=== PATIENT | female | born 1985 | race Caucasian/White ===

== ENCOUNTER 2018-06-11 10:14 | Outpatient (REF) | payer MEDICAID, SELFPAY ==
[2018-06-11 22:09] LABS: HCT 35.7 % (36.0-46.0); HGB 10.7 g/dL (12.0-15.5); Mean Corpuscular Hemoglobin 25.5 pg (27.0-33.0); Mean Corpuscular Volume 85.2 fL (80-95); Mean Platelet Volume 11.2 fL (8.0-11.0); Platelet Count 308 x1000/uL (130-400); RBC 4.19 m/cumm (4.00-5.20); RBC Distribution Width 15.3 % (11.7-14.6); White Blood Cell Count 8.24 k/cumm (4.4-10.8)
[2018-06-11 22:47] LABS: Cholesterol 143 mg/dL (50-200); Glucose 80 mg/dL (70-100); HDL Cholesterol 42 mg/dL (40-60); LDL CHOLESTEROL 91 mg/dL (<100); TSH 1.61 uIU/mL (0.358-3.74); Triglyceride 121 mg/dL (30-150)
== END 2018-06-11 10:34 ==
LOC: NCHCN 10:14
PROVIDERS: PCP Internal Medicine; Visit Provider Registered Nurse
DX: R53.83 Other fatigue (principal); Z83.3 Family history of diabetes mellitus; Z00.00 Encounter for general adult medical examination without abnormal findings
CPT/HCPCS: 80061; 82947; 83721; 85027; 84443

== ENCOUNTER 2018-06-14 09:18 | Outpatient (REF) | payer MEDICAID, SELFPAY ==
[2018-06-14 21:11] LABS: Iron 23 ug/dL (50-175); Total Iron Binding Capacity 528 ug/dL (250-450); Transferrin Sat 4 % (15-50)
[2018-06-14 21:18] LABS: Anion Gap 10.2 mmol/L (3-11); BUN 14 mg/dL (7-18); CO2 25.8 mmol/L (21.0-32.0); CREATININE 0.76 mg/dL (0.55-1.02); Calcium 8.7 mg/dL (8.5-10.1); Chloride 104 mmol/L (98-107); Ferritin 9 ng/mL (8-388); Glucose 86 mg/dL (70-100); Sodium 140 mmol/L (136-145)
[2018-06-14 21:55] LABS: C-Reactive Protein 0.83 mg/dL (0.0-0.3)
== END 2018-06-14 09:38 ==
LOC: NCHCN 09:18
PROVIDERS: PCP Internal Medicine; Visit Provider Registered Nurse
DX: Z86.2 Personal history of diseases of the blood and blood-forming organs and certain disorders involving the immune mechanism (principal); Z83.3 Family history of diabetes mellitus
CPT/HCPCS: 80048; 82728; 83540; 83550; 86140

== ENCOUNTER 2018-07-03 10:22 | Outpatient (REF) | payer MEDICAID, SELFPAY ==
[2018-07-03 22:08] LABS: Abs Immature Grans 0.02 k/cumm (0.0-0.09); Absolute Basophil Count 0.03 k/cumm (0.0-0.2); Absolute Eosinophil Count 0.11 k/cumm (0.0-0.7); Absolute Lymphocyte Count 2.23 k/cumm (1.2-3.4); Absolute Neutrophil Count 3.88 k/cumm (1.2-6.7); Basophils % 0.4; Eosinophils % 1.6; HCT 38.2 % (36.0-46.0); HGB 11.8 g/dL (12.0-15.5); Immature Grans % 0.3; Lymphocytes % 32.9; Mean Corp. HGB Concentration 30.9 g/dL (32.0-36.0); Mean Corpuscular Hemoglobin 26.2 pg (27.0-33.0); Mean Corpuscular Volume 84.9 fL (80-95); Mean Platelet Volume 11.1 fL (8.0-11.0); Monocytes % 7.4; Neutrophils % 57.4; Platelet Count 293 x1000/uL (130-400); RBC Distribution Width 17.2 % (11.7-14.6); White Blood Cell Count 6.77 k/cumm (4.4-10.8)
[2018-07-03 22:15] LABS: ALT 24 U/L (12-78); AST 15 U/L (15-37); Albumin 3.4 g/dL (3.4-5.0); Alkaline Phosphatase 66 U/L (46-116); Anion Gap 9.7 mmol/L (3-11); BUN 12 mg/dL (7-18); Bilirubin, Total 0.2 mg/dL (0.2-1.0); CO2 26.3 mmol/L (21.0-32.0); CREATININE 0.79 mg/dL (0.55-1.02); Chloride 104 mmol/L (98-107); Glucose 84 mg/dL (70-100); Lipase 136 U/L (73-393); Potassium 4.1 mmol/L (3.5-5.1); Sodium 140 mmol/L (136-145)
== END 2018-07-03 10:42 ==
LOC: NCHCN 10:22
PROVIDERS: PCP Internal Medicine; Visit Provider Registered Nurse
DX: R10.9 Unspecified abdominal pain (principal); Z87.19 Personal history of other diseases of the digestive system; R82.90 Unspecified abnormal findings in urine; R30.0 Dysuria
CPT/HCPCS: 80053; 83690; 87077; 85025; 87086; 87186

== ENCOUNTER 2018-08-02 09:42 | Outpatient (REF) | payer MEDICAID, SELFPAY ==
[2018-08-02 22:18] LABS: Folate 8.5 ng/mL (8.6-20.0); Vitamin B12 296 pg/mL (193-986)
[2018-08-05 08:53] LABS: Vitamin D 25 Total 17.9 ng/ml (30-100)
== END 2018-08-02 10:02 ==
LOC: NCHCN 09:42
PROVIDERS: PCP Internal Medicine; Visit Provider Nurse Practitioner Family
DX: F41.8 Other specified anxiety disorders (principal); F43.10 Post-traumatic stress disorder, unspecified; R45.851 Suicidal ideations; Z65.9 Problem related to unspecified psychosocial circumstances; Z62.810 Personal history of physical and sexual abuse in childhood
CPT/HCPCS: 82306; 82607; 82746

== ENCOUNTER 2019-06-18 12:08 | Outpatient (REF) | payer MEDICAID, SELFPAY ==
[2019-06-18 22:47] LABS: Abs Immature Grans 0.02 k/cumm (0.0-0.09); Absolute Basophil Count 0.03 k/cumm (0.0-0.2); Absolute Eosinophil Count 0.21 k/cumm (0.0-0.7); Absolute Lymphocyte Count 1.79 k/cumm (1.2-3.4); Absolute Monocyte Count 0.56 k/cumm (0.11-0.7); Absolute Neutrophil Count 4.53 k/cumm (1.2-6.7); Basophils % 0.4; Eosinophils % 2.9; HCT 39.8 % (36.0-46.0); HGB 13.3 g/dL (12.0-15.5); Immature Grans % 0.3; Lymphocytes % 25.1; Mean Corp. HGB Concentration 33.4 g/dL (32.0-36.0); Mean Corpuscular Hemoglobin 30.8 pg (27.0-33.0); Mean Corpuscular Volume 92.1 fL (80-95); Mean Platelet Volume 10.7 fL (8.0-11.0); Monocytes % 7.8; Neutrophils % 63.5; Platelet Count 329 x1000/uL (130-400); RBC 4.32 m/cumm (4.00-5.20); RBC Distribution Width 12.6 % (11.7-14.6); White Blood Cell Count 7.14 k/cumm (4.4-10.8)
[2019-06-18 23:17] LABS: ALT 33 U/L (14-59); AST 18 U/L (15-37); Albumin 3.8 g/dL (3.4-5.0); Alkaline Phosphatase 58 U/L (46-116); Anion Gap 9.9 mmol/L (3-11); BUN 10 mg/dL (7-18); Bilirubin, Total 0.3 mg/dL (0.2-1.0); CO2 24.1 mmol/L (21.0-32.0); CREATININE 0.78 mg/dL (0.55-1.02); Chloride 107 mmol/L (98-107); Glucose 85 mg/dL (70-100); Potassium 4.1 mmol/L (3.5-5.1); Sodium 141 mmol/L (136-145); TSH 1.31 uIU/mL (0.36-3.74); Total Protein 7.2 g/dL (6.4-8.2)
== END 2019-06-18 12:28 ==
LOC: NCHCN 12:08
PROVIDERS: PCP Internal Medicine; Visit Provider Registered Nurse
DX: N93.9 Abnormal uterine and vaginal bleeding, unspecified (principal); K76.89 Other specified diseases of liver; K76.0 Fatty (change of) liver, not elsewhere classified
CPT/HCPCS: 80053; 84443; 85025

== ENCOUNTER 2019-10-28 09:10 | Outpatient (REF) | payer MEDICAID, SELFPAY ==
[2019-10-28 22:02] LABS: Vitamin B12 354 pg/mL (193-986)
[2019-10-30 04:44] LABS: Vitamin D 25 Total 17.2 ng/ml (30-100)
== END 2019-10-28 09:30 ==
LOC: NCHCN 09:10
PROVIDERS: PCP Registered Nurse; Visit Provider Registered Nurse
DX: R53.83 Other fatigue (principal)
CPT/HCPCS: 82306; 82607

== ENCOUNTER 2020-01-02 12:16 | Outpatient (REF) | payer MEDICAID, SELFPAY ==
[2020-01-02 21:01] LABS: Glucose 93 mg/dL (74-106)
[2020-01-05 09:45] LABS: Vitamin D 25 Total 20.7 ng/ml (30-100)
== END 2020-01-02 12:36 ==
LOC: NCHCN 12:16
PROVIDERS: PCP Registered Nurse; Visit Provider Registered Nurse
DX: E55.9 Vitamin D deficiency, unspecified (principal); Z11.3 Encounter for screening for infections with a predominantly sexual mode of transmission; Z83.3 Family history of diabetes mellitus
CPT/HCPCS: 82306; 82947

== ENCOUNTER 2020-03-24 20:48 | Emergency (ER) | payer MEDICAID, SELFPAY ==
[2020-03-24] VITALS (11 sets, daily range): BP systolic 121–153; BP diastolic 66–95; PULSE 72–88; RESP 16; TEMP 37; O2SAT 95–98
--- NOTE | 2020-03-24 20:45 | RT.EKG_ITS ---
APPROVED REPORT Exam: Resting ECG Patient Location: E HR:76 bpm ECG Measurements Heart Rate 76 AXIS OK 141 P 55 QRSd 99 QRS 23 QT 408 T 37 QTc 460 <Conclusion> EKG 20: 57 Sinus rhythm, rate 76, intervals normal, no significant ST elevations or depressions, no evidence of STEMI, no S1Q3T3.
--- NOTE | 2020-03-24 21:08 | W.ED.GENAD ---
Discharge Plan Disposition Patient Disposition: HOME Condition: Good Discharge Details Chief Complaint: Chest Pain Clinical Impression: Bronchitis, Chest wall muscle strain Primary Care Provider: ALCIRA VALDES ED Provider: Marshal Warren Home Meds and New Rx's Prescriptions: New lidocaine [Lidoderm] 1 PATCH patch 1 patch Topical Q24H Qty: 4 RF: 0 Continued sertraline 100 mg Tablet 100 mg PO DAILY RF: 0 buspirone 10 mg Tablet 10 mg PO BID RF: 0 montelukast 10 mg Tablet 10 mg PO DAILY RF: 0 albuterol sulfate [ProAir HFA] 90 mcg/actuation Hfa Aerosol Inhaler 2 puff INHALATION 6XD PRNRF: 0 cholecalciferol (vitamin D3) [Vitamin D3] 10 mcg (400 unit) Tablet 10 mcg PO DAILY RF: 0 Flovent HFA 110 mcg/actuation Hfa Aerosol Inhaler 2 puff INHALATION BID RF: 0 Discharge Instructions Instructions: Muscle Strain (ED), Acute Bronchitis (ED) Additional Instructions: At this time. Blood work, and imaging shows no evidence of blood clot, heart problem, pneumonia, or any suggestions clinically of coronavirus. There is suggestion of mild bronchial irritation which may be from a mild virus, or more likely potential allergies. No signs of pneumonia though. Your symptoms are also consistent with a notable pectoralis muscle strain, and likely from all the moving that you have done, potentially worsened by the fibromyalgia. Please ice your chest wall where it hurts, use the Lidoderm patch as directed. Get plenty of rest over the next 2 days injury and to 12 cups of fluid daily. If you notice any worsening of your symptoms, or any new symptoms such as vomiting, diarrhea, fever, chills, shortness of breath, chest pain, numbness, weakness, or fainting , please return immediately to the emergency department for reevaluation. Please follow up with your primary care provider as soon as possible for reassessment and reevaluation. As always, it was a pleasure participating in your medical care today. Referrals: ALCIRA VALDES, [employer] [Primary Care Provider] - Medical Decision Making 34-year-old female with a past medical history of asthma, fibromyalgia, presents today for evaluation of left-sided chest pain shortness of breath. Patient states that for the last few days they have been doing a significant amount of moving in their house. They are moving from one close down to another locally here. She has been doing a lot of activity in labor, early this morning she noticed that she had mild soreness in the left side of her chest which she describes as a tightness. Nonexertional. She did have mild shortness of breath associated with it. Pain is was made worse with movements of the left arm, activity, and palpation of the left chest. She did take her inhalers this did not improve that at all. She states that this does feel different than her normal asthma. Denies PE risk factors such as recent long car rides, immobilization, recent surgery, prior history of DVT or PE, family history of PE or DVT, morbid obesity, exogenous estrogen and smoking, hemoptysis, history of cancer. Patient does state that her mother does have history of cardiac disease at age of 50. Patient denies any history of personal tobacco abuse. No other complaints at this time. No other modifying factors. The patient denies any recent foreign travel or contact with recent immigrants, Travelers, or peoples of [place] or [facility] or internationally. The patient denies any recent travel to high risk countries or high risk areas in the [place], or other areas of noted or significant coronavirus infection. Physical exam is notably unremarkable, no wheezing, no rhonchi or rales. No calf tenderness or swelling. The only objective finding is notable reproducible tenderness on palpation of the pectoralis major minor muscles and left parasternal intercostal joints. Suspect musculoskeletal strain secondary to the lifting that she has been performing. Unlikely to be PE, ACS or other acute process. Will give Lidoderm patch, get screening labs to rule out acute life-threatening etiologies, monitor closely and reassess. 10:25 PM Patient's laboratory work-up is returned notably unremarkable. Electrolytes normal, troponin normal, no indication for repeat troponin as her symptoms have been present for 2 days. D-dimer negative. Lipase normal. Chest x-ray shows mild peribronchial thickening and perihilar stranding suggestive of possible bronchitis, potentially from allergies versus viral etiology, no groundglass opacities or haziness suggestive of coronavirus. Symptoms certainly inconsistent with significant infectious etiology, no fever, chills or other complaints. She does have notable reproducible pain over the left pectoralis muscle suggestive of a left muscle strain. At this time with notably consistently stable vital signs and no signs of acute cardiac or pulmonary process, in conjunction with negative d-dimer and troponins patient will be discharged home. Suggest muscle strain mild bronchitis. Discussed red flags for which to return. I have extensively reviewed the treatment plan and discharge instructions with the patient. I have addressed all patient concerns at this time. The patient was made aware of what symptoms to monitor for that would warrant a return to the emergency department. Discussed the plan with the patient, they demonstrate verbal understanding and agreement with our assessment and plan at this time. Also of note I did contact the patient's and discussed the case with him as well. He is in agreement with the plan. EKG 20: 57 Sinus rhythm, rate 76, intervals normal, no significant ST elevations or depressions, no evidence of STEMI, no S1Q3T3. FINDINGS: Lungs: Mild peribronchial thickening and perihilar stranding suggesting possible bronchitis. Normal pulmonary expansion. Pulmonary vasculature grossly normal. No infiltrates. Pleural space: No pleural effusion. No pneumothorax. Heart/Mediastinum: Heart size normal. No tracheal/mediastinal shift. Bones/joints: No acute osseous abnormalities are identified. IMPRESSION: Mild peribronchial thickening and perihilar stranding suggesting possible bronchitis. No gross pulmonary infiltrates. Thank you for allowing us to participate in the care of your patient. Dictated and Authenticated by: Flynn Clayton MD 03/24/2020 9:50 PM Eastern Time ([place] & [place]) HPI General Date/Time Provider Initiated Documentation: 03/24/20 20:53. HPI Narrative: 34-year-old female with a past medical history of asthma, fibromyalgia, presents today for evaluation of left-sided chest pain shortness of breath. Patient states that for the last few days they have been doing a significant amount of moving in their house. They are moving from one close down to another locally here. She has been doing a lot of activity in labor, early this morning she noticed that she had mild soreness in the left side of her chest which she describes as a tightness. Nonexertional. She did have mild shortness of breath associated with it. Pain is was made worse with movements of the left arm, activity, and palpation of the left chest. She did take her inhalers this did not improve that at all. She states that this does feel different than her normal asthma. Denies PE risk factors such as recent long car rides, immobilization, recent surgery, prior history of DVT or PE, family history of PE or DVT, morbid obesity, exogenous estrogen and smoking, hemoptysis, history of cancer. Patient does state that her mother does have history of cardiac disease at age of 50. Patient denies any history of personal tobacco abuse. No other complaints at this time. No other modifying factors. The patient denies any recent foreign travel or contact with recent immigrants, Travelers, or peoples of [place] or [facility] or internationally. The patient denies any recent travel to high risk countries or high risk areas in the [place], or other areas of noted or significant coronavirus infection. Related Data Home Medications Medication Instructions Recorded Confirmed Flovent HFA 2 puff INHALATION BID 03/24/20 03/24/20 albuterol sulfate [ProAir HFA] 2 puff INHALATION 6XD PRN 03/24/20 03/24/20 buspirone 10 mg PO BID 03/24/20 03/24/20 cholecalciferol (vitamin D3) 10 mcg PO DAILY 03/24/20 03/24/20 [Vitamin D3] lidocaine [Lidoderm] 1 patch TOPICAL Q24H #4 patch 03/24/20 montelukast 10 mg PO DAILY 03/24/20 03/24/20 sertraline 100 mg PO DAILY 03/24/20 03/24/20 Previous Rx's Medication Instructions Recorded lidocaine [Lidoderm] 1 patch TOPICAL Q24H #4 patch 03/24/20 Allergies Allergy/AdvReac Type Severity Reaction Status Date / Time acetaminophen [From Tylox] Allergy Unverified 03/24/20 21:02 codeine Allergy Unverified 03/24/20 21:02 latex Allergy Unverified 03/24/20 21:02 orange Allergy Unverified 03/24/20 21:02 oxycodone [From Tylox] Allergy Unverified 03/24/20 21:02 Sulfa (Sulfonamide Allergy Unverified 03/24/20 21:02 Antibiotics) General Stated Complaint: Chest Pain MICHA: 2 Review of Systems All systems reviewed & are unremarkable except as noted in HPI and below PFSH Social History Smoking/Tobacco Use Status: Never Alcohol Intake: never Drug use: Never Substance use type: does not use Do you feel safe at home: Yes Do you feel safe in your relationship?: Yes Exam Narrative Exam Narrative: 1.Const: Well-nourished, Well-developed, appearing stated age 2.Eyes: PERRL, no conjunctival injection, and symmetrical lids. 3.ENT: Atraumatic external nose and ears. Moist MM. Neck: Symmetric, trachea midline, No thyromegaly. No swelling or erythema in the posterior oropharynx. No signs of airway compromise whatsoever. No stridor. 4.CVS: +S1/S2, No murmurs or gallops. Peripheral pulses 2+ and equal in all extremities. Brisk capillary refill in all extremities. 5.RESP: Unlabored respiratory effort. Clear to auscultation bilaterally. No wheezes rales or rhonchi 6.GI: Soft, Nontender/Nondistended, No hepatosplenomegaly. No guarding or rebound. 7.MSK: Normocephalic/Atraumatic, Extremities w/o deformity or ttp No cyanosis or clubbing, Normal movement of all extremities. No unilateral calf swelling, no pitting edema. Patient has notable reproducible left-sided chest wall tenderness is present on palpation of the pectoralis major and minor muscles, which is a reproduction of the patient's described pain. Mild to moderate pain also noted over the left parasternal intercostal joints. Negative pain or tenderness on palpation of the calves. 8.Skin: Warm, Dry. No rashes or lesions. 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 Sensation grossly intact, no focal neurologic deficits. 10.Psych: (AAO) x3. Appropriate mood and affect Course Vital Signs Vital signs: Vital Signs Temperature 37 C 03/24/20 20:54 Pulse 88 03/24/20 20:54 Respiratory Rate 16 03/24/20 20:54 Blood Pressure 153/87 H 03/24/20 20:54 Pulse Oximetry 98 03/24/20 20:54 Temperature 37 C 03/24/20 20:54 Temperature Source Skin 03/24/20 20:54 Pulse 88 03/24/20 20:54 Respiratory Rate 16 03/24/20 20:58 Respiratory Effort 03/24/20 20:58 Respiratory Depth Normal 03/24/20 20:58 Respiratory Pattern Normal 03/24/20 20:58 Blood Pressure 153/87 H 03/24/20 20:54 Blood Pressure Position Sitting 03/24/20 20:54 Pulse Oximetry 98 03/24/20 20:54 Oxygen Delivery Method Room Air 03/24/20 20:54 Oxygen Flow Rate 0 03/24/20 20:54 Pain Level 6 03/24/20 20:54
[2020-03-24 21:30] LABS: BE (Venous) -1.2 mmol/L (-3-3); HCO3 (Venous) 23 mmol/L (22-28); O2 Sat (Venous) 92 % (70-80); TCO2 (Venous) 21 mmol/L (22-29); pCO2 (Venous) 35 mm/Hg (34-47); pH (Venous) 7.43 (7.35-7.45); pO2 (Venous) 59 mm/Hg (28-44)
[2020-03-24 21:33] LABS: Abs Immature Grans 0.02 k/cumm (0.0-0.09); Absolute Basophil Count 0.02 k/cumm (0.0-0.2); Absolute Eosinophil Count 0.22 k/cumm (0.0-0.7); Basophils % 0.2; Eosinophils % 2.7; HCT 40.9 % (36.0-46.0); HGB 13.6 g/dL (12.0-15.5); Immature Grans % 0.2 %; Mean Corp. HGB Concentration 33.3 g/dL (32.0-36.0); Mean Corpuscular Hemoglobin 29.4 pg (27.0-33.0); Mean Corpuscular Volume 88.3 fL (80-95); Mean Platelet Volume 10.4 fL (8.0-11.0); Monocytes % 9.9; Platelet Count 304 x1000/uL (130-400); RBC 4.63 m/cumm (4.00-5.20); RBC Distribution Width 13.5 % (11.7-14.6); White Blood Cell Count 8.06 k/cumm (4.4-10.8)
--- NOTE | 2020-03-24 21:40 | DI.RAD_ITS ---
EXAM: XR CHEST 2V PA LATERAL CLINICAL HISTORY: cough, SOB, left chest pain TECHNIQUE: 2D digital imaging was performed. COMPARISON: No exams were available for comparison FINDINGS: MEDIASTINUM: Normal. HEART: Normal. PULMONARY VASCULATURE: Normal. LUNGS: Clear. PLEURAL SPACE: No pleural effusion or pneumothorax. BONE:Normal. OTHER FINDINGS:Normal. IMPRESSION: No acute pulmonary findings. DATA REPOSITORY: RADIATION DOSE DELIVERED:
--- NOTE | 2020-03-24 21:50 | DI.VRAD_ITS ---
PROCEDURE INFORMATION: Exam: XR Chest, 2 Views Exam date and time: 03/24/2020 9:29 PM Age: 34 years old Clinical indication: Cough and shortness of breath; Patient HX: Left sided chest pain. TECHNIQUE: Imaging protocol: XR of the chest Views: 2 views. COMPARISON: No relevant prior studies available. FINDINGS: Lungs: Mild peribronchial thickening and perihilar stranding suggesting possible bronchitis. Normal pulmonary expansion. Pulmonary vasculature grossly normal. No infiltrates. Pleural space: No pleural effusion. No pneumothorax. Heart/Mediastinum: Heart size normal. No tracheal/mediastinal shift. Bones/joints: No acute osseous abnormalities are identified. IMPRESSION: Mild peribronchial thickening and perihilar stranding suggesting possible bronchitis. No gross pulmonary infiltrates. Dictated and Authenticated by: Flynn Clayton MD. Ordering:CHE Araya MD
[2020-03-24] MEDS: Lidocaine 5% Patch 1 PATCH TP (21:56)
[2020-03-24] MEDS: Normal Saline 500 ML IV (21:58)
[2020-03-24 22:01] LABS: ALT 26 U/L (14-59); AST 17 U/L (15-37); Albumin 3.3 g/dL (3.4-5.0); Alkaline Phosphatase 73 U/L (46-116); Anion Gap 10.1 mmol/L (3-11); BUN 8 mg/dL (7-18); Bilirubin, Total 0.3 mg/dL (0.2-1.0); CO2 23.9 mmol/L (21.0-32.0); CREATININE 1.22 mg/dL (0.55-1.02); Calcium 8.5 mg/dL (8.5-10.1); Chloride 105 mmol/L (98-107); Estimated GFR 49.87 (mL/min/1.73m2); Glucose 98 mg/dL (74-106); Lipase 124 U/L (73-393); Potassium 3.7 mmol/L (3.5-5.1); Sodium 139 mmol/L (136-145)
[2020-03-24 22:02] LABS: Troponin I < 0.05 ng/mL (<0.06)
[2020-03-24 22:08] LABS: D-Dimer 240 ng/mlFEU (<500)
== END 2020-03-24 22:36 | disposition home or self-care (01) ==
PROVIDERS: Emergency Provider Student in an Organized Health Care Education/Training Program; PCP Registered Nurse
DX: J20.9 Acute bronchitis, unspecified (principal); S29.011A Strain of muscle and tendon of front wall of thorax, initial encounter; X50.0XXA Overexertion from strenuous movement or load, initial encounter
CPT/HCPCS: 36415; 80053; 82805; 83690; 93005; 99285; 71046; 84484; 85025; 85379; 93010; 99284

== ENCOUNTER 2021-03-31 10:33 | Emergency (ER) | payer MEDICAID, SELFPAY ==
[2021-03-31] VITALS (25 sets, daily range): BP systolic 129–177; BP diastolic 87–122; PULSE 66–106; RESP 15–30; TEMP 36.5; O2SAT 93–100
--- NOTE | 2021-03-31 11:15 | DI.RAD_ITS ---
Exam(s) XR HIP RT COMPLETE AP PELVIS EXAM: XR HIP RT COMPLETE AP PELVIS CLINICAL HISTORY: right hip pain, no trauma. TECHNIQUE: 2D digital imaging was performed. COMPARISON: No exams were available for comparison FINDINGS: There is no evidence of pelvic nor hip fracture. No obvious degenerative changes. Sacroiliac joints appear unremarkable. Bone density is normal. IMPRESSION: DATA REPOSITORY: RADIATION DOSE DELIVERED:
--- NOTE | 2021-03-31 11:15 | RT.EKG_ITS ---
APPROVED REPORT Exam: Resting ECG Reason for Exam: dizziness Patient Location: E HR:77 bpm ECG Measurements Heart Rate 77 AXIS ND 144 P 45 QRSd 104 QRS -10 QT 405 T 17 QTc 459 Conclusion Sinus rhythm...normal P axis, V-rate 60- 99
[2021-03-31] MEDS: Normal Saline 1,000 ML 1000 ML IV (11:30)
[2021-03-31 11:40] LABS: Abs Immature Grans 0.05 10^3/uL (0.0-0.06); Absolute Basophil Count 0.06 10^3/uL (0.0-0.2); Absolute Eosinophil Count 0.31 10^3/uL (0.0-0.7); Absolute Lymphocyte Count 2.57 10^3/uL (1.2-3.4); Absolute Monocyte Count 0.62 10^3/uL (0.1-0.8); Absolute Neutrophil Count 4.45 10^3/uL (1.2-6.7); Basophils % 0.7; Eosinophils % 3.8; HCT 40.3 % (36.0-46.0); HGB 13.5 g/dL (11.2-15.7); Immature Grans % 0.6; Lymphocytes % 31.9; MCH 30.1 pg (27.0-33.0); MCHC 33.5 % (32.0-36.0); Monocytes % 7.7; Neutrophils % 55.3; Nucleated RBC 0 %; Platelet Count 277 10^3/uL (130-400); RBC 4.48 10^6/uL (3.93-5.22); RDW 12.1 % (11.7-14.6); RDW-SD 39.7 fL; WBC 8.06 10^3/uL (4.4-10.8)
[2021-03-31] MEDS: Meclizine 25 MG TAB PO (11:41)
[2021-03-31] MEDS: Prochlorperazine 10 MG/2 ML VIAL 5 MG IVP (11:42)
[2021-03-31] MEDS: Normal Saline 50 ML (11:42)
[2021-03-31 12:07] LABS: ALT 47 U/L (14-59); AST 33 U/L (15-37); Albumin 3.4 g/dL (3.4-5.0); Alkaline Phosphatase 75 U/L (46-116); BUN 14 mg/dL (7-18); Bilirubin, Total 0.3 mg/dL (0.2-1.0); CREATININE 0.7 mg/dL (0.55-1.02); Calcium 8.6 mg/dL (8.5-10.1); Chloride 106 mmol/L (98-107); Glucose 115 mg/dL (74-106); Magnesium 1.9 mg/dL (1.8-2.4); Sodium 140 mmol/L (136-145); Total Protein 7.1 g/dL (6.4-8.2); Troponin I < 0.05 ng/mL (<0.06)
--- NOTE | 2021-03-31 12:57 | ED.GENADUL_ITS ---
Discharge Plan Disposition Patient Disposition: HOME Condition: Good Discharge Details Clinical Impression: Dizziness, Acute pain of right hip Primary Care Provider: Georgie Stewart ED Provider: Mercedes Lee Home Meds and New Rx's Prescriptions: New meclizine 25 mg tablet 25 mg PO BID-TID Qty: 14 RF: 0 Continued buspirone 10 mg Tablet 20 mg PO BID RF: 0 montelukast 10 mg Tablet 10 mg PO DAILY RF: 0 albuterol sulfate [ProAir HFA] 90 mcg/actuation Hfa Aerosol Inhaler 2 puff INHALATION 6XD PRNRF: 0 cholecalciferol (vitamin D3) [Vitamin D3] 10 mcg (400 unit) Tablet 10 mcg PO DAILY RF: 0 Flovent HFA 110 mcg/actuation Hfa Aerosol Inhaler 2 puff INHALATION BID RF: 0 lidocaine [Lidoderm] 1 PATCH patch 1 patch Topical Q24H Qty: 4 RF: 0 Discharge Instructions Instructions: Dizziness (ED) Additional Instructions: Have your blood pressure rechecked by her primary care physician Take the meclizine as needed for dizziness Do not continue to use the lidocaine You may take ibuprofen and Tylenol for the pain in your hip, see your primary care physician in 24 to 48 hours for reevaluation and return earlier should you have new or worsening complaints You need to come back again every 6-8 hours as needed Discharge Data Discharge Date/Time-TO BE ENTERED AT DEPARTURE: 03/31/21 13:23 Medical Decision Making Medication given lack of meaningful, feel markedly improved, no evidence of central process, BPV Right hip x-ray does not show acute abnormality Patient ambulatory with steady gait Prescription for meclizine for home Clinical exam and improvement with meclizine only, low suspicion for vertebral or carotid artery dissection clinically Close outpatient reevaluation Although I have low suspicion that the oral lidocaine is precipitating her symptoms, she is instructed to discontinue this medication follow-up with her de ntist She has no abdominal tenderness on exam, low suspicion for intra-abdominal pathology Return precautions discussed, patient expressed understanding, orthostatics negative Diagnostic labs without acute abnormality, stable electrolyte and EKG, negative troponin Medical Records Medical records reviewed: Yes I reviewed the patient's medical records. Lab Data Lab results reviewed: Yes I reviewed the patient's lab results. HPI General Mode of arrival: ambulatory . Date/Time Provider Initiated Documentation: 03/31/21 10:53 . Limitations to Documentation: no limitations . Information obtained by: patient . HPI Narrative: This 35-year-old female presents with report of dizziness which she describes as vertigo. She states that the started a half an hour after using some lidocaine on her cheeks. She is attributing this to the lidocaine administration. She denies any chest pain or shortness of breath. She states she waited several hours and attempted to use lidocaine again and felt worse. She denies any current headache, strength or sensation change. She denies any fever or chills. She has also some right hip pain which is been going on for the past several weeks she reports. She denies any falls or injuries. She denies any neck manipulations. She denies any vision change, specifically no diplopia. She denies any strength or sensation change. She denies any chance of . She denies any meningism us or fever. She denies any urinary symptoms. Related Data Home Medications Medication Instructions Recorded Confirmed Flovent HFA 2 puff INHALATION BID 03/24/20 03/31/21 albuterol sulfate [ProAir HFA] 2 puff INHALATION 6XD PRN 03/24/20 03/31/21 buspirone 20 mg PO BID 03/24/20 03/31/21 cholecalciferol (vitamin D3) 10 mcg PO DAILY 03/24/20 03/31/21 [Vitamin D3] lidocaine [Lidoderm] 1 patch TOPICAL Q24H #4 patch 03/24/20 03/31/21 montelukast 10 mg PO DAILY 03/24/20 03/31/21 meclizine 25 mg PO BID-TID #14 tab 03/31/21 Previous Rx's Medication Instructions Recorded lidocaine [Lidoderm] 1 patch TOPICAL Q24H #4 patch 03/24/20 meclizine 25 mg PO BID-TID #14 tab 03/31/21 Allergies Allergy/AdvReac Type Severity Reaction Status Date / Time acetaminophen [From Tylox] Allergy Unverified 03/31/21 10:47 codeine Allergy Unverified 03/31/21 10:47 latex Allergy Unverified 03/31/21 10:47 orange Allergy Unverified 03/31/21 10:47 oxycodone [From Tylox] Allergy Unverified 03/31/21 10:47 Sulfa (Sulfonamide Allergy Unverified 03/31/21 10:47 Antibiotics) General Stated Complaint: Dizzy/Sync MICHA: 3 Review of Systems All systems reviewed & are unremarkable except as noted in HPI and below PFSH Social History Smoking/Tobacco Use Status: Never Smoking risk assessment performed?: Yes Alcohol Intake: never Drug use: Never Substance use type: does not use Do you feel safe at home: Yes Do you feel safe in your relationship?: Yes Exam Const General: cooperative and no acute distress HENMT Mouth: oral mucosae normal Other: Uvula midline Eyes Pupils: PERRL EOM: EOM intact bilaterally and nystagmus Other: Horizontal nystagmus Neck Other: No carotid bruit Resp Effort & Inspection: normal respiratory effort Auscultation: clear to auscultation bilaterally Cardio Rate: regular rate Rhythm: regular rhythm GI Other: No abdominal tenderness, specifically no right lower quadrant tenderness, no CVA tenderness, no abdominal bruit or pulsatile mass Neuro General: patient alert, patient oriented x3 and CN's II-XI intact bilaterally Cranial Nerves: nystagmus Cognition: normal cognition Speech: speech normal Extrem Other: Distal pulses intact, right hip tenderness on exam, mildly decreased range of motion Course Vital Signs Vital signs: Vital Signs Temperature 36.5 C 03/31/21 10:38 Pulse 99 H 03/31/21 10:38 Respiratory Rate 16 03/31/21 10:38 Blood Pressure 177/122 H 03/31/21 10:38 Pulse Oximetry 100 03/31/21 10:38 Temperature 36.5 C 03/31/21 10:38 Temperature Source Skin 03/31/21 10:38 Pulse 67 03/31/21 12:00 Pulse 66 03/31/21 12:30 Respiratory Rate 18 03/31/21 12:30 Respiratory Effort Non-Labored 03/31/21 10:55 Respiratory Depth Normal 03/31/21 10:55 Respiratory Pattern Normal 03/31/21 10:55 Blood Pressure 141/87 H 03/31/21 12:00 Blood Pressure Mean 99 03/31/21 12:00 Blood Pressure Position Sitting 03/31/21 10:38 Pulse Oximetry 95 03/31/21 12:30 Oxygen Delivery Method Room Air 03/31/21 10:38 Oxygen Flow Rate 0 03/31/21 10:38 Pain Level 8 03/31/21 10:38 Lab/Test Results Lab/Test Results: Laboratory Tests Range/Units 03/31/21 03/31/21 11:30 11:30 WBC (4.4-10.8) 10^3/uL 8.06 RBC (3.93-5.22) 10^6/uL 4.48 Hgb (11.2-15.7) g/dL 13.5 Hct (36.0-46.0) % 40.3 MCV (80-95) fL 90.0 MCH (27.0-33.0) pg 30.1 MCHC (32.0-36.0) % 33.5 RDW (11.7-14.6) % 12.1 Plt Count (130-400) 10^3/uL 277 MPV (8.0-11.0) fL 10.0 Immature Gran % 0.6 Neutrophils % 55.3 Lymphocytes % 31.9 Monocytes % 7.7 Eosinophils % 3.8 Basophils % 0.7 Nucleated RBC % % 0 Absolute Neutrophils (1.2-6.7) 10^3/uL 4.45 Absolute Lymphocytes (1.2-3.4) 10^3/uL 2.57 Absolute Monocytes (0.1-0.8) 10^3/uL 0.62 Absolute Eosinophils (0.0-0.7) 10^3/uL 0.31 Absolute Basophils (0.0-0.2) 10^3/uL 0.06 Sodium (136-145) mmol/L 140 Potassium (3.5-5.1) mmol/L 4.0 Chloride (98-107) mmol/L 106 Carbon Dioxide (21.0-32.0) mmol/L 24.0 Anion Gap (3-11) mmol/L 10.0 BUN (7-18) mg/dL 14 Creatinine (0.55-1.02) mg/dL 0.7 Estimated GFR/1.73 m2 (mL/min/1.73m2) >= 60.00 Glucose (74-106) mg/dL 115 H Calcium (8.5-10.1) mg/dL 8.6 Magnesium (1.8-2.4) mg/dL 1.9 Total Bilirubin (0.2-1.0) mg/dL 0.3 AST (15-37) U/L 33 ALT (14-59) U/L 47 Alkaline Phosphatase (46-116) U/L 75 Troponin I (<0.06) ng/mL < 0.05 Total Protein (6.4-8.2) g/dL 7.1 Albumin (3.4-5.0) g/dL 3.4
== END 2021-03-31 13:23 | disposition home or self-care (01) ==
PROVIDERS: Emergency Provider Physician Assistant; PCP Registered Nurse
DX: R42 Dizziness and giddiness (principal); M25.551 Pain in right hip
CPT/HCPCS: 80053; 93005; 96361; 96374; 99284; 73502; 83735; 84484; 85025; 93010; 99283; J0780

== ENCOUNTER 2021-11-23 12:44 | Outpatient (CLI) | payer MEDICAID, SELFPAY ==
--- NOTE | 2021-11-23 10:57 | DI.CT_ITS ---
Exam(s) CT CHEST PE CTA EXAM: CT CHEST PE CTA CLINICAL HISTORY: DYSPNEA, R06.00, POST COVID, CONCERN FOR PE. TECHNIQUE: Imaging Protocol: CT angiography of the chest was performed using pulmonary embolus [place]. Multi planar reconstructions were performed. CONTRAST MATERIAL: Intravenous: Omnipaque 350 Contrast volume: 100 cc COMPARISON: CR,XR XR CHEST 2V PA LATERAL from 03/24/2020 FINDINGS: CHEST: PULMONARY ARTERIES: There are no intraluminal filling defects to suggest acute pulmonary emboli. LUNGS: There are no infiltrates nor evidence of pulmonary infarction.. There are no pleural effusions . MEDIASTINUM: There is no hilar nor mediastinal adenopathy. Visualized thyroid unremarkable. CARDIAC: Heart size is upper normal. There is no pericardial effusion.Caliber of the thoracic aorta is within normal limits. There is no significant shift of the interventricular septum. PARTIALLY VISUALIZED UPPERMOST ABDOMEN: Hepatic steatosis. Liver also appears. No adrenal. Spleen size upper OSSEOUS: No significant osseous lesions.. IMPRESSION: 1. No evidence of acute pulmonary emboli. No evidence of pulmonary infarction.No pleural effusions. 2. No confluent infiltrates. No intrathoracic adenopathy. 3. Hepatic steatosis and hepatomegaly incidentally noted. RADIATION DOSE DELIVERED: 519.71mGy.cm Total DLP DATA REPOSITORY: All CT scans at this facility are submitted to the National Radiology Data Registry (NRDR) Dose Index Registry (DIR) with the [employer] ([employer]). RADIATION OPTIMIZATION: All CT scans at this facility use at least one of these dose optimization te chniques: automated exposure control; mA and/or kV adjustment per patient size (includes targeted exa ms where dose is matched to clinical indication); or iterative reconstruction.
[2021-11-23] MEDS: Omnipaque 350 MG/ML 100 ML BTL 84 ML IJ (11:11)
== END 2021-11-23 13:04 ==
PROVIDERS: PCP Registered Nurse; Visit Provider Physician Assistant Medical
DX: R06.00 Dyspnea, unspecified (principal); K76.0 Fatty (change of) liver, not elsewhere classified; R16.0 Hepatomegaly, not elsewhere classified
CPT/HCPCS: 71275; J3490

== ENCOUNTER 2021-11-23 13:10 | Outpatient (REF) | payer MEDICAID, SELFPAY ==
[2021-11-23 12:51] LABS: Abs Immature Grans 0.05 10^3/uL (0.0-0.06); Absolute Basophil Count 0.09 10^3/uL (0.0-0.2); Absolute Eosinophil Count 0.27 10^3/uL (0.0-0.7); Absolute Lymphocyte Count 2.52 10^3/uL (1.2-3.4); Absolute Monocyte Count 0.66 10^3/uL (0.1-0.8); Absolute Neutrophil Count 7.15 10^3/uL (1.2-6.7); Basophils % 0.8; Eosinophils % 2.5; HCT 44.6 % (36.0-46.0); HGB 14.9 g/dL (11.2-15.7); Immature Grans % 0.5; Lymphocytes % 23.5; MCH 30.5 pg (27.0-33.0); MCHC 33.4 % (32.0-36.0); MCV 91.2 fL (80-95); MPV 10.9 fL (8.0-11.0); Monocytes % 6.1; Neutrophils % 66.6; Nucleated RBC 0 %; Platelet Count 304 10^3/uL (130-400); RBC 4.89 10^6/uL (3.93-5.22); RDW-SD 40.1 fL; WBC 10.74 10^3/uL (4.4-10.8)
[2021-11-23 13:05] LABS: ALT 70 U/L (14-59); AST 56 U/L (15-37); Alkaline Phosphatase 90 U/L (46-116); Anion Gap 10.2 mmol/L (3-11); BUN 13 mg/dL (7-18); Bilirubin, Total 0.5 mg/dL (0.2-1.0); CO2 23.8 mmol/L (21.0-32.0); CREATININE 0.9 mg/dL (0.55-1.02); Chloride 105 mmol/L (98-107); Glucose 142 mg/dL (74-106); Potassium 3.8 mmol/L (3.5-5.1); Sodium 139 mmol/L (136-145); Total Protein 7.7 g/dL (6.4-8.2)
== END 2021-11-23 13:11 | disposition home or self-care (01) ==
LOC: LBN 13:10
PROVIDERS: PCP Registered Nurse; Visit Provider Physician Assistant Medical
DX: R06.00 Dyspnea, unspecified (principal)
CPT/HCPCS: 80053; 85025

== ENCOUNTER 2021-11-26 02:29 | Emergency (ER) | payer MEDICAID, SELFPAY ==
[2021-11-26 02:36] VITALS: PULSE 118; RESP 18; TEMP 36.6; O2SAT 98
[2021-11-26] MEDS: Dexamethasone 10 MG/ML VIAL IM (03:03)
[2021-11-26] MEDS: diphenhydrAMINE 25 MG CAP 50 MG PO (03:03)
--- NOTE | 2021-11-26 03:03 | ED.GENADUL_ITS ---
Discharge Plan Disposition Patient Disposition: HOME Condition: Improving Discharge Details Chief Complaint: Allergic Clinical Impression: Rash, Allergic reaction Primary Care Provider: Georgie Stewart ED Provider: Lele Hope Home Meds and New Rx's Prescriptions: No Action buspirone 10 mg Tablet 20 mg PO BID 0RF montelukast 10 mg Tablet 10 mg PO DAILY 0RF albuterol sulfate [ProAir HFA] 90 mcg/actuation Hfa Aerosol Inhaler 2 puff INHALATION 6XD PRN0RF cholecalciferol (vitamin D3) [Vitamin D3] 10 mcg (400 unit) Tablet 10 mcg PO DAILY 0RF Flovent HFA 110 mcg/actuation Hfa Aerosol Inhaler 2 puff INHALATION BID 0RF lidocaine [Lidoderm] 1 PATCH patch 1 patch Topical Q24H Qty: 4 0RF meclizine 25 mg tablet 25 mg PO BID-TID Qty: 14 0RF Discharge Instructions Instructions: Acute Rash (ED), General Allergic Reaction (ED) Additional Instructions: Please continue with Benadryl at home as needed, return to the emergency department he develop worsening rash trouble breathing nausea vomiting or other abnormal symptoms. Please be seen by your regular doctor. Medical Decision Making 36-year-old female history of multiple allergies presents with urticarial rash to chest arms and abdomen in setting of taking Tessalon Perles. No respiratory stress tolerating secretions normal voice oropharynx unremarkable. Likely allergic reaction to medication versus environmental versus less likely iodinated contrast. No evidence of anaphylaxis. Trial of dexamethasone, Benadryl close reassessment likely home with home care instructions and return precautions 3: 59 patient feeling much better rash has dissipated. No respiratory symptoms. Patient counseled regarding home care and return precautions. HPI General Date/Time Provider Initiated Documentation: 11/26/21 02:31 . HPI Narrative: 36-year-old female history of multiple allergies, Covid to be in the month started on prednisone and Tessalon Perles, endorses developing a rash on her chest and her abdomen and some itching after taking the Tessalon Perles. Denies nausea vomiting or other systemic symptoms. Patient also had a CT scan 3 days ago with IV contrast. Related Data Home Medications Medication Instructions Recorded Confirmed albuterol sulfate 90 mcg/actuation 2 puff INHALATION 6XD PRN 03/24/20 11/26/21 aerosol inhaler (ProAir HFA) buspirone 10 mg tablet 20 mg PO BID 03/24/20 11/26/21 cholecalciferol (vitamin D3) 10 10 mcg PO DAILY 03/24/20 11/26/21 mcg (400 unit) tablet (Vitamin D3) fluticasone propionate 110 2 puff INHALATION BID 03/24/20 11/26/21 mcg/actuation HFA aerosol inhaler (Flovent HFA) lidocaine 5 % topical patch 1 patch TOPICAL Q24H #4 patch 03/24/20 03/31/21 (Lidoderm) montelukast 10 mg tablet 10 mg PO DAILY 03/24/20 11/26/21 meclizine 25 mg tablet 25 mg PO BID-TID #14 tab 03/31/21 Previous Rx's Medication Instructions Recorded lidocaine 5 % topical patch 1 patch TOPICAL Q24H #4 patch 03/24/20 (Lidoderm) meclizine 25 mg tablet 25 mg PO BID-TID #14 tab 03/31/21 Allergies Allergy/AdvReac Type Severity Reaction Status Date / Time acetaminophen [From Tylox] Allergy Unverified 03/31/21 10:47 codeine Allergy Unverified 03/31/21 10:47 latex Allergy Unverified 03/31/21 10:47 orange Allergy Unverified 03/31/21 10:47 oxycodone [From Tylox] Allergy Unverified 03/31/21 10:47 Sulfa (Sulfonamide Allergy Unverified 03/31/21 10:47 Antibiotics) General Stated Complaint: Allergic MICHA: 4 Review of Systems Narrative: Review of Systems Constitutional: negative Eyes: negative ENT: negative Cardiovascular: negative Respiratory: negative Gastrointestinal: negative : negative Musculoskeletal: negative Skin: Rash Neurologic: negative Psych: negative PFSH All Active Problems (Updated 11/26/21 @ 04:00 by Lele Hope MD) Dizziness (Acute) Acute pain of right hip (Acute) Rash (Acute) Allergic reaction (Acute) Social History Smoking/Tobacco Use Status: Never Smoking risk assessment performed?: Yes Alcohol Intake: never Drug use: Never Substance use type: does not use Do you feel safe at home: Yes Do you feel safe in your relationship?: Yes Exam Narrative Exam Narrative: Physical Examination General: alert, awake, cooperative, resting comfortably, no acute distress HEENT: normocephalic, atraumatic; PERRL, EOM intact, conjunctiva normal; no nasal discharge; moist mucous membranes, oral and pharyngeal mucosa normal, tolerating secretions; normal voice Neck: supple, trachea midline; full ROM Chest: normal to inspection Respiratory: normal respiratory effort, speaking in full sentences, clear to auscultation, no wheezing, rales or rhonchi Cardiac: regular rate, regular rhythm, S1S2 intact, no murmurs rubs or gallops GI: abdomen soft, non-tender, non-distended; no palpable mass or hepatosplenomegaly Skin: Urticarial rash to chest arms and lower abdomen Neuro: AAOx3, normal speech, moving all extremities Psych: Appropriate mood and affect Course Vital Signs Vital signs: Vital Signs Temperature 36.6 C 11/26/21 02:36 Pulse 118 H 11/26/21 02:36 Respiratory Rate 18 11/26/21 02:36 Pulse Oximetry 98 11/26/21 02:36 Temperature 36.6 C 11/26/21 02:36 Pulse 118 H 11/26/21 02:36 Respiratory Rate 18 11/26/21 02:36 Respiratory Effort 11/26/21 02:40 Respiratory Pattern Normal 11/26/21 02:40 Pulse Oximetry 98 11/26/21 02:36 Oxygen Delivery Method Room Air 11/26/21 02:36 Oxygen Flow Rate 0 11/26/21 02:36 Pain Level 0 11/26/21 02:36
== END 2021-11-26 04:03 | disposition home or self-care (01) ==
PROVIDERS: Emergency Provider Emergency Medicine; PCP Registered Nurse
DX: R21 Rash and other nonspecific skin eruption (principal); L50.9 Urticaria, unspecified; T48.3X5A Adverse effect of antitussives, initial encounter
CPT/HCPCS: 96372; 99284; 99283; J1100

== ENCOUNTER 2021-12-01 07:57 | Emergency (ER) | payer MEDICAID, SELFPAY ==
[2021-12-01] VITALS (7 sets, daily range): BP systolic 145–200; BP diastolic 88–131; PULSE 86–111; RESP 16–25; TEMP 36.6–36.7; O2SAT 94–99
--- NOTE | 2021-12-01 08:00 | RT.EKG_ITS ---
APPROVED REPORT Exam: Resting ECG Reason for Exam: Numbness Patient Location: E HR:83 bpm ECG Measurements Heart Rate 83 AXIS FL 144 P 46 QRSd 98 QRS -19 QT 384 T 29 QTc 453 Conclusion Sinus rhythm...normal P axis, V-rate 60- 99. Sinus. No STEMI. No change from previous EKG. I have reviewed and interpreted ECG and agree with software generated interpretation.
--- NOTE | 2021-12-01 08:15 | DI.CT_ITS ---
Exam(s) CT BRAIN NECK CTA EXAM: CT BRAIN NECK CTA CLINICAL HISTORY: Left sided weakness, Headache felt a pop. TECHNIQUE: Imaging Protocol: Axial CT angiography was performed with multi-slice acquisition and mu lti-planar and/or 3D reconstructions. CONTRAST MATERIAL: Intravenous: Omnipaque 350 Contrast volume:structured data in ml COMPARISON: CT CT CHEST PE CTA from 11/23/2021 FINDINGS: CT Head W/O and W contrast: Ventricles and Extra axial spaces: Normal in size and morphology for the patient's age. Hemorrhage: None. Cerebral parenchyma: Normal. Midline shift: None. Brainstem/Cerebellum: Normal. Calvarium: Normal. Visualized Paranasal sinuses/Mastoids: Mucous retention within the sphenoid sinuses bilaterally. Soft Tissues: Unremarkable. Enhancement: Normal. CTA Brain W: Internal Carotid Arteries: Petrous: Normal. Cavernous: Normal. Cerebral: Normal. Middle Cerebral Arteries: Right: No aneurysm, occlusion or significant stenosis. Left: No aneurysm, occlusion or significant stenosis. Anterior Cerebral Arteries: Right: No aneurysm, occlusion or significant stenosis. Left: No aneurysm, occlusion or significant stenosis. Posterior cerebral Arteries: Right: No aneurysm, occlusion or significant stenosis. Left: No aneurysm, occlusion or significant stenosis. Vertebral Arteries: Right: No aneurysm, occlusion or significant stenosis. Left: No aneurysm, occlusion or significant stenosis. Basilar Artery: No aneurysm, occlusion or significant stenosis. CTA Neck W: Common Carotid: Right: No aneurysm, occlusion or significant stenosis. Left: No aneurysm, occlusion or significant stenosis. External Carotid: Right: No aneurysm, occlusion or significant stenosis. Left: No aneurysm, occlusion or significant stenosis. Internal Carotid: Right: No aneurysm, occlusion or significant stenosis. Left: No aneurysm, occlusion or significant stenosis. Vertebral Artery: Right: No aneurysm, occlusion or significant stenosis. Left: No aneurysm, occlusion or significant stenosis. Lung Apices: Normal. Respiratory motion. Bones: Normal. Soft Tissues: Normal. IMPRESSION: 1. Normal CTA examination of the [place]. 2. Head CT: Sphenoid sinus mucous retention, otherwise negative. 3. Normal CTA examination of the neck. 4. Results of this exam have been verbally communicated with emergency department provider. RADIATION DOSE DELIVERED: 2,106.63mGy.cm Total DLP DATA REPOSITORY: All CT scans at this facility are submitted to the National Radiology Data Registry (NRDR) Dose Index Registry (DIR) with the [employer] ([employer]). RADIATION OPTIMIZATION: All CT scans at this facility use at least one of these dose optimization te chniques: automated exposure control; mA and/or kV adjustment per patient size (includes targeted exa ms where dose is matched to clinical indication); or iterative reconstruction.
--- NOTE | 2021-12-01 08:24 | ED.GENADUL_ITS ---
Discharge Plan Disposition Patient Disposition: HOME Condition: Improving Discharge Details Clinical Impression: Sinusitis, Multiple complaints Primary Care Provider: Georgie Stewart ED Provider: Una Singh Home Meds and New Rx's Prescriptions: New cephalexin 500 mg tablet 500 mg PO BID 7 Days Qty: 14 0RF Continued buspirone 10 mg Tablet 20 mg PO BID 0RF montelukast 10 mg Tablet 10 mg PO DAILY 0RF albuterol sulfate [ProAir HFA] 90 mcg/actuation Hfa Aerosol Inhaler 2 puff INHALATION 6XD PRN0RF cholecalciferol (vitamin D3) [Vitamin D3] 10 mcg (400 unit) Tablet 10 mcg PO DAILY 0RF Flovent HFA 110 mcg/actuation Hfa Aerosol Inhaler 2 puff INHALATION BID 0RF meclizine 25 mg tablet 25 mg PO BID-TID Qty: 14 0RF Discharge Instructions Instructions: Sinusitis (ED) Additional Instructions: At this time there is no evidence for a stroke or any intracranial abnormality. Chest x-ray was also within normal limits. I do suspect that this is related to your recent Covid infection and sinusitis which is inflammation and infection of the fluid in her sinus cavities. Please take the medications as directed. Take with food. Eat yogurt while on the antibiotic. You may also try Flonase nasal spray which she can get [id number] 1 spray in each nostril twice daily. Follow up with primary care provider in 3-5 days. Return to ED sooner if any worsening or concerns. Increase oral fluids. Please take Tylenol or Ibuprofen with food every 4-6 hours as needed for pain and swelling. Referrals: Georgie Stewart, AP[facility] [Primary Care Provider] - 3 days Medical Decision Making 36-year-old female presents to the ER with chief complaint of dizziness, shakiness and awaking this morning with a left-sided headache. She then reports that the left side of her face began numb and tingly which radiated into her left arm. She is alert and oriented x3 speaking in full sentences. No one- sided facial droop noted no slurred speech noted. She also reports that she felt a pop. Other associate symptoms include left ear pain and left lower quadrant abdominal pain. She states that this began after getting out of the shower this morning. She was recently seen here 5 days ago for an allergic reaction to steroid. She was diagnosed with Covid on November 06. She does present slightly tachycardic and hypertensive with a blood pressure of 189/98. Past medical history includes COVID-19, she denies any drugs or alcohol not smoke. At this time work-up ordered including CBC, CMP, PT INR, troponin, EKG, finger stick glucose by entry level staff accountant 92. CTA brain and neck ordered with CT without contrast to be done first. Differential diagnosis includes but not limited to CVA, cluster headache, anxiety, thyroid abnormalities. EKG was reviewed by Dr. Xiomy Dasilva ER attending, old EKG available for review. Please see her official report and review. No appreciable changes noted by me. 0911: Patient ambulate with minimal assistance to the bathroom and back to the room. CT result shows mucous retention within the sphenoid sinuses bilaterally. No other abnormality noted. 0931: Dr. Dasilva ER attending at bedside for patient evaluation. She recommends migraine cocktail, MRI without to rule out any intracranial abnormality due to patient's continued complaint of numbness to her left side. Patient's blood pressure has improved upon returning from CT 134/97. Normal saline 1 L, Toradol, 4 mg dexamethasone, Compazine Benadryl IV ordered. MRI brain without contrast ordered. Discussed plan of care with patient who verbalizes understanding. 1021: Blood pressure has improved 137/79 heart rate 81, O2 sat 95% room air. 1234: MRI brain unremarkable. Discussed results with patient. She verbalized understanding. Will place patient on Augmentin for possible sinusitis. After patient discharged informed by entry level staff accountant that patient states that she is allergic to Augmentin however this is not on her list. I counseled the Augmentin and gave her cephalexin which believes she may have taken in the past. Directed to follow-up with PCP regarding further care. Verbalized understanding. This text was generated using [employer] dictation system, please disregard any oddities of phrase or misspellings. Medical Records Medical records reviewed: Yes I reviewed the patient's medical records. Medical records narrative: I have seen and examined this patient. I discussed case and reviewed note with Una Singh and I agree with plan and note as documented. Patient is a 36-year-old female with a history of fibromyalgia who presents for left-sided facial numbness since last night with headache and left arm numbness this morning. She also states this morning she felt a pop in her left ear and left side of her chest. She is now mainly complaining of headache, dizziness which feels like a vertigo sensation, and also with pain in the left side of her head and face. She was diagnosed with COVID in early November. She was seen here a few days ago for allergic reaction to Tessalon Perles. Patient appears quite tearful on exam and appears to have facial pain when checking cranial nerves. She otherwise has no focal deficits on exam. Her blood pressure was 189/90 on arrival and is now 145/92. A CTA head and neck was obtained and notes sinus disease otherwise no acute CVA. Discussed with patient at length that her sy mptoms could be post Covid, acute viral syndrome, sinusitis, BPPV in the setting of labyrinthitis. Discussed that her presentation does not appear consistent with acute CVA, but considering her left arm and facial numbness, will obtain MRI brain without contrast. HPI General Mode of arrival: ambulatory . Date/Time Provider Initiated Documentation: 12/01/21 08:05 . Limitations to Documentation: no limitations . Information obtained by: patient, family, RN notes reviewed and old records reviewed . HPI Narrative: 36-year-old female presents to the ER with chief complaint of dizziness, shakiness and awaking this morning with a left-sided headache. She then reports that the left side of her face began numb and tingly which radiated into her left arm. She is alert and oriented x3 speaking in full sentences. No one- sided facial droop noted no slurred speech noted. She also reports that she felt a pop. Other associate symptoms include left ear pain and left lower quadrant abdominal pain. She states that this began after getting out of the shower this morning. She was recently seen here 5 days ago for an allergic reaction to steroid. She was diagnosed with Covid on November 06. She does present slightly tachycardic and hypertensive with a blood pressure of 189/98. Past medical history includes COVID-19, hysterectomy, fibromyalgia, she denies any drugs or alcohol not smoke. Related Data Home Medications Medication Instructions Recorded Confirmed albuterol sulfate 90 mcg/actuation 2 puff INHALATION 6XD PRN 03/24/20 12/01/21 aerosol inhaler (ProAir HFA) buspirone 10 mg tablet 20 mg PO BID 03/24/20 12/01/21 cholecalciferol (vitamin D3) 10 10 mcg PO DAILY 03/24/20 12/01/21 mcg (400 unit) tablet (Vitamin D3) fluticasone propionate 110 2 puff INHALATION BID 03/24/20 12/01/21 mcg/actuation HFA aerosol inhaler (Flovent HFA) montelukast 10 mg tablet 10 mg PO DAILY 03/24/20 12/01/21 meclizine 25 mg tablet 25 mg PO BID-TID #14 tab 03/31/21 12/01/21 cephalexin 500 mg tablet 500 mg PO BID 7 Days #14 tab 12/01/21 Previous Rx's Medication Instructions Recorded meclizine 25 mg tablet 25 mg PO BID-TID #14 tab 03/31/21 cephalexin 500 mg tablet 500 mg PO BID 7 Days #14 tab 12/01/21 Allergies Allergy/AdvReac Type Severity Reaction Status Date / Time ciprofloxacin Allergy Unknown Unverified 12/01/21 16:30 acetaminophen [From Tylox] Allergy Unverified 12/01/21 08:14 codeine Allergy Unverified 12/01/21 08:14 latex Allergy Unverified 12/01/21 08:14 orange Allergy Unverified 12/01/21 08:14 oxycodone [From Tylox] Allergy Unverified 12/01/21 08:14 Sulfa (Sulfonamide Allergy Unverified 12/01/21 08:14 Antibiotics) General Stated Complaint: CVA/TIA MICHA: 2 Review of Systems All systems reviewed & are unremarkable except as noted in HPI and below Constitutional Constitutional: Reports as per HPI and Reports headache(s) Eyes Eyes: Denies loss of vision ENT Ears, Nose, Mouth, and Throat: Reports dizziness and Reports headache(s) Cardiovascular Cardiovascular: Reports as per HPI and Denies dyspnea Respiratory Respiratory: Reports as per HPI and Denies dyspnea Gastrointestinal Gastrointestinal: Denies diarrhea, Denies nausea and Denies vomiting Genitourinary Genitourinary: Denies dysuria Musculoskeletal Musculoskeletal: Reports numbness and Reports tingling Neurologic Neurologic: Reports as per HPI, Denies abnormal speech, Reports dizziness, Reports headache(s), Reports localized weakness, Denies loss of vision, Reports numbness and Reports tingling PFSH All Active Problems (Updated 03/31/22 @ 12:38 by Una Singh) Dizziness (Acute) Acute pain of right hip (Acute) Rash (Acute) Allergic reaction (Acute) Sinusitis (Acute) Multiple complaints (Acute) Social History Smoking/Tobacco Use Status: Never Smoking risk assessment performed?: Yes Alcohol Intake: never Drug use: Never Substance use type: does not use Do you feel safe at home: Yes Do you feel safe in your relationship?: Yes Exam Narrative Exam Narrative: Constitutional: Alert and oriented x3. Appears stated age. Normal body habitus. Head: Normocephalic, no trauma. Eyes: Pupils PERRL, 3-4mm bilaterally, brisk reflex, , EOM's intact, no nystagmus Eyelids symmetrical without lesions, discharge, or swelling. ENT: Bilateral TM's WNL, External ear normal to inspection, no mastoid TTP, swelling, or erythema, Nasal turbinates WNL, no nasal discharge. Normal dentition, Posterior pharynx WNL, no exudate. Chest: RRR, Normal S1, S2, distal pulses intact. Resp: Lungs clear to auscultation bilaterally, no wheezes, rales, or rhonchi. Abdomen: Soft, non-distended, Normoactive bowel sounds all 4 quads. Musculoskeletal: Normal gait, 5/5 strength to all four extremities. Skin: No suspicious rashes or lesions. Capillary refill less than 2 sec. Neurologic: Cranial nerves II-XII intact. Alert and oriented x 3. No facial droop, no pronator drift, intact dorsal pedal flexion and extension, no focal neuro deficits noted. Sensory: Intact bilaterally all 4 extremities. Reports pain on facial exam. Reports pain in her abdomen when raising her left leg. Hematologic/Lymphatic: No ecchymosis, no lymphadenopathy. Course Vital Signs Vital signs: Vital Signs Temperature 36.7 C 12/01/21 08:07 Pulse 111 H 12/01/21 08:07 Respiratory Rate 16 12/01/21 08:07 Blood Pressure 189/98 H 12/01/21 08:07 Pulse Oximetry 99 12/01/21 08:07 Temperature 36.7 C 12/01/21 08:07 Temperature Source Temporal Artery Scan 12/01/21 08:07 Pulse 111 H 12/01/21 08:07 Respiratory Rate 16 12/01/21 08:07 Respiratory Effort Non-Labored 12/01/21 08:12 Blood Pressure 189/98 H 12/01/21 08:07 Blood Pressure Position Supine 12/01/21 08:07 Pulse Oximetry 99 12/01/21 08:07 Oxygen Delivery Method Room Air 12/01/21 08:07 Oxygen Flow Rate 0 12/01/21 08:07 Pain Level 8 12/01/21 08:07
[2021-12-01 08:28] LABS: Abs Immature Grans 0.09 10^3/uL (0.0-0.06); Absolute Eosinophil Count 0.25 10^3/uL (0.0-0.7); Absolute Monocyte Count 0.87 10^3/uL (0.1-0.8); Basophils % 0.7; Eosinophils % 2.1; HCT 44.8 % (36.0-46.0); HGB 14.6 g/dL (11.2-15.7); Immature Grans % 0.7; Lymphocytes % 28.3; MCH 29.6 pg (27.0-33.0); MCHC 32.6 % (32.0-36.0); MCV 90.9 fL (80-95); MPV 9.7 fL (8.0-11.0); Monocytes % 7.2; Nucleated RBC 0 %; Platelet Count 320 10^3/uL (130-400); RBC 4.93 10^6/uL (3.93-5.22); RDW 12.1 % (11.7-14.6); RDW-SD 40.1 fL
[2021-12-01 08:30] LABS: Absolute Basophil Count 0.08 10^3/uL (0.0-0.2); Absolute Lymphocyte Count 3.42 10^3/uL (1.2-3.4); Absolute Neutrophil Count 7.38 10^3/uL (1.2-6.7)
[2021-12-01 08:39] LABS: Prothrombin Time 9.9 sec (9.3-11.0)
[2021-12-01] MEDS: Omnipaque 350 MG/ML 100 ML BTL IV (08:44)
[2021-12-01 08:54] LABS: ALT 73 U/L (14-59); AST 43 U/L (15-37); Albumin 3.5 g/dL (3.4-5.0); Alkaline Phosphatase 84 U/L (46-116); Anion Gap 10.4 mmol/L (3-11); BUN 13 mg/dL (7-18); Bilirubin, Total 0.4 mg/dL (0.2-1.0); CO2 25.6 mmol/L (21.0-32.0); CREATININE 0.9 mg/dL (0.55-1.02); Calcium 8.6 mg/dL (8.5-10.1); Chloride 103 mmol/L (98-107); Glucose 96 mg/dL (74-106); Magnesium 1.8 mg/dL (1.8-2.4); Potassium 3.6 mmol/L (3.5-5.1); Sodium 139 mmol/L (136-145); TSH (W/Ref FT4) 2.55 uIU/mL (0.36-3.74); Total Protein 7.5 g/dL (6.4-8.2); Troponin I < 50 ng/L (<or=60)
--- NOTE | 2021-12-01 09:15 | DI.MRI_ITS ---
Exam(s) MR BRAIN WO EXAM: MR BRAIN WO CLINICAL HISTORY: Left side numbness. TECHNIQUE: Multiplanar multisequence MRI of the brain was performed. CONTRAST MATERIAL: IV Contrast: ML of Dotarem contrast administered. COMPARISON: CT CT BRAIN NECK CTA from 12/01/2021 FINDINGS: VENTRICLES AND EXTRA AXIAL SPACES: Frontal atrophy. Ventricles normal in size and morphology for the patient's age. HEMORRHAGE: None. CEREBRAL PARENCHYMA: Normal [place]/white matter differentiation no focus of restricted diffusion to sug gest acute infarct. No space-occupying lesion identified. No abnormal high signal lesions in the whi te matter. MIDLINE SHIFT: None. BRAINSTEM/CEREBELLUM: Normal. CALVARIUM: Normal. ENHANCEMENT: No suspicious enhancement identified. VISUALIZED PARANASAL SINUSES: Opacification of sphenoid sinuses MASTOIDS: Clear. OTHER FINDINGS: None. IMPRESSION: Unremarkable MRI of the brain. DATA REPOSITORY:
[2021-12-01 09:16] LABS: Bilirubin Negative (Negative); Blood Negative (Negative); Clarity Clear (Clear); Glucose Negative (Negative); Ketones Negative (Negative); Leukocyte Esterase Negative (Negative); Nitrite Negative (Negative); Urobilinogen 0.2 EU/dL (Up TO 0.2); pH 7.5 (5-8)
--- NOTE | 2021-12-01 09:41 | DI.RAD_ITS ---
Exam(s) XR CHEST 1V IN DI DEPT EXAM: XR CHEST 1V IN DI DEPT CLINICAL HISTORY: HX Covid, Left chest discomfort TECHNIQUE: 2D digital imaging was performed. COMPARISON: CT CT CHEST PE CTA from 11/23/2021 FINDINGS: LUNGS: Clear. No pleural abnormality seen. HEART: Normal. MEDIASTINUM: Normal. BONES: Unremarkable. IMPRESSION: No acute pulmonary findings. DATA REPOSITORY: RADIATION DOSE DELIVERED:
[2021-12-01] MEDS: Normal Saline Flush 10 ML SYR IVP (09:49)
[2021-12-01] MEDS: Normal Saline 1,000 ML 1000 ML IV (09:49)
[2021-12-01] MEDS: Ketorolac 15 MG/ML VIAL IVP (09:50)
[2021-12-01] MEDS: Prochlorperazine 10 MG/2 ML VIAL 5 MG IVP (09:50)
[2021-12-01] MEDS: diphenhydrAMINE 50 MG/ML VIAL 25 MG IVP (09:50)
[2021-12-01] MEDS: Dexamethasone 4 MG/ML VIAL IVP (09:51)
== END 2021-12-01 13:37 | disposition home or self-care (01) ==
PROVIDERS: Emergency Provider Registered Nurse Emergency; PCP Registered Nurse
DX: J32.9 Chronic sinusitis, unspecified (principal); Z86.16 Personal history of COVID-19; R42 Dizziness and giddiness; I10 Essential (primary) hypertension; R20.0 Anesthesia of skin; R00.0 Tachycardia, unspecified; H92.02 Otalgia, left ear; R10.32 Left lower quadrant pain; R51.9 Headache, unspecified
CPT/HCPCS: 36415; 36416; 70496; 70498; 80053; 82962; 93005; 96361; 96374; 96375; 99285; 70551; 71045; 81003; 83735; 84443; 84484; 85025; 85610; 93010; J0780; J1100; J1200; J1885; J3490

== ENCOUNTER 2021-12-27 05:39 | Outpatient (CLI) | payer MEDICAID, SELFPAY ==
[2021-12-27 12:51] LABS: Anion Gap 6.9 mmol/L (3-11); BUN 11 mg/dL (7-18); CO2 26.1 mmol/L (21.0-32.0); CREATININE 0.9 mg/dL (0.55-1.02); Calcium 8.7 mg/dL (8.5-10.1); Chloride 104 mmol/L (98-107); Glucose 88 mg/dL (74-106); Potassium 3.8 mmol/L (3.5-5.1); Sodium 137 mmol/L (136-145)
== END 2021-12-27 05:40 | disposition home or self-care (01) ==
LOC: LBO 05:40
PROVIDERS: PCP Registered Nurse; Visit Provider Registered Nurse
DX: I10 Essential (primary) hypertension (principal)
CPT/HCPCS: 36415; 80048

== ENCOUNTER 2022-03-01 19:10 | Emergency (ER) | payer MEDICAID, SELFPAY ==
[2022-03-01] VITALS (22 sets, daily range): BP systolic 139–158; BP diastolic 67–92; PULSE 68–85; RESP 16–29; TEMP 37.1; O2SAT 93–98
--- NOTE | 2022-03-01 19:00 | RT.EKG_ITS ---
APPROVED REPORT Exam: Resting ECG Reason for Exam: chest pain Patient Location: E HR:79 bpm ECG Measurements Heart Rate 79 AXIS ND 146 P 54 QRSd 106 QRS 3 QT 397 T 32 QTc 455 Conclusion Sinus rhythm...normal P axis, V-rate 60- 99 sinus rhtym, normal intervals, III and aVF largely unchanged from prior
--- NOTE | 2022-03-01 19:45 | DI.RAD_ITS ---
Exam(s) XR PORTABLE CHEST AP EXAM: XR PORTABLE CHEST AP CLINICAL HISTORY: right sided check pain TECHNIQUE: 2D digital imaging was performed of the chest. One image was obtained. An AP view was ob tained. COMPARISON: CR XR CHEST 1V IN DI DEPT from 12/01/2021 FINDINGS: Low lung volumes. MEDIASTINUM: Normal. HEART: Normal. PULMONARY VASCULATURE: Normal. LUNGS: Clear. PLEURAL SPACE: No pleural effusion or pneumothorax. BONE:Within normal limits for the patient's age. OTHER FINDINGS:Normal. IMPRESSION: No acute pulmonary findings. DATA REPOSITORY: RADIATION DOSE DELIVERED:
--- NOTE | 2022-03-01 20:07 | ED.GENADUL_ITS ---
Discharge Plan Disposition Patient Disposition: HOME Condition: Improving Discharge Details Chief Complaint: Chest Pain Clinical Impression: Chest pain Primary Care Provider: Georgie Stewart ED Provider: Lele Hope Home Meds and New Rx's Prescriptions: No Action magnesium oxide 500 mg capsule 500 mg PO QHS Qty: 90 3RF buspirone 10 mg Tablet 20 mg PO BID montelukast 10 mg Tablet 10 mg PO DAILY albuterol sulfate [ProAir HFA] 90 mcg/actuation Hfa Aerosol Inhaler 2 puff INHALATION 6XD PRN cholecalciferol (vitamin D3) [Vitamin D3] 10 mcg (400 unit) Tablet 10 mcg PO DAILY fluticasone propionate [Flovent HFA] 110 mcg/actuation Hfa Aerosol Inhaler 2 puff INHALATION BID Discharge Instructions Instructions: Chest Pain (ED) Additional Instructions: Please follow-up for official ultrasound tomorrow morning. Please return to the emergency part if you develop worsening symptoms such as chest pain shortness of breath swelling or other abnormal symptomatology. Otherwise follow with your primary physician Medical Decision Making 36-year-old female history of fibromyalgia presents with right anterior sharp chest pain brief in nature nonexertional but started approximately 3 to 4 hours ago, no respiratory distress hemodynamically stable, no peripheral edema lungs clear bilaterally, no hypoxia or tachycardia patient is PERC negative, patient is low risk heart score, EKG showing Q waves in the 3 flattening of T waves in 3 and aVF low voltage T waves in anterior lateral leads normal sinus rhythm, pain in bilateral lower extremities. Has acute on chronic in relation to fibromyalgia, low suspicion for DVT or PE, less likely ACS, more likely anxiety or musculoskeletal chest pain consider costochondritis versus pleurisy, lower suspicion for PE or pneumonia. Will obtain labs imaging will perform bedside ultrasound of left lower extremity as this leg was swollen yesterday per patient. Trial of Toradol close reassessment likely home with close follow-up. 21: 31 patient resting comfortably no acute distress labs and imaging unremarkable. Bedside ultrasound negative for DVT. Patient be given follow-up for official ultrasound tomorrow morning in radiology. Low suspicion for ACS PE or DVT. Likely musculoskeletal discomfort in nature as patient is feeling better after Toradol. Home care instructions and return precautions given. HPI General Date/Time Provider Initiated Documentation: 03/01/22 19:13 . HPI Narrative: 36-year-old female history of allergies presents with right anterior chest discomfort that began at rest, sharp in nature bruits, no nausea vomiting diaphoresis, patient endorses chronic fibromyalgia pain in bilateral lower extremities believe that her left lower extremity was more swollen yesterday however is not swollen currently. Denies fevers or chills. Denies history of cardiac disease PE blood clot or exogenous estrogen use. Related Data Home Medications Medication Instructions Recorded Confirmed albuterol sulfate 90 mcg/actuation 2 puff inhalation 6XD PRN 03/24/20 03/01/22 aerosol inhaler (ProAir HFA) buspirone 10 mg tablet 20 mg PO BID 03/24/20 03/01/22 cholecalciferol (vitamin D3) 10 10 mcg PO DAILY 03/24/20 03/01/22 mcg (400 unit) tablet (Vitamin D3) fluticasone propionate 110 2 puff inhalation BID 03/24/20 03/01/22 mcg/actuation HFA aerosol inhaler (Flovent HFA) montelukast 10 mg tablet 10 mg PO DAILY 03/24/20 03/01/22 magnesium oxide 500 mg capsule 500 mg PO QHS #90 caps 02/22/22 03/01/22 Previous Rx's Medication Instructions Recorded magnesium oxide 500 mg capsule 500 mg PO QHS #90 caps 02/22/22 Allergies Allergy/AdvReac Type Severity Reaction Status Date / Time aspirin Allergy Unknown Verified 03/01/22 19:27 ciprofloxacin Allergy Unknown Unverified 03/01/22 19:27 grape Allergy Unknown Verified 03/01/22 19:27 losartan Allergy Unknown Verified 03/01/22 19:27 nickel Allergy Unknown Verified 03/01/22 19:27 Penicillins Allergy Unknown Verified 03/01/22 19:27 potassium Allergy Unknown Verified 03/01/22 19:27 acetaminophen [From Tylox] Allergy Unverified 03/01/22 19:27 codeine Allergy Unverified 03/01/22 19:27 latex Allergy Unverified 03/01/22 19:27 orange Allergy Unverified 03/01/22 19:27 oxycodone [From Tylox] Allergy Unverified 03/01/22 19:27 Sulfa (Sulfonamide Allergy Unverified 03/01/22 19:27 Antibiotics) lysol Allergy Unknown Uncoded 03/01/22 19:27 turnips Allergy Unknown Uncoded 03/01/22 19:27 General Stated Complaint: Chest Pain MICHA: 3 Review of Systems Narrative: Review of Systems Constitutional: negative Eyes: negative ENT: negative Cardiovascular: Chest pain Respiratory: negative Gastrointestinal: negative : negative Musculoskeletal: Leg pain, leg swelling Skin: negative Neurologic: negative Psych: negative PFSH All Active Problems (Updated 03/01/22 @ 21:32 by Lele Hope MD) Chest pain (Acute) Atypical migraine (Acute) Frequent headaches (Acute) Dizziness (Acute) Acute pain of right hip (Acute) Medical History (Updated 03/01/22 @ 21:32 by Lele Hope MD) Anxiety Arm numbness Asthma Chronic back pain Depression Fibromyalgia Hx of migraines Hypertension Numbness and tingling of left side of face PTSD (post-traumatic stress disorder) Vertigo Social History Smoking/Tobacco Use Status: Never Smoking risk assessment performed?: Yes Alcohol Intake: never Drug use: Never Substance use type: does not use Do you feel safe at home: Yes Do you feel safe in your relationship?: Yes Exam Narrative Exam Narrative: Physical Examination General: alert, awake, cooperative, resting comfortably, no acute distress HEENT: normocephalic, atraumatic; PERRL, EOM intact, conjunctiva normal; no nasal discharge; moist mucous membranes, oral and pharyngeal mucosa normal, tolerating secretions Neck: supple, trachea midline; full ROM Chest: normal to inspection Respiratory: normal respiratory effort, speaking in full sentences, clear to auscultation, no wheezing, rales or rhonchi Cardiac: regular rate, regular rhythm, S1S2 intact, no murmurs rubs or gallops GI: abdomen soft, non-tender, non-distended; no palpable mass or hepatosp lenomegaly Skin: no lesions, rashes or trauma appreciated Neuro: AAOx3, normal speech, moving all extremities Extremities: No edema in the bilateral lower extremities Psych: Appropriate mood and affect Course Vital Signs Vital signs: Vital Signs Temperature 37.1 C 03/01/22 19:10 Pulse 76 03/01/22 19:10 Respiratory Rate 16 03/01/22 19:10 Blood Pressure 152/80 H 03/01/22 19:10 Pulse Oximetry 97 03/01/22 19:10 Temperature 37.1 C 03/01/22 19:10 Temperature Source Skin 03/01/22 19:10 Pulse 76 03/01/22 19:10 Respiratory Rate 16 03/01/22 19:10 Respiratory Effort Non-Labored 03/01/22 19:28 Respiratory Depth Normal 03/01/22 19:28 Respiratory Pattern Normal 03/01/22 19:28 Blood Pressure 152/80 H 03/01/22 19:10 Pulse Oximetry 97 03/01/22 19:10 Pain Level 8 03/01/22 19:10
[2022-03-01 20:09] LABS: Abs Immature Grans 0.02 10^3/uL (0.0-0.06); Absolute Basophil Count 0.04 10^3/uL (0.0-0.2); Absolute Eosinophil Count 0.23 10^3/uL (0.0-0.7); Absolute Lymphocyte Count 2.68 10^3/uL (1.2-3.4); Absolute Monocyte Count 0.62 10^3/uL (0.1-0.8); Basophils % 0.5; Eosinophils % 3.1; HCT 40.2 % (36.0-46.0); HGB 13.9 g/dL (11.2-15.7); Immature Grans % 0.3; Lymphocytes % 36.3; MCH 30.8 pg (27.0-33.0); MCHC 34.6 % (32.0-36.0); MCV 89 fL (80-95); MPV 10.5 fL (8.0-11.0); Monocytes % 8.4; Neutrophils % 51.4; Platelet Count 244 10^3/uL (130-400); RBC 4.51 10^6/uL (3.93-5.22); RDW 11.9 % (11.7-14.6); RDW-SD 38.7 fL; WBC 7.39 10^3/uL (4.4-10.8)
[2022-03-01] MEDS: Ketorolac 15 MG/ML VIAL IVP (20:29)
--- NOTE | 2022-03-01 20:35 | DI.VRAD_ITS ---
PROCEDURE INFORMATION: Exam: XR Chest Exam date and time: 03/01/2022 19:51 Age: 36 years old Clinical indication: Pain; Right-sided; Additional info: Right sided chest pain TECHNIQUE: Imaging protocol: Radiologic exam of the chest. Views: 1 view. COMPARISON: CR XR CHEST 1V IN DI DEPT 12/01/2021 11:22 FINDINGS: Lungs: Very low lung volumes with vascular and interstitial crowding. Pleural spaces: No pleural effusion. No pneumothorax. Heart/Mediastinum: No significant cardiomegaly for position and projection. Bones/joints: No acute fracture. IMPRESSION: Very low lung volumes with vascular and interstitial crowding. Dictated and Authenticated by: Grisel Yates MD. Ordering:RONNELL Royal MD
[2022-03-01 20:41] LABS: ALT 58 U/L (14-59); AST 30 U/L (15-37); Albumin 3.3 g/dL (3.4-5.0); Alkaline Phosphatase 81 U/L (46-116); Anion Gap 9.5 mmol/L (3-11); BUN 15 mg/dL (7-18); Bilirubin, Total 0.3 mg/dL (0.2-1.0); CO2 24.5 mmol/L (21.0-32.0); Calcium 8.7 mg/dL (8.5-10.1); Chloride 105 mmol/L (98-107); Glucose 167 mg/dL (74-106); Sodium 139 mmol/L (136-145); Total Protein 6.6 g/dL (6.4-8.2); Troponin I < 50 ng/L (<or=60)
== END 2022-03-01 21:49 | disposition home or self-care (01) ==
LOC: ER 21:52
PROVIDERS: Emergency Provider Emergency Medicine; PCP Registered Nurse
DX: R07.9 Chest pain, unspecified (principal)
CPT/HCPCS: 80053; 93005; 96374; 99284; 71045; 84484; 85025; 93010; J1885

== ENCOUNTER → 2022-03-02 12:23 | Outpatient (CLI) | payer MEDICAID, SELFPAY ==
--- NOTE | 2022-03-02 | DI.US_ITS ---
Exam(s) US LOWER EXTREMITY VENOUS LT EXAM: US LOWER EXTREMITY VENOUS LT CLINICAL HISTORY: LEG LEG SWELLING, R/O DVT TECHNIQUE: Left lower extremity venous ultrasound performed using grayscale, color-flow, and spectra l Doppler analysis. COMPARISON: No exams were available for comparison FINDINGS: The left common femoral, femoral and popliteal veins demonstrate normal compressibility, augmentation , and color Doppler. The posterior tibial veins are patent. The saphenofemoral junction is unremarka ble. There is no evidence of a Roe cyst. The soft tissues are unremarkable. IMPRESSION: 1. No DVT. 2. Results of this exam have been verbally communicated with provider. DATA REPOSITORY:
== END ==
PROVIDERS: PCP Registered Nurse; Visit Provider Emergency Medicine
DX: M79.89 Other specified soft tissue disorders (principal)
CPT/HCPCS: 93971

== ENCOUNTER 2022-03-02 14:42 | Emergency (ER) | payer MEDICAID, SELFPAY ==
[2022-03-02 14:44] VITALS: BP 147/97; PULSE 75; RESP 16; TEMP 36.6; O2SAT 97
--- NOTE | 2022-03-02 15:00 | ED.GENADUL_ITS ---
Discharge Plan Disposition Patient Disposition: HOME Condition: Stable Discharge Details Clinical Impression: Calf pain Primary Care Provider: Georgie Stewart ED Provider: Mercedes Lee Home Meds and New Rx's Prescriptions: Continued magnesium oxide 500 mg capsule 500 mg PO QHS Qty: 90 3RF buspirone 10 mg Tablet 20 mg PO BID montelukast 10 mg Tablet 10 mg PO DAILY albuterol sulfate [ProAir HFA] 90 mcg/actuation Hfa Aerosol Inhaler 2 puff INHALATION 6XD PRN cholecalciferol (vitamin D3) [Vitamin D3] 10 mcg (400 unit) Tablet 10 mcg PO DAILY fluticasone propionate [Flovent HFA] 110 mcg/actuation Hfa Aerosol Inhaler 2 puff INHALATION BID Discharge Instructions Instructions: Leg Pain (ED) Additional Instructions: Repeat ultrasound in 1 week with persistent pain Ibuprofen as needed for pain return earlier with new or worsening complaints Referrals: Georgie Stewart, TRANSMISSION SUPERINTENDENT [Primary Care Provider] - Discharge Data Discharge Date/Time-TO BE ENTERED AT DEPARTURE: 03/02/22 15:06 Medical Decision Making Ultrasound does not show evidence of acute abnormality per radiology interpretation, this is reviewed with patient She will need repeat ultrasound in 1 week with persistent discomfort Return precautions discussed and patient expressed understanding, discharged home in stable condition with stable vital Medical Records Medical records reviewed: Yes I reviewed the patient's medical records. Lab Data Lab results reviewed: Yes I reviewed the patient's lab results. HPI General Date/Time Provider Initiated Documentation: 03/02/22 14:49 . HPI Narrative: this 36-year-old female presents for ultrasound results of her left lower leg. She states that the pain in persistent but not worsening. She denies any swelling in fact she states that the swelling is improved. She denies any chest pain or shortness of breath. She denies prior history of DVT. Related Data Home Medications Medication Instructions Recorded Confirmed albuterol sulfate 90 mcg/actuation 2 puff inhalation 6XD PRN 03/24/20 03/02/22 aerosol inhaler (ProAir HFA) buspirone 10 mg tablet 20 mg PO BID 03/24/20 03/02/22 cholecalciferol (vitamin D3) 10 10 mcg PO DAILY 03/24/20 03/02/22 mcg (400 unit) tablet (Vitamin D3) fluticasone propionate 110 2 puff inhalation BID 03/24/20 03/02/22 mcg/actuation HFA aerosol inhaler (Flovent HFA) montelukast 10 mg tablet 10 mg PO DAILY 03/24/20 03/02/22 magnesium oxide 500 mg capsule 500 mg PO QHS #90 caps 02/22/22 03/02/22 Previous Rx's Medication Instructions Recorded magnesium oxide 500 mg capsule 500 mg PO QHS #90 caps 02/22/22 Allergies Allergy/AdvReac Type Severity Reaction Status Date / Time aspirin Allergy Unknown Verified 03/02/22 14:47 ciprofloxacin Allergy Unknown Unverified 03/02/22 14:47 grape Allergy Unknown Verified 03/02/22 14:47 losartan Allergy Unknown Verified 03/02/22 14:47 nickel Allergy Unknown Verified 03/02/22 14:47 Penicillins Allergy Unknown Verified 03/02/22 14:47 potassium Allergy Unknown Verified 03/02/22 14:47 acetaminophen [From Tylox] Allergy Unverified 03/02/22 14:47 codeine Allergy Unverified 03/02/22 14:47 latex Allergy Unverified 03/02/22 14:47 orange Allergy Unverified 03/02/22 14:47 oxycodone [From Tylox] Allergy Unverified 03/02/22 14:47 Sulfa (Sulfonamide Allergy Unverified 03/02/22 14:47 Antibiotics) lysol Allergy Unknown Uncoded 03/02/22 14:47 turnips Allergy Unknown Uncoded 03/02/22 14:47 General Stated Complaint: Recheck MICHA: 4 Review of Systems All systems reviewed & are unremarkable except as noted in HPI and below PFSH All Active Problems (Updated 03/02/22 @ 15:02 by ROSI Elaine) Chest pain (Acute) Calf pain (Acute) Atypical migraine (Acute) Frequent headaches (Acute) Dizziness (Acute) Acute pain of right hip (Acute) Medical History (Updated 03/02/22 @ 15:02 by ROSI Elaine) Anxiety Arm numbness Asthma Chronic back pain Depression Fibromyalgia Hx of migraines Hypertension Numbness and tingling of left side of face PTSD (post-traumatic stress disorder) Vertigo Social History Smoking/Tobacco Use Status: Never Smoking risk assessment performed?: Yes Alcohol Intake: never Drug use: Never Substance use type: does not use Do you feel safe at home: Yes Do you feel safe in your relationship?: Yes Exam Const General: cooperative, comfortable, no acute distress and well developed Orientation: alert and oriented x3 Resp Effort & Inspection: normal respiratory effort Cardio Rate: regular rate Rhythm: regular rhythm Neuro General: patient alert and patient oriented x3 Gait: normal gait Extrem General: normal to inspection Other: Distal pulses intact, no peripheral edema Course Vital Signs Vital signs: Vital Signs Temperature 36.6 C 03/02/22 14:44 Pulse 75 03/02/22 14:44 Respiratory Rate 16 03/02/22 14:44 Blood Pressure 147/97 H 03/02/22 14:44 Pulse Oximetry 97 03/02/22 14:44 Temperature 36.6 C 03/02/22 14:44 Pulse 75 03/02/22 14:44 Respiratory Rate 16 03/02/22 14:44 Respiratory Effort 03/02/22 14:47 Blood Pressure 147/97 H 03/02/22 14:44 Pulse Oximetry 97 03/02/22 14:44
== END 2022-03-02 15:06 | disposition home or self-care (01) ==
PROVIDERS: Emergency Provider Physician Assistant; PCP Registered Nurse
DX: M79.662 Pain in left lower leg (principal); J45.909 Unspecified asthma, uncomplicated; F32.A Depression, unspecified; I10 Essential (primary) hypertension; Z79.51 Long term (current) use of inhaled steroids
CPT/HCPCS: 99281; 99282

== ENCOUNTER → 2022-03-09 01:57 | Outpatient (CLI) | payer MEDICAID, SELFPAY ==
--- NOTE | 2022-03-09 | DI.US_ITS ---
Exam(s) US LOWER EXTREMITY VENOUS LT EXAM: US LOWER EXTREMITY VENOUS LT CLINICAL HISTORY: CONTINUED LT CALF PAIN, M79.662,? DVT TECHNIQUE: Grayscale, color, and doppler imaging of the deep venous system of the left lower extremi ty was performed. COMPARISON: US US LOWER EXTREMITY VENOUS LT from 03/02/2022 FINDINGS: There is no evidence of intraluminal thrombus and there is normal compression and augmentation demons trated within the common femoral vein, femoral vein, and popliteal vein. In the ipsilateral calf the interrogated veins also exhibit normal compression/ augmentation properti es. The ipsilateral saphenofemoral junction is patent. IMPRESSION: 1. No evidence of DVT in the left lower extremity. DATA REPOSITORY:
== END ==
PROVIDERS: PCP Registered Nurse; Visit Provider Registered Nurse
DX: M79.662 Pain in left lower leg (principal)
CPT/HCPCS: 93971

== ENCOUNTER → 2022-03-17 00:56 | Outpatient (CLI) | payer MEDICAID, SELFPAY ==
--- OUTSIDE RECORDS SUMMARY | 2022-03-17 00:57 | XMS_ITS | Encounter Summary ---
:1985 Author Organization [facility] Address [address] [place] [address] Care Team Providers Name Role Phone Georgie Stewart RUBEN Primary Care Provider [phone] Encounter Details Date Type Department Care Team Description 09/09/2019 Historical Results [facility] - [place] [address] [facility] [address] [place], [place] [id number] [place] [address] [phone] Social History Tobacco Use Types Packs/Day Years Used Date Never Smoker Smokeless Tobacco: Never Used Alcohol Use Standard Drinks/Week Comments Never 0 (1 standard drink = 0.6 oz pure alcoho l) Alcohol Habits Answer Date Recorded How often do you have a drink containing alcohol? Never 10/07/2019 How many drinks containing alcohol do you have on a typical Not asked day when you are drinking? How often do you have six or more drinks on one occasion? No t asked Comment: Not asked Food Insecurity Answer Date Recorded Within the past 12 months, you worried that your food would Never true 10/07/2019 run out before you got money to buy more. Within the past 12 months, the food you bought just didn't N ever true 10/07/2019 last and you didn't have money to get more. Sex Assigned at Date Recorded Not on file documented as of this encounter Functional Status Functional Status Response Date of Assessment Because of a physical, mental, or emotional condition, No 07/23/2019 does this person have difficulty doing errands alone such as visiting a doctor's office or shopping? Cognitive Status Response Date of Assessment Because of a physical, mental, or emotional condition, No 07/23/2019 does this person have serious difficulty concentrating, remembering, or making decisions? documented as of this encounter Plan of Treatment Not on filedocumented as of this encounter Procedures Procedure Name Priority Date/Time Associated Diagnosis Comme nts BACTERIAL CULTURE, Routine 09/09/2019 4:20 EST Re sults for this URINE procedure are i n the results section. documented in this encounter Results BACTERIAL CULTURE, URINE (09/09/2019 4:20 EST) USUAL [facility] CitrateConcentration 10,000-100,00 CFU/ML [address] LAB Specimen Performing Organization Address City/State/ZIP Code Phon e Number [facility] [address] [place], [place] [id number] [place] [address] LAB documented in this encounter Visit Diagnoses Not on filedocumented in this encounter Care Teams Microarray Specialist Relationship Specialty Start Date End Date Georgie Stewart APRN PCP - General 07/07/[address] [place] [address] documented as of this encounter
--- OUTSIDE RECORDS SUMMARY | 2022-03-17 00:57 | XMS_ITS | Encounter Summary ---
:1985 Author Organization [facility] Address [address] [place] [address] Care Team Providers Name Role Phone Georgie Stewart RUBEN Primary Care Provider [phone] Reason for Visit Reason Comments Follow-up S/P HYST Encounter Details Date Type Department Care Team Description 09/04/2019 Office Visit [facility] - [address] [facility] (Primary Dx) [address] [place] [address] [address] [place] [id number] Social History Tobacco Use Types Packs/Day Years [...] on file documented as of this encounter Last Filed Vital Signs Vital Sign Reading Time Taken Comments Blood Pressure 120/84 09/04/2019 1012 EST Pulse - - Temperature - - Respiratory Rate 16 09/04/2019 1012 EST Oxygen Saturation - - Inhaled Oxygen Concentration - - Weight 98.4 kg (217 lb) 09/04/2019 1012 EST Height 160 cm (5' 3) 09/04/2019 1012 EST Body Mass Index 38.44 09/04/2019 1012 EST documented in this encounter Functional Status Functional Status Response [...] making decisions? documented as of this encounter Progress Notes Swati Lane MD - 09/04/2019 0957 EST HPI: María Elena Mantilla is a 34 y.o. here today for follow up s/p TLH, BS, RO on 08/18/19. Overall she is feeling much better. In less pain that prior to surgery. Just hurts a little to bend over. No vaginal bleeding. No fever. No n/v. ROS: Review of Systems Constitutional: Negative. Respiratory: Negative. Cardiovascular: Negative. 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 Social History Substance and Sexual Activity Sexual Activity Not Currently OB History Para Term AB Living 7 3 3 0 4 3 SAB TAB Ectopic Multiple Live Births # Outcome Date GA Lbr Marty/2nd Weight Sex Delivery Anes PTL Lv 7 AB 6 AB 5 AB 4 AB 3 Term 2 Term 1 Term Past Medical History: Diagnosis Date ??? Pancreatitis as a teenager, hospitalized for a week Past Surgical History: Procedure Laterality Date ??? DILATION AND CURETTAGE OF UTERUS ??? HYSTERECTOMY 08/18/2019 both tubes and right ovary removed ??? HYSTEROSCOPY 03/21, 06/21 ??? TUBAL LIGATION Bilateral 2009 Social History Tobacco Use ??? Smoking status: Never Smoker ??? Smokeless tobacco: Never Used Substance Use Topics ??? Alcohol use: Never Frequency: Never ??? Drug use: Never Family History Problem Relation Age of Onset ??? Heart Disease Mother had stent ??? Diabetes Sister ??? Kidney Cancer Maternal Grandmother ??? Ovarian Cancer Cousin Allergies Allergen Reactions ??? Codeine Anaphylaxis ??? Uddhrxs-Niy-Jq-Acetaminophen Anaphylaxis ??? Sulfa (Sulfonamide Antibiotics) Anaphylaxis ??? Aspirin Other reaction(s): unsure of reaction ??? [place] And Derivatives Other reaction(s): rash and hives and GI S/SX ??? Grape Other reaction(s): hives and rash ??? Latex Rash ??? Nickel Rash ??? Turnip Rash ??? Wool Other reaction(s): rash, throat closes Current Outpatient Medications: albuterol 90 mcg/actuation inhaler busPIRone (BUSPAR) 10 mg tablet fluticasone propionate (FLOVENT HFA) 110 mcg/actuation inhaler montelukast (SINGULAIR) 10 mg tablet nystatin (MYCOSTATIN) cream omeprazole (PRILOSEC) 20 mg capsule No current facility-administered medications for this visit. Objective: BP 120/84 (BP Cuff Location: Right arm, BP Patient Position: Sitting, BP Cuff Sizes: Adult, large) Resp 16 Ht 160 cm (63) Wt 98.4 kg (217 lb) LMP 06/05/2019 (Approximate) BMI 38.44 kg/m?? Physical Exam General: Pleasant, alert, cooperative Abdomen: soft, non-tender, non-distended, no masses palpated, incisions well healed Skin: warm and dry, no rash Assessment/Plan: María Elena Mantilla is a 34 y.o. with doing well s/p hysterectomy. F/u in another month for exam of cuff. No problem-specific Assessment & Plan notes found for this encounter. Diagnoses and all orders for this visit: Post-operative state Other orders - omeprazole; Take 20 mg by mouth every morning. Swati Lane MD documented in this encounter Plan of Treatment Not on filedocumented as of this encounter Visit Diagnoses Diagnosis Post-operative state - Primary Other postprocedural status documented in this encounter Historical Medications This list may reflect changes made after this encounter. Medication Sig Dispensed Refills Start Date End Date omeprazole (PRILOSEC) 20 mg Take 20 mg by 0 10/07/2019 capsuleIndications: mouth every gastroesophageal reflux morning. disease, heartburn added in this encounter Care Teams Rectifying Operator Relationship Specialty Start Date End Date Georgie Stewart APRN PCP - General 07/07/[address] [place] [phone] documented as of this encounter
--- OUTSIDE RECORDS SUMMARY | 2022-03-17 00:57 | XMS_ITS | Encounter Summary ---
:1985 Author Organization [facility] Address [address] [place] [address] Care Team Providers Name Role Phone Georgie Stewart RUBEN Primary Care Provider [phone] Reason for Visit Reason Onset Date Comments Prior Auth, Other (i.e. radiology, 08/11/2019 PER M [place] APPR[place]ED etc.) [id number] Encounter Details Date Type Department Care Team Description 08/11/2019 Telephone [facility] - [address] Pr ior Auth, Other (i.e. [facility] radiology, etc.) (PER [address] [place] [address] [address] APPROVED [id number]) [phone] [place] [address] (Wo rk) Social History Tobacco Use Types Packs/Day Years [...] making decisions? documented as of this encounter Miscellaneous Notes Telephone Encounter - Kalani Cordova - 08/11/2019 1047 EST PER [place] [id number] signed by Kalani Cordova at 08/11/2019 10:49 ESTdocumented in this encounter Plan of Treatment Not on filedocumented as of this encounter Visit Diagnoses Not on filedocumented in this encounter Care Teams Machine Design Engineer Relationship Specialty Start Date End Date Georgie Stewart APRN PCP - General 07/07/[address] [place] [phone] documented as of this encounter
--- OUTSIDE RECORDS SUMMARY | 2022-03-17 00:57 | XMS_ITS | Encounter Summary ---
:[address] [facility] Address [address] [place] [address] Care Team Providers Name Role Phone Georgie Stewart RUBEN Primary Care Provider [phone] Encounter Details Date Type Department Care Team Description 08/18/2019 Orders Only [facility] - [facility] [place] [place] Swati Lane MD [facility] [address] [facility] 130 [facility], [address] [place] [address] [place] [address] (Wo rk) Social History Tobacco [...] Diagnoses Not on filedocumented in this encounter Discontinued Medications Medication Sig Discontinue Reason Start Date End Date doxycycline (VIBRAMYCIN) TAKE ONE CAPSULE BY Therapy completed 02/201908/18/2019 100 mg capsule MOUTH TWICE A DAY FOR 14 DAYS documented as of this encounter Care Teams Investigative Assistant Relationship Specialty Start Date End Date Georgie Stewart, CONTACT MANAGER PCP - General 07/07/19 [address] [place] [phone] documented as of this encounter
--- OUTSIDE RECORDS SUMMARY | 2022-03-17 00:57 | XMS_ITS | Encounter Summary ---
:1985 Author Organization [facility] Address [address] [place] [address] Care Team Providers Name Role Phone Georgie Stewart RUBEN Primary Care Provider Reason for Visit Reason Comments Pre-op Exam Encounter Details Date Type Department Care Team Description 07/23/2019 Office Visit [facility] - Swati Lane, Sammy sfunctional uterine bleeding (Primary Dx); [facility] Liver hemangioma; [address] [place] [address] [address], [address] [place] [id number] Social History Tobacco Use Types Packs/Day Years [...] Sign Reading Time Taken Comments Blood Pressure 114/70 07/23/2019 1416 EST Pulse 88 07/23/2019 1416 EST Temperature 36.7 ??C (98.1 ??F) 07/23/2019 1416 EST Respiratory Rate 18 07/23/2019 1416 EST Oxygen Saturation - - Inhaled Oxygen Concentration - - Weight 98 kg (216 lb) 07/23/2019 1416 EST Height 160 cm (5' 3) 07/23/2019 1416 EST Body Mass Index 38.26 07/23/2019 1416 EST documented in this encounter Functional Status [...] encounter Progress Notes Swati Lane MD - 07/23/2019 1400 EST Pain on right HPI: María Elena Mantilla is a 33 y.o. who presents for pre-op for scheduled TLH/bilateral salpingectomy d/t DUB. She is just finishing a course of doxycycline for suggestion of chronic endometritis on recent D&C. She is having just some scant spotting at this time. She does also have some pain on her right side of unclear etiology. Has seen spine center, PCP, had abdominal u/s with nonspecificliver findings, and has apt scheduled with GI. ROS: Review of Systems Constitutional: Positive for malaise/fatigue. Respiratory: Negative. Cardiovascular: Negative. Gastrointestinal: Has apt to see GI d/t u/s findings of hemangiomas, cysts, hepatosteatosis Musculoskeletal: Positive for back pain. Skin: Negative. Endo/Heme/Allergies: Negative. Psychiatric/Behavioral: Positive for depression. 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 Menses: irregular and heavy STI's: none Sexual activity: yes, with senior living male partner Contraception: female sterilization procedure Cervical cancer screening: no abn paps Nml pap/neg HPV September 2018 Breast cancer screening: nml right mammo and u/s in September 2018 OB History Para Term AB Living 7 [...] Past Surgical History: Procedure Laterality Date ??? HYSTEROSCOPY 03/21, 06/21 ??? TUBAL LIGATION [...] Allergies Allergen Reactions ??? Codeine Anaphylaxis ??? Fguiqsa-Jps-Jy-Acetaminophen Anaphylaxis ??? Sulfa (Sulfonamide Antibiotics) Anaphylaxis ??? Aspirin Other reaction(s): unsure of reaction ??? Tillson And Derivatives Other reaction(s): rash and hives and GI S/SX ??? Grape Other reaction(s): hives and rash ??? Latex Rash ??? Nickel Rash ??? Turnip Rash ??? Wool Other reaction(s): rash, throat closes Current Outpatient Medications: albuterol 90 mcg/actuation inhaler busPIRone (BUSPAR) 10 mg tablet doxycycline (VIBRAMYCIN) 100 mg capsule fluticasone propionate (FLOVENT HFA) 110 mcg/actuation inhaler ibuprofen (MOTRIN) 600 mg tablet montelukast (SINGULAIR) 10 mg tablet No current facility-administered medications for this visit. Objective: BP 114/70 (BP Cuff Location: Right arm, BP Patient Position: Sitting, BP Cuff Sizes: Adult, large) Pulse 88 Temp 36.7 ??C (98.1 ??F) (Oral) Resp 18 Ht 160 cm (63) Wt 98 kg (216 lb) LMP 06/05/2019 (Approximate) BMI 38.26 kg/m?? Exam chaperoned by Pt declined Physical Exam General: Pleasant, alert, cooperative Neck: supple, no thyromegaly Heart: regular in rate and rhythm Lungs: clear to auscultation, breathing unlabored Abdomen: soft, non-tender, non-distended, no masses palpated Pelvic: normal external genitalia, vaginal mucosa moist and pink, cervix normal in appearance, uterus normal size and non-tender, no adnexal masses or tenderness Skin: warm and dry Assessment/Plan: María Elena Mantilla is a 33 y.o. who presents with DUB here for pre-op for scheduled TLH/BS. Dysfunctional uterine bleeding Has been treated with HD&C x 2 and depoprovera. Declines levonorgestrel IUS or other conservative management. Requests definitive management with hysterectomy. Reviewed alternatives again today. Reviewed risks of surgery including bleeding, infection, injury to other organs including bowels or urinary tract. Plan for TLH with bilateral salpingectomy. Recommend ovarian conservation d/t her age.R/b of oophorectomy reviewed. She has been having pain on the right and does request removal of right ovary if any possible cause for pain is found on laparoscopy. Will plan to conserve at least left ovary unless there is a compelling intra-op reason for bilateral oophorectomy. Questions answered. Consent signed. Right-sided abdominal pain of unknown cause Will assess for cause at time of laparoscopy. Would favor ovarian conservation d/t her age but if there is any pathology noted she has signed consent for right and/or left oophorectomy. She would like me to err on the side of removing right side if any possible cause of pain found. Diagnoses and all orders for this visit: Dysfunctional uterine bleeding Liver hemangioma Anxiety and depression Other orders - montelukast; 1 tab(s) orally once a day, prn - fluticasone propionate; 2 puff(s) inhaled 2 times a day - doxycycline hyclate; TAKE ONE CAPSULE BY MOUTH TWICE A DAY FOR 14 DAYS - busPIRone; 2 tab(s) orally am and hs - albuterol sulfate; Inhale 2 Puffs as directed every 4 hours as needed for Wheezing. - ibuprofen; Take 600 mg by mouth every 6 hours as needed for Pain. Swati Lane MD documented in this encounter Miscellaneous Notes Assessment & Plan Note - Swati Lane MD - 07/27/2019 1515 ESTAssociated Problem(s): Right-sided abdominal pain of unknown cause Will assess for cause at time of laparoscopy. Would favor ovarian conservation d/t her age but if there is any pathology noted she has signed consent for right and/or left oophorectomy. She would like me to err on the side of removing right side if any possible cause of pain found. ssessment & Plan Note - Swati Lane MD - 07/27/2019 1502 ESTAssociated Problem(s): Dysfunctional uterine bleeding Has been treated with HD&C x 2 and depoprovera. Declines levonorgestrel IUS or other conservative management. Requests definitive management with hysterectomy. Reviewed alternatives again today. Reviewed risks of surgery including bleeding, infection, injury to other organs including bowels or urinary tract. Plan for TLH with bilateral salpingectomy. Recommend ovarian conservation d/t her age.R/b of oophorectomy reviewed. She has been having pain on the right and does request removal of right ovary if any possible cause for pain is found on laparoscopy. Will plan to conserve at least left ovary unless there is a compelling intra-op reason for bilateral oophorectomy. Questions answered. Consent signed. documented in this encounter Plan of Treatment Not on filedocumented as of this encounter Visit Diagnoses Diagnosis Dysfunctional uterine bleeding - Primary Other disorder of menstruation and other abnormal bleeding from female genital tract Liver hemangioma Hemangioma of intra-abdominal structures Anxiety and depression Dysthymic disorder documented in this encounter Historical Medications This list may reflect changes made after this encounter. Medication Sig Dispensed Refills Start Date End Date albuterol 90 Inhale 2 Puffs as 0 mcg/actuation inhaler directed every 4 hours as needed for Wheezing. busPIRone (BUSPAR) 10 mg 2 tab(s) orally am 0 tablet and hs fluticasone propionate 2 puff(s) inhaled 2 0 (FLOVENT HFA) 110 times a day mcg/actuation inhaler montelukast (SINGULAIR) Take 20 mg by mouth 0 10 mg tablet daily. ibuprofen (MOTRIN) 600 Take 600 mg by mouth 0 08/21/2019 mg tablet every 6 hours as needed for Pain. doxycycline (VIBRAMYCIN) TAKE ONE CAPSULE BY 0 08/18/2019 100 mg capsule MOUTH TWICE A DAY FOR 14 DAYS added in this encounter Care Teams Step Finisher Relationship Specialty Start Date End Date Georgie Stewart APRN PCP - General 07/07/[address] [place] [phone] documented as of this encounter
--- OUTSIDE RECORDS SUMMARY | 2022-03-17 00:57 | XMS_ITS | Encounter Summary ---
:1985 Author Organization [facility] Address [address] [place] [address] Care Team Providers Name Role Phone Jose Hillman MD Primary Care Provider Georgie Stewart APRN Primary Care Provider [phone] Encounter Details Date Type Department Care Team Description 06/19/2019 Results Only Imaging [facility] - Dannie Oliver [facility] Radiology Resul jake Quesada MD [address] [facility] 130 [place], [place] [address] [place] [address] [phone] (Wo rk) Social History Tobacco Use Types Packs/Day Years Used Date Never Assessed Alcohol Habits Answer Date Recorded How often [...] on file documented as of this encounter Plan of Treatment Not on filedocumented as of this encounter Procedures Procedure Name Priority Date/Time Associated Comments Diagnosis US PELVIS 06/19/2019 9:32 Results for this TRANSVAGINAL EDT procedure are i n the results section. documented in this encounter Results US PELVIS TRANSVAGINAL (06/19/2019 9:32 EDT) Specimen Narrative [facility] - 06/19/2019 9:32 EDT ? EXAM: ULTRASOUND/TRANSVAGINAL - EXHIBIT DESIGNER ? EX. D/ (0855) ? CLINICAL INFORMATION: ? Persitent VB ? TRANSVAGINAL - EXHIBIT DESIGNER ? Signs and Symptoms/Comments: ??Pe rsitent VB ? Comparison: None available ? Technique: Pelvic ultrasound was performed. Color Doppler imaging was ? also utilized. Transvaginal scann ing was performed. ? FINDINGS: ? Uterus: ? Orientation: Anteverted ? Size: 10.4 cm x 6.1 cm x 7.8 cm ? Findings: None. ? Cervix: Normal. ? Endometrium: ? Echotexture: Heterogeneous. ? Thickness: 22.7 mm premenopausal (per patient) ? Ovaries: ? Right ovary: ? Size: 2.3 cm x 2.1 cm x 1.9 cm. ? Volume : 4.8 cc. ? Doppler flow: Color Doppler flow is grossly present, however ? waveforms were not assessed. ? Findings: None. ? Left ovary: ? Size: 2.4 cm x 1.9 cm x 1.5 cm. ? Volume : 3.6 cc. ? Doppler flow: Color Doppler flow is grossly present, however ? waveforms were not assessed. ? Findings: None. ? Cul-de-sac: No free fluid. ? IMPRESSION: ? PAGE 1 ? Barbi d Report ? (CONTINUED) ? Thickened, heterogeneous endometr ium measures 20.7 mm.. ? REPORT SIGNED IN OTHER VENDOR SYSTEM 06/19/2019 ?Reported B y: David Nguyen MD ? CC: Niranjan Oliver MD ? Transcribed Date/Time: 06/19/2019 (931) ? Forensics Analyst: ? Printed Date/Time: 06/19/2019 () ? PAGE 2 ? Barbi d Report ? Procedure Note David Nguyen E - 07/12/2019 EXAM: ULTRASOUND/TRANSVAGINAL - EXHIBIT DESIGNER EX. D/ (0855) CLINICAL INFORMATION: Persitent VB TRANSVAGINAL - EXHIBIT DESIGNER Signs and Symptoms/Comments: Persitent VB Comparison: None available Technique: Pelvic ultrasound was perfor med. Color Doppler imaging was also utilized. Transvaginal scanning wa s performed. FINDINGS: Uterus: Orientation: Anteverted Size: 10.4 cm x 6.1 cm x 7.8 cm Findings: None. Cervix: Normal. Endometrium: Echotexture: Heterogeneous. Thickness: 22.7 mm premenopausal (per p atient) Ovaries: Right ovary: Size: 2.3 cm x 2.1 cm x 1.9 cm. Volume : 4.8 cc. Doppler flow: Color Doppler flow is sandhya ssly present, however waveforms were not assessed. Findings: None. Left ovary: Size: 2.4 cm x 1.9 cm x 1.5 cm. Volume : 3.6 cc. Doppler flow: Color Doppler flow is sandhya ssly present, however waveforms were not assessed. Findings: None. Cul-de-sac: No free fluid. IMPRESSION: PAGE 1 Signed Report (CONTINUED) Thickened, heterogeneous endometrium me asures 20.7 mm.. REPORT SIGNED IN OTHER VENDOR SYSTEM 06/19/2019 Reported By: David Nguyen MD CC: Niranjan Oliver MD Transcribed Date/Time: 06/19/2019 (931 ) Forensics Analyst: Printed Date/Time: 06/19/2019 (931) PAGE 2 Signed Report Performing Organization Address City/State/ZIP Code Phon e Number [facility] documented in this encounter Visit Diagnoses Not on filedocumented in this encounter Care Teams Scrap Wheeler Relationship Specialty Start Date End Date Jose Hillman MD PCP - General 04/02/09 07/06/[address] [place], [place] [phone] Georgie Stewart APRN PCP - General 07/07/[address] [place] [phone] documented as of this encounter
--- OUTSIDE RECORDS SUMMARY | 2022-03-17 00:57 | XMS_ITS | Encounter Summary ---
:1985 Author Organization [facility] Address [address] [place] [address] Care Team Providers Name Role Phone Georgie Stewart APRN Primary Care Provider [phone] Encounter Details Date Type Department Care Team Description 10/07/2019 Travel Social History Tobacco Use Types Packs/Day Years [...] on filedocumented in this encounter Care Teams Administrative Manager Relationship Specialty Start Date End Date Georgie Stewart APRN PCP - General 07/07/19 [address] [place] [phone] documented as of this encounter
--- OUTSIDE RECORDS SUMMARY | 2022-03-17 00:57 | XMS_ITS | Encounter Summary ---
:1985 Author Organization [facility] Address [address] [place] [address] Care Team Providers Name Role Phone Georgie Stewart RUBEN Primary Care Provider [phone] Encounter Details Date Type Department Care Team Description 09/09/2019 Results Only [facility]- Lucas Gonzalez [phone] MD [place] [address] [place] [phone] (Wo rk) Social History Tobacco Use Types [...] Procedure Name Priority Date/Time Associated Comments Diagnosis URINALYSIS/COMPLETE - Routine 09/09/2019 4:20 Res ults for this [facility] EST procedure are i n the results section. COMPLETE BLOOD COUNT Routine 09/09/2019 4:19 Resu lts for this WITH DIFFERENTIAL EST procedure are in (AUTO) the results section. C REACTIVE PROTEIN Routine 09/09/2019 4:19 Result s for this EST procedure are i n the results section. COMPREHENSIVE Routine 09/09/2019 4:19 Results for this METABOLIC PANEL (CMP) EST proced ure are in the results section. documented in this encounter Results URINALYSIS/COMPLETE - [facility] (09/09/2019 4:20 EST) URINE APPEARANCE - Clear CLEAR [facility] URINE BACTERIA - FEW [facility] URINE BILIRUBIN - 1+ NEGATIVE [facility] DIPSTICK [facility] Comment: [facility] Unable to confirm positive urine bilirubin. If clinica l correlation is inconsistent, consider serum bilirubin. URINE BLOOD - [facility] 3+ NEG [facility] URINE COLOR - [facility] Yellow YELLOW [facility] URINE GLUCOSE - Negative NEGATIVE [facility] DIPSTICK [facility] URINE KETONE - [facility] Trace NEGATIVE [facility] URINE LEUK ESTERASE 1+ NEG [facility] URINE NITRITE - Negative NEG [facility] D[facility] URINE PH - [facility] 5.5 4.0 - 8.0 [facility] URINE PROTEIN - Trace NEG [facility] DIPSTICK [facility] URINE RBC - [facility] 15-20 rbc/hpf [facility] URCULTIF+? - [facility] Culture Ordered [facility] URINE SPECIFIC >=1.030 1.001 - 1.035 [facility] GRAVITY [facility] URINE SQUAMOUS FEW NEG #/hpf [facility] CELLS [facility] URINE UROBILINOGEN 0.2 0.2 - 1.0 [facility] - DIPSTICK [facility] URINE WBC - [facility] 10-15 NEG wbc/hpf [facility] Specimen Narrative This result has an attachment that is no t available. Performing Organization Address City/[facility] Code Phon e Number [facility] [address] [place] [address] [facility] (ABNORMAL) C REACTIVE PROTEIN (09/09/2019 4:19 EST) Pathologist Sig nature C-Reactive Protein 10.2 (H) <10.0 mg/L [facility] Specimen Performing Organization Address [facility] Phon e Number [facility] [address] [place] [address] [facility] (ABNORMAL) COMPREHENSIVE METABOLIC PANEL (CMP) (09/09/2019 4:19 EST) ALBUMIN - [facility] 4.0 3.4 - 4.9 [facility] g/dL [facility] ALKALINE 84 38 - 126 U/L [facility] PHOSPHATASE - [facility] BILIRUBIN TOTAL 0.2 0.2 - 1.3 [facility] mg/dL [facility] BUN - [facility] 21 10 - 26 mg/dL [facility] CALCIUM - [facility] 9.5 8.5 - 10.5 [facility] mg/dL [facility] Chloride 108 96 - 110 [facility] mmol/L [facility] CO2 Total 22 22 - 32 mEq/L [facility] CREATININE 0.77 0.52 - 1.04 [facility] mg/dL [facility] eGFR >60 [facility] Comment: [facility] Chronic renal impairment is defined as GFR <60 Multiply result by 1.210 for patients . eGFR calculated using the IDMS-traceable MDRD Study Equation. ??(effective 07/06/2014) Anion Gap 9 0 - 18 [facility] GLUCOSE - [facility] 112 (H) 70 - 100 [facility] mg/dL [facility] Potassium 3.9 3.5 - 5.0 [facility] mEq/L [facility] Sodium 139 136 - 145 [facility] mEq/L [facility] TOTAL PROTEIN - 7.3 6.2 - 8.2 [facility] gm/dL [facility] SGOT/AST - [facility] 18 14 - 36 U/L [facility] SGPT/ALT - [facility] 29 9 - 52 U/L [facility] Specimen Performing Organization Address [facility]/ZIP Code Phon e Number [facility] [address] [place], [place] [id number] [place] [address] LAB (ABNORMAL) COMPLETE BLOOD COUNT WITH DIFFERENTIAL (AUTO) (09/09/2019 4:19 EST) Pathologist Sig nature Gran # 4.4 2.2 - 8.85 [facility] 10e3/uL [facility]ENTER LAB BASO # - [facility] 0.06 0.01 - 0.11 [facility] 10e/uL [facility] BASO % - [facility] 1 0 - 2 % [facility] EOS # - [facility] 0.40 0.03 - 0.61 [facility] 10e3/ul [facility] EOS % - [facility] 5 0 - 5 % [facility] GRAN % - [facility] 56.4 40 - 80 % [facility] HEMATOCRIT - [facility] 40.6 34.9 - 44.4 % [facility] HEMOGLOBIN - [facility] 12.7 11.6 - 15.2 [facility] g/dl [facility] IG# - [facility] 0.04 0 - 0.7 10e3/uL [facility] IG% - [facility] 0.5 0 - 0.9 % [facility] LYMPH # - [facility] 2.4 1.09 - 3.3 [facility] 10e3/ul [facility] LYMPH% - [facility] 31.1 20 - 40 % [facility] MEAN CORPUSCULAR HGB 27.0 26.7 - 33.3 pg [facility] ME D - [facility] LAB MEAN CORPUSCULAR HGB 31.3 (L) 32.1 - 35.9 [facility] CONC - [facility] g/dL [facility] MEAN CELL VOLUME - 86.2 81 - 98 fl [facility] MONO # - [facility] 0.5 0.1 - 0.8 [facility] 10e3/uL [facility] MONO% - [facility] 6.1 0 - 12 % [facility] PLATELET COUNT 346 141 - 377 [facility] 10e3/ul [facility] RED BLOOD COUNT - 4.71 3.86 - 5.04 [facility] 10e3/ul [facility] RED CELL DISTRI WIDTH 12.7 <14.7 % [facility] WHITE BLOOD COUNT - 7.9 4.0 - 12.4 [facility] 10e3/ul CENTER LAB Specimen Performing Organization Address City/State/ZIP Code Phon e Number [facility] [address] [place] [address] [facility] documented in this encounter Visit Diagnoses Not on filedocumented in this encounter Care Teams Dial Screw Assembler Relationship Specialty Start Date End Date Georgie Stewart APRN PCP - General 07/07/[address] [place] [phone] documented as of this encounter
--- OUTSIDE RECORDS SUMMARY | 2022-03-17 00:57 | XMS_ITS | Encounter Summary ---
:1985 Author Organization [facility] Address [address] [place] [address] Care Team Providers Name Role Phone Jose Hillman MD Primary Care Provider Georgie Stewart APRN Primary Care Provider [phone] Encounter Details Date Type Department Care Team Description 06/19/2019 Results Only [facility] Zoran Lubin MD Lab - Main [address] [address] [place] [address] [phone] Social History Tobacco Use Types Packs/Day Years [...] Procedure Name Priority Date/Time Associated Comments Diagnosis [facility] Routine 06/19/2019 6:50 Result s for this EDT procedure are i n the results section. COMPLETE BLOOD COUNT Routine 06/19/2019 6:50 Resu lts for this WITH DIFFERENTIAL EDT procedure are in (AUTO) the results section. C REACTIVE PROTEIN Routine 06/19/2019 6:50 Result s for this EDT procedure are i n the results section. COMPREHENSIVE Routine 06/19/2019 6:50 Results for this METABOLIC PANEL (CMP) EDT proced ure are in the results section. documented in this encounter Results C REACTIVE PROTEIN (06/19/2019 6:50 EDT) Pathologist Sig nature C-Reactive Protein 7.7 <10.0 mg/L [facility] Specimen Performing Organization Address City/State/ZIP Code Phon e Number [facility] [address] LAB (ABNORMAL) COMPREHENSIVE METABOLIC PANEL (CMP) (06/19/2019 6:50 EDT) ALBUMIN - [facility] 4.2 3.4 - 4.9 [facility] g/dL [facility] ALKALINE 62 38 - 126 U/L [facility] PHOSPHATASE [facility] BILIRUBIN TOTAL 0.5 0.2 - 1.3 [facility] mg/dL [facility] BUN - [facility] 12 10 - 26 mg/dL [facility] CALCIUM - [facility] 9.4 8.5 - 10.5 [facility] mg/dL [facility] Chloride 108 96 - [address] [facility] mmol/L [facility] LAB CO2 Total 19 (L) 22 - 32 mEq/L [facility] CREATININE 0.75 0.52 - 1.04 [facility] mg/dL [facility] LAB eGFR >60 [facility] Comment: [facility] Chronic renal impairment is defined as GFR <60 Multiply result by 1.210 for patients . eGFR calculated using the IDMS-traceable MDRD Study Equation. ??(effective 07/06/2014) Anion Gap 14 0 - 18 [facility] GLUCOSE - [facility] 114 (H) 70 - [address] [facility] mg/dL [facility] LAB Potassium 4.0 3.5 - 5.0 [facility] mEq/L [facility] LAB Sodium 141 136 - [address] [facility] mEq/L [facility] LAB TOTAL PROTEIN - 7.4 6.2 - 8.2 [facility] gm/dL [facility] LAB SGOT/AST - [facility] 23 14 - 36 U/L [facility] SGPT/ALT - [facility] 38 9 - 52 U/L [facility] Specimen Performing Organization Address City/State/ZIP Code Phon e Number [facility] [address] LAB BHCG SCREEN - [facility] (06/19/2019 6:50 EDT) Pathologist Sig nature [facility] - [facility] NEG [facility] CE NTER LAB Specimen Performing Organization Address City/[facility]/ZIP Code Phon e Number [facility] [address] LAB COMPLETE BLOOD COUNT WITH DIFFERENTIAL (AUTO) (06/19/2019 6:50 EDT) Pathologist Sig nature ABSOLUTE NEUTROPHIL 4.7 2.2 - 8.85 [facility] COUN - CV 10e3/uL CENTER LAB BASO # - [facility] 0.05 0.01 - 0.11 [facility] 10e/uL [place] BASO % - [facility] 1 0 - 2 % [facility] EOS # - [facility] 0.27 0.03 - 0.61 [facility] 10e3/ul [place] [facility] EOS % - [facility] 3 0 - 5 % [facility] GRAN % - [facility] 59.6 40 - 80 % [facility] HEMATOCRIT - [facility] 38.7 34.9 - 44.4 % [facility] HEMOGLOBIN - [facility] 12.9 11.6 - 15.2 g/dl [facility] IG# - [facility] 0.04 0 - 0.7 10e3/uL [facility] IG% - [facility] 0.5 0 - 0.9 % [facility] LYMPH # - [facility] 2.3 1.09 - 3.3 [facility] 10e3/ul [place] [facility] LYMPH% - [facility] 28.5 20 - 40 % [facility] MEAN CORPUSCULAR HGB - 30.4 26.7 - 33.3 pg [facility] LAB MEAN CORPUSCULAR HGB 33.3 32.1 - 35.9 g/dL [facility] CONC - [facility] CENTER LAB MEAN CELL VOLUME - 91.1 81 - 98 fl [facility] LAB MONO # - [facility] 0.6 0.1 - 0.8 [facility] 10e3/uL [place] [facility] MONO% - [facility] 7.4 0 - 12 % [facility] PLATELET COUNT 314 141 - 377 [facility] 10e3/ul [place] [facility] RED BLOOD COUNT - [facility] 4.25 3.86 - 5.04 [facility] ME D 10e3/ul CENTER LAB RED CELL DISTRI WIDTH 12.1 <14.7 % [facility] WHITE BLOOD COUNT - 8.0 4.0 - 12.4 [facility] 10e3/ul [place] [facility] Specimen Performing Organization Address City/State/ZIP Code Phon e Number [facility] [address] [place] [address] [facility] documented in this encounter Visit Diagnoses Not on filedocumented in this encounter Care Teams Fire Equipment Inspector Relationship Specialty Start Date End Date Jose Hillman MD PCP - General 04/02/09 07/06/19 [address] [place] [address] Georgie Stewart APRN PCP - General 07/07/19 [address] [place] [phone] documented as of this encounter
--- OUTSIDE RECORDS SUMMARY | 2022-03-17 00:57 | XMS_ITS | Encounter Summary ---
:[address] [facility] Address [address] [place] [address] Care Team Providers Name Role Phone Georgie Stewart RUBEN Primary Care Provider [phone] Reason for Visit Reason Onset Date Comments Medications Refill 08/21/2019 Pt is wondering if angelique wells could prescribe ibprophin the over the counter isn't working, Pt had surgery on Sunday, pain is ever y 5 hours. [facility] [place] is her p referred pharmacy. Encounter Details Date Type Department Care Team Description 08/21/2019 Refill [facility] - [address] MD Medications Refill (Pt [facility] [address] [facility] is wondering if provider [address] [place] [address] [address], [address] [place] [address] [place] ibprophin the over the [phone] counter isn't working, (Wo rk) Pt had surgery on Sunday, p ain is every 5 hours. [facility] in [place] is her preferred pharm acy. ) Social History Tobacco Use Types Packs/Day Years [...] making decisions? documented as of this encounter Ordered Prescriptions Prescription Sig Dispensed Refills Start Date End Date ibuprofen (MOTRIN) 800 mg Take 1 Tab by mouth 20 Tab 0 1 10/22/2018 08/28/2019 tablet every 8 hours as needed for up to 7 days for Pain. documented in this encounter Miscellaneous Notes Addendum Note - Jose L Hancock MD - 08/21/2019 1832 EST Addended by: JOSE L HANCOCK on: 08/21/2019 18:32 Modules accepted: Orders elephone Encounter - Jose L Hancock MD - 08/21/2019 1830 EST Spoke with pt and she would like a higher dose of ibuprofen so will send to [facility] in [place]. elephone Encounter - Rani Reyes RN - 08/21/2019 1540 EST Jose L, pt states she had laparoscopic hyst on 08/18/19, went home yesterday. She is taking [id number] every 6 hours and dilaudid prn, has taken three today. Pt states she is in severe pain by the 5th hour, ibuprofen isn't lasting long enough. Pt is requesting prescription strength ibuprofen be sent in to pharmacy if possible. (I was wondering about adding tylenol 650 w/the ibuprofen every 6 hours, not sure if you were doing this). Thanks, Jose L elephone Encounter - Anushka Reis - 08/21/2019 1311 EST Pt is wondering if provider could prescribe ibprophin the over the counter isn't working, Pt had surgery on Sunday, pain is every 5 hours. [facility] in [place] is her preferred pharmacy. documented in this encounter Plan of Treatment Not on filedocumented as of this encounter Visit Diagnoses Not on filedocumented in this encounter Discontinued Medications Medication Sig Discontinue Reason Start Date End Date ibuprofen (MOTRIN) 600 Take 600 mg by mouth Alternate therapy 08/21/2019 mg tablet every 6 hours as needed for Pain. documented as of this encounter Care Teams Qual Research Manager Relationship Specialty Start Date End Date Georgie Stewart, STENO POOL SUPERVISOR PCP - General 07/07/[address] [place] [phone] documented as of this encounter
--- OUTSIDE RECORDS SUMMARY | 2022-03-17 00:57 | XMS_ITS | Encounter Summary ---
:1985 Author Organization [facility] Address [address] [place] [address] Care Team Providers Name Role Phone Georgie Stewart RUBEN Primary Care Provider [phone] Encounter Details Date Type Department Care Team Description 09/23/2019 Results Only Imaging [facility] - Gerald Dumont MD [facility] Radiology Resul ts [address] [place] [address] [place], [place] [phone] (Wo rk) Social History Tobacco Use Types [...] Name Priority Date/Time Associated Diagnosis Comme nts MR ABDOMEN W WO 09/23/2019 11:54 Results for this CONTRAST EST procedure are i n the results section. documented in this encounter Results MR ABDOMEN W WO CONTRAST (09/23/2019 11:54 EST) Specimen Narrative [facility] - 09/23/2019 11:54 EST ? EXAM: MAGNETIC RESONANCE IMAGING/ABDOMEN ??EX. D/ (0943) ? CLINICAL INFORMATION: ? Q44.6 F/U LIVER CYSTS ON CT ? INDICATION: Q44.6 F/U LIVER CYSTS ON CT LUVER CYSTS ? TECHNIQUE: ??Multiplanar multiseq uence MRI of the abdomen is performed ? with and without intravenous cont rast ? COMPARISON: Abdomen pelvis 2018 and abdominal ultrasound ? 05/19/2019 ? FINDINGS: ? Liver: There are innumerable T2 h yperintense lesions within the ? liver. The largest of these lesio ns are located in the right hepatic ? lobe and measure 2.1 and 1.7 cm ( axial series 6 image 126 and 200), ? unchanged compared to the CT perf ormed 06/13/2019. There is been no ? definite interval change in the s ize and distribution of these ? lesions compared with the prior C T examination. The majority of these ? lesions are subcentimeter in size . Given their small size and ? respiratory motion artifact, it i s difficult to characterize the ? enhancement pattern. However, the majority of these lesions do not ? enhance and are consistent with c ysts. On the delayed acquisition, a ? few of the smaller lesions follow blood pool signal intensity. For ? example, 1.0, 0.8 and 0.6 cm lesi ons are noted in the right hepatic ? lobe on coronal series 10 image 6 0, 43 and 55, respectively. Given ? their pre and postcontrast signal , and the patient's lack of apparent ? intrinsic hepatic disease, these likely reflect small hemangiomas. ? Biliary Tree: Unremarkable. ? Pancreas: The pancreas is normal without pancreatic ductal ? dilatation. ? Gallbladder: Normal. ? Kidneys: Unremarkable. ? Spleen: Unremarkable. A small spl enule is noted. ? Adrenal Glands: Unremarkable. ? Lymph Nodes: Unremarkable. ? Visible Bowel: Unremarkable. ? Bones: Unremarkable. ? Major vascular structures: Unrema rkable. ? Visible Chest: Unremarkable. ? IMPRESSION: ? Innumerable small hepatic lesions . The vast majority reflect simple ? cysts. The majority of the lesion s are subcentimeter in size and it ? is not possible to accurately shree racterize the enhancement pattern. ? None of these small lesions demon strate definitive enhancement on the ? PAGE 1 ? Barbi d Report ? (CONTINUED) ? dynamic postcontrast acquisitions , but a few small lesions follow ? blood pool signal intensity on th e delayed acquisitions. Although ? nonspecific, these lesions likely reflect hemangiomas. ? REPORT SIGNED IN OTHER VENDOR SYSTEM 09/23/2019 ?Reported B y: David Nguyen MD ? CC: Swati Lane MD; Pritesh Stewart CANVAS SHRINKER AREA DIRECTOR-BC ? Transcribed Date/Time: 09/23/2019 (1154) ? Ships Equipment Engineer: ? Printed Date/Time: 09/23/2019 (11 54) ? PAGE 2 ? Barbi d Report ? Procedure Note David Nguyen MD - 09/23/2019 EXAM: MAGNETIC RESONANCE IMAGING/ABDOME N EX. D/ (0943) CLINICAL INFORMATION: Q44.6 F/U LIVER CYSTS ON CT INDICATION: Q44.6 F/U LIVER CYSTS ON CT LUVER CYSTS TECHNIQUE: Multiplanar multisequence MR I of the abdomen is performed with and without intravenous contrast COMPARISON: Abdomen pelvis 06/13/2019 a nd abdominal ultrasound 05/19/2019 FINDINGS: Liver: There are innumerable T2 hyperin tense lesions within the liver. The largest of these lesions are located in the right hepatic lobe and measure 2.1 and 1.7 cm (axial series 6 image 126 and 200), unchanged compared to the CT performed 06/13/2019. There is been no definite interval change in the size an d distribution of these lesions compared with the prior CT exam ination. The majority of these lesions are subcentimeter in size. Give n their small size and respiratory motion artifact, it is diff icult to characterize the enhancement pattern. However, the major ity of these lesions do not enhance and are consistent with cysts. On the delayed acquisition, a few of the smaller lesions follow blood pool signal intensity. For example, 1.0, 0.8 and 0.6 cm lesions ar e noted in the right hepatic lobe on coronal series 10 image 60, 43 and 55, respectively. Given their pre and postcontrast signal, and the patient's lack of apparent intrinsic hepatic disease, these likely reflect small hemangiomas. Biliary Tree: Unremarkable. Pancreas: The pancreas is normal withou t pancreatic ductal dilatation. Gallbladder: Normal. Kidneys: Unremarkable. Spleen: Unremarkable. A small splenule is noted. Adrenal Glands: Unremarkable. Lymph Nodes: Unremarkable. Visible Bowel: Unremarkable. Bones: Unremarkable. Major vascular structures: Unremarkable . Visible Chest: Unremarkable. IMPRESSION: Innumerable small hepatic lesions. The vast majority reflect simple cysts. The majority of the lesions are subcentimeter in size and it is not possible to accurately character ize the enhancement pattern. None of these small lesions demonstrate definitive enhancement on the PAGE 1 Signed Report (CONTINUED) dynamic postcontrast acquisitions, but a few small lesions follow blood pool signal intensity on the janina yed acquisitions. Although nonspecific, these lesions likely refle ct hemangiomas. REPORT SIGNED IN OTHER VENDOR SYSTEM 09/23/2019 Reported By: David Nguyen MD CC: Swati Lane MD; Georgie Stewart APRN AREA DIRECTOR-BC Transcribed Date/Time: 09/23/2019 (6816 ) Ships Equipment Engineer: Printed Date/Time: 09/23/2019 (9325) PAGE 2 Signed Report Performing Organization Address City/State/ZIP Code Phon e Number [facility] documented in this encounter Visit Diagnoses Not on filedocumented in this encounter Care Teams Operations Intelligence Relationship Specialty Start Date End Date Georgie Stewart APRN PCP - General 07/07/19 [address] [place] [phone] documented as of this encounter
--- OUTSIDE RECORDS SUMMARY | 2022-03-17 00:57 | XMS_ITS | Encounter Summary ---
:1985 Author Organization [facility] Address [address] [place] [address] Care Team Providers Name Role Phone Georgie Stewart RUBEN Primary Care Provider [phone] Reason for Referral Laboratory Services (Routine) - New Request Specialty Diagnoses / Procedures Referred By Contact Refer red To Contact Diagnoses DUB (dysfunctional uterine bleeding) Swati Lane MD Procedures MISCELLANEOUS TEST, NON [facility] [address] [facility], [address] [place] [address] Referral ID Status Reason Start Date Expiration Date Visits V isits Requested Authorized [id number] New Request 2019 1 1 aboratory Services (Routine) - New Request Specialty Diagnoses / Procedures Referred By Contact Refer red To Contact Diagnoses DUB (dysfunctional uterine bleeding) Swati Lane MD Procedures HEMOGLOBIN A1C [address] [facility] [address] [place] [address] Referral ID Status Reason Start Date Expiration Date Visits V isits Requested Authorized [id number] New Request 2019 1 1 aboratory Services (Routine) - New Request Specialty Diagnoses / Procedures Referred By Contact Refer red To Contact Diagnoses DUB (dysfunctional uterine bleeding) Rani Reyes RN Procedures PRE-OP BLOOD BANK DRAW Referral ID Status Reason Start Date Expiration Date Visits V isits Requested Authorized [id number] New Request 2019 1 1 aboratory Services (Routine) - New Request Specialty Diagnoses / Procedures Referred By Contact Refer red To Contact Diagnoses DUB (dysfunctional uterine bleeding) Swati Lane MD Procedures CREATININE [address] [facility], [address] [place] [address] Referral ID Status Reason Start Date Expiration Date Visits V isits Requested Authorized [id number] New Request 2019 1 1 aboratory Services (Routine) - New Request Specialty Diagnoses / Procedures Referred By Contact Refer red To Contact Diagnoses DUB (dysfunctional uterine bleeding) Swati Lane MD Procedures GLUCOSE, SERUM [address] [facility] [address] [place] [phone] Referral ID Status Reason Start Date Expiration Date Visits V isits Requested Authorized [id number] New Request 2019 1 1 aboratory Services (Routine) - New Request Specialty Diagnoses / Procedures Referred By Contact Refer red To Contact Diagnoses DUB (dysfunctional uterine bleeding) Swati Lane MD Procedures COMPLETE BLOOD COUNT AND DIFFERENTIAL [address] [facility], [facility] [address] [place] [phone] Referral ID Status Reason Start Date Expiration Date Visits V isits Requested Authorized [id number] New Request 2019 1 1 Reason for Visit Reason Onset Date Comments Orders (Non Pre-visit) 2019 preop lab orders Encounter Details Date Type Department Care Team Description 2019 Telephone [facility] - Rani Reyes Orde rs (Non Pre-visit) [facility] RN (preop lab orders) [address] [place] [address] Social History Tobacco Use Types Packs/Day Years [...] this encounter Miscellaneous Notes Telephone Encounter - Rani Reyes RN - 2019 0924 EST PREOP LAB ORDERS documented in this encounter Plan of Treatment Scheduled Orders Name Type Priority Associated Diagnoses Order S chedule COMPLETE BLOOD COUNT AND Lab Routine DUB (dysfunction al Ordered: 2019 DIFFERENTIAL uterine bleeding) PRE-OP BLOOD BANK DRAW Blood Bank Routine DUB (dysfunctional Ordered: 2019 uterine bleeding) MISCELLANEOUS TEST, NON Lab Routine DUB (dysfunctiona l Ordered: 2019 MARCOS uterine bleeding) documented as of this encounter Procedures Procedure Name Priority Date/Time Associated Diagnosis Comme nts HEMOGLOBIN A1C Routine 08/15/2019 7:31 EST DUB (dysfunctional Results for this uterine bleeding) procedure are in the results section . GLUCOSE, SERUM Routine 08/15/2019 7:31 EST DUB (dysfunctional Results for this uterine bleeding) procedure are in the results section . CREATININE Routine 08/15/2019 7:31 EST DUB (dysfunctional Re sults for this uterine bleeding) procedure are in the results section . documented in this encounter Results HEMOGLOBIN A1C (08/15/2019 7:31 EST) Hemoglobin A1c 5.2 4.0 - 6.0 % [facility] Comment: [facility] > or =18 years: ??Increased risk for diabetes (prediabetes): 5.7-6.4% Diabetes: > or =6.5% Therapeutic goals for glycemic control (ADA) Adults: - Goal of therapy: <7.0% HbA1c - Action suggested: >8.0% HbA1c Pediatric patients: - Toddlers and preschoolers: <8.5% (but >7.5%) - School age (6-12 years): <8% - Adolescents and young adults (13-19 years): <7.5% Est Avg Glucose 103 mg/dL [facility] Specimen Blood - Venous blood (substance) Narrative [facility] - 019 13:00 EST Does PT Have a Latex Allergy? YES Performing Organization Address [facility] Phon e Number [facility] [address] LAB CREATININE (08/15/2019 7:31 EST) CREATININE 0.80 0.52 - 1.04 [facility] mg/dL [facility] eGFR >60 [facility] Comment: [facility] Chronic renal impairment is defined as GFR <60 Multiply result by 1.210 for patients . eGFR calculated using the IDMS-traceable MDRD Study Equation. ??(effective 07/06/2014) Specimen Blood - Venous blood (substance) Narrative [facility] - 019 9:23 EST Does PT Have a Latex Allergy? YES Performing Organization Address City/[facility]/ZIP Code Phon e Number [facility] [address] LAB GLUCOSE, SERUM (08/15/2019 7:31 EST) Pathologist Sig nature GLUCOSE - [facility] 99 70 - 100 mg/dL [facility] Specimen Blood - Venous blood (substance) Narrative [facility] - 019 9:23 EST Does PT Have a Latex Allergy? YES Performing Organization Address City/[facility]/ZIP Code Phon e Number [facility] [address] [place] [address] [facility] documented in this encounter Visit Diagnoses Diagnosis DUB (dysfunctional uterine bleeding) - P rimary Other disorder of menstruation and other abnormal bleeding from female genital tract documented in this encounter Care Teams Bank Sales And Service Manager Relationship Specialty Start Date End Date Georgie Stewart APRN PCP - General 07/07/19 [address] [place] [phone] documented as of this encounter
--- OUTSIDE RECORDS SUMMARY | 2022-03-17 00:57 | XMS_ITS | Encounter Summary ---
:[address] [facility] Address [address] [place] [address] Care Team Providers Name Role Phone Jose Hillman MD Primary Care Provider Georgie Stewart APRN Primary Care Provider Encounter Details Date Type Department Care Team Description 06/13/2019 Historical Results [facility] - Flynn Smith MD Only [facility] - Main [place] [address] [facility] [address] [place] [phone] Social History Tobacco Use Types Packs/Day Years [...] Associated Diagnosis Comme nts BACTERIAL CULTURE, Routine 06/13/2019 13:36 Resul ts for this URINE EDT procedure are i n the results section. documented in this encounter Results BACTERIAL CULTURE, URINE (06/13/2019 13:36 EDT) USUAL UROGENITAL [facility] - [facility] CitrateConcentration >100,000 CFU/ML [facility] Specimen Performing Organization Address City/State/ZIP Code Phon e Number [facility] [address] [place] [address] [facility] documented in this encounter Visit Diagnoses Not on filedocumented in this encounter Care Teams Social Security Specialist Relationship Specialty Start Date End Date Jose Hillman MD PCP - General 04/02/09 07/06/19 [address], [place] [phone] Georgie Stewart APRN PCP - General 07/07/19 [address] [place] [phone] documented as of this encounter
--- OUTSIDE RECORDS SUMMARY | 2022-03-17 00:57 | XMS_ITS | Encounter Summary ---
:1985 Author Organization [facility] Address [address] [place] [address] Care Team Providers Name Role Phone Georgie Stewart RUBEN Primary Care Provider [phone] Reason for Visit Reason Onset Date Comments Rash 08/22/2019 Pt had a procedure M onday, this morning she woke up with a rash, like three on the le ft side of her belly. Encounter Details Date Type Department Care Team Description 08/22/2019 Telephone [facility] - Swati Lane, Ra baez (Pt had a [facility] [place] procedure Sunday, this [address] [place] [address] [address] with a rash, like three [phone] [place], [place] on the left kennedy e of [place] [address] belly. ) [phone] (Wo rk) Social History Tobacco Use Types [...] this encounter Miscellaneous Notes Telephone Encounter - Virginia Moore RN - 08/22/2019 0951 EST . elephone Encounter - Virginia Moore RN - 08/22/2019 0947 EST Spoke with pt who had lap. hyst on 08/18/19. Pt states this am she has rash on left side of belly near belly button. Pt states non painful and non itching rash. Pt on ibuprofen for medication. Pt doesn't know of any other causes for rash. Pt denies fever. Pt to try benadryl and baking soda soaks. Pt surgery by Dr. Lane. To Dr Lane for review elephone Encounter - Anushka Reis - 08/22/2019 0844 EST Pt had a procedure Sunday, this morning she woke up with a rash, like three on the left side of her belly. documented in this encounter Plan of Treatment Not on filedocumented as of this encounter Visit Diagnoses Not on filedocumented in this encounter Care Teams Box Estimator Relationship Specialty Start Date End Date Georgie Stewart APRN PCP - General 07/07/[address] [place] [address] documented as of this encounter
--- OUTSIDE RECORDS SUMMARY | 2022-03-17 00:57 | XMS_ITS | Encounter Summary ---
:1985 Author Organization [facility] Address [address] [place] [address] Care Team Providers Name Role Phone Georgie Stewart RUBEN Primary Care Provider [phone] Encounter Details Date Type Department Care Team Description 08/20/2019 Results Only Imaging [facility] - [address], [facility] [place] [address] [facility] [address] [place] [address] [address] [place] [address] (Wo rk) Social History Tobacco [...] Name Priority Date/Time Associated Diagnosis Comme nts US EXTREMITY 08/20/2019 14:29 EST Results for this procedure are i n the results section . documented in this encounter Results US EXTREMITY (08/20/2019 14:29 EST) Specimen Narrative [facility] - 08/20/2019 14:29 EST ? EXAM: ULTRASOUND/DOPPLER VEIN LOWER EXT. ??EX. D/ ([id number]) ? CLINICAL INFORMATION: ? SLLL - Swelling left lower extr. ? INDICATION: SLLL - Swelling left lower extr., post-op TOTAL ? LAPAROSCOPIC HYSTERECTOMY ? TECHNIQUE: Left lower extremity v enous ultrasound was performed. ? Color flow Doppler was obtained. ? Comparison: None. ? Findings: The major venous struct ures of the left lower extremity are ? widely patent. Normal augmentatio n is noted. Normal compression is ? seen. ? Impression: ? 1. No left lower extremity DVT de tected. ? REPORT SIGNED IN OTHER VENDOR SYSTEM 08/20/2019 ?Reported B y: Dar Bolivar MD ? CC: ? Transcribed Date/Time: 08/20/2019 (1429) ? Assistant Manager Retail: ? Printed Date/Time: 08/20/2019 (14 30) ? PAGE 1 ? Barbi d Report ? Procedure Note Dar Bolivar MD - 08/20/2019 EXAM: ULTRASOUND/DOPPLER VEIN LOWER EXT . EX. D/ ([id number]) CLINICAL INFORMATION: SLLL - Swelling left lower extr. INDICATION: SLLL - Swelling left lower extr., post-op TOTAL LAPAROSCOPIC HYSTERECTOMY TECHNIQUE: Left lower extremity venous ultrasound was performed. Color flow Doppler was obtained. Comparison: None. Findings: The major venous structures o f the left lower extremity are widely patent. Normal augmentation is n oted. Normal compression is seen. Impression: 1. No left lower extremity DVT detected . REPORT SIGNED IN OTHER VENDOR SYSTEM 08/20/2019 Reported By: Dar Bolivar MD CC: Transcribed Date/Time: 08/20/2019 (5576 ) Assistant Manager Retail: Printed Date/Time: 08/20/2019 (0648) PAGE 1 Signed Report Performing Organization Address City/State/ZIP Code Phon e Number [facility] documented in this encounter Visit Diagnoses Not on filedocumented in this encounter Care Teams Perinatal Breastfeeding Assistant Relationship Specialty Start Date End Date Georgie Stewart, LAMP SHADE SEWER PCP - General 07/07/[address] [place] [address] documented as of this encounter
--- OUTSIDE RECORDS SUMMARY | 2022-03-17 00:57 | XMS_ITS | Encounter Summary ---
:1985 Author Organization [facility] Address [address] [place] [address] Care Team Providers Name Role Phone Jose Hillman MD Primary Care Provider Georgie Stewart APRN Primary Care Provider [phone] Encounter Details Date Type Department Care Team Description 06/13/2019 Results Only [facility] Flynn Smith MD Lab - Main [place] [address] [address] [place], [place] [address] [phone] Social History Tobacco Use Types Packs/Day Years [...] as of this encounter Plan of Treatment Pending Results Name Type Priority Associated Diagnoses Date/Ti me UA, CHEMICAL AND SEDIMENT Lab Routine 13:30 EDT ANALYSIS (DIPSTICK AND MICROSCOPIC) documented as of this encounter Procedures Procedure Name Priority Date/Time Associated Comments Diagnosis [place] [facility] Routine 06/13/2019 13:46 Results fo r this EDT procedure are i n the results section. COMPLETE BLOOD COUNT Routine 06/13/2019 13:46 Res ults for this WITH DIFFERENTIAL EDT procedure are in (AUTO) the results section. URINE MICROSCOPIC Routine 06/13/2019 13:30 Result s for this EDT procedure are i n the results section. URINE CHEMICAL (DIP) Routine 06/13/2019 13:30 & SEDIMENT (MICRO) EDT WITHOUT REFLEX TO CULTURE documented in this encounter Results (ABNORMAL) COMPLETE BLOOD COUNT WITH DIFFERENTIAL (AUTO) (06/13/2019 13:46 EDT) Pathologist Sig nature ABSOLUTE NEUTROPHIL 3.0 2.2 - 8.85 [facility] COUN - [facility] 10e3/uL [facility] BASO # - [facility] 0.04 0.01 - 0.11 [facility] 10e/uL [facility] BASO % - [facility] 1 0 - 2 % [facility] EOS # - [facility] 0.12 0.03 - 0.61 [facility] 10e3/ul [place] [facility] EOS % - [facility] 2 0 - 5 % [facility] GRAN % - [facility] 54.9 40 - 80 % [facility] HEMATOCRIT - [facility] 40.7 34.9 - 44.4 % [facility] HEMOGLOBIN - [facility] 13.7 11.6 - 15.2 [facility] g/dl [place] [facility] IG# - [facility] 0.03 0 - 0.7 10e3/uL [facility] IG% - [facility] 0.5 0 - 0.9 % [facility] LYMPH # - [facility] 1.6 1.09 - 3.3 [facility] 10e3/ul [place] [facility] LYMPH% - [facility] 29.2 20 - 40 % [facility] MEAN CORPUSCULAR HGB 30.6 26.7 - 33.3 pg [facility] ME D - [facility] CENTER LAB MEAN CORPUSCULAR HGB 33.7 32.1 - 35.9 [facility] MED CONC - [facility] g/dL [place] [facility] MEAN CELL VOLUME - 90.8 81 - 98 fl [facility] MONO # - [facility] 0.7 0.1 - 0.8 [facility] 10e3/uL [place] [facility] MONO% - [facility] 12.5 (H) 0 - 12 % [facility] PLATELET COUNT 243 141 - 377 [facility] 10e3/ul CENTER LAB RED BLOOD COUNT - 4.48 3.86 - 5.04 [facility] 10e3/ul [place] [facility] RED CELL DISTRI WIDTH 12.0 <14.7 % [facility] CENTER LAB WHITE BLOOD COUNT - 5.5 4.0 - 12.4 [facility] 10e3/ul CENTER LAB Specimen Performing Organization Address City/[facility]/ZIP Code Phon e Number [facility] [address] [place] [address] [facility] (06/13/2019 13:46 EDT) Pathologist Sig nature [facility]ASE [facility] 93 <251 U/L [facility] Specimen Performing Organization Address [facility] Code Phon e Number [facility] [address] [place] [address] [facility] URINE MICROSCOPIC (06/13/2019 13:30 EDT) URINE APPEARANCE - Cloudy [facility]AR [facility] URINE BACTERIA - FEW [facility] URINE COLOR - [facility] Red YELLOW [facility] Comment: [facility] Abnormal urine color may interfere with interpretation of the urinalysis reagent test strips. Urinalysis order has been reflexed to Urine Microscopi c due to color interference. URINE RBC - [facility] TNTC rbc/hpf [facility] URCULTIF+? - [facility] Culture Ordered [facility] URINE SQUAMOUS FEW NEG #/hpf [facility] CELLS [facility] UR[facility] WBC - [facility] 5-10 NEG wbc/hpf [facility] Specimen Performing Organization Address City/[facility]/ZIP Code Phon e Number [facility] [address] [place] [address] [facility] documented in this encounter Visit Diagnoses Not on filedocumented in this encounter Care Teams Wash Tank Tender Relationship Specialty Start Date End Date Jose Hillman MD PCP - General 04/02/09 07/06/19 [address] [place] [id number] Georgie Stewart, COCONUT JELLY ROLLER PCP - General 07/07/19 [address] [place] [address] documented as of this encounter
--- OUTSIDE RECORDS SUMMARY | 2022-03-17 00:57 | XMS_ITS | Encounter Summary ---
:1985 Author Organization [facility] Address [address] [place] [address] Care Team Providers Name Role Phone Jose Hillman MD Primary Care Provider Georgie Stewart APRN Primary Care Provider [phone] Encounter Details Date Type Department Care Team Description 06/13/2019 Results Only Imaging [facility] - Flynn Smith MD [facility] [place] Resul ts [address] [facility] [address] [place] [phone] (Wo rk) Social History Tobacco Use Types [...] Name Priority Date/Time Associated Diagnosis Comme nts CT ABDOMEN PELVIS W 06/13/2019 15:14 Resu lts for this WO CONTRAST EDT procedure are i n the results section. documented in this encounter Results CT ABDOMEN PELVIS W WO CONTRAST (06/13/2019 15:14 EDT) Specimen Narrative [facility] - 06/13/2019 15:14 EDT ? EXAM: CAT SCAN/ABDOMEN PELVIS W/WO CONTRA EX. D/ ([id number]) ? CLINICAL INFORMATION: ? INDICATION: Question bladder infe ction.. ? COMPARISON: None. ? TECHNIQUE: Noncontrast and contra st-enhanced CT scan of the abdomen ? and pelvis was performed utilizin g nonionic IV contrast. 100 mL of ? Omnipaque 350 was utilized. ? FINDINGS: ? The lung bases are clear. There a re innumerable low-density lesions ? scattered throughout the liver. A few are consistent with cysts. Most ? are too small to accurately pa cterize and indeterminate. ? Nonemergent follow-up evaluation with MRI of the liver is ? recommended. ? The gallbladder, pancreas, spleen and adrenal glands are normal. The ? kidneys, ureters and urinary blad emilee have normal appearances. ? The uterus and adnexa are unremar kable. The stomach, small bowel and ? colon are unremarkable. No append icitis. ? No fracture or suspicious bone le brett is identified. ? No pathologically enlarged lymph nodes, ascites or other inflammatory ? abnormality is seen. ? IMPRESSION: ? 1. Hepatic cysts and indeterminat e low-density hepatic lesions. ? Nonemergent follow-up evaluation with MRI of the liver is ? recommended. ? 2. Unremarkable kidneys, ureter a nd urinary bladder. ? This report has been flagged for a noncritical result requiring ? follow-up on the iSite PACS findi ngs application, to be tracked by ? the [facility] tracking system. ? REPORT SIGNED IN OTHER VENDOR SYSTEM 06/13/2019 ?Reported B y: Lexx Arias MD ? CC: ? Transcribed Date/Time: 06/13/2019 (1514) ? Web Production Artist: [email or web address] ? Printed Date/Time: 06/13/2019 (15 14) ? PAGE 1 ? Barbi d Report ? Procedure Note Lexx Arias MD - 07/12/2019 EXAM: CAT SCAN/ABDOMEN PELVIS W/WO CONT RA EX. D/ ([id number]) CLINICAL INFORMATION: INDICATION: Question bladder infection. . COMPARISON: None. TECHNIQUE: Noncontrast and contrast-enh anced CT scan of the abdomen and pelvis was performed utilizing yesi onic IV contrast. 100 mL of Omnipaque 350 was utilized. FINDINGS: The lung bases are clear. There are inn umerable low-density lesions scattered throughout the liver. A few a re consistent with cysts. Most are too small to accurately characteriz e and indeterminate. Nonemergent follow-up evaluation with M RI of the liver is recommended. The gallbladder, pancreas, spleen and a drenal glands are normal. The kidneys, ureters and urinary bladder zhang ve normal appearances. The uterus and adnexa are unremarkable. The stomach, small bowel and colon are unremarkable. No appendicitis . No fracture or suspicious bone lesion i s identified. No pathologically enlarged lymph nodes, ascites or other inflammatory abnormality is seen. IMPRESSION: 1. Hepatic cysts and indeterminate low- density hepatic lesions. Nonemergent follow-up evaluation with M RI of the liver is recommended. 2. Unremarkable kidneys, ureter and uri nary bladder. This report has been flagged for a nonc ritical result requiring follow-up on the iSite PACS findings ap plication, to be tracked by the [facility] tracking system. REPORT SIGNED IN OTHER VENDOR SYSTEM 06/13/2019 Reported By: Lexx Arias MD CC: Transcribed Date/Time: 06/13/2019 (5058 ) Web Production Artist: Printed Date/Time: 06/13/2019 (7771) PAGE 1 Signed Report Performing Organization Address City/State/ZIP Code Phon e Number [facility] documented in this encounter Visit Diagnoses Not on filedocumented in this encounter Care Teams Yoke Setter Relationship Specialty Start Date End Date Jose Hillman MD PCP - General 04/02/09 07/06/19 [address] [place] [id number] Georgie Stewart APRN PCP - General 07/07/[address] [place] [phone] documented as of this encounter
--- OUTSIDE RECORDS SUMMARY | 2022-03-17 00:57 | XMS_ITS | Encounter Summary ---
:1985 Author Organization [facility] Address [address] [place] [address] Care Team Providers Name Role Phone Georgie Stewart RUBEN Primary Care Provider [phone] Reason for Visit Reason Comments Follow-up Encounter Details Date Type Department Care Team Description 10/07/2019 Office Visit [facility] - Swati Lane, Luis [facility] (Primary Dx) [address] [place] [address] [facility], [address] [place] [address] Social History Tobacco Use Types Packs/Day Years [...] Sign Reading Time Taken Comments Blood Pressure 108/82 10/07/2019 1024 EST Pulse - - Temperature - - Respiratory Rate 16 10/07/2019 1024 EST Oxygen Saturation - - Inhaled Oxygen Concentration - - Weight 98 kg (216 lb) 10/07/2019 1024 EST Height 160 cm (5' 3) 10/07/2019 1024 EST Body Mass Index 38.26 10/07/2019 1024 EST documented in this encounter Functional Status [...] encounter Progress Notes Swati Lane MD - 10/07/2019 1020 EST HPI: María Elena Mantilla is a 34 y.o. here today for follow up s/p TLH/left salpingectomy/RSO on 08/18/19. Overall doing well since surgery. Appetite, bowel, and bladder function normal. Pain and energy improving little by little. Still some pain in right side which she now attributes to liver but she does state it has improved some since surgery. ROS: Review of Systems Constitutional: Negative. Gastrointestinal: Negative. Genitourinary: Negative. Musculoskeletal: Positive for back pain. 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 Codeine Anaphylaxis ??? Kgccfuq-Awm-Qv-Acetaminophen Anaphylaxis ??? Sulfa (Sulfonamide Antibiotics) Anaphylaxis ??? Aspirin Other reaction(s): unsure of reaction ??? [place] And Derivatives Other reaction(s): rash and hives [...] facility-administered medications for this visit. Objective: BP 108/82 (BP Cuff Location: Right arm, BP Patient Position: Sitting, BP Cuff Sizes: Adult, large) Resp 16 Ht 160 cm (63) Wt 98 kg (216 lb) LMP 06/05/2019 (Approximate) BMI 38.26 kg/m?? Physical Exam General: Pleasant, alert, cooperative Abdomen: soft, non-tender, non-distended, no masses palpated Pelvic: normal external genitalia, vaginal mucosa moist and pink, cuff in tact, no masses on bimanual Skin: warm and dry Back: no CVA tenderness Assessment/Plan: María Elena Mantilla is a 34 y.o. s/p hysterectomy for DUB. Doing well. Diagnoses and all orders for this visit: Post-operative state Other orders - ibuprofen; Take 600 mg by mouth [address] MD Rani Soni RN - 10/07/2019 1020 EST SBIRT Screening 2Chaperone for exam: Pt declined documented in this encounter Plan of Treatment Not on filedocumented as of this encounter Visit Diagnoses Diagnosis Post-operative state - Primary Other postprocedural status documented in this encounter Discontinued Medications Medication Sig Discontinue Reason Start Date End Date omeprazole (PRILOSEC) 20 Take 20 mg by Therapy completed 10/07/2019 mg capsuleIndications: mouth every gastroesophageal reflux morning. disease, heartburn nystatin (MYCOSTATIN) Apply thin layer Therapy completed 08/22/2019 10/07/2019 cream to affected area twice day. documented as of this encounter Historical Medications This list may reflect changes made after this encounter. Medication Sig Dispensed Refills Start Date End Date ibuprofen (MOTRIN) 600 mg Take 600 mg by mouth 0 tablet 3 times daily. added in this encounter Care Teams Director Of Midwifery/Staff Midwife Relationship Specialty Start Date End Date Georgie Stewart APRN PCP - General 07/07/19 [address] [place] [phone] documented as of this encounter
--- OUTSIDE RECORDS SUMMARY | 2022-03-17 00:57 | XMS_ITS | Encounter Summary ---
:1985 Author Organization [facility] Address [address] [place] [address] Care Team Providers Name Role Phone Georgie Stewart RUBEN Primary Care Provider [phone] Encounter Details Date Type Department Care Team Description 08/18/2019 Results Only [facility]- Swati Dominguez MD [phone] [place] [address], [address] [place] [address] (Wo rk) Social History Tobacco Use Types [...] documented as of this encounter Miscellaneous Notes Result QuickNote - Swati Lane MD - 08/18/2019 1504 EST Reviewed with pt. documented in this encounter Plan of Treatment Not on filedocumented as of this encounter Procedures Procedure Name Priority Date/Time Associated Comments Diagnosis HEMOGLOBIN AND Routine 08/18/2019 14:53 Results f or this HEMATOCRIT - CV EST procedure are in the results section. SURGICAL PATHOLOGY Routine 08/18/2019 Results f or this procedure are i n the results section. documented in this encounter Results HEMOGLOBIN AND [place]IT [place] [facility] (08/18/2019 14:53 EST) Pathologist Sig nature HEMATOCRIT - [facility] 36.7 34.9 - 44.4 % [facility] HEMOGLOBIN - [facility] 11.8 11.6 - 15.2 g/dl [facility] Specimen Performing Organization Address City/State/[facility] Code Phon e Number [facility] [address] [place], [place] [id number] [place] [address] LAB SURGICAL PATHOLOGY (08/18/2019) Specimen Narrative [facility] - 019 10:15 EST Name: LILIANA,MARÍA ELENA M ? : 81 ?Age/Sex: 34/F ?Unit#: [id number] ? Loc: SDS ? Status: DEP SDC ?? Reg Date: 08/18/19 ? Pt.Phone Number : ? Specimen: [id number] ? STA TUS: SOUT ?Spec Date:08/18/19 ? Physician Copies: ?Swati Lane MD ?? Tissues: A ?? Uterus other than neoplast ic (UTERUS, CERVIX, BILATERAL TU) ??Georgie Stewart CPT: 83471 ?? Units: ??1 ?FINAL DIAGNOSIS ? UTERUS, CERVIX, BILATERAL FALLOPI AN TUBES, AND RIGHT OVARY, HYSTERECTOMY, ? BILATERAL SALPINGECTOMY ?? RIGHT OOPHORECTOMY; ? - Cervix: Focal acute endocervici tis. ? - Endometrium: ? - Detached fragments of benign endometrial polyp. ? - Inactive endometrium with fo betzy cystic changes and pseudodecidualized ? stroma consistent with exogenous hormonal effect, negative for hyperplasia or ? neoplasia. ? - Myometrium: No pathological fea tures. ? - Serosa: No pathological feature s. ? - Ovary, right: Cystic follicles. ? - Fallopian tubes: ? - Status post tubal ligation. ? - Benign paratubal cysts. ? GROSS DESCRIPTION ? Received in formalin, labeled wit h the patient's name María Elena Ford and ? uterus, right and left tubes, ri ght ovary is a 163-gram uterus with attached ? right ovary and fallopian tube. ? ?The uterus measures 9.2 cm cervix- fundus, 6.5 ? cornu-cornu, and 4.6 cm anterior- posterior. ??The cervix measures 3.7 x 3.3 x ? 3.0 cm in length with a centrally located os measuring 1.2 x 0.4 cm. ??There is ? mucus extruding from the cervical os. ??The right ovary measures 3.8 x 2.1 x 1.9 ? cm. ??The right fallopian tube is disrupted near the distal end and shows ? evidence of prior tubal ligation. ??The tube measures 6.1 cm in total length x ? 0.8 cm in diameter. ??Also receiv ed in the same container are two portions of ? presumably left fallopian tube co nsisting of a detached fimbriated end ? measuring 1.6 x 1.1 x 0.4 cm and the second portion consisting of disrupted ? tube with two cysts. ??The disrup kelly tube measures 3.6 cm in length x 0.6 cm in ? diameter. ??As previously mention ed, there are two cysts which measure 0.8 and ? 1.0 cm in greatest dimension jailene ched to the serosal surface of the tube. ??The ? uterine serosa shows focal areas of surgical defects but is generally smooth ? and glistening. The uterus is ope calista along the anterior-posterior aspect. The ? uterus is serially sectioned reve aling a fleshy slightly hemorrhagic ? endometrium which measures up to 0.3 cm in thickness. The myometrium ranges ? from 1.3 to 2.3 cm in thickness. ??The ovary is bivalved revealing multiple Patient: GLADYS FORDTYRA Jonas ? #[id number] ? (Continued) Specimen: [id number] ? Rec eived: 08/18/19-1300 ?(Continued) ? GROSS DESCRIPTION ?(Continued) ? cortical cysts ranging from 0.1 c m to 0.7 cm in greatest dimension. ??Serial ? sections of the right fallopian t ube reveals a pinpoint lumen. ??Serial sections ? of the left fallopian tube also r eveal a pinpoint lumen. ??Water/Wastewater Engineer ? section sections are submitted as follows: ?1: ?? Anterior cervix and portion of detached endometrium, ?2: ?? Anterior lower uter ine segment, ?3: ?? Anterior endomyomet rium of body, ?4: ?? Anterior endomyomet rium of fundus, ?5: ?? Posterior cervix, ?6: ?? Posterior lower lake rine segment, ?7: ?? Posterior endomyome trium of body, ?8: ?? Posterior endomyome trium of fundus, ?9: ?? Right ovary, ?10-11: ?Right fallopi an tube, ?12-13: ?Left fallopia n tube and cysts in 13. ??PV ?? PREOP DX/CLINICAL HISTORY ?Dysfunctional uterine ble eding Signed ____(signature on file)____ Domenica Gibson Phuong 08/21/19 ?? By the signature above, the attending ph ysician certifies that he/she has personally conducted a gross and/or microscopic exa mination of the described specimens and rendered or confirmed the above diagnosi s. Test Performed by [facility], [address] [place] [address] Automation Control Technician: Yee Hines MD PHD Performing Organization Address City/State/ZIP Code Phon e Number [facility] [address] [place] [address] LAB documented in this encounter Visit Diagnoses Not on filedocumented in this encounter Care Teams Foreign Service Teacher Relationship Specialty Start Date End Date Georgie Stewart APRN PCP - General 07/07/[address] [place] [address] documented as of this encounter
--- OUTSIDE RECORDS SUMMARY | 2022-03-17 00:57 | XMS_ITS | Encounter Summary ---
:1985 Author Organization [facility] Address [address] [place] [address] Care Team Providers Name Role Phone Georgie Stewart RUBEN Primary Care Provider Reason for Visit Reason Onset Date Comments Rash 08/22/2019 had lapro hyst. on M 08/18, Encounter Details Date Type Department Care Team Description 08/22/2019 Telephone [facility] - Swati Lane, (had lapro hyst. [facility] on Saturday 08/18, ) [address] [place] [address] [address], [address] [place] [address] (Wo rk) Social History Tobacco [...] Sig Dispensed Refills Start Date End Date nystatin (MYCOSTATIN) Apply thin layer to 1 Tube 0 08/2210/07/2019 cream affected area twice day. documented in this encounter Miscellaneous Notes Telephone Encounter - Swati Lane MD - 08/22/2019 1740 EST Spoke with pt. She now describes itching and redness in skin fold under belly - I think she is referring to under the pannus. No s/s systemic allergy or infection. Will try topical nystatin for presumed cutaneous candidiasis as she would be at risk for that. If this does not seem to help or she feels it continues to get worse over the weekend she can be evaluated at urgent care. elephone Encounter - Virginia Moore RN - 08/22/2019 1642 EST Spoke with pt who is post hyst from 08/18/19 (this Sunday). Pt states she spoke with Dr. Lane earlier regarding rash on her stomach. Pt has taken benadryl this am and then about an hour ago. Pt without relief. Pt states rash is itching and warm and feels it is worse. Pt denies fever and feels pain isunder control with ibuprofen and dilaudid. Pt has been on ibuprofen in the past without problems. Ptis on an allergy medication that she has been on for about a year. Pt is taking dilaudid for the first time post surgery. Pt advised to md for review. elephone Encounter - Kelly Weaver - 08/22/2019 1634 EST had lapro hyst. on Saturday 08/18, [place] now itchy and red , with rash, warm and spreading did try benydryl documented in this encounter Plan of Treatment Not on filedocumented as of this encounter Visit Diagnoses Not on filedocumented in this encounter Care Teams Test Preparation Tutor Relationship Specialty Start Date End Date Georgie Stewart APRN PCP - General 07/07/[address] [place] [address] documented as of this encounter
--- OUTSIDE RECORDS SUMMARY | 2022-03-17 00:57 | XMS_ITS | Encounter Summary ---
:1985 Author Organization [facility] Address [address] [place] [address] Care Team Providers Name Role Phone Jose Hillman MD Primary Care Provider Georgie Stewart APRN Primary Care Provider [phone] Encounter Details Date Type Department Care Team Description 06/30/2019 Results Only [facility] Swati Lane MD Lab - Main [address], [address] [place] [address] [place] [phone] (Wo rk) Social History Tobacco Use Types [...] Procedure Name Priority Date/Time Associated Comments Diagnosis CG SCREEN - [facility] Routine 06/30/2019 11:22 Resul ts for this EDT procedure are i n the results section. COMPLETE BLOOD COUNT Routine 06/30/2019 11:22 Res ults for this WITH DIFFERENTIAL EDT procedure are in (AUTO) the results section. TYPE AND SCREEN Routine 06/30/2019 11:22 Results for this EDT procedure are i n the results section. documented in this encounter Results TYPE AND SCREEN (06/30/2019 11:22 EDT) Pathologist Sig nature BLOOD TYPE - [facility] O Positive [facility] Antibody Screen NEGATIVE [facility] Specimen Expires: 07-21-19 [id number] [facility] Specimen Narrative [facility] - 11:12 EDT Does PT Have a Latex Allergy? YES IS THIS A PREOPERATIVE PATIENT? N Performing Organization Address [facility] Phon e Number [facility] [address] [place] [address] LAB BHCG SCREEN - [facility] (06/30/2019 11:22 EDT) Pathologist Sig nature BHCG SCREEN - [facility] NEG [facility] Specimen Narrative [facility] - 11:43 EDT Does PT Have a Latex Allergy? YES Enter/Edit CPT and ICD codes? N Performing Organization Address [facility] Phon e Number [facility] [address] [place] [address] LAB COMPLETE BLOOD COUNT WITH DIFFERENTIAL (AUTO) (06/30/2019 11:22 EDT) Pathologist Sig nature ABSOLUTE NEUTROPHIL 4.3 2.2 - 8.85 [facility] COUN - [facility] 10e3/uL CENTER LAB BASO # - [facility] 0.05 0.01 - 0.11 [facility] 10e/uL [facility]ENTER LAB BASO % - [facility] 1 0 - 2 % [facility] EOS # - [facility] 0.16 0.03 - 0.61 [facility] 10e3/ul CENTER LAB EOS % - [facility] 2 0 - 5 % [facility] GRAN % - [facility] 58.7 40 - 80 % [facility] HEMATOCRIT - [facility] 38.3 34.9 - 44.4 % [facility] HEMOGLOBIN - [facility] 12.6 11.6 - 15.2 g/dl [facility] IG# - CV 0.02 0 - 0.7 10e3/uL [facility] IG% - [facility] 0.3 0 - 0.9 % [facility] LYMPH # - [facility] 2.3 1.09 - 3.3 [facility] 10e3/ul [place] [facility] LYMPH% - [facility] 31.7 20 - 40 % [facility] MEAN CORPUSCULAR HGB - 30.6 26.7 - 33.3 pg [facility] MEAN CORPUSCULAR HGB 32.9 32.1 - 35.9 g/dL [facility] CONC [facility] CENTER LAB MEAN CELL VOLUME - 93.0 81 - 98 fl [facility] MONO # - [facility] 0.5 0.1 - 0.8 [facility] 10e3/uL [facility] MONO% - [facility] 6.4 0 - 12 % [facility] PLATELET COUNT 331 141 - 377 [facility] 10e3/[facility] LAB RED BLOOD COUNT - [facility] 4.12 3.86 - 5.04 [facility] ME D 10e3/ul [place] [facility] RED CELL DISTRI WIDTH 12.1 <14.7 % [facility] WHITE BLOOD COUNT - 7.4 4.0 - 12.4 [place] [id number]/[facility] LAB Specimen Narrative [facility] - 019 11:32 EDT Does PT Have a Latex Allergy? YES Performing Organization Address City/State/ZIP Code Phon e Number [facility] [address] [place] [address] [facility] documented in this encounter Visit Diagnoses Not on filedocumented in this encounter Care Teams Signs And Displays Sales Representative Relationship Specialty Start Date End Date Jose Hillman MD PCP - General 04/02/09 07/06/19 [address] [place] [phone] Georgie Stewart APRN PCP - General 07/07/19 [address] [place] [phone] documented as of this encounter
--- OUTSIDE RECORDS SUMMARY | 2022-03-17 00:57 | XMS_ITS | Encounter Summary ---
:1985 Author Organization [facility] Address [address] [place] [address] Care Team Providers Name Role Phone Georgie Stewart RUBEN Primary Care Provider [phone] Encounter Details Date Type Department Care Team Description 08/19/2019 Results Only [facility]- Swati Dominguez MD [phone] [place] [address], [address] [place] [address] (Wo rk) Social History [...] Date/Time Associated Comments Diagnosis URINALYSIS/COMPLETE - Routine 08/19/2019 12:04 Re sults for this [facility] EST procedure are i n the results section. COMPLETE BLOOD COUNT Routine 08/19/2019 2:20 Resu lts for this WITH DIFFERENTIAL EST procedure are in (AUTO) the results section. BASIC METABOLIC PANEL Routine 08/19/2019 2:20 Res ults for this (BMP) EST procedure are i n the results section. documented in this encounter Results URINALYSIS/COMPLETE - [facility] (08/19/2019 12:04 EST) URINE APPEARANCE - Cloudy CLEAR [facility] URINE BACTERIA - MANY [facility] URINE BILIRUBIN - Negative NEGATIVE [facility] URINE BLOOD - [facility] 3+ NEG [facility] URINE COLOR - [facility] Yellow YELLOW [facility] URINE GLUCOSE - Negative NEGATIVE [facility] URINE KETONE - [facility] Negative NEGATIVE [facility] URINE [place] [facility]ER[facility] 3+ NEG [facility] URINE NITRITE - Negative NEG [facility] URINE PH - [facility] 7.0 4.0 - 8.0 [facility] URINE PROTEIN - Negative NEG [facility] URINE RBC - [facility] TNTC rbc[facility]hpf [facility] URCULTIF+? - [facility] Contaminated [facility] Comment: [facility] Specimen contaminated. Please recollect a clean catch sample if a culture is indicated. URINE SPECIFIC <=1.005 1.001 - 1.035 [facility] GRAVITY - [facility] LAB URINE SQUAMOUS TNTC NEG #/hpf [facility] URINE UROBILINOGEN 0.2 0.2 - 1.0 [facility] - [facility] URINE WBC - [facility] 5-10 NEG wbc/hpf [facility] Specimen Narrative [facility] - 019 12:57 EST Does PT Have a Latex Allergy? YES Performing Organization Address City/[facility]/ZIP Code Phon e Number [facility] [address] LAB (ABNORMAL) BASIC METABOLIC PANEL (BMP) (08/19/2019 2:20 EST) BUN - [facility] 9 (L) 10 - 26 mg/dL [facility] CALCIUM - [facility] 8.6 8.5 - 10.5 [facility] mg/dL [facility] Chloride 107 96 - 110 [facility] mmol/L [facility] CO2 Total 22 22 - 32 mEq/L [facility] CREATININE 0.77 0.52 - 1.04 [facility] mg/dL [facility] eGFR >60 [facility] Comment: [facility] Chronic renal impairment is defined as GFR <60 Multiply result by 1.210 for patients . eGFR calculated using the IDMS-traceable MDRD Study Equation. ??(effective 07/06/2014) Anion Gap 9 0 - 18 [facility] GLUCOSE - [facility] 123 (H) 70 - 100 mg/dL [facility] Potassium 3.4 (L) 3.5 - 5.0 [facility] mEq/L [facility] Sodium 138 136 - 145 [facility] mEq/L [facility] Specimen Performing Organization Address City/[facility] Code Phon e Number [facility] [address] LAB (ABNORMAL) COMPLETE BLOOD COUNT WITH DIFFERENTIAL (AUTO) (08/19/2019 2:20 EST) Pathologist Sig nature ABSOLUTE NEUTROPHIL 6.2 2.2 - 8.85 [facility] COUN - [facility] 10e3/uL CENTER LAB BASO # - [facility] 0.02 0.01 - 0.11 [facility] 10e/uL [facility] LAB BASO % - [facility] 0 0 - 2 % [facility] EOS # - [facility] 0.06 0.03 - 0.61 [facility] 10e3/ul CENTER LAB EOS % - [facility] 1 0 - 5 % [facility] GRAN % - [facility] 68.1 40 - 80 % [facility] HEMATOCRIT - [facility] 33.0 (L) 34.9 - 44.4 % [facility] HEMOGLOBIN - [facility] 10.6 (L) 11.6 - 15.2 [facility] g/dl CENTER LAB IG# - [facility] 0.04 0 - 0.7 10e3/uL [facility] IG% - [facility] 0.4 0 - 0.9 % [facility] LYMPH # - [facility] 1.9 1.09 - 3.3 [facility] 10e3/ul [place] [facility] LYMPH% - [facility] 21.3 20 - 40 % [facility] MEAN CORPUSCULAR HGB 28.4 26.7 - 33.3 pg [facility] ME D - [facility] CENTER LAB MEAN CORPUSCULAR HGB 32.1 32.1 - 35.9 [facility] CONC - [facility] g/dL CENTER LAB MEAN CELL VOLUME - 88.5 81 - [address] [facility] LAB MONO # - [facility] 0.8 0.1 - 0.8 [facility] 10e3/uL [place] [facility] MONO% - [facility] 9.3 0 - 12 % [facility] PLATELET COUNT 264 141 - 377 [facility] 10e3/ul [place] [facility] RED BLOOD COUNT - 3.73 (L) 3.86 - 5.04 [facility] 10e3/ul [place] [facility] RED CELL DISTRI WIDTH 12.3 <14.7 % [facility] WHITE BLOOD COUNT - 9.0 4.0 - 12.4 [facility] 10e3/ul [place] [facility] Specimen Performing Organization Address City/State/ZIP Code Phon e Number [facility] [address] [place] [address] [facility] documented in this encounter Visit Diagnoses Not on filedocumented in this encounter Care Teams City Comptroller Relationship Specialty Start Date End Date Georgie Stewart APRN PCP - General 07/07/19 [address] [place] [phone] documented as of this encounter
--- OUTSIDE RECORDS SUMMARY | 2022-03-17 00:57 | XMS_ITS | Encounter Summary ---
:1985 Author Organization [facility] Address [address] [place] [address] Care Team Providers Name Role Phone Jose Hillman MD Primary Care Provider Georgie Stewart APRN Primary Care Provider [phone] Encounter Details Date Type Department Care Team Description 07/01/2019 Results Only [facility] - [facility] [place] Swati Lane MD Lab - Main [address], [address] [place] [address] [place] [id number] (Wo rk) Social History Tobacco Use Types [...] Name Priority Date/Time Associated Diagnosis Comme nts SURGICAL PATHOLOGY Routine 07/01/2019 Results f or this procedure are i n the results section . documented in this encounter Results SURGICAL PATHOLOGY (07/01/2019) Specimen Narrative [facility] - 019 16:42 EDT Name: MARÍA ELENA FORD ? : [birth year] ?Age/Sex: 33/F ?Unit#: [id number] ? Loc: SDS ? Status: DEP SDC ?? Reg Date: 07/01/19 ? Pt.Phone Number : ? Specimen: [id number] ? SIVAN ROSAS: KAYKAY ?Spec Date:07/01/19 ? Physician Copies: ?Swati Lane MD ?? Tissues: A ?? Endometrial curettings ? Georgie Stewart CPT: 42098 ?? Units: ??1 ? 07896 ? 1 ?FINAL DIAGNOSIS ? ENDOMETRIUM, CURETTAGE; ? - Inactive endometrium with beltran es that favor chronic endometritis, present ? in a background of exogenous horm one effect, glandular breakdown, and stromal ? breakdown. ??SEE COMMENT. ? - Negative for hyperplasia, atypi a, and malignancy. ?COMMENT ? The tissue sections show numerous fragm ents of inactive endometrium with exogenous hormone related changes, glan dular and stromal breakdown, and areas of mixed acute and chronic inflammation including numerous lymphocytes, scattered neutrophils, scattered eosino phils, and rare plasma cells. ??The presence of eosinophils and plasma cell s favor an underlying chronic endometritis over simple breakdown rela kelly changes in the setting of exogenous hormones. Clinical correlation is sugge sted. ?? Immunohistochemical staining was perfor med on this case to further evaluate for the presence of plasma cells (staining performed on tissue block 1). ??Positive controls stained appropriately. ?? Antibody Clone ? Result CD138 (MI15, Leica) ?Highlights rare scattered plasma ?cells in endometrial stroma ?? NOTE: ??One or more of the reagents us ed in immunohistochemical testing in this case may not have been cleared or appro imelda by the U.S. Food and Drug Administration (FDA). ??The FDA has det ermined that such clearance or approval is not necessary. ??These tests are use d for clinical purposes. ??They should not be regarded as investigational or for r esearch. ??These reagents' performance characteristics have been determined by [facility] and/or by the referring laboratory. ??The posi tive and negative controls worked appropriately. If immunoperoxidase rome lucio has been performed on alcohol fixed cytology specimens, which has not been fully validated, the assays should be interpreted with caution and correlated with clinical data. ??This laboratory is certified under the Clinical Laboratory Improvement Amendments of 1987 Patient: MARÍA ELENA FORD ? #[id number] ? (Continued) Specimen: [id number] ? Rec eived: 07/01/19 ?(Continued) ?COMMENT ? (Continued) (CLIA-88) as qualified to perform high complexity clinical laboratory testing. ? GROSS DESCRIPTION ? Received in formalin in a contain er labeled Jose Rafael, María Elena and endometrial ? curettings are two bloody Telfa pads with multiple fragments of ? hemorrhagic-appearing mucosal tis lauro aggregating to 2.8 x 1.4 x 0.6 cm. ??The ? specimen is entirely submitted in cassettes A1 and A2. ??MS ?? PREOP DX/CLINICAL HISTORY ?DYSFUNCTIONAL UTERINE BLE ERICA Signed ____(signature on file)____ Jaun Botello 07/04/19 ? By the signature above, the attending ph ysician certifies that he/she has personally conducted a gross and/or microscopic exa mination of the described specimens and rendered or confirmed the above diagnosi s. Test Performed by [facility], [address] [place] [address] Wet Chemistry Analyst: Yee Hines MD PHD Performing Organization Address City/State/ZIP Code Phon e Number [facility] [address] [place] [address] LAB documented in this encounter Visit Diagnoses Not on filedocumented in this encounter Care Teams Resilient Tile Installer Relationship Specialty Start Date End Date Jose Hillman MD PCP - General 04/02/09 07/06/[address] [place] [address] Georgie Stewart APRN PCP - General 07/07/19 [address] [place] [address] documented as of this encounter
--- OUTSIDE RECORDS SUMMARY | 2022-03-17 00:57 | XMS_ITS | Encounter Summary ---
:1985 Author Organization [facility] Address [address] [place] [address] Care Team Providers Name Role Phone Jose Hillman MD Primary Care Provider Georgie Stewart APRN Primary Care Provider [phone] Encounter Details Date Type Department Care Team Description 06/13/2019 Results Only [facility] Flynn Smith MD Lab - Main [place] [address] [facility] [address] [place] [address] [place], [place] [id number] [phone] Social History Tobacco Use Types Packs/Day Years [...] Procedure Name Priority Date/Time Associated Comments Diagnosis COMPREHENSIVE Routine 06/13/2019 13:46 Results fo r this METABOLIC PANEL (CMP) EDT proced ure are in the results section. documented in this encounter Results (ABNORMAL) COMPREHENSIVE METABOLIC PANEL (CMP) (06/13/2019 13:46 EDT) ALBUMIN - [facility] 4.0 3.4 - 4.9 [facility] g/dL [facility] ALKALINE 61 38 - 126 U/L [facility] PHOSPHATASE - [facility] BILIRUBIN TOTAL 0.6 0.2 - 1.3 [facility] mg/dL [facility] BUN - [facility] 9 (L) 10 - 26 mg/dL [facility] CALCIUM - [facility] 9.1 8.5 - 10.5 [facility] mg/dL [facility] Chloride 110 96 - 110 [facility] mmol/L [facility] CO2 Total 20 (L) 22 - 32 mEq/L [facility] CREATININE 0.74 0.52 - 1.04 [facility] mg/dL [facility] eGFR >60 [facility] Comment: [facility] Chronic renal impairment is defined as GFR <60 Multiply result by 1.210 for patients . eGFR calculated using the IDMS-traceable MDRD Study Equation. ??(effective 07/06/2014) Anion Gap 12 0 - 18 [facility] GLUCOSE - [facility] 105 (H) 70 - 100 [facility] mg/dL [facility] Potassium 3.5 3.5 - 5.0 [facility] mEq/L [facility] Sodium 142 136 - 145 [facility] mEq/L [facility] TOTAL PROTEIN - 7.2 6.2 - 8.2 [facility] gm/dL [facility] SGOT/AST - [facility] 27 14 - 36 U/L [facility] SGPT/ALT - [facility] 37 9 - 52 U/L [facility] Specimen Performing Organization Address City/State/ZIP Code Phon e Number [facility] [address] [place], [place] [id number] [place] [address] LAB documented in this encounter Visit Diagnoses Not on filedocumented in this encounter Care Teams Sales Ambassador Relationship Specialty Start Date End Date Jose Hillman MD PCP - General 04/02/09 07/06/[address] [place] [address] Georgie Stewart APRN PCP - General 07/07/[address] [place] [address] documented as of this encounter
--- OUTSIDE RECORDS SUMMARY | 2022-03-17 00:57 | XMS_ITS | Encounter Summary ---
:1985 Author Organization [facility] Address [address] [place] [address] Care Team Providers Name Role Phone Georgie Stewart RUBEN Primary Care Provider [phone] Reason for Visit Reason Onset Date Comments Other 07/14/2019 surgery date? Encounter Details Date Type Department Care Team Description 07/14/2019 Telephone [facility] - [address], Ot her (surgery date? ) [facility] [address] [facility] [address] [place] [address] [address] [place] [address] (Wo rk) Social History Tobacco [...] on file documented as of this encounter Miscellaneous Notes Telephone Encounter - Cyndee Magdaleno - 07/21/2019 0952 EST [phone] - maría elena wants to know when her surgery is scheduled please documented in this encounter Plan of Treatment Not on filedocumented as of this encounter Visit Diagnoses Not on filedocumented in this encounter Care Teams Sales Account Specialist Relationship Specialty Start Date End Date Georgie Stewart APRN PCP - General 07/07/[address] [place] [place] [address] documented as of this encounter
--- OUTSIDE RECORDS SUMMARY | 2022-03-17 00:58 | XMS_ITS | Encounter Summary ---
:1985 Author Organization [facility] Address [address] [place] [address] Care Team Providers Name Role Phone Unavailable Primary Care Provider Unavailable Encounter Details Date Type Department Care Team Description 09/22/2002 Hospital Encounter [facility] - Abner Royal MD [address] [place], [place] [address] Other Unknown, Provider, [address] [place], [place] [address] Social History Tobacco Use Types Packs/Day Years [...] on file documented as of this encounter Discharge Disposition Disposition Code Departure Means Destination Auto Discharge documented in this encounter Plan of Treatment Not on filedocumented as of this encounter Procedures Procedure Name Priority Date/Time Associated Diagnosis Comme nts CYTOPATHOLOGY Routine 09/22/2002 0:00 EST Results for this procedure are i n the results section . documented in this encounter Results CYTOPATHOLOGY (09/22/2002 0:00 EST) Pathology Report: CYTOPATHOLOGY REPORT MARÍA ELENA LAU Reports generated via electronic interface contain stanley ginal data; however they are lacking the format of the original re port. Caution should be taken when reading/interpreting unfo rmatted reports. Name: ? MARÍA ELENA FORD ? Accession #: ? [id number] : ? 1985 (Age: 17) ??F ?Collect Date: ? 09/04 Location: ? [facility] ? Receive Date : ? 09/24/2002 Provider: ?ABNER ROYAL MD Copy to: ? Specimen/Source: ?ThinPrep Pap Test, Cervix Last Menstrual Period: ? 06/04 Menstrual/ Status: ? SPECIMEN ADEQUACY ? Satisfactory for Evaluation - transformation zone component present GENERAL CATEGORIZATION ? Negative for Intraepithelial Lesion or Malignan cy ? Document reviewed and electronically signed by: ? ANICETO Hsieh(ASCP) ? Report Date: ??09/25/2002 13:31 End of Report Specimen Performing Organization Address City/State/ZIP Code Phon e Number [facility] [address] [place] [address] SERVICES [facility] [address] [place] [address] documented in this encounter Visit Diagnoses Not on filedocumented in this encounter
--- OUTSIDE RECORDS SUMMARY | 2022-03-17 00:58 | XMS_ITS | Encounter Summary ---
:1985 Author Organization [facility] Address [address] [place] [address] Care Team Providers Name Role Phone Jose Hillman MD Primary Care Provider Aric Hurley MD Primary Care Provider Unavailable Encounter Details Date Type Department Care Team Description 11/29/2006 Results Only [facility] - Fr yue Royal MD Maple conversion [id number] [place] [id number] [phone] Social History Tobacco Use Types Packs/Day Years [...] Date/Time Associated Diagnosis Comme nts CYTOPATHOLOGY Routine 11/29/2006 0:00 EDT Results for this procedure are i n the results section . documented in this encounter Results CYTOPATHOLOGY (11/29/2006 0:00 EDT) Pathology Report: CYTOPATHOLOGY REPORT [facility] Reports generated via electronic interface contain stanley ginal data; however they are lacking the format of the original re port. Caution should be taken when reading/interpreting unfo rmatted reports. Name: ? MARÍA ELENA FORD ? Accession #: ? [id number] : ? 1985 (Age: 21) ??F ?Collect Date: ? 11/02 Location: ? [facility] ? Receive Date : ? 11/30/2006 Provider: ?MACKENZIE ROYAL MD Copy to: ? Specimen/Source: ? ThinPrep Pap Test, Cervix/Endocervix, processed on One Touch EMR ThinPrep Imaging System, with manual evaluation Last Menstrual Period: ? 11/19/06 Menstrual/ Status: ? Post Other: ? HPVA - HPV testing requested if ASC-US on the current ThinPrep Pap test. ? SPECIMEN ADEQUACY ? Satisfactory for Evaluation - transformation zone component present GENERAL CATEGORIZATION ? Negative for Intraepithelial Lesion or Malignan cy ? Document reviewed and electronically signed by: ? KATHERINE Dey(ASCP) ? Report Date: ??12/04/2006 11:10 End of Report Specimen Performing Organization Address City/State/ZIP Code Phon e Number [facility] [address] [place] [address] SERVICES [facility] [address] [place] [address] documented in this encounter Visit Diagnoses Not on filedocumented in this encounter Care Teams Art Objects Salesperson Relationship Specialty Start Date End Date Jose Hillman MD PCP - General 04/02/09 07/06/[address] [place] [address] Aric Hurley MD PCP - General 01/13/0902/06 documented as of this encounter
--- OUTSIDE RECORDS SUMMARY | 2022-03-17 00:58 | XMS_ITS | Encounter Summary ---
:1985 Author Organization [facility] Address [address] [place] [address] Care Team Providers Name Role Phone Jose Hillman MD Primary Care Provider Encounter Details Date Type Department Care Team Description 08/11/2010 Results Only [facility] Abner Anand MD Laboratory Services - [address] [place] [address] [address] [facility] [place], [place] [id number] [phone] Social History Tobacco Use Types Packs/Day Years [...] Date/Time Associated Diagnosis Comme nts CYTOPATHOLOGY Routine 08/11/2010 0:00 EST Results for this procedure are i n the results section . documented in this encounter Results CYTOPATHOLOGY (08/11/2010 0:00 EST) Pathology Report: CYTOPATHOLOGY REPORT ? [facility]LENA MORALES [facility] ? LAB Reports generated via electr onic interface contain original data; ? however they are lacking the format of the original report. ? Caution should be taken when reading/interpreting unformatted reports. ? Name: ? MARÍA ELENA FORD ? Accession #: ? [id number] ? : ? 1985 (Age: 25) ??F ?Collect Date: ? 08/11/2010 ? Location: ? [facility] ? Receive Date: ? 08/12/2010 ? Provider: ?ABNER J ROS SMAN MD ? Copy to: ? Specimen/Source: ? Pap Test, Cervix/Endocervix, ThinPrep Imaging System ? with manual evaluation ? Last Menstrual Period: ? Menstrual/ Status: ? Amenorrhea: x 5 months ? Hormonal/Contraceptive Statu s: ? Yes: BTF 09 ? SPECIMEN ADEQUACY ? Satisfactory for Eval uation ? - transformation zone compon ent present ? - scant squamous epithelial component ? GENERAL CATEGORIZATION ? Negative for Intraepi thelial Lesion or Malignancy ? Document reviewed and electr onically signed by: ? Kylie Hofflogg, [place](ASCP) ? Report Date: ??12/15/ 2010 09:50 ? End of Report ? Specimen Performing Organization Address City/[facility]/ZIP Code Phon e Number [facility] [address] [place] [address] [facility] [address] [place] [address] documented in this encounter Visit Diagnoses Not on filedocumented in this encounter Care Teams Multimedia Services Manager Relationship Specialty Start Date End Date Jose Hillman MD PCP - General 04/02/09 07/06/19 [address] [place] [address] documented as of this encounter
--- OUTSIDE RECORDS SUMMARY | 2022-03-17 00:58 | XMS_ITS | Encounter Summary ---
:1985 Author Organization [facility] Address [address] [place] [address] Care Team Providers Name Role Phone Jose Hillman MD Primary Care Provider Encounter Details Date Type Department Care Team Description 09/30/2018 Historical Results [facility] - [address], Only [facility] Radiology Resul ts [address] [facility] [address] [place] [address] [address] [place] [address] Social History Tobacco Use Types [...] Name Priority Date/Time Associated Comments Diagnosis US BREAST LIMITED 09/30/2018 11:55 Result s for this UNILATERAL EST procedure are i n the results section. MA BREAST DIAGNOSTIC 09/30/2018 11:55 Res ults for this JESUS RIGHT EST procedure are i n the results section. documented in this encounter Results US BREAST LIMITED UNILATERAL (09/30/2018 11:55 EST) Specimen Narrative [facility] RADIOLOGY - 09/30/2018 11:55 EST ? EXAM: ULTRASOUND/UNILATERAL BREAST LIMITE EX. D/ (0926) ? CLINICAL INFORMATION: ? RIGHT BREAST SKIN LESION ??N64.9 ? UNILATERAL BREAST LIMITED, MAMMO RIGHT DX W JESUS ? SIGNS AND SYMPTOMS/COMMENTS: ??RI GHT BREAST SKIN LESION ??N64.9 ? COMPARISONS: None. This is a base line examination. ? FINDINGS: ? RIGHT BREAST MAMMOGRAPHY: Full fi eld digital whole breast 2D (C-view) ? and 3D ML and spot compression CC and MLO views of the right breast ? were obtained. CAD technology was utilized. ? The breast tissue is of scattered density. ??A triangular marker was ? placed over the lower right breas t to denote the area of palpable ? concern. There is a small asymmet ry that localizes to the skin in the ? area of palpable concern. No arch itectural distortion or suspicious ? microcalcification was detected. Note is made of a peripherally ? calcified oval cyst in the outer upper right breast. ? RIGHT BREAST ULTRASOUND: The lowe r right breast was scanned targeting ? the area of clinical concern at 7 o'clock, 8 cm in the nipple. The ? outer right breast was also scann ed at the location of the ? mammographic or cyst. The retroar eolar breast was scanned ? circumferentially. ? At the 7 o'clock position, 8 cm t he nipple, there is an irregular ? hypoechoic lesion completely with in the dermis that communicates with ? the skin. The surrounding skin is slightly thickened and hyperemic. ? The lesion measures 7 mm in maxim al dimension. Findings are ? consistent with a epidermal inclu brett cyst or sebaceous cyst. ? At the 9 o'clock position, 6 cm f rom the nipple, there is a 1.0-cm ? cyst with a small amount of inter nal debris. This corresponds with ? the mammographic peripherally betzy cified oil cyst. ? The retroareolar right breast was scanned circumferentially. ??No ? suspicious sonographic abnormalit y was detected. ? Please note that the contralatera l left breast was not imaged at the ? request of the ordering provider. ? RIGHT BREAST IMPRESSION: Benign. ? 1. A 7-mm hypoechoic lesion compl etely within the dermis that ? communicates with the skin at the site of palpable concern in the ? lower right breast is compatible with an epidermal inclusion cyst or ? sebaceous cyst. The adjacent skin appears slightly inflamed. ? Recommend clinical follow-up. ? 2. A benign oil cyst was incident ally noted in the outer right ? breast. ? PAGE 1 ? Barbi d Report ? (CONTINUED) ? 3. The patient describes right br east nipple discharge. Upon further ? questioning, she was unable to co mpletely characterize this ? discharge. She was unable to dete rmine if is bilateral or ? spontaneous. She was also unable to characterize the number of duct ? orifices from which the discharge arose. She believes the discharge ? was clear to slightly milky and d enies bloody tinged discharge. No ? mammographic or sonographic abnor mality was identified to explain the ? patient's discharge. Clinical fol low-up is recommended. If there are ? features of pathologic nipple dis charge, MRI may be indicated. ? RECOMMENDATION: Recommend annual bilateral screening mammography to ? begin at age 40. Recommend clinic al follow-up for the inflamed ? skin-based lesion described. Also , recommend clinical follow-up to ? further characterize the patient' s reported nipple discharge. If ? there are features of pathologic discharge, MRI may be indicated. ? FINAL ASSESSMENT: ??DIAGNOSTIC RI GHT BREAST MAMMOGRAM/ULTRASOUND - ? BI-RADS Category 2 - Benign findi ngs. ? Dr David Nguyen discussed the fi ndings and recommendations directly ? with the patient at the time of t he examination.. ? These results will be communicate d to your patient via a lay letter ? from Radiology. ??If any addition al imaging is needed we will contact ? your patient directly. ? REPORT SIGNED IN OTHER VENDOR SYSTEM 09/30/2018 ?Reported B y: David Nguyen MD ? CC: ? Transcribed Date/Time: 09/30/2018 (1155) ? Putty Remover: ? Printed Date/Time: 02/23/2019 (12 17) ? PAGE 2 ? Barbi d Report ? Procedure Note David Nguyen MD - 07/10/2019 EXAM: ULTRASOUND/UNILATERAL BREAST LIMI TE EX. D/ (0926) CLINICAL INFORMATION: RIGHT BREAST SKIN LESION N64.9 UNILATERAL BREAST LIMITED, MAMMO RIGHT DX W JESUS SIGNS AND SYMPTOMS/COMMENTS: RIGHT TINO ST SKIN LESION N64.9 COMPARISONS: None. This is a baseline e xamination. FINDINGS: RIGHT BREAST MAMMOGRAPHY: Full field di gital whole breast 2D (C-view) and 3D ML and spot compression CC and M LO views of the right breast were obtained. CAD technology was Beeminder. The breast tissue is of scattered densi ty. A triangular marker was placed over the lower right breast to d enote the area of palpable concern. There is a small asymmetry tracey t localizes to the skin in the area of palpable concern. No architectu ral distortion or suspicious microcalcification was detected. Note i s made of a peripherally calcified oval cyst in the outer upper right breast. RIGHT BREAST ULTRASOUND: The lower righ t breast was scanned targeting the area of clinical concern at 7 o'mesha ck, 8 cm in the nipple. The outer right breast was also scanned at the location of the mammographic or cyst. The retroareolar breast was scanned circumferentially. At the 7 o'clock position, 8 cm the nip ple, there is an irregular hypoechoic lesion completely within the dermis that communicates with the skin. The surrounding skin is sligh tly thickened and hyperemic. The lesion measures 7 mm in maximal dim ension. Findings are consistent with a epidermal inclusion c yst or sebaceous cyst. At the 9 o'clock position, 6 cm from th e nipple, there is a 1.0-cm cyst with a small amount of internal de bris. This corresponds with the mammographic peripherally calcified oil cyst. The retroareolar right breast was scann ed circumferentially. No suspicious sonographic abnormality was detected. Please note that the contralateral left breast was not imaged at the request of the ordering provider. RIGHT BREAST IMPRESSION: Benign. 1. A 7-mm hypoechoic lesion completely within the dermis that communicates with the skin at the site of palpable concern in the lower right breast is compatible with a n epidermal inclusion cyst or sebaceous cyst. The adjacent skin appea rs slightly inflamed. Recommend clinical follow-up. 2. A benign oil cyst was incidentally n oted in the outer right breast. PAGE 1 Signed Report (CONTINUED) 3. The patient describes right breast n ipple discharge. Upon further questioning, she was unable to complete ly characterize this discharge. She was unable to determine if is bilateral or spontaneous. She was also unable to shree racterize the number of duct orifices from which the discharge arose . She believes the discharge was clear to slightly milky and denies bloody tinged discharge. No mammographic or sonographic abnormality was identified to explain the patient's discharge. Clinical follow-up is recommended. If there are features of pathologic nipple discharge , MRI may be indicated. RECOMMENDATION: Recommend annual bilate ral screening mammography to begin at age 40. Recommend clinical fol low-up for the inflamed skin-based lesion described. Also, ham mmend clinical follow-up to further characterize the patient's repo rted nipple discharge. If there are features of pathologic discha rge, MRI may be indicated. FINAL ASSESSMENT: DIAGNOSTIC RIGHT TINO ST MAMMOGRAM/ULTRASOUND - BI-RADS Category 2 - Benign findings. Dr David Nguyen discussed the findings and recommendations directly with the patient at the time of the exa mination.. These results will be communicated to y our patient via a lay letter from Radiology. If any additional imagi ng is needed we will contact your patient directly. REPORT SIGNED IN OTHER VENDOR SYSTEM 09/30/2018 Reported By: David Nguyen MD CC: Transcribed Date/Time: 09/30/2018 (5527 ) Putty Remover: Printed Date/Time: 02/23/2019 (0976) PAGE 2 Signed Report Performing Organization Address City/State/ZIP Code Phon e Number [facility] MA BREAST DIAGNOSTIC JESUS RIGHT (09/30/2018 11:55 EST) Specimen Narrative [facility] - 09/30/2018 11:55 EST ? EXAM: MAMMOGRAM/MAMMO RIGHT DX W JESUS ? EX. D/ (0909) ? CLINICAL INFORMATION: ? RIGHT BREAST SKIN LESION ??N64.9 ? UNILATERAL BREAST LIMITED, MAMMO RIGHT DX W JESUS ? SIGNS AND SYMPTOMS/COMMENTS: ??RI GHT BREAST SKIN LESION ??N64.9 ? COMPARISONS: None. This is a base line examination. ? FINDINGS: ? RIGHT BREAST MAMMOGRAPHY: Full fi eld digital whole breast 2D (C-view) ? and 3D ML and spot compression CC and MLO views of the right breast ? were obtained. CAD technology was utilized. ? The breast tissue is of scattered density. ??A triangular marker was ? placed over the lower right breas t to denote the area of palpable ? concern. There is a small asymmet ry that localizes to the skin in the ? area of palpable concern. No arch itectural distortion or suspicious ? microcalcification was detected. Note is made of a peripherally ? calcified oval cyst in the outer upper right breast. ? RIGHT BREAST ULTRASOUND: The lowe r right breast was scanned targeting ? the area of clinical concern at 7 o'clock, 8 cm in the nipple. The ? outer right breast was also scann ed at the location of the ? mammographic or cyst. The retroar eolar breast was scanned ? circumferentially. ? At the 7 o'clock position, 8 cm t he nipple, there is an irregular ? hypoechoic lesion completely with in the dermis that communicates with ? the skin. The surrounding skin is slightly thickened and hyperemic. ? The lesion measures 7 mm in maxim al dimension. Findings are ? consistent with a epidermal inclu brett cyst or sebaceous cyst. ? At the 9 o'clock position, 6 cm f rom the nipple, there is a 1.0-cm ? cyst with a small amount of inter nal debris. This corresponds with ? the mammographic peripherally betzy cified oil cyst. ? The retroareolar right breast was scanned circumferentially. ??No ? suspicious sonographic abnormalit y was detected. ? Please note that the contralatera l left breast was not imaged at the ? request of the ordering provider. ? RIGHT BREAST IMPRESSION: Benign. ? 1. A 7-mm hypoechoic lesion compl etely within the dermis that ? communicates with the skin at the site of palpable concern in the ? lower right breast is compatible with an epidermal inclusion cyst or ? sebaceous cyst. The adjacent skin appears slightly inflamed. ? Recommend clinical follow-up. ? 2. A benign oil cyst was incident ally noted in the outer right ? breast. ? PAGE 1 ? Barbi d Report ? (CONTINUED) ? 3. The patient describes right br east nipple discharge. Upon further ? questioning, she was unable to co mpletely characterize this ? discharge. She was unable to dete rmine if is bilateral or ? spontaneous. She was also unable to characterize the number of duct ? orifices from which the discharge arose. She believes the discharge ? was clear to slightly milky and d enies bloody tinged discharge. No ? mammographic or sonographic abnor mality was identified to explain the ? patient's discharge. Clinical fol low-up is recommended. If there are ? features of pathologic nipple dis charge, MRI may be indicated. ? RECOMMENDATION: Recommend annual bilateral screening mammography to ? begin at age 40. Recommend clinic al follow-up for the inflamed ? skin-based lesion described. Also , recommend clinical follow-up to ? further characterize the patient' s reported nipple discharge. If ? there are features of pathologic discharge, MRI may be indicated. ? FINAL ASSESSMENT: ??DIAGNOSTIC RI GHT BREAST MAMMOGRAM/ULTRASOUND - ? BI-RADS Category 2 - Benign findi ngs. ? Dr David Nguyen discussed the fi ndings and recommendations directly ? with the patient at the time of t he examination.. ? These results will be communicate d to your patient via a lay letter ? from Radiology. ??If any addition al imaging is needed we will contact ? your patient directly. ? REPORT SIGNED IN OTHER VENDOR SYSTEM 09/30/2018 ?Reported B y: David Nguyen MD ? CC: ? Transcribed Date/Time: 09/30/2018 (1155) ? Putty Remover: HIS.[email or web address] ? Printed Date/Time: 02/23/2019 (12 17) ? PAGE 2 ? Barbi d Report ? Procedure Note David Nguyen MD - 07/10/2019 EXAM: MAMMOGRAM/MAMMO RIGHT DX W JESUS E X. D/ (0909) CLINICAL INFORMATION: RIGHT BREAST SKIN LESION N64.9 UNILATERAL BREAST LIMITED, MAMMO RIGHT DX W JESUS SIGNS AND SYMPTOMS/COMMENTS: RIGHT TINO ST SKIN LESION N64.9 COMPARISONS: None. This is a baseline e xamination. FINDINGS: RIGHT BREAST MAMMOGRAPHY: Full field di gital whole breast 2D (C-view) and 3D ML and spot compression CC and M LO views of the right breast were obtained. CAD technology was Beeminder. The breast tissue is of scattered densi ty. A triangular marker was placed over the lower right breast to d enote the area of palpable concern. There is a small asymmetry tracey t localizes to the skin in the area of palpable concern. No architectu ral distortion or suspicious microcalcification was detected. Note i s made of a peripherally calcified oval cyst in the outer upper right breast. RIGHT BREAST ULTRASOUND: The lower righ t breast was scanned targeting the area of clinical concern at 7 o'mesha ck, 8 cm in the nipple. The outer right breast was also scanned at the location of the mammographic or cyst. The retroareolar breast was scanned circumferentially. At the 7 o'clock position, 8 cm the nip ple, there is an irregular hypoechoic lesion completely within the dermis that communicates with the skin. The surrounding skin is sligh tly thickened and hyperemic. The lesion measures 7 mm in maximal dim ension. Findings are consistent with a epidermal inclusion c yst or sebaceous cyst. At the 9 o'clock position, 6 cm from th e nipple, there is a 1.0-cm cyst with a small amount of internal de bris. This corresponds with the mammographic peripherally calcified oil cyst. The retroareolar right breast was scann ed circumferentially. No suspicious sonographic abnormality was detected. Please note that the contralateral left breast was not imaged at the request of the ordering provider. RIGHT BREAST IMPRESSION: Benign. 1. A 7-mm hypoechoic lesion completely within the dermis that communicates with the skin at the site of palpable concern in the lower right breast is compatible with a n epidermal inclusion cyst or sebaceous cyst. The adjacent skin appea rs slightly inflamed. Recommend clinical follow-up. 2. A benign oil cyst was incidentally n oted in the outer right breast. PAGE 1 Signed Report (CONTINUED) 3. The patient describes right breast n ipple discharge. Upon further questioning, she was unable to complete ly characterize this discharge. She was unable to determine if is bilateral or spontaneous. She was also unable to shree racterize the number of duct orifices from which the discharge arose . She believes the discharge was clear to slightly milky and denies bloody tinged discharge. No mammographic or sonographic abnormality was identified to explain the patient's discharge. Clinical follow-up is recommended. If there are features of pathologic nipple discharge , MRI may be indicated. RECOMMENDATION: Recommend annual bilate ral screening mammography to begin at age 40. Recommend clinical fol low-up for the inflamed skin-based lesion described. Also, ham mmend clinical follow-up to further characterize the patient's repo rted nipple discharge. If there are features of pathologic discha rge, MRI may be indicated. FINAL ASSESSMENT: DIAGNOSTIC RIGHT TINO ST MAMMOGRAM/ULTRASOUND - BI-RADS Category 2 - Benign findings. Dr David Nguyen discussed the findings and recommendations directly with the patient at the time of the exa mination.. These results will be communicated to y our patient via a lay letter from Radiology. If any additional imagi ng is needed we will contact your patient directly. REPORT SIGNED IN OTHER VENDOR SYSTEM 09/30/2018 Reported By: David Nguyen MD CC: Transcribed Date/Time: 09/30/2018 (3510 ) Putty Remover: Printed Date/Time: 02/23/2019 (0760) PAGE 2 Signed Report Performing Organization Address City/State/ZIP Code Phon e Number [facility] documented in this encounter Visit Diagnoses Not on filedocumented in this encounter Care Teams Accounting Representative Relationship Specialty Start Date End Date Jose Hillman MD PCP - General 04/02/09 07/06/19 [address] [place] [address] documented as of this encounter
--- OUTSIDE RECORDS SUMMARY | 2022-03-17 00:58 | XMS_ITS | Encounter Summary ---
:1985 Author Organization [facility] Address [address] [place] [address] Care Team Providers Name Role Phone Jose Hillman MD Primary Care Provider Encounter Details Date Type Department Care Team Description 01/03/2019 Hospital Encounter [phone] [place] [address] (Work) [place], [place] [id number] Social History Tobacco Use Types Packs/Day Years [...] Discharge Disposition Disposition Code Departure Means Destination Home or Self [facility] documented in this encounter Plan of Treatment Not on filedocumented as of this encounter Visit Diagnoses Not on filedocumented in this encounter Care Teams Hedis Coordinator Relationship Specialty Start Date End Date Jose Hillman MD PCP - General 04/02/09 07/06/[address] [place], [place] [id number] documented as of this encounter
--- OUTSIDE RECORDS SUMMARY | 2022-03-17 00:58 | XMS_ITS | Encounter Summary ---
:1985 Author Organization [facility] Address [address] [place] [address] Care Team Providers Name Role Phone Jose Hillman MD Primary Care Provider Aric Hurley MD Primary Care Provider Unavailable Encounter Details Date Type Department Care Team Description 10/11/2007 Results Only [facility] - [facility] yue Royal MD Maple conversion [id number] [place] [id number] [phone] Social History Tobacco Use Types Packs/Day Years [...] Date/Time Associated Diagnosis Comme nts CYTOPATHOLOGY Routine 10/11/2007 0:00 EST Results for this procedure are i n the results section . documented in this encounter Results CYTOPATHOLOGY (10/11/2007 0:00 EST) Pathology Report: CYTOPATHOLOGY REPORT MARÍA ELENA LAU Reports generated via electronic interface contain stanley ginal data; however they are lacking the format of the original re port. Caution should be taken when reading/interpreting unfo rmatted reports. Name: ? MARÍA ELENA FORD ? Accession #: ? [id number] : ? 1985 (Age: 22) ??F ?Collect Date: ? 04/2008 Location: ? [facility] ? Receive Date : ? 10/14/2007 Provider: ?MACKENZIE ROYAL MD Copy to: ? Specimen/Source: ? ThinPrep Pap Test, Cervix/Endocervix, processed on [employer] ThinPrep Imaging System, with manual evaluation Last Menstrual Period: ? N/A Menstrual/ Status: ? Post Other: ? HPVA - HPV testing requested if ASC-US on the current ThinPrep Pap test. ? SPECIMEN ADEQUACY ? Satisfactory for Evaluation - transformation zone component present GENERAL CATEGORIZATION ? Negative for Intraepithelial Lesion or Malignan cy ? Document reviewed and electronically signed by: ? ANICETO Hsieh(ASCP) ? Report Date: ??10/17/2007 10:34 End of Report Specimen Performing Organization Address City/State/ZIP Code Phon e Number [facility] [address] [place] [address] SERVICES [facility] [address] [place] [address] documented in this encounter Visit Diagnoses Not on filedocumented in this encounter Care Teams Cell Tester Relationship Specialty Start Date End Date Jose Hillman MD PCP - General 04/02/09 07/06/[address] [place] [address] Aric Hurley MD PCP - General 01/13/0902/06 documented as of this encounter
--- OUTSIDE RECORDS SUMMARY | 2022-03-17 00:58 | XMS_ITS | Encounter Summary ---
:1985 Author Organization [facility] Address [address] [place] [address] Care Team Providers Name Role Phone Aric Hurley MD Primary Care Provider Unavailable Encounter Details Date Type Department Care Team Description 02/01/2009 Orders Only [facility] Adult Unknown , Provider, Primary Care - Carlos Alberto hernandes [address] [facility] [place], [place] [address] Social History Tobacco Use Types Packs/Day Years [...] Procedure Name Priority Date/Time Associated Comments Diagnosis RUBELLA IGG ANTIBODY Routine 02/01/2009 7:42 EDT Results for this procedure are i n the results section. HEPATITIS B SURFACE Routine 02/01/2009 7:42 EDT R esults for this ANTIGEN procedure are i n the results section. SYPHILIS SERO (RPR) Routine 02/01/2009 7:42 EDT R esults for this procedure are i n the results section. HIV 1/2 ANTIGEN AND Routine 02/01/2009 7:42 EDT R esults for this ANTIBODY, 4TH procedure are in GENERATION the results section. documented in this encounter Results HIV ANTIBODY (02/01/2009 7:42 EDT) HIV 1/2 Antibody Negative [facility] Reference Range: ??Negative Specimen Blood specimen (specimen) Performing Organization Address [facility] Phon e Number [facility] [address] [place] [address] SERVICES [facility] [address] [place] [address] SYPHILIS SERO (RPR) (02/01/2009 7:42 EDT) Pathologist Sig nature Syphilis Sero (RPR) NONREACT. NR Dils [facility] Specimen Blood specimen (specimen) Performing Organization Address [facility] Phon e Number [facility] [address] [place] [address] SERVICES [facility] [address] [place] [address] RUBELLA IGG ANTIBODY (02/01/2009 7:42 EDT) Pathologist Sig nature Rubella IgG Ab Antibody detected [facility] Assayed utilizing the [employer] Immulite 2500. Values may vary with other methods. Specimen Blood specimen (specimen) Performing Organization Address [facility]/ZIP [facility] Phon e Number [facility] [address] [place] [address] SERVICES [facility] [address] [place] [id number] HEPATITS B SURFACE ANTIGEN (02/01/2009 7:42 EDT) Hepatitis B Surface Negative [facility] Ag Reference Range: ??Negative Specimen Blood specimen (specimen) Performing Organization Address [facility] Phon e Number [facility] [address] [place] [address] SERVICES [facility] [address] [place] [address] documented in this encounter Visit Diagnoses Not on filedocumented in this encounter Care Teams Senior Stock Plan Administrator Relationship Specialty Start Date End Date Aric Hurley MD PCP - General 01/13/0902/06 documented as of this encounter
--- OUTSIDE RECORDS SUMMARY | 2022-03-17 00:58 | XMS_ITS | Encounter Summary ---
:1985 Author Organization [facility] Address [address] [place] [address] Care Team Providers Name Role Phone Jose Hillman MD Primary Care Provider Encounter Details Date Type Department Care Team Description 06/19/2016 Results Only [facility] Opal Swift MD Clinical Genetics - [address] [address] [phone] (Wo rk) Social History Tobacco Use Types [...] Name Priority Date/Time Associated Diagnosis Comme nts PARENTAL GENEDX Routine 06/19/2016 19:41 Results for this TESTING EDT procedure are i n the results section. documented in this encounter Results PARENTAL GENEDX TESTING (06/19/2016 19:41 EDT) Pathologist [facility] nature Parent of YI Pascual [facility] 08.30.2007 LABORATORY SERVICES Comment Sent to Lizhi for [facility] comparison purposes. LABORATORY SERVICES Specimen Blood Performing Organization Address City/State/ZIP Code Phon e Number [facility] [address] [place] [address] SERVICES documented in this encounter Visit Diagnoses Not on filedocumented in this encounter Care Teams Imaging Engineer Relationship Specialty Start Date End Date Jose Hillman MD PCP - General 04/02/09 07/06/19 [address] [place] [address] documented as of this encounter
--- OUTSIDE RECORDS SUMMARY | 2022-03-17 00:58 | XMS_ITS | Encounter Summary ---
:1985 Author Organization [facility] Address [address] [place] [address] Care Team Providers Name Role Phone Jose Hillman MD Primary Care Provider Encounter Details Date Type Department Care Team Description 03/19/2019 Historical Results Health system - [address], Only [facility] Lab - Main [facility] [address] [place] [address] [address], [address] [place] [address] Social History Tobacco Use Types [...] Procedure Name Priority Date/Time Associated Diagnosis Comme [facility] SURGICAL PATHOLOGY Routine 03/19/2019 Results f or this procedure are i n the results section . documented in this encounter Results SURGICAL PATHOLOGY (03/19/2019) Specimen Narrative [facility] - 019 17:14 EDT Name: MARÍA ELENA FORD ? : [birth year] ?Age/Sex: 33/F ?Unit#: [id number] ? Loc: SDS ? Status: DEP SDC ?? Reg Date: 03/19/19 ? Pt.Phone Number : ? Specimen: [id number] ? STA ALISON: PATT ?Spec Date:03/19/19 ? Physician Copies: ?Swati Lane MD ?? Tissues: A ?? Endometrium, polyp ? Stewart,Georgie A ? B ?? Endometrium, curetting s ? C ?? Endocervix, polyp ? CPT: 85208 ?? Units: ??3 ?FINAL DIAGNOSIS ? A. ENDOMETRIUM, POLYP, BIOPSY; ? - Endometrial polyp fragments. ? - Background proliferative endome trium. ? B. ENDOMETRIUM, CURETTAGE; ? - Endometrial polyp fragments. ? - Background proliferative endome trium. ? C. ENDOCERVIX, POLYP, BIOPSY; ? - Endometrial polyp fragments. ?? See comment. ?COMMENT ? All of the specimens, including part C, consist of proliferative endometrium with multiple endometrial polyp fragmen ts. ??Negative for atypia or malignancy. No endocervical polyp tissue identified . ? GROSS DESCRIPTION ? Received are three formalin conta iner all labeled with María Elena Ford, ? [birth year]. ? A. ??The first container is addit ionally labeled 1.endometrial polyp and ? contains multiple marin and marin-red tissue fragments ranging in size from ? approximately 2 mm to the largest measuring 1.5 x 0.7 x 0.6 cm in greatest ? dimension, appearing to represent a dominant polypoid tissue fragment. ??The ? larger polypoid fragment is bisec kelly and submitted entirely in 1 cassette along ? with the smaller fragment. ? B. A second conatiner is addition ally labeled 2. endometrial curettings and ? contains multiple marin-red fragmen ts of tissue that measure 3.0 x 2.0 x 0.7 cm ? in greatest aggregate dimension, entirely submitted in 2 cassettes. ? Patient: MARÍA ELENA FORD ? #[id number] ? (Continued) Specimen: [id number] ? Rec eived: 03/19/19-1102 ?(Continued) ? GROSS DESCRIPTION ?(Continued) ? C. ??A third container is additio sadie labeled 3. endocervical polyp and ? contains two tissue fragments, th e larger measuring approximately 1.1 x 0.6 x ? 0.3 cm and the smaller measuring 0.6 x 0.4 x 0.2 cm, both marin-red in color and ? submitted entirely in cassette C. ??GEORGINA ?? PREOP DX/CLINICAL HISTORY ?Abnormal uterine bleeding Signed ____(signature on file)____ Yee Geiger M.D. 03/20/19 By the signature above, the attending ph ysician certifies that he/she has personally conducted a gross and/or microscopic exa mination of the described specimens and rendered or confirmed the above diagnosi s. Test Performed by [facility], [address] [place], [place] [id number] Hydrologist: Yee Hines MD PHD Performing Organization Address City/State/ZIP Code Phon e Number [facility] [address] [place] [address] LAB documented in this encounter Visit Diagnoses Not on filedocumented in this encounter Care Teams Motorboat Mechanic Relationship Specialty Start Date End Date Jose Hillman MD PCP - General 04/02/09 07/06/19 [address] [place], [place] [id number] documented as of this encounter
--- OUTSIDE RECORDS SUMMARY | 2022-03-17 00:58 | XMS_ITS | Encounter Summary ---
:1985 Author Organization [facility] Address [address] [place] [address] Care Team Providers Name Role Phone Jose Hillman MD Primary Care Provider Aric Hurley MD Primary Care Provider Unavailable Encounter Details Date Type Department Care Team Description 02/05/2007 Results Only [facility] - Ana briggs, Provider, conversion [address] [place] [address] Social History Tobacco Use Types Packs/Day Years [...] Name Priority Date/Time Associated Diagnosis Comme nts CHLAMYDIA/GC Routine 02/05/2007 13:29 Results for this AMPLIFIED PROBE EDT procedure ar e in the results section. documented in this encounter Results CHLAMYDIA/GC AMPLIFIED PROBE (02/05/2007 13:29 EDT) Specimen Vagina [facility] Description LAB Result No Chlamydia trachomatis or Neisseria gonorrhoeae DNA detected by apn mediated MARÍA E[facility]NA LIN amplification. LAB Report Status Final [facility] [id number] LAB Specimen Performing Organization Address City/State/ZIP Code Phon e Number [facility] [address] [place] [address] SERVICES [facility] [address] [place] [address] documented in this encounter Visit Diagnoses Not on filedocumented in this encounter Care Teams Employee Relations Manager Relationship Specialty Start Date End Date Jose Hillman MD PCP - General 04/02/09 07/06/19 [address] [place] [address] Aric Hurley MD PCP - General 01/13/0902/06 documented as of this encounter
--- OUTSIDE RECORDS SUMMARY | 2022-03-17 00:58 | XMS_ITS | Encounter Summary ---
:1985 Author Organization [facility] Address [address] [place] [address] Care Team Providers Name Role Phone Jose Hillman MD Primary Care Provider Encounter Details Date Type Department Care Team Description 08/09/2009 Abstract [facility] Jose Hillman Sp otting in Women's Services - [facility] [address] [place] [address] [place], [place] [id number] [phone] Social History Tobacco Use Types Packs/Day Years [...] as of this encounter Visit Diagnoses Diagnosis Spotting in Spotting complicating , unspeci fied as to episode of care or not applicable documented in this encounter Care Teams Pond Supervisor Relationship Specialty Start Date End Date Jose Hillman MD PCP - General 04/02/09 07/06/19 [address] [place] [address] documented as of this encounter
--- OUTSIDE RECORDS SUMMARY | 2022-03-17 00:58 | XMS_ITS | Encounter Summary ---
:1985 Author Organization [facility] Address [address] [place] [address] Care Team Providers Name Role Phone Jose Hillman MD Primary Care Provider Encounter Details Date Type Department Care Team Description 04/06/2009 Hospital Encounter [facility] [address] [place] [address] Social History Tobacco Use Types Packs/Day Years [...] Code Departure Means Destination Home or Self Prison documented in this encounter Plan of Treatment Not on filedocumented as of this encounter Procedures Procedure Name Priority Date/Time Associated Diagnosis Comme nts CYTOPATHOLOGY Routine 08/09/2009 0:00 EST Results for this procedure are i n the results section . documented in this encounter Results CYTOPATHOLOGY (08/09/2009 0:00 EST) Pathology Report: CYTOPATHOLOGY REPORT ? [facility] ? LAB Reports generated via electr onic interface contain original data; ? however they are lacking the format of the original report. ? Caution should be taken when reading/interpreting unformatted reports. ? Name: ? MARÍA ELENA FORD ? Accession #: ? [id number] ? : ? 1985 (Age: 24) ??F ?Collect Date: ? 08/09/2009 ? Location: ? [facility] ? Receive Date: ? 08/10/2009 ? Provider: ?MACKENZIE J ROS SMAN MD ? Copy to: ? Specimen/Source: ? Pap Test, Cervix/Endocervix, ThinPrep Imaging System ? with manual evaluation ? Last Menstrual Period: ? Menstrual/ Status: ? Post ? Hormonal/Contraceptive Statu s: ? Tubal ligation: Bilateral 10 /09 ? Other: ? HPVA - HPV testing requested if ASC-US on the current ThinPrep Pap test. ? SPECIMEN ADEQUACY ? Satisfactory for Eval uation ? - transformation zone compon ent present ? GENERAL CATEGORIZATION ? Negative for Intraepi thelial Lesion or Malignancy ? Document reviewed and electr onically signed by: ? Lynan Bryn, CT(ASCP) ? Report Date: ??12/09/ 2009 16:26 ? End of Report ? Specimen Performing Organization Address City/[facility]/ZIP Code Phon e Number [facility] [address] [place] [address] SERVICES [facility] [address] [place] [address] documented in this encounter Visit Diagnoses Not on filedocumented in this encounter Care Teams Application Tester Relationship Specialty Start Date End Date Jose Hillman MD PCP - General 04/02/09 07/06/[address] [place] [address] documented as of this encounter
--- OUTSIDE RECORDS SUMMARY | 2022-03-17 00:58 | XMS_ITS | Encounter Summary ---
:1985 Author Organization [facility] Address [address] [place] [address] Care Team Providers Name Role Phone Jose Hillman MD Primary Care Provider Encounter Details Date Type Department Care Team Description 05/19/[address] [facility] [phone] [place] [address] (Work) [place], [place] [phone] Social History Tobacco Use Types Packs/Day Years [...] Code Departure Means Destination Home or Self Intermediate documented in this encounter Plan of Treatment Not on filedocumented as of this encounter Visit Diagnoses Not on filedocumented in this encounter Care Teams Label Press Operator Relationship Specialty Start Date End Date Jose Hillman MD PCP - General 04/02/09 07/06/19 [address] [place], [place] [phone] documented as of this encounter
--- OUTSIDE RECORDS SUMMARY | 2022-03-17 00:58 | XMS_ITS | Encounter Summary ---
:1985 Author Organization [facility] Address [address] [place] [address] Care Team Providers Name Role Phone Jose Hillman MD Primary Care Provider Encounter Details Date Type Department Care Team Description 04/06/2009 Orders Only [facility]- Abner Peerz MD [phone] [address] [place] [address] (Wo rk) Social History Tobacco Use Types [...] Name Priority Date/Time Associated Diagnosis Comme nts [facility] ROUTINE 04/06/2009 14:46 EDT Results for this procedure are i n the results section . documented in this encounter Results [facility] ROUTINE (04/06/2009 14:46 EDT) Anatomical Region Laterality Modality Other Specimen Narrative [facility] - 04/13/2009 5:40 EDT Please refer to the separate [facility] re port. ??Contact Maternal Medicine. Procedure Note 04/13/2009 Please refer to the separate [employer] re port. Contact Maternal Medicine. Performing Organization Address City/State/ZIP Code Phon e Number [facility] RAD[facility] MATERNAL MEDICINE [facility] documented in this encounter Visit Diagnoses Not on filedocumented in this encounter Care Teams Budget Assistant Relationship Specialty Start Date End Date Jose Hillman MD PCP - General 04/02/09 07/06/[address] [place] [address] documented as of this encounter
--- OUTSIDE RECORDS SUMMARY | 2022-03-17 00:58 | XMS_ITS | Encounter Summary ---
:1985 Author Organization [facility] Address [address] [place] [address] Care Team Providers Name Role Phone Jose Hillman MD Primary Care Provider Aric Hurley MD Primary Care Provider Unavailable Encounter Details Date Type Department Care Team Description 02/22/2006 Results Only [facility] - Fr yue Royal MD Maple conversion [id number] [place] [id number] [phone] Social History Tobacco Use Types Packs/Day Years [...] Date/Time Associated Diagnosis Comme nts CYTOPATHOLOGY Routine 02/22/2006 0:00 EDT Results for this procedure are i n the results section . documented in this encounter Results CYTOPATHOLOGY (02/22/2006 0:00 EDT) Pathology Report: CYTOPATHOLOGY REPORT [facility] Reports generated via electronic interface contain stanley ginal data; however they are lacking the format of the original re port. Caution should be taken when reading/interpreting unfo rmatted reports. Name: ? MARÍA ELENA FORD ? Accession #: ? [id number] : ? 1985 (Age: 20) ??F ?Collect Date: ? 02/02 Location: ? [facility] ? Receive Date : ? 02/23/2006 Provider: ?MACKENZIE ROYAL MD Copy to: ? Specimen/Source: ? ThinPrep Pap Test, Cervix/Endocervix, processed on [employer] ThinPrep Imaging System, with manual evaluation Last Menstrual Period: ? 12/14/05 Menstrual/ Status: ? Other: ? HPVA - HPV testing requested if ASC-US on the current ThinPrep Pap test. ? SPECIMEN ADEQUACY ? Satisfactory for Evaluation - transformation zone component present - scant squamous epithelial component secondary to exc essive blood GENERAL CATEGORIZATION ? Negative for Intraepithelial Lesion or Malignan cy ? Document reviewed and electronically signed by: ? KATHERINE Salazar(ASCP) ? Report Date: ??02/27/2006 10:06 End of Report Specimen Performing Organization Address City/State/ZIP Code Phon e Number [facility] [address] [place] [phone] SERVICES [facility] [address] [place] [address] documented in this encounter Visit Diagnoses Not on filedocumented in this encounter Care Teams Geodetic Computator Relationship Specialty Start Date End Date Jose Hillman MD PCP - General 04/02/09 07/06/[address] [place] [address] Aric Hurley MD PCP - General 01/13/0902/06 documented as of this encounter
--- OUTSIDE RECORDS SUMMARY | 2022-03-17 00:58 | XMS_ITS | Encounter Summary ---
:1985 Author Organization [facility] Address [address] [place] [address] Care Team Providers Name Role Phone Jose Hillman MD Primary Care Provider Encounter Details Date Type Department Care Team Description 09/30/2018 Hospital Encounter [facility] [phone] [place] [address] (Work) [place], [place] [phone] Social History Tobacco Use Types Packs/Day Years [...] Code Departure Means Destination Home or Self Shelter documented in this encounter Plan of Treatment Not on filedocumented as of this encounter Visit Diagnoses Not on filedocumented in this encounter Care Teams Castables Worker Relationship Specialty Start Date End Date Jose Hillman MD PCP - General 04/02/09 07/06/19 [address] [place], [place] [phone] documented as of this encounter
--- OUTSIDE RECORDS SUMMARY | 2022-03-17 00:58 | XMS_ITS | Encounter Summary ---
:1985 Author Organization [facility] Address [address] [place] [address] Care Team Providers Name Role Phone Jose Hillman MD Primary Care Provider Encounter Details Date Type Department Care Team Description 05/19/2019 Historical Results [facility] - [address], Only [facility] Radiology Resul ts [address] [facility] [address] [place] [address] [address], [address] [place] [address] Social History Tobacco Use Types [...] Priority Date/Time Associated Diagnosis Comme nts US ABDOMEN COMPLETE 05/19/2019 8:28 EDT R esults for this procedure are i n the results section. documented in this encounter Results US ABDOMEN COMPLETE (05/19/2019 8:28 EDT) Specimen Narrative [facility] - 05/19/2019 8:31 EDT ? EXAM: ULTRASOUND/ABDOMINAL MULTIPLE ORGAN EX. D/ (0705) ? CLINICAL INFORMATION: ? R10.9 ABDOMINAL PAIN ? ABDOMINAL MULTIPLE ORGAN ? Signs and Symptoms/Comments: ??R1 0.9 ABDOMINAL PAIN ? Comparison: None ? Technique: Complete abdominal ult rasound was performed with color ? Doppler imaging. ? FINDINGS: ? Pancreas: The visible portion of the pancreas is grossly ? unremarkable. ? Liver: The liver is normal in siz e (measuring 17.1 cm). Moderate ? diffuse hepatosteatosis is presen t. Two circumscribed homogeneously ? echogenic lesions in the right he patic lobe measure 1.6 cm and 1.2 cm ? respectively, statistically likel y to reflect hemangiomas in the ? absence of risk fractures for HCC or metastatic disease. There is a ? 2.9 cm cyst in the dome of the li amnju with a possible thin internal ? septation. A lobulated 2.6 cm rig ht hepatic cyst is also present ? without significant complexity. A simple 1.3 cm right hepatic cyst is ? also present. The liver contour i s smooth. No perihepatic ascites is ? visible. ? Bile Ducts: No biliary dilatation is identified. The common bile duct ? measures 5.6 mm. ? Gallbladder: The gallbladder cont ains no stones. The gallbladder wall ? is normal in thickness (2.1 mm). No pericholecystic fluid is visible. ? No sonographic Pimentel's sign was elicited. ? Right Kidney: The right kidney is normal in size, measuring 11.6 cm. ? No renal mass is identified. No s hadowing calculi are visible. No ? hydronephrosis is present. ? Left Kidney: The left kidney is n ormal in size, measuring 11.2 cm. No ? renal mass is identified. No shad owing calculi are visible. No ? hydronephrosis is present. ? Spleen: The spleen is homogeneous in echotexture and normal in size, ? measuring 10.5 cm x 4.8 cm x 4.5 cm (volume 119.1 cc). ? Vessels: The visible portions of the abdominal aorta and IVC are ? unremarkable. ? IMPRESSION: ? 1. ??Small circumscribed echogeni c liver lesions, statistically likely ? to reflect hemangiomas in the abs ence of risk factors for HCC or ? metastatic disease. If there is c linical concern, liver protocol MR ? PAGE 1 ? Barbi d Report ? (CONTINUED) ? may be performed for further connie acterization. Otherwise, follow-up ? ultrasound is recommended in 3-6 months to confirm stability. ? 2. ??Multiple small hepatic cysts , without significant complexity. ? 3. ??Moderate hepatosteatosis. ? 4. ??Otherwise unremarkable abdom inal ultrasound. ? This report has been flagged for a noncritical result requiring ? follow-up on the [employer] application, to be tracked by ? the [facility] tracking system. ? REPORT SIGNED IN OTHER VENDOR SYSTEM 05/19/2019 ?Reported B y: Isaak Gautam MD ? CC: ? Transcribed Date/Time: 05/19/2019 (0831) ? Environmental Solutions Engineer: ? Printed Date/Time: 05/21/2019 (17 21) ? PAGE 2 ? Barbi d Report ? Procedure Note Isaak Gautam MD, - 07/08/2019 EXAM: ULTRASOUND/ABDOMINAL MULTIPLE ORG AN EX. D/ (0705) CLINICAL INFORMATION: R10.9 ABDOMINAL PAIN ABDOMINAL MULTIPLE ORGAN Signs and Symptoms/Comments: R10.9 ABDO ANNA PAIN Comparison: None Technique: Complete abdominal ultrasoun d was performed with color Doppler imaging. FINDINGS: Pancreas: The visible portion of the pa ncreas is grossly unremarkable. Liver: The liver is normal in size (navin suring 17.1 cm). Moderate diffuse hepatosteatosis is present. Two circumscribed homogeneously echogenic lesions in the right hepatic lobe measure 1.6 cm and 1.2 cm respectively, statistically likely to r eflect hemangiomas in the absence of risk fractures for HCC or me tastatic disease. There is a 2.9 cm cyst in the dome of the liver wi th a possible thin internal septation. A lobulated 2.6 cm right hep atic cyst is also present without significant complexity. A simpl e 1.3 cm right hepatic cyst is also present. The liver contour is smoo th. No perihepatic ascites is visible. Bile Ducts: No biliary dilatation is id entified. The common bile duct measures 5.6 mm. Gallbladder: The gallbladder contains n o stones. The gallbladder wall is normal in thickness (2.1 mm). No per icholecystic fluid is visible. No sonographic Pimentel's sign was elicit ed. Right Kidney: The right kidney is adrien l in size, measuring 11.6 cm. No renal mass is identified. No shadowi ng calculi are visible. No hydronephrosis is present. Left Kidney: The left kidney is normal in size, measuring 11.2 cm. No renal mass is identified. No shadowing calculi are visible. No hydronephrosis is present. Spleen: The spleen is homogeneous in ec hotexture and normal in size, measuring 10.5 cm x 4.8 cm x 4.5 cm (vo lume 119.1 cc). Vessels: The visible portions of the ab dominal aorta and IVC are unremarkable. IMPRESSION: 1. Small circumscribed echogenic liver lesions, statistically likely to reflect hemangiomas in the absence o f risk factors for HCC or metastatic disease. If there is clinica l concern, liver protocol MR PAGE 1 Signed Report (CONTINUED) may be performed for further characteri zation. Otherwise, follow-up ultrasound is recommended in 3-6 months to confirm stability. 2. Multiple small hepatic cysts, withou t significant complexity. 3. Moderate hepatosteatosis. 4. Otherwise unremarkable abdominal ult rasound. This report has been flagged for a nonc ritical result requiring follow-up on the [employer] PACS findings ap plication, to be tracked by the [facility] tracking system. REPORT SIGNED IN OTHER VENDOR SYSTEM 05/19/2019 Reported By: Isaak Gautam MD CC: Transcribed Date/Time: 05/19/2019 (0831 ) Environmental Solutions Engineer: Printed Date/Time: 05/21/2019 (9385) PAGE 2 Signed Report Performing Organization Address City/State/ZIP Code Phon e Number [facility] documented in this encounter Visit Diagnoses Not on filedocumented in this encounter Care Teams Plating Inspector Relationship Specialty Start Date End Date Jose Hillman MD PCP - General 04/02/09 07/06/[address] [place] [address] documented as of this encounter
--- OUTSIDE RECORDS SUMMARY | 2022-03-17 00:58 | XMS_ITS | Encounter Summary ---
:1985 Author Organization [facility] Address [address] [place] [address] Care Team Providers Name Role Phone Aric Hurley MD Primary Care Provider Unavailable Encounter Details Date Type Department Care Team Description 11/02/2008 Before PRISM Converted [facility] Unknown, Visit (Maple) Adult Primary Care - Provider, Pritesh Hayden [place] [phone] 1 [facility] (Work) [place] [address] [phone] Social History Tobacco Use Types Packs/Day Years [...] Procedure Name Priority Date/Time Associated Comments Diagnosis CHLAMYDIA/N. Routine 11/02/2008 17:20 Results for this GONORRHOEAE AMPLIFIED EST proced ure are in RNA the results section. CYTOPATHOLOGY Routine 11/02/2008 0:00 Results for this EST procedure are i n the results section. documented in this encounter Results CHLAMYDIA/GC AMPLIFIED (11/02/2008 17:20 EST) Specimen Cervix [facility] Description LAB Result No Chlamydia [facility] trachomatis DNA LAB detected by motion picture director mediated amplification. Result No Neisseria [facility] gonorrhoeae DNA LAB detected by motion picture director mediated amplification. Specimen Performing Organization Address City/State/ZIP Code Phon e Number [facility] [address] [place] [address] [facility] [address] [place] [address] CYTOPATHOLOGY (11/02/2008 0:00 EST) Pathology Report: CYTOPATHOLOGY REPORT ? [facility]LE[facility] MORALES EN ? LAB Reports generated via PISTIS Consult interface contain original data; ? however they are lacking the format of the original report. ? Caution should be taken when reading/interpreting unformatted reports. ? Name: ? MARÍA ELENA FORD ? Accession #: ? [id number] ? : ? 1985 (Age: 23) ??F ?Collect Date: ? 11/02/2008 ? Location: ? [facility] ? Receive Date: ? 11/03/2008 ? Provider: ?MACKENZIE J ROS SMAN MD ? Copy to: ? Specimen/Source: ? Pap Test, Cervix/Endocervix, ThinPrep Imaging System ? with manual evaluation ? Last Menstrual Period: ? Menstrual/ Status: ? Other: ? HPVA - HPV testing requested if ASC-US on the current ThinPrep Pap test. ? SPECIMEN ADEQUACY ? Unsatisfactory for Ev aluation, ? - insufficient numbers of sq uamous epithelial cells (less than 10% of expected ?? cellularity) ? GENERAL CATEGORIZATION ? Specimen processed an d examined, but unsatisfactory for evaluation of ? epithelial abnormality. ? Recommend repeat Pap test or further follow up, as clinically indicated. ? Document reviewed and electr onically signed by: ? Genny Toth, CT( CP) ? Report Date: ??03/05/ 2009 12:46 ? End of Report ? Specimen Performing Organization Address City/State/ZIP Code Phon e Number [facility] [address] [place] [phone] SERVICES [facility] [address] [place] [address] documented in this encounter Visit Diagnoses Not on filedocumented in this encounter Care Teams Cna Relationship Specialty Start Date End Date Aric Hurley MD PCP - General 01/13/0902/06 documented as of this encounter
--- OUTSIDE RECORDS SUMMARY | 2022-03-17 00:58 | XMS_ITS | Encounter Summary ---
:1985 Author Organization [facility] Address [address] [place] [address] Care Team Providers Name Role Phone Aric Hurley MD Primary Care Provider Unavailable Encounter Details Date Type Department Care Team Description 02/01/2009 Hospital Encounter [facility] - Abner Anand MD [facility] [address] [place] [id number] [place] [id number] (Wo rk) Social History Tobacco Use Types [...] Code Departure Means Destination Home or Self Care documented in this encounter Plan of Treatment Not on filedocumented as of this encounter Visit Diagnoses Not on filedocumented in this encounter Care Teams Owner Spa Director Relationship Specialty Start Date End Date Aric Hurley MD PCP - General 01/13/0902/06 documented as of this encounter
--- NOTE | 2022-03-17 06:30 | DI.MRI_ITS ---
Exam(s) MR BRAIN WO EXAM: MR BRAIN WO CLINICAL HISTORY: frequent HAs and hx sphenoid sinusitits,r51.9,j32.3 TECHNIQUE: Multiplanar multisequence MRI of the brain was performed. COMPARISON: MR MR BRAIN WO from 12/01/2021 FINDINGS: VENTRICLES AND EXTRA AXIAL SPACES: Normal in size and morphology for the patient's age. MIDLINE SHIFT: None. CEREBRAL PARENCHYMA: No focus of restricted diffusion to suggest acute infarct. No space-occupying le brett identified. HEMORRHAGE: None. BRAINSTEM/CEREBELLUM: Normal. CALVARIUM: Normal. VISUALIZED PARANASAL SINUSES/MASTOIDS:Clear. PAUMA OF AYON: Normal flow void. PITUITARY GLAND: Unremarkable. OTHER FINDINGS: None. IMPRESSION: Unremarkable MRI of the brain. DATA REPOSITORY:
== END ==
PROVIDERS: PCP Registered Nurse; Visit Provider Nurse Practitioner Adult Health
DX: J32.3 Chronic sphenoidal sinusitis (principal)
CPT/HCPCS: 70551

== ENCOUNTER 2022-04-10 11:59 | Outpatient (REF) | payer MEDICAID, SELFPAY ==
[2022-04-10 15:42] LABS: Anion Gap 11.2 mmol/L (3-11); BUN 17 mg/dL (7-18); CO2 23.8 mmol/L (21.0-32.0); CREATININE 1.1 mg/dL (0.55-1.02); Calcium 9.5 mg/dL (8.5-10.1); Chloride 104 mmol/L (98-107); Estimated GFR 55.59 (mL/min/1.73m2); Glucose 101 mg/dL (74-106); Potassium 4.3 mmol/L (3.5-5.1); Sodium 139 mmol/L (136-145)
== END 2022-04-10 12:00 | disposition home or self-care (01) ==
LOC: NCHCN 11:59
PROVIDERS: PCP Registered Nurse; Visit Provider Nurse Practitioner Family
DX: I10 Essential (primary) hypertension (principal)
CPT/HCPCS: 80048

== ENCOUNTER 2022-05-19 13:26 | Outpatient (REF) | payer MEDICAID, SELFPAY ==
[2022-05-19 19:20] LABS: ESR 13 mm/hr (0-20)
[2022-05-21 17:14] LABS: Rheumatoid Factor <8.6 IU/mL (<12.0)
[2022-05-22 15:11] LABS: ANA Interpretation Negative (Negative)
== END 2022-05-19 13:27 | disposition home or self-care (01) ==
LOC: NCHCN 13:26
PROVIDERS: PCP Registered Nurse; Visit Provider Nurse Practitioner Family
DX: M25.551 Pain in right hip (principal)
CPT/HCPCS: 85652; 86038; 86431

== ENCOUNTER 2023-03-13 19:14 | Outpatient (REF) | payer MEDICAID, SELFPAY ==
[2023-03-13 22:02] LABS: Hemoglobin A1C 5.5 % (<5.7)
[2023-03-13 22:55] LABS: ALT 34 U/L (14-59); AST 32 U/L (15-37); Albumin 3.7 g/dL (3.4-5.0); Alkaline Phosphatase 83 U/L (46-116); Anion Gap 10.5 mmol/L (3-11); BUN 12 mg/dL (7-18); Bilirubin, Total 0.4 mg/dL (0.2-1.0); CO2 23.5 mmol/L (21.0-32.0); CREATININE 0.9 mg/dL (0.55-1.02); Calcium 9.5 mg/dL (8.5-10.1); Chloride 104 mmol/L (98-107); Glucose 92 mg/dL (74-106); Sodium 138 mmol/L (136-145); Total Protein 7.6 g/dL (6.4-8.2)
== END 2023-03-13 19:15 | disposition home or self-care (01) ==
LOC: NCHCN 19:14
PROVIDERS: PCP Registered Nurse; Visit Provider Nurse Practitioner Family
DX: I10 Essential (primary) hypertension (principal); R73.03 Prediabetes
CPT/HCPCS: 80053; 83036

== ENCOUNTER 2024-03-19 06:07 | Emergency (ER) | payer MEDICAID, SELFPAY ==
[2024-03-19 06:09] VITALS: BP 142/108; PULSE 92; RESP 16; TEMP 36.8; O2SAT 99
--- NOTE | 2024-03-19 06:14 | ED.GENADUL_ITS ---
Discharge Plan Disposition Patient Disposition: Home Condition: Good Discharge Details Clinical Impression: Tick bite, Anxiety Primary Care Provider: Unknown,Unknown ED Provider: Kun Quiroz and New Rx's Prescriptions: Continued lisinopril 2.5 mg tablet 5 mg PO DAILY magnesium oxide 500 mg capsule 500 mg PO QHS Qty: 90 3RF cyclobenzaprine 5 mg tablet 5 mg PO HS Qty: 90 3RF topiramate [Topamax] 50 mg tablet 50 mg PO QHS Qty: 30 3RF montelukast 10 mg Tablet 10 mg PO DAILY albuterol sulfate [ProAir HFA] 90 mcg/actuation Hfa Aerosol Inhaler 2 puff INHALATION 6XD PRN cholecalciferol (vitamin D3) [Vitamin D3] 10 mcg (400 unit) Tablet 10 mcg PO DAILY buspirone 10 mg tablet 30 mg PO BID Rx Instructions: 30mgs in am. 20 mgs in pm lisinopril 5 mg tablet 5 mg PO DAILY Patient Comments: TAKE ONE TABLET BY MOUTH EVERY DAY Discharge Instructions Instructions: Insect Bites and Stings ED Additional Instructions: You were seen in the ED for multiple tick bites. You were given a prophylactic dose of doxycycline though the likelihood of any tickborne illness including Lyme is minimal to begin with. There is no sign of infection related to the bites themselves. You may take ibuprofen as needed for discomfort. Please follow-up with your primary care physician. Return to ED if you develop any significant swelling, redness, drainage from a previous area that was bitten or if you develop fever, rash, joint pains, headache, other concerns. HPI General Mode of arrival: ambulatory . Date/Time Provider Initiated Documentation: 03/19/24 06:12 . Limitations to Documentation: no limitations . HPI Narrative: Patient presents to ED complaints of multiple tick bites over the last few days which are painful to her. She is also complaining of shaking all over and appears quite upset stating she has never been bitten by ticks previously. Text of all been removed as far as she knows. There is no rash. There is no fever or systemic symptoms. She reports both what sounds like dog ticks and deer ticks being present. Related Data Home Medications ?Medication ?Instructions ?Recorded ?Confirmed albuterol sulfate 90 mcg/actuation 2 puff inhalation 6XD PRN 03/24/20 03/19/24 aerosol inhaler (ProAir HFA) cholecalciferol (vitamin D3) 10 10 mcg PO DAILY 03/24/20 03/19/24 mcg (400 unit) tablet (Vitamin D3) montelukast 10 mg tablet 10 mg PO DAILY 03/24/20 03/19/24 lisinopril 2.5 mg tablet 5 mg PO DAILY 06/19/22 03/19/24 cyclobenzaprine 5 mg tablet 5 mg PO HS #90 tabs 05/09/23 03/19/24 magnesium oxide 500 mg capsule 500 mg PO QHS #90 caps 05/09/23 03/19/24 buspirone 10 mg tablet 30 mg PO BID 10/18/23 03/19/24 topiramate 50 mg tablet (Topamax) 50 mg PO QHS #30 tabs 01/03/24 03/19/24 lisinopril 5 mg tablet 5 mg PO DAILY 03/19/24 03/19/24 Previous Rx's ?Medication ?Instructions ?Recorded cyclobenzaprine 5 mg tablet 5 mg PO HS #90 tabs 05/09/23 magnesium oxide 500 mg capsule 500 mg PO QHS #90 caps 05/09/23 topiramate 50 mg tablet (Topamax) 50 mg PO QHS #30 tabs 01/03/24 Allergies Allergy/AdvReac Type Severity Reaction Status Date / Time amlodipine Allergy Unknown Other (See Verified 03/19/24 06:25 Comment) aspirin Allergy Unknown Other (See Verified 03/19/24 06:25 Comment) benzonatate (From Tessalon Allergy Unknown Other (See Verified 03/19/24 06:25 Jose) Comment) ciprofloxacin Allergy Unknown Other (See Verified 03/19/24 06:25 Comment) codeine Allergy Unknown Other (See Verified 03/19/24 06:25 Comment) grape Allergy Unknown Other (See Verified 03/19/24 06:25 Comment) losartan Allergy Unknown Other (See Verified 03/19/24 06:25 Comment) nickel Allergy Unknown Other (See Verified 03/19/24 06:25 Comment) orange Allergy Unknown Other (See Verified 03/19/24 06:25 Comment) oxycodone (From Tylox) Allergy Unknown Other (See Verified 03/19/24 06:25 Comment) Penicillins Allergy Unknown Other (See Verified 03/19/24 06:25 Comment) potassium Allergy Unknown Other (See Verified 03/19/24 06:25 Comment) Sulfa (Sulfonamide Allergy Unknown Other (See Verified 03/19/24 06:25 Antibiotics) Comment) acetaminophen (From Tylox) Allergy Other (See Verified 03/19/24 06:25 Comment) latex Allergy Other (See Verified 03/19/24 06:25 Comment) lysol Allergy Unknown Other (See Uncoded 03/19/24 06:25 Comment) turnips Allergy Unknown Other (See Uncoded 03/19/24 06:25 Comment) wool Allergy Other (See Uncoded 03/19/24 06:25 Comment) General MICHA: 4 Review of Systems Narrative: Per HPI Exam Narrative Exam Narrative: Const: WDWN female in NAD, does appear anxious. VS per triage. HEENT: NC/AT. Normal facial exam. Neck: Supple. Trachea midline. Lungs: Normal respiratory effort. Neuro: A+O x 3. Normal speech, mentation, gait. Cranial nerves II - XII grossly intact. No gross motor or sensory deficit. Ext: No C/C/E. Skin: No rash or bull's-eye lesions. Slightly raised mildly tender apparent insect bite on the back of her neck. No significant erythema, warmth, fluctuance. Legs with multiple areas of small scabs also without erythema or warmth. Medical Decision Making Patient presenting to ED with complaint of multiple tick bites and shaking all over. She appears quite anxious and upset regarding the tick bites stating she has never been bit by a tick before. Her shaking appears to be anxiety related and despite trying to reassure her and that the likelihood of acquiring any tickborne diseases is minimal she continued to be upset and perseverating over the tick bites. We discussed a single dose of prophylaxis doxycycline and attempts to help provide her some reassurance. She has agreed to this. There is no evidence of cellulitis or abscess related to the bites. She is encouraged to use ibuprofen for discomfort. She is encouraged to follow-up with primary care. Return precautions are provided. Quality:SDOH Health Related Social Needs: No Data to Display PFSH All Active Problems (Updated 03/19/24 @ 06:35 by Kun Quiroz MD) Anxiety (Chronic) Tick bite (Acute) Migraine headache without aura (Acute) Left carpal tunnel syndrome (Acute) Frequent headaches (Acute) Medical History Chronic back pain Fibromyalgia Anxiety Depression PTSD (post-traumatic stress disorder) Vertigo Asthma Hypertension Hx of migraines Social History Smoking/Tobacco Use Status: Never Smoking risk assessment performed?: Yes Alcohol Intake: never Drug use: Never Substance use type: does not use Do you feel safe at home: Yes Do you feel safe in your relationship?: Yes
--- OUTSIDE RECORDS SUMMARY | 2024-03-19 06:24 | XMS_ITS | Encounter Summary ---
Author Organization [facility] Address [address] [place] [address] Care Team Providers Care Floor Sander Name Role Phone StewartGeorgie banda Pritesh MIRANDA Primary Care Provider + Encounter Details Date Type Department Care Team (Late st Contact Info) Description 08/18/2019 Orders Only [facility] [address] [place] [address] MD [address] [facility], [address] [place] [address] Social History Tobacco Use Types Packs/Day Years Used Date Smoking Tobacco: Never Smokeless Tobacco: Never Alcohol Use Standard Drinks/Week Comments Never 0 (1 standard drink = 0.6 oz pur e alcohol) AUDIT-C Answer Date Recorded Frequency of Alcohol Consumption Never 07/23/2019 Average Number of Drinks Not on file 019 Frequency of Binge Drinking Not on file 07/05 Sex and Gender Information Value Date Recorded Sex Assigned at Not on file Gender Identity Female 07/07/2019 11:20 EST Sexual Orientation Not on file documented as of this encounter Functional Status Functional Status Response Date of Assess ment Because of a physical, menta l, or emotional condition, does this person have difficulty doing errands alone such as visiting a doctor's office or shopping? No 07/23/2019 Cognitive Status Response Date of Assessm ent Because of a physical, menta l, or emotional condition, does this person have serious difficulty concentrating, remembering, or making decisions? No 07/23/2019 documented as of this encounter Plan of Treatment Not on file documented as of this encounter Visit Diagnoses Not on filedocumented in this encounter Discontinued Medications Medication Sig Discontinue Reason Start Date End Da te doxycycline (VIBRAMYCIN) 100 mg capsule TAKE ONE CAPSULE BY MOUTH TWICE A DAY FOR 14 DAYS Therapy completed 07/09/2019 08/18/2019 documented as of this encounter Care Teams Floor Sander Relationship Specialty Start Date End Date Georgie Stewart APRN [address] [place] [id number] PCP - General 07/07/19 documented as of this encounter
--- OUTSIDE RECORDS SUMMARY | 2024-03-19 06:24 | XMS_ITS | Encounter Summary ---
Author Organization [facility] Address [address] [place] [address] Care Team Providers Care Cyber Intel Planner Name Role Phone StewartGeorgie banda Pritesh MIRANDA Primary Care Provider + Reason for Visit * Reason Comments Follow-up S/P HYST Encounter Details Date Type Department Care Team (Late st Contact Info) Description 09/04/2019 9:40 EST Office Visit [facility] [address] [place] [address] MD [address] [facility] [address] [place] [address] Post-operative state (Primary Dx) Social History Tobacco Use Types Packs/Day Years Used Date Smoking Tobacco: Never Smokeless Tobacco: Never Alcohol Use Standard Drinks/Week Comments Never 0 (1 standard drink = 0.6 oz pur e alcohol) AUDIT-C Answer Date Recorded Frequency of Alcohol Consumption Never 07/23/2019 Average Number of Drinks Not on file 019 Frequency of Binge Drinking Not on file 07/05 Hunger Vital Sign Answer Date Recorded Worried About Running Out of Food in the Last Ye ar Never true 09/04/2019 Ran Out of Food in the Last Year Never true 09/04/2019 Sex and Gender Information Value Date Recorded [...] No 07/23/2019 documented as of this encounter Progress Notes * Swati Lane MD - 09/04/2019 0940 EST HPI: María Eelna Mantilla is a 34 y.o. here today [...] of liver Skin: Rash resolved with nystatin COIL CONNECTOR REPAIRER History: Patient's last menstrual period was 06/05/2019 [...] Allergies Allergen Reactions ??? Codeine Anaphylaxis ??? Ozwwnhj-Zjb-Dz-Acetaminophen Anaphylaxis ??? Sulfa (Sulfonamide Antibiotics) Anaphylaxis ??? Aspirin Other reaction(s): unsure of reaction ??? Uinta And Derivatives Other reaction(s): rash and hives [...] documented as of this encounter Visit Diagnoses Diagnosis Post-operative state- Primary Other postprocedural status documented in this encounter Historical Medications * This list may reflect changes made after this encounter. Medication Sig Dispensed Refills Start Date End Date omeprazole (PRILOSEC) 20 mg capsuleIndications:gastro esophageal reflux disease,heartburn Take 20 mg by mouth every morning. 10/07/2019 added in this encounter Care Teams Cyber Intel Planner Relationship Specialty Start Date End Date Georgie Stewart APRN [address] [place] [address] PCP - General 07/07/19 documented as of this encounter
--- OUTSIDE RECORDS SUMMARY | 2024-03-19 06:24 | XMS_ITS | Encounter Summary ---
Author Organization [facility] Address [address] [place] [address] Care Team Providers Care Airline Attendant Name Role Phone StewartGeorgie banda Pritesh MIRANDA Primary Care Provider + Encounter Details Date Type Department Care Team (Late st Contact Info) Description 09/09/2019 Results Only [facility] [phone] Lucas Turcios MD [address] [place] [phone] Social History Tobacco Use Types Packs/Day [...] on file documented as of this encounter Procedures Procedure Name Priority Date/Time Associated Diagnosis Comments URINALYSIS/COMPLETE - [facility] Routine 09/09/2019 4:20 EST COMPLETE BLOOD COUNT WITH DIFFERENTIAL (AUTO) Routine 09/09/2019 4:19 EST C REACTIVE PROTEIN Routine 09/09/2019 4: 19 EST COMPREHENSIVE METABOLIC PANEL (CMP) Routine 09/09/2019 4:19 EST documented in this encounter Results * URINALYSIS/COMPLETE - [facility] (09/09/2019 4:20 EST) URINE APPEARANCE - [facility] Clear CLEAR 09/09/2019 4:44 [facility] URINE BACTERIA - [facility] FEW 09/09/2019 4:50 [facility] URINE BILIRUBIN - DIPSTICK - [facility] 1+ NEGATIVE 09/09/2019 4:44 [facility] Comment: Unable to confirm positive urine bilirubin. If clinical correlation is inconsistent, consider serum bilirubin. URINE BLOOD - [facility] 3+ NEG 09/09/2019 4:44 [facility] URINE COLOR - [facility] Yellow YELLOW 09/09/2019 4:44 [facility] URINE GLUCOSE - DIPSTICK - [facility] Negative NEGATIVE 09/09/2019 4:44 [facility] URINE KETONE - [facility] Trace NEGATIVE 09/09/2019 4:44 [facility] URINE LEUK ESTERASE - [facility] 1+ NEG 09/09/2019 4:44 [facility] URINE NITRITE - DIPSTICK - [facility] Negative NEG 09/09/2019 4:44 [facility] URINE PH - [facility] 5.5 4.0 - 8.0 0 4:44 [facility] URINE PROTEIN - DIPSTICK - [facility] Trace NEG 09/09/2019 4:44 [facility] URINE RBC - [facility] 15-20 rbc/hpf 09/09/19 20 4:50 [facility] URCULTIF+? - [facility] Culture Ordered 09/09/2019 4:50 [facility] URINE SPECIFIC GRAVITY - [facility] >=1.030 1.001 - 1.035 09/09/2019 4:44 [facility] URINE SQUAMOUS CELLS - [facility] FEW NEG #/hpf 09/09/2019 4:50 [facility] URINE UROBILINOGEN - DIPSTICK - [facility] 0.2 0.2 - 1.0 09/09/2019 4:44 [facility] URINE WBC - [facility] 10-15 NEG wbc/hpf 020 4:50 [facility] 09/09/2019 4:20 EST 09/09/2019 4:24 EST Lucas Turcios MD CHEMISTRY & BL OOD GAS ORDERABLES Performing Organization Address [facility] Co de Phone Number [facility] * (ABNORMAL) C REACTIVE PROTEIN (09/09/2019 4:19 EST) C-Reactive Protein 10.2(H) <10.0 mg/L 09/09/2019 4:41 [facility] 09/09/2019 4:19 EST 09/09/2019 4:24 EST Lucas Turcios MD CHEMISTRY & BL OOD GAS ORDERABLES Performing Organization Address [facility]/ZIP Co de Phone Number [facility] * (ABNORMAL) COMPREHENSIVE METABOLIC PANEL (CMP) (09/09/2019 4:19 EST) Albumin % 4.0 3.4 - 4.9 g/dL 09/09/2019 4:41 [facility] ALKALINE PHOSPHATASE - [facility] 84 38 - 126 U/L 09/09/2019 4:41 [facility] BILIRUBIN TOTAL 0.2 0.2 - 1.3 mg/dL 09/09/2019 4:41 [facility] BUN - [facility] 21 10 - 26 mg/dL 09/09/2019 4:41 [facility] CALCIUM - [facility] 9.5 8.5 - 10.5 mg/dL 09/09/2019 4:41 [facility] Chloride 108 96 - 110 mmol/L 09/09/2019 4:41 [facility] CO2 Total 22 22 - 32 mEq/L 09/09/2019 4:41 [facility] CREATININE 0.77 0.52 - 1.04 mg/dL 09/09/2019 4:41 [facility] eGFR >60 09/09/2019 4:41 [facility] Comment: Chronic renal impairment is defined as GFR <60 Multiply result by 1.210 for patients. eGFR calculated using the IDMS-traceable MDRD Study Equation. ??(effective 07/06/2014) Anion Gap 9 0 - 18 09/09/2019 4:41 [facility] GLUCOSE - [facility] 112(H) 70 - 100 mg/dL 09/09/2019 4:41 [facility] Potassium 3.9 3.5 - 5.0 mEq/L 09/09/2019 4:41 [facility] Sodium 139 136 - 145 mEq/L 09/09/2019 4:41 [facility] TOTAL PROTEIN - [facility] 7.3 6.2 - 8.2 gm/dL 09/09/2019 4:41 [facility] SGOT/AST - [facility] 18 14 - 36 U/L 09/09/2019 4:41 [facility] SGPT/ALT - [facility] 29 9 - 52 U/L 0 4:41 [facility] 09/09/2019 4:19 EST 09/09/2019 4:24 EST Lucas Turcios MD CHEMISTRY & BL OOD GAS ORDERABLES [facility] * (ABNORMAL) COMPLETE BLOOD COUNT WITH DIFFERENTIAL (AUTO) (09/09/2019 4:19 EST) Gran # 4.4 2.2 - 8.85 10e3/uL 09/09/2019 4:37 [facility] BASO # - [facility] 0.06 0.01 - 0.11 10e/uL 09/09/2019 4:37 [facility] BASO % - [facility] 1 0 - 2 % 09/09/2019 4:37 [facility] EOS # - [facility] 0.40 0.03 - 0.61 10e3/ul 09/09/2019 4:37 [facility] EOS % - [facility] 5 0 - 5 % 09/09/2019 4:37 [facility] GRAN % - [facility] 56.4 40 - 80 % 09/09/2019 4:37 [facility] HEMATOCRIT - [facility] 40.6 34.9 - 44.4 % 09/09/2019 4:37 [facility] HEMOGLOBIN - [facility] 12.7 11.6 - 15.2 g/dl 09/09/2019 4:37 [facility] IG# - [facility] 0.04 0 - 0.7 10e3/uL 09/09/2019 4:37 [facility] IG% - [facility] 0.5 0 - 0.9 % 09/09/2019 4:37 [facility] LYMPH # - [facility] 2.4 1.09 - 3.3 10e3/ul 09/09/2019 4:37 [facility] LYMPH% - [facility] 31.1 20 - 40 % 09/09/2019 4:37 [facility] MEAN CORPUSCULAR HGB - [facility] 27.0 26.7 - 33.3 pg 09/09/2019 4:37 [facility] MEAN CORPUSCULAR HGB CONC - [facility] 31.3(L) 32.1 - 35.9 g/dL 09/09/2019 4:37 [facility] MEAN CELL VOLUME - [facility] 86.2 81 - 98 fl 09/09/2019 4:37 [facility] MONO # - [facility] 0.5 0.1 - 0.8 10e3/uL 09/09/2019 4:37 [facility] MONO% - [facility] 6.1 0 - 12 % 09/09/2019 4:37 EST [facility] PLATELET COUNT 346 141 - 377 10e3/ul 09/09/2019 4:37 EST [facility] RED BLOOD COUNT - [facility] 4.71 3.86 - 5.04 10e3/ul 09/09/2019 4:37 EST [facility] RED CELL DISTRI WIDTH - [facility] 12.7 <14.7 % 09/09/2019 4:37 EST [facility] WHITE BLOOD COUNT - [facility] 7.9 4.0 - 12.4 10e3/ul 09/09/2019 4:37 EST [facility] 09/09/2019 4:19 EST 09/09/2019 4:24 EST Lucas Turcios MD HEMATOLOGY & P F4 ORDERABLES [facility] documented in this encounter Visit Diagnoses Not on filedocumented in this encounter Care Teams Airline Attendant Relationship Specialty Start Date End Date Georgie Stewart, FISH TRAPPER [address] [place] [address] PCP - General 07/07/19 documented as of this encounter
--- OUTSIDE RECORDS SUMMARY | 2024-03-19 06:24 | XMS_ITS | Encounter Summary ---
Author Organization [facility] Address [address] [place] [address] Care Team Providers Care Oyster Sorter Name Role Phone StewartGeorgie banda Pritesh MIRANDA Primary Care Provider + Encounter Details Date Type Department Care Team (Late st Contact Info) Description 08/19/2019 Results Only [facility] [phone] MD [address] [place] [address], [address] [place] [address] Social History Tobacco Use Types [...] Priority Date/Time Associated Diagnosis Comments URINALYSIS/COMPLETE - [facility] Routine 08/19/2019 12:04 EST COMPLETE BLOOD COUNT WITH DIFFERENTIAL (AUTO) Routine 08/19/2019 2:20 EST BASIC METABOLIC PANEL (BMP) Routine 08/19/2019 2:20 EST documented in this encounter Results * URINALYSIS/COMPLETE - [facility] (08/19/2019 12:04 EST) URINE APPEARANCE - [facility] Cloudy CLEAR 08/19/2019 12:31 [facility] URINE BACTERIA - CV MANY 08/19/2019 12:57 [facility] URINE BILIRUBIN - DIPSTICK - [facility] Negative NEGATIVE 08/19/2019 12:31 [facility] URINE BLOOD - [facility] 3+ NEG 08/19/2019 12:31 [facility] URINE COLOR - [facility] Yellow YELLOW 08/19/2019 12:31 [facility] URINE GLUCOSE - DIPSTICK - [facility] Negative NEGATIVE 08/19/2019 12:31 [facility] URINE KETONE - CV Negative NEGATIVE 08/19/2019 12:31 [facility] URINE LEUK ESTERASE - [facility] 3+ NEG 08/19/2019 12:31 [facility] URINE NITRITE - DIP[facility] - [facility] Negative NEG 08/19/2019 12:31 [facility] URINE PH - [facility] 7.0 4.0 - 8.0 9 12:31 [facility] URINE PROTEIN - DIPSTICK - CV Negative NEG 08/19/2019 12:31 [facility] URINE RBC - [facility] TNTC rbc/hpf 08/19/2019 12:57 [facility] URCULTIF+? - CV Contaminated 08/19/2019 12:57 [facility] Comment: Specimen contaminated. Please recollect a clean catch sample if a culture is indicated. URINE SPECIFIC GRAVITY - [facility] <=1.005 1.001 - 1.035 08/19/2019 12:31 [facility] URINE SQUAMOUS CELLS - [facility] TNTC NEG #/hpf 08/19/2019 12:57 [facility] URINE UROBILINOGEN - DIPSTICK - [facility] 0.2 0.2 - 1.0 08/19/2019 12:31 [facility] URINE WBC - [facility] 5-10 NEG wbc/hpf 08/19/2019 12:57 [facility] 08/19/2019 12:0 4 EST 08/19/2019 12:18 EST [facility] - 08/19/2019 12:57 EST Does PT Have a Latex Allergy? YES Gold Villar MD CHEMISTRY & BLOOD GA S ORDERABLES [facility] * (ABNORMAL) BASIC METABOLIC PANEL (BMP) (08/19/2019 2:20 EST) BUN - [facility] 9(L) 10 - 26 mg/dL 08/19/2019 2:49 [facility] CALCIUM - [facility] 8.6 8.5 - 10.5 mg/dL 08/19/2019 2:49 [facility] Chloride 107 96 - 110 mmol/L 08/19/2019 2:49 [facility] CO2 Total 22 22 - 32 mEq/L 08/19/2019 2:49 [facility] CREATININE 0.77 0.52 - 1.04 mg/dL 08/19/2019 2:49 [facility] eGFR >60 08/19/2019 2:49 [facility] Comment: Chronic renal impairment is defined as GFR <60 Multiply result by 1.210 for patients. eGFR calculated using the IDMS-traceable MDRD Study Equation. ??(effective 07/06/2014) Anion Gap 9 0 - 18 08/19/2019 2:49 [facility] GLUCOSE - [facility] 123(H) 70 - 100 mg/dL 08/19/2019 2:49 [facility] Potassium 3.4(L) 3.5 - 5.0 mEq/L 08/19/2019 2:49 [facility] Sodium 138 136 - 145 mEq/L 08/19/2019 2:49 [facility] 08/19/2019 2:20 EST 08/19/2019 2:[address] MD CHEMISTRY & BLOOD GA S ORDERABLES [facility] * (ABNORMAL) COMPLETE BLOOD COUNT WITH DIFFERENTIAL (AUTO) (08/19/2019 2:20 EST) ABSOLUTE NEUTROPHIL COUN - [facility] 6.2 2.2 - 8.85 10e3/uL 08/19/2019 2:37 [facility] BASO # - [facility] 0.02 0.01 - 0.11 10e/uL 08/19/2019 2:37 [facility] BASO % - [facility] 0 0 - 2 % 08/19/2019 2:37 [facility] EOS # - [facility] 0.06 0.03 - 0.61 10e3/ul 08/19/2019 2:37 [facility] EOS % - [facility] 1 0 - 5 % 08/19/2019 2:37 [facility] GRAN % - [facility] 68.1 40 - 80 % 08/19/2019 2:37 [facility] HEMATOCRIT - [facility] 33.0(L) 34.9 - 44.4 % 08/19/2019 2:37 [facility] HEMOGLOBIN - [facility] 10.6(L) 11.6 - 15.2 g/dl 08/19/2019 2:37 [facility] IG# - [facility] 0.04 0 - 0.7 10e3/uL 08/19/2019 2:37 [facility] IG% - [facility] 0.4 0 - 0.9 % 08/19/2019 2:37 [facility] LYMPH # - [facility] 1.9 1.09 - 3.3 10e3/ul 08/19/2019 2:37 [facility] LYMPH% - [facility] 21.3 20 - 40 % 08/19/2019 2:37 [facility] MEAN CORPUSCULAR HGB - [facility] 28.4 26.7 - 33.3 pg 08/19/2019 2:37 [facility] MEAN CORPUSCULAR HGB CONC - [facility] 32.1 32.1 - 35.9 g/dL 08/19/2019 2:37 [facility] MEAN CELL VOLUME - [facility] 88.5 81 - 98 fl 08/19/2019 2:37 [facility] MONO # - [facility] 0.8 0.1 - 0.8 10e3/uL 08/19/2019 2:37 [facility] MONO% - [facility] 9.3 0 - 12 % 08/19/2019 2:37 [facility] PLATELET COUNT 264 141 - 377 10e3/ul 08/19/2019 2:37 [facility] RED BLOOD COUNT - [facility] 3.73(L) 3.86 - 5.04 10e3/ul 08/19/2019 2:37 [facility] RED CELL DISTRI WIDTH - [facility] 12.3 <14.7 % 08/19/2019 2:37 [facility] WHITE BLOOD COUNT - [facility] 9.0 4.0 - 12.4 10e3/ul 08/19/2019 2:37 [facility] 08/19/2019 2:20 EST 08/19/2019 2:[address] MD HEMATOLOGY & PF4 ORD ERABLES [facility] Organization Address City/State/ZIP Co de Phone Number [facility] documented in this encounter Visit Diagnoses Not on filedocumented in this encounter Care Teams Oyster Sorter Relationship Specialty Start Date End Date Georgie Stewart, MATERIALS RESEARCH ENGINEER [address] [place] [address] PCP - General 07/07/19 documented as of this encounter
--- OUTSIDE RECORDS SUMMARY | 2024-03-19 06:24 | XMS_ITS | Encounter Summary ---
Author Organization [facility] Address [address] [place] [address] Care Team Providers Care Computer Recycling Worker Name Role Phone Georgie Stewart RUBEN Primary Care Provider + Reason for Visit * Reason Onset Date Comments Prior Auth, Other (i.e. radi ology, etc.) 08/11/2019 PER MAILED MEDICAID [place] APPRO DASHAWN [id number] Encounter Details Date Type Department Care Team (Late st Contact Info) Description 08/11/2019 Telephone [facility] [address] [place], [place] [phone]ati [address] MD [address] [facility], [address] [place] [address] Prior Auth, Other (i.e. radiology, etc.) (PER [place]ED [place]PROVED [id number]) Social History Tobacco Use Types Packs/Day Years [...] No 07/23/2019 documented as of this encounter Miscellaneous Notes * Telephone Encounter - Kalani Cordova - 08/11/2019 1047 EST PER MAILED MEDICAID CT APPROVED [id number] documented in this encounter Plan of Treatment Not on file documented as of this encounter Visit Diagnoses Not on filedocumented in this encounter Care Teams Computer Recycling Worker Relationship Specialty Start Date End Date Georgie Stewart, LICENSING SPECIALIST [address] [place] [address] PCP - General 07/07/19 documented as of this encounter
--- OUTSIDE RECORDS SUMMARY | 2024-03-19 06:24 | XMS_ITS | Encounter Summary ---
Author Organization [facility] Address [address] [place] [address] Care Team Providers Care Agriculture Department Chair Name Role Phone StewartGeorgie banda Pritesh MIRANDA Primary Care Provider + Encounter Details Date Type Department Care Team (Late st Contact Info) Description 09/09/2019 Historical Results Only [facility] - Main [address] [address] Lucas Turcios MD [address] [place] [phone] Social History Tobacco Use Types Packs/Day [...] Procedure Name Priority Date/Time Associated Diagnosis Comments BACTERIAL CULTURE, URINE Routine 09/09/2019 4:20 EST documented in this encounter Results * BACTERIAL CULTURE, URINE (09/09/2019 4:20 EST) USUAL UROGENITAL ARMIN - [facility] UUV 09/10/2019 12:26 EST [facility] CitrateConcentration 10,000-1 00,000 CFU/ML 09/10/2019 12:26 EST [facility] 09/09/2019 4:20 EST 09/09/2019 4:51 EST Comment:VOID Lucas Turcios MD MICROBIOLOGY - GENERAL ORDERABLES [facility] documented in this encounter Visit Diagnoses Not on filedocumented in this encounter Care Teams Agriculture Department Chair Relationship Specialty Start Date End Date Georgie Stewart, HELICOPTER MECHANIC [address] [place] [phone] PCP - General 07/07/19 documented as of this encounter
--- OUTSIDE RECORDS SUMMARY | 2024-03-19 06:24 | XMS_ITS | Encounter Summary ---
Author Organization [facility] Address [address] [place] [address] Care Team Providers Care Air Compressor Mechanic Name Role Phone StewartGeorgie banda Pritesh LIFEGUARD Primary Care Provider + Encounter Details Date Type Department Care Team (Late st Contact Info) Description 08/18/2019 Results Only [facility] [phone] MD [address] [place] [address], [address] [place] [address] Social History Tobacco Use Types [...] as of this encounter Miscellaneous Notes * Result Encounter Note - Swati Lane MD - 08/18/2019 1504 EST Reviewed with pt. documented in this encounter Plan of Treatment Not on file documented as of this encounter Procedures Procedure Name Priority Date/Time Associated Diagnosis Comments HEMOGLOBIN AND HEMATOCRIT - CV Routine 08/18/2019 14:53 EST SURGICAL PATHOLOGY Routine 08/18/2019 documented in this encounter Results * HEMOGLOBIN AND HEMATOCRIT - [facility] (08/18/2019 14:53 EST) HEMATOCRIT - [facility] 36.7 34.9 - 44.4 % 08/18/2019 15:03 EST [facility] HEMOGLOBIN - [facility] 11.8 11.6 - 15.2 g/dl 08/18/2019 15:03 EST [facility] 08/18/2019 14:5 3 EST 08/18/2019 14:[address] MD CHEMISTRY & BLOOD GA S ORDERABLES [facility] * SURGICAL PATHOLOGY (08/18/2019) 08/18/2019 08/18/2019 13: 00 EST Narrative [facility] - 08/21/2019 10:15 EST ----- ------- Name: MARÍA ELENA FORD Pritesh ? : 81 ?Age/Sex: 34/F ?Unit#: [id number] ? Loc: SDS ? Status: DEP SDC ?? Reg Date: 08/18/19 ? Pt.Phone Number: ? ----- ------- Specimen: [id number] ? STATUS: SOUT ?Spec Date:08/18/19 ? Physician Copies: ?Swati Lane MD ?? Tissues: A ?? Uterus other than neoplastic (UTERUS, CERVIX, BILATERAL TU) ??Georgie Stewart CPT: 54950 ?? Units: ??1 ?FINAL DIAGNOSIS ? UTERUS, CERVIX, BILATERAL FALLOPIAN TUBES, AND RIGHT OVARY, HYSTERECTOMY, ? BILATERAL SALPINGECTOMY ?? RIGHT OOPHORECTOMY; ? - Cervix: Focal acute endocervicitis. ? - Endometrium: ? - Detached fragments of benign endometrial polyp. ? - Inactive endometrium with focal cystic changes and pseudodecidualized ? stroma consistent with exogenous hormonal effect, negative for hyperplasia or ? neoplasia. ? - Myometrium: No pathological features. ? - Serosa: No pathological features. ? - Ovary, right: Cystic follicles. ? - Fallopian tubes: ? - Status post tubal ligation. ? - Benign paratubal cysts. ? GROSS DESCRIPTION ? Received in formalin, labeled with the patient's name María Elena Ford and ? uterus, right and left tubes, right ovary is a 163-gram uterus with attached ? right ovary and fallopian tube. ??The uterus measures 9.2 cm cervix- fundus, 6.5 ? cornu-cornu, and 4.6 cm anterior-posterior. ??The cervix measures 3.7 x 3.3 x [...] x ? 0.8 cm in diameter. ??Also received in the same container are two portions of ? presumably left fallopian tube consisting of a detached fimbriated end ? measuring 1.6 x 1.1 x 0.4 cm and the second portion consisting of disrupted ? tube with two cysts. ??The disrupted tube measures 3.6 cm in length x 0.6 cm in ? diameter. ??As previously mentioned, there are two cysts which measure 0.8 and ? 1.0 cm in greatest dimension attached to the serosal surface of the tube. ??The ? uterine serosa shows focal areas of surgical defects but is generally smooth ? and glistening. The uterus is opened along the anterior-posterior aspect. The ? uterus is serially sectioned revealing a fleshy slightly hemorrhagic ? endometrium which measures up to 0.3 cm in thickness. The myometrium ranges ? from 1.3 to 2.3 cm in thickness. ??The ovary is bivalved revealing multiple ----- ------- Patient: MARÍA ELENA FORD ? #[id number] ? (Continued) ----- ------- Specimen: [id number] ? Received: 08/18/19-1300 ?(Continued) ? GROSS DESCRIPTION ?(Continued) ? cortical cysts ranging from 0.1 cm to 0.7 cm in greatest dimension. ??Serial ? sections of the right fallopian tube reveals a pinpoint lumen. ??Serial sections ? of the left fallopian tube also reveal a pinpoint lumen. ??Brake Lining Finisher Asbestos ? section sections are submitted as follows: ?1: ?? Anterior cervix and portion of detached endometrium, ?2: ?? Anterior lower uterine segment, ?3: ?? Anterior endomyometrium of body, ?4: ?? Anterior endomyometrium of fundus, ?5: ?? Posterior cervix, ?6: ?? Posterior lower uterine segment, ?7: ?? Posterior endomyometrium of body, ?8: ?? Posterior endomyometrium of fundus, ?9: ?? Right ovary, ?10-11: ?Right fallopian tube, ?12-13: ?Left fallopian tube and cysts in 13. ??PV ?? PREOP DX/CLINICAL HISTORY ?Dysfunctional uterine bleeding Signed ____(signature on file)____ Domenica Cobos 08/21/19 ?? By the signature above, the attending physician certifies that he/she has personally conducted a gross and/or microscopic examination of the described specimens and rendered or confirmed the above diagnosis. Test Performed by [facility], [address] [place] [id number] N[address] Welter: Yee Hines MD PHD ----- ------- Swati Lane MD PATHOLOGY ORDERABLES [facility] documented in this encounter Visit Diagnoses Not on filedocumented in this encounter Care Teams Air Compressor Mechanic Relationship Specialty Start Date End Date Georgie Stewart, [facility] [place] [id number] PCP - General 07/07/19 documented as of this encounter
--- OUTSIDE RECORDS SUMMARY | 2024-03-19 06:24 | XMS_ITS | Encounter Summary ---
Author Organization [facility] Address [address] [place] [address] Care Team Providers Care Jig Worker Name Role Phone Terry Georgie Pritesh MIRANDA Primary Care Provider + Encounter Details Date Type Department Care Team (Late st Contact Info) Description 05/20/[address] [facility] Pathology & Laboratory Medicine - [facility] [address] [place] [address] Outr Resulting Lab, Provider Social History Tobacco Use Types Packs/Day Years [...] in the Last Year Never true 09/04/2019 Interpersonal Safety Answer Date Record ed Physically Hurt Never 04/04/2020 Verbally Threaten Not on file 04/04/2020 Sex and Gender Information Value Date Recorded [...] Procedure Name Priority Date/Time Associated Diagnosis Comments RHEUMATOID FACTOR Routine 05/19/2022 12: 25 EDT ANTI NUCLEAR AB (TONY), IFA Routine 05/19/2022 12:25 EDT documented in this encounter Results * RHEUMATOID FACTOR (05/19/2022 12:25 EDT) Rheumatoid Factor <8.6 <12.0 IU/mL 05/21/2022 17:09 EDT [facility] Blood VENOUS BLOOD / Unknown 05/19/2022 12:25 EDT 05/21/2022 16:24 EDT Provider Outr Resulting Lab CHEMISTRY & BLOOD GAS ORDERABLES Performing Organization Address [facility] Co de Phone Number [facility] [address] [place] [address] * ANTI NUCLEAR AB (TONY), IFA (05/19/2022 12:25 EDT) TONY Interpretation Negative Negative 2021 15:06 EDT [facility] Comment:No titer performed, TONY Screen is negative. Blood VENOUS BLOOD / Unknown 05/19/2022 12:25 EDT 05/21/2022 16:24 EDT Narrative [facility] - 05/22/2022 15:06 EDT Results were obtained with the INOVA NOVA Lite HEp-2 TONY Kit by indirect immunofluorescence. Provider Outr Resulting Lab IMMUNOLOGY A ND SEROLOGY ORDERABLES Performing Organization Address [facility] Co de Phone Number [facility] [address] [place] [address] documented in this encounter Visit Diagnoses Not on filedocumented in this encounter Care Teams Jig Worker Relationship Specialty Start Date End Date Georgie Stewart, RUBEN [address] [place] [address] PCP - General 07/07/19 documented as of this encounter
--- OUTSIDE RECORDS SUMMARY | 2024-03-19 06:24 | XMS_ITS | Encounter Summary ---
Author Organization [facility] Address [address] [place] [address] Care Team Providers Care Childcare Provider Name Role Phone Georgie Stewart RUBEN Primary Care Provider + Reason for Visit * Reason Onset Date Comments Medications Refill 08/21/2019 Pt is wonderi ng if provider could prescribe ibprophin the over the counter isn't working, Pt had surgery on Sunday, pain is every 5 hours. [facility] in [place] is her preferred pharmacy. Encounter Details Date Type Department Care Team (Late st Contact Info) Description 08/21/2019 Refill [facility] [address] [place] [address] MD [address] [facility], [address] [place] [address] Medications Refill (Pt is wondering if provider could prescribe ibprophin the over the counter isn't working, Pt had surgery on Sunday, pain is every 5 hours. [facility] in [place] is her preferred pharmacy. ) Social History Tobacco Use Types Packs/Day [...] No 07/23/2019 documented as of this encounter Ordered Prescriptions Prescription Sig Dispensed Refills Start Date End Da te ibuprofen (MOTRIN) 800 mg tablet Take 1 Tab by mouth every 8 hours as needed for up to 7 days for Pain. 20 Tab 08/21/2019 08/28/2019 documented in this encounter Miscellaneous Notes * Addendum Note - Jose L Hancock MD - 08/21/2019 1832 ESTAddended by: JOSE L HANCOCK on: 08/21/2019 18:32 Modules accepted: Orders * Telephone Encounter - Jose L Hancock MD - 08/21/2019 1830 EST Spoke with pt and she would like a higher dose of ibuprofen so will send to [facility] in [place]. * Telephone Encounter - Rani Reyes, DARRELL - 08/21/2019 1540 EST Jose L, pt states she had laparoscopic hyst on 08/18/19, went home yesterday. She is taking ibuprofen 600mg every 6 hours and dilaudid prn, has taken three today. Pt states she is in severe pain by the 5th hour, ibuprofen isn't lasting long enough. Pt is requesting prescription strength ibuprofen be sent in to pharmacy if possible. (I was wondering about adding tylenol 650 w/the ibuprofen every 6 hours, not sure if you were doing this). Jose L Bland * Telephone Encounter - Anushka Reis - 08/21/2019 1311 EST Pt is wondering if provider could prescribe ibprophin the over the counter isn't working, Pt had surgery on Sunday, pain is every 5 hours. [facility] in [place] is her preferred pharmacy. documented in this encounter Plan of Treatment Not on file documented as of this encounter Visit Diagnoses Not on filedocumented in this encounter Discontinued Medications Medication Sig Discontinue Reason Start Date End Da te ibuprofen (MOTRIN) 600 mg tablet Take 600 mg by mouth every 6 hours as needed for Pain. Alternate therapy 08/21/2019 documented as of this encounter Care Teams Childcare Provider Relationship Specialty Start Date End Date Georgie Stewart, REPAIR COIL WINDER [address] [place] [address] PCP - General 07/07/19 documented as of this encounter
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
--- OUTSIDE RECORDS SUMMARY | 2024-03-19 06:24 | XMS_ITS | Encounter Summary ---
Author Organization [facility] Address [address] [place] [address] Care Team Providers Care Shaving Machine Operator Name Role Phone StewartGeorgie banda Pritesh MIRANDA Primary Care Provider + Encounter Details Date Type Department Care Team (Late st Contact Info) Description 08/20/2019 Results Only Imaging [facility] [place] Results [address] [place] [address] MD [address] [facility], [address] [place] [address] Social History Tobacco Use Types [...] Procedure Name Priority Date/Time Associated Diagnosis Comments US EXTREMITY 08/20/2019 14:29 EST documented in this encounter Results * US EXTREMITY (08/20/2019 14:29 EST) Anatomical Region Laterality Modality Other 08/20/2019 14:2 6 EST Narrative 08/20/2019 14:29 EST ? EXAM: ULTRASOUND/DOPPLER VEIN LOWER EXT. ??EX. D/ (7236) ? CLINICAL INFORMATION: ? SLLL - Swelling left lower extr. ? INDICATION: SLLL - Swelling left lower extr., post-op TOTAL ? LAPAROSCOPIC HYSTERECTOMY ? TECHNIQUE: Left lower extremity venous ultrasound was performed. ? Color flow Doppler was obtained. ? Comparison: None. ? Findings: The major venous structures of the left lower extremity are ? widely patent. Normal augmentation is noted. Normal compression is ? seen. ? Impression: ? 1. No left lower extremity DVT detected. ? REPORT SIGNED IN OTHER VENDOR SYSTEM 08/20/2019 ?Reported By: Dar Bolivar MD ? CC: ? Transcribed Date/Time: 08/20/2019 (1424) ? Geophysical Computer: ? Printed Date/Time: 08/20/2019 (1430) ? PAGE 1 ? Signed Report ? Procedure Note Dar Bolivar MD - 12/18/2019 EXAM: ULTRASOUND/DOPPLER VEIN LOWER EXT. EX. D/ (9866) CLINICAL INFORMATION: SLLL - Swelling left lower extr. INDICATION: SLLL - Swelling left lower extr., post-op TOTAL LAPAROSCOPIC HYSTERECTOMY TECHNIQUE: Left lower extremity venous ultrasound was performed. Color flow Doppler was obtained. Comparison: None. Findings: The major venous structures of the left lower extremityare widely patent. Normal augmentation is noted. Normal compression is seen. Impression: 1. No left lower extremity DVT detected. REPORT SIGNED IN OTHER VENDOR SYSTEM 08/20/2019 Reported By: Dar Bolivar MD CC: Transcribed Date/Time: 08/20/2019 (8596) Geophysical Computer: Printed Date/Time: 08/20/2019 (6715) [address] MD IMG US ORDERABLES documented in this encounter Visit Diagnoses Not on filedocumented in this encounter Care Teams Shaving Machine Operator Relationship Specialty Start Date End Date Georgie Stewart, TIGER MACHINE OPERATOR [address] [place] [address] PCP - General 07/07/19 documented as of this encounter
--- OUTSIDE RECORDS SUMMARY | 2024-03-19 06:24 | XMS_ITS | Referral Summary ---
Author Organization [facility] Address [address] [place] [address] Care Team Providers Care Utilities Ground Worker Name Role Phone TerryGeorgie Pritesh MIRANDA Primary Care Provider + Allergies Active Allergy Reactions Criticality Noted Date Comments Aspirin 04/02/2019 Other reaction(s): unsure of reaction [place] And Derivatives 04/02/2019 Other reaction(s): rash and hives and GI S/SX Codeine Anaphylaxis High 04/02/2019 Fzqomke-Qhg-Zn-Acetaminophe n Anaphylaxis High 04/02/2019 Grape 04/02/2019 Other [...] Liver hemangioma 07/23/2019 Overview: Seeing GI 08/29/19 Social History Tobacco Use Types Packs/Day Years [...] 11:20 EST Sexual Orientation Not on file Last Filed Vital Signs Vital Sign Reading [...] Body Mass Index 38.26 10/07/2019 1024 EST Functional Status Functional Status Response Date of [...] concentrating, remembering, or making decisions? No 07/23/2019 Plan of Treatment Not on file Care Teams Utilities Ground Worker Relationship Specialty Start Date End Date Georgie Stewart, CARPENTER'S ASSISTANT [address] [place] [phone] PCP - General 07/07/19
--- OUTSIDE RECORDS SUMMARY | 2024-03-19 06:24 | XMS_ITS | Encounter Summary ---
Author Organization [facility] Address [address] [place] [address] Care Team Providers Care Help Desk Associate Name Role Phone StewartGeorgie banda Pritesh MIRANDA Primary Care Provider + Reason for Visit * Reason Comments Pre-op Exam Encounter Details Date Type Department Care Team (Latest Contact Info) Description 07/23/2019 14:00 EST Office Visit [facility] - [facility] [address] [place] [address] MD [address] [facility], [address] [place] [address] Dysfunctional uterine bleeding (Primary Dx); Liver hemangioma; Anxiety and depression Social History Tobacco Use Types Packs/Day Years [...] Progress Notes * Swati Lane MD - 07/23/2019 1400 EST [...] spine center, PCP, had abdominal u/s with nonspecific liver findings, and has apt scheduled with GI. ROS: Review of Systems Constitutional: Positive for malaise/fatigue. Respiratory: Negative. Cardiovascular: Negative. Gastrointestinal: Has apt to see GI d/t u/s findings of hemangiomas, cysts, hepatosteatosis Musculoskeletal: Positive for back pain. Skin: Negative. Endo/Heme/Allergies: Negative. Psychiatric/Behavioral: Positive for depression. 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 Menses: irregular and heavy STI's: none Sexual activity: yes, with [facility] male partner Contraception: female sterilization procedure Cervical [...] Allergies Allergen Reactions ??? Codeine Anaphylaxis ??? Srhsucr-Yom-Ea-Acetaminophen Anaphylaxis ??? Sulfa (Sulfonamide Antibiotics) Anaphylaxis ??? Aspirin Other reaction(s): unsure of reaction ??? [place] And Derivatives Other reaction(s): rash and hives [...] MD documented in this encounter Miscellaneous Notes * Assessment & Plan Note - Swati Lane [...] if any possible cause of pain found. * Assessment & Plan Note - Swati Lane [...] this encounter Visit Diagnoses Diagnosis Dysfunctional uterine bleeding- Primary Other disorder of menstruation and other abnormal bleeding from female genital tract Liver hemangioma Hemangioma of intra-abdominal structures Anxiety and depression Dysthymic disorder documented in this encounter Historical Medications * This list may reflect changes made after this encounter. Medication Sig Dispensed Refills Start Date End Date albuterol 90 mcg/actuation inhaler Inhale 2 Puffs as directed every 4 hours as needed for Wheezing. busPIRone (BUSPAR) 10 mg tablet 2 tab(s) orally am and hs fluticasone propionate (FLOVENT HFA) 110 mcg/actuation inhaler 2 puff(s) inhaled 2 times a day montelukast (SINGULAIR) 10 mg tablet Take 20 mg by mouth daily. ibuprofen (MOTRIN) 600 mg tablet Take 600 mg by mouth every 6 hours as needed for Pain. 08/21/2019 doxycycline (VIBRAMYCIN) 100 mg capsule TAKE ONE CAPSULE BY MOUTH TWICE A DAY FOR 14 DAYS 0 07/09/2019 08/18/2019 added in this encounter Care Teams Help Desk Associate Relationship Specialty Start Date End Date Georgie Stewart APRN [address] [place] [phone] PCP - General 07/07/19 documented as of this encounter
--- OUTSIDE RECORDS SUMMARY | 2024-03-19 06:24 | XMS_ITS | Encounter Summary ---
Author Organization [facility] Address [address] [place] [address] Care Team Providers Care Irrigation Supervisor Name Role Phone Georgie Stewart APRN Primary Care Provider + Encounter Details Date Type Department Care Team (Latest Contact Info) Description 10/07/2019 Travel Social History Tobacco Use [...] on filedocumented in this encounter Care Teams Irrigation Supervisor Relationship Specialty Start Date End Date Georgie Stewart APRN [address] [place] [place] [address] PCP - General 07/07/19 documented as of this encounter
--- OUTSIDE RECORDS SUMMARY | 2024-03-19 06:24 | XMS_ITS | Encounter Summary ---
Author Organization [facility] Address [address] [place] [address] Care Team Providers Care Cash Grain Grower Name Role Phone StewartGeorgie banda Pritesh MIRANDA Primary Care Provider + Encounter Details Date Type Department Care Team (Late st Contact Info) Description 08/15/2019 Results Only [facility]- [facility] [phone] MD [address] [place] [address], [address] [place] [address] Social History Tobacco Use Types [...] Procedure Name Priority Date/Time Associated Diagnosis Comments [facility] Routine 08/15/2019 7: 32 EST COMPLETE BLOOD COUNT WITH DIFFERENTIAL (AUTO) Routine 08/15/2019 7:32 EST TYPE AND SCREEN Routine 08/15/2019 7:32 EST documented in this encounter Results * TYPE AND SCREEN (08/15/2019 7:32 EST) [facility] O Positive [facility] Antibody Screen NEGATIVE [facility] Specimen Expires: 08/18/19 AT 23:59 [facility] Comment: PATIENT'S RESPONSES INDICATE A HISTORY OF SURGERY, TRANSFUSION OR WITHIN THE LAST 3 MONTHS. FOR BLOOD PRODUCTS, THIS SPECIMEN WILL OUTDATE 72 HOURS FROM THE TIME IT WAS COLLECTED. ??ANY BLOOD PRODUCTS ORDERED AFTER 72 HOURS MUST BE WORKED UP ON A NEW SPECIMEN. 08/15/2019 7:32 EST 08/15/2019 7:32 EST Narrative [facility] - 08/15/2019 7:26 EST Does PT Have a Latex Allergy? YES IS THIS A PREOPERATIVE PATIENT? N Swati Lane MD BLOOD BANK TESTS [facility] * [facility] (08/15/2019 7:32 EST) [facility] NEG 08/15/2019 9:28 EST [facility] 08/15/2019 7:32 EST 08/15/2019 7:32 EST Narrative [facility] - 08/15/2019 9:28 EST Does PT Have a Latex Allergy? YES Enter/Edit CPT and ICD codes? N Swati Lane MD HEMATOLOGY & PF4 ORD ERABLES [facility] * (ABNORMAL) COMPLETE BLOOD COUNT WITH DIFFERENTIAL (AUTO) (08/15/2019 7:32 EST) ABSOLUTE NEUTROPHIL COUN - [facility] 2.7 2.2 - 8.85 10e3/uL 08/15/2019 8:48 [facility] BASO # - [facility] 0.04 0.01 - 0.11 10e/uL 08/15/2019 8:48 [facility] BASO % - [facility] 1 0 - 2 % 08/15/2019 8:48 [facility] EOS # - [facility] 0.08 0.03 - 0.61 10e3/ul 08/15/2019 8:48 [facility] EOS % - [facility] 2 0 - 5 % 08/15/2019 8:48 [facility] GRAN % - [facility] 56.7 40 - 80 % 08/15/2019 8:48 [facility] HEMATOCRIT - [facility] 40.7 34.9 - 44.4 % 08/15/2019 8:48 [facility] HEMOGLOBIN - [facility] 13.0 11.6 - 15.2 g/dl 08/15/2019 8:48 [facility] IG# - [facility] 0.02 0 - 0.7 10e3/uL 08/15/2019 8:48 [facility] IG% - [facility] 0.4 0 - 0.9 % 08/15/2019 8:48 [facility] LYMPH # - [facility] 1.4 1.09 - 3.3 10e3/ul 08/15/2019 8:48 [facility] LYMPH% - [facility] 29.4 20 - 40 % 08/15/2019 8:48 [facility] MEAN CORPUSCULAR HGB - [facility] 27.8 26.7 - 33.3 pg 08/15/2019 8:48 [facility] MEAN CORPUSCULAR HGB CONC - [facility] 31.9(L) 32.1 - 35.9 g/dL 08/15/2019 8:48 [facility] MEAN CELL VOLUME - [facility] 87.0 81 - 98 fl 08/15/2019 8:48 [facility] MONO # - [facility] 0.5 0.1 - 0.8 10e3/uL 08/15/2019 8:48 [facility] MONO% - [facility] 11.0 0 - 12 % 08/15/2019 8:48 [facility] PLATELET COUNT 297 141 - 377 10e3/ul 08/15/2019 8:48 [facility] RED BLOOD COUNT - [facility] 4.68 3.86 - 5.04 10e3/ul 08/15/2019 8:48 [facility] RED CELL DISTRI WIDTH - [facility] 12.3 <14.7 % 08/15/2019 8:48 [facility] WHITE BLOOD COUNT - [facility] 4.8 4.0 - 12.4 10e3/ul 08/15/2019 8:48 [facility] 08/15/2019 7:32 EST 08/15/2019 7:32 EST Narrative [facility] - 08/15/2019 8:48 EST Does PT Have a Latex Allergy? YES Swati Lane MD HEMATOLOGY & PF4 ORD ERABLES [facility] Organization Address City/State/ZIP Co de Phone Number [facility] documented in this encounter Visit Diagnoses Not on filedocumented in this encounter Care Teams Cash Grain Grower Relationship Specialty Start Date End Date Gerogie Stewart, BULLION WEIGHER [address] [place] [address] PCP - General 07/07/19 documented as of this encounter
--- OUTSIDE RECORDS SUMMARY | 2024-03-19 06:24 | XMS_ITS | Encounter Summary ---
Author Organization [facility] Address [address] [place] [address] Care Team Providers Care Servomechanism Assembler Name Role Phone StewartGeorgie banda Pritesh MIRANDA Primary Care Provider + Encounter Details Date Type Department Care Team (Late st Contact Info) Description 09/23/[address] [facility] Radiology Results [address] [place] [address] Gerald Dumont MD [facility] [address] [place] [address] Social History Tobacco Use Types Packs/Day Years [...] Procedure Name Priority Date/Time Associated Diagnosis Comments MR ABDOMEN W WO CONTRAST 09/23/2019 11:54 EST documented in this encounter Results * MR ABDOMEN W WO CONTRAST (09/23/2019 11:54 EST) Anatomical Region Laterality Modality Magnetic Resonan ce 09/23/2019 11:5 1 EST Narrative 09/23/2019 11:54 EST ? EXAM: MAGNETIC RESONANCE IMAGING/ABDOMEN ??EX. D/ (0943) ? CLINICAL INFORMATION: ? Q44.6 F/U LIVER CYSTS ON CT ? INDICATION: Q44.6 F/U LIVER CYSTS ON CT LUVER CYSTS ? TECHNIQUE: ??Multiplanar multisequence MRI of the abdomen is performed ? with and without intravenous contrast ? COMPARISON: Abdomen pelvis 06/13/2019 and abdominal ultrasound ? 05/19/2019 ? FINDINGS: ? Liver: There are innumerable T2 hyperintense lesions within the ? liver. The largest of these lesions are located in the right hepatic ? lobe and measure 2.1 and 1.7 cm (axial series 6 image 126 and 200), ? unchanged compared to the CT performed 06/13/2019. There is been no ? definite interval change in the size and distribution of these ? lesions compared with the prior CT examination. The majority of these ? lesions are subcentimeter in size. Given their small size and ? respiratory motion artifact, it is difficult to characterize the ? enhancement pattern. However, the majority of these lesions do not ? enhance and are consistent with cysts. On the delayed acquisition, a ? few of the smaller lesions follow blood pool signal intensity. For ? example, 1.0, 0.8 and 0.6 cm lesions are noted in the right hepatic ? lobe on coronal series 10 image 60, 43 and 55, respectively. Given ? their pre and postcontrast signal, and the patient's lack of apparent ? intrinsic hepatic disease, these likely reflect small hemangiomas. ? Biliary Tree: Unremarkable. ? Pancreas: The pancreas is normal without pancreatic ductal ? dilatation. ? Gallbladder: Normal. ? Kidneys: Unremarkable. ? Spleen: Unremarkable. A small splenule is noted. ? Adrenal Glands: Unremarkable. ? Lymph Nodes: Unremarkable. ? Visible Bowel: Unremarkable. ? Bones: Unremarkable. ? Major vascular structures: Unremarkable. ? Visible Chest: Unremarkable. ? IMPRESSION: ? Innumerable small hepatic lesions. The vast majority reflect simple ? cysts. The majority of the lesions are subcentimeter in size and it ? is not possible to accurately characterize the enhancement pattern. ? None of these small lesions demonstrate definitive enhancement on the ? PAGE 1 ? Signed Report ? (CONTINUED) ? dynamic postcontrast acquisitions, but a few small lesions follow ? blood pool signal intensity on the delayed acquisitions. Although ? nonspecific, these lesions likely reflect hemangiomas. ? REPORT SIGNED IN OTHER VENDOR SYSTEM 09/23/2019 ?Reported By: David Nguyen MD ? CC: Swati Lane MD; Georgie Stewart APRN CHANNEL MAN-BC ? Transcribed Date/Time: 09/23/2019 (2902) ? Sap Bods Developer: ? Printed Date/Time: 09/23/2019 (7854) ? PAGE 2 ? Signed Report ? Procedure Note David Nguyen MD - 09/23/2019 EXAM: MAGNETIC RESONANCE IMAGING/ABDOMEN EX. D/ (0943) CLINICAL INFORMATION: Q44.6 F/U LIVER CYSTS ON CT INDICATION: Q44.6 F/U LIVER CYSTS ON CT LUVER CYSTS TECHNIQUE: Multiplanar multisequence MRI of the abdomen isperformed with and without intravenous contrast COMPARISON: Abdomen pelvis 06/13/2019 and abdominal ultrasound 05/19/2019 FINDINGS: Liver: There are innumerable T2 hyperintense lesions within the liver. The largest of these lesions are located in the righthepatic lobe and measure 2.1 and 1.7 cm (axial series 6 image 126 and 200), unchanged compared to the CT performed 06/13/2019. There is been no definite interval change in the size and distribution of these lesions compared with the prior CT examination. The majority ofthese lesions are subcentimeter in size. Given their small size and respiratory motion artifact, it is difficult to characterize the enhancement pattern. However, the majority of these lesions do not enhance and are consistent with cysts. On the delayed acquisition,a few of the smaller lesions follow blood pool signal intensity. For example, 1.0, 0.8 and 0.6 cm lesions are noted in the right hepatic lobe on coronal series 10 image 60, 43 and 55, respectively. Given their pre and postcontrast signal, and the patient's lack ofapparent intrinsic hepatic disease, these likely reflect small hemangiomas. Biliary Tree: Unremarkable. Pancreas: The pancreas is normal without pancreatic ductal dilatation. Gallbladder: Normal. Kidneys: Unremarkable. Spleen: Unremarkable. A small splenule is noted. Adrenal Glands: Unremarkable. Lymph Nodes: Unremarkable. Visible Bowel: Unremarkable. Bones: Unremarkable. Major vascular structures: Unremarkable. Visible Chest: Unremarkable. IMPRESSION: Innumerable small hepatic lesions. The vast majority reflect simple cysts. The majority of the lesions are subcentimeter in size and it is not possible to accurately characterize the enhancement pattern. None of these small lesions demonstrate definitive enhancement onthe PAGE 1 Signed Report (CONTINUED) dynamic postcontrast acquisitions, but a few small lesions follow blood pool signal intensity on the delayed acquisitions. Although nonspecific, these lesions likely reflect hemangiomas. REPORT SIGNED IN OTHER VENDOR SYSTEM 09/23/2019 Reported By: David Nguyen MD CC: Swati Lane MD; Georgie Stewart APRN CHANNEL MAN-BC Transcribed Date/Time: 09/23/2019 (0803) Sap Bods Developer: Printed Date/Time: 09/23/2019 (3769) PAGE 2 Signed Report Gerald Dumont MD IMG MRI ORDERABLES documented in this encounter Visit Diagnoses Not on filedocumented in this encounter Care Teams Servomechanism Assembler Relationship Specialty Start Date End Date Georgie Stewart APRN [address] [place] [address] PCP - General 07/07/19 documented as of this encounter
--- OUTSIDE RECORDS SUMMARY | 2024-03-19 06:24 | XMS_ITS | Encounter Summary ---
Author Organization [facility] Address [address] [place] [address] Care Team Providers Care Division Service Manager Name Role Phone StewartGeorgie banda Pritesh MIRANDA Primary Care Provider + Reason for Visit * Reason Comments Follow-up Encounter Details Date Type Department Care Team (Late st Contact Info) Description 10/07/2019 10:20 EST Office Visit [facility] [address] [place] [address] MD [address] [facility] [place] [address] Post-operative state (Primary Dx) Social [...] as of this encounter Progress Notes * Rani Reyes RN - 10/07/2019 1020 EST SBIRT Screening 2Chaperone for exam: Pt declined * Swati Lane MD - 10/07/2019 1020 EST HPI: María Elena Mantilla is a 34 y.o. here today for follow up s/p TLH/left salpingectomy/RSO on08/18/19. Overall doing well since surgery. Appetite, bowel, and bladder function normal. Pain and energy improving little by little. Still some pain in right side which she now attributes to liver but she does state it has improved some since surgery. ROS: Review of Systems Constitutional: Negative. Gastrointestinal: Negative. Genitourinary: Negative. Musculoskeletal: Positive for back pain. MARBLE SETTER HELPER History: Patient's last menstrual period was 06/05/2019 [...] Allergies Allergen Reactions ??? Codeine Anaphylaxis ??? Nfvliyv-Bug-Vk-Acetaminophen Anaphylaxis ??? Sulfa (Sulfonamide Antibiotics) Anaphylaxis ??? Aspirin Other reaction(s): unsure of reaction ??? [place] And Derivatives Other reaction(s): rash and hives [...] mouth [address] MD documented in this encounter Plan of Treatment Not on file documented as of this encounter Visit Diagnoses Diagnosis Post-operative state- Primary Other postprocedural status documented in this encounter Discontinued Medications Medication Sig Discontinue Reason Start Date End Da te omeprazole (PRILOSEC) 20 mg capsuleIndications:franck roesophageal reflux disease,heartburn Take 20 mg by mouth every morning. Therapy completed 10/07/2019 nystatin (MYCOSTATIN) cream Apply thin layer to affected area twice day. Therapy completed 08/22/2019 10/07/2019 documented as of this encounter Historical Medications * This list may reflect changes made after this encounter. Medication Sig Dispensed Refills Start Date End Date ibuprofen (MOTRIN) 600 mg tablet Take 600 mg by mouth 3 times daily. added in this encounter Care Teams Division Service Manager Relationship Specialty Start Date End Date Georgie Stewart, R[address] [place] [address] PCP - General 07/07/19 documented as of this encounter
--- OUTSIDE RECORDS SUMMARY | 2024-03-19 06:24 | XMS_ITS | Encounter Summary ---
Author Organization [facility] Address [address] [place] [address] Care Team Providers Care Chip Mucker Name Role Phone StewartGeorgie banda Pritesh MIRANDA Primary Care Provider + Reason for Referral * Laboratory Services (Routine) - New Request Specialty Diagnoses / Procedures Referred By Contac t Referred To Contact Diagnoses DUB (dysfunctional uterine bleeding) Procedures MISCELLANEOUS TEST, NON MARCOS Swati Lane MD [address] [facility], [address] [place] [address] Referral ID Status Reason Start Date Expiration Date V isits Requested Visits Authorized [id number] New Request 2019 1 1 * Laboratory Services (Routine) - New Request Specialty Diagnoses / Procedures Referred By Contac t Referred To Contact Diagnoses DUB (dysfunctional uterine bleeding) Procedures HEMOGLOBIN A1C Swati Lane MD [address] [facility], [address] [place] [address] Referral ID Status Reason Start Date Expiration Date V isits Requested Visits Authorized [id number] New Request 2019 1 1 * Laboratory Services (Routine) - New Request Specialty Diagnoses / Procedures Referred By Contac t Referred To Contact Diagnoses DUB (dysfunctional uterine bleeding) Procedures PRE-OP BLOOD BANK DRAW Rani Reyes RN Referral ID Status Reason Start Date Expiration Date V isits Requested Visits Authorized [id number] New Request 2019 1 1 * Laboratory Services (Routine) - New Request Specialty Diagnoses / Procedures Referred By Contac t Referred To Contact Diagnoses DUB (dysfunctional uterine bleeding) Procedures CREATININE Swati Lane MD [address] [place] [address], [facility] [address] [address] Referral ID Status Reason Start Date Expiration Date V isits Requested Visits Authorized [id number] New Request 2019 1 1 * Laboratory Services (Routine) - New Request Specialty Diagnoses / Procedures Referred By Contac t Referred To Contact Diagnoses DUB (dysfunctional uterine bleeding) Procedures GLUCOSE, SERUM Swati Lane MD [address] [place] [address] [address] Referral ID Status Reason Start Date Expiration Date V isits Requested Visits Authorized [id number] New Request 2019 1 1 * Laboratory Services (Routine) - New Request Specialty Diagnoses / Procedures Referred By Contac t Referred To Contact Diagnoses DUB (dysfunctional uterine bleeding) Procedures COMPLETE BLOOD COUNT AND DIFFERENTIAL Swati Lane MD [address] [place] [phone] Referral ID Status Reason Start Date Expiration Date V isits Requested Visits Authorized [id number] New Request 2019 1 1 Reason for Visit * Reason Onset Date Comments Orders (Non Pre-visit) 2019 preop lab orders Encounter Details Date Type Department Care Team (Late st Contact Info) Description [address] [address] Rani Reyes RN Orders (Non Pre-visit) (preop lab orders) Social History Tobacco Use Types Packs/Day Years [...] encounter Miscellaneous Notes * Telephone Encounter - Rani Reyes RN - 2019 0924 EST PREOP LAB ORDERS documented in this encounter Plan of Treatment Scheduled Orders Name Type Priority Associated Diagnoses Orde r Schedule COMPLETE BLOOD COUNT AND DIFFERENTIAL Lab Routine DUB (dysfunctional uterine bleeding) Ordered: 2019 PRE-OP BLOOD BANK DRAW Blood Bank Routine DUB (dysfunctional uterine bleeding) Ordered: 2019 MISCELLANEOUS TEST, NON [place] Lab Routine DUB (dysfunctional uterine bleeding) Ordered: 2019 documented as of this encounter Procedures Procedure Name Priority Date/Time Associated Diagnosis Comments HEMOGLOBIN A1C Routine 08/15/2019 7:31 EST DUB (dysfunctional uterine bleeding) GLUCOSE, SERUM Routine 08/15/2019 7:31 EST DUB (dysfunctional uterine bleeding) CREATININE Routine 08/15/2019 7:31 EST DUB (dysfunctional uterine bleeding) documented in this encounter Results * HEMOGLOBIN A1C (08/15/2019 7:31 EST) Hemoglobin A1c 5.2 4.0 - 6.0 % 08/15/2019 13:00 [facility] Comment: > or =18 years: ??Increased risk for diabetes (prediabetes): 5.7-6.4% Diabetes: > or =6.5% Therapeutic goals for glycemic control (ADA) Adults: - Goal of therapy: <7.0% HbA1c - Action suggested: >8.0% HbA1c Pediatric patients: - Toddlers and preschoolers: <8.5% (but >7.5%) - School age (6-12 years): <8% - Adolescents and young adults (13-19 years): <7.5% Est Avg Glucose 103 mg/dL 13:00 [facility] Blood VENOUS BLOOD / Unknown 08/15/2019 7:31 EST 08/15/2019 7:32 EST Narrative [facility] - 08/15/2019 13:00 EST Does PT Have a Latex Allergy? YES Swati Lane MD CHEMISTRY & BLOOD GA S ORDERABLES [facility] * CREATININE (08/15/2019 7:31 EST) CREATININE 0.80 0.52 - 1.04 mg/dL 08/15/2019 9:23 EST [facility] eGFR >60 08/15/2019 9:23 [facility] Comment: Chronic renal impairment is defined as GFR <60 Multiply result by 1.210 for patients. eGFR calculated using the IDMS-traceable MDRD Study Equation. ??(effective 07/06/2014) Blood VENOUS BLOOD / Unknown 08/15/2019 7:31 EST 08/15/2019 7:31 EST Narrative [facility] - 08/15/2019 9:23 EST Does PT Have a Latex Allergy? YES Swati Lane MD CHEMISTRY & BLOOD GA S ORDERABLES [facility] * GLUCOSE, SERUM (08/15/2019 7:31 EST) GLUCOSE - [facility] 70 - 100 mg/dL 08/15/2019 9:23 EST [facility] Blood VENOUS BLOOD / Unknown 08/15/2019 7:31 EST 08/15/2019 7:31 EST Narrative [facility] - 08/15/2019 9:23 EST Does PT Have a Latex Allergy? YES Swati Lane MD CHEMISTRY & BLOOD GA S ORDERABLES [facility] documented in this encounter Visit Diagnoses Diagnosis DUB (dysfunctional uterine bleeding)- Primary Other disorder of menstruation and other abnormal bleeding from female genital tract documented in this encounter Care Teams Chip Mucker Relationship Specialty Start Date End Date Georgie Stewart, COURT ASSISTANT [address] [place] [address] PCP - General 07/07/19 documented as of this encounter
--- OUTSIDE RECORDS SUMMARY | 2024-03-19 06:24 | XMS_ITS | Encounter Summary ---
Author Organization [facility] Address [address] [place] [address] Care Team Providers Care Lawn Mower Name Role Phone Georgie Stewart Pritesh MIRANDA Primary Care Provider + Reason for Visit * Reason Onset Date Comments Rash 08/22/2019 had lapro hyst. on Saturday 08/18, Encounter Details Date Type Department Care Team (Late st Contact Info) Description 08/22/2019 Telephone [facility] [address] [place] [address] MD [address] [facility], [address] [place] [address] Rash (had lapro hyst. on Saturday 08/18, ) Social History Tobacco Use Types Packs/Day [...] Dispensed Refills Start Date End Da te nystatin (MYCOSTATIN) cream Apply thin layer to affected area twice day. 1 Tube 08/22/2019 10/07/2019 documented in this encounter Miscellaneous Notes * Telephone Encounter - Swati Lane MD - [...] she can be evaluated at urgent care. * Telephone Encounter - Virginia Moore RN - [...] is worse. Pt denies fever and feels painis under control with ibuprofen and dilaudid. Pt has been on ibuprofen in the past without problems. Pt is on an allergy medication that she has been on for about a year. Pt is taking dilaudid for the first time post surgery. Pt advised to md for review. * Telephone Encounter - Kelly Weaver - 08/22/2019 1634 EST had lapro hyst. on Saturday 08/18, [place] now itchy and red , with rash, warm and spreading did try benydryl documented in this encounter Plan of Treatment Not on file documented as of this encounter Visit Diagnoses Not on filedocumented in this encounter Care Teams Lawn Mower Relationship Specialty Start Date End Date Georgie Stewart, [address] [place] [address] PCP - General 07/07/19 documented as of this encounter
--- OUTSIDE RECORDS SUMMARY | 2024-03-19 06:24 | XMS_ITS | Encounter Summary ---
Author Organization [facility] Address [address] [place] [address] Care Team Providers Care Forester Aide Name Role Phone StewartGeorgie banda Pritesh MIRANDA Primary Care Provider + Reason for Visit * Reason Onset Date Comments Rash 08/22/2019 Pt had a procedu re Sunday, this morning she woke up with a rash, like three on the left side of her belly. Encounter Details Date Type Department Care Team (Late st Contact Info) Description 08/22/2019 Telephone [facility] [address] MD [address] [facility], [address] [place] [address] Rash (Pt had a procedure Sunday, this morning she woke up with a rash, like three on the left side of her belly. ) Social History Tobacco Use Types Packs/Day [...] encounter Miscellaneous Notes * Telephone Encounter - Virginia Moore RN - 08/22/2019 0951 EST . * Telephone Encounter - Virginia Moore RN [...] Dr. Lane. To Dr Lane for review * Telephone Encounter - Anushka Reis - 08/22/2019 0844 EST Pt had a procedure Sunday, this morning she woke up with a rash, like three on the left side of herbelly. documented in this encounter Plan of Treatment Not on file documented as of this encounter Visit Diagnoses Not on filedocumented in this encounter Care Teams Forester Aide Relationship Specialty Start Date End Date Georgie Stewart APRN [address] [place] [address] PCP - General 07/07/19 documented as of this encounter
--- OUTSIDE RECORDS SUMMARY | 2024-03-19 06:25 | XMS_ITS | Encounter Summary ---
Author Organization [facility] Address [address] [place] [address] Care Team Providers Care Shrimp Trawler Captain Name Role Phone Aric Hurley MD Primary Care Provider Un available Encounter Details Date Type Department Care Team (Latest Contact Info) Description 02/01/2009 17:00 EDT - 02/01/2009 17:01 EDT Hospital Encounter [facility] [address] [place] [address] Abner Anand MD Discharge Disposition: Home or Self Care Social History Tobacco Use Types Packs/Day Years Used Date Smoking Tobacco: Never Assessed Sex and Gender Information Value Date Recorded [...] on filedocumented in this encounter Care Teams Shrimp Trawler Captain Relationship Specialty Start Date End Date Aric Hurley MD PCP - General 01/13/09 04/01/09 documented as of this encounter
--- OUTSIDE RECORDS SUMMARY | 2024-03-19 06:25 | XMS_ITS | Encounter Summary ---
Author Organization [facility] Address [address] [place] [address] Care Team Providers Care Manager Spa Name Role Phone Jose Hillman MD Primary Care Provider Unav ailable Encounter Details Date Type Department Care Team (Latest Contact Info) Description 04/06/2009 12:54 EDT - 04/06/2009 23:59 EDT Hospital Encounter [facility] [address] [place] [address] Theo Mchugh MD Discharge Disposition: Home or Self Care Social History Tobacco Use Types Packs/Day Years Used Date Smoking Tobacco: Never Assessed Sex and Gender Information Value Date Recorded Sex Assigned at Not on file Gender Identity Female 07/07/2019 11:20 EST Sexual Orientation Not on file documented as of this encounter Discharge Disposition Disposition Code Departure Means Destination Home or Self Long-Term documented in this encounter Plan of Treatment Not on file documented as of this encounter Procedures Procedure Name Priority Date/Time Associated Diagnosis Comments CYTOPATHOLOGY Routine 08/09/2009 0:00 EST documented in this encounter Results * CYTOPATHOLOGY (08/09/2009 0:00 EST) Pathology Report: CYTOPATHOLOGY REPORT ? Reports generated via electronic interface contain original data; ? however they are lacking the format of the original report. ? Caution should be taken when reading/interpreti ng unformatted reports. ? Name: ? MARÍA ELENA FORD ? Accession #: ? [id number] ? : ? 1985 (Age: 24) ??F ?Collect Date: ? 08/09/2009 ? Location: ? [facility] ? Receive Date: ? 08/10/2009 ? Provider: ?ABNER ROYAL MD ? Copy to: ? Specimen/Source: ?Pap Test, Cervix/Endocervix, ThinPrep Imaging System ? with manual evaluation ? Last Menstrual Period: ? Menstrual/Pregnanc y Status: ? Post ? Hormonal/Contracep tive Status: ? Tubal ligation: Bilateral 10/09 ? Other: ? HPVA - HPV testing requested if ASC-US on the current ThinPrep Pap test. ? SPECIMEN ADEQUACY ? Satisfactory for Evaluation ? - transformation zone component present ? GENERAL CATEGORIZATION ? Negative for Intraepithelial Lesion or Malignancy ? Document reviewed and electronically signed by: ? Lynan Bryn, CT(ASCP) ? Report Date: ??08/11/2009 16:26 ? End of Report ? [facility] 08/09/2009 08/10/2009 Abner Royal MD PATHOLOGY ORDERABLES [facility] [address] [place] [address] documented in this encounter Visit Diagnoses Not on filedocumented in this encounter Care Teams Manager Spa Relationship Specialty Start Date End Date Jose Hillman MD PCP - General 04/02/09 07/06/19 documented as of this encounter
--- OUTSIDE RECORDS SUMMARY | 2024-03-19 06:25 | XMS_ITS | Encounter Summary ---
Author Organization [facility] Address [address] [place] [address] Care Team Providers Care Dermatology Teacher Name Role Phone Jose Hillman MD Primary Care Provider Unav Aric Chow MD Primary Care Provider Un available Encounter Details Date Type Department Care Team (Late st Contact Info) Description 02/22/2006 Results Only [facility] - Maple conversion [address] [place] [address] Abner Anand MD Social History Tobacco Use Types Packs/Day Years Used Date Smoking Tobacco: Never Assessed Sex and Gender Information Value Date Recorded Sex Assigned at Not on file Gender Identity Female 07/07/2019 11:20 EST Sexual Orientation Not on file documented as of this encounter Plan of Treatment Not on file documented as of this encounter Procedures Procedure Name Priority Date/Time Associated Diagnosis Comments CYTOPATHOLOGY Routine 02/22/2006 0:00 EDT documented in this encounter Results * CYTOPATHOLOGY (02/22/2006 0:00 EDT) Pathology Report: CYTOPATHOLOGY REPORT Reports generated via electronic interface contain original data; however they are lacking the format of the original report. Caution should be taken when reading/interpreti ng unformatted reports. Name: ? MARÍA ELENA FORD ? Accession #: ? [id number] : ? 1985 (Age: 20) ??F ?Collect Date: ? 02/22/2006 Location: ? [facility] ? Receive Date: ? 02/23/2006 Provider: ?ABNER ANAND MD Copy to: ? Specimen/Source: ?ThinPrep Pap Test, Cervix/Endocervix, processed on [employer] ThinPrep Imaging System, with manual evaluation Last Menstrual Period: ? 12/14/05 Menstrual/Pregnanc y Status: ? Other: ? HPVA - HPV testing requested if ASC-US on the current ThinPrep Pap test. ? SPECIMEN ADEQUACY ? Satisfactory for Evaluation - transformation zone component present - scant squamous epithelial component secondary to excessive blood GENERAL CATEGORIZATION ? Negative for Intraepithelial Lesion or Malignancy ? Document reviewed and electronically signed by: ? KATHERINE Salazar(ASCP) ? Report Date: ??02/27/2006 10:06 End of Report MARÍ[facility]LENA [facility] 02/22/2006 02/23/2006 Abner Anand MD PATHOLOGY ORDERABLES Performing Organization Address City/State/[facility] Co de Phone Number [facility] [address] [place] [address] documented in this encounter Visit Diagnoses Not on filedocumented in this encounter Care Teams Dermatology Teacher Relationship Specialty Start Date End Date Jose Hillman MD PCP - General 04/02/09 07/06/19 Aric Hurley MD PCP - General 01/13/09 04/01/09 documented as of this encounter
--- OUTSIDE RECORDS SUMMARY | 2024-03-19 06:25 | XMS_ITS | Encounter Summary ---
Author Organization [facility] Address [address] [place] [address] Care Team Providers Care Lining Marker Name Role Phone Jose Hillman MD Primary Care Provider Unav ailable Encounter Details Date Type Department Care Team (Late st Contact Info) Description 03/19/2019 Historical Results Only [facility] - Main [place] [address] [place] [address] MD [address] [place] [address], [address] [place] [address] Social History Tobacco Use Types Packs/Day Years Used Date Smoking Tobacco: Never Assessed Sex and Gender Information Value Date Recorded Sex Assigned at Not on file Gender Identity Female 07/07/2019 11:20 EST Sexual Orientation Not on file documented as of this encounter Plan of Treatment Not on file documented as of this encounter Procedures Procedure Name Priority Date/Time Associated Diagnosis Comments SURGICAL PATHOLOGY Routine 03/19/2019 documented in this encounter Results * SURGICAL PATHOLOGY (03/19/2019) 03/19/2019 03/19/2019 11: 03 EDT Narrative [facility] - 03/20/2019 17:14 EDT ----- ------- Name: LILIANA,MARÍA ELENA ? : [birth year] ?Age/Sex: 33/F ?Unit#: [id number] ? Loc: SDS ? Status: DEP SDC ?? Reg Date: 03/19/19 ? Pt.Phone Number: ? ----- ------- Specimen: [id number] ? STATUS: SOUT ?Spec Date:03/19/19 ? Physician Copies: ?Swati Lane MD ?? Tissues: A ?? Endometrium, polyp ? Georgie Stewart ? B ?? Endometrium, curettings ? C ?? Endocervix, polyp ? CPT: 71216 ?? Units: ??3 ?FINAL DIAGNOSIS ? A. ENDOMETRIUM, POLYP, BIOPSY; ? - Endometrial polyp fragments. ? - Background proliferative endometrium. ? B. ENDOMETRIUM, CURETTAGE; ? - Endometrial polyp fragments. ? - Background proliferative endometrium. ? C. ENDOCERVIX, POLYP, BIOPSY; ? - Endometrial polyp fragments. ??See comment. ----- ------- ?COMMENT ? All of the specimens, including part C, consist of proliferative endometrium with multiple endometrial polyp fragments. ??Negative for atypia or malignancy. No endocervical polyp tissue identified. ? GROSS DESCRIPTION ? Received are three formalin container all labeled with María Elena Ford, ? [birth year]. ? A. ??The first container is additionally labeled 1.endometrial polyp and ? contains multiple marin and marin-red tissue fragments ranging in size from ? approximately 2 mm to the largest measuring 1.5 x 0.7 x 0.6 cm in greatest ? dimension, appearing to represent a dominant polypoid tissue fragment. ??The ? larger polypoid fragment is bisected and submitted entirely in 1 cassette along ? with the smaller fragment. ? B. A second conatiner is additionally labeled 2. endometrial curettings and ? contains multiple marin-red fragments of tissue that measure 3.0 x 2.0 x 0.7 cm ? in greatest aggregate dimension, entirely submitted in 2 cassettes. ? ----- ------- Patient: MARÍA ELENA FORD ? #[id number] ? (Continued) ----- ------- Specimen: [id number] ? Received: 03/19/19 ?(Continued) ? GROSS DESCRIPTION ?(Continued) ? C. ??A third container is additionally labeled 3. endocervical polyp and ? contains two tissue fragments, the larger measuring approximately 1.1 x 0.6 x ? 0.3 cm and the smaller measuring 0.6 x 0.4 x 0.2 cm, both marin-red in color and ? submitted entirely in cassette C. ??GEORGINA ?? PREOP DX/CLINICAL HISTORY ?Abnormal uterine bleeding Signed ____(signature on file)____ Yee Hines M.D. 03/20/19 By the signature above, the attending physician certifies that he/she has personally conducted a gross and/or microscopic examination of the described specimens and rendered or confirmed the above diagnosis. Test Performed by [facility], [address] [place] [address] Registered Medical Transcriptionist: Yee Hines MD PHD ----- ------- Swati Lane MD PATHOLOGY ORDERABLES [facility] documented in this encounter Visit Diagnoses Not on filedocumented in this encounter Care Teams Lining Marker Relationship Specialty Start Date End Date Jose Hillman MD PCP - General 04/02/09 07/06/19 documented as of this encounter
--- OUTSIDE RECORDS SUMMARY | 2024-03-19 06:25 | XMS_ITS | Encounter Summary ---
Author Organization [facility] Address [address] [place] [address] Care Team Providers Care Casing Splitter Name Role Phone Jose Hillman MD Primary Care Provider Unav ailable Encounter Details Date Type Department Care Team (Latest Contact Info) Description 01/03/2019 11:18 EDT - 01/03/2019 23:[address] [facility] [address] [place] [address] Unknown, Provider, Discharge Disposition: Home or Self Care Social History Tobacco Use Types Packs/Day Years Used Date Smoking Tobacco: Never Assessed Sex and Gender Information Value Date Recorded Sex Assigned at Not on file Gender Identity Female 07/07/2019 11:20 EST Sexual Orientation Not on file documented as of this encounter Discharge Disposition Disposition Code Departure Means Destination Home or Self Retirement documented in this encounter Plan of Treatment Not on file documented as of this encounter Visit Diagnoses Not on filedocumented in this encounter Care Teams Casing Splitter Relationship Specialty Start Date End Date Jose Hillman MD PCP - General 04/02/09 07/06/19 documented as of this encounter
--- OUTSIDE RECORDS SUMMARY | 2024-03-19 06:25 | XMS_ITS | Encounter Summary ---
Author Organization [facility] Address [address] [place] [address] Care Team Providers Care Machine Set Up Technician Name Role Phone Jose Hillman MD Primary Care Provider Unav Aric Chow MD Primary Care Provider Un available Encounter Details Date Type Department Care Team (Late st Contact Info) Description 10/11/2007 Results Only [facility] - Maple conversion [address] [place] [address] Abner Anand MD Social History Tobacco Use [...] Priority Date/Time Associated Diagnosis Comments CYTOPATHOLOGY Routine 10/11/2007 0:00 EST documented in this encounter Results * CYTOPATHOLOGY (10/11/2007 0:00 EST) Pathology Report: CYTOPATHOLOGY REPORT Reports generated via electronic interface contain original data; however they are lacking the format of the original report. Caution should be taken when reading/interpreti ng unformatted reports. Name: ? MARÍA ELENA FORD ? Accession #: ? [id number] : ? 1985 (Age: 22) ??F ?Collect Date: ? 10/11/2007 Location: ? [facility] ? Receive Date: ? 10/14/2007 Provider: ?ABNER ANAND MD Copy to: ? Specimen/Source: ?ThinPrep Pap Test, Cervix/Endocervix, processed on [employer] ThinPrep Imaging System, with manual evaluation Last Menstrual Period: ? N/A Menstrual/Pregnanc y Status: ? Post Other: ? HPVA - HPV testing requested if ASC-US on the current ThinPrep Pap test. ? SPECIMEN ADEQUACY ? Satisfactory for Evaluation - transformation zone component present GENERAL CATEGORIZATION ? Negative for Intraepithelial Lesion or Malignancy ? Document reviewed and electronically signed by: ? ANICETO Hsieh(ASCP) ? Report Date: ??10/17/2007 10:34 End of Report MARÍA ELENA LAU 10/11/2007 10/14/2007 Abner Anand MD PATHOLOGY ORDERABLES [facility] [address] [place] [address] documented in this encounter Visit Diagnoses Not on filedocumented in this encounter Care Teams Machine Set Up Technician Relationship Specialty Start Date End Date Jose Hillman MD PCP - General 04/02/09 07/06/19 Aric Hurley MD PCP - General 01/13/09 04/01/09 documented as of this encounter
--- OUTSIDE RECORDS SUMMARY | 2024-03-19 06:25 | XMS_ITS | Encounter Summary ---
Author Organization [facility] Address [address] [place] [address] Care Team Providers Care Collar Folder Operator Name Role Phone Jose Hillman MD Primary Care Provider Georgie Brennan APRN Primary Care Provider + Encounter Details Date Type Department Care Team (Late st Contact Info) Description 07/01/2019 Results Only [facility] - Main [place] [address] [place] [address] MD [address] [place] [address], [address] [place] [address] Social History Tobacco Use Types [...] Date/Time Associated Diagnosis Comments SURGICAL PATHOLOGY Routine 07/01/2019 documented in this encounter Results * SURGICAL PATHOLOGY (07/01/2019) 07/01/2019 07/01/2019 9:2 1 EDT Ted [facility] - 07/04/2019 16:42 EDT ----- ------- Name: MARÍA ELENA FORD ? : [birth year] ?Age/Sex: 33/F ?Unit#: [id number] ? Loc: SDS ? Status: DEP SDC ?? Reg Date: 07/01/19 ? Pt.Phone Number: ? ----- ------- Specimen: [id number] ? STATUS: SOUT ?Spec Date:07/01/19 ? Physician Copies: ?Swati Lane MD ?? Tissues: A ?? Endometrial curettings ? Georgie Stewart CPT: 12284 ?? Units: ??1 ? 89970 ? 1 ?FINAL DIAGNOSIS ? ENDOMETRIUM, CURETTAGE; ? - Inactive endometrium with changes that favor chronic endometritis, present ? in a background of exogenous hormone effect, glandular breakdown, and stromal ? breakdown. ??SEE COMMENT. ? - Negative for hyperplasia, atypia, and malignancy. ----- ------- ?COMMENT ? The tissue sections show numerous fragments of inactive endometrium with exogenous hormone related changes, glandular and stromal breakdown, and areas of mixed acute and chronic inflammation including numerous lymphocytes, scattered neutrophils, scattered eosinophils, and rare plasma cells. ??The presence of eosinophils and plasma cells favor an underlying chronic endometritis over simple breakdown related changes in the setting of exogenous hormones. Clinical correlation is suggested. ?? Immunohistochemical staining was performed on this case to further evaluate for the presence of plasma cells (staining performed on tissue block 1). ??Positive controls stained appropriately. ?? Antibody Clone ? Result CD138 (MI15, Leica) ?Highlights rare scattered plasma ?cells in endometrial stroma ?? NOTE: ??One or more of the reagents used in immunohistochemical testing in this case may not have been cleared or approved by the U.S. Food and Drug Administration (FDA). ??The FDA has determined that such clearance or approval is not necessary. ??These tests are used for clinical purposes. ??They should not be regarded as investigational or for research. ??These reagents' performance characteristics have been determined by [facility] and/or by the referring laboratory. ??The positive and negative controls worked appropriately. If immunoperoxidase staining has been performed on alcohol fixed cytology specimens, which has not been fully validated, the assays should be interpreted with caution and correlated with clinical data. ??This laboratory is certified under the Clinical Laboratory Improvement Amendments of 1987 ----- ------- Patient: MARÍA ELENA FORD ? #[id number] ? (Continued) ----- ------- Specimen: [id number] ? Received: 07/01/19 ?(Continued) ?COMMENT ? (Continued) (CLIA-88) as qualified to perform high complexity clinical laboratory testing. ? GROSS DESCRIPTION ? Received in formalin in a container labeled María Elena Ford and endometrial ? curettings are two bloody Telfa pads with multiple fragments of ? hemorrhagic-appearing mucosal tissue aggregating to 2.8 x 1.4 x 0.6 cm. ??The ? specimen is entirely submitted in cassettes A1 and A2. ??MS ?? PREOP DX/CLINICAL HISTORY ?DYSFUNCTIONAL UTERINE BLEEDING Signed ____(signature on file)____ Jaun Mosqueda 07/04/19 ? By the signature above, the attending physician certifies that he/she has personally conducted a gross and/or microscopic examination of the described specimens and rendered or confirmed the above diagnosis. Test Performed by [facility], [address] [place] [address] Applied Statistician: Yee Hines MD PHD ----- ------- Swati Lane MD PATHOLOGY ORDERABLES [facility] documented in this encounter Visit Diagnoses Not on filedocumented in this encounter Care Teams Collar Folder Operator Relationship Specialty Start Date End Date Jose Hillman MD PCP - General 04/02/09 07/06/19 Georgie Stewart, DIRECTOR [employer]OPMENT [address] [place] [address] PCP - General 07/07/19 documented as of this encounter
--- OUTSIDE RECORDS SUMMARY | 2024-03-19 06:25 | XMS_ITS | Encounter Summary ---
Author Organization [facility] Address [address] [place] [address] Care Team Providers Care Assembler Cards And Announcements Name Role Phone Jose Hillman MD Primary Care Provider Unav ailable Encounter Details Date Type Department Care Team (Late st Contact Info) Description 05/19/2019 Historical Results Only [facility] Radiology Results [address] [place] [address] MD [address] [place] [address], [address] [place] [address] Social History Tobacco Use Types [...] Name Priority Date/Time Associated Diagnosis Comments US ABDOMEN COMPLETE 05/19/2019 8:28 EDT documented in this encounter Results * US ABDOMEN COMPLETE (05/19/2019 8:28 EDT) Anatomical Region Laterality Modality Abdomen, Body Ultrasound 05/19/2019 8:28 EDT Narrative 05/19/2019 8:31 EDT ? EXAM: ULTRASOUND/ABDOMINAL MULTIPLE ORGAN EX. D/ (0705) ? CLINICAL INFORMATION: ? R10.9 ABDOMINAL PAIN ? ABDOMINAL MULTIPLE ORGAN ? Signs and Symptoms/Comments: ??R10.9 ABDOMINAL PAIN ? Comparison: None ? Technique: Complete abdominal ultrasound was performed with color ? Doppler imaging. ? FINDINGS: ? Pancreas: The visible portion of the pancreas is grossly ? unremarkable. ? Liver: The liver is normal in size (measuring 17.1 cm). Moderate ? diffuse hepatosteatosis is present. Two circumscribed homogeneously ? echogenic lesions in the right hepatic lobe measure 1.6 cm and 1.2 cm ? respectively, statistically likely to reflect hemangiomas in the ? absence of risk fractures for HCC or metastatic disease. There is a ? 2.9 cm cyst in the dome of the liver with a possible thin internal ? septation. A lobulated 2.6 cm right hepatic cyst is also present ? without significant complexity. A simple 1.3 cm right hepatic cyst is ? also present. The liver contour is smooth. No perihepatic ascites is ? visible. ? Bile Ducts: No biliary dilatation is identified. The common bile duct ? measures 5.6 mm. ? Gallbladder: The gallbladder contains no stones. The gallbladder wall ? is normal in thickness (2.1 mm). No pericholecystic fluid is visible. ? No sonographic Pimentel's sign was elicited. ? Right Kidney: The right kidney is normal in size, measuring 11.6 cm. ? No renal mass is identified. No shadowing calculi are visible. No ? hydronephrosis is present. ? Left Kidney: The left kidney is normal in size, measuring 11.2 cm. No ? renal mass is identified. No shadowing calculi are visible. No ? hydronephrosis is present. ? Spleen: The spleen is homogeneous in echotexture and normal in size, ? measuring 10.5 cm x 4.8 cm x 4.5 cm (volume 119.1 cc). ? Vessels: The visible portions of the abdominal aorta and IVC are ? unremarkable. ? IMPRESSION: ? 1. ??Small circumscribed echogenic liver lesions, statistically likely ? to reflect hemangiomas in the absence of risk factors for HCC or ? metastatic disease. If there is clinical concern, liver protocol MR ? PAGE 1 ? Signed Report ? (CONTINUED) ? may be performed for further characterization. Otherwise, follow-up ? ultrasound is recommended in 3-6 months to confirm stability. ? 2. ??Multiple small hepatic cysts, without significant complexity. ? 3. ??Moderate hepatosteatosis. ? 4. ??Otherwise unremarkable abdominal ultrasound. ? This report has been flagged for a noncritical result requiring ? follow-up on the [facility] PACS findings application, to be tracked by ? the [facility] tracking system. ? REPORT SIGNED IN OTHER VENDOR SYSTEM 05/19/2019 ?Reported By: Isaak Gautam MD ? CC: ? Transcribed Date/Time: 05/19/2019 (0831) ? Superintendent: ? Printed Date/Time: 05/21/2019 (1728) ? PAGE 2 ? Signed Report ? Procedure Note Isaak Gautam MD, MD - 07/08/2019 EXAM: ULTRASOUND/ABDOMINAL MULTIPLE ORGAN EX. D/ (0705) CLINICAL INFORMATION: R10.9 ABDOMINAL PAIN ABDOMINAL MULTIPLE ORGAN Signs and Symptoms/Comments: R10.9 ABDOMINAL PAIN Comparison: None Technique: Complete abdominal ultrasound was performed with color Doppler imaging. FINDINGS: Pancreas: The visible portion of the pancreas is grossly unremarkable. Liver: The liver is normal in size (measuring 17.1 cm). Moderate diffuse hepatosteatosis is present. Two circumscribed homogeneously echogenic lesions in the right hepatic lobe measure 1.6 cm and 1.2cm respectively, statistically likely to reflect hemangiomas in the absence of risk fractures for HCC or metastatic disease. There is a 2.9 cm cyst in the dome of the liver with a possible thin internal septation. A lobulated 2.6 cm right hepatic cyst is also present without significant complexity. A simple 1.3 cm right hepatic cystis also present. The liver contour is smooth. No perihepatic ascitesis visible. Bile Ducts: No biliary dilatation is identified. The common bileduct measures 5.6 mm. Gallbladder: The gallbladder contains no stones. The gallbladderwall is normal in thickness (2.1 mm). No pericholecystic fluid isvisible. No sonographic Pimentel's sign was elicited. Right Kidney: The right kidney is normal in size, measuring 11.6cm. No renal mass is identified. No shadowing calculi are visible. No hydronephrosis is present. Left Kidney: The left kidney is normal in size, measuring 11.2 cm.No renal mass is identified. No shadowing calculi are visible. No hydronephrosis is present. Spleen: The spleen is homogeneous in echotexture and normal insize, measuring 10.5 cm x 4.8 cm x 4.5 cm (volume 119.1 cc). Vessels: The visible portions of the abdominal aorta and IVC are unremarkable. IMPRESSION: 1. Small circumscribed echogenic liver lesions, statisticallylikely to reflect hemangiomas in the absence of risk factors for HCC or metastatic disease. If there is clinical concern, liver protocol MR PAGE 1 Signed Report (CONTINUED) may be performed for further characterization. Otherwise, follow-up ultrasound is recommended in 3-6 months to confirm stability. 2. Multiple small hepatic cysts, without significant complexity. 3. Moderate hepatosteatosis. 4. Otherwise unremarkable abdominal ultrasound. This report has been flagged for a noncritical result requiring follow-up on the [facility] PACS findings application, to be tracked by the [facility] tracking system. REPORT SIGNED IN OTHER VENDOR SYSTEM 05/19/2019 Reported By: Isaak Gautam MD CC: Transcribed Date/Time: 05/19/2019 (0831) Superintendent: Printed Date/Time: 05/21/2019 (1721) [address] MD IMG US ORDERABLES documented in this encounter Visit Diagnoses Not on filedocumented in this encounter Care Teams Assembler Cards And Announcements Relationship Specialty Start Date End Date Jose Hillman MD PCP - General 04/02/09 07/06/19 documented as of this encounter
--- OUTSIDE RECORDS SUMMARY | 2024-03-19 06:25 | XMS_ITS | Encounter Summary ---
Author Organization [facility] Address [address] [place] [address] Care Team Providers Care Tassel Snipper Name Role Phone Jose Hillman MD Primary Care Provider Unav Aric Chow MD Primary Care Provider Un available Encounter Details Date Type Department Care Team (Late st Contact Info) Description 04/12/2006 Results Only [facility] - Maple conversion [address] [place] [address] Unknown, Provider, Social History Tobacco Use Types Packs/Day Years Used Date Smoking Tobacco: Never Assessed Sex and Gender Information Value Date Recorded Sex Assigned at Not on file Gender Identity Female 07/07/2019 11:20 EST Sexual Orientation Not on file documented as of this encounter Plan of Treatment Not on file documented as of this encounter Procedures Procedure Name Priority Date/Time Associated Diagnosis Comments RUBELLA IGG ANTIBODY Routine 04/12/2006 9:34 EDT HEPATITIS B SURFACE ANTIGEN Routine 04/12/2006 9:34 EDT SYPHILIS SERO (RPR) Routine 04/12/2006 9:34 EDT documented in this encounter Results * RUBELLA IGG ANTIBODY (04/12/2006 9:34 EDT) Rubella IgG Ab Antibody detected Assayed utilizing the [facility] Immulite 2500. Values may vary with other methods. [facility] 04/12/2006 9:34 EDT 04/12/2006 22:15 EDT Provider Unknown CHEMISTRY & BLOOD GA S ORDERABLES Performing Organization Address [facility] Co de Phone Number [place] [address] * SYPHILIS SERO (RPR) (04/12/2006 9:34 EDT) Syphilis Sero (RPR) NONREACT. NR Dils [facility] 04/12/2006 9:34 EDT 04/12/2006 22:15 EDT Provider Unknown IMMUNOLOGY AND SEROL OGY ORDERABLES Performing Organization Address [facility] de Phone Number [facility] [address] [address] * HEPATITIS B SURFACE ANTIGEN (04/12/2006 9:34 EDT) Hepatitis B Surface Ag Neg [facility] 04/12/2006 9:34 EDT 04/12/2006 22:15 EDT Provider Unknown CHEMISTRY & BLOOD GA S ORDERABLES Performing Organization Address [facility] Co de Phone Number [facility] [address] [address] documented in this encounter Visit Diagnoses Not on filedocumented in this encounter Care Teams Tassel Snipper Relationship Specialty Start Date End Date Jose Hillman MD PCP - General 04/02/09 07/06/19 Aric Hurley MD PCP - General 01/13/09 04/01/09 documented as of this encounter
--- OUTSIDE RECORDS SUMMARY | 2024-03-19 06:25 | XMS_ITS | Encounter Summary ---
Author Organization [facility] Address [address] [place] [address] Care Team Providers Care Nuclear Fuels Reclamation Engineer Name Role Phone Jose Hillman MD Primary Care Provider Unav Aric Chow MD Primary Care Provider Un available Encounter Details Date Type Department Care Team (Late st Contact Info) Description 11/29/2006 Results Only [facility] [address] [place] [address] Abner Anand MD Social History Tobacco Use [...] Priority Date/Time Associated Diagnosis Comments CYTOPATHOLOGY Routine 11/29/2006 0:00 EDT documented in this encounter Results * CYTOPATHOLOGY (11/29/2006 0:00 EDT) Pathology Report: CYTOPATHOLOGY REPORT Reports generated via electronic interface contain original data; however they are lacking the format of the original report. Caution should be taken when reading/interpreti ng unformatted reports. Name: ? MARÍA ELENA FORD ? Accession #: ? [id number] : ? 1985 (Age: 21) ??F ?Collect Date: ? 11/29/2006 Location: ? [facility] ? Receive Date: ? 11/30/2006 Provider: ?ABNER ANAND MD Copy to: ? Specimen/Source: ?ThinPrep Pap Test, Cervix/Endocervix, processed on [employer] ThinPrep Imaging System, with manual evaluation Last Menstrual Period: ? 11/19/06 Menstrual/Pregnanc y Status: ? Post Other: ? HPVA - HPV testing requested if ASC-US on the current ThinPrep Pap test. ? SPECIMEN ADEQUACY ? Satisfactory for Evaluation - transformation zone component present GENERAL CATEGORIZATION ? Negative for Intraepithelial Lesion or Malignancy ? Document reviewed and electronically signed by: ? KATHERINE Dey(ASCP) ? Report Date: ??12/04/2006 11:10 End of Report MARÍA ELENA LAU 11/29/2006 11/30/2006 Abner Anand MD PATHOLOGY ORDERABLES MARÍA ELENA LAU [address] [place] [address] documented in this encounter Visit Diagnoses Not on filedocumented in this encounter Care Teams Nuclear Fuels Reclamation Engineer Relationship Specialty Start Date End Date Jose Hillman MD PCP - General 04/02/09 07/06/19 Aric Hurley MD PCP - General 01/13/09 04/01/09 documented as of this encounter
--- OUTSIDE RECORDS SUMMARY | 2024-03-19 06:25 | XMS_ITS | Encounter Summary ---
Author Organization [facility] Address [address] [place] [address] Care Team Providers Care Conveyor Operator Name Role Phone Jose Hillman MD Primary Care Provider Georgie Brennan APRN Primary Care Provider + Encounter Details Date Type Department Care Team (Late st Contact Info) Description 06/12/2019 Results Only Imaging [facility] - [facility] Radiology Results [address] [place] [address] Jossie Lema, CHRISSIE [address] [place] [address] [place] [address] Social History Tobacco Use Types Packs/Day Years Used Date Smoking Tobacco: Never Assessed Sex and Gender Information Value Date Recorded Sex Assigned at Not on file Gender Identity Female 07/07/2019 11:20 EST Sexual Orientation Not on file documented as of this encounter Plan of Treatment Not on file documented as of this encounter Procedures Procedure Name Priority Date/Time Associated Diagnosis Comments XR LUMBAR SPINE COMPLETE WITH FLEX/EXT AND OBLIQUES MIN 6 VIEWS 06/12/2019 12:21 EDT documented in this encounter Results * XR LUMBAR SPINE COMPLETE WITH FLEX/EXT AND OBLIQUES MIN 6 VIEWS (06/12/2019 12:21 EDT) Anatomical Region Laterality Modality Other 06/12/2019 12:1 8 EDT Narrative 06/12/2019 12:21 EDT ? EXAM: RADIOLOGY/LUMBAR SPINE WITH FLEX/EX EX. D/ (1100) ? CLINICAL INFORMATION: ? M54.5 LUMBAR PAIN ? INDICATION: M54.[address] TAPIA REFERRAL - BACK PAIN WITH ? PERSISTENT RI ? TECHNIQUE: 4 view lumbar spine with flexion-extension views. ? COMPARISON: None ? FINDINGS: There is a transitional type SI vertebral body, which ? appears partially lumbarized. No gross subluxation with flexion or ? extension is seen. There is a convex left lumbar scoliosis centered ? at the L3 vertebral body level. The lumbar vertebral bodies maintain ? normal height. Disc space narrowing and hypertrophic facet changes ? are seen at L5/S1. ? IMPRESSION: ? 1. Transitional type SI vertebral body. ? 2. L5/S1 degenerative disc and facet disease. ? REPORT SIGNED IN OTHER VENDOR SYSTEM 06/12/2019 ?Reported By: Dar Bolivar MD ? CC: ? Transcribed Date/Time: 06/12/2019 (1221) ? Weapons Specialist: ? Printed Date/Time: 06/12/2019 (1221) ? PAGE 1 ? Signed Report ? Procedure Note Dar Bolivar MD - 07/12/2019 EXAM: RADIOLOGY/LUMBAR SPINE WITH FLEX/EX EX. D/ (1100) CLINICAL INFORMATION: M54.5 LUMBAR PAIN INDICATION: M54.[address] TAPIA REFERRAL - BACK PAIN WITH PERSISTENT RI TECHNIQUE: 4 view lumbar spine with flexion-extension views. COMPARISON: None FINDINGS: There is a transitional type SI vertebral body, which appears partially lumbarized. No gross subluxation with flexion or extension is seen. There is a convex left lumbar scoliosis centered at the L3 vertebral body level. The lumbar vertebral bodiesmaintain normal height. Disc space narrowing and hypertrophic facet changes are seen at L5/S1. IMPRESSION: 1. Transitional type SI vertebral body. 2. L5/S1 degenerative disc and facet disease. REPORT SIGNED IN OTHER VENDOR SYSTEM 06/12/2019 Reported By: Dar Bolivar MD CC: Transcribed Date/Time: 06/12/2019 (1224) Weapons Specialist: Printed Date/Time: 06/12/2019 (2711) PAGE 1 Signed Report Josise Lema NP IMG DIAGNOSTIC IMAGI NG ORDERABLES documented in this encounter Visit Diagnoses Not on filedocumented in this encounter Care Teams Conveyor Operator Relationship Specialty Start Date End Date Jose Hillman MD PCP - General 04/02/09 07/06/19 Georgie Stewart, FILM OR VIDEOTAPE EDITOR [address] [place] [phone] PCP - General 07/07/19 documented as of this encounter
--- OUTSIDE RECORDS SUMMARY | 2024-03-19 06:25 | XMS_ITS | Encounter Summary ---
Author Organization [facility] Address [address] [place] [address] Care Team Providers Care Rooter Operator Name Role Phone Jose Hillman MD Primary Care Provider Unav ailable Encounter Details Date Type Department Care Team (Late st Contact Info) Description 08/09/2009 Abstract [facility] [address] [place] [address] Jose Hillman MD Spotting in Social History Tobacco Use Types Packs/Day Years Used Date Smoking Tobacco: Never Assessed Sex and Gender Information Value Date Recorded Sex Assigned at Not on file Gender Identity Female 07/07/2019 11:20 EST Sexual Orientation Not on file documented as of this encounter Plan of Treatment Not on file documented as of this encounter Visit Diagnoses Diagnosis Spotting in Spotting complicating , unspecified as to episode of care or not applicable documented in this encounter Care Teams Rooter Operator Relationship Specialty Start Date End Date Jose Hillman MD PCP - General 04/02/09 07/06/19 documented as of this encounter
--- OUTSIDE RECORDS SUMMARY | 2024-03-19 06:25 | XMS_ITS | Encounter Summary ---
Author Organization [facility] Address [address] [place] [address] Care Team Providers Care Clinical Team Manager Name Role Phone Jose Hillman MD Primary Care Provider Unav ailable Encounter Details Date Type Department Care Team (Late st Contact Info) Description 09/24/2018 Historical Results Only [facility] - [facility] Lab - Main [place] [address] [place] [address] MD [address] [place] [address]-, [address] [place] [address] Social History Tobacco Use Types Packs/Day Years Used Date Smoking Tobacco: Never Assessed Sex and Gender Information Value Date Recorded Sex Assigned at Not on file Gender Identity Female 07/07/2019 11:20 EST Sexual Orientation Not on file documented as of this encounter Plan of Treatment Not on file documented as of this encounter Procedures Procedure Name Priority Date/Time Associated Diagnosis Comments COMPLETE BLOOD COUNT WITH DIFFERENTIAL (AUTO) Routine 09/24/2018 11:00 EST THYROID CASCADE Routine 09/24/2018 11:00 EST HPV DNA DETECTION WITH GENOTYPING, PCR Routine 09/24/2018 9:38 EST PAP TEST Routine 09/24/2018 documented in this encounter Results * THYROID CASCADE (09/24/2018 11:00 EST) TSH 2.06 0.46 - 4.68 uIU/mL 09/24/2018 12:28 [facility] 09/24/2018 11:0 0 EST 09/24/2018 11:00 EST Narrative [facility] - 09/24/2018 12:28 EST Does PT Have a Latex Allergy? YES Swati Lane MD CHEMISTRY & BLOOD GA S ORDERABLES [facility] * COMPLETE BLOOD COUNT WITH DIFFERENTIAL (AUTO) (09/24/2018 11:00 EST) ABSOLUTE NEUTROPHIL COUN - [facility] 5.1 2.2 - 8.85 10e3/uL 09/24/2018 11:40 [facility] BASO # - [facility] 0.05 0.01 - 0.11 10e/uL 09/24/2018 11:40 [facility] BASO % - [facility] 1 0 - 2 % 09/24/2018 11:40 [facility] EOS # - [facility] 0.12 0.03 - 0.61 10e3/ul 09/24/2018 11:40 [facility] EOS % - [facility] 1 0 - 5 % 09/24/2018 11:40 [facility] GRAN % - [facility] 59.6 40 - 80 % 09/24/2018 11:40 [facility] HEMATOCRIT - [facility] 42.7 34.9 - 44.4 % 09/24/2018 11:40 [facility] HEMOGLOBIN - [facility] 13.9 11.6 - 15.2 g/dl 09/24/2018 11:40 [facility] IG# - [facility] 0.03 0 - 0.7 10e3/uL 09/24/2018 11:40 [facility] IG% - [facility] 0.4 0 - 0.9 % 09/24/2018 11:40 [facility] LYMPH # - [facility] 2.6 1.09 - 3.3 10e3/ul 09/24/2018 11:40 [facility] LYMPH% - [facility] 30.3 20 - 40 % 09/24/2018 11:40 [facility] MEAN CORPUSCULAR HGB - [facility] 29.1 26.7 - 33.3 pg 09/24/2018 11:40 [facility] MEAN CORPUSCULAR HGB CONC - [facility] 32.6 32.1 - 35.9 g/dL 09/24/2018 11:40 [facility] MEAN CELL VOLUME - [facility] 89.3 81 - 98 fl 09/24/2018 11:40 [facility] MONO # - [facility] 0.7 0.1 - 0.8 10e3/uL 09/24/2018 11:40 [facility] MONO% - [facility] 7.7 0 - 12 % 09/24/2018 11:40 [facility] PLATELET COUNT 349 141 - 377 10e3/ul 09/24/2018 11:40 [facility] RED BLOOD COUNT - [facility] 4.78 3.86 - 5.04 10e3/ul 09/24/2018 11:40 [facility] RED CELL DISTRI WIDTH - [facility] 13.3 <14.7 % 09/24/2018 11:40 [facility] WHITE BLOOD COUNT - [facility] 8.6 4.0 - 12.4 10e3/ul 09/24/2018 11:40 [facility] 09/24/2018 11:0 0 EST 09/24/2018 11:00 EST [facility] - 09/24/2018 11:40 EST Does PT Have a Latex Allergy? YES Swati Lane MD HEMATOLOGY & PF4 ORD ERABLES [facility] * HUMAN PAPILLOMAVIRUS (HPV) DETECTION-HIGH RISK TYPES (09/24/2018 9:38 EST) HPV other High Risk types, PCR NEG 09/30/2018 15:10 [facility] Comment: Negative for HPV types 16, 18, 31, 33, 35, 39, 45, 51, 52, 56, 58, 59, 66, 68. Method: Cervista HPV HR (High Risk) DNA test. 09/24/2018 9:38 EST 09/25/2018 9:[address] MD MICROBIOLOGY - GENER AL ORDERABLES [facility] * PAP TEST (09/24/2018) 09/24/2018 09/25/2018 9:3 7 EST Narrative [facility] - 09/30/2018 15:53 EST ----- ------- Name: MARÍA ELENA FORD ? : [birth year] ?Age/Sex: 33/F ?Unit#: [id number] ? Loc: AGO ? Status: REG POV ?? Reg Date: 09/24/18 ? Pt.Phone Number: ? ----- ------- Specimen: [id number] ? STATUS: SOUT ?Spec Date:09/24/18 ? Physician Copies: ?Swati Lane MD ?? Tissues: ? Cervical/Endo Pap ?Georgie Stewart CPT: 08933 ?? Units: ??1 ----- ------- ? CYTOLOGY DIAGNOSIS SPECIMEN ADEQUACY: ?Satisfactory for evaluation. Transformation zone component present. Scant squamous epithelial component secondary to excessive mucus. GENERAL CATEGORIZATION: ?Negative for Intraepithelial Lesion or Malignancy DESCRIPTIVE DIAGNOSIS: ? Negative for Intraepithelial Lesion or Malignancy. ----- ------- ?HPV DNA RESULTS ? LABORATORY ?? Date ? Time Test ?Result ?? Flag ?Normal Range ?? 09/24/18 0938 HPV DNA RESULT ??NEG ? Negative for HPV types 16, 18, 31, 33, 35, 39, 45, 51, 52, ? 56, 58, 59, 66, 68. ? Method: Cervista HPV HR (High Risk) DNA test. ----- ------- ORDER QUERIES: LMP: 09/09/18- ? N Post ? N ??PREVIOUS ATYPICAL: N BCP/HRT? N Rad Rx? N IUD? N ??PAP PLUS HPV? Y ??REFLEX TO HR-HPV IF ASCUS N REFLEX TO HPV 16/18 IF HPV POS/PAP NEG N HPV REGARDLESS? Y ??RFLX HPV IF LSIL ?? Signed Ravinder Demarco CT(ASCP) 09/30/18 By the signature above, the attending physician certifies that he/she has personally conducted a gross and/or microscopic examination of the described specimens and rendered or confirmed the above diagnosis. Test Performed by [facility], [address] [place] [address] Corrugator Operator: Yee Hines MD PHD ----- ------- Swati Lane MD PATHOLOGY ORDERABLES Performing Organization Address City/State/[facility] Co de Phone Number [facility] documented in this encounter Visit Diagnoses Not on filedocumented in this encounter Care Teams Clinical Team Manager Relationship Specialty Start Date End Date Jose Hillman MD PCP - General 04/02/09 07/06/19 documented as of this encounter
--- OUTSIDE RECORDS SUMMARY | 2024-03-19 06:25 | XMS_ITS | Encounter Summary ---
Author Organization [facility] Address [address] [place] [address] Care Team Providers Care Gas Meter Installer Helper Name Role Phone Jose Hillman MD Primary Care Provider Unav ailable Encounter Details Date Type Department Care Team (Late st Contact Info) Description 03/10/2019 Historical Results Only [facility] Lab - Main [place] [address] [place] [address] MD [address] [place] [address], [address] [place] [address] Social History Tobacco Use Types Packs/Day Years Used Date Smoking Tobacco: Never Assessed Sex and Gender Information Value Date Recorded Sex Assigned at Not on file Gender Identity Female 07/07/2019 11:20 EST Sexual Orientation Not on file documented as of this encounter Plan of Treatment Not on file documented as of this encounter Procedures Procedure Name Priority Date/Time Associated Diagnosis Comments [facility] Routine 03/10/2019 10 :24 EDT COMPLETE BLOOD COUNT WITH DIFFERENTIAL (AUTO) Routine 03/10/2019 10:24 EDT TYPE AND SCREEN Routine 03/10/2019 10:24 EDT documented in this encounter Results * [facility] (03/10/2019 10:24 EDT) [facility] NEG 03/10/2019 12:06 EDT [facility] 03/10/2019 10:2 4 EDT 03/10/2019 10:24 EDT Narrative [facility] - 03/10/2019 12:06 EDT Does PT Have a Latex Allergy? YES Enter/Edit CPT and ICD codes? N Swati Lane MD HEMATOLOGY & PF4 ORD ERABLES [facility] * (ABNORMAL) COMPLETE BLOOD COUNT WITH DIFFERENTIAL (AUTO) (03/10/2019 10:24 EDT) ABSOLUTE NEUTROPHIL COUN - [facility] 4.5 2.2 - 8.85 10e3/uL 03/10/2019 11:41 EDT [facility] BASO # - [facility] 0.06 0.01 - 0.11 10e/uL 03/10/2019 11:41 EDT [facility] BASO % - [facility] 1 0 - 2 % 03/10/2019 11:41 EDT [facility] EOS # - [facility] 0.14 0.03 - 0.61 10e3/ul 03/10/2019 11:41 EDT [facility] EOS % - [facility] 2 0 - 5 % 03/10/2019 11:41 EDT [facility] GRAN % - [facility] 60.7 40 - 80 % [facility] 44.9(H) 34.9 - 44.4 % 03/10/2019 11:41 T [facility] HEMOGLOBIN - [facility] 14.6 11.6 - 15.2 g/dl 03/10/2019 11:41 [facility] IG# - [facility] 0.04 0 - 0.7 10e3/uL 03/10/2019 11:41 EDT [facility] IG% - [facility] 0.5 0 - 0.9 % 03/10/2019 [facility] LY[facility]H # - [facility] 2.2 1.09 - 3.3 10e3/ul 03/10/2019 11:41 T [facility] LYMPH% - [facility] 29.5 20 - 40 % 03/10/2019 11:41 [facility] MEAN CORPUSCULAR HGB - [facility] 30.6 26.7 - 33.3 pg 03/10/2019 11:41 [facility] MEAN CORPUSCULAR HGB CONC - [facility] 32.5 32.1 - 35.9 g/dL 03/10/2019 11:41 [facility] MEAN CELL VOLUME - [facility] 94.1 81 - 98 fl 03/10/2019 11:41 [facility] MONO # - [facility] 0.5 0.1 - 0.8 10e3/uL 03/10/2019 11:41 [facility] MONO% - [facility] 6.6 0 - 12 % 03/10/2019 11:41 [facility] PLATELET COUNT 295 141 - 377 10e3/ul 03/10/2019 11:41 [facility] RED BLOOD COUNT - [facility] 4.77 3.86 - 5.04 10e3/ul 03/10/2019 11:41 [facility] RED CELL DISTRI WIDTH - [facility] 12.3 <14.7 % 03/10/2019 11:41 [facility] WHITE BLOOD COUNT - [facility] 7.4 4.0 - 12.4 10e3/ul 03/10/2019 11:41 [facility] 03/10/2019 10:2 4 EDT 03/10/2019 10:24 EDT Narrative [facility] - 03/10/2019 11:41 EDT Does PT Have a Latex Allergy? YES Swati Lane MD HEMATOLOGY & PF4 ORD ERABLES [facility] * TYPE AND SCREEN (03/10/2019 10:24 EDT) BLOOD TYPE - [facility] O Positive [facility] Antibody Screen NEGATIVE [facility] Specimen Expires: 03/31/19 [id number] [facility] 03/10/2019 10:2 4 EDT 03/10/2019 10:24 EDT Narrative [facility] - 03/10/2019 10:18 EDT Does PT Have a Latex Allergy? YES IS THIS A PREOPERATIVE PATIENT? Y IF YES, DATE OF SURGERY: 03/19/[address] MD BLOOD BANK TESTS [facility] documented in this encounter Visit Diagnoses Not on filedocumented in this encounter Care Teams Gas Meter Installer Helper Relationship Specialty Start Date End Date Jose Hillman MD PCP - General 04/02/09 07/06/19 documented as of this encounter
--- OUTSIDE RECORDS SUMMARY | 2024-03-19 06:25 | XMS_ITS | Encounter Summary ---
Author Organization [facility] Address [address] [place] [address] Care Team Providers Care Manager Of Change Name Role Phone Jose Hillman MD Primary Care Provider Unav ailable Encounter Details Date Type Department Care Team (Latest Contact Info) Description 09/30/2018 11:44 EST - 09/30/2018 23:59 EST Hospital Encounter [facility] [address] [place] [address] Unknown, Provider, Discharge Disposition: Home or Self Care Social History Tobacco Use Types Packs/Day Years Used Date Smoking Tobacco: Never Assessed Sex and Gender Information Value Date Recorded Sex Assigned at Not on file Gender Identity Female 07/07/2019 11:20 EST Sexual Orientation Not on file documented as of this encounter Discharge Disposition Disposition Code Departure Means Destination Home or Self Residential documented in this encounter Plan of Treatment Not on file documented as of this encounter Visit Diagnoses Not on filedocumented in this encounter Care Teams Manager Of Change Relationship Specialty Start Date End Date Jose Hillman MD PCP - General 04/02/09 07/06/19 documented as of this encounter
--- OUTSIDE RECORDS SUMMARY | 2024-03-19 06:25 | XMS_ITS | Encounter Summary ---
Author Organization [facility] Address [address] [place] [address] Care Team Providers Care Perforator Loader Name Role Phone Jose Hillman MD Primary Care Provider Unav ailable Encounter Details Date Type Department Care Team (Late st Contact Info) Description 04/06/2009 Orders Only [facility] [phone] Abner Anand MD Social History Tobacco Use [...] Procedure Name Priority Date/Time Associated Diagnosis Comments [employer] ROUTINE 04/06/2009 14:46 EDT documented in this encounter Results * [employer] ROUTINE (04/06/2009 14:46 EDT) Anatomical Region Laterality Modality Other 04/06/2009 14:4 6 EDT 04/13/2009 5:40 EDT Narrative 04/13/2009 5:40 EDT Please refer to the separate [facility] report. ??Contact Maternal Medicine. Procedure Note 04/13/2009 Please refer to the separate [facility] report. Contact Maternal Medicine. Abner Anand MD IMG [facility] ORDERABLE S documented in this encounter Visit Diagnoses Not on filedocumented in this encounter Care Teams Perforator Loader Relationship Specialty Start Date End Date Jose Hillman MD PCP - General 04/02/09 07/06/19 documented as of this encounter
--- OUTSIDE RECORDS SUMMARY | 2024-03-19 06:25 | XMS_ITS | Encounter Summary ---
Author Organization [facility] Address [address] [place] [address] Care Team Providers Care Copier Technician Name Role Phone Jose Hillman MD Primary Care Provider Georgie Brennan APRN Primary Care Provider + Encounter Details Date Type Department Care Team (Late st Contact Info) Description 06/30/2019 Results Only [facility] - Main [place] [address] [place] [address] MD [address] [place] [address], [address] [place] [address] Social History Tobacco Use Types Packs/Day Years Used Date Smoking Tobacco: Never Assessed Sex and Gender Information Value Date Recorded Sex Assigned at Not on file Gender Identity Female 07/07/2019 11:20 EST Sexual Orientation Not on file documented as of this encounter Plan of Treatment Not on file documented as of this encounter Procedures Procedure Name Priority Date/Time Associated Diagnosis Comments [facility] S[facility] - [facility] Routine 06/30/2019 11 :22 EDT COMPLETE BLOOD COUNT WITH DIFFERENTIAL (AUTO) Routine 06/30/2019 11:22 EDT TYPE AND SCREEN Routine 06/30/2019 11:22 EDT documented in this encounter Results * TYPE AND SCREEN (06/30/2019 11:22 EDT) [facility] TYPE - [facility] O Positive [facility] Antibody Screen NEGATIVE [facility] Specimen Expires: 07-21-19 [id number] [facility] 06/30/2019 11:2 2 EDT 06/30/2019 11:22 EDT Narrative [facility] - 06/30/2019 11:12 EDT Does PT Have a Latex Allergy? YES IS THIS A PREOPERATIVE PATIENT? N Swati Lane MD BLOOD BANK TESTS [facility] * BHCG SCREEN - CV (06/30/2019 11:22 EDT) [facility] SCREEN - [facility] NEG 06/30/2019 11:43 EDT [facility] 06/30/2019 11:2 2 EDT 06/30/2019 11:22 EDT Narrative [facility] - 06/30/2019 11:43 EDT Does PT Have a Latex Allergy? YES Enter/Edit CPT and ICD codes? N Swati Lane MD HEMATOLOGY & PF4 ORD ERABLES [facility] * COMPLETE BLOOD COUNT WITH DIFFERENTIAL (AUTO) (06/30/2019 11:22 EDT) ABSOLUTE NEUTROPHIL COUN - [facility] 4.3 2.2 - 8.85 10e3/uL 06/30/2019 11:32 EDT [facility] BASO # - [facility] 0.05 0.01 - 0.11 10e/uL 06/30/2019 11:32 EDT [facility] BASO % - [facility] 1 0 - 2 % 06/30/2019 11:32 EDT [facility] EOS # - [facility] 0.16 0.03 - 0.61 10e3/ul 06/30/2019 11:32 EDT [facility] EOS % - [facility] 2 0 - 5 % 06/30/2019 11:32 EDT [facility] GRAN % - [facility] 58.7 40 - 80 % 06/30/2019 11:32 [facility] HEMATOCRIT - CV 38.3 34.9 - 44.4 % 06/30/2019 11:32 [facility] HEMOGLOBIN - CV 12.6 11.6 - 15.2 g/dl 06/30/2019 11:32 [facility] IG# - [facility] 0.02 0 - 0.7 10e3/uL 06/30/2019 11:32 [facility] IG% - [facility] 0.3 0 - 0.9 % 06/30/2019 11:32 [facility] LYMPH # - [facility] 2.3 1.09 - 3.3 10e3/ul 06/30/2019 11:32 [facility] LYMPH% - [facility] 31.7 20 - 40 % 06/30/2019 11:32 [facility] MEAN CORPUSCULAR HGB - CV 30.6 26.7 - 33.3 pg 06/30/2019 11:32 [facility] MEAN CORPUSCULAR HGB CONC - [facility] 32.9 32.1 - 35.9 g/dL 06/30/2019 11:32 [facility] MEAN CELL VOLUME - [facility] 93.0 81 - 98 fl 06/30/2019 11:32 [facility] MONO # - [facility] 0.5 0.1 - 0.8 10e3/uL 06/30/2019 11:32 [facility] MONO% - [facility] 6.4 0 - 12 % 06/30/2019 11:32 [facility] PLATELET COUNT 331 141 - 377 10e3/ul 06/30/2019 11:32 [facility] RED BLOOD COUNT - [facility] 4.12 3.86 - 5.04 10e3/ul 06/30/2019 11:32 [facility] RED CELL DISTRI WIDTH - [facility] 12.1 <14.7 % 06/30/2019 11:32 [facility] WHITE BLOOD COUNT - [facility] 7.4 4.0 - 12.4 10e3/ul 06/30/2019 11:32 [facility] 06/30/2019 11:2 2 EDT 06/30/2019 11:22 EDT Narrative [facility] - 06/30/2019 11:32 EDT Does PT Have a Latex Allergy? YES Swati Lane MD HEMATOLOGY & PF4 ORD ERABLES [facility] documented in this encounter Visit Diagnoses Not on filedocumented in this encounter Care Teams Copier Technician Relationship Specialty Start Date End Date Jose Hillman MD PCP - General 04/02/09 07/06/19 Georgie Stewart, SHIFT SUPERVISOR MELTING [address] [place] [address] PCP - General 07/07/19 documented as of this encounter
--- OUTSIDE RECORDS SUMMARY | 2024-03-19 06:25 | XMS_ITS | Encounter Summary ---
Author Organization [facility] Address [address] [place] [address] Care Team Providers Care Orange Grower Name Role Phone Jose Hillman MD Primary Care Provider Unav Aric Chow MD Primary Care Provider Un available Encounter Details Date Type Department Care Team (Late st Contact Info) Description 02/05/2007 Results Only [facility] - [place] [address] [place] [address] Unknown, Provider, Social History Tobacco Use Types Packs/Day Years Used Date Smoking Tobacco: Never Assessed Sex and Gender Information Value Date Recorded Sex Assigned at Not on file Gender Identity Female 07/07/2019 11:20 EST Sexual Orientation Not on file documented as of this encounter Plan of Treatment Not on file documented as of this encounter Procedures Procedure Name Priority Date/Time Associated Diagnosis Comments CHLAMYDIA/GC AMPLIFIED PROBE Routine 02/05/2007 13:29 EDT documented in this encounter Results * CHLAMYDIA/GC AMPLIFIED PROBE (02/05/2007 13:29 EDT) Specimen Description V[facility] Result No Chlamydia trachomatis or Neisseria gonorrhoeae DNA detected by grocery store clerk mediated amplification. [facility] Report Status Final [id number] [facility] 02/05/2007 13:2 9 EDT 02/05/2007 22:42 EDT Provider Unknown MICROBIOLOGY - GENER AL ORDERABLES [facility] [address] [place] [address] documented in this encounter Visit Diagnoses Not on filedocumented in this encounter Care Teams Orange Grower Relationship Specialty Start Date End Date Jose Hillman MD PCP - General 04/02/09 07/06/19 Aric Hurley MD PCP - General 01/13/09 04/01/09 documented as of this encounter
--- OUTSIDE RECORDS SUMMARY | 2024-03-19 06:25 | XMS_ITS | Encounter Summary ---
Author Organization [facility] Address [address] [place] [address] Care Team Providers Care Evaporative Cooler Installer Name Role Phone Jose Hillman MD Primary Care Provider Georgie Brennan APRN Primary Care Provider + Encounter Details Date Type Department Care Team (Late st Contact Info) Description 06/13/2019 Results Only [facility] - [facility] Lab - Main [address] [address] Flynn Smith MD [address] [place] [phone] Social History Tobacco Use Types Packs/Day Years Used Date Smoking Tobacco: Never Assessed Sex and Gender Information Value Date Recorded Sex Assigned at Not on file Gender Identity Female 07/07/2019 11:20 EST Sexual Orientation Not on file documented as of this encounter Plan of Treatment Not on file documented as of this encounter Procedures Procedure Name Priority Date/Time Associated Diagnosis Comments COMPREHENSIVE METABOLIC PANEL (CMP) Routine 06/13/2019 13:46 EDT documented in this encounter Results * (ABNORMAL) COMPREHENSIVE METABOLIC PANEL (CMP) (06/13/2019 13:46 EDT) Albumin % 4.0 3.4 - 4.9 g/dL 06/13/2019 14:06 EDT [facility] ALKALINE PHOSPHATASE - [facility] 61 38 - 126 U/L 06/13/2019 14:06 EDT [facility] BILIRUBIN TOTAL 0.6 0.2 - 1.3 mg/dL 06/13/2019 14:06 [facility] BUN - [facility] 9(L) 10 - 26 mg/dL 06/13/2019 14:06 [facility] CALCIUM - [facility] 9.1 8.5 - 10.5 mg/dL 06/13/2019 14:06 [facility] Chloride 110 96 - 110 mmol/L 06/13/2019 14:06 [facility] CO2 Total 20(L) 22 - 32 mEq/L 06/13/2019 14:06 [facility] CREATININE 0.74 0.52 - 1.04 mg/dL 06/13/2019 14:06 [facility] eGFR >60 06/13/2019 14:06 [facility] Comment: Chronic renal impairment is defined as GFR <60 Multiply result by 1.210 for patients. eGFR calculated using the IDMS-traceable MDRD Study Equation. ??(effective 07/06/2014) Anion Gap 12 0 - 18 06/13/2019 14:06 [facility] GLUCOSE - [facility] 105(H) 70 - 100 mg/dL 06/13/2019 14:06 [facility] Potassium 3.5 3.5 - 5.0 mEq/L 06/13/2019 14:06 [facility] Sodium 142 136 - 145 mEq/L 06/13/2019 14:06 [facility] TOTAL PROTEIN - [facility] 7.2 6.2 - 8.2 gm/dL 06/13/2019 14:06 [facility] SGOT/AST - [facility] 27 14 - 36 U/L 06/13/2019 14:06 [facility] SGPT/ALT - [facility] 37 9 - 52 U/L 9 14:06 [facility] 06/13/2019 13:4 6 EDT 06/13/2019 13:49 EDT Flynn Smith MD CHEMISTRY & BLOOD GA S ORDERABLES [facility] documented in this encounter Visit Diagnoses Not on filedocumented in this encounter Care Teams Evaporative Cooler Installer Relationship Specialty Start Date End Date Jose Hillman MD PCP - General 04/02/09 07/06/19 Georgie Stewart APRN [address] [place] [address] PCP - General 07/07/19 documented as of this encounter
--- OUTSIDE RECORDS SUMMARY | 2024-03-19 06:25 | XMS_ITS | Encounter Summary ---
Author Organization [facility] Address [address] [place] [address] Care Team Providers Care Pipe Fitter Name Role Phone Jose Hillman MD Primary Care Provider Unav Aric Chow MD Primary Care Provider Un available Encounter Details Date Type Department Care Team (Late st Contact Info) Description 03/12/2007 Results Only [facility] - Maple conversion [address] [place] [address] Unknown, Provider, Social History Tobacco Use Types [...] Associated Diagnosis Comments RUBELLA IGG ANTIBODY Routine 03/12/2007 9:55 EDT HEPATITIS B SURFACE ANTIGEN Routine 03/12/2007 9:55 EDT SYPHILIS SERO (RPR) Routine 03/12/2007 9 :55 EDT HIV 1/2 ANTIGEN AND ANTIBODY, 4TH GENERATION Routine 03/12/2007 9:55 EDT documented in this encounter Results * RUBELLA IGG ANTIBODY (03/12/2007 9:55 EDT) Rubella IgG Ab Antibody detected Assayed utilizing the [facility] Immulite 2500. Values may vary with other methods. [facility] 03/12/2007 9:55 EDT 03/12/2007 22:19 EDT Provider Unknown CHEMISTRY & BLOOD GA S ORDERABLES Performing Organization Address [facility] Co de Phone Number [facility] [address] [place] [address] * SYPHILIS SERO (RPR) (03/12/2007 9:55 EDT) Syphilis Sero (RPR) NONREACT. NR Dils [facility] 03/12/2007 9:55 EDT 03/12/2007 22:19 EDT Provider Unknown IMMUNOLOGY AND SEROL OGY ORDERABLES Performing Organization Address [facility] Phone Number [facility] [address] [place] [address] * HIV ANTIBODY (NATHANAEL) (03/12/2007 9:55 EDT) HIV 1/2 Antibody NONREACT. NR [facility] 03/12/2007 9:55 EDT 03/12/2007 22:19 EDT Provider Unknown IMMUNOLOGY AND SEROL OGY ORDERABLES Performing Organization Address [facility] de Phone Number [facility] [address] [place] [address] * HEPATITIS B SURFACE ANTIGEN (03/12/2007 9:55 EDT) Hepatitis B Surface Ag Neg [facility] 03/12/2007 9:55 EDT 03/12/2007 22:19 EDT Provider Unknown CHEMISTRY & BLOOD GA S ORDERABLES Performing Organization Address [facility] Co de Phone Number [facility] [address] [place] [address] documented in this encounter Visit Diagnoses Not on filedocumented in this encounter Care Teams Pipe Fitter Relationship Specialty Start Date End Date Jose Hillman MD PCP - General 04/02/09 07/06/19 Aric Hurley MD PCP - General 01/13/09 04/01/09 documented as of this encounter
--- OUTSIDE RECORDS SUMMARY | 2024-03-19 06:25 | XMS_ITS | Encounter Summary ---
Author Organization [facility] Address [address] [place] [address] Care Team Providers Care Driller Operator Name Role Phone Georgie Stewart APRN Primary Care Provider + Reason for Visit * Reason Onset Date Comments Other 07/14/2019 surgery date? Encounter Details Date Type Department Care Team (Late st Contact Info) Description 07/14/2019 Telephone [facility] [address] [place] [address] MD [address] [facility], [address] [place] [address] Other (surgery date? ) Social History Tobacco Use Types Packs/Day Years Used Date Smoking Tobacco: Never Assessed Sex and Gender Information Value Date Recorded Sex Assigned at Not on file Gender Identity Female 07/07/2019 11:20 EST Sexual Orientation Not on file documented as of this encounter Miscellaneous Notes * Telephone Encounter - Cyndee Magdaleno - 07/21/2019 0952 EST [phone] - maría elena wants to know when her surgery is scheduled please documented in this encounter Plan of Treatment Not on file documented as of this encounter Visit Diagnoses Not on filedocumented in this encounter Care Teams Driller Operator Relationship Specialty Start Date End Date Georgie Stewart APRN [address] [place] [address] PCP - General 07/07/19 documented as of this encounter
--- OUTSIDE RECORDS SUMMARY | 2024-03-19 06:25 | XMS_ITS | Encounter Summary ---
Author Organization [facility] Address [address] [place] [address] Care Team Providers Care Airplane Fueler Name Role Phone Jose Hillman MD Primary Care Provider Georgie Brennan APRN Primary Care Provider + Encounter Details Date Type Department Care Team (Late st Contact Info) Description 06/13/2019 Historical Results Only [facility] - Main [address] [address] Flynn Smith MD [address] [place] [phone] Social History Tobacco Use Types Packs/Day Years Used Date Smoking Tobacco: Never Assessed AUDIT-C Answer Date Recorded Frequency of Alcohol [...] Associated Diagnosis Comments BACTERIAL CULTURE, URINE Routine 06/13/2019 13:36 EDT documented in this encounter Results * BACTERIAL CULTURE, URINE (06/13/2019 13:36 EDT) USUAL UROGENITAL ARMIN - [facility] 06/15/2019 11:08 EDT [facility] CitrateConcentration >100,000 CFU/ML 06/03 11:08 EDT [facility] 06/13/2019 13:3 6 EDT 06/13/2019 13:57 EDT Comment:VOID Flynn Smith MD MICROBIOLOGY - GENER AL ORDERABLES [facility] documented in this encounter Visit Diagnoses Not on filedocumented in this encounter Care Teams Airplane Fueler Relationship Specialty Start Date End Date Jose Hillman MD PCP - General 04/02/09 07/06/19 Georgie Stewart, CHIEF CLERK SHELTER [address] [place] [phone] PCP - General 07/07/19 documented as of this encounter
--- OUTSIDE RECORDS SUMMARY | 2024-03-19 06:25 | XMS_ITS | Encounter Summary ---
Author Organization [facility] Address [address] [place] [address] Care Team Providers Care Assistant Front Office Manager Name Role Phone Jose Hillman MD Primary Care Provider Georgie Brennan APRN Primary Care Provider + Encounter Details Date Type Department Care Team (Late st Contact Info) Description 06/19/2019 Results Only Imaging [facility] - [facility] Radiology Results [address] [place], [place] [id number] Niranjan Oliver MD [address] [place] [address] Social History Tobacco Use Types Packs/Day Years Used Date Smoking Tobacco: Never Assessed Sex and Gender Information Value Date Recorded Sex Assigned at Not on file Gender Identity Female 07/07/2019 11:20 EST Sexual Orientation Not on file documented as of this encounter Plan of Treatment Not on file documented as of this encounter Procedures Procedure Name Priority Date/Time Associated Diagnosis Comments US PELVIS TRANSVAGINAL COMPLETE 06/19/2019 9:32 EDT documented in this encounter Results * US PELVIS TRANSVAGINAL (06/19/2019 9:32 EDT) Anatomical Region Laterality Modality Pelvis Other 06/19/2019 9:29 EDT Narrative 06/19/2019 9:32 EDT ? EXAM: ULTRASOUND/TRANSVAGINAL - SOCIAL SERVICES AIDE ? EX. D/ (0855) ? CLINICAL INFORMATION: ? Persitent VB ? TRANSVAGINAL - SOCIAL SERVICES AIDE ? Signs and Symptoms/Comments: ??Persitent VB ? Comparison: None available ? Technique: Pelvic ultrasound was performed. Color Doppler imaging was ? also utilized. Transvaginal scanning was performed. ? FINDINGS: ? Uterus: ? [...] fluid. ? IMPRESSION: ? PAGE 1 ? Signed Report ? (CONTINUED) ? Thickened, heterogeneous endometrium measures 20.7 mm.. ? REPORT SIGNED IN OTHER VENDOR SYSTEM 06/19/2019 ?Reported By: David Nguyen MD ? CC: Niranjan Oliver MD ? Transcribed Date/Time: 06/19/2019 (09) ? Structural Steel Painter: ? Printed Date/Time: 06/19/2019 (931) ? PAGE 2 ? Signed Report ? Procedure Note David Nguyen E - 07/12/2019 EXAM: ULTRASOUND/TRANSVAGINAL - SOCIAL SERVICES AIDE EX. D/ (0855) CLINICAL INFORMATION: Persitent VB TRANSVAGINAL - SOCIAL SERVICES AIDE Signs and Symptoms/Comments: Persitent VB Comparison: None available Technique: Pelvic ultrasound was performed. Color Doppler imagingwas also utilized. Transvaginal scanning was performed. FINDINGS: Uterus: Orientation: Anteverted Size: 10.4 cm x 6.1 cm x 7.8 cm Findings: None. Cervix: Normal. Endometrium: Echotexture: Heterogeneous. Thickness: 22.7 mm premenopausal (per patient) Ovaries: Right ovary: Size: 2.3 cm x 2.1 cm x 1.9 cm. Volume : 4.8 cc. Doppler flow: Color Doppler flow is grossly present, however waveforms were not assessed. Findings: None. Left ovary: Size: 2.4 cm x 1.9 cm x 1.5 cm. Volume : 3.6 cc. Doppler flow: Color Doppler flow is grossly present, however waveforms were not assessed. Findings: None. Cul-de-sac: No free fluid. IMPRESSION: PAGE 1 Signed Report (CONTINUED) Thickened, heterogeneous endometrium measures 20.7 mm.. REPORT SIGNED IN OTHER VENDOR SYSTEM 06/19/2019 Reported By: David Nguyen MD CC: Niranjan Oliver MD Transcribed Date/Time: 06/19/2019 (78) Structural Steel Painter: Printed Date/Time: 06/19/2019 (4791) PAGE 2 Signed Report Niranjan Oliver MD IMG US OB ORDERA BLES documented in this encounter Visit Diagnoses Not on filedocumented in this encounter Care Teams Assistant Front Office Manager Relationship Specialty Start Date End Date Jose Hillman MD PCP - General 04/02/09 07/06/19 Georgie Stewart, HAT AND CAP SEWER [address] [facility] [place] [phone] PCP - General 07/07/19 documented as of this encounter
--- OUTSIDE RECORDS SUMMARY | 2024-03-19 06:25 | XMS_ITS | Encounter Summary ---
Author Organization [facility] Address [address] [place] [address] Care Team Providers Care Civil Engineering Technician Name Role Phone Jose Hillman MD Primary Care Provider Unav ailable Encounter Details Date Type Department Care Team (Latest Contact Info) Description 05/19/2019 11:21 EDT - 05/19/2019 23:59 EDT Hospital Encounter [facility] [address] [place] [address] Unknown, Provider, Discharge Disposition: Home or Self Care Social History Tobacco Use Types Packs/Day Years Used Date Smoking Tobacco: Never Assessed Sex and Gender Information Value Date Recorded Sex Assigned at Not on file Gender Identity Female 07/07/2019 11:20 EST Sexual Orientation Not on file documented as of this encounter Discharge Disposition Disposition Code Departure Means Destination Home or Self [facility]itentiary documented in this encounter Plan of Treatment Not on file documented as of this encounter Visit Diagnoses Not on filedocumented in this encounter Care Teams Civil Engineering Technician Relationship Specialty Start Date End Date Jose Hillman MD PCP - General 04/02/09 07/06/19 documented as of this encounter
--- OUTSIDE RECORDS SUMMARY | 2024-03-19 06:25 | XMS_ITS | Encounter Summary ---
Author Organization [facility] Address [address] [place] [address] Care Team Providers Care Quality Assurance Monitor Body Name Role Phone Jose Hillman MD Primary Care Provider Georgie Brennan APRN Primary Care Provider + Encounter Details Date Type Department Care Team (Late st Contact Info) Description 06/13/[address] [facility] [place] [address] [place] [address] Flynn Smith MD [address] [place] [address] Social History Tobacco Use Types Packs/Day Years Used Date Smoking Tobacco: Never Assessed Sex and Gender Information Value Date Recorded Sex Assigned at Not on file Gender Identity Female 07/07/2019 11:20 EST Sexual Orientation Not on file documented as of this encounter Plan of Treatment Not on file documented as of this encounter Procedures Procedure Name Priority Date/Time Associated Diagnosis Comments CT ABDOMEN PELVIS W WO CONTRAST 06/13/2019 15:14 EDT documented in this encounter Results * CT ABDOMEN PELVIS W WO CONTRAST (06/13/2019 15:14 EDT) Anatomical Region Laterality Modality Other 06/13/2019 15:1 0 EDT Narrative 06/13/2019 15:14 EDT ? EXAM: CAT SCAN/ABDOMEN PELVIS W/WO CONTRA EX. D/ (1454) ? CLINICAL INFORMATION: ? INDICATION: Question bladder infection.. ? COMPARISON: None. ? TECHNIQUE: Noncontrast and contrast-enhanced CT scan of the abdomen ? and pelvis was performed utilizing nonionic IV contrast. 100 mL of ? Omnipaque 350 was utilized. ? FINDINGS: ? The lung bases are clear. There are innumerable low-density lesions ? scattered throughout the liver. A few are consistent with cysts. Most ? are too small to accurately characterize and indeterminate. ? Nonemergent follow-up evaluation with MRI of the liver is ? recommended. ? The gallbladder, pancreas, spleen and adrenal glands are normal. The ? kidneys, ureters and urinary bladder have normal appearances. ? The uterus and adnexa are unremarkable. The stomach, small bowel and ? colon are unremarkable. No appendicitis. ? No fracture or suspicious bone lesion is identified. ? No pathologically enlarged lymph nodes, ascites or other inflammatory ? abnormality is seen. ? IMPRESSION: ? 1. Hepatic cysts and indeterminate low-density hepatic lesions. ? Nonemergent follow-up evaluation with MRI of the liver is ? recommended. ? 2. Unremarkable kidneys, ureter and urinary bladder. ? This report has been flagged for a noncritical result requiring ? follow-up on the [email or web address] findings application, to be tracked by ? the [employer] tracking system. ? REPORT SIGNED IN OTHER VENDOR SYSTEM 06/13/2019 ?Reported By: Lexx Arias MD ? CC: ? Transcribed Date/Time: 06/13/2019 (1513) ? Financial Systems Analyst: ? Printed Date/Time: 06/13/2019 (1513) ? PAGE 1 ? Signed Report ? Procedure Note Lexx Arias MD - 07/12/2019 EXAM: CAT SCAN/ABDOMEN PELVIS W/WO CONTRA EX. D/ (1236) CLINICAL INFORMATION: INDICATION: Question bladder infection.. COMPARISON: None. TECHNIQUE: Noncontrast and contrast-enhanced CT scan of the abdomen and pelvis was performed utilizing nonionic IV contrast. 100 mL of Omnipaque 350 was utilized. FINDINGS: The lung bases are clear. There are innumerable low-density lesions scattered throughout the liver. A few are consistent with cysts.Most are too small to accurately characterize and indeterminate. Nonemergent follow-up evaluation with MRI of the liver is recommended. The gallbladder, pancreas, spleen and adrenal glands are normal.The kidneys, ureters and urinary bladder have normal appearances. The uterus and adnexa are unremarkable. The stomach, small boweland colon are unremarkable. No appendicitis. No fracture or suspicious bone lesion is identified. No pathologically enlarged lymph nodes, ascites or otherinflammatory abnormality is seen. IMPRESSION: 1. Hepatic cysts and indeterminate low-density hepatic lesions. Nonemergent follow-up evaluation with MRI of the liver is recommended. 2. Unremarkable kidneys, ureter and urinary bladder. This report has been flagged for a noncritical result requiring follow-up on the [email or web address] PACS findings application, to be tracked by the [facility] tracking system. REPORT SIGNED IN OTHER VENDOR SYSTEM 06/13/2019 Reported By: Lexx Arias MD CC: Transcribed Date/Time: 06/13/2019 (1513) Financial Systems Analyst: Printed Date/Time: 06/13/2019 (1513) PAGE 1 Signed Report Flynn Smith MD IMG CT ORDERABLES documented in this encounter Visit Diagnoses Not on filedocumented in this encounter Care Teams Quality Assurance Monitor Body Relationship Specialty Start Date End Date Jose Hillman MD PCP - General 04/02/09 07/06/19 Georgie Stewart APRN [address] [place] [address] PCP - General 07/07/19 documented as of this encounter
--- OUTSIDE RECORDS SUMMARY | 2024-03-19 06:25 | XMS_ITS | Encounter Summary ---
Author Organization [facility] Address [address] [place] [address] Care Team Providers Care Bioinformatics Programmer Name Role Phone Jose Hillman MD Primary Care Provider Unav ailable Encounter Details Date Type Department Care Team (Late st Contact Info) Description 08/11/2010 Results Only [facility] Laboratory Services - [facility] ([facility] [address] [place] [id number] Abner Royal MD Social History Tobacco Use Types Packs/Day [...] Priority Date/Time Associated Diagnosis Comments CYTOPATHOLOGY Routine 08/11/2010 0:00 EST documented in this encounter Results * CYTOPATHOLOGY (08/11/2010 0:00 EST) Pathology Report: CYTOPATHOLOGY REPORT ? Reports generated via electronic interface contain original data; ? however they are lacking the format of the original report. ? Caution should be taken when reading/interpreti ng unformatted reports. ? Name: ? MARÍA ELENA FORD ? Accession #: ? [id number] ? : ? 1985 (Age: 25) ??F ?Collect Date: ? 08/11/2010 ? Location: ? [facility] ? Receive Date: ? 08/12/2010 ? Provider: ?ABNER ROYAL MD ? Copy to: ? Specimen/Source: ?Pap Test, Cervix/Endocervix, ThinPrep Imaging System ? with manual evaluation ? Last Menstrual Period: ? Menstrual/Pregnanc y Status: ? Amenorrhea: x 5 months ? Hormonal/Contracep tive Status: ? Yes: BTF 09 ? SPECIMEN ADEQUACY ? Satisfactory for Evaluation ? - transformation zone component present ? - scant squamous epithelial component ? GENERAL CATEGORIZATION ? Negative for Intraepithelial Lesion or Malignancy ? Document reviewed and electronically signed by: ? Kylie Hofflogg, CT(ASCP) ? Report Date: ??08/17/2010 09:50 ? End of Report ? [facility] 08/11/2010 08/12/2010 Abner Royal MD PATHOLOGY ORDERABLES [facility] [address] [place] [address] documented in this encounter Visit Diagnoses Not on filedocumented in this encounter Care Teams Bioinformatics Programmer Relationship Specialty Start Date End Date Jose Hillman MD PCP - General 04/02/09 07/06/19 documented as of this encounter
--- OUTSIDE RECORDS SUMMARY | 2024-03-19 06:25 | XMS_ITS | Encounter Summary ---
Author Organization [facility] Address [address] [place] [address] Care Team Providers Care Paperhanger Name Role Phone Aric Hurley MD Primary Care Provider Un available Encounter Details Date Type Department Care Team (Late st Contact Info) Description 02/01/2009 Orders Only [facility] Adult Primary Care - [address] [phone] Unknown, Provider, Social History Tobacco Use Types [...] Associated Diagnosis Comments RUBELLA IGG ANTIBODY Routine 02/01/2009 7:42 EDT HEPATITIS B SURFACE ANTIGEN Routine 02/01/2009 7:42 EDT SYPHILIS SERO (RPR) Routine 02/01/2009 7 :42 EDT HIV 1/2 ANTIGEN AND ANTIBODY, 4TH GENERATION Routine 02/01/2009 7:42 EDT documented in this encounter Results * HIV ANTIBODY (02/01/2009 7:42 EDT) HIV 1/2 Antibody Negative Reference Range: ??Negative [facility] Blood specimen (specimen) 02/01/2009 7:42 EDT 02/01/2009 22:23 EDT Provider Unknown IMMUNOLOGY AND SEROL OGY ORDERABLES Performing Organization Address [facility] Co de Phone Number [facility] [address] [place] [address] * SYPHILIS SERO (RPR) (02/01/2009 7:42 EDT) Pathologist [facility] Syphilis Sero (RPR) NONREACT. NR Dils [facility] Blood specimen (specimen) 02/01/2009 7:42 EDT 02/01/2009 22:23 EDT Provider Unknown IMMUNOLOGY AND SEROL OGY ORDERABLES Performing Organization Address [facility] Phone Number [facility] [address] [place] [address] * RUBELLA IGG ANTIBODY (02/01/2009 7:42 EDT) Pathologist [facility] Rubella IgG Ab Antibody detected Assayed utilizing the DPC Immulite 2500. Values may vary with other methods. [facility] Blood specimen (specimen) 02/01/2009 7:42 EDT 02/01/2009 22:23 EDT Provider Unknown CHEMISTRY & BLOOD GA S ORDERABLES Performing Organization Address [facility] Phone Number [facility] [address] [place] [address] * HEPATITS B SURFACE ANTIGEN (02/01/2009 7:42 EDT) Pathologist [facility] Hepatitis B Surface Ag Negative Reference Range: ??Negative [facility] Blood specimen (specimen) 02/01/2009 7:42 EDT 02/01/2009 22:23 EDT Provider Unknown CHEMISTRY & BLOOD GA S ORDERABLES Performing Organization Address [facility] Co de Phone Number [facility] [address] [place] [address] documented in this encounter Visit Diagnoses Not on filedocumented in this encounter Care Teams Paperhanger Relationship Specialty Start Date End Date Aric Hurley MD PCP - General 01/13/09 04/01/09 documented as of this encounter
--- OUTSIDE RECORDS SUMMARY | 2024-03-19 06:25 | XMS_ITS | Encounter Summary ---
Author Organization [facility] Address [address] [place] [address] Care Team Providers Care Litigation Specialist Name Role Phone Jose Hillman MD Primary Care Provider Georgie Brennan APRN Primary Care Provider + Encounter Details Date Type Department Care Team (Late st Contact Info) Description 06/19/[address] [facility] Lab - Main [address] [address] Zoran Lubin MD [address] [place] [phone] Social History Tobacco Use Types Packs/Day Years Used Date Smoking Tobacco: Never Assessed Sex and Gender Information Value Date Recorded Sex Assigned at Not on file Gender Identity Female 07/07/2019 11:20 EST Sexual Orientation Not on file documented as of this encounter Plan of Treatment Not on file documented as of this encounter Procedures Procedure Name Priority Date/Time Associated Diagnosis Comments [facility] Routine 06/19/2019 6: 50 EDT COMPLETE BLOOD COUNT WITH DIFFERENTIAL (AUTO) Routine 06/19/2019 6:50 EDT C REACTIVE PROTEIN Routine 06/19/2019 6: 50 EDT COMPREHENSIVE METABOLIC PANEL (CMP) Routine 06/19/2019 6:50 EDT documented in this encounter Results * C REACTIVE PROTEIN (06/19/2019 6:50 EDT) [facility] C-Reactive Protein 7.7 <10.0 mg/L 06/19/2019 7:15 [facility] 06/19/2019 6:50 EDT 06/19/2019 6:59 EDT Zoran Lubin MD CHEMISTRY & BLOOD G ORDERABLES [facility] * (ABNORMAL) COMPREHENSIVE METABOLIC PANEL (CMP) (06/19/2019 6:50 EDT) [facility] Albumin % 4.2 3.4 - 4.9 g/dL 06/19/2019 7:15 [facility] ALKALINE PHOSPHATASE - [facility] 62 38 - 126 U/L 06/19/2019 7:15 [facility] BILIRUBIN TOTAL 0.5 0.2 - 1.3 mg/dL 06/19/2019 7:15 [facility] BUN - [facility] 12 10 - 26 mg/dL 06/19/2019 7:15 [facility] CALCIUM - [facility] 9.4 8.5 - 10.5 mg/dL 06/19/2019 7:15 [facility] Chloride 108 96 - 110 mmol/L 06/19/2019 7:15 [facility] CO2 Total 19(L) 22 - 32 mEq/L 06/19/2019 7:15 [facility] CREATININE 0.75 0.52 - 1.04 mg/dL 06/19/2019 7:15 [facility] eGFR >60 06/19/2019 7:15 [facility] Comment: Chronic renal impairment is defined as GFR <60 Multiply result by 1.210 for patients. eGFR calculated using the IDMS-traceable MDRD Study Equation. ??(effective 07/06/2014) Anion Gap 14 0 - 18 06/19/2019 7:15 [facility] GLUCOSE - [facility] 114(H) 70 - 100 mg/dL 06/19/2019 7:15 [facility] Potassium 4.0 3.5 - 5.0 mEq/L 06/19/2019 7:15 EDT [facility] Sodium 141 136 - 145 mEq/L 06/19/2019 7:15 EDT [facility] TOTAL PROTEIN - [facility] 7.4 6.2 - 8.2 gm/dL 06/19/2019 7:15 EDT [facility] SGOT/AST - [facility] 23 14 - 36 U/L 06/19/2019 7:15 EDT [facility] SGPT/ALT - [facility] 38 9 - 52 U/L 9 7:15 EDT [facility] 06/19/2019 6:50 EDT 06/19/2019 6:59 EDT Zoran Lubin MD CHEMISTRY & BLOOD G ORDERABLES Performing Organization Address City/[facility]/ZIP Co de Phone Number [facility] * [facility] (06/19/2019 6:50 EDT) [facility] S[facility]EN - [facility] NEG 06/19/2019 7:13 EDT [facility] 06/19/2019 6:50 EDT 06/19/2019 6:59 EDT Zoran Lubin MD HEMATOLOGY & PF4 OR DERABLES [facility] * COMPLETE BLOOD COUNT WITH DIFFERENTIAL (AUTO) (06/19/2019 6:50 EDT) ABSOLUTE NEUTROPHIL COUN - [facility] 4.7 2.2 - 8.85 10e3/uL 06/19/2019 7:02 EDT [facility] BASO # - [facility] 0.05 0.01 - 0.11 10e/uL 06/19/2019 7:02 EDT [facility] BASO % - [facility] 1 0 - 2 % 06/19/2019 7:02 EDT [facility] EOS # - [facility] 0.27 0.03 - 0.61 10e3/ul 06/19/2019 7:02 [facility] EOS % - [facility] 3 0 - 5 % 06/19/2019 7:02 [facility] GRAN % - [facility] 59.6 40 - 80 % 06/19/2019 7:02 [facility] HEMATOCRIT - [facility] 38.7 34.9 - 44.4 % 06/19/2019 7:02 [facility] HEMOGLOBIN - CV 12.9 11.6 - 15.2 g/dl 06/19/2019 7:02 [facility] IG# - [facility] 0.04 0 - 0.7 10e3/uL 06/19/2019 7:02 [facility] IG% - [facility] 0.5 0 - 0.9 % 06/19/2019 7:02 [facility] LYMPH # - [facility] 2.3 1.09 - 3.3 10e3/ul 06/19/2019 7:02 [facility] LYMPH% - [facility] 28.5 20 - 40 % 06/19/2019 7:02 [facility] MEAN CORPUSCULAR HGB - CV 30.4 26.7 - 33.3 pg 06/19/2019 7:02 [facility] MEAN CORPUSCULAR HGB CONC - [facility] 33.3 32.1 - 35.9 g/dL 06/19/2019 7:02 [facility] MEAN CELL VOLUME - [facility] 91.1 81 - 98 fl 06/19/2019 7:02 [facility] MONO # - [facility] 0.6 0.1 - 0.8 10e3/uL 06/19/2019 7:02 [facility] MONO% - [facility] 7.4 0 - 12 % 06/19/2019 7:02 [facility] PLATELET COUNT 314 141 - 377 10e3/ul 06/19/2019 7:02 [facility] RED BLOOD COUNT - CV 4.25 3.86 - 5.04 10e3/ul 06/19/2019 7:02 [facility] RED CELL DISTRI WIDTH - [facility] 12.1 <14.7 % 06/19/2019 7:02 EDT [facility] WHITE BLOOD COUNT - [facility] 8.0 4.0 - 12.4 10e3/ul 06/19/2019 7:02 EDT [facility] 06/19/2019 6:50 EDT 06/19/2019 6:59 EDT Zoran Davis Lubin MD HEMATOLOGY & PF4 OR DERABLES [facility] documented in this encounter Visit Diagnoses Not on filedocumented in this encounter Care Teams Litigation Specialist Relationship Specialty Start Date End Date Jose Hillman MD PCP - General 04/02/09 07/06/19 Georgie Stewart, FUR DRUMMER [address] [facility] [place] [id number] PCP - General 07/07/19 documented as of this encounter
--- OUTSIDE RECORDS SUMMARY | 2024-03-19 06:25 | XMS_ITS | Encounter Summary ---
Author Organization [facility] Address [address] [place] [address] Care Team Providers Care Embedded Linux Engineer Name Role Phone Aric Hurley MD Primary Care Provider Un available Encounter Details Date Type Department Care Team (Late st Contact Info) Description 09/08/2008 Before PRISM Converted Visit (Maple) [facility] Adult Primary Care - [address] [phone] Unknown, Provider, Social History Tobacco Use Types Packs/Day Years Used Date Smoking Tobacco: Never Assessed Sex and Gender Information Value Date Recorded Sex Assigned at Not on file Gender Identity Female 07/07/2019 11:20 EST Sexual Orientation Not on file documented as of this encounter Plan of Treatment Not on file documented as of this encounter Procedures Procedure Name Priority Date/Time Associated Diagnosis Comments PROLACTIN Routine 09/08/2008 13:46 EST LH Routine 09/08/2008 13:46 EST FSH Routine 09/08/2008 13:46 EST documented in this encounter Results * PROLACTIN (09/08/2008 13:46 EST) Prolactin 3.1 ng/ml [facility] Comment: Non-: 2.8-29.2 : 9.7-208.5 Post Menopausal: 1.8-20.3 09/08/2008 13:4 6 EST 09/08/2008 22:23 EST Provider Unknown CHEMISTRY & BLOOD GA S ORDERABLES Performing Organization Address City/[facility] Co de Phone Number [facility] [address] [place] [address] * FSH (09/08/2008 13:46 EST) FSH 8.8 mIU/ml [facility] Comment: Follicular: 2-11 Mid-Cycle Peak: 3.4-35 Luteal: 1-9 Postmenopausal: 25-120 09/08/2008 13:4 6 EST 09/08/2008 22:23 EST Provider Unknown CHEMISTRY & BLOOD GA S ORDERABLES Performing Organization Address [facility] Co de Phone Number [facility] [address] [place] [address] * LH (09/08/2008 13:46 EST) LH 15.8 mIU/ml [facility] Comment: Follicular: 1-18 Mid-Cycle Peak: 15-80 Luteal: 0.5-18 Postmenopausal: 12-55 09/08/2008 13:4 6 EST 09/08/2008 22:23 EST Provider Unknown CHEMISTRY & BLOOD GA S ORDERABLES Performing Organization Address City/[facility] Co de Phone Number [facility] [address] [place] [address] documented in this encounter Visit Diagnoses Not on filedocumented in this encounter Care Teams Embedded Linux Engineer Relationship Specialty Start Date End Date Aric Hurley MD PCP - General 01/13/09 04/01/09 documented as of this encounter
--- OUTSIDE RECORDS SUMMARY | 2024-03-19 06:25 | XMS_ITS | Encounter Summary ---
Author Organization [facility] Address [address] [place] [address] Care Team Providers Care Tank Wagon Driver Name Role Phone Jose Hillman MD Primary Care Provider Unav ailable Encounter Details Date Type Department Care Team (Late st Contact Info) Description 09/30/2018 Historical Results Only [facility] Radiology Results [address] [place] [address] MD [address] [place] [address], [address] [place] [address] Social History Tobacco Use Types [...] Name Priority Date/Time Associated Diagnosis Comments US BREAST LIMITED UNILATERAL 09/30/2018 11:55 EST MA BREAST DIAGNOSTIC JESUS RIGHT 09/30/2018 11:55 EST documented in this encounter Results * US BREAST LIMITED UNILATERAL (09/30/2018 11:55 EST) Anatomical Region Laterality Modality Breast Other 09/30/2018 11:5 5 EST Narrative 09/30/2018 11:55 EST ? EXAM: ULTRASOUND/UNILATERAL BREAST LIMITE EX. D/ (0926) ? CLINICAL INFORMATION: ? RIGHT BREAST SKIN LESION ??N64.9 ? UNILATERAL BREAST LIMITED, MAMMO RIGHT DX W JESUS ? SIGNS AND SYMPTOMS/COMMENTS: ??RIGHT BREAST SKIN LESION ??N64.9 ? COMPARISONS: None. This is a baseline examination. ? FINDINGS: ? RIGHT BREAST MAMMOGRAPHY: Full field digital whole breast 2D (C-view) ? and 3D ML and spot compression CC and MLO views of the right breast ? were obtained. CAD technology was utilized. ? The breast tissue is of scattered density. ??A triangular marker was ? placed over the lower right breast to denote the area of palpable ? concern. There is a small asymmetry that localizes to the skin in the ? area of palpable concern. No architectural distortion or suspicious ? microcalcification was detected. Note is made of a peripherally ? calcified oval cyst in the outer upper right breast. ? RIGHT BREAST ULTRASOUND: The lower right breast was scanned targeting ? the area of clinical concern at 7 o'clock, 8 cm in the nipple. The ? outer right breast was also scanned at the location of the ? mammographic or cyst. The retroareolar breast was scanned ? circumferentially. ? At the 7 o'clock position, 8 cm the nipple, there is an irregular ? hypoechoic lesion completely within the dermis that communicates with ? the skin. The surrounding skin is slightly thickened and hyperemic. ? The lesion measures 7 mm in maximal dimension. Findings are ? consistent with a epidermal inclusion cyst or sebaceous cyst. ? At the 9 o'clock position, 6 cm from the nipple, there is a 1.0-cm ? cyst with a small amount of internal debris. This corresponds with ? the mammographic peripherally calcified oil cyst. ? The retroareolar right breast was scanned circumferentially. ??No ? suspicious sonographic abnormality was detected. ? Please note that the contralateral left breast was not imaged at the ? request of the ordering provider. ? RIGHT BREAST IMPRESSION: Benign. ? 1. A 7-mm hypoechoic lesion completely within the dermis that ? communicates with the skin at the site of palpable concern in the ? lower right breast is compatible with an epidermal inclusion cyst or ? sebaceous cyst. The adjacent skin appears slightly inflamed. ? Recommend clinical follow-up. ? 2. A benign oil cyst was incidentally noted in the outer right ? breast. ? PAGE 1 ? Signed Report ? (CONTINUED) ? 3. The patient describes right breast nipple discharge. Upon further ? questioning, she was unable to completely characterize this ? discharge. She was unable to determine if is bilateral or ? spontaneous. She was also unable to characterize the number of duct ? orifices from which the discharge arose. She believes the discharge ? was clear to slightly milky and denies bloody tinged discharge. No ? mammographic or sonographic abnormality was identified to explain the ? patient's discharge. Clinical follow-up is recommended. If there are ? features of pathologic nipple discharge, MRI may be indicated. ? RECOMMENDATION: Recommend annual bilateral screening mammography to ? begin at age 40. Recommend clinical follow-up for the inflamed ? skin-based lesion described. Also, recommend clinical follow-up to ? further characterize the patient's reported nipple discharge. If ? there are features of pathologic discharge, MRI may be indicated. ? FINAL ASSESSMENT: ??DIAGNOSTIC RIGHT BREAST MAMMOGRAM/ULTRASOUND - ? BI-RADS Category 2 - Benign findings. ? Dr David Nguyen discussed the findings and recommendations directly ? with the patient at the time of the examination.. ? These results will be communicated to your patient via a lay letter ? from Radiology. ??If any additional imaging is needed we will contact ? your patient directly. ? REPORT SIGNED IN OTHER VENDOR SYSTEM 09/30/2018 ?Reported By: David Nguyen MD ? CC: ? Transcribed Date/Time: 09/30/2018 (1155) ? Materials Scientist: ? Printed Date/Time: 02/23/2019 (1217) ? PAGE 2 ? Signed Report ? Procedure Note David Nguyen MD - 07/10/2019 EXAM: ULTRASOUND/UNILATERAL BREAST LIMITE EX. D/ (0926) CLINICAL INFORMATION: RIGHT BREAST SKIN LESION N64.9 UNILATERAL BREAST LIMITED, MAMMO RIGHT DX W JESUS SIGNS AND SYMPTOMS/COMMENTS: RIGHT BREAST SKIN LESION N64.9 COMPARISONS: None. This is a baseline examination. FINDINGS: RIGHT BREAST MAMMOGRAPHY: Full field digital whole breast 2D(C-view) and 3D ML and spot compression CC and MLO views of the right breast were obtained. CAD technology was utilized. The breast tissue is of scattered density. A triangular marker was placed over the lower right breast to denote the area of palpable concern. There is a small asymmetry that localizes to the skin inthe area of palpable concern. No architectural distortion or suspicious microcalcification was detected. Note is made of a peripherally calcified oval cyst in the outer upper right breast. RIGHT BREAST ULTRASOUND: The lower right breast was scannedtargeting the area of clinical concern at 7 o'clock, 8 cm in the nipple. The outer right breast was also scanned at the location of the mammographic or cyst. The retroareolar breast was scanned circumferentially. At the 7 o'clock position, 8 cm the nipple, there is an irregular hypoechoic lesion completely within the dermis that communicateswith the skin. The surrounding skin is slightly thickened and hyperemic. The lesion measures 7 mm in maximal dimension. Findings are consistent with a epidermal inclusion cyst or sebaceous cyst. At the 9 o'clock position, 6 cm from the nipple, there is a 1.0-cm cyst with a small amount of internal debris. This corresponds with the mammographic peripherally calcified oil cyst. The retroareolar right breast was scanned circumferentially. No suspicious sonographic abnormality was detected. Please note that the contralateral left breast was not imaged atthe request of the ordering provider. RIGHT BREAST IMPRESSION: Benign. 1. A 7-mm hypoechoic lesion completely within the dermis that communicates with the skin at the site of palpable concern in the lower right breast is compatible with an epidermal inclusion cystor sebaceous cyst. The adjacent skin appears slightly inflamed. Recommend clinical follow-up. 2. A benign oil cyst was incidentally noted in the outer right breast. PAGE 1 Signed Report (CONTINUED) 3. The patient describes right breast nipple discharge. Uponfurther questioning, she was unable to completely characterize this discharge. She was unable to determine if is bilateral or spontaneous. She was also unable to characterize the number of duct orifices from which the discharge arose. She believes the discharge was clear to slightly milky and denies bloody tinged discharge. No mammographic or sonographic abnormality was identified to explainthe patient's discharge. Clinical follow-up is recommended. If thereare features of pathologic nipple discharge, MRI may be indicated. RECOMMENDATION: Recommend annual bilateral screening mammography to begin at age 40. Recommend clinical follow-up for the inflamed skin-based lesion described. Also, recommend clinical follow-up to further characterize the patient's reported nipple discharge. If there are features of pathologic discharge, MRI may be indicated. FINAL ASSESSMENT: DIAGNOSTIC RIGHT BREAST MAMMOGRAM/ULTRASOUND - BI-RADS Category 2 - Benign findings. Dr David Nguyen discussed the findings and recommendationsdirectly with the patient at the time of the examination.. These results will be communicated to your patient via a lay letter from Radiology. If any additional imaging is needed we willcontact your patient directly. REPORT SIGNED IN OTHER VENDOR SYSTEM 09/30/2018 Reported By: David Nguyen MD CC: Transcribed Date/Time: 09/30/2018 (6830) Materials Scientist: Printed Date/Time: 02/23/2019 (8991) [address] MD [facility] ORDERABLES * MA BREAST DIAGNOSTIC JESUS RIGHT (09/30/2018 11:55 EST) Anatomical Region Laterality Modality Breast Right Other 09/30/2018 11:5 5 EST Narrative 09/30/2018 11:55 EST ? EXAM: MAMMOGRAM/MAMMO RIGHT DX W JESUS ? EX. D/ (0909) ? CLINICAL INFORMATION: ? RIGHT BREAST SKIN LESION ??N64.9 ? UNILATERAL BREAST LIMITED, MAMMO RIGHT DX W JESUS ? SIGNS AND SYMPTOMS/COMMENTS: ??RIGHT BREAST SKIN LESION ??N64.9 ? COMPARISONS: None. This is a baseline examination. ? FINDINGS: ? RIGHT BREAST MAMMOGRAPHY: Full field digital whole breast 2D (C-view) ? and 3D ML and spot compression CC and MLO views of the right breast ? were obtained. CAD technology was utilized. ? The breast tissue is of scattered density. ??A triangular marker was ? placed over the lower right breast to denote the area of palpable ? concern. There is a small asymmetry that localizes to the skin in the ? area of palpable concern. No architectural distortion or suspicious ? microcalcification was detected. Note is made of a peripherally ? calcified oval cyst in the outer upper right breast. ? RIGHT BREAST ULTRASOUND: The lower right breast was scanned targeting ? the area of clinical concern at 7 o'clock, 8 cm in the nipple. The ? outer right breast was also scanned at the location of the ? mammographic or cyst. The retroareolar breast was scanned ? circumferentially. ? At the 7 o'clock position, 8 cm the nipple, there is an irregular ? hypoechoic lesion completely within the dermis that communicates with ? the skin. The surrounding skin is slightly thickened and hyperemic. ? The lesion measures 7 mm in maximal dimension. Findings are ? consistent with a epidermal inclusion cyst or sebaceous cyst. ? At the 9 o'clock position, 6 cm from the nipple, there is a 1.0-cm ? cyst with a small amount of internal debris. This corresponds with ? the mammographic peripherally calcified oil cyst. ? The retroareolar right breast was scanned circumferentially. ??No ? suspicious sonographic abnormality was detected. ? Please note that the contralateral left breast was not imaged at the ? request of the ordering provider. ? RIGHT BREAST IMPRESSION: Benign. ? 1. A 7-mm hypoechoic lesion completely within the dermis that ? communicates with the skin at the site of palpable concern in the ? lower right breast is compatible with an epidermal inclusion cyst or ? sebaceous cyst. The adjacent skin appears slightly inflamed. ? Recommend clinical follow-up. ? 2. A benign oil cyst was incidentally noted in the outer right ? breast. ? PAGE 1 ? Signed Report ? (CONTINUED) ? 3. The patient describes right breast nipple discharge. Upon further ? questioning, she was unable to completely characterize this ? discharge. She was unable to determine if is bilateral or ? spontaneous. She was also unable to characterize the number of duct ? orifices from which the discharge arose. She believes the discharge ? was clear to slightly milky and denies bloody tinged discharge. No ? mammographic or sonographic abnormality was identified to explain the ? patient's discharge. Clinical follow-up is recommended. If there are ? features of pathologic nipple discharge, MRI may be indicated. ? RECOMMENDATION: Recommend annual bilateral screening mammography to ? begin at age 40. Recommend clinical follow-up for the inflamed ? skin-based lesion described. Also, recommend clinical follow-up to ? further characterize the patient's reported nipple discharge. If ? there are features of pathologic discharge, MRI may be indicated. ? FINAL ASSESSMENT: ??DIAGNOSTIC RIGHT BREAST MAMMOGRAM/ULTRASOUND - ? BI-RADS Category 2 - Benign findings. ? Dr David Nguyen discussed the findings and recommendations directly ? with the patient at the time of the examination.. ? These results will be communicated to your patient via a lay letter ? from Radiology. ??If any additional imaging is needed we will contact ? your patient directly. ? REPORT SIGNED IN OTHER VENDOR SYSTEM 09/30/2018 ?Reported By: David Nguyen MD ? CC: ? Transcribed Date/Time: 09/30/2018 (1155) ? Materials Scientist: ? Printed Date/Time: 02/23/2019 (1217) ? PAGE 2 ? Signed Report ? Procedure Note David Nguyen MD - 07/10/2019 EXAM: MAMMOGRAM/MAMMO RIGHT DX W JESUS EX. D/ (0909) CLINICAL INFORMATION: RIGHT BREAST SKIN LESION N64.9 UNILATERAL BREAST LIMITED, MAMMO RIGHT DX W JESUS SIGNS AND SYMPTOMS/COMMENTS: RIGHT BREAST SKIN LESION N64.9 COMPARISONS: None. This is a baseline examination. FINDINGS: RIGHT BREAST MAMMOGRAPHY: Full field digital whole breast 2D(C-view) and 3D ML and spot compression CC and MLO views of the right breast were obtained. CAD technology was utilized. The breast tissue is of scattered density. A triangular marker was placed over the lower right breast to denote the area of palpable concern. There is a small asymmetry that localizes to the skin inthe area of palpable concern. No architectural distortion or suspicious microcalcification was detected. Note is made of a peripherally calcified oval cyst in the outer upper right breast. RIGHT BREAST ULTRASOUND: The lower right breast was scannedtargeting the area of clinical concern at 7 o'clock, 8 cm in the nipple. The outer right breast was also scanned at the location of the mammographic or cyst. The retroareolar breast was scanned circumferentially. At the 7 o'clock position, 8 cm the nipple, there is an irregular hypoechoic lesion completely within the dermis that communicateswith the skin. The surrounding skin is slightly thickened and hyperemic. The lesion measures 7 mm in maximal dimension. Findings are consistent with a epidermal inclusion cyst or sebaceous cyst. At the 9 o'clock position, 6 cm from the nipple, there is a 1.0-cm cyst with a small amount of internal debris. This corresponds with the mammographic peripherally calcified oil cyst. The retroareolar right breast was scanned circumferentially. No suspicious sonographic abnormality was detected. Please note that the contralateral left breast was not imaged atthe request of the ordering provider. RIGHT BREAST IMPRESSION: Benign. 1. A 7-mm hypoechoic lesion completely within the dermis that communicates with the skin at the site of palpable concern in the lower right breast is compatible with an epidermal inclusion cystor sebaceous cyst. The adjacent skin appears slightly inflamed. Recommend clinical follow-up. 2. A benign oil cyst was incidentally noted in the outer right breast. PAGE 1 Signed Report (CONTINUED) 3. The patient describes right breast nipple discharge. Uponfurther questioning, she was unable to completely characterize this discharge. She was unable to determine if is bilateral or spontaneous. She was also unable to characterize the number of duct orifices from which the discharge arose. She believes the discharge was clear to slightly milky and denies bloody tinged discharge. No mammographic or sonographic abnormality was identified to explainthe patient's discharge. Clinical follow-up is recommended. If thereare features of pathologic nipple discharge, MRI may be indicated. RECOMMENDATION: Recommend annual bilateral screening mammography to begin at age 40. Recommend clinical follow-up for the inflamed skin-based lesion described. Also, recommend clinical follow-up to further characterize the patient's reported nipple discharge. If there are features of pathologic discharge, MRI may be indicated. FINAL ASSESSMENT: DIAGNOSTIC RIGHT BREAST MAMMOGRAM/ULTRASOUND - BI-RADS Category 2 - Benign findings. Dr David Nguyen discussed the findings and recommendationsdirectly with the patient at the time of the examination.. These results will be communicated to your patient via a lay letter from Radiology. If any additional imaging is needed we willcontact your patient directly. REPORT SIGNED IN OTHER VENDOR SYSTEM 09/30/2018 Reported By: David Nguyen MD CC: Transcribed Date/Time: 09/30/2018 (5786) Materials Scientist: Printed Date/Time: 02/23/2019 (8339) [address] MD IMG MAMMOGRAPHY [facility]LL[facility] documented in this encounter Visit Diagnoses Not on filedocumented in this encounter Care Teams Tank Wagon Driver Relationship Specialty Start Date End Date Jose Hillman MD PCP - General 04/02/09 07/06/19 documented as of this encounter
--- OUTSIDE RECORDS SUMMARY | 2024-03-19 06:25 | XMS_ITS | Encounter Summary ---
Author Organization [facility] Address [address] [place] [address] Care Team Providers Care Floor Covering Layer Name Role Phone Jose Hillman MD Primary Care Provider Georgie Brennan APRN Primary Care Provider + Encounter Details Date Type Department Care Team (Late st Contact Info) Description 06/13/2019 Results Only [facility] - Main [address] [address] Flynn Smith MD [address] [place] [phone] Social History Tobacco Use Types Packs/Day Years Used Date Smoking Tobacco: Never Assessed Sex and Gender Information Value Date Recorded Sex Assigned at Not on file Gender Identity Female 07/07/2019 11:20 EST Sexual Orientation Not on file documented as of this encounter Plan of Treatment Pending Results Name Type Priority Associated Diagnoses Date /Time UA, CHEMICAL AND SEDIMENT ANALYSIS (DIPSTICK AND MICROSCOPIC) Lab Routine 06/13/2019 13:30 EDT documented as of this encounter Procedures Procedure Name Priority Date/Time Associated Diagnosis [facility] Routine 06/13/2019 13:46 EDT COMPLETE BLOOD COUNT WITH DIFFERENTIAL (AUTO) Routine 06/13/2019 13:46 EDT URINE MICROSCOPIC Routine 06/13/2019 13: 30 EDT URINE CHEMICAL (DIP) & SEDIMENT (MICRO) WITHOUT REFLEX TO CULTURE Routine 06/13/2019 13:30 EDT documented in this encounter Results * (ABNORMAL) COMPLETE BLOOD COUNT WITH DIFFERENTIAL (AUTO) (06/13/2019 13:46 EDT) ABSOLUTE NEUTROPHIL COUN - [facility] 3.0 2.2 - 8.85 10e3/uL 06/13/2019 14:33 [facility] BASO # - [facility] 0.04 0.01 - 0.11 10e/uL 06/13/2019 14:33 [facility] BASO % - [facility] 1 0 - 2 % 06/13/2019 14:33 [facility] EOS # - [facility] 0.12 0.03 - 0.61 10e3/ul 06/13/2019 14:33 [facility] EOS % - [facility] 2 0 - 5 % 06/13/2019 14:33 [facility] GRAN % - [facility] 54.9 40 - 80 % 06/13/2019 14:33 [facility] HEMATOCRIT - [facility] 40.7 34.9 - 44.4 % 06/13/2019 14:33 [facility] HEMOGLOBIN - [facility] 13.7 11.6 - 15.2 g/dl 06/13/2019 14:33 [facility] IG# - [facility] 0.03 0 - 0.7 10e3/uL 06/13/2019 14:33 [facility] IG% - [facility] 0.5 0 - 0.9 % 06/13/2019 14:33 [facility] LYMPH # - [facility] 1.6 1.09 - 3.3 10e3/ul 06/13/2019 14:33 [facility] LYMPH% - [facility] 29.2 20 - 40 % 06/13/2019 14:33 [facility] MEAN CORPUSCULAR HGB - [facility] 30.6 26.7 - 33.3 pg 06/13/2019 14:33 [facility] MEAN CORPUSCULAR HGB CONC - [facility] 33.7 32.1 - 35.9 g/dL 06/13/2019 14:33 [facility] MEAN CELL VOLUME - [facility] 90.8 81 - 98 fl 06/13/2019 14:[address] [facility] MONO # - [facility] 0.7 0.1 - 0.8 10e3/uL 06/13/2019 14:[address] [facility] MONO% - [facility] 12.5(H) 0 - 12 % 06/13/2019 14:[address] [facility] PLATELET COUNT 243 141 - 377 10e3/ul 06/13/2019 14:[address] [facility] RED BLOOD COUNT - [facility] 4.48 3.86 - 5.04 10e3/ul 06/13/2019 14:[address] [facility] RED CELL DISTRI WIDTH - [facility] 12.0 <14.7 % 06/13/2019 14:[address] [facility] WHITE BLOOD COUNT - [facility] 5.5 4.0 - 12.4 10e3/ul 06/13/2019 14:[address] [facility] 06/13/2019 13:4 6 EDT 06/13/2019 13:49 EDT Flynn Smith MD HEMATOLOGY & PF4 ORD ERABLES [facility] * LIPASE SERPL-[facility] - [facility] (06/13/2019 13:46 EDT) LIPASE SERPL-[facility] 93 <251 U/L 06/13/2019 14:[address] [facility] 06/13/2019 13:4 6 EDT 06/13/2019 13:49 EDT Flynn Smith MD CHEMISTRY & BLOOD GA S ORDERABLES [facility] * URINE MICROSCOPIC (06/13/2019 13:30 EDT) URINE APPEARANCE - [facility] Cloudy CLEAR 06/13/2019 13:[address] [facility] URINE BACTERIA - [facility] FEW 06/13/2019 13:[address] [facility] URINE COLOR - [facility] Red YELLOW 2018 13:[address] [facility] Comment: Abnormal urine color may interfere with interpretation of the urinalysis reagent test strips. Urinalysis order has been reflexed to Urine Microscopic due to color interference. URINE RBC - [facility] TNTC rbc/hpf 06/13/20 13:[address] [facility] URCULTIF+? - [facility] Culture Ordered 06/13/2019 13:[address] [facility] URINE SQUAMOUS CELLS - [facility] FEW NEG #/hpf 06/13/2019 13:[address] [facility] URINE WBC - [facility] 5-10 NEG wbc/hpf 06/13/2019 13:[address] [facility] 06/13/2019 13:3 0 EDT 06/13/2019 13:42 EDT Flynn Smith MD URINALYSIS ORDERABLE S [facility] documented in this encounter Visit Diagnoses Not on filedocumented in this encounter Care Teams Floor Covering Layer Relationship Specialty Start Date End Date Jose Hillman MD PCP - General 04/02/09 07/06/19 Georgie Stewart, TOP TILE DECORATOR [address] [place] [phone] PCP - General 07/07/19 documented as of this encounter
--- OUTSIDE RECORDS SUMMARY | 2024-03-19 06:25 | XMS_ITS | Encounter Summary ---
Author Organization [facility] Address [address] [place] [address] Care Team Providers Care Receptionist/Telephone Operator Name Role Phone Aric Hurley MD Primary Care Provider Un available Encounter Details Date Type Department Care Team (Late st Contact Info) Description 11/02/2008 Before PRISM Converted Visit (Maple) [facility] Adult Primary Care - [address] [id number] Unknown, Provider, Social History Tobacco Use Types Packs/Day Years Used Date Smoking Tobacco: Never Assessed Sex and Gender Information Value Date Recorded Sex Assigned at Not on file Gender Identity Female 07/07/2019 11:20 EST Sexual Orientation Not on file documented as of this encounter Plan of Treatment Not on file documented as of this encounter Procedures Procedure Name Priority Date/Time Associated Diagnosis Comments CHLAMYDIA/N. GONORRHOEAE AMPLIFIED NUCLEIC ACID Routine 11/02/2008 17:20 EST CYTOPATHOLOGY Routine 11/02/2008 0:00 EST documented in this encounter Results * CHLAMYDIA/GC AMPLIFIED (11/02/2008 17:20 EST) Specimen Description Cervix [facility] Result No Chlamydia trachomatis DNA detected by internet marketing analyst mediated amplification. [facility] Result No Neisseria gonorrhoeae DNA detected by internet marketing analyst mediated amplification. [facility] 11/02/2008 17:2 0 EST 11/02/2008 23:10 EST Provider Unknown MD MICROBIOLOGY - GENER AL ORDERABLES [facility] [address] [address] * CYTOPATHOLOGY (11/02/2008 0:00 EST) Pathology Report: CYTOPATHOLOGY REPORT ? Reports generated via electronic interface contain original data; ? however they are lacking the format of the original report. ? Caution should be taken when reading/interpreti ng unformatted reports. ? Name: ? MARÍA ELENA FORD ? Accession #: ? [id number] ? : ? 1985 (Age: 23) ??F ?Collect Date: ? 11/02/2008 ? Location: ? [facility] ? Receive Date: ? 11/03/2008 ? Provider: ?ABNER ROYAL MD ? Copy to: ? Specimen/Source: ?Pap Test, Cervix/Endocervix, ThinPrep Imaging System ? with manual evaluation ? Last Menstrual Period: ? Menstrual/Pregnanc y Status: ? Other: ? HPVA - HPV testing requested if ASC-US on the current ThinPrep Pap test. ? SPECIMEN ADEQUACY ? Unsatisfactory for Evaluation, ? - insufficient numbers of squamous epithelial cells (less than 10% of expected ?? cellularity) ? GENERAL CATEGORIZATION ? Specimen processed and examined, but unsatisfactory for evaluation of ? epithelial abnormality. ? Recommend repeat Pap test or further follow up, as clinically indicated. ? Document reviewed and electronically signed by: ? Genny [place], [place](ASCP) ? Report Date: ??11/05/2008 12:46 ? End of Report ? [facility] 11/02/2008 11/03/2008 Abner Royal MD PATHOLOGY ORDERABLES [facility] [address] [place] [address] documented in this encounter Visit Diagnoses Not on filedocumented in this encounter Care Teams Receptionist/Telephone Operator Relationship Specialty Start Date End Date Aric Hurley MD PCP - General 01/13/09 04/01/09 documented as of this encounter
--- OUTSIDE RECORDS SUMMARY | 2024-03-19 06:25 | XMS_ITS | Encounter Summary ---
Author Organization [facility] Address [address] [place] [address] Care Team Providers Care Cash Checker Name Role Phone Unavailable Primary Care Provider Unavailabl e Encounter Details Date Type Department Care Team (Latest Contact Info) Description 09/22/2002 14:14 EST Hospital Encounter [facility] - Other [address] [place] [address] Abner Royal MD Unknown, Provider, Discharge Disposition: Auto Discharge Social History Tobacco Use Types Packs/Day Years [...] Priority Date/Time Associated Diagnosis Comments CYTOPATHOLOGY Routine 09/22/2002 0:00 EST documented in this encounter Results * CYTOPATHOLOGY (09/22/2002 0:00 EST) Pathology Report: CYTOPATHOLOGY REPORT Reports generated via electronic interface contain original data; however they are lacking the format of the original report. Caution should be taken when reading/interpreti ng unformatted reports. Name: ? MARÍA ELENA FORD ? Accession #: ? [id number] : ? 1985 (Age: 17) ??F ?Collect Date: ? 09/22/2002 Location: ? [facility] ? Receive Date: ? 09/24/2002 Provider: ?ABNER ROYAL MD Copy to: ? Specimen/Source: ?ThinPrep Pap Test, Cervix Last Menstrual Period: ? 06/04 Menstrual/Pregnanc y Status: ? SPECIMEN ADEQUACY ? Satisfactory for Evaluation - transformation zone component present GENERAL CATEGORIZATION ? Negative for Intraepithelial Lesion or Malignancy ? Document reviewed and electronically signed by: ? ANICETO Hsieh(ASCP) ? Report Date: ??09/25/2002 13:31 End of Report [facility] 09/22/2002 09/24/2002 Abner Royal MD PATHOLOGY ORDERABLES [facility] [address] [place] [address] documented in this encounter Visit Diagnoses Not on filedocumented in this encounter
--- OUTSIDE RECORDS SUMMARY | 2024-03-19 06:25 | XMS_ITS | Encounter Summary ---
Author Organization [facility] Address [address] [place] [address] Care Team Providers Care Meat Wrapper Name Role Phone Jose Hillman MD Primary Care Provider Unav ailable Encounter Details Date Type Department Care Team (Late st Contact Info) Description 06/19/2016 Results Only [facility] Clinical Genetics - [place] [address] [place], [place] [id number] Opal Swift MD [address] [place] [address] Social History Tobacco Use Types Packs/Day Years Used Date Smoking Tobacco: Never Assessed Sex and Gender Information Value Date Recorded Sex Assigned at Not on file Gender Identity Female 07/07/2019 11:20 EST Sexual Orientation Not on file documented as of this encounter Plan of Treatment Not on file documented as of this encounter Procedures Procedure Name Priority Date/Time Associated Diagnosis Comments PARENTAL GENEDX TESTING Routine 06/19/2016 19:41 EDT documented in this encounter Results * PARENTAL GENEDX TESTING (06/19/2016 19:41 EDT) Parent of Owen MantillaYI 08.30.2007 06/19/2016 19:[address] [facility] Comment Sent to [employer] for comparison purposes. 06/20/2016 11:[address] [facility] BLOOD SPECIMEN / Unknown 06/19/2016 19:41 EDT 06/19/2016 19:41 EDT Opal Swift MD LAB INFO SERVICE A ND SUPPORT & PHONE RESULT [facility] [address] [place] [address] documented in this encounter Visit Diagnoses Not on filedocumented in this encounter Care Teams Meat Wrapper Relationship Specialty Start Date End Date Jose Hillman MD PCP - General 04/02/09 07/06/19 documented as of this encounter
--- NOTE | 2024-03-19 06:38 | ED.GENADUL_ITS ---
Discharge Plan Disposition Patient Disposition: Home Condition: Good Discharge Details Clinical Impression: Tick bite, Anxiety Primary Care Provider: Unknown,Unknown ED Provider: Kun Quiroz and New Rx's Prescriptions: Continued lisinopril 2.5 mg tablet 5 mg PO DAILY magnesium oxide 500 mg capsule 500 mg PO QHS Qty: 90 3RF cyclobenzaprine 5 mg tablet 5 mg PO HS Qty: 90 3RF topiramate [Topamax] 50 mg tablet 50 mg PO QHS Qty: 30 3RF montelukast 10 mg Tablet 10 mg PO DAILY albuterol sulfate [ProAir HFA] 90 mcg/actuation Hfa Aerosol Inhaler 2 puff INHALATION 6XD PRN cholecalciferol (vitamin D3) [Vitamin D3] 10 mcg (400 unit) Tablet 10 mcg PO DAILY buspirone 10 mg tablet 30 mg PO BID Rx Instructions: 30mgs in am. 20 mgs in pm lisinopril 5 mg tablet 5 mg PO DAILY Patient Comments: TAKE ONE TABLET BY MOUTH EVERY DAY Discharge Instructions Instructions: Insect Bites and Stings ED Additional Instructions: You were seen in the ED for multiple tick bites. You were given a prophylactic dose of doxycycline though the likelihood of any tickborne illness including Lyme is minimal to begin with. There is no sign of infection related to the bites themselves. You may take ibuprofen as needed for discomfort. Please follow-up with your primary care physician. Return to ED if you develop any significant swelling, redness, drainage from a previous area that was bitten or if you develop fever, rash, joint pains, headache, other concerns. HPI General Mode of arrival: ambulatory . Date/Time Provider Initiated Documentation: 03/19/24 06:12 . Limitations to Documentation: no limitations . Related Data Home Medications ?Medication ?Instructions ?Recorded ?Confirmed albuterol sulfate 90 mcg/actuation 2 puff inhalation 6XD PRN 03/24/20 03/19/24 aerosol inhaler (ProAir HFA) cholecalciferol (vitamin D3) 10 10 mcg PO DAILY 03/24/20 03/19/24 mcg (400 unit) tablet (Vitamin D3) montelukast 10 mg tablet 10 mg PO DAILY 03/24/20 03/19/24 lisinopril 2.5 mg tablet 5 mg PO DAILY 06/19/22 03/19/24 cyclobenzaprine 5 mg tablet 5 mg PO HS #90 tabs 05/09/23 03/19/24 magnesium oxide 500 mg capsule 500 mg PO QHS #90 caps 05/09/23 03/19/24 buspirone 10 mg tablet 30 mg PO BID 10/18/23 03/19/24 topiramate 50 mg tablet (Topamax) 50 mg PO QHS #30 tabs 01/03/24 03/19/24 lisinopril 5 mg tablet 5 mg PO DAILY 03/19/24 03/19/24 Previous Rx's ?Medication ?Instructions ?Recorded cyclobenzaprine 5 mg tablet 5 mg PO HS #90 tabs 05/09/23 magnesium oxide 500 mg capsule 500 mg PO QHS #90 caps 05/09/23 topiramate 50 mg tablet (Topamax) 50 mg PO QHS #30 tabs 01/03/24 Allergies Allergy/AdvReac Type Severity Reaction Status Date / Time amlodipine Allergy Unknown Other (See Verified 03/19/24 06:25 Comment) aspirin Allergy Unknown Other (See Verified 03/19/24 06:25 Comment) benzonatate (From Tessalon Allergy Unknown Other (See Verified 03/19/24 06:25 Jose) Comment) ciprofloxacin Allergy Unknown Other (See Verified 03/19/24 06:25 Comment) codeine Allergy Unknown Other (See Verified 03/19/24 06:25 Comment) grape Allergy Unknown Other (See Verified 03/19/24 06:25 Comment) losartan Allergy Unknown Other (See Verified 03/19/24 06:25 Comment) nickel Allergy Unknown Other (See Verified 03/19/24 06:25 Comment) orange Allergy Unknown Other (See Verified 03/19/24 06:25 Comment) oxycodone (From Tylox) Allergy Unknown Other (See Verified 03/19/24 06:25 Comment) Penicillins Allergy Unknown Other (See Verified 03/19/24 06:25 Comment) potassium Allergy Unknown Other (See Verified 03/19/24 06:25 Comment) Sulfa (Sulfonamide Allergy Unknown Other (See Verified 03/19/24 06:25 Antibiotics) Comment) acetaminophen (From Tylox) Allergy Other (See Verified 03/19/24 06:25 Comment) latex Allergy Other (See Verified 03/19/24 06:25 Comment) lysol Allergy Unknown Other (See Uncoded 07/17/24 06:25 Comment) turnips Allergy Unknown Other (See Uncoded 03/19/24 06:25 Comment) wool Allergy Other (See Uncoded 03/19/24 06:25 Comment) General Stated Complaint: InsectBite MICHA: 4 Course Vital Signs Vital signs: Vital Signs Temperature 98.3 F 03/19/24 06:09 Pulse 92 H 03/19/24 06:09 Respiratory Rate 16 03/19/24 06:09 Blood Pressure 142/108 H 03/19/24 06:09 Pulse Oximetry 99 03/19/24 06:09 Temperature 98.3 F 03/19/24 06:09 Pulse 92 H 03/19/24 06:09 Respiratory Rate 16 03/19/24 06:09 Respiratory Effort Normal 03/19/24 06:15 Blood Pressure 142/108 H 03/19/24 06:09 Pulse Oximetry 99 03/19/24 06:09 Oxygen Delivery Method Room Air 03/19/24 06:09 Oxygen Flow Rate 0 03/19/24 06:09 Pain Level 7 03/19/24 06:09 Medical Decision Making Quality:SDOH Health Related Social Needs: No Data to Display PFSH All Active Problems (Updated 03/19/24 @ 06:35 by Kun Quiroz MD) Anxiety (Chronic) Tick bite (Acute) Migraine headache without aura (Acute) Left carpal tunnel syndrome (Acute) Frequent headaches (Acute) Medical History Chronic back pain Fibromyalgia Anxiety Depression PTSD (post-traumatic stress disorder) Vertigo Asthma Hypertension Hx of migraines Social History Smoking/Tobacco Use Status: Never Smoking risk assessment performed?: Yes Alcohol Intake: never Drug use: Never Substance use type: does not use Do you feel safe at home: Yes Do you feel safe in your relationship?: Yes
== END 2024-03-19 06:38 | disposition home or self-care (01) ==
PROVIDERS: Emergency Provider Emergency Medicine
DX: S80.871A Other superficial bite, right lower leg, initial encounter (principal); S80.872A Other superficial bite, left lower leg, initial encounter; S10.1 Other and unspecified superficial injuries of throat; W57.XXXA Bitten or stung by nonvenomous insect and other nonvenomous arthropods, initial encounter
CPT/HCPCS: 99282; 99283

== ENCOUNTER 2024-04-30 10:46 | Outpatient (REF) | payer MEDICAID, SELFPAY ==
--- OUTSIDE RECORDS SUMMARY | 2024-04-30 10:49 | XMS_ITS | Encounter Summary ---
Author Organization [facility] Address [address] [place] [address] Care Team Providers Care Ophthalmology Technician Name Role Phone StewartGeorgie banda Pritesh MIRANDA Primary Care Provider + Reason for Visit * Reason Comments Follow-up S/P HYST Encounter Details Date Type Department Care Team (Late st Contact Info) Description 09/04/2019 9:40 EST Office Visit [facility] [address] [place] [address] MD [address] [facility] [address] [place] [address] Post-operative state (Primary Dx) Social [...] MD - 09/04/2019 0940 EST HPI: María Elena Mantilla is a [...] of liver Skin: Rash resolved with nystatin SUMMER CAMP COUNSELOR History: Patient's last menstrual period was 06/05/2019 [...] Allergies Allergen Reactions ??? Codeine Anaphylaxis ??? Wbvjqlw-Vcc-Pp-Acetaminophen Anaphylaxis ??? Sulfa (Sulfonamide Antibiotics) Anaphylaxis ??? Aspirin Other reaction(s): unsure of reaction ??? [place]rick And Derivatives Other reaction(s): rash and hives [...] and dry, no rash Assessment/Plan: María Elena Matnilla is a 34 y.o. with doing well [...] 10/07/2019 added in this encounter Care Teams Ophthalmology Technician Relationship Specialty Start Date End Date Georgie Stewart APRN [address] [place] [address] PCP - General 07/07/19 documented as of this encounter
--- OUTSIDE RECORDS SUMMARY | 2024-04-30 10:49 | XMS_ITS | Encounter Summary ---
Author Organization [facility] Address [address] [place] [address] Care Team Providers Care Slab Conditioner Supervisor Name Role Phone Terry Georgie Pritesh MIRANDA Primary Care Provider + Encounter Details Date Type Department Care Team (Late st Contact Info) Description 05/20/2022 Lab Requisition [facility] Pathology & Laboratory Medicine - [facility] [address] [place] [address] Outr Resulting Lab, Provider Social History Tobacco [...] Factor <8.6 <12.0 IU/mL 05/21/2022 17:09 EDT [facility] Blood VENOUS BLOOD / Unknown 05/19/2022 12:25 EDT 05/21/2022 16:24 EDT Provider Outr Resulting Lab CHEMISTRY & BLOOD GAS ORDERABLES Performing Organization Address [facility] [place] [facility] Co de Phone Number [facility] [address] [place] [address] * ANTI NUCLEAR AB (TONY), IFA (05/19/2022 12:25 EDT) TONY Interpretation Negative Negative 2021 15:06 EDT [facility] Comment:No titer performed, TONY Screen is negative. Blood VENOUS BLOOD / Unknown 05/19/2022 12:25 EDT 05/21/2022 16:24 EDT Narrative [facility] - 05/22/2022 15:06 EDT Results were obtained with the INOVA NOVA Lite HEp-2 TONY Kit by indirect immunofluorescence. Provider Outr Resulting Lab IMMUNOLOGY A ND SEROLOGY ORDERABLES Performing Organization Address [facility] [place] [facility] Co de Phone Number [facility] [address] [place] [address] documented in this encounter Visit Diagnoses Not on filedocumented in this encounter Care Teams Slab Conditioner Supervisor Relationship Specialty Start Date End Date Georgie Stewart, [address] [place] [address] PCP - General 07/07/19 documented as of this encounter
--- OUTSIDE RECORDS SUMMARY | 2024-04-30 10:49 | XMS_ITS | Encounter Summary ---
Author Organization [facility] Address [address] [place] [address] Care Team Providers Care Repairer General Name Role Phone Georgie Stewart Pritesh MIRANDA Primary Care Provider + Reason for Visit * Reason Onset Date Comments Rash 08/22/2019 had lapro hyst. on Saturday 08/18, Encounter Details Date Type Department Care Team (Late st Contact Info) Description 08/22/2019 Telephone [facility] [address] [place] [address] MD [address] [facility], [address] [place] [address] Rash (had lapro hyst. on [...] on filedocumented in this encounter Care Teams Repairer General Relationship Specialty Start Date End Date Georgie Stewart, R[address] [place] [address] PCP - General 07/07/19 documented as of this encounter
--- OUTSIDE RECORDS SUMMARY | 2024-04-30 10:49 | XMS_ITS | Referral Summary ---
Author Organization [facility] Address [address] [place] [address] Care Team Providers Care Keyboard Teacher Name Role Phone TerryGeorgie Pritesh MIRANDA Primary Care Provider + Allergies Active Allergy Reactions Criticality Noted Date Comments Aspirin 04/02/2019 Other reaction(s): unsure of reaction Heard And Derivatives 04/02/2019 Other reaction(s): rash and hives and GI S/SX Codeine Anaphylaxis High 04/02/2019 Ugqvfym-Hmp-Mz-Acetaminophe n Anaphylaxis High 04/02/2019 Grape 04/02/2019 Other [...] of Treatment Not on file Care Teams Keyboard Teacher Relationship Specialty Start Date End Date Georgie Stewart, FRICKERTRON CHECKER [address] [place] [phone] PCP - General 07/07/19
--- OUTSIDE RECORDS SUMMARY | 2024-04-30 10:49 | XMS_ITS | Clinical Summary ---
Author Organization [facility] Address [address] [place] [address] Care Team Providers Care Hotel Maintenance Engineer Name Role Phone StewartGeorgie banda Pritesh MIRANDA Primary Care Provider + Allergies Active Allergy Reactions Criticality Noted Date Comments Aspirin 04/02/2019 Other reaction(s): unsure of reaction [place] And Derivatives 04/02/2019 Other reaction(s): rash and hives and GI S/SX Codeine Anaphylaxis High 04/02/2019 Txzwizw-Ilg-Qb-Acetaminophe n Anaphylaxis High 04/02/2019 Grape 04/02/2019 Other [...] Vaccine ( - season) 2023 Care Teams Hotel Maintenance Engineer Relationship Specialty Start Date End Date Georgie Stewart APRN [address] [place] [address] PCP - General 07/07/19
--- OUTSIDE RECORDS SUMMARY | 2024-04-30 10:49 | XMS_ITS | Encounter Summary ---
Author Organization [facility] Address [address] [place] [address] Care Team Providers Care Bio Medical Technician Name Role Phone StewartGeorgie banda Pritesh MIRANDA Primary Care Provider + Encounter Details Date Type Department Care Team (Late st Contact Info) Description 09/09/2019 Historical Results Only [facility] - Main [address] [address] Lucas Turcios MD [address] [place] [phone] Social History Tobacco Use Types Packs/Day [...] (09/09/2019 4:20 EST) [facility] 09/10/2019 12:26 EST [facility] CitrateConcentration 10,000-1 00,000 CFU/ML 09/10/2019 12:26 EST [facility] 09/09/2019 4:20 EST 09/09/2019 4:51 EST Comment:VOID Lucas Turcios MD MICROBIOLOGY - GENERAL ORDERABLES [facility] documented in this encounter Visit Diagnoses Not on filedocumented in this encounter Care Teams Bio Medical Technician Relationship Specialty Start Date End Date Georgie Stewart, TECHNICAL CUSTOMER SUPPORT SPECIALIST [address] [place] [phone] PCP - General 07/07/19 documented as of this encounter
--- OUTSIDE RECORDS SUMMARY | 2024-04-30 10:49 | XMS_ITS | Encounter Summary ---
Author Organization [facility] Address [address] [place] [address] Care Team Providers Care Retail Assistant Manager Name Role Phone StewartGeorgie banda Pritesh MIRANDA Primary Care Provider + Encounter Details Date Type Department Care Team (Late st Contact Info) Description 08/20/2019 Results Only Imaging [facility] [place] [address] [place] [address] MD [address] [facility], [address] [place] [address] Social History Tobacco Use Types [...] EXAM: ULTRASOUND/DOPPLER VEIN LOWER EXT. ??EX. D/ (4728) ? CLINICAL INFORMATION: ? SLLL - Swelling [...] MD ? CC: ? Transcribed Date/Time: 08/20/2019 (142) ? Sapphire Stylus Grinder: ? Printed Date/Time: 08/20/2019 (1430) ? PAGE 1 ? Signed Report ? Procedure Note Dar Bolivar MD - 12/18/2019 EXAM: ULTRASOUND/DOPPLER VEIN LOWER EXT. EX. D/ (9710) CLINICAL INFORMATION: SLLL - Swelling left lower [...] Dar Bolivar MD CC: Transcribed Date/Time: 08/20/2019 (9401) [employer] Stylus Grinder: Printed Date/Time: 08/20/2019 (4707) [address] MD IMG US ORDERABLES documented in this encounter Visit Diagnoses Not on filedocumented in this encounter Care Teams Retail Assistant Manager Relationship Specialty Start Date End Date Georgie Stewart, DEVICE TEST ENGINEER [address] [place] [address] PCP - General 07/07/19 documented as of this encounter
--- OUTSIDE RECORDS SUMMARY | 2024-04-30 10:49 | XMS_ITS | Encounter Summary ---
Author Organization [facility] Address [address] [place] [address] Care Team Providers Care Chemist Biological Name Role Phone StewartGeorgie banda Pritesh MIRANDA Primary Care Provider + Encounter Details Date Type Department Care Team (Late st Contact Info) Description 09/09/2019 Results Only [facility]- [facility] [phone] Lucas Turcios MD [address] [place] [phone] Social History Tobacco Use Types Packs/Day [...] Priority Date/Time Associated Diagnosis Comments URINALYSIS/COMPLETE - [facility] Routine 09/09/2019 4:20 EST COMPLETE BLOOD COUNT WITH DIFFERENTIAL (AUTO) Routine 09/09/2019 4:19 EST C REACTIVE PROTEIN Routine 09/09/2019 4: 19 EST COMPREHENSIVE METABOLIC PANEL (CMP) Routine 09/09/2019 4:19 EST documented in this encounter Results * URINALYSIS/COMPLETE - [facility] (09/09/2019 4:20 EST) URINE APPEARANCE - [facility] Clear CLEAR 09/09/2019 4:44 [facility] URINE BACTERIA - [facility] FEW 09/09/2019 4:50 [facility] URINE BILIRUBIN - DIPSTICK - [facility] 1+ NEGATIVE 09/09/2019 4:44 [facility] Comment: Unable to confirm positive urine bilirubin. If clinical correlation is inconsistent, consider serum bilirubin. URINE BLOOD - [facility] 3+ NEG 09/09/2019 4:44 [facility] URINE COLOR - [facility] Yellow YELLOW 09/09/2019 4:44 [facility] URINE GLUCOSE - [facility] - [facility] Negative NEGATIVE 09/09/2019 4:44 [facility] URINE KETONE - [facility] Trace NEGATIVE 09/09/2019 4:44 [facility] URINE LEUK ESTERASE - [facility] 1+ NEG 09/09/2019 4:44 [facility] URINE NITRITE - [facility] - [facility] Negative NEG 09/09/2019 4:44 [facility] URINE PH - [facility] 5.5 4.0 - 8.0 0 4:44 [facility] URINE PROTEIN - [facility] - [facility] Trace NEG 09/09/2019 4:44 [facility] URINE RBC - [facility] 15-20 rbc/hpf 09/09/19 20 4:50 [facility] URCULTIF+? - [facility] Culture Ordered 09/09/2019 4:50 [facility] URINE SPECIFIC GRAVITY - [facility] >=1.030 1.001 - 1.035 09/09/2019 4:44 [facility] URINE SQUAMOUS CELLS - [facility] FEW NEG #/hpf 09/09/2019 4:50 [facility] URINE UROBILINOGEN - [facility] - [facility] 0.2 0.2 - 1.0 09/09/2019 4:44 [facility] URINE WBC - [facility] 10-15 NEG wbc/hpf 020 4:50 [facility] 09/09/2019 4:20 EST 09/09/2019 4:24 EST Lucas Turcios MD CHEMISTRY & BL OOD GAS ORDERABLES Performing Organization Address [facility] Co de Phone Number [facility] * (ABNORMAL) C REACTIVE PROTEIN (09/09/2019 4:19 EST) C-Reactive Protein 10.2(H) <10.0 mg/L 09/09/2019 4:41 [facility] 09/09/2019 4:19 EST 09/09/2019 4:24 EST Lucas Turcios MD CHEMISTRY & BL OOD GAS ORDERABLES Performing Organization Address [facility]/ZIP Co de Phone Number [facility] * (ABNORMAL) COMPREHENSIVE METABOLIC PANEL (CMP) (09/09/2019 4:19 EST) Albumin % 4.0 3.4 - 4.9 g/dL 09/09/2019 4:41 [facility] ALKALINE PHOSPHATASE - [facility] 84 38 - 126 U/L 09/09/2019 4:41 [facility] BILIRUBIN TOTAL 0.2 0.2 - 1.3 mg/dL 09/09/2019 4:41 [facility] BUN - [facility] 21 10 - 26 mg/dL 09/09/2019 4:41 [facility] CALCIUM - [facility] 9.5 8.5 - 10.5 mg/dL 09/09/2019 4:41 [facility] Chloride 108 96 - 110 mmol/L 09/09/2019 4:41 [facility] CO2 Total 22 22 - 32 mEq/L 09/09/2019 4:41 [facility] CREATININE 0.77 0.52 - 1.04 mg/dL 09/09/2019 4:41 [facility] eGFR >60 09/09/2019 4:41 [facility] Comment: Chronic renal impairment is defined as GFR <60 Multiply result by 1.210 for patients. eGFR calculated using the IDMS-traceable MDRD Study Equation. ??(effective 07/06/2014) Anion Gap 9 0 - 18 09/09/2019 4:41 [facility] GLUCOSE - [facility] 112(H) 70 - 100 mg/dL 09/09/2019 4:41 [facility] Potassium 3.9 3.5 - 5.0 mEq/L 09/09/2019 4:41 [facility] Sodium 139 136 - 145 mEq/L 09/09/2019 4:41 [facility] TOTAL PROTEIN - [facility] 7.3 6.2 - 8.2 gm/dL 09/09/2019 4:41 [facility] SGOT/AST - [facility] 18 14 - 36 U/L 09/09/2019 4:41 [facility] SGPT/ALT - [facility] 29 9 - 52 U/L 0 4:41 [facility] 09/09/2019 4:19 EST 09/09/2019 4:24 EST Lucas Turcios MD CHEMISTRY & BL OOD GAS ORDERABLES [facility] * (ABNORMAL) COMPLETE BLOOD COUNT WITH DIFFERENTIAL (AUTO) (09/09/2019 4:19 EST) Gran # 4.4 2.2 - 8.85 10e3/uL 09/09/2019 4:37 [facility] BASO # - [facility] 0.06 0.01 - 0.11 10e/uL 09/09/2019 4:37 [facility] BASO % - [facility] 1 0 - 2 % 09/09/2019 4:37 [facility] EOS # - [facility] 0.40 0.03 - 0.61 10e3/ul 09/09/2019 4:37 [facility] EOS % - [facility] 5 0 - 5 % 09/09/2019 4:37 [facility] GRAN % - [facility] 56.4 40 - 80 % 09/09/2019 4:37 [facility] HEMATOCRIT - [facility] 40.6 34.9 - 44.4 % 09/09/2019 4:37 [facility] HEMOGLOBIN - [facility] 12.7 11.6 - 15.2 g/dl 09/09/2019 4:37 [facility] IG# - [facility] 0.04 0 - 0.7 10e3/uL 09/09/2019 4:37 [facility] IG% - [facility] 0.5 0 - 0.9 % 09/09/2019 4:37 [facility] LYMPH # - [facility] 2.4 1.09 - 3.3 10e3/ul 09/09/2019 4:37 [facility] LYMPH% - [facility] 31.1 20 - 40 % 09/09/2019 4:37 [facility] MEAN CORPUSCULAR HGB - [facility] 27.0 26.7 - 33.3 pg 09/09/2019 4:37 [facility] MEAN CORPUSCULAR HGB CONC - [facility] 31.3(L) 32.1 - 35.9 g/dL 09/09/2019 4:37 [facility] MEAN CELL VOLUME - [facility] 86.2 81 - 98 fl 09/09/2019 4:37 [facility] MONO # - [facility] 0.5 0.1 - 0.8 10e3/uL 09/09/2019 4:37 [facility] MONO% - [facility] 6.1 0 - 12 % 09/09/2019 4:37 EST [facility] PLATELET COUNT 346 141 - 377 10e3/ul 09/09/2019 4:37 EST [facility] RED BLOOD COUNT - [facility] 4.71 3.86 - 5.04 10e3/ul 09/09/2019 4:37 EST [facility] RED CELL DISTRI WIDTH - [facility] 12.7 <14.7 % 09/09/2019 4:37 EST [facility] WHITE BLOOD COUNT - [facility] 7.9 4.0 - 12.4 10e3/ul 09/09/2019 4:37 EST [facility] 09/09/2019 4:19 EST 09/09/2019 4:24 EST Lucas Turcios MD HEMATOLOGY & P F4 ORDERABLES [facility] documented in this encounter Visit Diagnoses Not on filedocumented in this encounter Care Teams Chemist Biological Relationship Specialty Start Date End Date Georgie Stewart, INCIDENT ENGINEER [address] [place] [address] PCP - General 07/07/19 documented as of this encounter
--- OUTSIDE RECORDS SUMMARY | 2024-04-30 10:49 | XMS_ITS | Encounter Summary ---
Author Organization [facility] Address [address] [place] [address] Care Team Providers Care Dermatology Procedural Physician Name Role Phone StewartGeorgie banda Pritesh MIRANDA Primary Care Provider + Reason for Visit * Reason Comments Follow-up Encounter Details Date Type Department Care Team (Late st Contact Info) Description 10/07/2019 10:20 EST Office Visit [facility] [address] [place] [address] MD [address] [facility], [address] [place] [address] Post-operative state (Primary Dx) Social [...] Genitourinary: Negative. Musculoskeletal: Positive for back pain. 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 Codeine Anaphylaxis ??? Ugagxot-Azw-Us-Acetaminophen Anaphylaxis ??? Sulfa (Sulfonamide Antibiotics) Anaphylaxis ??? Aspirin Other reaction(s): unsure of reaction ??? Nucla And Derivatives Other reaction(s): rash and hives [...] daily. added in this encounter Care Teams Dermatology Procedural Physician Relationship Specialty Start Date End Date Georgie Stewart, RUBEN [address] [place] [address] PCP - General 07/07/19 documented as of this encounter
--- OUTSIDE RECORDS SUMMARY | 2024-04-30 10:49 | XMS_ITS | Encounter Summary ---
Author Organization [facility] Address [address] [place] [address] Care Team Providers Care Director Of Finance Name Role Phone Georgie Stewart RUBEN Primary Care Provider + Reason for Visit * Reason Onset Date Comments Medications Refill 08/21/2019 Pt is wonderi ng if provider could prescribe ibprophin the over the counter isn't working, Pt had surgery on Sunday, pain is every 5 hours. [facility] in [place] is her preferred pharmacy. Encounter Details Date Type Department Care Team (Late st Contact Info) Description 08/21/2019 Refill [facility] [address] [place] [address] MD [address] [facility], [address] [place] [address] Medications Refill (Pt is wondering if provider could prescribe ibprophin the over the counter isn't working, Pt had surgery on Sunday, pain is every 5 hours. [facility] in [place] is her preferred pharmacy. ) Social History [...] dose of ibuprofen so will send to [facility] in [place]. * Telephone Encounter - Rani Reyes, DARRELL [...] on Sunday, pain is every 5 hours. [email or web address] in [place] is her preferred pharmacy. documented in this [...] documented as of this encounter Care Teams Director Of Finance Relationship Specialty Start Date End Date Georgie Stewart, GIS PROGRAMMER [address] [place] [address] PCP - General 07/07/19 documented as of this encounter
--- OUTSIDE RECORDS SUMMARY | 2024-04-30 10:49 | XMS_ITS | Encounter Summary ---
Author Organization [facility] Address [address] [place] [address] Care Team Providers Care Machine Wedger Name Role Phone StewartGeorgie banda Pritesh MIRANDA Primary Care Provider + Reason for Visit * Reason Onset Date Comments Rash 08/22/2019 Pt had a procedu re Sunday, this morning she woke up with a rash, like three on the left side of her belly. Encounter Details Date Type Department Care Team (Late st Contact Info) Description 08/22/[address] [facility] [address] MD [address] [facility], [address] [place] [address] Rash (Pt had a procedure [...] filedocumented in this encounter Care Teams Machine Wedger Relationship Specialty Start Date End Date Georgie Stewart APRN [address] [place] [place] [address] PCP - General 07/07/19 documented as of this encounter
--- OUTSIDE RECORDS SUMMARY | 2024-04-30 10:49 | XMS_ITS | Encounter Summary ---
Author Organization [facility] Address [address] [place] [address] Care Team Providers Care Consumer Loan Officer Name Role Phone StewartGeorgie banda Pritesh MIRANDA Primary Care Provider + Encounter Details Date Type Department Care Team (Late st Contact Info) Description 09/23/2019 Results Only [facility] Rad[facility] Results [address] [place] [address] Gerald Dumont MD [facility] [address] [place] [address] Social History Tobacco Use Types [...] CC: Swati Lane MD; Georgie Stewart APRN ORGAN ASSEMBLER-BC ? Transcribed Date/Time: 09/23/2019 (8029) ? Mine Patrol: ? Printed Date/Time: 09/23/2019 (2867) ? PAGE 2 ? Signed Report ? [...] CC: Swati Lane MD; Georgie Stewart APRN ORGAN ASSEMBLER-BC Transcribed Date/Time: 09/23/2019 (1115) Mine Patrol: Printed Date/Time: 09/23/2019 (3948) PAGE 2 Signed Report Gerald Dumont MD IMG MRI ORDERABLES documented in this encounter Visit Diagnoses Not on filedocumented in this encounter Care Teams Consumer Loan Officer Relationship Specialty Start Date End Date Georgie Stewart APRN [address] [place] [address] PCP - General 07/07/19 documented as of this encounter
--- OUTSIDE RECORDS SUMMARY | 2024-04-30 10:49 | XMS_ITS | Encounter Summary ---
Author Organization [facility] Address [address] [place] [address] Care Team Providers Care Kapok And Cotton Machine Operator Name Role Phone Georgie Stewart APRN [...] on filedocumented in this encounter Care Teams Kapok And Cotton Machine Operator Relationship Specialty Start Date End Date Georgie Stewart APRN [address] [place] [address] PCP - General 07/07/19 documented as of this encounter
--- OUTSIDE RECORDS SUMMARY | 2024-04-30 10:50 | XMS_ITS | Encounter Summary ---
Author Organization [facility] Address [address] [place] [address] Care Team Providers Care Immigration Coordinator Name Role Phone Jose Hillman MD Primary Care Provider Unav ailable Encounter Details Date Type Department Care Team (Latest Contact Info) Description 09/30/2018 11:44 EST - 09/30/2018 23:59 EST Hospital Encounter [facility] [address] [place] [address] Unknown, Provider, Discharge Disposition: Home or Self [...] on filedocumented in this encounter Care Teams Immigration Coordinator Relationship Specialty Start Date End Date Jose Hillman MD PCP - General 04/02/09 07/06/19 documented as of this encounter
--- OUTSIDE RECORDS SUMMARY | 2024-04-30 10:50 | XMS_ITS | Encounter Summary ---
Author Organization [facility] Address [address] [place] [address] Care Team Providers Care Manager Client Service Name Role Phone StewartGeorgie banda Pritesh MIRANDA Primary Care Provider + Encounter Details Date Type Department Care Team (Late st Contact Info) Description 08/18/2019 Orders Only [facility] [address] [place] [address] MD [address] [facility], [address] [place] [address] Social History Tobacco Use Types [...] documented as of this encounter Care Teams Manager Client Service Relationship Specialty Start Date End Date Georgie Stewart APRN [address] [place] [phone] PCP - General 07/07/19 documented as of this encounter
--- OUTSIDE RECORDS SUMMARY | 2024-04-30 10:50 | XMS_ITS | Encounter Summary ---
Author Organization [facility] Address [address] [place] [address] Care Team Providers Care Dumper Name Role Phone Jose Hillman MD Primary Care Provider Unav ailable Encounter Details Date Type Department Care Team (Late st Contact Info) Description 08/11/2010 Results Only [facility] [address] [place] [address] [phone] Abner Royal MD Social History Tobacco Use [...] MARÍA ELENA FORD ? Accession #: ? [id number] ? : ? 1985 (Age: 25) ??F [...] PATHOLOGY ORDERABLES [facility] [address] [place] [address] documented in this encounter Visit Diagnoses Not on filedocumented in this encounter Care Teams Dumper Relationship Specialty Start Date End Date Jose Hillman MD PCP - General 04/02/09 07/06/19 documented as of this encounter
--- OUTSIDE RECORDS SUMMARY | 2024-04-30 10:50 | XMS_ITS | Encounter Summary ---
Author Organization [facility] Address [address] [place] [address] Care Team Providers Care Help Aid Name Role Phone Jose Hillman MD Primary Care Provider Unav Aric Chow MD Primary Care Provider Un available Encounter Details Date Type Department Care Team (Late st Contact Info) Description 11/29/2006 Results Only [facility] [address] [place] [address] Abner Anand MD Social History Tobacco Use [...] MARÍA ELENA FORD ? Accession #: ? [id number] : ? 1985 (Age: 21) ??F ?Collect Date: ? 11/29/2006 Location: ? [facility] ? Receive Date: ? 11/30/2006 Provider: ?ABNER ANAND MD Copy to: ? Specimen/Source: ?ThinPrep Pap Test, Cervix/Endocervix, processed on Tern ThinPrep Imaging System, with manual evaluation Last [...] MD PATHOLOGY ORDERABLES [facility] [address] [place] [address] documented in this encounter Visit Diagnoses Not on filedocumented in this encounter Care Teams Help Aid Relationship Specialty Start Date End Date Jose Hillman MD PCP - General 04/02/09 07/06/19 Aric Hurley MD PCP - General 01/13/09 04/01/09 documented as of this encounter
--- OUTSIDE RECORDS SUMMARY | 2024-04-30 10:50 | XMS_ITS | Encounter Summary ---
Author Organization [facility] Address [address] [place] [address] Care Team Providers Care Print Line Tailer Name Role Phone Georgie Stewart RUBEN Primary Care Provider + Reason for Visit * Reason Onset Date Comments Prior Auth, Other (i.e. radi ology, etc.) 08/11/2019 PER [place]ILED [place]ID [place] APPRO DASHAWN [id number] Encounter Details Date Type Department Care Team (Late st Contact Info) Description 08/11/2019 Telephone [facility] [address] [place], [place] [id number] MD [address] [facility], [address] [place] [address] Prior Auth, Other (i.e. radiology, etc.) (PER [place] [id number]) Social History Tobacco Use Types Packs/Day Years [...] - 08/11/2019 1047 EST PER MAILED MEDICAID [place] APPROVED [id number] documented in this encounter Plan of Treatment Not on file documented as of this encounter Visit Diagnoses Not on filedocumented in this encounter Care Teams Print Line Tailer Relationship Specialty Start Date End Date Georgie Stewart, DEPUTY ATTORNEY GENERAL [address] [place] [address] PCP - General 07/07/19 documented as of this encounter
--- OUTSIDE RECORDS SUMMARY | 2024-04-30 10:50 | XMS_ITS | Encounter Summary ---
Author Organization [facility] Address [address] [place] [address] Care Team Providers Care Retail Route Supervisor Name Role Phone Jose Hillman MD Primary Care Provider Georgie Brennan APRN Primary Care Provider + Encounter Details Date Type Department Care Team (Late st Contact Info) Description 06/19/2019 Results Only [facility] - Main [address] [address] Zoran Lubin MD [address] [place] [phone] Social History Tobacco Use Types Packs/Day Years Used Date Smoking Tobacco: Never Assessed Sex and Gender Information Value Date Recorded Sex Assigned at Not on file Gender Identity Female 07/07/2019 11:20 EST Sexual Orientation Not on file documented as of this encounter Plan of Treatment Not on file documented as of this encounter Procedures Procedure Name Priority Date/Time Associated Diagnosis Comments [facility] - [facility] Routine 06/19/2019 6: 50 EDT COMPLETE BLOOD COUNT WITH DIFFERENTIAL (AUTO) Routine 06/19/2019 6:50 EDT C REACTIVE PROTEIN Routine 06/19/2019 6: 50 EDT COMPREHENSIVE METABOLIC PANEL (CMP) Routine 06/19/2019 6:50 EDT documented in this encounter Results * C REACTIVE PROTEIN (06/19/2019 6:50 EDT) [facility] C-Reactive Protein 7.7 <10.0 mg/L 06/19/2019 7:15 [facility] 06/19/2019 6:50 EDT 06/19/2019 6:59 EDT Zoran Lubin MD CHEMISTRY & BLOOD G ORDERABLES [facility] * (ABNORMAL) COMPREHENSIVE METABOLIC PANEL (CMP) (06/19/2019 6:50 EDT) [facility] Albumin % 4.2 3.4 - 4.9 g/dL 06/19/2019 7:15 [facility] ALKALINE PHOSPHATASE - [facility] 62 38 - 126 U/L 06/19/2019 7:15 [facility] BILIRUBIN TOTAL 0.5 0.2 - 1.3 mg/dL 06/19/2019 7:15 [facility] BUN - [facility] 12 10 - 26 mg/dL 06/19/2019 7:15 [facility] CALCIUM - [facility] 9.4 8.5 - 10.5 mg/dL 06/19/2019 7:15 [facility] Chloride 108 96 - 110 mmol/L 06/19/2019 7:15 [facility] CO2 Total 19(L) 22 - 32 mEq/L 06/19/2019 7:15 [facility] CREATININE 0.75 0.52 - 1.04 mg/dL 06/19/2019 7:15 [facility] eGFR >60 06/19/2019 7:15 [facility] Comment: Chronic renal impairment is defined as GFR <60 Multiply result by 1.210 for patients. eGFR calculated using the IDMS-traceable MDRD Study Equation. ??(effective 07/06/2014) Anion Gap 14 0 - 18 06/19/2019 7:15 [facility] GLUCOSE - [facility] 114(H) 70 - 100 mg/dL 06/19/2019 7:15 [facility] Potassium 4.0 3.5 - 5.0 mEq/L 06/19/2019 7:15 EDT [facility] Sodium 141 136 - 145 mEq/L 06/19/2019 7:15 EDT [facility] TOTAL PROTEIN - [facility] 7.4 6.2 - 8.2 gm/dL 06/19/2019 7:15 EDT [facility] SGOT/AST - [facility] 23 14 - 36 U/L 06/19/2019 7:15 EDT [facility] SGPT/ALT - [facility] 38 9 - 52 U/L 9 7:15 EDT [facility] 06/19/2019 6:50 EDT 06/19/2019 6:59 EDT Zoran Lubin MD CHEMISTRY & BLOOD G ORDERABLES Performing Organization Address City/[facility]/ZIP Co de Phone Number [facility] * [facility] (06/19/2019 6:50 EDT) [facility] - [facility] NEG 06/19/2019 7:13 EDT [facility] 06/19/2019 6:50 EDT 06/19/2019 6:59 EDT Zoran Lubin MD HEMATOLOGY & PF4 OR DERABLES [facility] * COMPLETE BLOOD COUNT WITH DIFFERENTIAL (AUTO) (06/19/2019 6:50 EDT) ABSOLUTE NEUTROPHIL COUN - [facility] 4.7 2.2 - 8.85 10e3/uL 06/19/2019 7:02 EDT [facility] BASO # - [facility] 0.05 0.01 - 0.11 10e/uL 06/19/2019 7:02 EDT [facility] BASO % - [facility] 1 0 - 2 % 06/19/2019 7:02 EDT [facility] EOS # - [facility] 0.27 0.03 - 0.61 10e3/ul 06/19/2019 7:02 [facility] EOS % - [facility] 3 0 - 5 % 06/19/2019 7:02 [facility] GRAN % - [facility] 59.6 40 - 80 % 06/19/2019 7:02 [facility] HEMATOCRIT - [facility] 38.7 34.9 - 44.4 % 06/19/2019 7:02 [facility] HEMOGLOBIN - CV 12.9 11.6 - 15.2 g/dl 06/19/2019 7:02 [facility] IG# - [facility] 0.04 0 - 0.7 10e3/uL 06/19/2019 7:02 [facility] IG% - [facility] 0.5 0 - 0.9 % 06/19/2019 7:02 [facility] LYMPH # - [facility] 2.3 1.09 - 3.3 10e3/ul 06/19/2019 7:02 [facility] LYMPH% - [facility] 28.5 20 - 40 % 06/19/2019 7:02 [facility] MEAN CORPUSCULAR HGB - CV 30.4 26.7 - 33.3 pg 06/19/2019 7:02 [facility] MEAN CORPUSCULAR HGB CONC - [facility] 33.3 32.1 - 35.9 g/dL 06/19/2019 7:02 [facility] MEAN CELL VOLUME - [facility] 91.1 81 - 98 fl 06/19/2019 7:02 [facility] MONO # - [facility] 0.6 0.1 - 0.8 10e3/uL 06/19/2019 7:02 [facility] MONO% - [facility] 7.4 0 - 12 % 06/19/2019 7:02 [facility] PLATELET COUNT 314 141 - 377 10e3/ul 06/19/2019 7:02 [facility] RED BLOOD COUNT - CV 4.25 3.86 - 5.04 10e3/ul 06/19/2019 7:02 [facility] RED CELL DISTRI WIDTH - [facility] 12.1 <14.7 % 06/19/2019 7:02 EDT [facility] WHITE BLOOD COUNT - [facility] 8.0 4.0 - 12.4 10e3/ul 06/19/2019 7:02 EDT [facility] 06/19/2019 6:50 EDT 06/19/2019 6:59 EDT Zoran Davis Lubin MD HEMATOLOGY & PF4 OR DERABLES [facility] documented in this encounter Visit Diagnoses Not on filedocumented in this encounter Care Teams Retail Route Supervisor Relationship Specialty Start Date End Date Jose Hillman MD PCP - General 04/02/09 07/06/19 Georgie Stewart, RN DIABETES EDUCATOR [address] [facility] [place] [phone] PCP - General 07/07/19 documented as of this encounter
--- OUTSIDE RECORDS SUMMARY | 2024-04-30 10:50 | XMS_ITS | Encounter Summary ---
Author Organization [facility] Address [address] [place] [address] Care Team Providers Care Roofer Name Role Phone Jose Hillman MD Primary Care Provider Unav ailable Encounter Details Date Type Department Care Team (Late st Contact Info) Description 08/09/2009 Abstract [facility] - [facility] [address] [place] [address] Jose Hillman MD Spotting in Social History [...] applicable documented in this encounter Care Teams Roofer Relationship Specialty Start Date End Date Jose Hillman MD PCP - General 04/02/09 07/06/19 documented as of this encounter
--- OUTSIDE RECORDS SUMMARY | 2024-04-30 10:50 | XMS_ITS | Encounter Summary ---
Author Organization [facility] Address [address] [place] [address] Care Team Providers Care Etl Application Developer Name Role Phone Jose Hillman MD Primary Care Provider Unav ailable Encounter Details Date Type Department Care Team (Latest Contact Info) Description 05/19/2019 11:21 EDT - 05/19/2019 23:59 EDT Hospital Encounter [facility] [address] [place] [address] Unknown, Provider, Discharge Disposition: Home or Self [...] on filedocumented in this encounter Care Teams Etl Application Developer Relationship Specialty Start Date End Date Jose Hillman MD PCP - General 04/02/09 07/06/19 documented as of this encounter
--- OUTSIDE RECORDS SUMMARY | 2024-04-30 10:50 | XMS_ITS | Encounter Summary ---
Author Organization [facility] Address [address] [place] [address] Care Team Providers Care Hydroelectric Plant Electrical Engineer Name Role Phone StewartGeorgie banda Pritesh MIRANDA Primary Care Provider + Reason for Referral * Laboratory Services (Routine) - New Request Specialty Diagnoses / Procedures Referred By Contac t Referred To Contact Diagnoses DUB (dysfunctional uterine bleeding) Procedures MISCELLANEOUS TEST, NON MARCOS Swati Lane MD [address] [facility], [address] [place] [address] Referral ID Status Reason Start Date Expiration Date V isits Requested Visits Authorized [id number] New Request 2019 1 1 * Laboratory Services (Routine) - New Request Specialty Diagnoses / Procedures Referred By Contac t Referred To Contact Diagnoses DUB (dysfunctional uterine bleeding) Procedures HEMOGLOBIN A1C Swati Lane MD [address] [facility], [address] [place] [address] Referral ID Status Reason Start Date Expiration Date V isits Requested Visits Authorized [id number] New Request 2019 1 1 * Laboratory Services (Routine) - New Request Specialty Diagnoses / Procedures Referred By Contac t Referred To Contact Diagnoses DUB (dysfunctional uterine bleeding) Procedures PRE-OP BLOOD BANK DRAW Rani Reyes RN Referral ID Status Reason Start Date Expiration Date V isits Requested Visits Authorized [id number] New Request 2019 1 1 * Laboratory Services (Routine) - New Request Specialty Diagnoses / Procedures Referred By Contac t Referred To Contact Diagnoses DUB (dysfunctional uterine bleeding) Procedures CREATININE Swati Lane MD [address] [place] [address], [facility] [address] [phone] Referral ID Status Reason Start Date Expiration Date V isits Requested Visits Authorized [id number] New Request 2019 1 1 * Laboratory Services (Routine) - New Request Specialty Diagnoses / Procedures Referred By Contac t Referred To Contact Diagnoses DUB (dysfunctional uterine bleeding) Procedures GLUCOSE, SERUM Swati Lane MD [address] [place] [address] [phone] Referral ID Status Reason Start Date Expiration Date V isits Requested Visits Authorized [id number] New Request 2019 1 1 * Laboratory Services (Routine) - New Request Specialty Diagnoses / Procedures Referred By Contac t Referred To Contact Diagnoses DUB (dysfunctional uterine bleeding) Procedures COMPLETE BLOOD COUNT AND DIFFERENTIAL Swati Lane MD [address] [place] [phone] Referral ID Status Reason Start Date Expiration Date V isits Requested Visits Authorized [id number] New Request 2019 1 1 Reason for Visit * Reason Onset Date Comments Orders (Non Pre-visit) 2019 preop lab orders Encounter Details Date Type Department Care Team (Late st Contact Info) Description [address] [address] Rani Reyes RN Orders (Non [...] uterine bleeding) Ordered: 2019 MISCELLANEOUS TEST, NON [place] [facility] Routine DUB (dysfunctional uterine bleeding) Ordered: [...] 5.2 4.0 - 6.0 % 08/15/2019 13:[address] [facility] Comment: > or =18 years: [...] <7.5% Est Avg Glucose 103 mg/dL 13:00 [facility] Blood VENOUS BLOOD / Unknown 08/15/2019 7:31 EST 08/15/2019 7:32 EST Narrative [facility] - 08/15/2019 13:00 EST Does PT Have a Latex Allergy? YES Swati Lane MD CHEMISTRY & BLOOD GA S ORDERABLES [facility] * CREATININE (08/15/2019 7:31 EST) CREATININE 0.80 0.52 - 1.04 mg/dL 08/15/2019 9:23 EST [facility] eGFR >60 08/15/2019 9:23 [facility] Comment: Chronic renal impairment is defined as GFR <60 Multiply result by 1.210 for patients. eGFR calculated using the IDMS-traceable MDRD Study Equation. ??(effective 07/06/2014) Blood VENOUS BLOOD / Unknown 08/15/2019 7:31 EST 08/15/2019 7:31 EST Narrative [facility] - 08/15/2019 9:23 EST Does PT Have a Latex Allergy? YES Swati Lane MD CHEMISTRY & BLOOD GA S ORDERABLES [facility] * GLUCOSE, SERUM (08/15/2019 7:31 EST) GLUCOSE - [facility] 99 70 - 100 mg/dL 08/15/2019 9:23 EST [facility] Blood VENOUS BLOOD / Unknown 08/15/2019 7:31 EST 08/15/2019 7:31 EST Narrative [facility] - 08/15/2019 9:23 EST Does PT Have a Latex Allergy? YES Swati Lane MD CHEMISTRY & BLOOD GA S ORDERABLES [facility] documented in this encounter Visit Diagnoses Diagnosis DUB (dysfunctional uterine bleeding)- Primary Other disorder of menstruation and other abnormal bleeding from female genital tract documented in this encounter Care Teams Hydroelectric Plant Electrical Engineer Relationship Specialty Start Date End Date Georgie Stewart, INTERN RETAIL [address] [place] [phone] PCP - General 07/07/19 documented as of this encounter
--- OUTSIDE RECORDS SUMMARY | 2024-04-30 10:50 | XMS_ITS | Encounter Summary ---
Author Organization [facility] Address [address] [place] [address] Care Team Providers Care Executive Admin Name Role Phone Joes Hillman MD Primary Care Provider Unav Aric Chow MD Primary Care Provider Un available Encounter Details Date Type Department Care Team (Late st Contact Info) Description 03/12/2007 Results Only [place] [facility] [address] [place] [address] Unknown, Provider, Social History Tobacco Use Types [...] S ORDERABLES Performing Organization Address [facility] Co de Phone Number [facility] [address] [place] [address] * SYPHILIS SERO (RPR) (03/12/2007 9:55 EDT) Syphilis Sero (RPR) NONREACT. NR Dils [facility] 03/12/2007 9:55 EDT 03/12/2007 22:19 EDT Provider Unknown IMMUNOLOGY AND SEROL OGY ORDERABLES Performing Organization Address [facility] Phone Number [facility] [address] [place] [address] * HIV ANTIBODY (NATHANAEL) (03/12/2007 9:55 EDT) HIV 1/2 Antibody NONREACT. NR [facility] 03/12/2007 9:55 EDT 03/12/2007 22:19 EDT Provider Unknown IMMUNOLOGY AND SEROL OGY ORDERABLES Performing Organization Address [facility] de Phone Number [facility] [address] [place] [address] * HEPATITIS B SURFACE ANTIGEN (03/12/2007 9:55 EDT) Hepatitis B Surface Ag Neg [facility] 03/12/2007 9:55 EDT 03/12/2007 22:19 EDT Provider Unknown CHEMISTRY & BLOOD GA S ORDERABLES Performing Organization Address [facility] Co de Phone Number [facility] [address] [place] [address] documented in this encounter Visit Diagnoses Not on filedocumented in this encounter Care Teams Executive Admin Relationship Specialty Start Date End Date Jose Hillman MD PCP - General 04/02/09 07/06/19 Aric Hurley MD PCP - General 01/13/09 04/01/09 documented as of this encounter
--- OUTSIDE RECORDS SUMMARY | 2024-04-30 10:50 | XMS_ITS | Encounter Summary ---
Author Organization [facility] Address [address] [place] [address] Care Team Providers Care Audograph Operator Name Role Phone Aric Hurley MD Primary Care Provider Un available Encounter Details Date Type Department Care Team (Late st Contact Info) Description 02/01/2009 Orders Only [facility] Adult Primary Care - [address] [phone] Unknown, Provider, Social History Tobacco Use Types [...] SEROL OGY ORDERABLES Performing Organization Address [facility] Co de Phone Number [facility] [address] [place] [address] * SYPHILIS SERO (RPR) (02/01/2009 7:42 EDT) Pathologist [facility] Syphilis Sero (RPR) NONREACT. NR Dils [facility] Blood specimen (specimen) 02/01/2009 7:42 EDT 02/01/2009 22:23 EDT Provider Unknown IMMUNOLOGY AND SEROL OGY ORDERABLES Performing Organization Address [facility] Phone Number [facility] [address] [place] [address] * RUBELLA IGG ANTIBODY (02/01/2009 7:42 EDT) Pathologist [facility] Rubella IgG Ab Antibody detected Assayed utilizing the DPC Immulite 2500. Values may vary with other methods. [facility] Blood specimen (specimen) 02/01/2009 7:42 EDT 02/01/2009 22:23 EDT Provider Unknown CHEMISTRY & BLOOD GA S ORDERABLES Performing Organization Address [facility] Phone Number [facility] [address] [place] [address] * HEPATITS B SURFACE ANTIGEN (02/01/2009 7:42 EDT) Pathologist [facility] Hepatitis B Surface Ag Negative Reference Range: ??Negative [facility] Blood specimen (specimen) 02/01/2009 7:42 EDT 02/01/2009 22:23 EDT Provider Unknown CHEMISTRY & BLOOD GA S ORDERABLES Performing Organization Address [facility] Co de Phone Number [facility] [address] [place] [address] documented in this encounter Visit Diagnoses Not on filedocumented in this encounter Care Teams Audograph Operator Relationship Specialty Start Date End Date Aric Hurley MD PCP - General 01/13/09 04/01/09 documented as of this encounter
--- OUTSIDE RECORDS SUMMARY | 2024-04-30 10:50 | XMS_ITS | Encounter Summary ---
Author Organization [facility] Address [address] [place] [address] Care Team Providers Care Chief Petroleum Engineer Name Role Phone Jose Hillman MD Primary Care Provider Georgie Brennan APRN Primary Care Provider + Encounter Details Date Type Department Care Team (Late st Contact Info) Description 06/12/2019 Results Only Imaging [facility] - [facility] Radiology Results [address] [place] [address] Jossie Lema, CHRISSIE [address] [place] [address] [place] [address] Social History Tobacco Use Types Packs/Day Years [...] CC: ? Transcribed Date/Time: 06/12/2019 (1221) ? Sql Ssrs Developer: ? Printed Date/Time: 06/12/2019 (1221) ? PAGE [...] Dar Bolivar MD CC: Transcribed Date/Time: 06/12/2019 (122) Sql Ssrs Developer: Printed Date/Time: 06/12/2019 (4144) PAGE 1 Signed Report Jossie Lema NP IMG DIAGNOSTIC IMAGI NG ORDERABLES documented in this encounter Visit Diagnoses Not on filedocumented in this encounter Care Teams Chief Petroleum Engineer Relationship Specialty Start Date End Date Jose Hillman MD PCP - General 04/02/09 07/06/19 Georgie Stewart, INTERIOR DESIGN INSTRUCTOR [address] [place] [address] PCP - General 07/07/19 documented as of this encounter
--- OUTSIDE RECORDS SUMMARY | 2024-04-30 10:50 | XMS_ITS | Encounter Summary ---
Author Organization [facility] Address [address] [place] [address] Care Team Providers Care Chaperone Name Role Phone Jose Hillman MD Primary Care Provider Unav ailable Encounter Details Date Type Department Care Team (Late st Contact Info) Description 05/19/2019 Historical Results Only [facility] Radiology Results [address] [place] [address] MD [address] [place] [address], [address] [place] [address] Social History Tobacco Use Types [...] noncritical result requiring ? follow-up on the [employer] PACS findings application, to be tracked by ? the [facility] tracking system. ? REPORT SIGNED IN OTHER VENDOR SYSTEM 05/19/2019 ?Reported By: Isaak Gautam MD ? CC: ? Transcribed Date/Time: 05/19/2019 (0831) ? Sheet Metal Insulator: ? Printed Date/Time: 05/21/2019 (1723) ? PAGE 2 ? Signed Report ? [...] a noncritical result requiring follow-up on the [employer] PACS findings application, to be tracked by the [facility] tracking system. REPORT SIGNED IN OTHER VENDOR SYSTEM 05/19/2019 Reported By: Isaak Gautam MD CC: Transcribed Date/Time: 05/19/2019 (0831) Sheet Metal Insulator: Printed Date/Time: 05/21/2019 (1721) [address] MD IMG US ORDERABLES documented in this encounter Visit Diagnoses Not on filedocumented in this encounter Care Teams Chaperone Relationship Specialty Start Date End Date Jose Hillman MD PCP - General 04/02/09 07/06/19 documented as of this encounter
--- OUTSIDE RECORDS SUMMARY | 2024-04-30 10:50 | XMS_ITS | Encounter Summary ---
Author Organization [facility] Address [address] [place] [address] Care Team Providers Care Loom Operator Apprentice Name Role Phone Aric Hurley MD Primary Care Provider Un available Encounter Details Date Type Department Care Team (Latest Contact Info) Description 02/01/2009 17:00 EDT - 02/01/2009 17:01 EDT Hospital Encounter [facility] - Other [address] [place] [address] Abner Anand MD Discharge Disposition: Home or [...] on filedocumented in this encounter Care Teams Loom Operator Apprentice Relationship Specialty Start Date End Date Aric Hurley MD PCP - General 01/13/09 04/01/09 documented as of this encounter
--- OUTSIDE RECORDS SUMMARY | 2024-04-30 10:50 | XMS_ITS | Encounter Summary ---
Author Organization [facility] Address [address] [place] [address] Care Team Providers Care Supervisor Frame Sample And Pattern Name Role Phone Jose Hillman MD Primary Care Provider Georgie Brennan APRN Primary Care Provider + Encounter Details Date Type Department Care Team (Late st Contact Info) Description 06/13/2019 Historical Results Only [facility] - [facility] Lab - Main [address] [address] Flynn Smith MD [address] [place] [phone] Social History Tobacco Use Types Packs/Day [...] [facility] 06/15/2019 11:08 EDT [facility] CitrateConcentration >100,000 CFU/ML 06/03 11:08 EDT [facility] 06/13/2019 13:3 6 EDT 06/13/2019 13:57 EDT Comment:VOID Flynn Smith MD MICROBIOLOGY - GENER AL ORDERABLES [facility] documented in this encounter Visit Diagnoses Not on filedocumented in this encounter Care Teams Supervisor Frame Sample And Pattern Relationship Specialty Start Date End Date Jose Hillman MD PCP - General 04/02/09 07/06/19 Georgie Stewart, ORACLE DATA WAREHOUSE DEVELOPER [address] [place] [phone] PCP - General 07/07/19 documented as of this encounter
--- OUTSIDE RECORDS SUMMARY | 2024-04-30 10:50 | XMS_ITS | Encounter Summary ---
Author Organization [facility] Address [address] [place] [address] Care Team Providers Care Plaster Form Maker Name Role Phone Jose Hillman MD Primary Care Provider Unav ailable Encounter Details Date Type Department Care Team (Late st Contact Info) Description 04/06/2009 Orders Only [facility] [phone] Abner Anand MD Social History Tobacco Use [...] Procedure Name Priority Date/Time Associated Diagnosis Comments [facility] ROUTINE 04/06/2009 14:46 EDT documented in this encounter Results * [facility] ROUTINE (04/06/2009 14:46 EDT) Anatomical Region Laterality Modality Other 04/06/2009 14:4 6 EDT 04/13/2009 5:40 EDT Narrative 04/13/2009 5:40 EDT Please refer to the separate [facility] report. ??Contact Maternal Medicine. Procedure Note 04/13/2009 Please refer to the separate [facility] report. Contact Maternal Medicine. Abner Anand MD IMG [facility] ORDERABLE S documented in this encounter Visit Diagnoses Not on filedocumented in this encounter Care Teams Plaster Form Maker Relationship Specialty Start Date End Date Jose Hillman MD PCP - General 04/02/09 07/06/19 documented as of this encounter
--- OUTSIDE RECORDS SUMMARY | 2024-04-30 10:50 | XMS_ITS | Encounter Summary ---
Author Organization [facility] Address [address] [place] [address] Care Team Providers Care Jacquard Loom Carpet Weaver Name Role Phone Jose Hillman MD Primary Care Provider Unav ailable Encounter Details Date Type Department Care Team (Latest Contact Info) Description 04/06/2009 12:54 EDT - 04/06/2009 23:59 EDT Hospital Encounter [facility] [place] [address] [place] [address] Theo Mchugh MD Discharge Disposition: Home or Self Care Social History Tobacco Use Types Packs/Day Years Used Date Smoking Tobacco: Never Assessed Sex and Gender Information Value Date Recorded Sex Assigned at Not on file Gender Identity Female 07/07/2019 11:20 EST Sexual Orientation Not on file documented as of this encounter Discharge Disposition Disposition Code Departure Means Destination Home or Self [facility] documented in this encounter Plan of Treatment [...] MARÍA ELENA FORD ? Accession #: ? [id number] ? : ? 1985 (Age: 24) ??F [...] PATHOLOGY ORDERABLES [facility] [address] [place] [address] documented in this encounter Visit Diagnoses Not on filedocumented in this encounter Care Teams Jacquard Loom Carpet Weaver Relationship Specialty Start Date End Date Jose Hillman MD PCP - General 04/02/09 07/06/19 documented as of this encounter
--- OUTSIDE RECORDS SUMMARY | 2024-04-30 10:50 | XMS_ITS | Encounter Summary ---
Author Organization [facility] Address [address] [place] [address] Care Team Providers Care Server Developer Name Role Phone Jose Hillman MD Primary Care Provider Unav ailable Encounter Details Date Type Department Care Team (Late st Contact Info) Description 09/24/2018 Historical Results Only [facility] [place] [address] [place] [address] MD [address] [place] [address]-, [address] [place] [address] Social History Tobacco Use Types [...] 2.06 0.46 - 4.68 uIU/mL 09/24/2018 12:28 [facility] 09/24/2018 11:0 0 EST 09/24/2018 11:00 EST Narrative [facility] - 09/24/2018 12:28 EST Does PT Have a Latex Allergy? YES Swati Lane MD CHEMISTRY & BLOOD GA S ORDERABLES [facility] * COMPLETE BLOOD COUNT WITH DIFFERENTIAL (AUTO) (09/24/2018 11:00 EST) ABSOLUTE NEUTROPHIL COUN - [facility] 5.1 2.2 - 8.85 10e3/uL 09/24/2018 11:40 [facility] BASO # - [facility] 0.05 0.01 - 0.11 10e/uL 09/24/2018 11:40 [facility] BASO % - [facility] 1 0 - 2 % 09/24/2018 11:40 [facility] EOS # - [facility] 0.12 0.03 - 0.61 10e3/ul 09/24/2018 11:40 [facility] EOS % - [facility] 1 0 - 5 % 09/24/2018 11:40 [facility] GRAN % - [facility] 59.6 40 - 80 % 09/24/2018 11:40 [facility] HEMATOCRIT - [facility] 42.7 34.9 - 44.4 % 09/24/2018 11:40 [facility] HEMOGLOBIN - [facility] 13.9 11.6 - 15.2 g/dl 09/24/2018 11:40 [facility] IG# - [facility] 0.03 0 - 0.7 10e3/uL 09/24/2018 11:40 [facility] IG% - [facility] 0.4 0 - 0.9 % 09/24/2018 11:40 [facility] LYMPH # - [facility] 2.6 1.09 - 3.3 10e3/ul 09/24/2018 11:40 [facility] LYMPH% - [facility] 30.3 20 - 40 % 09/24/2018 11:40 [facility] MEAN CORPUSCULAR HGB - [facility] 29.1 26.7 - 33.3 pg 09/24/2018 11:40 [facility] MEAN CORPUSCULAR HGB CONC - [facility] 32.6 32.1 - 35.9 g/dL 09/24/2018 11:40 [facility] MEAN CELL VOLUME - [facility] 89.3 81 - 98 fl 09/24/2018 11:40 [facility] MONO # - [facility] 0.7 0.1 - 0.8 10e3/uL 09/24/2018 11:40 [facility] MONO% - [facility] 7.7 0 - 12 % 09/24/2018 11:40 [facility] PLATELET COUNT 349 141 - 377 10e3/ul 09/24/2018 11:40 [facility] RED BLOOD COUNT - [facility] 4.78 3.86 - 5.04 10e3/ul 09/24/2018 11:40 [facility] RED CELL DISTRI WIDTH - [facility] 13.3 <14.7 % 09/24/2018 11:40 [facility] WHITE BLOOD COUNT - [facility] 8.6 4.0 - 12.4 10e3/ul 09/24/2018 11:40 [facility] 09/24/2018 11:0 0 EST 09/24/2018 11:00 EST [facility] - 09/24/2018 11:40 EST Does PT Have a Latex Allergy? YES Swati Lane MD HEMATOLOGY & PF4 ORD ERABLES [facility] * HUMAN PAPILLOMAVIRUS (HPV) DETECTION-HIGH RISK TYPES (09/24/2018 9:38 EST) HPV other High Risk types, PCR NEG 09/30/2018 15:10 [facility] Comment: Negative for HPV types 16, 18, 31, 33, 35, 39, 45, 51, 52, 56, 58, 59, 66, 68. Method: Cervista HPV HR (High Risk) DNA test. 09/24/2018 9:38 EST 09/25/2018 9:[address] MD MICROBIOLOGY - GENER AL ORDERABLES [facility] * PAP TEST (09/24/2018) 09/24/2018 09/25/2018 9:3 7 EST Narrative [facility] - 09/30/2018 15:53 EST ----- ------- Name: MARÍA ELENA FORD ? : [birth year] ?Age/Sex: 33/F ?Unit#: [id number] ? Loc: AGO ? Status: REG POV ?? Reg Date: 09/24/18 ? Pt.Phone Number: ? ----- ------- Specimen: [id number] ? STATUS: SOUT ?Spec Date:09/24/18 ? Physician Copies: ?Swati Lane MD ?? Tissues: ? Cervical/Endo Pap ?Georgie Stewart CPT: 13019 ?? Units: ??1 ----- ------- ? CYTOLOGY [...] confirmed the above diagnosis. Test Performed by [facility], [address] [place] [address] Dry Goods Clerk: Yee Hines MD PHD ----- ------- Swati Lane MD PATHOLOGY ORDERABLES Performing Organization Address City/State/[facility] Co de Phone Number [facility] documented in this encounter Visit Diagnoses Not on filedocumented in this encounter Care Teams Server Developer Relationship Specialty Start Date End Date Jose Hillman MD PCP - General 04/02/09 07/06/19 documented as of this encounter
--- OUTSIDE RECORDS SUMMARY | 2024-04-30 10:50 | XMS_ITS | Encounter Summary ---
Author Organization [facility] Address [address] [place] [address] Care Team Providers Care Mirror Department Supervisor Name Role Phone Jose Hillman MD Primary Care Provider Unav ailable Encounter Details Date Type Department Care Team (Late st Contact Info) Description 06/19/2016 Results Only [facility] Clinical Genetics - [place] [address] [place], [place] [id number] Opal Swift MD [address] [place] [address] Social History Tobacco Use Types [...] of Owen MantillaYI 08.30.2007 06/19/2016 19:42 EDT [facility] Comment Sent to [employer] for comparison purposes. 06/20/2016 11:39 EDT [facility] BLOOD SPECIMEN / Unknown 06/19/2016 19:41 EDT 06/19/2016 19:41 EDT Opal Swift MD LAB INFO SERVICE A ND SUPPORT & PHONE RESULT [facility] [address] [place] [address] documented in this encounter Visit Diagnoses Not on filedocumented in this encounter Care Teams Mirror Department Supervisor Relationship Specialty Start Date End Date Jose Hillman MD PCP - General 04/02/09 07/06/19 documented as of this encounter
--- OUTSIDE RECORDS SUMMARY | 2024-04-30 10:50 | XMS_ITS | Encounter Summary ---
Author Organization [facility] Address [address] [place] [address] Care Team Providers Care Anthropology Department Chair Name Role Phone Jose Hillman MD Primary Care Provider Unav ailable Encounter Details Date Type Department Care Team (Late st Contact Info) Description 09/30/2018 Historical Results Only [facility] Radiology Results [address] [place] [address] MD [address] [place] [address], [address] [place] [address] Social History Tobacco Use Types [...] CC: ? Transcribed Date/Time: 09/30/2018 (1155) ? Camp Tender: ? Printed Date/Time: 02/23/2019 (1217) ? PAGE [...] David Nguyen MD CC: Transcribed Date/Time: 09/30/2018 (7898) Camp Tender: Printed Date/Time: 02/23/2019 (4830) PAGE [address] MD [facility] ORDERABLES * MA BREAST DIAGNOSTIC JESUS RIGHT [...] CC: ? Transcribed Date/Time: 09/30/2018 (1155) ? Camp Tender: ? Printed Date/Time: 02/23/2019 (1217) ? PAGE [...] David Nguyen MD CC: Transcribed Date/Time: 09/30/2018 (7543) Camp Tender: Printed Date/Time: 02/23/2019 (3071) [address] MD IMG MAMMOGRAPHY JENNIFER MITCHELLARACELY documented in this encounter Visit Diagnoses Not on filedocumented in this encounter Care Teams Anthropology Department Chair Relationship Specialty Start Date End Date Jose Hillman MD PCP - General 04/02/09 07/06/19 documented as of this encounter
--- OUTSIDE RECORDS SUMMARY | 2024-04-30 10:50 | XMS_ITS | Encounter Summary ---
Author Organization [facility] Address [address] [place] [address] Care Team Providers Care Care Nurse Rn Name Role Phone Jose Hillman MD Primary Care Provider Unav Aric Chow MD Primary Care Provider Un available Encounter Details Date Type Department Care Team (Late st Contact Info) Description 10/11/2007 Results Only [facility] [place] [address] [place] [address] Abner Anand MD Social History Tobacco Use [...] MARÍA ELENA FORD ? Accession #: ? [id number] : ? 1985 (Age: 22) ??F ?Collect Date: ? 10/11/2007 Location: ? [facility] ? Receive Date: ? 10/14/2007 Provider: ?ABNER ANAND MD Copy to: ? Specimen/Source: ?ThinPrep Pap Test, Cervix/Endocervix, processed on [employer] ThinPrep Imaging System, with manual evaluation Last [...] PATHOLOGY ORDERABLES [facility] [address] [place] [address] documented in this encounter Visit Diagnoses Not on filedocumented in this encounter Care Teams Care Nurse Rn Relationship Specialty Start Date End Date Jose Hillman MD PCP - General 04/02/09 07/06/19 Aric Hurley MD PCP - General 01/13/09 04/01/09 documented as of this encounter
--- OUTSIDE RECORDS SUMMARY | 2024-04-30 10:50 | XMS_ITS | Encounter Summary ---
Author Organization [facility] Address [address] [place] [address] Care Team Providers Care Answering Service Operator Name Role Phone StewartGeorgie banda Pritesh MIRANDA Primary Care Provider + Reason for Visit * Reason Comments Pre-op Exam Encounter Details Date Type Department Care Team (Latest Contact Info) Description 07/23/2019 14:00 EST Office Visit [facility] [address] [place] [address] MD [address] [facility], [address] [place] [address] Dysfunctional uterine bleeding (Primary Dx); [...] Negative. Endo/Heme/Allergies: Negative. Psychiatric/Behavioral: Positive for depression. 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 Menses: irregular and heavy STI's: none Sexual activity: yes, with fpc male partner Contraception: female sterilization procedure Cervical [...] Allergies Allergen Reactions ??? Codeine Anaphylaxis ??? Pzeaxwt-Oig-Al-Acetaminophen Anaphylaxis ??? Sulfa (Sulfonamide Antibiotics) Anaphylaxis ??? Aspirin Other reaction(s): unsure of reaction ??? [place] And Derivatives Other reaction(s): rash and hives [...] 08/18/2019 added in this encounter Care Teams Answering Service Operator Relationship Specialty Start Date End Date Georgie Stewart APRN [address] [place] [id number] PCP - General 07/07/19 documented as of this encounter
--- OUTSIDE RECORDS SUMMARY | 2024-04-30 10:50 | XMS_ITS | Encounter Summary ---
Author Organization [facility] Address [address] [place] [address] Care Team Providers Care Electric Meter Technician Name Role Phone Jose Hillman MD Primary Care Provider Unav ailable Encounter Details Date Type Department Care Team (Latest Contact Info) Description 01/03/2019 11:18 EDT - 01/03/2019 23:59 EDT Hospital Encounter [facility] [address] [place] [address] Unknown, Provider, Discharge Disposition: Home or Self Care Social History Tobacco Use Types Packs/Day Years Used Date Smoking Tobacco: Never Assessed Sex and Gender Information Value Date Recorded Sex Assigned at Not on file Gender Identity Female 07/07/2019 11:20 EST Sexual Orientation Not on file documented as of this encounter Discharge Disposition Disposition Code Departure Means Destination Home or Self Half-Way documented in this encounter Plan of Treatment Not on file documented as of this encounter Visit Diagnoses Not on filedocumented in this encounter Care Teams Electric Meter Technician Relationship Specialty Start Date End Date Jose Hillman MD PCP - General 04/02/09 07/06/19 documented as of this encounter
--- OUTSIDE RECORDS SUMMARY | 2024-04-30 10:50 | XMS_ITS | Encounter Summary ---
Author Organization [facility] Address [address] [place] [address] Care Team Providers Care Incident Response Specialist Name Role Phone Jose Hillman MD Primary Care Provider Georgie Brennan APRN Primary Care Provider + Encounter Details Date Type Department Care Team (Late st Contact Info) Description 06/30/2019 Results Only [facility] Lab - Main [place] [address] [place] [address] MD [address] [place] [address], [address] [place] [address] Social History Tobacco Use Types Packs/Day Years Used Date Smoking Tobacco: Never Assessed Sex and Gender Information Value Date Recorded Sex Assigned at Not on file Gender Identity Female 07/07/2019 11:20 EST Sexual Orientation Not on file documented as of this encounter Plan of Treatment Not on file documented as of this encounter Procedures Procedure Name Priority Date/Time Associated Diagnosis Comments [facility] [place] - [facility] Routine 06/30/2019 11 :22 EDT COMPLETE BLOOD COUNT WITH DIFFERENTIAL (AUTO) Routine 06/30/2019 11:22 EDT TYPE AND SCREEN Routine 06/30/2019 11:22 EDT documented in this encounter Results * TYPE AND SCREEN (06/30/2019 11:22 EDT) [facility] TYPE - [facility] O Positive [facility] Antibody Screen NEGATIVE [facility] Specimen Expires: 07-21-19 [id number] [facility] 06/30/2019 11:2 2 EDT 06/30/2019 11:22 EDT Narrative [facility] - 06/30/2019 11:12 EDT Does PT Have a Latex Allergy? YES IS THIS A PREOPERATIVE PATIENT? N Swati Lane MD BLOOD BANK TESTS [facility] * BHCG SCREEN - CV (06/30/2019 11:22 EDT) [facility] - [facility] NEG 06/30/2019 11:43 EDT [facility] 06/30/2019 11:2 2 EDT 06/30/2019 11:22 EDT Narrative [facility] - 06/30/2019 11:43 EDT Does PT Have a Latex Allergy? YES Enter/Edit CPT and ICD codes? N Swati Lane MD HEMATOLOGY & PF4 ORD ERABLES [facility] * COMPLETE BLOOD COUNT WITH DIFFERENTIAL (AUTO) (06/30/2019 11:22 EDT) ABSOLUTE NEUTROPHIL COUN - [facility] 4.3 2.2 - 8.85 10e3/uL 06/30/2019 11:32 EDT [facility] BASO # - [facility] 0.05 0.01 - 0.11 10e/uL 06/30/2019 11:32 EDT [facility] BASO % - [facility] 1 0 - 2 % 06/30/2019 11:32 EDT [facility] EOS # - [facility] 0.16 0.03 - 0.61 10e3/ul 06/30/2019 11:32 EDT [facility] EOS % - [facility] 2 0 - 5 % 06/30/2019 11:32 EDT [facility] GRAN % - [facility] 58.7 40 - 80 % 06/30/2019 11:32 [facility] HEMATOCRIT - [facility] 38.3 34.9 - 44.4 % 06/30/2019 11:32 [facility] HEMOGLOBIN - [facility] 12.6 11.6 - 15.2 g/dl 06/30/2019 11:32 [facility] IG# - [facility] 0.02 0 - 0.7 10e3/uL 06/30/2019 11:32 [facility] IG% - [facility] 0.3 0 - 0.9 % 06/30/2019 11:32 [facility] LYMPH # - [facility] 2.3 1.09 - 3.3 10e3/ul 06/30/2019 11:32 [facility] LYMPH% - [facility] 31.7 20 - 40 % 06/30/2019 11:32 [facility] MEAN CORPUSCULAR HGB - [facility] 30.6 26.7 - 33.3 pg 06/30/2019 11:32 [facility] MEAN CORPUSCULAR HGB CONC - [facility] 32.9 32.1 - 35.9 g/dL 06/30/2019 11:32 [facility] MEAN CELL VOLUME - [facility] 93.0 81 - 98 fl 06/30/2019 11:32 [facility] MONO # - [facility] 0.5 0.1 - 0.8 10e3/uL 06/30/2019 11:32 [facility] MONO% - [facility] 6.4 0 - 12 % 06/30/2019 11:32 [facility] PLATELET COUNT 331 141 - 377 10e3/ul 06/30/2019 11:32 [facility] RED BLOOD COUNT - [facility] 4.12 3.86 - 5.04 10e3/ul 06/30/2019 11:32 [facility] RED CELL DISTRI WIDTH - [facility] 12.1 <14.7 % 06/30/2019 11:32 [facility] WHITE BLOOD COUNT - [facility] 7.4 4.0 - 12.4 10e3/ul 06/30/2019 11:32 [facility] 06/30/2019 11:2 2 EDT 06/30/2019 11:22 EDT Narrative [facility] - 06/30/2019 11:32 EDT Does PT Have a Latex Allergy? YES Swati Lane MD HEMATOLOGY & PF4 ORD ERABLES [facility] documented in this encounter Visit Diagnoses Not on filedocumented in this encounter Care Teams Incident Response Specialist Relationship Specialty Start Date End Date Jose Hillman MD PCP - General 04/02/09 07/06/19 Georgie Stewart, HIGH SCHOOL SOCIAL SCIENCE TEACHER [address] [place] [address] PCP - General 07/07/19 documented as of this encounter
--- OUTSIDE RECORDS SUMMARY | 2024-04-30 10:50 | XMS_ITS | Encounter Summary ---
Author Organization [facility] Address [address] [place] [address] Care Team Providers Care Manager Inventory Control Name Role Phone Jose Hillman MD Primary Care Provider Georgie Brennan APRN Primary Care Provider + Encounter Details Date Type Department Care Team (Late st Contact Info) Description 06/13/2019 Results Only [facility] - [facility] Lab - Main [address] [address] Flynn Smith MD [address] [place] [address] Social History Tobacco Use Types Packs/Day [...] 3.4 - 4.9 g/dL 06/13/2019 14:06 EDT [facility] ALKALINE PHOSPHATASE - [facility] 61 38 - 126 U/L 06/13/2019 14:06 EDT [facility] BILIRUBIN TOTAL 0.6 0.2 - 1.3 mg/dL 06/13/2019 14:06 [facility] BUN - [facility] 9(L) 10 - 26 mg/dL 06/13/2019 14:06 [facility] CALCIUM - [facility] 9.1 8.5 - 10.5 mg/dL 06/13/2019 14:06 [...] 14:06 [facility] GLUCOSE - [facility] 105(H) 70 - 100 mg/dL 06/13/2019 14:06 [facility] Potassium 3.5 3.5 - 5.0 mEq/L 06/13/2019 14:06 [facility] Sodium 142 136 - 145 mEq/L 06/13/2019 14:06 [facility] TOTAL PROTEIN - [facility] 7.2 6.2 - 8.2 gm/dL 06/13/2019 14:06 [facility] SGOT/AST - [facility] 27 14 - 36 U/L 06/13/2019 14:06 [facility] SGPT/ALT - [facility] 37 9 - 52 U/L 9 14:06 [facility] 06/13/2019 13:4 6 EDT 06/13/2019 13:49 EDT Flynn Smith MD CHEMISTRY & BLOOD GA S ORDERABLES [facility] documented in this encounter Visit Diagnoses Not on filedocumented in this encounter Care Teams Manager Inventory Control Relationship Specialty Start Date End Date Jose Hillman MD PCP - General 04/02/09 07/06/19 Georgie Stewart APRN [address] [place] [address] PCP - General 07/07/19 documented as of this encounter
--- OUTSIDE RECORDS SUMMARY | 2024-04-30 10:50 | XMS_ITS | Encounter Summary ---
Author Organization [facility] Address [address] [place] [address] Care Team Providers Care Working Foreman Name Role Phone Jose Hillman MD Primary Care Provider Georgie Brennan APRN Primary Care Provider + Encounter Details Date Type Department Care Team (Late st Contact Info) Description 07/01/2019 Results Only [facility] Lab - Main [place] [address] [place] [address] MD [address] [place] [address], [address] [place] [address] Social History Tobacco Use Types [...] (07/01/2019) 07/01/2019 07/01/2019 9:[address] [facility] - 07/04/2019 16:42 EDT ----- ------- Name: MARÍA ELENA FORD ? : [birth year] ?Age/Sex: 33/F ?Unit#: [id number] ? Loc: SDS ? Status: DEP SDC ?? Reg Date: 07/01/19 ? Pt.Phone Number: ? ----- ------- Specimen: [id number] ? STATUS: SOUT ?Spec Date:07/01/19 ? Physician Copies: ?Swati Lane MD ?? Tissues: A ?? Endometrial curettings ? Georgie Stewart CPT: 21763 ?? Units: ??1 ? [id number] ? 1 ?FINAL DIAGNOSIS ? ENDOMETRIUM, CURETTAGE; [...] reagents' performance characteristics have been determined by [facility] and/or by the referring laboratory. ??The positive and negative controls worked appropriately. If immunoperoxidase staining has been performed on alcohol fixed cytology specimens, which has not been fully validated, the assays should be interpreted with caution and correlated with clinical data. ??This laboratory is certified under the Clinical Laboratory Improvement Amendments of 1987 ----- ------- Patient: MARÍA ELENA FORD ? #[id number] ? (Continued) ----- ------- Specimen: [id number] ? Received: 07/01/19 ?(Continued) ?COMMENT ? (Continued) [...] confirmed the above diagnosis. Test Performed by [facility], [address] [place] [id number] Discharging Machine Operator: Yee Hines MD PHD ----- ------- Swati Lane MD PATHOLOGY ORDERABLES [facility] documented in this encounter Visit Diagnoses Not on filedocumented in this encounter Care Teams Working Foreman Relationship Specialty Start Date End Date Jose Hillman MD PCP - General 04/02/09 07/06/19 Georgie Stewart, SADDLE STITCHING MACHINE OPERATOR [address] [place] [address] PCP - General 07/07/19 documented as of this encounter
--- OUTSIDE RECORDS SUMMARY | 2024-04-30 10:50 | XMS_ITS | Encounter Summary ---
Author Organization [facility] Address [address] [place] [address] Care Team Providers Care Director Organizational Name Role Phone StewartGeorgie banda Pritesh SLEEVE FIXER Primary Care Provider + Encounter Details Date Type Department Care Team (Late st Contact Info) Description 08/18/2019 Results Only [facility] [phone] MD [address] [place] [address], [address] [place] [address] Social History Tobacco Use Types [...] - [facility] (08/18/2019 14:53 EST) HEMATOCRIT - [facility] 36.7 34.9 - 44.4 % 08/18/2019 15:03 EST [facility] HEMOGLOBIN - [facility] 11.8 11.6 - 15.2 g/dl 08/18/2019 15:03 EST [facility] 08/18/2019 14:5 3 EST 08/18/2019 14:[address] MD CHEMISTRY & BLOOD GA S ORDERABLES [facility] * SURGICAL PATHOLOGY (08/18/2019) 08/18/2019 08/18/2019 13: 00 EST Narrative [facility] - 08/21/2019 10:15 EST ----- ------- Name: MARÍA ELENA FORD Pritesh ? : 81 ?Age/Sex: 34/F ?Unit#: [id number] ? Loc: SDS ? Status: DEP SDC ?? Reg Date: 08/18/19 ? Pt.Phone Number: ? ----- ------- Specimen: [id number] ? STATUS: SOUT ?Spec Date:08/18/19 ? Physician Copies: ?Swati Lane MD ?? Tissues: A ?? Uterus other than neoplastic (UTERUS, CERVIX, BILATERAL TU) ??Georgie Stewart CPT: 25968 ?? Units: ??1 ?FINAL DIAGNOSIS ? UTERUS, [...] ----- ------- Patient: MARÍA ELENA FORD ? #[id number] ? (Continued) ----- ------- Specimen: [id number] ? Received: 08/18/19-1300 ?(Continued) ? GROSS DESCRIPTION ?(Continued) ? cortical cysts ranging from 0.1 cm to 0.7 cm in greatest dimension. ??Serial ? sections of the right fallopian tube reveals a pinpoint lumen. ??Serial sections ? of the left fallopian tube also reveal a pinpoint lumen. ??[facility] ? section sections are submitted as follows: [...] confirmed the above diagnosis. Test Performed by [facility], [address] [place] [id number] Insulation Worker Apprentice: Yee Hines MD PHD ----- ------- Swati Lane MD PATHOLOGY ORDERABLES [facility] documented in this encounter Visit Diagnoses Not on filedocumented in this encounter Care Teams Director Organizational Relationship Specialty Start Date End Date Georgie Stewart, SLEEVE FIXER [address] [facility] [place] [address] PCP - General 07/07/19 documented as of this encounter
--- OUTSIDE RECORDS SUMMARY | 2024-04-30 10:50 | XMS_ITS | Encounter Summary ---
Author Organization [facility] Address [address] [place] [address] Care Team Providers Care Expenditure Requisition Clerk Name Role Phone Jose Hillman MD Primary Care Provider Unav Aric Chow MD Primary Care Provider Un available Encounter Details Date Type Department Care Team (Late st Contact Info) Description 02/05/2007 Results Only [facility] - Maple conversion [address] [place] [address] Unknown, Provider, Social History Tobacco Use Types [...] trachomatis or Neisseria gonorrhoeae DNA detected by manager banquet mediated amplification. [facility] Report Status Final [id number] [facility] 02/05/2007 13:2 9 EDT 02/05/2007 22:42 EDT Provider Unknown MICROBIOLOGY - GENER AL ORDERABLES [facility] [address] [place] [address] documented in this encounter Visit Diagnoses Not on filedocumented in this encounter Care Teams Expenditure Requisition Clerk Relationship Specialty Start Date End Date Jose Hillman MD PCP - General 04/02/09 07/06/19 Aric Hurley MD PCP - General 01/13/09 04/01/09 documented as of this encounter
--- OUTSIDE RECORDS SUMMARY | 2024-04-30 10:50 | XMS_ITS | Encounter Summary ---
Author Organization [facility] Address [address] [place] [address] Care Team Providers Care Vice President Supply Chain Name Role Phone Jose Hillman MD Primary Care Provider Georgie Brennan APRN Primary Care Provider + Encounter Details Date Type Department Care Team (Late st Contact Info) Description 06/19/2019 Results Only Imaging [facility] Radiology Results [address] [place], [place] [id number] Niranjan Oliver MD [address] [place] [address] Social History Tobacco Use Types [...] 06/19/2019 9:32 EDT ? EXAM: ULTRASOUND/TRANSVAGINAL - DESIGN INSERTER ? EX. D/ (0855) ? CLINICAL INFORMATION: ? Persitent VB ? TRANSVAGINAL - DESIGN INSERTER ? Signs and Symptoms/Comments: ??Persitent VB ? [...] MD ? Transcribed Date/Time: 06/19/2019 (09) ? Reception Clerk: ? Printed Date/Time: 06/19/2019 (931) ? PAGE 2 ? Signed Report ? Procedure Note David Nguyen E - 07/12/2019 EXAM: ULTRASOUND/TRANSVAGINAL - DESIGN INSERTER EX. D/ (0855) CLINICAL INFORMATION: Persitent VB TRANSVAGINAL - DESIGN INSERTER Signs and Symptoms/Comments: Persitent VB Comparison: None [...] CC: Niranjan Oliver MD Transcribed Date/Time: 06/19/2019 (94) Reception Clerk: Printed Date/Time: 06/19/2019 (3525) PAGE 2 Signed Report Niranjan Oliver MD IMG US OB ORDERA BLES documented in this encounter Visit Diagnoses Not on filedocumented in this encounter Care Teams Vice President Supply Chain Relationship Specialty Start Date End Date Jose Hillman MD PCP - General 04/02/09 07/06/19 Georgie Stewart, STRIPPER COLOR 4 [facility] [place] [phone] PCP - General 07/07/19 documented as of this encounter
--- OUTSIDE RECORDS SUMMARY | 2024-04-30 10:50 | XMS_ITS | Encounter Summary ---
Author Organization [facility] Address [address] [place] [address] Care Team Providers Care Hand Engraver Name Role Phone Jose Hillman MD Primary Care Provider Georgie Brennan APRN Primary Care Provider + Encounter Details Date Type Department Care Team (Late st Contact Info) Description 06/13/2019 Results Only [facility] - Main [address] [address] Flynn Smith MD [address] [place] [address] Social History Tobacco Use Types Packs/Day [...] Procedures Procedure Name Priority Date/Time Associated Diagnosis [facility] [place] [facility] Routine 06/13/2019 13:46 EDT COMPLETE BLOOD COUNT WITH DIFFERENTIAL (AUTO) Routine 06/13/2019 13:46 EDT URINE MICROSCOPIC Routine 06/13/2019 13: 30 EDT URINE CHEMICAL (DIP) & SEDIMENT (MICRO) WITHOUT REFLEX TO CULTURE Routine 06/13/2019 13:30 EDT documented in this encounter Results * (ABNORMAL) COMPLETE BLOOD COUNT WITH DIFFERENTIAL (AUTO) (06/13/2019 13:46 EDT) ABSOLUTE NEUTROPHIL COUN - [facility] 3.0 2.2 - 8.85 10e3/uL 06/13/2019 14:33 [facility] BASO # - [facility] 0.04 0.01 - 0.11 10e/uL 06/13/2019 14:33 [facility] BASO % - [facility] 1 0 - 2 % 06/13/2019 14:33 [facility] EOS # - [facility] 0.12 0.03 - 0.61 10e3/ul 06/13/2019 14:33 [facility] EOS % - [facility] 2 0 - 5 % 06/13/2019 14:33 [facility] GRAN % - [facility] 54.9 40 - 80 % 06/13/2019 14:33 [facility] HEMATOCRIT - [facility] 40.7 34.9 - 44.4 % 06/13/2019 14:33 [facility] HEMOGLOBIN - [facility] 13.7 11.6 - 15.2 g/dl 06/13/2019 14:33 [facility] IG# - [facility] 0.03 0 - 0.7 10e3/uL 06/13/2019 14:33 [facility] IG% - [facility] 0.5 0 - 0.9 % 06/13/2019 14:33 [facility] LYMPH # - [facility] 1.6 1.09 - 3.3 10e3/ul 06/13/2019 14:33 [facility] LYMPH% - [facility] 29.2 20 - 40 % 06/13/2019 14:33 [facility] MEAN CORPUSCULAR HGB - [facility] 30.6 26.7 - 33.3 pg 06/13/2019 14:33 [facility] MEAN CORPUSCULAR HGB CONC - [facility] 33.7 32.1 - 35.9 g/dL 06/13/2019 14:33 [facility] MEAN CELL VOLUME - [facility] 90.8 81 - 98 fl 06/13/2019 14:33 EDT [facility] MONO # - [facility] 0.7 0.1 - 0.8 10e3/uL 06/13/2019 14:33 EDT [facility] MONO% - [facility] 12.5(H) 0 - 12 % 06/13/2019 14:33 EDT [facility] PLATELET COUNT 243 141 - 377 10e3/ul 06/13/2019 14:33 EDT [facility] RED BLOOD COUNT - [facility] 4.48 3.86 - 5.04 10e3/ul 06/13/2019 14:33 EDT [facility] RED CELL DISTRI WIDTH - [facility] 12.0 <14.7 % 06/13/2019 14:33 EDT [facility] WHITE BLOOD COUNT - [facility] 5.5 4.0 - 12.4 10e3/ul 06/13/2019 14:33 EDT [facility] 06/13/2019 13:4 6 EDT 06/13/2019 13:49 EDT Flynn Smith MD HEMATOLOGY & PF4 ORD ERABLES [facility] * [facility] (06/13/2019 13:46 EDT) [facility] 93 <251 U/L 06/13/2019 14:06 EDT [facility] 06/13/2019 13:4 6 EDT 06/13/2019 13:49 EDT Flynn Smith MD CHEMISTRY & BLOOD GA S ORDERABLES [facility] * URINE MICROSCOPIC (06/13/2019 13:30 EDT) URINE APPEARANCE - [facility] Cloudy CLEAR 06/13/2019 13:54 EDT [facility] URINE BACTERIA - [facility] FEW 06/13/2019 13:57 EDT [facility] URINE COLOR - [facility] Red YELLOW 2018 13:54 EDT [facility] Comment: Abnormal urine color may interfere with interpretation of the urinalysis reagent test strips. Urinalysis order has been reflexed to Urine Microscopic due to color interference. URINE RBC - [facility] TNTC rbc/hpf 06/13/20 13:57 EDT [facility] URCULTIF+? - [facility] Culture Ordered 06/13/2019 13:57 EDT [facility] URINE SQUAMOUS CELLS - [facility] FEW NEG #/hpf 06/13/2019 13:57 EDT [facility] URINE WBC - [facility] 5-10 NEG wbc/hpf 06/13/2019 13:57 EDT [facility] 06/13/2019 13:3 0 EDT 06/13/2019 13:42 EDT Flynn Smith MD URINALYSIS ORDERABLE S [facility] documented in this encounter Visit Diagnoses Not on filedocumented in this encounter Care Teams Hand Engraver Relationship Specialty Start Date End Date Jose Hillman MD PCP - General 04/02/09 07/06/19 Georgie Stewart, TRUCK BODY REPAIRER [address] [place] [address] PCP - General 07/07/19 documented as of this encounter
--- OUTSIDE RECORDS SUMMARY | 2024-04-30 10:50 | XMS_ITS | Encounter Summary ---
Author Organization [facility] Address [address] [place] [address] Care Team Providers Care Community Health Nurse Staff Name Role Phone StewartGeorgie banda Pritesh MIRANDA Primary Care Provider + Encounter Details Date Type Department Care Team (Late st Contact Info) Description 08/19/2019 Results Only [facility] [phone] MD [address] [place] [address], [address] [place] [address] Social History Tobacco Use Types [...] [facility] (08/19/2019 12:04 EST) URINE APPEARANCE - [facility] Cloudy CLEAR 08/19/2019 12:31 [facility] URINE BACTERIA - CV MANY 08/19/2019 12:57 [facility] URINE BILIRUBIN - DIPSTICK - [facility] Negative NEGATIVE 08/19/2019 12:31 [facility] URINE BLOOD - [facility] 3+ NEG 08/19/2019 12:31 [facility] URINE COLOR - [facility] Yellow YELLOW 08/19/2019 12:31 [facility] URINE GLUCOSE - DIPSTICK - [facility] Negative NEGATIVE 08/19/2019 12:31 [facility] URINE KETONE - CV Negative NEGATIVE 08/19/2019 12:31 [facility] URINE LEUK ESTERASE - [facility] 3+ NEG 08/19/2019 12:31 [facility] URINE NITRITE - DIPSTICK - [facility] Negative NEG 08/19/2019 12:31 [facility] URINE PH - [facility] 7.0 4.0 - 8.0 9 12:31 [facility] URINE PROTEIN - DIPSTICK - CV Negative NEG 08/19/2019 12:31 [facility] URINE RBC - [facility] TNTC rbc/hpf 08/19/2019 12:57 [facility] URCULTIF+? - CV Contaminated 08/19/2019 12:57 [facility] Comment: Specimen contaminated. Please recollect a clean catch sample if a culture is indicated. URINE SPECIFIC GRAVITY - [facility] <=1.005 1.001 - 1.035 08/19/2019 12:31 [facility] URINE SQUAMOUS CELLS - [facility] TNTC NEG #/hpf 08/19/2019 12:57 [facility] URINE UROBILINOGEN - DIP[place]ICK - [facility] 0.2 0.2 - 1.0 08/19/2019 12:31 [facility] URINE WBC - [facility] 5-10 NEG wbc/hpf 08/19/2019 12:57 [facility] 08/19/2019 12:0 4 EST 08/19/2019 12:18 EST [facility] - 08/19/2019 12:57 EST Does PT Have a Latex Allergy? YES Gold Villar MD CHEMISTRY & BLOOD GA S ORDERABLES [facility] * (ABNORMAL) BASIC METABOLIC PANEL (BMP) (08/19/2019 2:20 EST) BUN - [facility] 9(L) 10 - 26 mg/dL 08/19/2019 2:49 [facility] CALCIUM - [facility] 8.6 8.5 - 10.5 mg/dL 08/19/2019 2:49 [facility] Chloride 107 96 - 110 mmol/L 08/19/2019 2:49 [facility] CO2 Total 22 22 - 32 mEq/L 08/19/2019 2:49 [facility] CREATININE 0.77 0.52 - 1.04 mg/dL 08/19/2019 2:49 [facility] eGFR >60 08/19/2019 2:49 [facility] Comment: Chronic renal impairment is defined as GFR <60 Multiply result by 1.210 for patients. eGFR calculated using the IDMS-traceable MDRD Study Equation. ??(effective 07/06/2014) Anion Gap 9 0 - 18 08/19/2019 2:49 [facility] GLUCOSE - [facility] 123(H) 70 - 100 mg/dL 08/19/2019 2:49 [facility] Potassium 3.4(L) 3.5 - 5.0 mEq/L 08/19/2019 2:49 [facility] Sodium 138 136 - 145 mEq/L 08/19/2019 2:49 [facility] 08/19/2019 2:20 EST 08/19/2019 2:[address] MD CHEMISTRY & BLOOD GA S ORDERABLES [facility] * (ABNORMAL) COMPLETE BLOOD COUNT WITH DIFFERENTIAL (AUTO) (08/19/2019 2:20 EST) ABSOLUTE NEUTROPHIL COUN - [facility] 6.2 2.2 - 8.85 10e3/uL 08/19/2019 2:37 [facility] BASO # - [facility] 0.02 0.01 - 0.11 10e/uL 08/19/2019 2:37 [facility] BASO % - [facility] 0 0 - 2 % 08/19/2019 2:37 [facility] EOS # - [facility] 0.06 0.03 - 0.61 10e3/ul 08/19/2019 2:37 [facility] EOS % - [facility] 1 0 - 5 % 08/19/2019 2:37 [facility] GRAN % - [facility] 68.1 40 - 80 % 08/19/2019 2:37 [facility] HEMATOCRIT - [facility] 33.0(L) 34.9 - 44.4 % 08/19/2019 2:37 [facility] HEMOGLOBIN - [facility] 10.6(L) 11.6 - 15.2 g/dl 08/19/2019 2:37 [facility] IG# - [facility] 0.04 0 - 0.7 10e3/uL 08/19/2019 2:37 [facility] IG% - [facility] 0.4 0 - 0.9 % 08/19/2019 2:37 [facility] LYMPH # - [facility] 1.9 1.09 - 3.3 10e3/ul 08/19/2019 2:37 [facility] LYMPH% - [facility] 21.3 20 - 40 % 08/19/2019 2:37 [facility] MEAN CORPUSCULAR HGB - [facility] 28.4 26.7 - 33.3 pg 08/19/2019 2:37 [facility] MEAN CORPUSCULAR HGB CONC - [facility] 32.1 32.1 - 35.9 g/dL 08/19/2019 2:37 [facility] MEAN CELL VOLUME - [facility] 88.5 81 - 98 fl 08/19/2019 2:37 [facility] MONO # - [facility] 0.8 0.1 - 0.8 10e3/uL 08/19/2019 2:37 [facility] MONO% - [facility] 9.3 0 - 12 % 08/19/2019 2:37 [facility] PLATELET COUNT 264 141 - 377 10e3/ul 08/19/2019 2:37 [facility] RED BLOOD COUNT - [facility] 3.73(L) 3.86 - 5.04 10e3/ul 08/19/2019 2:37 [facility] RED CELL DISTRI WIDTH - [facility] 12.3 <14.7 % 08/19/2019 2:37 [facility] WHITE BLOOD COUNT - [facility] 9.0 4.0 - 12.4 10e3/ul 08/19/2019 2:37 [facility] 08/19/2019 2:20 EST 08/19/2019 2:[address] MD HEMATOLOGY & PF4 ORD ERABLES [facility] Organization Address City/State/ZIP Co de Phone Number [facility] documented in this encounter Visit Diagnoses Not on filedocumented in this encounter Care Teams Community Health Nurse Staff Relationship Specialty Start Date End Date Georgie Stewart, ORNAMENTAL IRON WORKER [address] [place] [address] PCP - General 07/07/19 documented as of this encounter
--- OUTSIDE RECORDS SUMMARY | 2024-04-30 10:50 | XMS_ITS | Encounter Summary ---
Author Organization [facility] Address [address] [place] [address] Care Team Providers Care Scientist/Engineer Name Role Phone Aric Hurley MD Primary Care Provider Un available Encounter Details Date Type Department Care Team (Late st Contact Info) Description 11/02/2008 Before PRISM Converted Visit (Maple) [facility] Adult Primary Care - [address] [id number] Unknown, Provider, Social History Tobacco Use Types [...] 17:20 EST) Specimen Description Cervix [facility] Result No Chlamydia trachomatis DNA detected by production control manager mediated amplification. [facility] Result No Neisseria gonorrhoeae DNA detected by production control manager mediated amplification. [facility] 11/02/2008 17:2 0 EST 11/02/2008 23:10 EST Provider Unknown MD MICROBIOLOGY - GENER AL ORDERABLES [facility] [address] [address] * CYTOPATHOLOGY (11/02/2008 0:00 EST) Pathology Report: CYTOPATHOLOGY REPORT ? Reports generated via electronic interface contain original data; ? however they are lacking the format of the original report. ? Caution should be taken when reading/interpreti ng unformatted reports. ? Name: ? MARÍA ELENA FORD ? Accession #: ? [id number] ? : ? 1985 (Age: 23) ??F [...] reviewed and electronically signed by: ? Genny Dubois, CT(ASCP) ? Report Date: ??11/05/2008 12:46 ? End of Report ? [facility] 11/02/2008 11/03/2008 Abner Royal MD PATHOLOGY ORDERABLES [facility] [address] [place] [address] documented in this encounter Visit Diagnoses Not on filedocumented in this encounter Care Teams Scientist/Engineer Relationship Specialty Start Date End Date Aric Hurley MD PCP - General 01/13/09 04/01/09 documented as of this encounter
--- OUTSIDE RECORDS SUMMARY | 2024-04-30 10:50 | XMS_ITS | Encounter Summary ---
Author Organization [facility] Address [address] [place] [address] Care Team Providers Care Senior Interaction Designer Name Role Phone Jose Hillman MD Primary Care Provider Unav ailable Encounter Details Date Type Department Care Team (Late st Contact Info) Description 03/19/2019 Historical Results Only [facility] - Main [place] [address] [place] [address] MD [address] [place] [address], [address] [place] [address] Social History Tobacco Use Types [...] (03/19/2019) 03/19/2019 03/19/2019 11: 03 EDT Narrative [facility] - 03/20/2019 17:14 EDT ----- ------- Name: LILIANA,MARÍA ELENA ? : [birth year] ?Age/Sex: 33/F ?Unit#: [id number] ? Loc: SDS ? Status: DEP SDC ?? Reg Date: 03/19/19 ? Pt.Phone Number: ? ----- ------- Specimen: [id number] ? STATUS: SOUT ?Spec Date:03/19/19 ? Physician Copies: ?Swati Lane MD ?? Tissues: A ?? Endometrium, polyp ? Georgie Stewart ? B ?? Endometrium, curettings ? C ?? Endocervix, polyp ? CPT: 95407 ?? Units: ??3 ?FINAL DIAGNOSIS ? A. [...] ----- ------- Patient: MARÍA ELENA FORD ? #[id number] ? (Continued) ----- ------- Specimen: [id number] ? Received: 03/19/19 ?(Continued) ? GROSS DESCRIPTION [...] confirmed the above diagnosis. Test Performed by [facility], [address] [place] [address] Diamond Mounter: Yee Hines MD PHD ----- ------- Swati Lane MD PATHOLOGY ORDERABLES [facility] documented in this encounter Visit Diagnoses Not on filedocumented in this encounter Care Teams Senior Interaction Designer Relationship Specialty Start Date End Date Jose Hillman MD PCP - General 04/02/09 07/06/19 documented as of this encounter
--- OUTSIDE RECORDS SUMMARY | 2024-04-30 10:50 | XMS_ITS | Encounter Summary ---
Author Organization [facility] Address [address] [place] [address] Care Team Providers Care Animal Services Officer Name Role Phone Jose Hillman MD Primary Care Provider Unav Aric Chow MD Primary Care Provider Un available Encounter Details Date Type Department Care Team (Late st Contact Info) Description 02/22/2006 Results Only [facility] - Maple conversion [address] [place] [address] Abner Anand MD Social History Tobacco Use [...] MARÍA ELENA FORD ? Accession #: ? [id number] : ? 1985 (Age: 20) ??F ?Collect Date: ? 02/22/2006 Location: ? [facility] ? Receive Date: ? 02/23/2006 Provider: ?ABNER ANAND MD Copy to: ? Specimen/Source: ?ThinPrep Pap Test, Cervix/Endocervix, processed on [employer] ThinPrep Imaging System, with manual evaluation Last [...] Anand MD PATHOLOGY ORDERABLES Performing Organization Address City/State/[facility] Co de Phone Number [facility] [address] [place] [address] documented in this encounter Visit Diagnoses Not on filedocumented in this encounter Care Teams Animal Services Officer Relationship Specialty Start Date End Date Jose Hillman MD PCP - General 04/02/09 07/06/19 Aric Hurley MD PCP - General 01/13/09 04/01/09 documented as of this encounter
--- OUTSIDE RECORDS SUMMARY | 2024-04-30 10:50 | XMS_ITS | Encounter Summary ---
Author Organization [facility] Address [address] [place] [address] Care Team Providers Care Oracle Consultant Name Role Phone StewartGeorgie banda Pritesh MIRANDA Primary Care Provider + Encounter Details Date Type Department Care Team (Late st Contact Info) Description 08/15/2019 Results Only [facility]- [facility] [place] [phone] MD [address] [place] [address], [address] [place] [address] Social History Tobacco Use Types [...] Procedure Name Priority Date/Time Associated Diagnosis Comments [facility] Routine 08/15/2019 7: 32 EST COMPLETE BLOOD COUNT WITH DIFFERENTIAL (AUTO) Routine 08/15/2019 7:32 EST TYPE AND SCREEN Routine 08/15/2019 7:32 EST documented in this encounter Results * TYPE AND SCREEN (08/15/2019 7:32 EST) [facility] O Positive [facility] Antibody Screen NEGATIVE [facility] Specimen Expires: 08/18/19 AT 23:59 [facility] Comment: PATIENT'S RESPONSES INDICATE A HISTORY OF SURGERY, TRANSFUSION OR WITHIN THE LAST 3 MONTHS. FOR BLOOD PRODUCTS, THIS SPECIMEN WILL OUTDATE 72 HOURS FROM THE TIME IT WAS COLLECTED. ??ANY BLOOD PRODUCTS ORDERED AFTER 72 HOURS MUST BE WORKED UP ON A NEW SPECIMEN. 08/15/2019 7:32 EST 08/15/2019 7:[address] [facility] - 08/15/2019 7:26 EST Does PT Have a Latex Allergy? YES IS THIS A PREOPERATIVE PATIENT? N Swati Lane MD BLOOD BANK TESTS [facility] * [facility] (08/15/2019 7:32 EST) [facility] NEG 08/15/2019 9:[address] [facility] 08/15/2019 7:32 EST 08/15/2019 7:[address] [facility] - 08/15/2019 9:28 EST Does PT Have a Latex Allergy? YES Enter/Edit CPT and ICD codes? N Swati Lane MD HEMATOLOGY & PF4 ORD ERABLES [facility] * (ABNORMAL) COMPLETE BLOOD COUNT WITH DIFFERENTIAL (AUTO) (08/15/2019 7:32 EST) ABSOLUTE NEUTROPHIL COUN - [facility] 2.7 2.2 - 8.85 10e3/uL 08/15/2019 8:48 [facility] BASO # - [facility] 0.04 0.01 - 0.11 10e/uL 08/15/2019 8:48 [facility] BASO % - [facility] 1 0 - 2 % 08/15/2019 8:48 [facility] EOS # - [facility] 0.08 0.03 - 0.61 10e3/ul 08/15/2019 8:48 [facility] EOS % - [facility] 2 0 - 5 % 08/15/2019 8:48 [facility] GRAN % - [facility] 56.7 40 - 80 % 08/15/2019 8:48 [facility] HEMATOCRIT - [facility] 40.7 34.9 - 44.4 % 08/15/2019 8:48 [facility] HEMOGLOBIN - [facility] 13.0 11.6 - 15.2 g/dl 08/15/2019 8:48 [facility] IG# - [facility] 0.02 0 - 0.7 10e3/uL 08/15/2019 8:48 [facility] IG% - [facility] 0.4 0 - 0.9 % 08/15/2019 8:48 [facility] LYMPH # - [facility] 1.4 1.09 - 3.3 10e3/ul 08/15/2019 8:48 [facility] LYMPH% - [facility] 29.4 20 - 40 % 08/15/2019 8:48 [facility] MEAN CORPUSCULAR HGB - [facility] 27.8 26.7 - 33.3 pg 08/15/2019 8:48 [facility] MEAN CORPUSCULAR HGB CONC - [facility] 31.9(L) 32.1 - 35.9 g/dL 08/15/2019 8:48 [facility] MEAN CELL VOLUME - [facility] 87.0 81 - 98 fl 08/15/2019 8:48 [facility] MONO # - [facility] 0.5 0.1 - 0.8 10e3/uL 08/15/2019 8:48 [facility] MONO% - [facility] 11.0 0 - 12 % 08/15/2019 8:48 [facility] PLATELET COUNT 297 141 - 377 10e3/ul 08/15/2019 8:48 [facility] RED BLOOD COUNT - [facility] 4.68 3.86 - 5.04 10e3/ul 08/15/2019 8:48 [facility] RED CELL DISTRI WIDTH - [facility] 12.3 <14.7 % 08/15/2019 8:48 [facility] WHITE BLOOD COUNT - [facility] 4.8 4.0 - 12.4 10e3/ul 08/15/2019 8:48 [facility] 08/15/2019 7:32 EST 08/15/2019 7:[address] [facility] - 08/15/2019 8:48 EST Does PT Have a Latex Allergy? YES Swati Lane MD HEMATOLOGY & PF4 ORD ERABLES [facility] Organization Address City/State/ZIP Co de Phone Number [facility] documented in this encounter Visit Diagnoses Not on filedocumented in this encounter Care Teams Oracle Consultant Relationship Specialty Start Date End Date Georgie Stewart, ENVIRONMENTAL PLANNER [address] [place] [address] PCP - General 07/07/19 documented as of this encounter
--- OUTSIDE RECORDS SUMMARY | 2024-04-30 10:50 | XMS_ITS | Encounter Summary ---
Author Organization [facility] Address [address] [place] [address] Care Team Providers Care Archaeology Professor Name Role Phone Jose Hillman MD Primary Care Provider Georgie Brennan APRN Primary Care Provider + Encounter Details Date Type Department Care Team (Late st Contact Info) Description 06/13/2019 Results Only Imaging [facility] - [facility] Radiology Results [address] [place] [address] Flynn Smith MD [address] [place] [address] Social History Tobacco Use Types [...] noncritical result requiring ? follow-up on the [employer] findings application, to be tracked by ? the [employer] tracking system. ? REPORT SIGNED IN OTHER VENDOR SYSTEM 06/13/2019 ?Reported By: Lexx Arias MD ? CC: ? Transcribed Date/Time: 06/13/2019 (1513) ? Police Shift Commander: ? Printed Date/Time: 06/13/2019 (1513) ? PAGE 1 ? Signed Report ? Procedure Note Lexx Arias MD - 07/12/2019 EXAM: CAT SCAN/ABDOMEN PELVIS W/WO CONTRA EX. D/ (3233) CLINICAL INFORMATION: INDICATION: Question bladder infection.. COMPARISON: [...] a noncritical result requiring follow-up on the [employer] PACS findings application, to be tracked by the [facility] tracking system. REPORT SIGNED IN OTHER VENDOR SYSTEM 06/13/2019 Reported By: Lexx Arias MD CC: Transcribed Date/Time: 06/13/2019 (1513) Police Shift Commander: Printed Date/Time: 06/13/2019 (1513) PAGE 1 Signed Report Flynn Smith MD IMG CT ORDERABLES documented in this encounter Visit Diagnoses Not on filedocumented in this encounter Care Teams Archaeology Professor Relationship Specialty Start Date End Date Jose Hillman MD PCP - General 04/02/09 07/06/19 Georgie Stewart APRN [address] [place] [address] PCP - General 07/07/19 documented as of this encounter
--- OUTSIDE RECORDS SUMMARY | 2024-04-30 10:50 | XMS_ITS | Encounter Summary ---
Author Organization [facility] Address [address] [place] [address] Care Team Providers Care Armed Security Guard Name Role Phone Jose Hillman MD Primary Care Provider Unav Aric Chow MD Primary Care Provider Un available Encounter Details Date Type Department Care Team (Late st Contact Info) Description 04/12/2006 Results Only [facility] - Maple conversion [address] [place] [address] Unknown, Provider, Social History Tobacco Use Types [...] BLOOD GA S ORDERABLES Performing Organization Address [facility] Co de Phone Number [place] [address] * SYPHILIS SERO (RPR) (04/12/2006 9:34 EDT) Syphilis Sero (RPR) NONREACT. NR Dils [facility] 04/12/2006 9:34 EDT 04/12/2006 22:15 EDT Provider Unknown IMMUNOLOGY AND SEROL OGY ORDERABLES Performing Organization Address [facility] de Phone Number [facility] [address] [address] * HEPATITIS B SURFACE ANTIGEN (04/12/2006 9:34 EDT) Hepatitis B Surface Ag Neg [facility] 04/12/2006 9:34 EDT 04/12/2006 22:15 EDT Provider Unknown CHEMISTRY & BLOOD GA S ORDERABLES Performing Organization Address [facility] Co de Phone Number [facility] [address] [address] documented in this encounter Visit Diagnoses Not on filedocumented in this encounter Care Teams Armed Security Guard Relationship Specialty Start Date End Date Jose Hillman MD PCP - General 04/02/09 07/06/19 Aric Hurley MD PCP - General 01/13/09 04/01/09 documented as of this encounter
--- OUTSIDE RECORDS SUMMARY | 2024-04-30 10:50 | XMS_ITS | Encounter Summary ---
Author Organization [facility] Address [address] [place] [address] Care Team Providers Care Pinion Staker Name Role Phone Unavailable Primary Care Provider Unavailabl e Encounter Details Date Type Department Care Team (Latest Contact Info) Description 09/22/2002 14:14 EST Hospital Encounter [facility] - Other [address] [place] [address] Abner Royal MD Unknown, Provider, Discharge Disposition: [...] MARÍA ELENA FORD ? Accession #: ? [id number] : ? 1985 (Age: 17) ??F ?Collect [...] PATHOLOGY ORDERABLES [facility] [address] [place] [address] documented in this encounter Visit Diagnoses Not on filedocumented in this encounter
--- OUTSIDE RECORDS SUMMARY | 2024-04-30 10:50 | XMS_ITS | Encounter Summary ---
Author Organization [facility] Address [address] [place] [address] Care Team Providers Care Bundling Machine Operator Name Role Phone Aric Hurley MD Primary Care Provider Un available Encounter Details Date Type Department Care Team (Late st Contact Info) Description 09/08/2008 Before PRISM Converted Visit (Maple) [facility] Adult Primary Care - [address] [phone] Unknown, Provider, Social History Tobacco Use Types [...] BLOOD GA S ORDERABLES Performing Organization Address City/[facility] Co de Phone Number [facility] [address] [place] [address] * FSH (09/08/2008 13:46 EST) FSH 8.8 mIU/ml [facility] Comment: Follicular: 2-11 Mid-Cycle Peak: 3.4-35 Luteal: 1-9 Postmenopausal: 25-120 09/08/2008 13:4 6 EST 09/08/2008 22:23 EST Provider Unknown CHEMISTRY & BLOOD GA S ORDERABLES Performing Organization Address [facility] Co de Phone Number [facility] [address] [place] [address] * LH (09/08/2008 13:46 EST) LH 15.8 mIU/ml [facility] Comment: Follicular: 1-18 Mid-Cycle Peak: 15-80 Luteal: 0.5-18 Postmenopausal: 12-55 09/08/2008 13:4 6 EST 09/08/2008 22:23 EST Provider Unknown CHEMISTRY & BLOOD GA S ORDERABLES Performing Organization Address City/[facility] Co de Phone Number [facility] [address] [place] [address] documented in this encounter Visit Diagnoses Not on filedocumented in this encounter Care Teams Bundling Machine Operator Relationship Specialty Start Date End Date Aric Hurley MD PCP - General 01/13/09 04/01/09 documented as of this encounter
--- OUTSIDE RECORDS SUMMARY | 2024-04-30 10:50 | XMS_ITS | Encounter Summary ---
Author Organization [facility] Address [address] [place] [address] Care Team Providers Care Revenue Cycle Manager Name Role Phone Georgie Stewart APRN Primary Care Provider + Reason for Visit * Reason Onset Date Comments Other 07/14/2019 surgery date? Encounter Details Date Type Department Care Team (Late st Contact Info) Description 07/14/2019 Telephone [facility] [address] [place] [address] MD [address] [facility], [address] [place] [address] Other (surgery date? ) Social History Tobacco Use Types Packs/Day Years Used Date Smoking Tobacco: Never Assessed Sex and Gender Information Value Date Recorded Sex Assigned at Not on file Gender Identity Female 07/07/2019 11:20 EST Sexual Orientation Not on file documented as of this encounter Miscellaneous Notes * Telephone Encounter - Cyndee Magdaleno - 07/21/2019 0952 EST [phone] - maría elena wants to know when her surgery is scheduled please documented in this encounter Plan of Treatment Not on file documented as of this encounter Visit Diagnoses Not on filedocumented in this encounter Care Teams Revenue Cycle Manager Relationship Specialty Start Date End Date Georgie Stewart APRN [address] [facility] [place] [address] PCP - General 07/07/19 documented as of this encounter
--- OUTSIDE RECORDS SUMMARY | 2024-04-30 10:50 | XMS_ITS | Encounter Summary ---
Author Organization [facility] Address [address] [place] [address] Care Team Providers Care Evaluator Name Role Phone Jose Hillman MD Primary Care Provider Unav ailable Encounter Details Date Type Department Care Team (Late st Contact Info) Description 03/10/2019 Historical Results Only [facility] - [facility] [place] [address] [place] [address] MD [address] [place] [address], [address] [place] [address] Social History Tobacco Use Types Packs/Day Years Used Date Smoking Tobacco: Never Assessed Sex and Gender Information Value Date Recorded Sex Assigned at Not on file Gender Identity Female 07/07/2019 11:20 EST Sexual Orientation Not on file documented as of this encounter Plan of Treatment Not on file documented as of this encounter Procedures Procedure Name Priority Date/Time Associated Diagnosis Comments [facility] Routine 03/10/2019 10 :24 EDT COMPLETE BLOOD COUNT WITH DIFFERENTIAL (AUTO) Routine 03/10/2019 10:24 EDT TYPE AND SCREEN Routine 03/10/2019 10:24 EDT documented in this encounter Results * [facility] (03/10/2019 10:24 EDT) [facility] NEG 03/10/2019 12:06 EDT [facility] 03/10/2019 10:2 4 EDT 03/10/2019 10:24 EDT Narrative [facility] - 03/10/2019 12:06 EDT Does PT Have a Latex Allergy? YES Enter/Edit CPT and ICD codes? N Swati Lane MD HEMATOLOGY & PF4 ORD ERABLES [facility] * (ABNORMAL) COMPLETE BLOOD COUNT WITH DIFFERENTIAL (AUTO) (03/10/2019 10:24 EDT) ABSOLUTE NEUTROPHIL COUN - [facility] 4.5 2.2 - 8.85 10e3/uL 03/10/2019 11:41 EDT [facility] BASO # - [facility] 0.06 0.01 - 0.11 10e/uL 03/10/2019 11:41 EDT [facility] BASO % - [facility] 1 0 - 2 % 03/10/2019 11:41 EDT [facility] EOS # - [facility] 0.14 0.03 - 0.61 10e3/ul 03/10/2019 11:41 EDT [facility] EOS % - [facility] 2 0 - 5 % 03/10/2019 11:41 EDT [facility] GRAN % - [facility] 60.7 40 - 80 % [facility] 44.9(H) 34.9 - 44.4 % 03/10/2019 11:41 T [facility] HEMOGLOBIN - [facility] 14.6 11.6 - 15.2 g/dl 03/10/2019 11:41 [facility] IG# - [facility] 0.04 0 - 0.7 10e3/uL 03/10/2019 11:41 EDT [facility] IG% - [facility] 0.5 0 - 0.9 % [facility] 2.2 1.09 - 3.3 10e3/ul 03/10/2019 11:41 T [facility] LYMPH% - [facility] 29.5 20 - 40 % 03/10/2019 11:41 [facility] MEAN CORPUSCULAR HGB - [facility] 30.6 26.7 - 33.3 pg 03/10/2019 11:41 [facility] MEAN CORPUSCULAR HGB CONC - [facility] 32.5 32.1 - 35.9 g/dL 03/10/2019 11:41 [facility] MEAN CELL VOLUME - [facility] 94.1 81 - 98 fl 03/10/2019 11:41 [facility] MONO # - [facility] 0.5 0.1 - 0.8 10e3/uL 03/10/2019 11:41 [facility] MONO% - [facility] 6.6 0 - 12 % 03/10/2019 11:41 [facility] PLATELET COUNT 295 141 - 377 10e3/ul 03/10/2019 11:41 [facility] RED BLOOD COUNT - [facility] 4.77 3.86 - 5.04 10e3/ul 03/10/2019 11:41 [facility] RED CELL DISTRI WIDTH - [facility] 12.3 <14.7 % 03/10/2019 11:41 [facility] WHITE BLOOD COUNT - [facility] 7.4 4.0 - 12.4 10e3/ul 03/10/2019 11:41 [facility] 03/10/2019 10:2 4 EDT 03/10/2019 10:24 EDT Narrative [facility] - 03/10/2019 11:41 EDT Does PT Have a Latex Allergy? YES Swati Lane MD HEMATOLOGY & PF4 ORD ERABLES [facility] * TYPE AND SCREEN (03/10/2019 10:24 EDT) BLOOD TYPE - [facility] O Positive [facility] Antibody Screen NEGATIVE [facility] Specimen Expires: 03/31/19 [id number] [facility] 03/10/2019 10:2 4 EDT 03/10/2019 10:24 EDT Narrative [facility] - 03/10/2019 10:18 EDT Does PT Have a Latex Allergy? YES IS THIS A PREOPERATIVE PATIENT? Y IF YES, DATE OF SURGERY: 03/19/[address] MD BLOOD BANK TESTS [facility] documented in this encounter Visit Diagnoses Not on filedocumented in this encounter Care Teams Evaluator Relationship Specialty Start Date End Date Jose Hillman MD PCP - General 04/02/09 07/06/19 documented as of this encounter
[2024-04-30 19:29] LABS: Abs Immature Grans 0.04 10^3/uL (0.0-0.06); Absolute Basophil Count 0.07 10^3/uL (0.0-0.2); Absolute Eosinophil Count 0.14 10^3/uL (0.0-0.7); Absolute Lymphocyte Count 2.44 10^3/uL (1.2-3.4); Absolute Monocyte Count 0.52 10^3/uL (0.1-0.8); Absolute Neutrophil Count 4.05 10^3/uL (1.2-6.7); Eosinophils % 1.9 %; HCT 44.7 % (36.0-46.0); HGB 14.8 g/dL (11.2-15.7); Immature Grans % 0.6 %; Lymphocytes % 33.6 %; MCHC 33.1 % (32.0-36.0); MCV 94 fL (80-95); MPV 10.4 fL (8.0-11.0); Monocytes % 7.2 %; Neutrophils % 55.7 %; Platelet Count 288 10^3/uL (130-400); RBC 4.77 10^6/uL (3.93-5.22); RDW 12.1 % (11.7-14.6); RDW-SD 42.1 fL; WBC 7.26 10^3/uL (4.4-10.8)
[2024-04-30 19:56] LABS: Iron 89 ug/dL (50-170); Total Iron Binding Capacity 404 ug/dL (250-450)
[2024-04-30 20:34] LABS: ALT 28 U/L (14-59); AST 18 U/L (15-37); Albumin 3.8 g/dL (3.4-5.0); Alkaline Phosphatase 76 U/L (46-116); Anion Gap 13.4 mmol/L (3-11); BUN 13 mg/dL (7-18); Bilirubin, Total 0.28 mg/dL (0.2-1.0); CO2 19.6 mmol/L (21.0-32.0); Calcium 9.4 mg/dL (8.5-10.1); Chloride 107 mmol/L (98-107); Estimated GFR 73.04 (mL/min/1.73m2); Glucose 87 mg/dL (74-106); Potassium 4.5 mmol/L (3.5-5.1); Sodium 140 mmol/L (136-145); TSH (W/Ref FT4) 1.25 uIU/mL (0.36-3.74); Total Protein 7.1 g/dL (6.4-8.2)
[2024-04-30 20:57] LABS: Calculated LDL 123 mg/dL (<100); Cholesterol 214 mg/dL (<200); Ferritin 75 ng/mL (8-252); HDL Cholesterol 47 mg/dL (40-60); Triglyceride 220 mg/dL (<150)
== END 2024-04-30 10:47 | disposition home or self-care (01) ==
LOC: NCHCN 10:46
PROVIDERS: PCP Nurse Practitioner Family; Visit Provider Nurse Practitioner Family
DX: F41.9 Anxiety disorder, unspecified (principal); D50.9 Iron deficiency anemia, unspecified; Z83.3 Family history of diabetes mellitus; Z68.38 Body mass index [BMI] 38.0-38.9, adult; E66.9 Obesity, unspecified
CPT/HCPCS: 80053; 80061; 82728; 83540; 83550; 84443; 85025

== ENCOUNTER 2024-10-08 16:07 | Outpatient (REF) | payer MEDICAID, SELFPAY ==
--- OUTSIDE RECORDS SUMMARY | 2024-10-08 16:21 | XMS_ITS | Encounter Summary ---
Author Organization [facility] Address [address] [place] [address] Care Team Providers Care Filter Tank Tender Helper Head Name Role Phone Terry Georgie Jonas APRN Primary Care Provider + Encounter Details Date Type Department Care Team (Late st Contact Info) Description 05/20/2022 Lab Requisition [facility] Pathology & [facility] [address] [place] [address] Outr Resulting Lab, Provider Social History Tobacco [...] 04/04/2020 Verbally Threaten Not on file 04/04/2020 Comments No Sex and Gender Information Value Date Recorded Sex Assigned at Not on file Legal Sex Female 18:24 EST Gender Identity Female 07/07/2019 11:20 EST Sexual Orientation Not on file documented as of this encounter Functional Status * Because of a physical, mental, or emotional condition, does this person have difficulty doing errands alone such as visiting a doctor's office or shopping? Answer Date of Assessment Author No 07/23/2019 14:32 EST documented as of this encounter Mental Status * Because of a physical, mental, or emotional condition, does this person have serious difficulty concentrating, remembering, or making decisions? Answer Entry Date Author No 07/23/2019 14:32 EST documented in this encounter Plan of Treatment Not on file documented as of this encounter Procedures Procedure Name Priority Date/Time Associated Diagnosis Comments RHEUMATOID FACTOR Routine 05/19/2022 12: 25 EDT ANTI NUCLEAR AB (TONY), IFA Routine 05/19/2022 12:25 EDT documented in this encounter Results * RHEUMATOID FACTOR (05/19/2022 12:25 EDT) Rheumatoid Factor <8.6 <12.0 IU/mL 05/21/2022 17:09 EDT [facility] Blood VENOUS BLOOD / Unknown 05/19/2022 12:25 EDT 05/21/2022 16:24 EDT us Provider Outr Resulting Lab CHEMISTRY & BLOOD GA S ORDERABLES Final Result Performing Organization Address City/[facility]/ZIP Co de Phone Number [facility] [address] [place] [address] * ANTI NUCLEAR AB (TONY), IFA (05/19/2022 12:25 EDT) TONY Interpretation Negative Negative 2021 15:06 EDT [facility] Comment:No titer performed, TONY Screen is negative. Blood VENOUS BLOOD / Unknown 05/19/2022 12:25 EDT 05/21/2022 16:24 EDT Narrative [facility] - 05/22/2022 15:06 EDT Results were obtained with the INOVA NOVA Lite HEp-2 TONY Kit by indirect immunofluorescence. us Provider Outr Resulting Lab IMMUNOLOGY AND SEROL OGY ORDERABLES Final Result Performing Organization Address City/[facility]/ZIP Co de Phone Number [facility] [address] [place] [address] documented in this encounter Visit Diagnoses Not on filedocumented in this encounter Care Teams Filter Tank Tender Helper Head Relationship Specialty Start Date End Date Georgie Stewart, VARIETY SAW OPERATOR [address] [place] [place] [phone] PCP - General 07/07/19 documented as of this encounter
--- OUTSIDE RECORDS SUMMARY | 2024-10-08 16:21 | XMS_ITS | Encounter Summary ---
Author Organization [facility] Address [address] [place] [address] Care Team Providers Care Bench Mover Name Role Phone Georgie Stewart Pritesh MIRANDA Primary Care Provider + Reason for Visit * Reason Comments Follow-up Encounter Details Date Type Department Care Team (Late st Contact Info) Description 10/07/2019 10:20 EST Office Visit [facility] [address] [place], [place] [id number] Swati Lane MD [address] [facility], [address] [place] [address] Post-operative state (Primary Dx) Social [...] in the Last Year Never true 09/04/2019 Comments No Sex and Gender Information Value [...] EST documented in this encounter Functional Status * Because of [...] 07/23/2019 14:32 EST documented in this encounter Progress Notes * Rani Reyes [...] Genitourinary: Negative. Musculoskeletal: Positive for back pain. SENIOR REACTOR OPERATOR History: Patient's last menstrual period was [...] Allergies Allergen Reactions ??? Codeine Anaphylaxis ??? Odlqjoe-Ypd-Wn-Acetaminophen Anaphylaxis ??? Sulfa (Sulfonamide Antibiotics) Anaphylaxis ??? Aspirin Other reaction(s): unsure of reaction ??? [place] And Derivatives Other reaction(s): rash and hives [...] may reflect changes made after this encounter. ibuprofen (MOTRIN) 600 mg tablet Take 600 mg by mouth 3 times daily. added in this encounter Care Teams Bench Mover Relationship Specialty Start Date End Date Georgie Stewart, INFORMATION SECURITY ENGINEER [address] [place] [address] PCP - General 07/07/19 documented as of this encounter
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
--- OUTSIDE RECORDS SUMMARY | 2024-10-08 16:21 | XMS_ITS | Encounter Summary ---
Author Organization [facility] Address [address] [place] [address] Care Team Providers Care Submarine Worker Name Role Phone Terry Georgie Jonas APRN [...] on filedocumented in this encounter Care Teams Submarine Worker Relationship Specialty Start Date End Date Georgie Stewart, RUBEN [address] [place] [phone] PCP - General 07/07/19 documented as of this encounter
--- OUTSIDE RECORDS SUMMARY | 2024-10-08 16:21 | XMS_ITS | Clinical Summary ---
Author Organization [facility] Address [address] [place] [address] Care Team Providers Care Director Operations Broadcast Name Role Phone StewartGeorgie banda Pritesh MIRANDA Primary Care Provider + Allergies Active Allergy Reactions Criticality Noted Date Comments Aspirin 04/02/2019 Other reaction(s): unsure of reaction [place] And Derivatives 04/02/2019 Other reaction(s): rash and hives and GI S/SX Codeine Anaphylaxis High 04/02/2019 Ajciodr-Sgi-Wc-Acetaminophe n Anaphylaxis High 04/02/2019 Grape 04/02/2019 Other [...] hemangioma 07/23/2019 Overview (07/23/2019): Seeing GI 08/29/19 Surgical History Surgery Date [...] 19+ 3-dose series) 07/28 COVID-19 Vaccine ( season) 2024 Insurance MEDICAID ACO [place] [facility] Address: [address] [place] [address] MEDICAID [place]CO [place] Care Teams Director Operations Broadcast Relationship Specialty Start Date End Date Georgie Stewart, AUTOMATIC THREAD WINDER [address] [place] [phone] PCP - General 07/07/19
--- OUTSIDE RECORDS SUMMARY | 2024-10-08 16:22 | XMS_ITS | Encounter Summary ---
Author Organization [facility] Address [address] [place] [address] Care Team Providers Care Senior Systems Engineer Name Role Phone Jose Hillman MD Primary Care Provider Georgie Brennan APRN Primary Care Provider + Encounter Details Date Type Department Care Team (Late st Contact Info) Description 06/12/2019 Results Only Imaging [facility] Radiology Results [address] [place], [place] [address] Jossie Lema, CHRISSIE [address] [place] [address] [place] [phone] Social History Tobacco Use Types Packs/Day Years Used Date Smoking Tobacco: Never Assessed Comments Unknown Sex and Gender Information Value Date Recorded [...] CC: ? Transcribed Date/Time: 06/12/2019 (1221) ? Non Acoustic Operator: ? Printed Date/Time: 06/12/2019 (1221) ? PAGE [...] Dar Bolivar MD CC: Transcribed Date/Time: 06/12/2019 (1221) Non Acoustic Operator: Printed Date/Time: 06/12/2019 (9307) PAGE 1 Signed Report Jossie Lema [facility] IMG DIAGNOSTIC IMAGING ORDERA BLES Final Result documented in this encounter Visit Diagnoses Not on filedocumented in this encounter Care Teams Senior Systems Engineer Relationship Specialty Start Date End Date Jose Hillman MD PCP - General 04/02/09 07/06/19 Georgie Stewart, IMAGERY ANALYST [address] [place] [phone] PCP - General 07/07/19 documented as of this encounter
--- OUTSIDE RECORDS SUMMARY | 2024-10-08 16:22 | XMS_ITS | Encounter Summary ---
Author Organization [facility] Address [address] [place] [address] Care Team Providers Care Molder Setter Name Role Phone Jose Hillman MD Primary Care Provider Unav ailable Encounter Details Date Type Department Care Team (Late st Contact Info) Description 06/19/2016 Results Only [facility] Clinical Genetics - [place] [address] [place], [place] [phone] Opal Swift MD [address] [place] [address] Social History Tobacco Use Types [...] of Owen MantillaYI 08.30.2007 06/19/2016 19:42 EDT [facility] Comment Sent to [employer] for comparison purposes. 06/20/2016 11:39 EDT [facility] BLOOD SPECIMEN / Unknown 06/19/2016 19:41 EDT 06/19/2016 19:41 EDT us Opal Swift MD LAB INFO SERVICE AND SUPPO RT & PHONE RESULT Final Result [facility] [address] [place] [address] documented in this encounter Visit Diagnoses Not on filedocumented in this encounter Care Teams Molder Setter Relationship Specialty Start Date End Date Jose Hillman MD PCP - General 04/02/09 07/06/19 documented as of this encounter
--- OUTSIDE RECORDS SUMMARY | 2024-10-08 16:22 | XMS_ITS | Encounter Summary ---
Author Organization [facility] Address [address] [place] [address] Care Team Providers Care Trim Stencil Maker Name Role Phone Jose Hillman MD Primary Care Provider Unav ailable Encounter Details Date Type Department Care Team (Late st Contact Info) Description 08/09/2009 Abstract [facility] OBGYN Services - Main [place] [address] [place] [address] Jose Hillman MD Spotting in Social History [...] applicable documented in this encounter Care Teams Trim Stencil Maker Relationship Specialty Start Date End Date Jose Hillman MD PCP - General 04/02/09 07/06/19 documented as of this encounter
--- OUTSIDE RECORDS SUMMARY | 2024-10-08 16:22 | XMS_ITS | Encounter Summary ---
Author Organization [facility] Address [address] [place] [address] Care Team Providers Care Metal Sprayer Production Name Role Phone Georgie Stewart APRN Primary Care Provider + Reason for Visit * Reason Onset Date Comments Other 07/14/2019 surgery date? Encounter Details Date Type Department Care Team (Late st Contact Info) Description 07/14/2019 Telephone [facility] [address] [place] [address] MD [address] [facility], [address] [place] [address] Other (surgery date? ) Social [...] - Cyndee Magdaleno - 07/21/2019 0952 EST [phone] - maría elena wants to know when her surgery is scheduled please documented in this encounter Plan of Treatment Not on file documented as of this encounter Visit Diagnoses Not on filedocumented in this encounter Care Teams Metal Sprayer Production Relationship Specialty Start Date End Date Georgie Stewart APRN [address] [place] [address], [place] [phone] PCP - General 07/07/19 documented as of this encounter
--- OUTSIDE RECORDS SUMMARY | 2024-10-08 16:22 | XMS_ITS | Encounter Summary ---
Author Organization [facility] Address [address] [place] [address] Care Team Providers Care Neuroscientist Name Role Phone Aric Hurley MD Primary Care Provider Un available Encounter Details Date Type Department Care Team (Late st Contact Info) Description 11/02/2008 Before PRISM Converted Visit (Maple) [facility] Adult Primary Care - [address] [phone] Unknown, Provider, Social History Tobacco Use Types [...] Result No Chlamydia trachomatis DNA detected by human resources officer mediated amplification. [facility] Result No Neisseria gonorrhoeae DNA detected by human resources officer mediated amplification. [facility] 11/02/2008 17:2 0 EST 11/02/2008 23:10 EST us Provider Unknown MICROBIOLOGY - GENERAL ORDER RAFAEL Final Result [facility] [address] [address] * CYTOPATHOLOGY (11/02/2008 0:00 EST) Pathology Report: CYTOPATHOLOGY REPORT ? Reports generated via electronic interface contain original data; ? however they are lacking the format of the original report. ? Caution should be taken when reading/interpreti ng unformatted reports. ? Name: ? MARÍA ELENA FORD ? Accession #: ? [id number] ? : ? 1985 (Age: 23) ??F [...] reviewed and electronically signed by: ? Genny Janey, CT(ASCP) ? Report Date: ??11/05/2008 12:46 ? End of Report ? [facility] 11/02/2008 11/03/2008 us Abner Royal MD PATHOLOGY ORDERABLES Final Res ult [facility] [address] [place] [address] documented in this encounter Visit Diagnoses Not on filedocumented in this encounter Care Teams Neuroscientist Relationship Specialty Start Date End Date Aric Hurley MD PCP - General 01/13/09 04/01/09 documented as of this encounter
--- OUTSIDE RECORDS SUMMARY | 2024-10-08 16:22 | XMS_ITS | Encounter Summary ---
Author Organization [facility] Address [address] [place] [address] Care Team Providers Care Fisheries Officer Name Role Phone Jose Hillman MD Primary Care Provider Unav ailable Encounter Details Date Type Department Care Team (Late st Contact Info) Description 08/11/2010 Results Only [facility] - [facility] [address] [place] [phone] Abner Royal MD Social History Tobacco Use [...] MARÍA ELENA FORD ? Accession #: ? [id number] ? : ? 1985 (Age: 25) ??F [...] reviewed and electronically signed by: ? Kylie Castañedag, CT(ASCP) ? Report Date: ??08/17/2010 09:50 ? End of Report ? [facility] 08/11/2010 08/12/2010 us Abner Royal MD PATHOLOGY ORDERABLES Final Res ult [facility] [address] [place] [address] documented in this encounter Visit Diagnoses Not on filedocumented in this encounter Care Teams Fisheries Officer Relationship Specialty Start Date End Date Jose Hillman MD PCP - General 04/02/09 07/06/19 documented as of this encounter
--- OUTSIDE RECORDS SUMMARY | 2024-10-08 16:22 | XMS_ITS | Encounter Summary ---
Author Organization [facility] Address [address] [place] [address] Care Team Providers Care Workers Compensation Claims Supervisor Name Role Phone Jose Hillman MD Primary Care Provider Georgie Brennan APRN Primary Care Provider + Encounter Details Date Type Department Care Team (Late st Contact Info) Description 06/13/2019 Historical Results Only [facility] - [facility] Lab - Main [address] [address] Flynn Smith MD [address] [place] [phone] Social History Tobacco Use Types Packs/Day [...] the Last Year Never true 09/04/2019 Comments Unknown Sex and Gender Information Value [...] (06/13/2019 13:36 EDT) USUAL UROGENITAL [facility] - [facility] UUV 06/15/2019 11:08 EDT [facility] CitrateConcentration >100,000 CFU/ML 06/03 11:08 EDT [facility] 06/13/2019 13:3 6 EDT 06/13/2019 13:57 EDT Comment:VOID us Flynn Smith MD MICROBIOLOGY - GENERAL ORDERABLE S Final Result [facility] documented in this encounter Visit Diagnoses Not on filedocumented in this encounter Care Teams Workers Compensation Claims Supervisor Relationship Specialty Start Date End Date Jose Hillman MD PCP - General 04/02/09 07/06/19 Georgie Stewart, MINE SUPERVISOR [address] [place] [phone] PCP - General 07/07/19 documented as of this encounter
--- OUTSIDE RECORDS SUMMARY | 2024-10-08 16:22 | XMS_ITS | Encounter Summary ---
Author Organization [facility] Address [address] [place] [address] Care Team Providers Care Financial Aid Coordinator Name Role Phone Jose Hillman MD Primary Care Provider Unav ailable Encounter Details Date Type Department Care Team (Late st Contact Info) Description 03/19/2019 Historical Results Only [facility] Lab - Main [place] [address] [place] [address] MD [address] [place] [address], [address] [place] [address] Social History Tobacco Use Types [...] (03/19/2019) 03/19/2019 03/19/2019 11: 03 EDT Narrative [facility] - 03/20/2019 17:14 EDT ----- ------- Name: MARÍA ELENA FORD ? : [birth year] ?Age/Sex: 33/F ?Unit#: [id number] ? Loc: SDS ? Status: DEP SDC ?? Reg Date: 03/19/19 ? Pt.Phone Number: ? ----- ------- Specimen: [id number] ? STATUS: SOUT ?Spec Date:03/19/19 ? Physician Copies: ?Swati Lane MD ?? Tissues: A ?? Endometrium, polyp ? Georgie Stewart ? B ?? Endometrium, curettings ? C ?? Endocervix, polyp ? CPT: 49355 ?? Units: ??3 ?FINAL DIAGNOSIS ? A. [...] ----- ------- Patient: MARÍA ELENA FORD ? #[id number] ? (Continued) ----- ------- Specimen: [id number] ? Received: 03/19/19 ?(Continued) ? GROSS DESCRIPTION [...] confirmed the above diagnosis. Test Performed by [facility], [address] [place] [address] Telemarketer: Yee Hines MD PHD ----- ------- us Swati Lane MD PATHOLOGY ORDERABLES Final Re sult [facility] documented in this encounter Visit Diagnoses Not on filedocumented in this encounter Care Teams Financial Aid Coordinator Relationship Specialty Start Date End Date Jose Hillman MD PCP - General 04/02/09 07/06/19 documented as of this encounter
--- OUTSIDE RECORDS SUMMARY | 2024-10-08 16:22 | XMS_ITS | Encounter Summary ---
Author Organization [facility] Address [address] [place] [address] Care Team Providers Care Claims Administrator Name Role Phone Jose Hillman MD Primary Care Provider Georgie Brennan APRN Primary Care Provider + Encounter Details Date Type Department Care Team (Late st Contact Info) Description 06/13/2019 Results Only [facility] Lab - Main [address] [address] Flynn Smith MD [address] [place] [phone] Social History Tobacco Use Types Packs/Day [...] 3.4 - 4.9 g/dL 06/13/2019 14:06 EDT [facility] ALKALINE PHOSPHATASE - [facility] 61 38 - 126 U/L 06/13/2019 14:06 EDT [facility] BILIRUBIN TOTAL 0.6 0.2 - 1.3 mg/dL 06/13/2019 14:06 [facility] BUN - [facility] 9(L) 10 - 26 mg/dL 06/13/2019 14:06 [facility] CALCIUM - [facility] 9.1 8.5 - 10.5 mg/dL 06/13/2019 14:06 [facility] Chloride 110 96 - 110 mmol/L 06/13/2019 14:06 [facility] CO2 Total 20(L) 22 - 32 mEq/L 06/13/2019 14:06 [facility] CREATININE 0.74 0.52 - 1.04 mg/dL 06/13/2019 14:06 [facility] eGFR >60 06/13/2019 14:06 [facility] Comment: Chronic renal impairment is defined as GFR <60 Multiply result by 1.210 for patients. eGFR calculated using the IDMS-traceable MDRD Study Equation. ??(effective 07/06/2014) Anion Gap 12 0 - 18 06/13/2019 14:06 [facility] GLUCOSE - [facility] 105(H) 70 - 100 mg/dL 06/13/2019 14:06 [facility] Potassium 3.5 3.5 - 5.0 mEq/L 06/13/2019 14:06 [facility] Sodium 142 136 - 145 mEq/L 06/13/2019 14:06 [facility] TOTAL PROTEIN - [facility] 7.2 6.2 - 8.2 gm/dL 06/13/2019 14:06 [facility] SGOT/AST - [facility] 27 14 - 36 U/L 06/13/2019 14:06 [facility] SGPT/ALT - [facility] 37 9 - 52 U/L 9 14:06 [facility] 06/13/2019 13:4 6 EDT 06/13/2019 13:49 EDT Flynn Smith MD CHEMISTRY & BLOOD GAS ORDERABLES Final Result [facility] documented in this encounter Visit Diagnoses Not on filedocumented in this encounter Care Teams Claims Administrator Relationship Specialty Start Date End Date Jose Hillman MD PCP - General 04/02/09 07/06/19 Georgie Stewart, [address] [place] [phone] PCP - General 07/07/19 documented as of this encounter
--- OUTSIDE RECORDS SUMMARY | 2024-10-08 16:22 | XMS_ITS | Encounter Summary ---
Author Organization [facility] Address [address] [place] [address] Care Team Providers Care Cancer Registrar Name Role Phone Jose Hillman MD Primary Care Provider Georgie Brennan APRN Primary Care Provider + Encounter Details Date Type Department Care Team (Late st Contact Info) Description 06/13/2019 Results Only [facility] Lab - Main [address] [address] Flynn Smith MD [address] [place] [phone] Social History Tobacco Use Types Packs/Day [...] Procedure Name Priority Date/Time Associated Diagnosis Comments [facility] Routine 06/13/2019 13:46 EDT COMPLETE BLOOD COUNT WITH DIFFERENTIAL (AUTO) Routine 06/13/2019 13:46 EDT URINE MICROSCOPIC Routine 06/13/2019 13: 30 EDT URINE CHEMICAL (DIP) & SEDIMENT (MICRO) WITHOUT REFLEX TO CULTURE Routine 06/13/2019 13:30 EDT documented in this encounter Results * (ABNORMAL) COMPLETE BLOOD COUNT WITH DIFFERENTIAL (AUTO) (06/13/2019 13:46 EDT) ABSOLUTE NEUTROPHIL COUN - [facility] 3.0 2.2 - 8.85 10e3/uL 06/13/2019 14:33 [facility] BASO # - [facility] 0.04 0.01 - 0.11 10e/uL 06/13/2019 14:33 [facility] BASO % - [facility] 1 0 - 2 % 06/13/2019 14:33 [facility] EOS # - [facility] 0.12 0.03 - 0.61 10e3/ul 06/13/2019 14:33 [facility] EOS % - [facility] 2 0 - 5 % 06/13/2019 14:33 [facility] GRAN % - [facility] 54.9 40 - 80 % 06/13/2019 14:33 [facility] HEMATOCRIT - [facility] 40.7 34.9 - 44.4 % 06/13/2019 14:33 [facility] HEMOGLOBIN - [facility] 13.7 11.6 - 15.2 g/dl 06/13/2019 14:33 [facility] IG# - [facility] 0.03 0 - 0.7 10e3/uL 06/13/2019 14:33 [facility] IG% - [facility] 0.5 0 - 0.9 % 06/13/2019 14:33 [facility] LYMPH # - [facility] 1.6 1.09 - 3.3 10e3/ul 06/13/2019 14:33 [facility] LYMPH% - [facility] 29.2 20 - 40 % 06/13/2019 14:33 [facility] MEAN CORPUSCULAR HGB - [facility] 30.6 26.7 - 33.3 pg 06/13/2019 14:33 [facility] MEAN CORPUSCULAR HGB CONC - [facility] 33.7 32.1 - 35.9 g/dL 06/13/2019 14:33 [facility] MEAN CELL VOLUME - [facility] 90.8 81 - 98 fl 06/13/2019 14:33 [facility] MONO # - [facility] 0.7 0.1 - 0.8 10e3/uL 06/13/2019 14:33 [facility] MONO% - [facility] 12.5(H) 0 - 12 % 06/13/2019 14:33 [facility] PLATELET COUNT 243 141 - 377 10e3/ul 06/13/2019 14[facility] RED BLO[facility] COUNT - [facility] 4.48 3.86 - 5.04 10e3/ul 06/13/2019 14:33 [facility] RED CELL DISTRI WIDTH - [facility] 12.0 <14.7 % 06/13/2019 14:33 [facility] WHITE BLOOD COUNT - [facility] 5.5 4.0 - 12.4 10e3/ul 06/13/2019 14:[address] [facility] 06/13/2019 13:4 6 EDT 06/13/2019 13:49 EDT us Flynn Smith MD HEMATOLOGY & PF4 ORDERABLES Nicolasa l Result Performing Organization Address City/[facility]/ZIP Co de Phone Number [facility] * LIPASE SERPL-[facility] (06/13/2019 13:46 EDT) [facility] 93 <251 U/L 06/13/2019 14:[address] [facility] 06/13/2019 13:4 6 EDT 06/13/2019 13:49 EDT us Flynn Smith MD CHEMISTRY & BLOOD GAS ORDERABLES Final Result Performing Organization Address [facility]/ZIP Co de Phone Number [facility] * URINE MICROSCOPIC (06/13/2019 13:30 EDT) URINE APPEARANCE - [facility] Cloudy CLEAR 06/13/2019 13:[address] [facility] URINE BACTERIA - [facility] FEW 06/13/2019 13:[address] [facility] URINE COLOR - [facility] Red YELLOW 2018 13:[address] [facility] Comment: Abnormal urine color may interfere with interpretation of the urinalysis reagent test strips. Urinalysis order has been reflexed to Urine Microscopic due to color interference. URINE RBC - [facility] TNTC rbc/hpf 06/13/20 19 13:[address] [facility] URCULTIF+? - [facility] Culture Ordered 06/13/2019 13:[address] [facility] URINE SQUAMOUS CELLS - [facility] FEW NEG #/hpf 06/13/2019 13:[address] [facility] URINE WBC - [facility] 5-10 NEG wbc/hpf 06/13/2019 13:[address] [facility] 06/13/2019 13:3 0 EDT 06/13/2019 13:42 EDT us Flynn Smith MD URINALYSIS ORDERABLES Final Resu lt [facility] documented in this encounter Visit Diagnoses Not on filedocumented in this encounter Care Teams Cancer Registrar Relationship Specialty Start Date End Date Jose Hillman MD PCP - General 04/02/09 07/06/19 Georgie Stewart, CRUSHER FEEDER [address] [place] [phone] PCP - General 07/07/19 documented as of this encounter
--- OUTSIDE RECORDS SUMMARY | 2024-10-08 16:22 | XMS_ITS | Encounter Summary ---
Author Organization [facility] Address [address] [place] [address] Care Team Providers Care Cna Ltc Name Role Phone Jose Hillman MD Primary Care Provider Unav ailable Encounter Details Date Type Department Care Team (Late st Contact Info) Description 04/06/2009 Orders Only [facility] [phone] Abner Anand MD Social History Tobacco Use [...] Procedure Name Priority Date/Time Associated Diagnosis Comments [facility] ROUTINE 04/06/2009 14:46 EDT documented in this encounter Results * [facility] ROUTINE (04/06/2009 14:46 EDT) Anatomical Region Laterality Modality Other 04/06/2009 14:4 6 EDT 04/13/2009 5:40 EDT Narrative 04/13/2009 5:40 EDT Please refer to the separate [facility] report. ??Contact Maternal Medicine. Procedure Note 04/13/2009 Please refer to the separate [facility] report. Contact Maternal Medicine. Abner Anand MD [facility] [place]LES Final Re sult documented in this encounter Visit Diagnoses Not on filedocumented in this encounter Care Teams Cna Ltc Relationship Specialty Start Date End Date Jose Hillman MD PCP - General 04/02/09 07/06/19 documented as of this encounter
--- OUTSIDE RECORDS SUMMARY | 2024-10-08 16:22 | XMS_ITS | Encounter Summary ---
Author Organization [facility] Address [address] [place] [address] Care Team Providers Care Philosophy Specialist Name Role Phone Jose Hillman MD Primary Care Provider Georgie Brennan APRN Primary Care Provider + Encounter Details Date Type Department Care Team (Late st Contact Info) Description 06/19/2019 Results Only Imaging [facility] [place] Results [address] [place] [address] Niranjan Oliver MD [address] [place] [address] Social History Tobacco Use Types [...] 06/19/2019 9:32 EDT ? EXAM: ULTRASOUND/TRANSVAGINAL - WINE BOTTLE INSPECTOR ? EX. D/ (0855) ? CLINICAL INFORMATION: ? Persitent VB ? TRANSVAGINAL - WINE BOTTLE INSPECTOR ? Signs and Symptoms/Comments: ??Persitent VB ? [...] MD ? Transcribed Date/Time: 06/19/2019 (09) ? Chief Minister: R ? Printed Date/Time: 06/19/2019 (931) ? PAGE 2 ? Signed Report ? Procedure Note David Nguyen E - 07/12/2019 EXAM: ULTRASOUND/TRANSVAGINAL - WINE BOTTLE INSPECTOR EX. D/ (0855) CLINICAL INFORMATION: Persitent VB TRANSVAGINAL - WINE BOTTLE INSPECTOR Signs and Symptoms/Comments: Persitent VB Comparison: None [...] CC: Niranjan Oliver MD Transcribed Date/Time: 06/19/2019 (5626) Chief Minister: Printed Date/Time: 06/19/2019 (3108) PAGE 2 Signed Report Niranjan Oliver MD [facility] OB ORDERABLES Fin al Result documented in this encounter Visit Diagnoses Not on filedocumented in this encounter Care Teams Philosophy Specialist Relationship Specialty Start Date End Date Jose Hillman MD PCP - General 04/02/09 07/06/19 Georgie Stewart, TELEPHONE OPERATOR CHIEF [address] [place] [phone] PCP - General 07/07/19 documented as of this encounter
--- OUTSIDE RECORDS SUMMARY | 2024-10-08 16:22 | XMS_ITS | Encounter Summary ---
Author Organization [facility] Address [address] [place] [address] Care Team Providers Care Sales Representative Malt Liquors Name Role Phone Jose Hillman MD Primary Care Provider Unav ailable Encounter Details Date Type Department Care Team (Late st Contact Info) Description 03/10/2019 Historical Results Only [facility] - Main [place] [address] [place] [address] MD [address] [place] [address], [address] [place] [address] Social History Tobacco Use Types [...] Procedure Name Priority Date/Time Associated Diagnosis Comments [facility] Routine 03/10/2019 10 :24 EDT COMPLETE BLOOD COUNT WITH DIFFERENTIAL (AUTO) Routine 03/10/2019 10:24 EDT TYPE AND SCREEN Routine 03/10/2019 10:24 EDT documented in this encounter Results * [facility] (03/10/2019 10:24 EDT) [facility] NEG 03/10/2019 12:06 EDT [facility] 03/10/2019 10:2 4 EDT 03/10/2019 10:24 EDT Narrative [facility] - 03/10/2019 12:06 EDT Does PT Have a Latex Allergy? YES Enter/Edit CPT and ICD codes? N us Swati Lane MD HEMATOLOGY & PF4 ORDERABLES F inal Result [facility] * (ABNORMAL) COMPLETE BLOOD COUNT WITH DIFFERENTIAL (AUTO) (03/10/2019 10:24 EDT) ABSOLUTE NEUTROPHIL COUN - [facility] 4.5 2.2 - 8.85 10e3/uL 03/10/2019 11:41 [facility] BASO # - [facility] 0.06 0.01 - 0.11 10e/uL 03/10/2019 11:41 [facility] BASO % - [facility] 1 0 - 2 % 03/10/2019 11:41 [facility] EOS # - [facility] 0.14 0.03 - 0.61 10e3/ul 03/10/2019 11:41 [facility] EOS % - [facility] 2 0 - 5 % 03/10/2019 11:41 [facility] GRAN % - [facility] 60.7 40 - 80 % 03/10/2019 11:41 [facility] HEMATOCRIT - [facility] 44.9(H) 34.9 - 44.4 % 03/10/2019 11:41 [facility] HEMOGLOBIN - [facility] 14.6 11.6 - 15.2 g/dl 03/10/2019 11:41 [facility] IG# - [facility] 0.04 0 - 0.7 10e3/uL 03/10/2019 11:41 [facility] IG% - [facility] 0.5 0 - 0.9 % 03/10/2019 11:41 [facility] LYMPH # - [facility] 2.2 1.09 - 3.3 10e3/ul 03/10/2019 11:41 [facility] - [facility] 29.5 20 - 40 % 03/10/2019 11:41 [facility] MEAN CORPUSCULAR HGB - [facility] 30.6 26.7 - 33.3 pg 03/10/2019 11:41 [facility] MEAN CORPUSCULAR HGB CONC - [facility] 32.5 32.1 - 35.9 g/dL 03/10/2019 11:41 [facility] MEAN CELL VOLUME - [facility] 94.1 81 - 98 fl 03/10/2019 11:41 [facility] MONO # - [facility] 0.5 0.1 - 0.8 10e3/uL 03/10/2019 11:41 [facility] MONO% - [facility] 6.6 0 - 12 % 03/10/2019 11:41 [facility] PLATELET COUNT 295 141 - 377 10e3/ul 03/10/2019 11:41 [facility] RED BLOOD COUNT - [facility] 4.77 3.86 - 5.04 10e3/ul 03/10/2019 11:41 [facility] RED CELL DISTRI WIDTH - [facility] 12.3 <14.7 % 03/10/2019 11:41 [facility] WHITE BLOOD COUNT - [facility] 7.4 4.0 - 12.4 10e3/ul 03/10/2019 11:41 [facility] 03/10/2019 10:2 4 EDT 03/10/2019 10:24 EDT Narrative [facility] - 03/10/2019 11:41 EDT Does PT Have a Latex Allergy? YES us Swati Lane MD HEMATOLOGY & PF4 ORDERABLES F inal Result [facility] * TYPE AND SCREEN (03/10/2019 10:24 EDT) Pathologist [facility] BLOOD TYPE - [facility] O Positive [facility] Antibody Screen NEGATIVE [facility] Specimen Expires: 03/31/19 [id number] [facility] 03/10/2019 10:2 4 EDT 03/10/2019 10:24 EDT Narrative [facility] - 03/10/2019 10:18 EDT Does PT Have a Latex Allergy? YES IS THIS A PREOPERATIVE PATIENT? Y IF YES, DATE OF SURGERY: 03/19/[address] MD BLOOD BANK TESTS Final Result [facility] documented in this encounter Visit Diagnoses Not on filedocumented in this encounter Care Teams Sales Representative Malt Liquors Relationship Specialty Start Date End Date Jose Hillman MD PCP - General 04/02/09 07/06/19 documented as of this encounter
--- OUTSIDE RECORDS SUMMARY | 2024-10-08 16:22 | XMS_ITS | Encounter Summary ---
Author Organization [facility] Address [address] [place] [address] Care Team Providers Care Medical Coding Auditor Name Role Phone Jose Hillman MD Primary Care Provider Georgie Brennan APRN Primary Care Provider + Encounter Details Date Type Department Care Team (Late st Contact Info) Description 06/19/2019 Results Only [facility] - Main [address] [address] Zoran Lubin MD [address] [place] [phone] Social History Tobacco Use Types Packs/Day [...] Procedure Name Priority Date/Time Associated Diagnosis Comments [facility] [place]EN - [facility] Routine 06/19/2019 6: 50 EDT COMPLETE BLOOD COUNT WITH DIFFERENTIAL (AUTO) Routine 06/19/2019 6:50 EDT C REACTIVE PROTEIN Routine 06/19/2019 6: 50 EDT COMPREHENSIVE METABOLIC PANEL (CMP) Routine 06/19/2019 6:50 EDT documented in this encounter Results * C REACTIVE PROTEIN (06/19/2019 6:50 EDT) [facility] C-Reactive Protein 7.7 <10.0 mg/L 06/19/2019 7:15 [facility] 06/19/2019 6:50 EDT 06/19/2019 6:59 EDT Zoran Lubin MD CHEMISTRY & BLOOD GAS ORDER RAFAEL Final Result [facility] * (ABNORMAL) COMPREHENSIVE METABOLIC PANEL (CMP) (06/19/2019 6:50 EDT) [facility] Albumin % 4.2 3.4 - 4.9 g/dL 06/19/2019 7:15 [facility] ALKALINE PHOSPHATASE - [facility] 62 38 - 126 U/L 06/19/2019 7:15 [facility] BILIRUBIN TOTAL 0.5 0.2 - 1.3 mg/dL 06/19/2019 7:15 [facility] BUN - [facility] 12 10 - 26 mg/dL 06/19/2019 7:15 [facility] CALCIUM - [facility] 9.4 8.5 - 10.5 mg/dL 06/19/2019 7:15 [facility] Chloride 108 96 - 110 mmol/L 06/19/2019 7:15 [facility] CO2 Total 19(L) 22 - 32 mEq/L 06/19/2019 7:15 [facility] CREATININE 0.75 0.52 - 1.04 mg/dL 06/19/2019 7:15 [facility] eGFR >60 06/19/2019 7:15 [facility] Comment: Chronic renal impairment is defined as GFR <60 Multiply result by 1.210 for patients. eGFR calculated using the IDMS-traceable MDRD Study Equation. ??(effective 07/06/2014) Anion Gap 14 0 - 18 06/19/2019 7:15 [facility] GLUCOSE - [facility] 114(H) 70 - 100 mg/dL 06/19/2019 7:15 EDT [facility] Potassium 4.0 3.5 - 5.0 mEq/L 06/19/2019 7:15 EDT [facility] Sodium 141 136 - 145 mEq/L 06/19/2019 7:15 EDT [facility] TOTAL PROTEIN - [facility] 7.4 6.2 - 8.2 gm/dL 06/19/2019 7:15 EDT [facility] SGOT/AST - [facility] 23 14 - 36 U/L 06/19/2019 7:15 EDT [facility] SGPT/ALT - [facility] 38 9 - 52 U/L 9 7:15 EDT [facility] 06/19/2019 6:50 EDT 06/19/2019 6:59 EDT us Zoran Lubin MD CHEMISTRY & BLOOD GAS ORDER RAFAEL Final Result Performing Organization Address City/[facility]/ZIP Co de Phone Number [facility] * [facility] (06/19/2019 6:50 EDT) [facility] SCREEN [facility] NEG 06/19/2019 7:13 EDT [facility] 06/19/2019 6:50 EDT 06/19/2019 6:59 EDT Zoran Lubin MD HEMATOLOGY & PF4 ORDERABLES Final Result [facility] * COMPLETE BLOOD COUNT WITH DIFFERENTIAL (AUTO) (06/19/2019 6:50 EDT) ABSOLUTE NEUTROPHIL COUN - [facility] 4.7 2.2 - 8.85 10e3/uL 06/19/2019 7:02 EDT [facility] BASO # - [facility] 0.05 0.01 - 0.11 10e/uL 06/19/2019 7:02 EDT [facility] BASO % - [facility] 1 0 - 2 % 06/19/2019 7:02 [facility] EOS # - [facility] 0.27 0.03 - 0.61 10e3/ul 06/19/2019 7:02 [facility] EOS % - [facility] 3 0 - 5 % 06/19/2019 7:02 [facility] GRAN % - [facility] 59.6 40 - 80 % 06/19/2019 7:02 [facility] HEMATOCRIT - [facility] 38.7 34.9 - 44.4 % 06/19/2019 7:02 [facility] HEMOGLOBIN - [facility] 12.9 11.6 - 15.2 g/dl 06/19/2019 7:02 [facility] IG# - [facility] 0.04 0 - 0.7 10e3/uL 06/19/2019 7:02 [facility] IG% - [facility] 0.5 0 - 0.9 % 06/19/2019 7:02 [facility] LYMPH # - [facility] 2.3 1.09 - 3.3 10e3/ul 06/19/2019 7:02 [facility] LYMPH% - [facility] 28.5 20 - 40 % 06/19/2019 7:02 [facility] MEAN CORPUSCULAR HGB - [facility] 30.4 26.7 - 33.3 pg 06/19/2019 7:02 [facility] MEAN CORPUSCULAR HGB CONC - [facility] 33.3 32.1 - 35.9 g/dL 06/19/2019 7:02 [facility] MEAN CELL VOLUME - [facility] 91.1 81 - 98 fl 06/19/2019 7:02 [facility] MONO # - [facility] 0.6 0.1 - 0.8 10e3/uL 06/19/2019 7:02 [facility] MONO% - [facility] 7.4 0 - 12 % 06/19/2019 7:02 [facility] PLATELET COUNT 314 141 - 377 10e3/ul 06/19/2019 7:02 [facility] RED BLOOD COUNT - [facility] 4.25 3.86 - 5.04 10e3/ul 06/19/2019 7:02 EDT [facility] RED CELL DISTRI WIDTH - [facility] 12.1 <14.7 % 06/19/2019 7:02 EDT [facility] WHITE BLOOD COUNT - [facility] 8.0 4.0 - 12.4 e3/ul 06/19/2019 7:02 EDT [facility] 06/19/2019 6:50 EDT 06/19/2019 6:59 EDT us Zoran Lubin MD HEMATOLOGY & PF4 ORDERABLES Final Result [facility] documented in this encounter Visit Diagnoses Not on filedocumented in this encounter Care Teams Medical Coding Auditor Relationship Specialty Start Date End Date Jose Hillman MD PCP - General 04/02/09 07/06/19 Georgie Stewart, APPLICATION INTERNSHIP [address] [place] [phone] PCP - General 07/07/19 documented as of this encounter
--- OUTSIDE RECORDS SUMMARY | 2024-10-08 16:22 | XMS_ITS | Encounter Summary ---
Author Organization [facility] Address [address] [place] [address] Care Team Providers Care Pet Caretaker Name Role Phone Georgie Stewart Pritesh MANAGER PRIMARY Primary Care Provider + Reason for Visit * Reason Comments Pre-op Exam Encounter Details Date Type Department Care Team (Latest Contact Info) Description 07/23/2019 14:00 EST Office Visit [facility] OBG[facility] [address] [place] [address] MD [address] [facility], [address] [place] [address] Dysfunctional uterine bleeding (Primary Dx); [...] of Binge Drinking Not on file 07/05 Comments No Sex and Gender Information Value [...] documented in this encounter Progress Notes * Swati Lane [...] Negative. Endo/Heme/Allergies: Negative. Psychiatric/Behavioral: Positive for depression. 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 Menses: irregular and heavy STI's: none Sexual activity: yes, with joint terminal attack controller male partner Contraception: female sterilization procedure Cervical [...] Allergies Allergen Reactions ??? Codeine Anaphylaxis ??? Zdpdgmn-Aoe-Lo-Acetaminophen Anaphylaxis ??? Sulfa (Sulfonamide Antibiotics) Anaphylaxis ??? Aspirin Other reaction(s): unsure of reaction ??? Nowata And Derivatives Other reaction(s): rash and hives [...] may reflect changes made after this encounter. albuterol 90 mcg/actuation inhaler Inhale 2 Puffs [...] 08/18/2019 added in this encounter Care Teams Pet Caretaker Relationship Specialty Start Date End Date Georgie Stewart, RUBEN [address] [place] [phone] PCP - General 07/07/19 documented as of this encounter
--- OUTSIDE RECORDS SUMMARY | 2024-10-08 16:22 | XMS_ITS | Encounter Summary ---
Author Organization [facility] Address [address] [place] [address] Care Team Providers Care Butcher Scullion Name Role Phone Jose Hillman MD Primary Care Provider Georgie Brennan APRN Primary Care Provider + Encounter Details Date Type Department Care Team (Late st Contact Info) Description 06/13/2019 Results Only Imaging [facility] - [facility] Radiology Results [address] [place] [address] Flynn Smith MD [address] [place] [address] Social History Tobacco Use Types [...] noncritical result requiring ? follow-up on the [employer] findings application, to be tracked by ? the [employer] tracking system. ? REPORT SIGNED IN OTHER VENDOR SYSTEM 06/13/2019 ?Reported By: Lexx rAias MD ? CC: ? Transcribed Date/Time: 06/13/2019 (1513) ? Raise Drill Operator: ? Printed Date/Time: 06/13/2019 (605) ? PAGE 1 ? Signed Report ? Procedure Note Lexx Arias MD - 07/12/2019 EXAM: CAT SCAN/ABDOMEN PELVIS W/WO CONTRA EX. D/ (1969) CLINICAL INFORMATION: INDICATION: Question bladder infection.. COMPARISON: [...] a noncritical result requiring follow-up on the [employer] PACS findings application, to be tracked by the [facility] tracking system. REPORT SIGNED IN OTHER VENDOR SYSTEM 06/13/2019 Reported By: Lexx Arias MD CC: Transcribed Date/Time: 06/13/2019 (1513) Raise Drill Operator: Printed Date/Time: 06/13/2019 (538) PAGE 1 Signed Report us Flynn Smith MD IMG CT ORDERABLES Final Result documented in this encounter Visit Diagnoses Not on filedocumented in this encounter Care Teams Butcher Scullion Relationship Specialty Start Date End Date Jose Hillman MD PCP - General 04/02/09 07/06/19 Georgie Stewart APRN [address] [place] [phone] PCP - General 07/07/19 documented as of this encounter
--- OUTSIDE RECORDS SUMMARY | 2024-10-08 16:22 | XMS_ITS | Encounter Summary ---
Author Organization [facility] Address [address] [place] [address] Care Team Providers Care Pathology Collector Name Role Phone Aric Hurley MD Primary Care Provider Un available Encounter Details Date Type Department Care Team (Latest Contact Info) Description 02/01/2009 17:00 EDT - 02/01/2009 17:01 EDT Hospital Encounter [facility] - Other [address] [place] [address] Abner Anand MD Discharge Disposition: Home or [...] on filedocumented in this encounter Care Teams Pathology Collector Relationship Specialty Start Date End Date Aric Hurley MD PCP - General 01/13/09 04/01/09 documented as of this encounter
--- OUTSIDE RECORDS SUMMARY | 2024-10-08 16:22 | XMS_ITS | Encounter Summary ---
Author Organization [facility] Address [address] [place] [address] Care Team Providers Care Field Representative Name Role Phone Jose Hillman MD Primary Care Provider Unav ailable Encounter Details Date Type Department Care Team (Late st Contact Info) Description 09/24/2018 Historical Results Only [facility] Lab - Main [place] [address] [place] [address] MD [address] [place] [address]-, [address] [place] [address] Social History Tobacco Use Types [...] 2.06 0.46 - 4.68 uIU/mL 09/24/2018 12:28 [facility] 09/24/2018 11:0 0 EST 09/24/2018 11:00 EST Narrative [facility] - 09/24/2018 12:28 EST Does PT Have a Latex Allergy? YES us Swati Lane MD CHEMISTRY & BLOOD GAS ORDERAB LES Final Result [facility] * COMPLETE BLOOD COUNT WITH DIFFERENTIAL (AUTO) (09/24/2018 11:00 EST) ABSOLUTE NEUTROPHIL COUN - [facility] 5.1 2.2 - 8.85 10e3/uL 09/24/2018 11:40 [facility] BASO # - [facility] 0.05 0.01 - 0.11 10e/uL 09/24/2018 11:40 [facility] BASO % - [facility] 1 0 - 2 % 09/24/2018 11:40 [facility] EOS # - [facility] 0.12 0.03 - 0.61 10e3/ul 09/24/2018 11:40 [facility] EOS % - [facility] 1 0 - 5 % 09/24/2018 11:40 [facility] GRAN % - [facility] 59.6 40 - 80 % 09/24/2018 11:40 [facility] HEMATOCRIT - [facility] 42.7 34.9 - 44.4 % 09/24/2018 11:40 [facility] HEMOGLOBIN - [facility] 13.9 11.6 - 15.2 g/dl 09/24/2018 11:40 [facility] IG# - [facility] 0.03 0 - 0.7 10e3/uL 09/24/2018 11:40 [facility] IG% - [facility] 0.4 0 - 0.9 % 09/24/2018 11:40 [facility] LYMPH # - [facility] 2.6 1.09 - 3.3 10e3/ul 09/24/2018 11:40 [facility] LYMPH% - [facility] 30.3 20 - 40 % 09/24/2018 11:40 [facility] MEAN CORPUSCULAR HGB - [facility] 29.1 26.7 - 33.3 pg 09/24/2018 11:40 [facility] MEAN CORPUSCULAR HGB CONC - [facility] 32.6 32.1 - 35.9 g/dL 09/24/2018 11:40 [facility] MEAN CELL VOLUME - [facility] 89.3 81 - 98 fl 09/24/2018 11:40 [facility] MONO # - [facility] 0.7 0.1 - 0.8 10e3/uL 09/24/2018 11:40 [facility] MONO% - [facility] 7.7 0 - 12 % 09/24/2018 11:40 [facility] PLATELET COUNT 349 141 - 377 10e3/ul 09/24/2018 11:40 [facility] RED BLOOD COUNT - [facility] 4.78 3.86 - 5.04 10e3/ul 09/24/2018 11:40 [facility] RED CELL DISTRI WIDTH - [facility] 13.3 <14.7 % 09/24/2018 11:40 [facility] WHITE BLOOD COUNT - [facility] 8.6 4.0 - 12.4 10e3/ul 09/24/2018 11:40 [facility] 09/24/2018 11:0 0 EST 09/24/2018 11:00 EST Narrative [facility] - 09/24/2018 11:40 EST Does PT Have a Latex Allergy? YES us Swati Lane MD HEMATOLOGY & PF4 ORDERABLES F inal Result [facility] * HUMAN PAPILLOMAVIRUS (HPV) DETECTION-HIGH RISK TYPES (09/24/2018 9:38 EST) HPV other High Risk types, PCR NEG 09/30/2018 15:10 [facility] Comment: Negative for HPV types 16, 18, 31, 33, 35, 39, 45, 51, 52, 56, 58, 59, 66, 68. Method: Cervista HPV HR (High Risk) DNA test. 09/24/2018 9:38 EST 09/25/2018 9:[address] MD MICROBIOLOGY - GENERAL [place] MOUSTAPHARodolfo Final Result [facility] * PAP TEST (09/24/2018) 09/24/2018 09/25/2018 9:3 7 EST Narrative [facility] - 09/30/2018 15:53 EST ----- ------- Name: MARÍA ELENA FORD ? : 81 ?Age/Sex: 33/F ?Unit#: [id number] ? Loc: AGO ? Status: REG POV ?? Reg Date: 09/24/18 ? Pt.Phone Number: ? ----- ------- Specimen: [id number] ? STATUS: SOUT ?Spec Date:09/24/18 ? Physician Copies: ?Swati Lane MD ?? Tissues: ? Cervical/Endo Pap ?Georgie Stewart CPT: 25208 ?? Units: ??1 ----- ------- ? CYTOLOGY [...] confirmed the above diagnosis. Test Performed by [facility], [address] [place] [address] Winding Lathe Operator: Yee Hines MD PHD ----- ------- us Swati Lane MD PATHOLOGY ORDERABLES Final Re sult [facility] documented in this encounter Visit Diagnoses Not on filedocumented in this encounter Care Teams Field Representative Relationship Specialty Start Date End Date Jose Hillman MD PCP - General 04/02/09 07/06/19 documented as of this encounter
--- OUTSIDE RECORDS SUMMARY | 2024-10-08 16:22 | XMS_ITS | Encounter Summary ---
Author Organization [facility] Address [address] [place] [address] Care Team Providers Care Grocery Buyer Name Role Phone Terry Georgie Pritesh MIRANDA Primary Care Provider + Encounter Details Date Type Department Care Team (Late st Contact Info) Description 09/09/2019 Historical Results Only [facility] Lab - Main [address] [address] Lucas Turcios MD [address] [place] [phone] Social History Tobacco Use Types Packs/Day [...] (09/09/2019 4:20 EST) [facility]UAL [facility] UUV 09/10/2019 12:26 EST [facility] CitrateConcentration 10,000-1 00,000 CFU/ML 09/10/2019 12:26 EST [facility] 09/09/2019 4:20 EST 09/09/2019 4:51 EST Comment:VOID Lucas Turcios MD MICROBIOLOGY - GENERAL ORDERABLES Final Result [facility] documented in this encounter Visit Diagnoses Not on filedocumented in this encounter Care Teams Grocery Buyer Relationship Specialty Start Date End Date Georgie Stewart, INDUSTRIAL ORGANIZATIONAL PSYCHOLOGIST [address] [place] [phone] PCP - General 07/07/19 documented as of this encounter
--- OUTSIDE RECORDS SUMMARY | 2024-10-08 16:22 | XMS_ITS | Encounter Summary ---
Author Organization [facility] Address [address] [place] [address] Care Team Providers Care Crank Hand Name Role Phone Jose Hillman MD Primary Care Provider Unav ailable Encounter Details Date Type Department Care Team (Late st Contact Info) Description 09/30/2018 Historical Results Only [facility] Radiology Results [address] [place] [address] MD 130 [facility], [address] [place] [address] Social History Tobacco Use Types [...] CC: ? Transcribed Date/Time: 09/30/2018 (1155) ? Cake Wringer: ? Printed Date/Time: 02/23/2019 (1217) ? PAGE [...] David Nguyen MD CC: Transcribed Date/Time: 09/30/2018 (5959) Cake Wringer: Printed Date/Time: 02/23/2019 (6226) PAGE [address] Signed [address] us Swati [address] MD [facility] ORDERABLES Final Resul t * MA BREAST DIAGNOSTIC JESUS RIGHT (09/30/2018 [...] CC: ? Transcribed Date/Time: 09/30/2018 (1155) ? Cake Wringer: ? Printed Date/Time: 02/23/2019 (1217) ? PAGE [...] David Nguyen MD CC: Transcribed Date/Time: 09/30/2018 (1532) Cake Wringer: Printed Date/Time: 02/23/2019 (6172) PAGE [address] MD IMG MAMMOGRAPHY ORDERABLES Fi nal Result documented in this encounter Visit Diagnoses Not on filedocumented in this encounter Care Teams Crank Hand Relationship Specialty Start Date End Date Jose Hillman MD PCP - General 04/02/09 07/06/19 documented as of this encounter
--- OUTSIDE RECORDS SUMMARY | 2024-10-08 16:22 | XMS_ITS | Encounter Summary ---
Author Organization [facility] Address [address] [place] [address] Care Team Providers Care Estate Agent Name Role Phone Jose Hillman MD Primary Care Provider Unav ailable Encounter Details Date Type Department Care Team (Latest Contact Info) Description 09/30/2018 11:44 EST - 09/30/2018 23:59 EST Hospital Encounter [facility] [address] [place] [address] Unknown, Provider, MD Discharge Disposition: Home or Self Care [...] Code Departure Means Destination Home or Self Snf documented in this encounter Plan of Treatment Not on file documented as of this encounter Visit Diagnoses Not on filedocumented in this encounter Care Teams Estate Agent Relationship Specialty Start Date End Date Jose Hillman MD PCP - General 04/02/09 07/06/19 documented as of this encounter
--- OUTSIDE RECORDS SUMMARY | 2024-10-08 16:22 | XMS_ITS | Encounter Summary ---
Author Organization [facility] Address [address] [place] [address] Care Team Providers Care Seismology Technical Officer Name Role Phone StewartGeorgie banda Pritesh MIRANDA Primary Care Provider + Encounter Details Date Type Department Care Team (Late st Contact Info) Description 08/19/2019 Results Only [facility] [phone] MD [address] [place] [address], [address] [place] [address] Social History Tobacco Use Types [...] [facility] (08/19/2019 12:04 EST) URINE APPEARANCE - CV Cloudy CLEAR 08/19/2019 12:31 [facility] URINE BACTERIA - CV MANY 08/19/2019 12:57 [facility] URINE BILIRUBIN - DIPSTICK - CV Negative NEGATIVE 08/19/2019 12:31 [facility] URINE BLOOD - CV 3+ NEG 08/19/2019 12:31 [facility] URINE COLOR - CV Yellow YELLOW 08/19/2019 12:31 [facility] URINE GLUCOSE - DIPSTICK - CV Negative NEGATIVE 08/19/2019 12:31 [facility] URINE KETONE - CV Negative NEGATIVE 08/19/2019 12:31 [facility] URINE LEUK ESTERASE - CV 3+ NEG 08/19/2019 12:31 [facility] URINE NITRITE - DIPSTICK - CV Negative NEG 08/19/2019 12:31 [facility] URINE PH - CV 7.0 4.0 - 8.0 9 12:31 [facility] URINE PROTEIN - DIPSTICK - CV Negative NEG 08/19/2019 12:31 [facility] URINE RBC - [facility] TNTC rbc/hpf 08/19/2019 12:57 [facility] URCULTIF+? - [facility] Contaminated 08/19/2019 12:57 [facility] Comment: Specimen contaminated. Please recollect a clean catch sample if a culture is indicated. URINE SPECIFIC GRAVITY - [facility] <=1.005 1.001 - 1.035 08/19/2019 12:31 [facility] URINE SQUAMOUS CELLS - [facility] TNTC NEG #/hpf 08/19/2019 12:57 [facility] URINE UROBILINOGEN - DIPSTICK - [facility] 0.2 0.2 - 1.0 08/19/2019 12:31 [facility] URINE WBC - [facility] 5-10 NEG wbc/hpf 08/19/2019 12:57 [facility] 08/19/2019 12:0 4 EST 08/19/2019 12:18 EST [facility] - 08/19/2019 12:57 EST Does PT Have a Latex Allergy? YES us Gold Villar MD CHEMISTRY & BLOOD GAS ORDERABLE S Final Result [facility] * (ABNORMAL) BASIC METABOLIC PANEL (BMP) (08/19/2019 2:20 EST) BUN - [facility] 9(L) 10 - 26 mg/dL 08/19/2019 2:49 [facility] CALCIUM - [facility] 8.6 8.5 - 10.5 mg/dL 08/19/2019 2:49 [facility] Chloride 107 96 - 110 mmol/L 08/19/2019 2:49 [facility] CO2 Total 22 22 - 32 mEq/L 08/19/2019 2:49 [facility] CREATININE 0.77 0.52 - 1.04 mg/dL 08/19/2019 2:49 [facility] eGFR >60 08/19/2019 2:49 [facility] Comment: Chronic renal impairment is defined as GFR <60 Multiply result by 1.210 for patients. eGFR calculated using the IDMS-traceable MDRD Study Equation. ??(effective 07/06/2014) Anion Gap 9 0 - 18 08/19/2019 2:49 [facility] GLUCOSE - [facility] 123(H) 70 - 100 mg/dL 08/19/2019 2:49 [facility] Potassium 3.4(L) 3.5 - 5.0 mEq/L 08/19/2019 2:49 [facility] Sodium 138 136 - 145 mEq/L 08/19/2019 2:49 [facility] 08/19/2019 2:20 EST 08/19/2019 2:[address] MD CHEMISTRY & BLOOD GAS ORDERAB LES Final Result [facility] * (ABNORMAL) COMPLETE BLOOD COUNT WITH DIFFERENTIAL (AUTO) (08/19/2019 2:20 EST) ABSOLUTE NEUTROPHIL COUN - [facility] 6.2 2.2 - 8.85 10e3/uL 08/19/2019 2:37 [facility] BASO # - [facility] 0.02 0.01 - 0.11 10e/uL 08/19/2019 2:37 [facility] BASO % - [facility] 0 0 - 2 % 08/19/2019 2:37 [facility] EOS # - [facility] 0.06 0.03 - 0.61 10e3/ul 08/19/2019 2:37 [facility] EOS % - [facility] 1 0 - 5 % 08/19/2019 2:37 [facility] GRAN % - [facility] 68.1 40 - 80 % 08/19/2019 2:37 [facility] HEMATOCRIT - [facility] 33.0(L) 34.9 - 44.4 % 08/19/2019 2:37 [facility] HEMOGLOBIN - [facility] 10.6(L) 11.6 - 15.2 g/dl 08/19/2019 2:37 [facility] IG# - [facility] 0.04 0 - 0.7 10e3/uL 08/19/2019 2:37 [facility] IG% - [facility] 0.4 0 - 0.9 % 08/19/2019 2:37 [facility] LYMPH # - [facility] 1.9 1.09 - 3.3 10e3/ul 08/19/2019 2:37 [facility] LYMPH% - [facility] 21.3 20 - 40 % 08/19/2019 2:37 [facility] MEAN CORPUSCULAR HGB - [facility] 28.4 26.7 - 33.3 pg 08/19/2019 2:37 [facility] MEAN CORPUSCULAR HGB CONC - [facility] 32.1 32.1 - 35.9 g/dL 08/19/2019 2:37 [facility] MEAN CELL VOLUME - [facility] 88.5 81 - 98 fl 08/19/2019 2:37 [facility] MONO # - [facility] 0.8 0.1 - 0.8 10e3/uL 08/19/2019 2:37 [facility] MONO% - [facility] 9.3 0 - 12 % 08/19/2019 2:37 [facility] PLATELET COUNT 264 141 - 377 10e3/ul 08/19/2019 2:37 [facility] RED BLOOD COUNT - [facility] 3.73(L) 3.86 - 5.04 10e3/ul 08/19/2019 2:37 [facility] RED CELL DISTRI WIDTH - [facility] 12.3 <14.7 % 08/19/2019 2:37 [facility] WHITE BLOOD COUNT - [facility] 9.0 4.0 - 12.4 10e3/ul 08/19/2019 2:37 [facility] 08/19/2019 2:20 EST 08/19/2019 2:[address] MD HEMATOLOGY & PF4 ORDERABLES F inal Result [facility] documented in this encounter Visit Diagnoses Not on filedocumented in this encounter Care Teams Seismology Technical Officer Relationship Specialty Start Date End Date Georgie Stewart, PCU RN [address] [place] [phone] PCP - General 07/07/19 documented as of this encounter
--- OUTSIDE RECORDS SUMMARY | 2024-10-08 16:22 | XMS_ITS | Encounter Summary ---
Author Organization [facility] Address [address] [place] [address] Care Team Providers Care Manager Cargo Name Role Phone Georgie Stewart RUBEN Primary Care Provider + Reason for Visit * Reason Onset Date Comments Prior Auth, Other (i.e. radi ology, etc.) 08/11/2019 PER MAILED MEDICAID [place] APPRO DASHAWN [id number] Encounter Details Date Type Department Care Team (Late st Contact Info) Description 08/11/2019 Telephone [facility] OBGYN [address] [place] [address] MD 130 [facility], [address] [place] [address] Prior Auth, Other (i.e. radiology, etc.) (PER [place]PR[place] [id number]) Social History Tobacco Use Types Packs/Day Years [...] 07/23/2019 14:32 EST documented in this encounter Miscellaneous Notes * Telephone Encounter - Kalani Cordova - 08/11/2019 1047 EST PER MAILED MEDICAID [place] APPROVED [id number] documented in this encounter Plan of Treatment Not on file documented as of this encounter Visit Diagnoses Not on filedocumented in this encounter Care Teams Manager Cargo Relationship Specialty Start Date End Date Georgie Stewart, THREAD GRINDER TOOL [address] [place] [address] PCP - General 07/07/19 documented as of this encounter
--- OUTSIDE RECORDS SUMMARY | 2024-10-08 16:22 | XMS_ITS | Encounter Summary ---
Author Organization [facility] Address [address] [place] [address] Care Team Providers Care Sales Service Technician Name Role Phone Jose Hillman MD Primary Care Provider Georgie Brennan APRN Primary Care Provider + Encounter Details Date Type Department Care Team (Late st Contact Info) Description 06/30/2019 Results Only [facility] Lab - Main [place] [address] [place] [address] MD [address] [place] [address], [address] [place] [address] Social History Tobacco Use Types [...] Procedure Name Priority Date/Time Associated Diagnosis Comments [facility] SCREEN - [facility] Routine 06/30/2019 11 :22 EDT COMPLETE BLOOD COUNT WITH DIFFERENTIAL (AUTO) Routine 06/30/2019 11:22 EDT TYPE AND SCREEN Routine 06/30/2019 11:22 EDT documented in this encounter Results * TYPE AND SCREEN (06/30/2019 11:22 EDT) [facility] O Positive [facility] Antibody Screen NEGATIVE [facility] Specimen Expires: 07-21-19 [id number] [facility] 06/30/2019 11:2 2 EDT 06/30/2019 11:22 EDT Narrative [facility] - 06/30/2019 11:12 EDT Does PT Have a Latex Allergy? YES IS THIS A PREOPERATIVE PATIENT? N us Swati Lane MD BLOOD BANK TESTS Final Result Performing Organization Address City/[facility]/ZIP Co de Phone Number [facility] * BHCG SCREEN - CV (06/30/2019 11:22 EDT) [facility] NEG 06/30/2019 11:43 EDT [facility] 06/30/2019 11:2 2 EDT 06/30/2019 11:22 EDT Narrative [facility] - 06/30/2019 11:43 EDT Does PT Have a Latex Allergy? YES Enter/Edit CPT and ICD codes? N us Swati Lane MD HEMATOLOGY & PF4 ORDERABLES F inal Result [facility] * COMPLETE BLOOD COUNT WITH DIFFERENTIAL (AUTO) (06/30/2019 11:22 EDT) Pathologist [facility] ABSOLUTE NEUTROPHIL COUN - [facility] 4.3 2.2 - 8.85 10e3/uL 06/30/2019 11:32 EDT [facility] BASO # - [facility] 0.05 0.01 - 0.11 10e/uL 06/30/2019 11:32 EDT [facility] BASO % - [facility] 1 0 - 2 % 06/30/2019 11:32 EDT [facility] EOS # - [facility] 0.16 0.03 - 0.61 10e3/ul 06/30/2019 11:32 EDT [facility] EOS % - [facility] 2 0 - 5 % 06/30/2019 11:32 [facility] GRAN % - [facility] 58.7 40 - 80 % 06/30/2019 11:32 [facility] HEMATOCRIT - [facility] 38.3 34.9 - 44.4 % 06/30/2019 11:32 [facility] HEMOGLOBIN - CV 12.6 11.6 - 15.2 g/dl 06/30/2019 11:32 [facility] IG# - [facility] 0.02 0 - 0.7 10e3/uL 06/30/2019 11:32 [facility] IG% - [facility] 0.3 0 - 0.9 % 06/30/2019 11:32 [facility] LYMPH # - [facility] 2.3 1.09 - 3.3 10e3/ul 06/30/2019 11:32 [facility] LYMPH% - [facility] 31.7 20 - 40 % 06/30/2019 11:32 [facility] MEAN CORPUSCULAR HGB - CV 30.6 26.7 - 33.3 pg 06/30/2019 11:32 [facility] MEAN CORPUSCULAR HGB CONC - [facility] 32.9 32.1 - 35.9 g/dL 06/30/2019 11:32 [facility] MEAN CELL VOLUME - CV 93.0 81 - 98 fl 06/30/2019 11:32 [facility] MONO # - [facility] 0.5 0.1 - 0.8 10e3/uL 06/30/2019 11:32 [facility] MONO% - [facility] 6.4 0 - 12 % 06/30/2019 11:32 [facility] PLATELET COUNT 331 141 - 377 10e3/ul 06/30/2019 11:32 [facility] RED BLOOD COUNT - CV 4.12 3.86 - 5.04 10e3/ul 06/30/2019 11:32 [facility] RED CELL DISTRI WIDTH - [facility] 12.1 <14.7 % 06/30/2019 11:32 [facility] WHITE BLOOD COUNT - [facility] 7.4 4.0 - 12.4 10e3/ul 06/30/2019 11:32 EDT [facility] 06/30/2019 11:2 2 EDT 06/30/2019 11:22 EDT Narrative [facility] - 06/30/2019 11:32 EDT Does PT Have a Latex Allergy? YES us Swati Lane MD HEMATOLOGY & PF4 ORDERABLES F inal Result [facility] documented in this encounter Visit Diagnoses Not on filedocumented in this encounter Care Teams Sales Service Technician Relationship Specialty Start Date End Date Jose Hillman MD PCP - General 04/02/09 07/06/19 Georgie Stewart, SURVEILLANCE INSPECTOR [address] [facility] [phone] PCP - General 07/07/19 documented as of this encounter
--- OUTSIDE RECORDS SUMMARY | 2024-10-08 16:22 | XMS_ITS | Encounter Summary ---
Author Organization [facility] Address [address] [place] [address] Care Team Providers Care Supply Chain Buyer Name Role Phone Georgie Stewart Pritesh MIRANDA Primary Care Provider + Reason for Visit * Reason Onset Date Comments Rash 08/22/2019 had lapro hyst. on Saturday 08/18, Encounter Details Date Type Department Care Team (Late st Contact Info) Description 08/22/2019 Telephone [facility] OBGYN [address] [place] [address] MD 130 [facility], [address] [place] [address] Rash (had lapro hyst. on [...] 07/23/2019 14:32 EST documented in this encounter Ordered Prescriptions Prescription Sig Dispense Quantity Refills Last Filled Start Date End Date nystatin (MYCOSTATIN) cream Apply thin layer to affected area twice day. 1 Tube 08/22/2019 0 documented in this encounter Miscellaneous Notes * [...] on filedocumented in this encounter Care Teams Supply Chain Buyer Relationship Specialty Start Date End Date Georgie Stewart, GAS WELL DRILLING MANAGER [address] [place] [phone] PCP - General 07/07/19 documented as of this encounter
--- OUTSIDE RECORDS SUMMARY | 2024-10-08 16:22 | XMS_ITS | Encounter Summary ---
Author Organization [facility] Address [address] [place] [address] Care Team Providers Care Literacy Education Professor Name Role Phone Arci Hurley MD Primary Care Provider Un available Encounter Details Date Type Department Care Team (Late st Contact Info) Description 02/01/2009 Orders Only [facility] Adult Primary Care - [address] [phone] Unknown, Provider, Social History Tobacco Use Types [...] (specimen) 02/01/2009 7:42 EDT 02/01/2009 22:23 EDT us Provider Unknown IMMUNOLOGY AND SEROLOGY ORDE CHICA Final Result Performing Organization Address [facility] Co de Phone Number [facility] [address] [place] [address] * SYPHILIS SERO (RPR) (02/01/2009 7:42 EDT) Pathologist [facility] Syphilis Sero (RPR) NONREACT. NR Dils [facility] Blood specimen (specimen) 02/01/2009 7:42 EDT 02/01/2009 22:23 EDT us Provider Unknown IMMUNOLOGY AND SEROLOGY ORDE CHICA Final Result Performing Organization Address [facility] Co de Phone Number [facility] [address] [place] [address] * RUBELLA IGG ANTIBODY (02/01/2009 7:42 EDT) Pathologist [facility] Rubella IgG Ab Antibody detected Assayed utilizing the DPC Immulite 2500. Values may vary with other methods. [facility] Blood specimen (specimen) 02/01/2009 7:42 EDT 02/01/2009 22:23 EDT us Provider Unknown CHEMISTRY & BLOOD GAS ORDERA BLES Final Result Performing Organization Address [facility] Co de Phone Number [facility] [address] [place] [address] * HEPATITS B SURFACE ANTIGEN (02/01/2009 7:42 EDT) Pathologist [facility] Hepatitis B Surface Ag Negative Reference Range: ??Negative [facility] Blood specimen (specimen) 02/01/2009 7:42 EDT 02/01/2009 22:23 EDT us Provider Unknown CHEMISTRY & BLOOD GAS ORDERA BLES Final Result Performing Organization Address [facility] Co de Phone Number [facility] [address] [place] [address] documented in this encounter Visit Diagnoses Not on filedocumented in this encounter Care Teams Literacy Education Professor Relationship Specialty Start Date End Date Aric Hurley MD PCP - General 01/13/09 04/01/09 documented as of this encounter
--- OUTSIDE RECORDS SUMMARY | 2024-10-08 16:22 | XMS_ITS | Encounter Summary ---
Author Organization [facility] Address [address] [place] [address] Care Team Providers Care Studio Engineer Name Role Phone StewartGeorgie banda Pritesh MIRANDA Primary Care Provider + Encounter Details Date Type Department Care Team (Late st Contact Info) Description 08/18/2019 Orders Only [facility] - [facility] [place] [address] [place] [address] MD 130 [facility], [address] [place] [address] Social History Tobacco Use Types [...] documented as of this encounter Care Teams Studio Engineer Relationship Specialty Start Date End Date Georgie Stewart, GREENHOUSE SUPERINTENDENT [address] [place] [phone] PCP - General 07/07/19 documented as of this encounter
--- OUTSIDE RECORDS SUMMARY | 2024-10-08 16:22 | XMS_ITS | Encounter Summary ---
Author Organization [facility] Address [address] [place] [address] Care Team Providers Care Physical Chemist Name Role Phone StewartGeorgie banda Pritesh MIRANDA Primary Care Provider + Encounter Details Date Type Department Care Team (Late st Contact Info) Description 08/18/2019 Results Only [facility]- [facility] [phone] MD [address] [place] [address], [address] [place] [address] Social History Tobacco Use Types [...] documented in this encounter Miscellaneous Notes * Result Encounter [...] - [facility] (08/18/2019 14:53 EST) HEMATOCRIT - [facility] 36.7 34.9 - 44.4 % 08/18/2019 15:03 EST [facility] HEMOGLOBIN - [facility] 11.8 11.6 - 15.2 g/dl 08/18/2019 15:03 EST [facility] 08/18/2019 14:5 3 EST 08/18/2019 14:[address] MD CHEMISTRY & BLOOD GAS ORDERAB LES Final Result [facility] * SURGICAL PATHOLOGY (08/18/2019) 08/18/2019 08/18/2019 13: 00 EST Narrative [facility] - 08/21/2019 10:15 EST ----- ------- Name: MAR[facility] ELENA FOR[facility] ? : 81 ?Age/Sex: 34/F ?Unit#: [id number] ? Loc: SDS ? Status: DEP SDC ?? Reg Date: 08/18/19 ? Pt.Phone Number: ? ----- ------- Specimen: [id number] ? STATUS: SOUT ?Spec Date:08/18/19 ? Physician Copies: ?Swati Lane MD ?? Tissues: A ?? Uterus other than neoplastic (UTERUS, CERVIX, BILATERAL TU) ??Georgie tSewart CPT: 90990 ?? Units: ??1 ?FINAL DIAGNOSIS ? UTERUS, [...] is bivalved revealing multiple ----- ------- Patient: LILIANAMARÍA ELENA M ? #[id number] ? (Continued) ----- ------- Specimen: [id number] ? Received: 08/18/19-1300 ?(Continued) ? GROSS DESCRIPTION ?(Continued) ? cortical cysts ranging from 0.1 cm to 0.7 cm in greatest dimension. ??Serial ? sections of the right fallopian tube reveals a pinpoint lumen. ??Serial sections ? of the left fallopian tube also reveal a pinpoint lumen. ??Transit Clerk ? section sections are submitted as follows: [...] Test Performed by [facility], [address] [place] [id number] Marine Electrician Apprentice: Yee Hines MD PHD ----- ------- us Swati Lane MD PATHOLOGY ORDERABLES Final [facility] documented in this encounter Visit Diagnoses Not on filedocumented in this encounter Care Teams Physical Chemist Relationship Specialty Start Date End Date Georgie Stewart, MARKETING DIRECTOR ASSISTED LIVING [address] [place] [phone] PCP - General 07/07/19 documented as of this encounter
--- OUTSIDE RECORDS SUMMARY | 2024-10-08 16:22 | XMS_ITS | Encounter Summary ---
Author Organization [facility] Address [address] [place] [address] Care Team Providers Care Cook Chili Name Role Phone StewartGeorgie banda Pritesh MIRANDA Primary Care Provider + Encounter Details Date Type Department Care Team (Late st Contact Info) Description 08/15/2019 Results Only [facility] [phone] MD [address] [place] [address], [address] [place] [address] Social History Tobacco Use Types [...] Procedure Name Priority Date/Time Associated Diagnosis Comments [facility] Routine 08/15/2019 7: 32 EST COMPLETE BLOOD COUNT WITH DIFFERENTIAL (AUTO) Routine 08/15/2019 7:32 EST TYPE AND SCREEN Routine 08/15/2019 7:32 EST documented in this encounter Results * TYPE AND SCREEN (08/15/2019 7:32 EST) [facility] O Positive [facility] Antibody Screen NEGATIVE [facility] Specimen Expires: 08/18/19 AT 23:59 [facility] Comment: PATIENT'S RESPONSES INDICATE A HISTORY OF SURGERY, TRANSFUSION OR WITHIN THE LAST 3 MONTHS. FOR BLOOD PRODUCTS, THIS SPECIMEN WILL OUTDATE 72 HOURS FROM THE TIME IT WAS COLLECTED. ??ANY BLOOD PRODUCTS ORDERED AFTER 72 HOURS MUST BE WORKED UP ON A NEW SPECIMEN. 08/15/2019 7:32 EST 08/15/2019 7:32 EST Narrative [facility] - 08/15/2019 7:26 EST Does PT Have a Latex Allergy? YES IS THIS A PREOPERATIVE PATIENT? N Swati Lane MD BLOOD BANK TESTS Final Result [facility] * [facility] (08/15/2019 7:32 EST) [facility] NEG 08/15/2019 9:28 [facility] 08/15/2019 7:32 EST 08/15/2019 7:32 EST Narrative [facility] - 08/15/2019 9:28 EST Does PT Have a Latex Allergy? YES Enter/Edit CPT and ICD codes? N us Swati Lane MD HEMATOLOGY & PF4 ORDERABLES F inal Result [facility] * (ABNORMAL) COMPLETE BLOOD COUNT WITH DIFFERENTIAL (AUTO) (08/15/2019 7:32 EST) ABSOLUTE NEUTROPHIL COUN - [facility] 2.7 2.2 - 8.85 10e3/uL 08/15/2019 8:48 [facility] BASO # - [facility] 0.04 0.01 - 0.11 10e/uL 08/15/2019 8:48 [facility] BASO % - [facility] 1 0 - 2 % 08/15/2019 8:48 [facility] EOS # - [facility] 0.08 0.03 - 0.61 10e3/ul 08/15/2019 8:48 [facility] EOS % - [facility] 2 0 - 5 % 08/15/2019 8:48 [facility] GRAN % - [facility] 56.7 40 - 80 % 08/15/2019 8:48 [facility] HEMATOCRIT - [facility] 40.7 34.9 - 44.4 % 08/15/2019 8:48 [facility] HEMOGLOBIN - [facility] 13.0 11.6 - 15.2 g/dl 08/15/2019 8:48 [facility] IG# - [facility] 0.02 0 - 0.7 10e3/uL 08/15/2019 8:48 [facility] IG% - [facility] 0.4 0 - 0.9 % 08/15/2019 8:48 [facility] LYMPH # - [facility] 1.4 1.09 - 3.3 10e3/ul 08/15/2019 8:48 [facility] LYMPH% - [facility] 29.4 20 - 40 % 08/15/2019 8:48 [facility] MEAN CORPUSCULAR HGB [place] [facility] 27.8 26.7 - 33.3 pg 08/15/2019 8:48 [facility] MEAN CORPUSCULAR HGB CONC [place] [facility] 31.9(L) 32.1 - 35.9 g/dL 08/15/2019 8:48 [facility] MEAN CELL VOLUME [place] [facility] 87.0 81 - 98 fl 08/15/2019 8:48 [facility] MONO # - [facility] 0.5 0.1 - 0.8 10e3/uL 08/15/2019 8:48 [facility] MONO% [place] [facility] 11.0 0 - 12 % 08/15/2019 8:48 [facility] PLATELET COUNT 297 141 - 377 10e3/ul 08/15/2019 8:48 [facility] RED BLOOD COUNT [place] [facility] 4.68 3.86 - 5.04 10e3/ul 08/15/2019 8:48 [facility] RED CELL DISTRI WIDTH [place] [facility] 12.3 <14.7 % 08/15/2019 8:48 [facility] WHITE BLOOD COUNT - [facility] 4.8 4.0 - 12.4 10e3/ul 08/15/2019 8:48 [facility] 08/15/2019 7:32 EST 08/15/2019 7:32 EST Narrative [facility] - 08/15/2019 8:48 EST Does PT Have a Latex Allergy? YES us Swati Lane MD HEMATOLOGY & PF4 ORDERABLES F inal Result [facility] documented in this encounter Visit Diagnoses Not on filedocumented in this encounter Care Teams Cook Chili Relationship Specialty Start Date End Date Georgie Stewart, EMERGENCY OPERATOR [address] [place] [address] PCP - General 07/07/19 documented as of this encounter
--- OUTSIDE RECORDS SUMMARY | 2024-10-08 16:22 | XMS_ITS | Encounter Summary ---
Author Organization [facility] Address [address] [place] [address] Care Team Providers Care Pediatric Clinical Dietician Name Role Phone StewartGeorgie banda Pritesh MIRANDA Primary Care Provider + Encounter Details Date Type Department Care Team (Late st Contact Info) Description 09/23/2019 Results Only Imaging [facility] [place] Results [address] [place] [address] Gerald Dumont MD [facility] [address] [place] [phone] Social History Tobacco Use Types Packs/Day Years [...] Procedure Name Priority Date/Time Associated Diagnosis Comments ABDOMEN W WO CONTRAST 09/23/2019 11:54 EST [...] CC: Swati Lane MD; Georgie Stewart APRN FORENSIC DOCUMENT EXAMINER-BC ? Transcribed Date/Time: 09/23/2019 (1969) ? Garment Patternmaker: ? Printed Date/Time: 09/23/2019 (1019) ? PAGE 2 ? Signed Report ? [...] CC: Swati Lane MD; Georgie Stewart APRN FORENSIC DOCUMENT EXAMINER-BC Transcribed Date/Time: 09/23/2019 (5403) Garment Patternmaker: Printed Date/Time: 09/23/2019 (0306) PAGE 2 Signed Report Gerald Dumont MD IMG MRI ORDERABLES Final Result documented in this encounter Visit Diagnoses Not on filedocumented in this encounter Care Teams Pediatric Clinical Dietician Relationship Specialty Start Date End Date Georgie Stewart APRN [address] [facility] [place] [phone] PCP - General 07/07/19 documented as of this encounter
--- OUTSIDE RECORDS SUMMARY | 2024-10-08 16:22 | XMS_ITS | Encounter Summary ---
Author Organization [facility] Address [address] [place] [address] Care Team Providers Care County Nurse Name Role Phone Georgie Stewart Pritesh MIRANDA Primary Care Provider + Reason for Visit * Reason Comments Follow-up S/P HYST Encounter Details Date Type Department Care Team (Late st Contact Info) Description 09/04/2019 9:40 EST Office Visit [facility] [place] O[place] [address] [place], [place] [phone] Swati Lane MD [address] [facility], [address] [place] [address] Post-operative state (Primary Dx) Social [...] of liver Skin: Rash resolved with nystatin PHP SOFTWARE ENGINEER History: Patient's last menstrual period was 06/05/2019 [...] HYSTEROSCOPY 03/21, 06/21 ??? TUBAL LIGATION Bilateral 2008 Social History Tobacco Use ??? Smoking status: Never Smoker ??? Smokeless tobacco: Never Used Substance Use Topics ??? Alcohol use: Never Frequency: Never ??? Drug use: Never Family History Problem Relation Age of Onset ??? Heart Disease Mother had stent ??? Diabetes Sister ??? Kidney Cancer Maternal Grandmother ??? Ovarian Cancer Cousin Allergies Allergen Reactions ??? Codeine Anaphylaxis ??? Mhxgedb-Jkf-An-Acetaminophen Anaphylaxis ??? Sulfa (Sulfonamide Antibiotics) Anaphylaxis ??? Aspirin Other reaction(s): unsure of reaction ??? Crowley And Derivatives Other reaction(s): rash and hives [...] may reflect changes made after this encounter. omeprazole (PRILOSEC) 20 mg capsuleIndication s:gastroesophagea l reflux disease,heartburn Take 20 mg by mouth every morning. 10/07/2019 added in this encounter Care Teams County Nurse Relationship Specialty Start Date End Date Georgie Stewart APRN [address] [place] [phone] PCP - General 07/07/19 documented as of this encounter
--- OUTSIDE RECORDS SUMMARY | 2024-10-08 16:22 | XMS_ITS | Encounter Summary ---
Author Organization [facility] Address [address] [place] [address] Care Team Providers Care Visual Education Director Name Role Phone Georgie Stewart Pritesh MIRANDA Primary Care Provider + Reason for Visit * Reason Onset Date Comments Rash 08/22/2019 Pt had a procedu re Sunday, this morning she woke up with a rash, like three on the left side of her belly. Encounter Details Date Type Department Care Team (Late st Contact Info) Description 08/22/2019 Telephone [facility] OBGYN [address] [place] [address] MD [address] [facility], [address] [place] [address] Rash (Pt had a procedure [...] on filedocumented in this encounter Care Teams Visual Education Director Relationship Specialty Start Date End Date Georgie Stewart APRN [address] [place] [phone] PCP - General 07/07/19 documented as of this encounter
--- OUTSIDE RECORDS SUMMARY | 2024-10-08 16:22 | XMS_ITS | Encounter Summary ---
Author Organization [facility] Address [address] [place] [address] Care Team Providers Care Potable Water Treatment Operator Name Role Phone Jose Hillman MD Primary Care Provider Unav ailable Encounter Details Date Type Department Care Team (Latest Contact Info) Description 05/19/2019 11:21 EDT - 05/19/2019 23:59 EDT Hospital Encounter [facility] [address] [place] [address] Unknown, Provider, MD Discharge Disposition: Home or [...] Code Departure Means Destination Home or Self [facility] documented in this encounter Plan of Treatment Not on file documented as of this encounter Visit Diagnoses Not on filedocumented in this encounter Care Teams Potable Water Treatment Operator Relationship Specialty Start Date End Date Jose Hillman MD PCP - General 04/02/09 07/06/19 documented as of this encounter
--- OUTSIDE RECORDS SUMMARY | 2024-10-08 16:22 | XMS_ITS | Encounter Summary ---
Author Organization [facility] Address [address] [place] [address] Care Team Providers Care Olive Grader Name Role Phone StewartGeorgie banda Pritesh MIRANDA Primary Care Provider + Encounter Details Date Type Department Care Team (Late st Contact Info) Description 08/20/[address] [facility] [place] Radiology Results [address] [place] [address] MD [address] [facility], [address] [place] [address] Social History Tobacco Use Types [...] EXAM: ULTRASOUND/DOPPLER VEIN LOWER EXT. ??EX. D/ (2774) ? CLINICAL INFORMATION: ? SLLL - Swelling [...] CC: ? Transcribed Date/Time: 08/20/2019 (1429) ? Paper Counter: ? Printed Date/Time: 08/20/2019 (1430) ? PAGE 1 ? Signed Report ? Procedure Note Dar Bolivar MD - 08/20/2019 EXAM: ULTRASOUND/DOPPLER VEIN LOWER EXT. EX. D/ (3634) CLINICAL INFORMATION: SLLL - Swelling left lower [...] Dar Bolivar MD CC: Transcribed Date/Time: 08/20/2019 (5515) Paper Counter: Printed Date/Time: 08/20/2019 (9839) PAGE 1 Signed Report us Swati Lane MD IMG US ORDERABLES Final Resul t documented in this encounter Visit Diagnoses Not on filedocumented in this encounter Care Teams Olive Grader Relationship Specialty Start Date End Date Georgie Stewart, THERAPEUTIC ACTIVITIES SERVICES WORKER [address] [place] [phone] PCP - General 07/07/19 documented as of this encounter
--- OUTSIDE RECORDS SUMMARY | 2024-10-08 16:22 | XMS_ITS | Encounter Summary ---
Author Organization [facility] Address [address] [place] [address] Care Team Providers Care Advertiser Name Role Phone Jose Hillman MD Primary Care Provider Unav ailable Encounter Details Date Type Department Care Team (Late st Contact Info) Description 05/19/[address] [facility] Radiology Results [address] [place] [address] MD 130 [facility], [address] [place] [address] Social History Tobacco Use Types [...] noncritical result requiring ? follow-up on the [employer] PACS findings application, to be tracked by ? the [facility] tracking system. ? REPORT SIGNED IN OTHER VENDOR SYSTEM 05/19/2019 ?Reported By: Isaak Gautam MD ? CC: ? Transcribed Date/Time: 05/19/2019 (0831) ? Buffer Operator: ? Printed Date/Time: 05/21/2019 (1721) ? PAGE 2 ? Signed Report ? Procedure Note Isaak Gautam MD, - 07/08/2019 EXAM: ULTRASOUND/ABDOMINAL MULTIPLE ORGAN EX. [...] a noncritical result requiring follow-up on the [employer] PACS findings application, to be tracked by the [facility] tracking system. REPORT SIGNED IN OTHER VENDOR SYSTEM 05/19/2019 Reported By: Isaak Gautam MD CC: Transcribed Date/Time: 05/19/2019 (0831) Buffer Operator: [email or web address] Printed Date/Time: 05/21/2019 (1725) PAGE 2 Signed Report us Swati Lane MD IMG US ORDERABLES Final Resul t documented in this encounter Visit Diagnoses Not on filedocumented in this encounter Care Teams Advertiser Relationship Specialty Start Date End Date Jose Hillman MD PCP - General 04/02/09 07/06/19 documented as of this encounter
--- OUTSIDE RECORDS SUMMARY | 2024-10-08 16:22 | XMS_ITS | Encounter Summary ---
Author Organization [facility] Address [address] [place] [address] Care Team Providers Care Side Show Entertainer Name Role Phone Jose Hillman MD Primary Care Provider Georgie Brennan APRN Primary Care Provider + Encounter Details Date Type Department Care Team (Late st Contact Info) Description 07/01/2019 Results Only [facility] - [facility] [place] [address] [place] [address] MD [address] [place] [address], [address] [place] [address] Social History Tobacco Use Types [...] PATHOLOGY (07/01/2019) 07/01/2019 07/01/2019 9:2 1 EDT Narrative [facility] - 07/04/2019 16:42 EDT ----- ------- Name: MARÍA ELENA FORD ? : 81 ?Age/Sex: 33/F ?Unit#: [id number] ? Loc: SDS ? Status: DEP SDC ?? Reg Date: 07/01/19 ? Pt.Phone Number: ? ----- ------- Specimen: [id number] ? STATUS: SOUT ?Spec Date:07/01/19 ? Physician Copies: ?Swati Lane MD ?? Tissues: A ?? Endometrial curettings ? Georgie Stewart CPT: 44665 ?? Units: ??1 ? [id number] ? 1 ?FINAL DIAGNOSIS ? ENDOMETRIUM, CURETTAGE; [...] reagents' performance characteristics have been determined by [facility] and/or by the referring laboratory. ??The positive and negative controls worked appropriately. If immunoperoxidase staining has been performed on alcohol fixed cytology specimens, which has not been fully validated, the assays should be interpreted with caution and correlated with clinical data. ??This laboratory is certified under the Clinical Laboratory Improvement Amendments of 1987 ----- ------- Patient: MARÍA ELENA FORD ? #[id number] ? (Continued) ----- ------- Specimen: [id number] ? Received: 07/01/19 ?(Continued) ?COMMENT ? (Continued) [...] above diagnosis. Test Performed by [facility], [address] [place] [id number] Engineering Instructor: Yee Hines MD PHD ----- ------- us Swati Lane MD PATHOLOGY ORDERABLES Final Re [facility] Organization Address City/State/ZIP Co de Phone Number [facility] documented in this encounter Visit Diagnoses Not on filedocumented in this encounter Care Teams Side Show Entertainer Relationship Specialty Start Date End Date Jose Hillman MD PCP - General 04/02/09 07/06/19 Georgie Stewart, CREDIT REVIEW OFFICER [address] [place] [phone] PCP - General 07/07/19 documented as of this encounter
--- OUTSIDE RECORDS SUMMARY | 2024-10-08 16:22 | XMS_ITS | Encounter Summary ---
Author Organization [facility] Address [address] [place] [address] Care Team Providers Care Supervisor Stage Carpentry Name Role Phone Jose Hillman MD Primary Care Provider Unav ailable Encounter Details Date Type Department Care Team (Latest Contact Info) Description 04/06/2009 12:54 EDT - 04/06/2009 23:59 EDT Hospital Encounter [facility] [place] [address] [place] [address] Theo Mchugh MD Discharge Disposition: Home or [...] Code Departure Means Destination Home or Self Custodial documented in this encounter Plan of Treatment [...] MARÍA ELENA FORD ? Accession #: ? [id number] ? : ? 1985 (Age: 24) ??F [...] End of Report ? MARÍA ELENA LAU 08/09/2009 08/10/2009 us Abner Royal MD PATHOLOGY ORDERABLES Final Res ult [facility] [address] [place] [address] documented in this encounter Visit Diagnoses Not on filedocumented in this encounter Care Teams Supervisor Stage Carpentry Relationship Specialty Start Date End Date Jose Hillman MD PCP - General 04/02/09 07/06/19 documented as of this encounter
--- OUTSIDE RECORDS SUMMARY | 2024-10-08 16:22 | XMS_ITS | Encounter Summary ---
Author Organization [facility] Address [address] [place] [address] Care Team Providers Care Vertica Architect Name Role Phone Georgie Stewart Pritesh MIRANDA Primary Care Provider + Reason for Visit * Reason Onset Date Comments Medications Refill 08/21/2019 Pt is wonderi ng if provider could prescribe ibprophin the over the counter isn't working, Pt had surgery on Sunday, pain is every 5 hours. [facility] in [place] is her preferred pharmacy. Encounter Details Date Type Department Care Team (Late st Contact Info) Description 08/21/2019 Refill [facility] OBGYN [address] [place] [address] MD [address] [facility], [address] [place] [address] Medications Refill (Pt is wondering if provider could prescribe ibprophin the over the counter isn't working, Pt had surgery on Sunday, pain is every 5 hours. [facility] in [place] is her preferred pharmacy. ) Social History [...] Refills Last Filled Start Date End Date ibuprofen (MOTRIN) 800 mg tablet Take 1 [...] dose of ibuprofen so will send to [facility] in [place]. * Telephone Encounter - Rani Reyes RN - 08/21/2019 [...] on Sunday, pain is every 5 hours. [email or web address] in [place] is her preferred pharmacy. documented in this [...] documented as of this encounter Care Teams Vertica Architect Relationship Specialty Start Date End Date Georgie Stewart, RUBEN [address] [place] [phone] PCP - General 07/07/19 documented as of this encounter
--- OUTSIDE RECORDS SUMMARY | 2024-10-08 16:22 | XMS_ITS | Encounter Summary ---
Author Organization [facility] Address [address] [place] [address] Care Team Providers Care Manager Auto Name Role Phone Jose Hillman MD Primary Care Provider Unav ailable Encounter Details Date Type Department Care Team (Latest Contact Info) Description 01/03/2019 11:18 EDT - 01/03/2019 23:59 EDT Hospital Encounter [facility] [address] [place] [address] Unknown, Provider, MD Discharge Disposition: Home or [...] Code Departure Means Destination Home or Self Jail documented in this encounter Plan of Treatment Not on file documented as of this encounter Visit Diagnoses Not on filedocumented in this encounter Care Teams Manager Auto Relationship Specialty Start Date End Date Jose Hillman MD PCP - General 04/02/09 07/06/19 documented as of this encounter
--- OUTSIDE RECORDS SUMMARY | 2024-10-08 16:22 | XMS_ITS | Encounter Summary ---
Author Organization [facility] Address [address] [place] [address] Care Team Providers Care Change Control Manager Name Role Phone StewartGeorgie banda Pritesh MIRANDA Primary Care Provider + Encounter Details Date Type Department Care Team (Late st Contact Info) Description 09/09/2019 Results Only [facility] [phone] Lucas Turcios MD [address] [place] [phone] Social History Tobacco Use Types Packs/Day [...] Priority Date/Time Associated Diagnosis Comments URINALYSIS/COMPLETE - [facility] Routine 09/09/2019 4:20 EST COMPLETE BLOOD COUNT WITH DIFFERENTIAL (AUTO) Routine 09/09/2019 4:19 EST C REACTIVE PROTEIN Routine 09/09/2019 4: 19 EST COMPREHENSIVE METABOLIC PANEL (CMP) Routine 09/09/2019 4:19 EST documented in this encounter Results * URINALYSIS/COMPLETE - [facility] (09/09/2019 4:20 EST) URINE APPEARANCE - [facility] Clear CLEAR 09/09/2019 4:44 [facility] URINE BACTERIA - [facility] FEW 09/09/2019 4:50 [facility] URINE BILIRUBIN - DIPSTICK - [facility] 1+ NEGATIVE 09/09/2019 4:44 [facility] Comment: Unable to confirm positive urine bilirubin. If clinical correlation is inconsistent, consider serum bilirubin. URINE BLOOD - [facility] 3+ NEG 09/09/2019 4:44 [facility] URINE COLOR - [facility] Yellow YELLOW 09/09/2019 4:44 [facility] URINE GLUCOSE - [facility] - [facility] Negative NEGATIVE 09/09/2019 4:44 [facility] URINE KETONE - [facility] Trace NEGATIVE 09/09/2019 4:44 [facility] URINE LEUK ESTERASE - [facility] 1+ NEG 09/09/2019 4:44 [facility] URINE NITRITE - [facility] - [facility] Negative NEG 09/09/2019 4:44 [facility] URINE PH - [facility] 5.5 4.0 - 8.0 [address] [facility] URINE PROTEIN - [facility] - [facility] Trace NEG 09/09/2019 4:44 [facility] URINE RBC - [facility] 15-20 rbc/hpf 09/09/19 20 4:50 [facility] URCULTIF+? - [facility] Culture Ordered 09/09/2019 4:50 [facility] URINE SPECIFIC GRAVITY - [facility] >=1.030 1.001 - 1.035 09/09/2019 4:44 [facility] URINE SQUAMOUS CELLS - [facility] FEW NEG #/hpf 09/09/2019 4:50 [facility] URINE UROBILINOGEN - [facility] - [facility] 0.2 0.2 - 1.0 09/09/2019 4:44 [facility] URINE WBC - [facility] 10-15 NEG wbc/hpf 020 4:50 [facility] 09/09/2019 4:20 EST 09/09/2019 4:24 EST Lucas Turcios MD CHEMISTRY & BLOOD GAS ORDERABLES Final Result Performing Organization Address [facility] Co de Phone Number [facility] * (ABNORMAL) C REACTIVE PROTEIN (09/09/2019 4:19 EST) C-Reactive Protein 10.2(H) <10.0 mg/L 09/09/2019 4:41 [facility] 09/09/2019 4:19 EST 09/09/2019 4:24 EST Lucas Turcios MD CHEMISTRY & BLOOD GAS ORDERABLES Final Result Performing Organization Address [facility]/ZIP Co de Phone Number [facility] * (ABNORMAL) COMPREHENSIVE METABOLIC PANEL (CMP) (09/09/2019 4:19 EST) Albumin % 4.0 3.4 - 4.9 g/dL 09/09/2019 4:41 [facility] ALKALINE PHOSPHATASE - [facility] 84 38 - 126 U/L 09/09/2019 4:41 [facility] BILIRUBIN TOTAL 0.2 0.2 - 1.3 mg/dL 09/09/2019 4:41 [facility] BUN - [facility] 21 10 - 26 mg/dL 09/09/2019 4:41 [facility] CALCIUM - [facility] 9.5 8.5 - 10.5 mg/dL 09/09/2019 4:41 [facility] Chloride 108 96 - 110 mmol/L 09/09/2019 4:41 [facility] CO2 Total 22 22 - 32 mEq/L 09/09/2019 4:41 [facility] CREATININE 0.77 0.52 - 1.04 mg/dL 09/09/2019 4:41 [facility] eGFR >60 09/09/2019 4:41 [facility] Comment: Chronic renal impairment is defined as GFR <60 Multiply result by 1.210 for patients. eGFR calculated using the IDMS-traceable MDRD Study Equation. ??(effective 07/06/2014) Anion Gap 9 0 - 18 09/09/2019 4:41 [facility] GLUCOSE - [facility] 112(H) 70 - 100 mg/dL 09/09/2019 4:41 [facility] Potassium 3.9 3.5 - 5.0 mEq/L 09/09/2019 4:41 [facility] Sodium 139 136 - 145 mEq/L 09/09/2019 4:41 [facility] TOTAL PROTEIN - [facility] 7.3 6.2 - 8.2 gm/dL 09/09/2019 4:41 [facility] SGOT/AST - [facility] 18 14 - 36 U/L 09/09/2019 4:41 [facility] SGPT/ALT - [facility] 29 9 - 52 U/L 0 4:41 [facility] 09/09/2019 4:19 EST 09/09/2019 4:24 EST us Lucas Turcios MD CHEMISTRY & BLOOD GAS ORDERABLES Final Result [facility] * (ABNORMAL) COMPLETE BLOOD COUNT WITH DIFFERENTIAL (AUTO) (09/09/2019 4:19 EST) Gran # 4.4 2.2 - 8.85 10e3/uL 09/09/2019 4:37 [facility] BASO # - [facility] 0.06 0.01 - 0.11 10e/uL 09/09/2019 4:37 [facility] BASO % - [facility] 1 0 - 2 % 09/09/2019 4:37 [facility] EOS # - [facility] 0.40 0.03 - 0.61 10e3/ul 09/09/2019 4:37 [facility] EOS % - [facility] 5 0 - 5 % 09/09/2019 4:37 [facility] GRAN % - [facility] 56.4 40 - 80 % 09/09/2019 4:37 [facility] HEMATOCRIT - [facility] 40.6 34.9 - 44.4 % 09/09/2019 4:37 [facility] HEMOGLOBIN - [facility] 12.7 11.6 - 15.2 g/dl 09/09/2019 4:37 [facility] IG# - [facility] 0.04 0 - 0.7 10e3/uL 09/09/2019 4:37 [facility] IG% - [facility] 0.5 0 - 0.9 % 09/09/2019 4:37 [facility] LYMPH # - [facility] 2.4 1.09 - 3.3 10e3/ul 09/09/2019 4:37 [facility] LYMPH% - [facility] 31.1 20 - 40 % 09/09/2019 4:37 [facility] MEAN CORPUSCULAR HGB - [facility] 27.0 26.7 - 33.3 pg 09/09/2019 4:37 [facility] MEAN CORPUSCULAR HGB CONC - [facility] 31.3(L) 32.1 - 35.9 g/dL 09/09/2019 4:37 [facility] MEAN CELL VOLUME - [facility] 86.2 81 - 98 fl 09/09/2019 4:37 [facility] MONO # - [facility] 0.5 0.1 - 0.8 10e3/uL 09/09/2019 4:37 [facility] MONO% - [facility] 6.1 0 - 12 % 09/09/2019 4:37 [facility] PLATELET COUNT 346 141 - 377 10e3/ul 09/09/2019 4:37 [facility] RED BLOOD COUNT - [facility] 4.71 3.86 - 5.04 10e3/ul 09/09/2019 4:37 [facility] RED CELL DISTRI WIDTH - [facility] 12.7 <14.7 % 09/09/2019 4:37 [facility] WHITE BLOOD COUNT - [facility] 7.9 4.0 - 12.4 10e3/ul 09/09/2019 4:37 [facility] 09/09/2019 4:19 EST 09/09/2019 4:24 EST Lucas Turcios MD HEMATOLOGY & PF4 ORDER RAFAEL Final Result [facility] documented in this encounter Visit Diagnoses Not on filedocumented in this encounter Care Teams Change Control Manager Relationship Specialty Start Date End Date Georgie Stewart, OBJECTS CONSERVATOR [address] [place] [phone] PCP - General 07/07/19 documented as of this encounter
--- OUTSIDE RECORDS SUMMARY | 2024-10-08 16:22 | XMS_ITS | Encounter Summary ---
Author Organization [facility] Address [address] [place] [address] Care Team Providers Care Director Of Search Engine Marketing Name Role Phone Georgie Stewart APRN Primary Care Provider + Reason for Referral * Laboratory Services (Routine) - New Request Specialty Diagnoses / Procedures Referred By Contac t Referred To Contact Diagnoses DUB (dysfunctional uterine bleeding) Procedures MISCELLANEOUS TEST, NON MARCOS Swati Lane MD Phone: tel: fax: Referral ID Status Reason Start Date Expiration Date V isits Requested Visits Authorized [id number] New Request 2019 1 1 * Laboratory Services (Routine) - New Request Specialty Diagnoses / Procedures Referred By Contac t Referred To Contact Diagnoses DUB (dysfunctional uterine bleeding) Procedures HEMOGLOBIN A1C Swati Lane MD Phone: tel: fax: Referral ID Status Reason Start Date Expiration Date V isits Requested Visits Authorized [id number] New Request 2019 1 1 * Laboratory Services (Routine) - New Request Specialty Diagnoses / Procedures Referred By Contac t Referred To Contact Diagnoses DUB (dysfunctional uterine bleeding) Procedures PRE-OP BLOOD BANK DRAW Rani Reyes RN Referral ID Status Reason Start Date Expiration Date V isits Requested Visits Authorized [id number] New Request 2019 1 1 * Laboratory Services (Routine) - New Request Specialty Diagnoses / Procedures Referred By Contac t Referred To Contact Diagnoses DUB (dysfunctional uterine bleeding) Procedures CREATININE Swati Lane MD Phone: tel: fax: Referral ID Status Reason Start Date Expiration Date V isits Requested Visits Authorized [id number] New Request 2019 1 1 * Laboratory Services (Routine) - New Request Specialty Diagnoses / Procedures Referred By Contac t Referred To Contact Diagnoses DUB (dysfunctional uterine bleeding) Procedures GLUCOSE, SERUM Swati Lane MD Phone: tel: fax: Referral ID Status Reason Start Date Expiration Date V isits Requested Visits Authorized [id number] New Request 2019 1 1 * Laboratory Services (Routine) - New Request Specialty Diagnoses / Procedures Referred By Contac t Referred To Contact Diagnoses DUB (dysfunctional uterine bleeding) Procedures COMPLETE BLOOD COUNT AND DIFFERENTIAL Swati Lane MD Phone: tel: fax: Referral ID Status Reason Start Date Expiration Date V isits Requested Visits Authorized [id number] New Request 2019 1 1 Reason for Visit * Reason Onset Date Comments Orders (Non Pre-visit) 2019 preop lab orders Encounter Details Date Type Department Care Team (Late st Contact Info) Description 2019 Telephone [facility] OBGYN [address] [place] [address] Rani Reyes RN Orders (Non Pre-visit) (preop [...] uterine bleeding) Ordered: 2019 MISCELLANEOUS TEST, NON [place] [facility] Routine DUB (dysfunctional uterine bleeding) Ordered: [...] 5.2 4.0 - 6.0 % 08/15/2019 13:00 EST [facility] Comment: > or [...] years): <7.5% Est Avg Glucose 103 mg/dL 9 13:00 EST [facility] Blood VENOUS BLOOD / Unknown 08/15/2019 7:31 EST 08/15/2019 7:32 EST Narrative [facility] - 08/15/2019 13:00 EST Does PT Have a Latex Allergy? YES us Swati Lane MD CHEMISTRY & BLOOD GAS ORDERAB LES Final Result Performing Organization Address [facility]/ZIP Co de Phone Number [facility] * CREATININE (08/15/2019 7:31 EST) Pathologist [facility] CREATININE 0.80 0.52 - 1.04 mg/dL 08/15/2019 9:23 [facility] eGFR >60 08/15/2019 9:23 [facility] Comment: Chronic renal impairment is defined as GFR <60 Multiply result by 1.210 for patients. eGFR calculated using the IDMS-traceable MDRD Study Equation. ??(effective 07/06/2014) Blood VENOUS BLOOD / Unknown 08/15/2019 7:31 EST 08/15/2019 7:31 EST Narrative [facility] - 08/15/2019 9:23 EST Does PT Have a Latex Allergy? YES us Swati Lane MD CHEMISTRY & BLOOD GAS ORDERAB LES Final Result [facility] * GLUCOSE, SERUM (08/15/2019 7:31 EST) Pathologist [facility] GLUCOSE - [facility] 99 70 - 100 mg/dL 08/15/2019 9:23 EST [facility] Blood VENOUS BLOOD / Unknown 08/15/2019 7:31 EST 08/15/2019 7:31 EST Narrative [facility] - 08/15/2019 9:23 EST Does PT Have a Latex Allergy? YES us Swati Lane MD CHEMISTRY & BLOOD GAS ORDERAB LES Final Result [facility] documented in this encounter Visit Diagnoses Diagnosis DUB (dysfunctional uterine bleeding)- Primary Other disorder of menstruation and other abnormal bleeding from female genital tract documented in this encounter Care Teams Director Of Search Engine Marketing Relationship Specialty Start Date End Date Georgie Stewart, OBSTETRICS GYN [address] [place] [phone] PCP - General 07/07/19 documented as of this encounter
--- OUTSIDE RECORDS SUMMARY | 2024-10-08 16:23 | XMS_ITS | Encounter Summary ---
Author Organization [facility] Address [address] [place] [address] Care Team Providers Care Canvas Shop Laborer Name Role Phone Jose Hillman MD Primary Care Provider Unav Aric Chow MD Primary Care Provider Un available Encounter Details Date Type Department Care Team (Late st Contact Info) Description 03/12/2007 Results Only [facility] - [facility] conversion [address] [place] [address] Unknown, Provider, Social History Tobacco Use Types [...] LAB 03/12/2007 9:55 EDT 03/12/2007 22:19 EDT us Provider Unknown CHEMISTRY & BLOOD GAS ORDERA BLES Final Result Performing Organization Address [facility]/State/ZIP Co de Phone Number [facility] [address] [place] [address] * SYPHILIS SERO (RPR) (03/12/2007 9:55 EDT) Syphilis Sero (RPR) NONREACT. NR Dils [facility] 03/12/2007 9:55 EDT 03/12/2007 22:19 EDT us Provider Unknown IMMUNOLOGY AND SEROLOGY ORDE RABLES Final Result Performing Organization Address [facility] Co de Phone Number [facility] [address] [place] [address] * HIV ANTIBODY (NATHANAEL) (03/12/2007 9:55 EDT) HIV 1/2 Antibody NONREACT. NR [facility] 03/12/2007 9:55 EDT 03/12/2007 22:19 EDT us Provider Unknown IMMUNOLOGY AND SEROLOGY ORDE RABLES Final Result Performing Organization Address [facility] Co de Phone Number [facility] [address] [place] [address] * HEPATITIS B SURFACE ANTIGEN (03/12/2007 9:55 EDT) Hepatitis B Surface Ag Neg [facility] 03/12/2007 9:55 EDT 03/12/2007 22:19 EDT us Provider Unknown CHEMISTRY & BLOOD GAS ORDERA BLES Final Result Performing Organization Address [facility] Co de Phone Number [facility] [address] [place] [address] documented in this encounter Visit Diagnoses Not on filedocumented in this encounter Care Teams Canvas Shop Laborer Relationship Specialty Start Date End Date Jose Hillman MD PCP - General 04/02/09 07/06/19 Aric Hurley MD PCP - General 01/13/09 04/01/09 documented as of this encounter
--- OUTSIDE RECORDS SUMMARY | 2024-10-08 16:23 | XMS_ITS | Encounter Summary ---
Author Organization [facility] Address [address] [place] [address] Care Team Providers Care Medical Assistant Supervisor Name Role Phone Jose Hillman MD Primary Care Provider Unav Aric Chow MD Primary Care Provider Un available Encounter Details Date Type Department Care Team (Late st Contact Info) Description 04/12/2006 Results Only [facility] - [place] conversion [address] [place] [address] Unknown, Provider, Social History Tobacco Use Types [...] LAB 04/12/2006 9:34 EDT 04/12/2006 22:15 EDT us Provider Unknown CHEMISTRY & BLOOD GAS ORDERA BLES Final Result Performing Organization Address [facility] Co de Phone Number [facility] [address] [place] [address] * SYPHILIS SERO (RPR) (04/12/2006 9:34 EDT) Syphilis Sero (RPR) NONREACT. NR Dils [facility] 04/12/2006 9:34 EDT 04/12/2006 22:15 EDT us Provider Unknown IMMUNOLOGY AND SEROLOGY ORDE RABLES Final Result Performing Organization Address [facility] de Phone Number [facility] [address] [place] [address] * HEPATITIS B SURFACE ANTIGEN (04/12/2006 9:34 EDT) Hepatitis B Surface Ag Neg [facility] 04/12/2006 9:34 EDT 04/12/2006 22:15 EDT us Provider Unknown CHEMISTRY & BLOOD GAS ORDERA BLES Final Result Performing Organization Address [facility] de Phone Number [facility] [address] [place] [address] documented in this encounter Visit Diagnoses Not on filedocumented in this encounter Care Teams Medical Assistant Supervisor Relationship Specialty Start Date End Date Jose Hillman MD PCP - General 04/02/09 07/06/19 Aric Hurley MD PCP - General 01/13/09 04/01/09 documented as of this encounter
--- OUTSIDE RECORDS SUMMARY | 2024-10-08 16:23 | XMS_ITS | Encounter Summary ---
Author Organization [facility] Address [address] [place] [address] Care Team Providers Care Patternmaker Sample Name Role Phone Aric Hurley MD Primary Care Provider Un available Encounter Details Date Type Department Care Team (Late st Contact Info) Description 09/08/2008 Before PRISM Converted Visit ([facility]) [facility] Adult Primary Care - [address] [id number] Unknown, Provider, Social History Tobacco Use Types [...] 09/08/2008 13:4 6 EST 09/08/2008 22:23 EST us Provider Unknown CHEMISTRY & BLOOD GAS ORDERA BLES Final Result Performing Organization Address [facility] Co de Phone Number [facility] [address] [place] [address] * FSH (09/08/2008 13:46 EST) FSH 8.8 mIU/ml [facility] Comment: Follicular: 2-11 Mid-Cycle Peak: 3.4-35 Luteal: 1-9 Postmenopausal: 25-120 09/08/2008 13:4 6 EST 09/08/2008 22:23 EST us Provider Unknown CHEMISTRY & BLOOD GAS ORDERA BLES Final Result Performing Organization Address [facility] de Phone Number [facility] [address] [place] [address] * LH (09/08/2008 13:46 EST) Pathologist [facility] LH 15.8 mIU/ml [facility] Comment: Follicular: 1-18 Mid-Cycle Peak: 15-80 Luteal: 0.5-18 Postmenopausal: 12-55 09/08/2008 13:4 6 EST 09/08/2008 22:23 EST us Provider Unknown CHEMISTRY & BLOOD GAS ORDERA BLES Final Result Performing Organization Address [facility] de Phone Number [facility] [address] [place] [address] documented in this encounter Visit Diagnoses Not on filedocumented in this encounter Care Teams Patternmaker Sample Relationship Specialty Start Date End Date Aric Hurley MD PCP - General 01/13/09 04/01/09 documented as of this encounter
--- OUTSIDE RECORDS SUMMARY | 2024-10-08 16:23 | XMS_ITS | Encounter Summary ---
Author Organization [facility] Address [address] [place] [address] Care Team Providers Care Centerless Grinder Operator Name Role Phone Jose Hillman MD Primary Care Provider Unav Aric Chwo MD Primary Care Provider Un available Encounter Details Date Type Department Care Team (Late st Contact Info) Description 02/22/2006 Results Only [facility] - Maple conversion [address] [place] [address] Abner Anand MD Social History Tobacco Use [...] [facility] ? Accession #: ? [id number] : ? 1985 (Age: 20) ??F ?Collect Date: ? 02/22/2006 Location: ? [facility] ? Receive Date: ? 02/23/2006 Provider: ?ABNER ANAND MD Copy to: ? Specimen/Source: ?ThinPrep Pap Test, Cervix/Endocervix, processed on [employer] ThinPrep Imaging System, with manual evaluation Last [...] of Report [facility] 02/22/2006 02/23/2006 us Abner Anand MD PATHOLOGY ORDERABLES Final Res ult [facility] [address] [place] [address] documented in this encounter Visit Diagnoses Not on filedocumented in this encounter Care Teams Centerless Grinder Operator Relationship Specialty Start Date End Date Jose Hillman MD PCP - General 04/02/09 07/06/19 Aric Hurley MD PCP - General 01/13/09 04/01/09 documented as of this encounter
--- OUTSIDE RECORDS SUMMARY | 2024-10-08 16:23 | XMS_ITS | Encounter Summary ---
Author Organization [facility] Address [address] [place] [address] Care Team Providers Care Research Contracts Supervisor Name Role Phone Unavailable Primary Care Provider Unavailabl e Encounter Details Date Type Department Care Team (Latest Contact Info) Description 09/22/2002 14:14 EST Hospital Encounter [facility] - Other [address] [place] [address] Abner Royal MD Unknown, Provider, Discharge Disposition: [...] [facility] ? Accession #: ? [id number] : ? 1985 (Age: 17) ??F ?Collect [...] of Report [facility] 09/22/2002 09/24/2002 us Abner Royal MD PATHOLOGY ORDERABLES Final Res ult [facility] [address] [place] [address] documented in this encounter Visit Diagnoses Not on filedocumented in this encounter
--- OUTSIDE RECORDS SUMMARY | 2024-10-08 16:23 | XMS_ITS | Encounter Summary ---
Author Organization [facility] [place] [facility] Address [address] [place] [address] Care Team Providers Care Doorshaker Name Role Phone Jose Hillman MD Primary Care Provider Unav Aric Chow MD Primary Care Provider Un available Encounter Details Date Type Department Care Team (Late st Contact Info) Description 11/29/2006 Results Only [facility] [place] [facility] - Maple conversion [address] [place] [address] Abner Anand MD Social History Tobacco Use [...] [facility] ? Accession #: ? [id number] : ? 1985 (Age: 21) ??F ?Collect Date: ? 11/29/2006 Location: ? [facility] ? Receive Date: ? 11/30/2006 Provider: ?ABNER ANAND MD Copy to: ? Specimen/Source: ?ThinPrep Pap Test, Cervix/Endocervix, processed on [employer] ThinPrep Imaging System, with manual evaluation Last Menstrual Period: ? 11/19/06 Menstrual/Pregnanc y Status: ? Post Other: ? HPVA - HPV testing requested if ASC-US on the current ThinPrep Pap test. ? SPECIMEN ADEQUACY ? Satisfactory for Evaluation - transformation zone component present GENERAL CATEGORIZATION ? Negative for Intraepithelial Lesion or Malignancy ? Document reviewed and electronically signed by: ? Abdulaziz Son, KATHERINE(ASCP) ? Report Date: ??12/04/2006 11:10 End of Report [facility] 11/29/2006 11/30/2006 us Abner Anand MD PATHOLOGY ORDERABLES Final Res ult [facility] [address] [place] [address] documented in this encounter Visit Diagnoses Not on filedocumented in this encounter Care Teams Doorshaker Relationship Specialty Start Date End Date Jose Hillman MD PCP - General 04/02/09 07/06/19 Aric Hurley MD PCP - General 01/13/09 04/01/09 documented as of this encounter
--- OUTSIDE RECORDS SUMMARY | 2024-10-08 16:23 | XMS_ITS | Encounter Summary ---
Author Organization [facility] Address [address] [place] [address] Care Team Providers Care Satellite Tv Technician Name Role Phone Jose Hillman MD Primary Care Provider Unav Aric Chow MD Primary Care Provider Un available Encounter Details Date Type Department Care Team (Late st Contact Info) Description 10/11/2007 Results Only [facility] - [facility] [address] [place] [address] Abner Anand MD Social History Tobacco Use [...] [facility] ? Accession #: ? [id number] : ? 1985 (Age: 22) ??F ?Collect Date: ? 10/11/2007 Location: ? [facility] ? Receive Date: ? 10/14/2007 Provider: ?ABNER ANAND MD Copy to: ? Specimen/Source: ?ThinPrep Pap Test, Cervix/Endocervix, processed on Futon ThinPrep Imaging System, with manual evaluation Last [...] of Report [facility] 10/11/2007 10/14/2007 us Abner Anand MD PATHOLOGY ORDERABLES Final Res ult [facility] [address] [place] [address] documented in this encounter Visit Diagnoses Not on filedocumented in this encounter Care Teams Satellite Tv Technician Relationship Specialty Start Date End Date Jose Hillman MD PCP - General 04/02/09 07/06/19 Aric Hurley MD PCP - General 01/13/09 04/01/09 documented as of this encounter
--- OUTSIDE RECORDS SUMMARY | 2024-10-08 16:23 | XMS_ITS | Encounter Summary ---
Author Organization [facility] Address [address] [place] [address] Care Team Providers Care Ager Operator Name Role Phone Jose Hillman MD Primary Care Provider Unav Aric Chow MD Primary Care Provider Un available Encounter Details Date Type Department Care Team (Late st Contact Info) Description 02/05/2007 Results Only [facility] - Maple conversion [address] [place] [address] Unknown, Provider, MD Social History Tobacco Use Types Packs/Day [...] trachomatis or Neisseria gonorrhoeae DNA detected by external grinder mediated amplification. [facility] Report Status Final [id number] [facility] 02/05/2007 13:2 9 EDT 02/05/2007 22:42 EDT us Provider Unknown MD MICROBIOLOGY - GENERAL ORDER RAFAEL Final Result [facility] [address] [place] [address] documented in this encounter Visit Diagnoses Not on filedocumented in this encounter Care Teams Ager Operator Relationship Specialty Start Date End Date Jose Hillman MD PCP - General 04/02/09 07/06/19 Aric Hurley MD PCP - General 01/13/09 04/01/09 documented as of this encounter
== END 2024-10-08 16:08 | disposition home or self-care (01) ==
LOC: LBN 16:07
PROVIDERS: PCP Nurse Practitioner Family; Visit Provider Physician Assistant Medical
DX: J02.9 Acute pharyngitis, unspecified (principal)
CPT/HCPCS: 87070

== ENCOUNTER 2024-10-17 19:20 | Emergency (ER) | payer MEDICAID, SELFPAY ==
[2024-10-17] VITALS (7 sets, daily range): BP systolic 149–190; BP diastolic 104–114; PULSE 76–92; RESP 18–30; TEMP 36.5; O2SAT 96–98
--- NOTE | 2024-10-17 19:15 | RT.EKG_ITS ---
APPROVED REPORT Exam: Resting ECG Reason for Exam: Patient Location: E HR:88 bpm ECG Measurements Heart Rate 88 AXIS NM 135 P 58 QRSd 101 QRS 7 QT 380 T 20 QTc 459 Conclusion Sinus rhythm. 88 normal axis no stemi
--- NOTE | 2024-10-17 19:25 | ED.GENADUL_ITS ---
Discharge Plan Disposition Patient Disposition: Home Discharge Details Clinical Impression: Pneumonia Primary Care Provider: Rosangela Stiles ED Provider: Cristela Puckett Home Meds and New Rx's Prescriptions: New azithromycin 250 mg tablet 250 mg PO DAILY 4 Days Qty: 4 0RF Rx Instructions: start on day 2 of therapy promethazine 6.25 mg/5 mL syrup 12.5 mg PO Q6H PRN (Reason: cough) Qty: 120 0RF prednisone 20 mg tablet 40 mg PO DAILY 4 Days Qty: 8 0RF No Action Arnuity Ellipta 200 mcg/actuation blister with device 1 inh inhalation DAILY topiramate [Topamax] 25 mg tablet 25 mg PO QHS Qty: 90 3RF Rx Instructions: Take in addition to 50 mg tablet for a total of 75 mg at bedtime. topiramate [Topamax] 50 mg tablet 50 mg PO QHS Qty: 90 3RF Rx Instructions: In addition to 25 mg tablet for total of 75 mg at bedtime magnesium oxide 500 mg capsule 500 mg PO QHS Qty: 90 3RF cyclobenzaprine 5 mg tablet 5 mg PO HS Qty: 90 3RF montelukast 10 mg Tablet 10 mg PO DAILY albuterol sulfate [ProAir HFA] 90 mcg/actuation Hfa Aerosol Inhaler 2 puff INHALATION 6XD PRN buspirone 10 mg tablet 30 mg PO BID Rx Instructions: 30mgs in am. 20 mgs in pm Discharge Instructions Instructions: Community-Acquired Pneumonia, Adult (DC) Additional Instructions: Continue your albuterol rescue inhaler, 2 puffs every 4 hours you were given a dose of steroids and will be discharged home with a steroid burst to take for the next 4 days Your chest x-ray is concerning for a pneumonia. Your first dose of antibiotics was given tonight, the remaining doses have been sent to the pharmacy Additional cough medication has also been sent to the pharmacy to help with your symptoms. Please follow-up with your PCP HPI General Date/Time Provider Initiated Documentation: 10/17/24 19:21 . Limitations to Documentation: no limitations . Information obtained by: patient . HPI Narrative: 39-year-old female with a past medical history of asthma, migraines presents for evaluation of cough and chest pain. She reports that 10 days ago she was diagnosed with influenza. She was not treated with Tamiflu at that time. She has been using her inhaler with some improvement, but she feels like she is using her inhaler multiple times a day. She denies any persistent fevers. She reports her cough is productive of some thin mucus. She is concerned that for the last several days she has been having some pain across her chest that feels worse with her cough. She denies any significant shortness of breath Related Data Home Medications ?Medication ?Instructions ?Recorded ?Confirmed albuterol sulfate 90 mcg/actuation 2 puff inhalation 6XD PRN 03/24/20 10/17/24 aerosol inhaler (ProAir HFA) montelukast 10 mg tablet 10 mg PO DAILY 03/24/20 10/17/24 cyclobenzaprine 5 mg tablet 5 mg PO HS #90 tabs 05/09/23 10/17/24 magnesium oxide 500 mg capsule 500 mg PO QHS #90 caps 05/09/23 10/17/24 buspirone 10 mg tablet 30 mg PO BID 10/18/23 10/17/24 fluticasone furoate 200 1 inh inhalation DAILY 04/09/24 10/17/24 mcg/actuation blister powder for inhalation (Arnuity Ellipta) topiramate 25 mg tablet (Topamax) 25 mg PO QHS #90 tabs 04/09/24 10/17/24 topiramate 50 mg tablet (Topamax) 50 mg PO QHS #90 tabs 09/10/24 10/17/24 azithromycin 250 mg tablet 250 mg PO DAILY 4 days #4 tabs 10/17/24 prednisone 20 mg tablet 40 mg (2 x 20 mg) PO DAILY 4 days 10/17/24 #8 tabs promethazine 6.25 mg/5 mL oral 12.5 mg (10 mL) PO Q6H PRN cough 10/17/24 syrup #120 mL Previous Rx's ?Medication ?Instructions ?Recorded cyclobenzaprine 5 mg tablet 5 mg PO HS #90 tabs 05/09/23 magnesium oxide 500 mg capsule 500 mg PO QHS #90 caps 05/09/23 topiramate 25 mg tablet (Topamax) 25 mg PO QHS #90 tabs 04/09/24 topiramate 50 mg tablet (Topamax) 50 mg PO QHS #90 tabs 09/10/24 azithromycin 250 mg tablet 250 mg PO DAILY 4 days #4 tabs 10/17/24 prednisone 20 mg tablet 40 mg (2 x 20 mg) PO DAILY 4 days 10/17/24 #8 tabs promethazine 6.25 mg/5 mL oral 12.5 mg (10 mL) PO Q6H PRN cough 10/17/24 syrup #120 mL Allergies Allergy/AdvReac Type Severity Reaction Status Date / Time amlodipine Allergy Unknown Other (See Verified 10/17/24 19:23 Comment) aspirin Allergy Unknown Other (See Verified 10/17/24 19:23 Comment) benzonatate (From Tessalon Allergy Unknown Other (See Verified 10/17/24 19:23 Jose) Comment) ciprofloxacin Allergy Unknown Other (See Verified 10/17/24 19:23 Comment) codeine Allergy Unknown Other (See Verified 10/17/24 19:23 Comment) grape Allergy Unknown Other (See Verified 10/17/24 19:23 Comment) losartan Allergy Unknown Other (See Verified 10/17/24 19:23 Comment) nickel Allergy Unknown Other (See Verified 10/17/24 19:23 Comment) orange Allergy Unknown Other (See Verified 10/17/24 19:23 Comment) oxycodone (From Tylox) Allergy Unknown Other (See Verified 10/17/24 19:23 Comment) Penicillins Allergy Unknown Other (See Verified 10/17/24 19:23 Comment) potassium Allergy Unknown Other (See Verified 10/17/24 19:23 Comment) Sulfa (Sulfonamide Allergy Unknown Other (See Verified 10/17/24 19:23 Antibiotics) Comment) acetaminophen (From Tylox) Allergy Other (See Verified 10/17/24 19:23 Comment) latex Allergy Other (See Verified 10/17/24 19:23 Comment) lysol Allergy Unknown Other (See Uncoded 10/17/24 19:23 Comment) turnips Allergy Unknown Other (See Uncoded 10/17/24 19:23 Comment) wool Allergy Other (See Uncoded 10/17/24 19:23 Comment) General MICHA: 4 Exam Narrative Exam Narrative: review of Systems: All systems reviewed & are unremarkable except as noted in HPI and below Well-developed, no acute distress afebrile NCAT RRR no murmur Unlabored respiratory effort, CTAB, no tachypnea or hypoxia Nondistended abdomen Extremities w/o edema no focal neurologic deficits Appropriate mood and affect Medical Decision Making Emergent evaluation of cough and shortness of breath. Patient was diagnosed with influenza 10 days ago. She does have a history of asthma. She took a breathing treatment about 1 hour prior to arrival and on initial evaluation, there is no signs of respiratory distress or failure, no significant wheezing appreciated on examination there is no hypoxia. Initial differential includes persistent viral illness, pneumonia, asthma exacerbation. Patient was given IV steroids. EKG was obtained and independently interpreted: Sinus 88 normal axis no acute ischemic changes. Lab work including a troponin enzyme were obtained and there is no significant abnormality there. The troponin on the high- sensitivity assay is less than 4, and since her chest pain has been ongoing for several days, I do not suspect a cardiac etiology. Chest x-ray was obtained and reviewed independently: There does appear to be a right-sided infiltrate. I will treat with antibiotics. She has multiple allergies. Will use a zithromycin. I will this to the pharmacy for a short burst. Recommend close follow-up with her PCP. She was noted to be hypertensive though she states that this is because we make her nervous. She is otherwise not on blood pressure medication. Recommend addressing this with her PCP. Quality:SDOH Health Related Social Needs: No Data to Display PFSH All Active Problems (Updated 10/17/24 @ 20:15 by Cristela Puckett MD) Pneumonia (Acute) Migraine headache without aura (Acute) Left carpal tunnel syndrome (Acute) Frequent headaches (Acute) Medical History Chronic back pain Fibromyalgia Anxiety Depression PTSD (post-traumatic stress disorder) Vertigo Asthma Hypertension Hx of migraines Social History Smoking/Tobacco Use Status: Never Smoking risk assessment performed?: Yes Alcohol Intake: never Drug use: Never Substance use type: does not use Do you feel safe at home: Yes Do you feel safe in your relationship?: Yes
[2024-10-17] MEDS: methylPREDNISolone SUCC 125 MG VIAL IVP (19:40)
[2024-10-17 19:43] LABS: Abs Immature Grans 0.09 10^3/uL (0.0-0.06); Absolute Basophil Count 0.07 10^3/uL (0.0-0.2); Absolute Eosinophil Count 0.17 10^3/uL (0.0-0.7); Absolute Lymphocyte Count 3.56 10^3/uL (1.2-3.4); Absolute Monocyte Count 1.05 10^3/uL (0.1-0.8); Absolute Neutrophil Count 4.63 10^3/uL (1.2-6.7); Basophils % 0.7 %; Eosinophils % 1.8 %; HCT 43.8 % (36.0-46.0); HGB 14.9 g/dL (11.2-15.7); Immature Grans % 0.9 %; Lymphocytes % 37.2 %; MCH 30.7 pg (27.0-33.0); MCV 90 fL (80-95); MPV 9.9 fL (8.0-11.0); Neutrophils % 48.4 %; Platelet Count 365 10^3/uL (130-400); RBC 4.85 10^6/uL (3.93-5.22); RDW 11.5 % (11.7-14.6); RDW-SD 37.8 fL; WBC 9.57 10^3/uL (4.4-10.8)
--- OUTSIDE RECORDS SUMMARY | 2024-10-17 19:51 | XMS_ITS | Encounter Summary ---
Author Organization [facility] Address [address] [place] [address] Care Team Providers Care Painting Technician Name Role Phone Terry Georgie Pritesh MIRANDA Primary Care Provider + Encounter Details Date Type Department Care Team (Late st Contact Info) Description 09/09/2019 Historical Results Only [facility] - Main [address] [address] Lucas Turcios MD [address] [place] [id number] Social History Tobacco Use Types Packs/Day [...] (09/09/2019 4:20 EST) USUAL [facility] - [facility] 09/10/2019 12:26 EST [facility] CitrateConcentration 10,000-1 00,000 CFU/ML 09/10/2019 12:26 EST [facility] 09/09/2019 4:20 EST 09/09/2019 4:51 EST Comment:VOID Lucas Turcios MD MICROBIOLOGY - GENERAL ORDERABLES Final Result [facility] documented in this encounter Visit Diagnoses Not on filedocumented in this encounter Care Teams Painting Technician Relationship Specialty Start Date End Date Georgie Stewart, MULTI PURPOSE MACHINE OPERATOR [address] [place] [id number] PCP - General 07/07/19 documented as of this encounter
--- OUTSIDE RECORDS SUMMARY | 2024-10-17 19:51 | XMS_ITS | Encounter Summary ---
Author Organization [facility] Address [address] [place] [place] [address] Care Team Providers Care Peer Specialist Name Role Phone Georgie Stewart Pritesh MIRANDA Primary Care Provider + Reason for Visit * Reason Onset Date Comments Rash 08/22/2019 had lapro hyst. on Saturday 08/18, Encounter Details Date Type Department Care Team (Late st Contact Info) Description 08/22/2019 Telephone [facility] OBGYN [address] [place] [address] MD [address] [facility], [address] [place] [address] Rash (had lapro hyst. on [...] on filedocumented in this encounter Care Teams Peer Specialist Relationship Specialty Start Date End Date Georgie Stewart, MVA REACTOR OPERATOR HEAD [address] [place] [id number] PCP - General 07/07/19 documented as of this encounter
--- OUTSIDE RECORDS SUMMARY | 2024-10-17 19:51 | XMS_ITS | Encounter Summary ---
Author Organization [facility] Address [address] [place] [address] Care Team Providers Care Basic Combatant Swimmer Name Role Phone StewartGeorgie bnada Pritesh MIRANDA Primary Care Provider + Encounter Details Date Type Department Care Team (Late st Contact Info) Description 08/19/2019 Results Only [facility] [phone] MD [address] [place] [address], [address] [place] [address] Social History Tobacco Use Types [...] APPEARANCE - CV Cloudy CLEAR 08/19/2019 12:31 [facility] URINE BACTERIA - CV MANY 08/19/2019 12:57 [facility] URINE BILIRUBIN - DIPSTICK - CV Negative NEGATIVE 08/19/2019 12:31 [facility] URINE BLOOD - CV 3+ NEG 08/19/2019 12:31 [facility] URINE COLOR - CV Yellow YELLOW 08/19/2019 12:31 [facility] URINE GLUCOSE - DIPSTICK - CV Negative NEGATIVE 08/19/2019 12:31 [facility] URINE KETONE - CV Negative NEGATIVE 08/19/2019 12:31 [facility] URINE LEUK ESTERASE - CV 3+ NEG 08/19/2019 12:31 [facility] URINE NITRITE - DIPSTICK - CV Negative NEG 08/19/2019 12:31 [facility] URINE PH - CV 7.0 4.0 - 8.0 9 12:31 [facility] URINE PROTEIN - DIPSTICK - CV Negative NEG 08/19/2019 12:31 [facility] URINE RBC - [facility] TNTC rbc/hpf 08/19/2019 12:57 [facility] URCULTIF+? - [facility] Contaminated 08/19/2019 12:57 [facility] Comment: Specimen contaminated. Please recollect a clean catch sample if a culture is indicated. URINE SPECIFIC GRAVITY - [facility] <=1.005 1.001 - 1.035 08/19/2019 12:31 [facility] URINE SQUAMOUS CELLS - [facility] TNTC NEG #/hpf 08/19/2019 12:57 [facility] URINE UROBILINOGEN - DIPSTICK - [facility] 0.2 0.2 - 1.0 08/19/2019 12:31 [facility] URINE WBC - [facility] 5-10 NEG wbc/hpf 08/19/2019 12:57 [facility] 08/19/2019 12:0 4 EST 08/19/2019 12:[address] [facility] - 08/19/2019 12:57 EST Does PT Have a Latex Allergy? YES us Gold Villar MD CHEMISTRY & BLOOD GAS ORDERABLE S Final Result [facility] * (ABNORMAL) BASIC METABOLIC PANEL (BMP) (08/19/2019 2:20 EST) BUN - [facility] 9(L) 10 - 26 mg/dL 08/19/2019 2:49 [facility] CALCIUM - [facility] 8.6 8.5 - 10.5 mg/dL 08/19/2019 2:49 [...] [facility] GLUCOSE - [facility] 123(H) 70 - 100 mg/dL 08/19/2019 2:49 [facility] Potassium 3.4(L) 3.5 - 5.0 mEq/L 08/19/2019 2:49 [facility] Sodium 138 136 - 145 mEq/L 08/19/2019 2:49 [facility] 08/19/2019 2:20 EST 08/19/2019 2:[address] MD CHEMISTRY & BLOOD GAS ORDERAB LES Final Result [facility] * (ABNORMAL) COMPLETE BLOOD [...] [facility] LYMPH% - [facility] 21.3 20 - 40 % 08/19/2019 2:37 [facility] MEAN CORPUSCULAR HGB - [facility] 28.4 26.7 - 33.3 pg 08/19/2019 2:37 [facility] MEAN CORPUSCULAR HGB CONC - [facility] 32.1 32.1 - 35.9 g/dL 08/19/2019 2:37 [facility] MEAN CELL VOLUME - [facility] 88.5 81 - 98 fl 08/19/2019 2:37 [facility] MONO # - [facility] 0.8 0.1 - 0.8 10e3/uL 08/19/2019 2:37 [facility] MONO% - [facility] 9.3 0 - 12 % 08/19/2019 2:37 [facility] PLATELET COUNT 264 141 - 377 10e3/ul 08/19/2019 2:37 [facility] RED BLOOD COUNT - [facility] 3.73(L) 3.86 - 5.04 10e3/ul 08/19/2019 2:37 [facility] RED CELL DISTRI WIDTH - [facility] 12.3 <14.7 % 08/19/2019 2:37 [facility] WHITE BLOOD COUNT - [facility] 9.0 4.0 - 12.4 10e3/ul 08/19/2019 2:37 [facility] 08/19/2019 2:20 EST 08/19/2019 2:[address] MD HEMATOLOGY & PF4 ORDERABLES F inal Result [facility] documented in this encounter Visit Diagnoses Not on filedocumented in this encounter Care Teams Basic Combatant Swimmer Relationship Specialty Start Date End Date Georgie Stewart, MESSAGING ARCHITECT [address] [place] [place] [address] PCP - General 07/07/19 documented as of this encounter
--- OUTSIDE RECORDS SUMMARY | 2024-10-17 19:51 | XMS_ITS | Encounter Summary ---
Author Organization [facility] Address [address] [place] [address] Care Team Providers Care Ampoule Examiner Name Role Phone Georgie Stewart Pritesh MIRANDA Primary Care Provider + Reason for Visit * Reason Comments Follow-up S/P HYST Encounter Details Date Type Department Care Team (Late st Contact Info) Description 09/04/2019 9:40 EST Office Visit [facility] [address] [place], [place] [id number] [address]ati Lane MD [address] [facility], [address] [place] [address] Post-operative state (Primary Dx) Social [...] of liver Skin: Rash resolved with nystatin PORCELAIN ENAMEL SPRAYER History: Patient's last menstrual period was 06/05/2019 [...] Allergies Allergen Reactions ??? Codeine Anaphylaxis ??? Oihqinm-Vtt-Wp-Acetaminophen Anaphylaxis ??? Sulfa (Sulfonamide Antibiotics) Anaphylaxis ??? Aspirin Other reaction(s): unsure of reaction ??? Truman And Derivatives Other reaction(s): rash and hives [...] 10/07/2019 added in this encounter Care Teams Ampoule Examiner Relationship Specialty Start Date End Date Georgie Stewart APRN [address] [place] [id number] PCP - General 07/07/19 documented as of this encounter
--- OUTSIDE RECORDS SUMMARY | 2024-10-17 19:51 | XMS_ITS | Encounter Summary ---
Author Organization [facility] Address [address] [place] [place] [address] Care Team Providers Care Sheet Metal Journeyman Name Role Phone StewartGeorgie banda Pritesh MIRANDA Primary Care Provider + Encounter Details Date Type Department Care Team (Late st Contact Info) Description 09/09/2019 Results Only [facility] [phone] Lucas Turcios MD [address] [place] [phone] Social History Tobacco Use Types Packs/Day [...] in this encounter Results * URINALYSIS/COMPLETE - [facility] (09/09/2019 4:20 EST) URINE APPEARANCE - [facility] Clear CLEAR 09/09/2019 4:44 [facility] URINE BACTERIA - [facility] FEW 09/09/2019 4:50 [facility] URINE BILIRUBIN - D[facility]ST[place] - [facility] 1+ NEGATIVE 09/09/2019 4:44 [facility] Comment: Unable to confirm positive urine bilirubin. If clinical correlation is inconsistent, consider serum bilirubin. URINE BLOOD - [facility] 3+ NEG 09/09/2019 4:44 [facility] URINE COLOR - [facility] Yellow YELLOW 09/09/2019 4:44 [facility] URINE GLUCOSE - [place] - [facility] Negative NEGATIVE 09/09/2019 4:44 [facility] URINE KETONE - [facility] Trace NEGATIVE 09/09/2019 4:44 [facility] URINE LEUK ESTERASE - [facility] 1+ NEG 09/09/2019 4:44 [facility] URINE NITRITE - [facility] - [facility] Negative NEG 09/09/2019 4:44 [facility] URINE PH - [facility] 5.5 4.0 - 8.0 0 4:44 [facility] URINE PROTEIN - [place] - [facility] Trace NEG 09/09/2019 4:44 [facility] URINE RBC - [facility] 15-20 rbc/hpf 09/09/19 20 4:50 [facility] URCULTIF+? - [facility] Culture Ordered 09/09/2019 4:50 [facility] URINE SPECIFIC GRAVITY - [facility] >=1.030 1.001 - 1.035 09/09/2019 4:44 [facility] URINE SQUAMOUS CELLS - [facility] FEW NEG #/hpf 09/09/2019 4:50 [facility] URINE UROBILINOGEN - [place] - [facility] 0.2 0.2 - 1.0 09/09/2019 4:44 [facility] URINE WBC - [facility] 10-15 NEG wbc/hpf 020 4:50 [facility] 09/09/2019 4:20 EST 09/09/2019 4:24 EST Lucas Turcios MD CHEMISTRY & BLOOD GAS ORDERABLES Final Result Performing Organization Address [facility] Co de Phone Number [facility] * (ABNORMAL) C REACTIVE PROTEIN (09/09/2019 4:19 EST) C-Reactive Protein 10.2(H) <10.0 mg/L 09/09/2019 4:41 [facility] 09/09/2019 4:19 EST 09/09/2019 4:24 EST Lucas Turcios MD CHEMISTRY & BLOOD GAS ORDERABLES Final Result Performing Organization Address [facility]/ZIP Co de Phone Number [facility] * (ABNORMAL) COMPREHENSIVE METABOLIC PANEL (CMP) (09/09/2019 4:19 EST) Albumin % 4.0 3.4 - 4.9 g/dL 09/09/2019 4:41 [facility] ALKALINE PHOSPHATASE - [facility] 84 38 - 126 U/L 09/09/2019 4:41 [facility] BILIRUBIN TOTAL 0.2 0.2 - 1.3 mg/dL 09/09/2019 4:41 [facility] BUN - [facility] 21 10 - 26 mg/dL 09/09/2019 4:41 [facility] CALCIUM - [facility] 9.5 8.5 - 10.5 mg/dL 09/09/2019 4:41 [facility] Chloride 108 96 - 110 mmol/L 09/09/2019 4:41 [facility] CO2 Total 22 22 - 32 mEq/L 09/09/2019 4:41 [facility] CREATININE 0.77 0.52 - 1.04 mg/dL 09/09/2019 4:41 [facility] eGFR >60 09/09/2019 4:41 [facility] Comment: Chronic renal impairment is defined as GFR <60 Multiply result by 1.210 for patients. eGFR calculated using the IDMS-traceable MDRD Study Equation. ??(effective 07/06/2014) Anion Gap 9 0 - 18 09/09/2019 4:41 [facility] GLUCOSE - [facility] 112(H) 70 - 100 mg/dL 09/09/2019 4:41 [facility] Potassium 3.9 3.5 - 5.0 mEq/L 09/09/2019 4:41 [facility] Sodium 139 136 - 145 mEq/L 09/09/2019 4:41 [facility] TOTAL PROTEIN - [facility] 7.3 6.2 - 8.2 gm/dL 09/09/2019 4:41 [facility] SGOT/AST - [facility] 18 14 - 36 U/L 09/09/2019 4:41 [facility] SGPT/ALT - [facility] 29 9 - 52 U/L 0 4:41 [facility] 09/09/2019 4:19 EST 09/09/2019 4:24 EST us Lucas Turcios MD CHEMISTRY & BLOOD GAS ORDERABLES Final Result [facility] * (ABNORMAL) COMPLETE BLOOD COUNT WITH DIFFERENTIAL (AUTO) (09/09/2019 4:19 EST) Gran # 4.4 2.2 - 8.85 10e3/uL 09/09/2019 4:37 [facility] BASO # - [facility] 0.06 0.01 - 0.11 10e/uL 09/09/2019 4:37 [facility] BASO % - [facility] 1 0 - 2 % 09/09/2019 4:37 [facility] EOS # - [facility] 0.40 0.03 - 0.61 10e3/ul 09/09/2019 4:37 [facility] EOS % - [facility] 5 0 - 5 % 09/09/2019 4:37 [facility] GRAN % - [facility] 56.4 40 - 80 % 09/09/2019 4:37 [facility] HEMATOCRIT - [facility] 40.6 34.9 - 44.4 % 09/09/2019 4:37 [facility] HEMOGLOBIN - [facility] 12.7 11.6 - 15.2 g/dl 09/09/2019 4:37 [facility] IG# - [facility] 0.04 0 - 0.7 10e3/uL 09/09/2019 4:37 [facility] IG% - [facility] 0.5 0 - 0.9 % 09/09/2019 4:37 [facility] LYMPH # - [facility] 2.4 1.09 - 3.3 10e3/ul 09/09/2019 4:37 [facility] LYMPH% - [facility] 31.1 20 - 40 % 09/09/2019 4:37 [facility] MEAN CORPUSCULAR HGB - [facility] 27.0 26.7 - 33.3 pg 09/09/2019 4:37 [facility] MEAN CORPUSCULAR HGB CONC - [facility] 31.3(L) 32.1 - 35.9 g/dL 09/09/2019 4:37 [facility] MEAN CELL VOLUME - [facility] 86.2 81 - 98 fl 09/09/2019 4:37 [facility] MONO # - [facility] 0.5 0.1 - 0.8 10e3/uL 09/09/2019 4:37 [facility] MONO% - [facility] 6.1 0 - 12 % 09/09/2019 4:37 [facility] PLATELET COUNT 346 141 - 377 10e3/ul 09/09/2019 4:37 [facility] RED BLOOD COUNT - [facility] 4.71 3.86 - 5.04 10e3/ul 09/09/2019 4:37 [facility] RED CELL DISTRI WIDTH - [facility] 12.7 <14.7 % 09/09/2019 4:37 [facility] WHITE BLOOD COUNT - [facility] 7.9 4.0 - 12.4 10e3/ul 09/09/2019 4:37 [facility] 09/09/2019 4:19 EST 09/09/2019 4:24 EST Lucas Turcios MD HEMATOLOGY & PF4 ORDER RAFAEL Final Result [facility] documented in this encounter Visit Diagnoses Not on filedocumented in this encounter Care Teams Sheet Metal Journeyman Relationship Specialty Start Date End Date Georgie Stewart, GEOMORPHOLOGY TEACHER [address] [place] [phone] PCP - General 07/07/19 documented as of this encounter
--- OUTSIDE RECORDS SUMMARY | 2024-10-17 19:51 | XMS_ITS | Encounter Summary ---
Author Organization [facility] Address [address] [place] [address] Care Team Providers Care Film Reproducer Name Role Phone Georgie Stewart Pritesh MIRANDA Primary Care Provider + Reason for Visit * Reason Onset Date Comments Rash 08/22/2019 Pt had a procedu re Sunday, this morning she woke up with a rash, like three on the left side of her belly. Encounter Details Date Type Department Care Team (Late st Contact Info) Description 08/22/2019 Telephone [facility] OBGYN [address] [place] [address] MD [address] [facility], [address] [place] [address] Rash (Pt had a procedure [...] on filedocumented in this encounter Care Teams Film Reproducer Relationship Specialty Start Date End Date Georgie Stewart APRN [address] [place] [phone] PCP - General 07/07/19 documented as of this encounter
--- OUTSIDE RECORDS SUMMARY | 2024-10-17 19:51 | XMS_ITS | Encounter Summary ---
Author Organization [facility] Address [address] [place] [address] Care Team Providers Care Hospital Unit Clerk Name Role Phone Terry Georgie Jonas APRN [...] on filedocumented in this encounter Care Teams Hospital Unit Clerk Relationship Specialty Start Date End Date Georgie Stewart, RUBEN [address] [place] [phone] PCP - General 07/07/19 documented as of this encounter
--- OUTSIDE RECORDS SUMMARY | 2024-10-17 19:51 | XMS_ITS | Encounter Summary ---
Author Organization [facility] Address [address] [place] [address] Care Team Providers Care Advisory Application Developer Name Role Phone StewartGeorgie banda Pritesh MIRANDA Primary Care Provider + Encounter Details Date Type Department Care Team (Late st Contact Info) Description 08/20/2019 Results Only Imaging [facility] Radiology Results [address] [place] [address] MD [address] [facility], [address] [place] [address] Social History Tobacco Use Types [...] EXAM: ULTRASOUND/DOPPLER VEIN LOWER EXT. ??EX. D/ (1595) ? CLINICAL INFORMATION: ? SLLL - Swelling [...] CC: ? Transcribed Date/Time: 08/20/2019 (1429) ? Auto Service Mechanic: ? Printed Date/Time: 08/20/2019 (1430) ? PAGE 1 ? Signed Report ? Procedure Note Dar Bolivar MD - 08/20/2019 EXAM: ULTRASOUND/DOPPLER VEIN LOWER EXT. EX. D/ (5561) CLINICAL INFORMATION: SLLL - Swelling left lower [...] Dar Bolivar MD CC: Transcribed Date/Time: 08/20/2019 (6743) Auto Service Mechanic: Printed Date/Time: 08/20/2019 (9573) PAGE 1 Signed Report us Swati Lane MD IMG US ORDERABLES Final Resul t documented in this encounter Visit Diagnoses Not on filedocumented in this encounter Care Teams Advisory Application Developer Relationship Specialty Start Date End Date Georgie Stewart, UTILITIES ESTIMATOR AND DRAFTER [address] [place] [phone] PCP - General 07/07/19 documented as of this encounter
--- OUTSIDE RECORDS SUMMARY | 2024-10-17 19:51 | XMS_ITS | Encounter Summary ---
Author Organization [facility] Address [address] [place] [address] Care Team Providers Care Non Morse Intercept Technician Name Role Phone StewartGeorgie banda Pritesh MIRANDA Primary Care Provider + Encounter Details Date Type Department Care Team (Late st Contact Info) Description 08/18/2019 Results Only [facility] [phone] MD [address] [place] [address], [address] [place] [address] Social History Tobacco Use Types [...] - [facility] (08/18/2019 14:53 EST) HEMATOCRIT - [facility] 36.7 34.9 - 44.4 % 08/18/2019 15:03 EST [facility] HEMOGLOBIN - [facility] 11.8 11.6 - 15.2 g/dl 08/18/2019 15:03 EST [facility] 08/18/2019 14:5 3 EST 08/18/2019 14:[address] MD CHEMISTRY & BLOOD GAS ORDERAB LES Final Result [facility] * SURGICAL PATHOLOGY (08/18/2019) 08/18/2019 08/18/2019 13: 00 EST Narrative [facility] - 08/21/2019 10:15 EST ----- ------- Name: MARÍA ELENA FORD ? : 81 ?Age/Sex: 34/F ?Unit#: [id number] ? Loc: SDS ? Status: DEP SDC ?? Reg Date: 08/18/19 ? Pt.Phone Number: ? ----- ------- Specimen: [id number] ? STATUS: SOUT ?Spec Date:08/18/19 ? Physician Copies: ?Swati Lane MD ?? Tissues: A ?? Uterus other than neoplastic (UTERUS, CERVIX, BILATERAL TU) ??Georgie Stewart CPT: 97690 ?? Units: ??1 ?FINAL DIAGNOSIS ? UTERUS, [...] ----- ------- Patient: LILIANAMARÍA ELENA M ? #[id number] ? (Continued) ----- ------- Specimen: [id number] ? Received: 08/18/19-1300 ?(Continued) ? GROSS DESCRIPTION ?(Continued) ? cortical cysts ranging from 0.1 cm to 0.7 cm in greatest dimension. ??Serial ? sections of the right fallopian tube reveals a pinpoint lumen. ??Serial sections ? of the left fallopian tube also reveal a pinpoint lumen. ??Machine Brush Maker ? section sections are submitted as follows: [...] the above diagnosis. Test Performed by [facility], [address] [place] [id number] Res Counselor: Yee Hines MD PHD ----- ------- us Swati Lane MD PATHOLOGY ORDERABLES [facility] documented in this encounter Visit Diagnoses Not on filedocumented in this encounter Care Teams Non Morse Intercept Technician Relationship Specialty Start Date End Date Georgie Stewart, DOFFER [address] [place] [phone] PCP - General 07/07/19 documented as of this encounter
--- OUTSIDE RECORDS SUMMARY | 2024-10-17 19:51 | XMS_ITS | Referral Summary ---
Author Organization [facility] Address [address] [place] [address] Care Team Providers Care Process Owner Name Role Phone StewartGeorgie banda Pritesh MIRANDA Primary Care Provider + Allergies Active Allergy Reactions Criticality Noted Date Comments Aspirin 04/02/2019 Other reaction(s): unsure of reaction [place] And Derivatives 04/02/2019 Other reaction(s): rash and hives and GI S/SX Codeine Anaphylaxis High 04/02/2019 Uisjwpz-Jwb-Cf-Acetaminophe n Anaphylaxis High 04/02/2019 Grape 04/02/2019 Other [...] of Treatment Not on file Insurance MEDICAID [facility] [place] Address: [address] [address] MEDICA[place] Care Teams Process Owner Relationship Specialty Start Date End Date Georgie Stewart, ELEMENTARY SCHOOL PRINCIPAL [address] [place] [address] PCP - General 07/07/19
--- OUTSIDE RECORDS SUMMARY | 2024-10-17 19:51 | XMS_ITS | Encounter Summary ---
Author Organization [facility] Address [address] [place] [address] Care Team Providers Care Roofing Apprentice Name Role Phone Georgie Stewart Pritesh MIRANDA Primary Care Provider + Reason for Visit * Reason Onset Date Comments Medications Refill 08/21/2019 Pt is wonderi ng if provider could prescribe ibprophin the over the counter isn't working, Pt had surgery on Sunday, pain is every 5 hours. [facility] in [place] is her preferred pharmacy. Encounter Details Date Type Department Care Team (Late st Contact Info) Description 08/21/2019 Refill [facility] OBGYN [address] [place] [address] MD 130 [facility], [address] [place] [address] Medications Refill (Pt is wondering if provider could prescribe ibprophin the over the counter isn't working, Pt had surgery on Sunday, pain is every 5 hours. [facility] in [place] is her preferred pharmacy. ) Social History [...] dose of ibuprofen so will send to [facility] in [place]. * Telephone Encounter - Rani Reyes RN [...] on Sunday, pain is every 5 hours. [facility] in [place] is her preferred pharmacy. documented in this [...] documented as of this encounter Care Teams Roofing Apprentice Relationship Specialty Start Date End Date Georgie Stewart, RUBEN [address] [place] [phone] PCP - General 07/07/19 documented as of this encounter
--- OUTSIDE RECORDS SUMMARY | 2024-10-17 19:51 | XMS_ITS | Encounter Summary ---
Author Organization [facility] Address [address] [place] [address] Care Team Providers Care Early Head Start Teacher Name Role Phone StewartGeorgie banda Pritesh MIRANDA Primary Care Provider + Encounter Details Date Type Department Care Team (Late st Contact Info) Description 09/23/2019 Results Only Imaging [facility] [place] Results [address] [place] [address] Gerald Dumont MD [facility] [address] [place] [phone] Social History Tobacco Use Types Packs/Day Years [...] OTHER VENDOR SYSTEM 09/23/2019 ?Reported By: David gNuyen MD ? CC: Swati Lane MD; Georgie Stewart APRN GLASS BEVELLER-BC ? Transcribed Date/Time: 09/23/2019 (7537) ? Last Turner: ? Printed Date/Time: 09/23/2019 (1115) ? PAGE 2 ? Signed Report ? [...] CC: Swati Lane MD; Georgie Stewart APRN GLASS BEVELLER-BC Transcribed Date/Time: 09/23/2019 (4060) Last Turner: Printed Date/Time: 09/23/2019 (4258) PAGE 2 Signed Report Gerald Dumont MD IMG MRI ORDERABLES Final Result documented in this encounter Visit Diagnoses Not on filedocumented in this encounter Care Teams Early Head Start Teacher Relationship Specialty Start Date End Date Georgie Stewart APRN [address] [facility] [place] [phone] PCP - General 07/07/19 documented as of this encounter
--- OUTSIDE RECORDS SUMMARY | 2024-10-17 19:51 | XMS_ITS | Encounter Summary ---
Author Organization [facility] Address [address] [place] [address] Care Team Providers Care Grain Receiver Name Role Phone Terry Georgie Jonas APRN Primary Care Provider + Encounter Details Date Type Department Care Team (Late st Contact Info) Description 05/20/2022 Lab Requisition [facility] Pathology & Laboratory Medicine - [facility] [address] [place] [address] Outr Resulting Lab, Provider Social History Tobacco [...] Factor <8.6 <12.0 IU/mL 05/21/2022 17:[address] [facility] Blood VENOUS BLOOD / Unknown 05/19/2022 12:25 EDT 05/21/2022 16:24 EDT us Provider Outr Resulting Lab CHEMISTRY & BLOOD GA S ORDERABLES Final Result Performing Organization Address City/[facility]/ZIP Co de Phone Number [facility] [address] [place] [address] * ANTI NUCLEAR AB (TONY), IFA (05/19/2022 12:25 EDT) TONY Interpretation Negative Negative 2021 15:[address] [facility] Comment:No titer performed, TONY Screen is negative. Blood VENOUS BLOOD / Unknown 05/19/2022 12:25 EDT 05/21/2022 16:24 EDT Narrative [facility] - 05/22/2022 15:06 EDT Results were obtained with the INOVA NOVA Lite HEp-2 TONY Kit by indirect immunofluorescence. us Provider Outr Resulting Lab IMMUNOLOGY AND SEROL OGY ORDERABLES Final Result Performing Organization Address City/[facility]/ZIP Co de Phone Number [facility] [address] [place] [address] documented in this encounter Visit Diagnoses Not on filedocumented in this encounter Care Teams Grain Receiver Relationship Specialty Start Date End Date Georgie Stewart, LOG GRADER [address] [place] [phone] PCP - General 07/07/19 documented as of this encounter
--- OUTSIDE RECORDS SUMMARY | 2024-10-17 19:51 | XMS_ITS | Encounter Summary ---
Author Organization [facility] Address [address] [place] [address] Care Team Providers Care Care Worker Name Role Phone Georgie Stewart Pritesh MIRANDA Primary Care Provider + Reason for Visit * Reason Comments Follow-up Encounter Details Date Type Department Care Team (Late st Contact Info) Description 10/07/2019 10:20 EST Office Visit [facility] OBGYN [address] [place], [place] [id number] [address]ati [address] MD [address] [facility], [address] [place] [address] Post-operative state (Primary Dx) Social [...] Genitourinary: Negative. Musculoskeletal: Positive for back pain. FISHING VESSEL CAPTAIN History: Patient's last menstrual period was 06/05/2019 [...] Allergies Allergen Reactions ??? Codeine Anaphylaxis ??? Xcfwuhu-Raq-Cx-Acetaminophen Anaphylaxis ??? Sulfa (Sulfonamide Antibiotics) Anaphylaxis ??? Aspirin Other reaction(s): unsure of reaction ??? [place] And Derivatives Other reaction(s): rash and hives [...] daily. added in this encounter Care Teams Care Worker Relationship Specialty Start Date End Date Georgie Stewart, BASKET MAKER [address] [place] [phone] PCP - General 07/07/19 documented as of this encounter
--- OUTSIDE RECORDS SUMMARY | 2024-10-17 19:51 | XMS_ITS | Encounter Summary ---
Author Organization [facility] Address [address] [place] [address] Care Team Providers Care Porter Bath Name Role Phone StewartGeorgie banda Pritesh MIRANDA Primary Care Provider + Encounter Details Date Type Department Care Team (Late st Contact Info) Description 08/18/[address] [facility] [address] [place] [address] MD 130 [facility], [address] [place] [address] Social History Tobacco Use Types [...] documented as of this encounter Care Teams Porter Bath Relationship Specialty Start Date End Date Georgie Stewrat, ENVIRONMENTAL DEPARTMENT MANAGER [address] [place] [phone] PCP - General 07/07/19 documented as of this encounter
--- OUTSIDE RECORDS SUMMARY | 2024-10-17 19:51 | XMS_ITS | Clinical Summary ---
Author Organization [facility] Address [address] [place] [address] Care Team Providers Care Aviculturist Name Role Phone StewartGeorgie banda Pritesh MIRANDA Primary Care Provider + Allergies Active Allergy Reactions Criticality Noted Date Comments Aspirin 04/02/2019 Other reaction(s): unsure of reaction [place] And Derivatives 04/02/2019 Other reaction(s): rash and hives and GI S/SX Codeine Anaphylaxis High 04/02/2019 Poazocb-Ohj-Pt-Acetaminophe n Anaphylaxis High 04/02/2019 Grape 04/02/2019 Other [...] ( season) 2024 Insurance [place] Care Teams Aviculturist Relationship Specialty Start Date End Date Georgie Stewart, METAL STAMPER [address] [place] [phone] PCP - General 07/07/19
--- OUTSIDE RECORDS SUMMARY | 2024-10-17 19:52 | XMS_ITS | Encounter Summary ---
Author Organization [facility] Address [address] [place] [address] Care Team Providers Care Rejogger Name Role Phone Unavailable Primary Care Provider Unavailabl e Encounter Details Date Type Department Care Team (Latest Contact Info) Description 09/22/2002 14:14 EST Hospital Encounter [facility] - Other [address] [place] [address] Abner Royal MD Unknown, Provider, Discharge Disposition: [...] MARÍA ELENA FORD ? Accession #: ? [id number] : ? 1985 (Age: 17) ??F ?Collect [...] Res ult [facility] [address] [place] [address] documented in this encounter Visit Diagnoses Not on filedocumented in this encounter
--- OUTSIDE RECORDS SUMMARY | 2024-10-17 19:52 | XMS_ITS | Encounter Summary ---
Author Organization [facility] Address [address] [place] [address] Care Team Providers Care Set Up Person Name Role Phone Jose Hillman MD Primary Care Provider Unav Aric Chow MD Primary Care Provider Un available Encounter Details Date Type Department Care Team (Late st Contact Info) Description 04/12/2006 Results Only [facility] - Maple conversion [address] [place] [address] Unknown, Provider, Social History Tobacco Use Types [...] ORDERA BLES Final Result Performing Organization Address [facility] Co de Phone Number [facility] [address] [place] [address] * SYPHILIS SERO (RPR) (04/12/2006 9:34 EDT) Syphilis Sero (RPR) NONREACT. NR Dils [facility] 04/12/2006 9:34 EDT 04/12/2006 22:15 EDT us Provider Unknown IMMUNOLOGY AND SEROLOGY ORDE RABLES Final Result Performing Organization Address [facility] de Phone Number [facility] [address] [place] [address] * HEPATITIS B SURFACE ANTIGEN (04/12/2006 9:34 EDT) Hepatitis B Surface Ag Neg [facility] 04/12/2006 9:34 EDT 04/12/2006 22:15 EDT us Provider Unknown CHEMISTRY & BLOOD GAS ORDERA BLES Final Result Performing Organization Address [facility] de Phone Number [facility] [address] [place] [address] documented in this encounter Visit Diagnoses Not on filedocumented in this encounter Care Teams Set Up Person Relationship Specialty Start Date End Date Jose Hillman MD PCP - General 04/02/09 07/06/19 Aric Hurley MD PCP - General 01/13/09 04/01/09 documented as of this encounter
--- OUTSIDE RECORDS SUMMARY | 2024-10-17 19:52 | XMS_ITS | Encounter Summary ---
Author Organization [facility] Address [address] [place] [address] Care Team Providers Care Child Welfare Manager Name Role Phone Jose Hillman MD Primary Care Provider Unav Aric Chow MD Primary Care Provider Un available Encounter Details Date Type Department Care Team (Late st Contact Info) Description 02/22/2006 Results Only [facility] - Maple conversion [address] [place] [address] bAner Anand MD Social History Tobacco Use Types [...] MARÍA ELENA FOR[facility] ? Accession #: ? [id number] : ? 1985 (Age: 20) ??F ?Collect Date: ? 02/22/2006 Location: ? [facility] ? Receive Date: ? 02/23/2006 Provider: ?ABNER ANAND MD Copy to: ? Specimen/Source: ?ThinPrep Pap Test, Cervix/Endocervix, processed on [employer] ThinPrep Imaging System, with manual evaluation Last [...] Res ult [facility] [address] [place] [address] documented in this encounter Visit Diagnoses Not on filedocumented in this encounter Care Teams Child Welfare Manager Relationship Specialty Start Date End Date Jose Hillman MD PCP - General 04/02/09 07/06/19 Aric Hurley MD PCP - General 01/13/09 04/01/09 documented as of this encounter
--- OUTSIDE RECORDS SUMMARY | 2024-10-17 19:52 | XMS_ITS | Encounter Summary ---
Author Organization [facility] Address [address] [place] [address] Care Team Providers Care Reflow Operator Name Role Phone Jose Hillman MD Primary Care Provider Unav ailable Encounter Details Date Type Department Care Team (Late st Contact Info) Description 03/19/2019 Historical Results Only [facility] - Main [place] [address] [place] [address] MD [address] [place] [address], [address] [place] [address] Social History Tobacco Use Types [...] (03/19/2019) 03/19/2019 03/19/2019 11: 03 EDT Narrative [facility] - 03/20/2019 17:14 EDT ----- ------- Name: MARÍA ELENA FORD ? : [birth year] ?Age/Sex: 33/F ?Unit#: [id number] ? Loc: SDS ? Status: DEP SDC ?? Reg Date: 03/19/19 ? Pt.Phone Number: ? ----- ------- Specimen: [id number] ? STATUS: SOUT ?Spec Date:03/19/19 ? Physician Copies: ?Swati Lane MD ?? Tissues: A ?? Endometrium, polyp ? Georgie Stewart ? B ?? Endometrium, curettings ? C ?? Endocervix, polyp ? CPT: 96655 ?? Units: ??3 ?FINAL DIAGNOSIS ? A. [...] ----- ------- Patient: MARÍA ELENA FORD ? #[id number] ? (Continued) ----- ------- Specimen: [id number] ? Received: 03/19/19 ?(Continued) ? GROSS DESCRIPTION [...] confirmed the above diagnosis. Test Performed by [facility], [address] [place] [address] Customer Resource Specialist: Yee Hines MD PHD ----- ------- us Swati Lane MD PATHOLOGY ORDERABLES Final Re sult [facility] documented in this encounter Visit Diagnoses Not on filedocumented in this encounter Care Teams Reflow Operator Relationship Specialty Start Date End Date Jose Hillman MD PCP - General 04/02/09 07/06/19 documented as of this encounter
--- OUTSIDE RECORDS SUMMARY | 2024-10-17 19:52 | XMS_ITS | Encounter Summary ---
Author Organization [facility] Address [address] [place] [address] Care Team Providers Care Field Captain Name Role Phone Jose Hillman MD Primary Care Provider Georgie Brennan APRN Primary Care Provider + Encounter Details Date Type Department Care Team (Late st Contact Info) Description 06/13/2019 Historical Results Only [facility] - [facility] - Main [address] [address] Flynn Smith MD [address] [place] [phone] Social History Tobacco Use Types Packs/Day [...] (06/13/2019 13:36 EDT) USUAL [facility] - [facility] UUV 06/15/2019 11:08 EDT [facility] CitrateConcentration >100,000 CFU/ML 06/03 11:08 EDT [facility] 06/13/2019 13:3 6 EDT 06/13/2019 13:57 EDT Comment:VOID us Flynn Smith MD MICROBIOLOGY - GENERAL ORDERABLE S Final Result [facility] documented in this encounter Visit Diagnoses Not on filedocumented in this encounter Care Teams Field Captain Relationship Specialty Start Date End Date Jose Hillman MD PCP - General 04/02/09 07/06/19 Georgie Stewart, MOTION PICTURE EQUIPMENT SUPERVISOR [address] [place] [phone] PCP - General 07/07/19 documented as of this encounter
--- OUTSIDE RECORDS SUMMARY | 2024-10-17 19:52 | XMS_ITS | Encounter Summary ---
Author Organization [facility] Address [address] [place] [address] Care Team Providers Care [employer] Team Member Name Role Phone Jose Hillman MD Primary Care Provider Unav ailable Encounter Details Date Type Department Care Team (Latest Contact Info) Description 01/03/2019 11:18 EDT - 01/03/2019 23:59 EDT Hospital Encounter [facility] [address] [place] [address] Unknown, Provider, MD Discharge Disposition: Home or [...] Code Departure Means Destination Home or Self Skilled Nursing documented in this encounter Plan of Treatment Not on file documented as of this encounter Visit Diagnoses Not on filedocumented in this encounter Care Teams [employer] Team Member Relationship Specialty Start Date End Date Jose Hillman MD PCP - General 04/02/09 07/06/19 documented as of this encounter
--- OUTSIDE RECORDS SUMMARY | 2024-10-17 19:52 | XMS_ITS | Encounter Summary ---
Author Organization [facility] Address [address] [place] [address] Care Team Providers Care Territory Sales Executive Name Role Phone Georgie Stewart APRN Primary Care Provider + Reason for Visit * Reason Onset Date Comments Other 07/14/2019 surgery date? Encounter Details Date Type Department Care Team (Late st Contact Info) Description 07/14/2019 Telephone [facility] [address] [place] [address] MD [address] [facility], [address] [place] [address] Other (surgery date? ) Social [...] - Cyndee Magdaleno - 07/21/2019 0952 EST [phone] - maría elena wants to know when her surgery is scheduled please documented in this encounter Plan of Treatment Not on file documented as of this encounter Visit Diagnoses Not on filedocumented in this encounter Care Teams Territory Sales Executive Relationship Specialty Start Date End Date Georgie Stewart APRN [address] [place] [address], [place] [phone] PCP - General 07/07/19 documented as of this encounter
--- OUTSIDE RECORDS SUMMARY | 2024-10-17 19:52 | XMS_ITS | Encounter Summary ---
Author Organization [facility] Address [address] [place] [address] Care Team Providers Care Cardiology Coordinator Name Role Phone Jose Hillman MD Primary Care Provider Unav ailable Encounter Details Date Type Department Care Team (Latest Contact Info) Description 05/19/2019 11:21 EDT - 05/19/2019 23:[address] [facility] [address] [place] [address] Unknown, Provider, MD Discharge Disposition: Home or [...] Code Departure Means Destination Home or Self Nursing Home documented in this encounter Plan of Treatment Not on file documented as of this encounter Visit Diagnoses Not on filedocumented in this encounter Care Teams Cardiology Coordinator Relationship Specialty Start Date End Date Jose Hillman MD PCP - General 04/02/09 07/06/19 documented as of this encounter
--- OUTSIDE RECORDS SUMMARY | 2024-10-17 19:52 | XMS_ITS | Encounter Summary ---
Author Organization [facility] Address [address] [place] [address] Care Team Providers Care Shopper Marketing Manager Name Role Phone Jose Hillman MD Primary Care Provider Unav ailable Encounter Details Date Type Department Care Team (Late st Contact Info) Description 05/19/2019 Historical Results Only [facility] Radiology Results [address] [place] [address] MD [address] [facility], [address] [place] [address] Social History Tobacco Use Types [...] noncritical result requiring ? follow-up on the [email or web address] PACS findings application, to be tracked by ? the [facility] tracking system. ? REPORT SIGNED IN OTHER VENDOR SYSTEM 05/19/2019 ?Reported By: Isaak Gautam MD ? CC: ? Transcribed Date/Time: 05/19/2019 (0831) ? Snapper On: ? Printed Date/Time: 05/21/2019 (1721) ? PAGE [...] a noncritical result requiring follow-up on the [email or web address] PACS findings application, to be tracked by the [facility] tracking system. REPORT SIGNED IN OTHER VENDOR SYSTEM 05/19/2019 Reported By: Isaak Gautam MD CC: Transcribed Date/Time: 05/19/2019 (0831) Snapper On: SCRoxana Printed Date/Time: 05/21/2019 (1725) PAGE 2 Signed Report us Swati Lane MD IMG US ORDERABLES Final Resul t documented in this encounter Visit Diagnoses Not on filedocumented in this encounter Care Teams Shopper Marketing Manager Relationship Specialty Start Date End Date Jose Hillman MD PCP - General 04/02/09 07/06/19 documented as of this encounter
--- OUTSIDE RECORDS SUMMARY | 2024-10-17 19:52 | XMS_ITS | Encounter Summary ---
Author Organization [facility] Address [address] [place] [address] Care Team Providers Care Broach Setter Name Role Phone Jose Hillman MD Primary Care Provider Georgie Brennan APRN Primary Care Provider + Encounter Details Date Type Department Care Team (Late st Contact Info) Description 06/13/2019 Results Only [facility] Lab - Main [address] [address] Flynn Smith MD [address] [place] [phone] Social History Tobacco Use Types Packs/Day [...] 3.4 - 4.9 g/dL 06/13/2019 14:06 EDT [facility] ALKALINE PHOSPHATASE - [facility] 61 38 - 126 U/L 06/13/2019 14:06 EDT [facility] BILIRUBIN TOTAL 0.6 0.2 - 1.3 mg/dL 06/13/2019 14:06 [facility] BUN - [facility] 9(L) 10 - 26 mg/dL 06/13/2019 14:06 [facility] CALCIUM - [facility] 9.1 8.5 - 10.5 [...] 14:06 [facility] GLUCOSE - [facility] 105(H) 70 - 100 mg/dL 06/13/2019 14:06 [facility] Potassium 3.5 3.5 - 5.0 mEq/L 06/13/2019 14:06 [facility] Sodium 142 136 - 145 mEq/L 06/13/2019 14:06 [facility] TOTAL PROTEIN - [facility] 7.2 6.2 - 8.2 gm/dL 06/13/2019 14:06 [facility] SGOT/AST - [facility] 27 14 - 36 U/L 06/13/2019 14:06 [facility] SGPT/ALT - [facility] 37 9 - 52 U/L 9 14:06 [facility] 06/13/2019 13:4 6 EDT 06/13/2019 13:49 EDT Flynn Smith MD CHEMISTRY & BLOOD GAS ORDERABLES Final Result [facility] documented in this encounter Visit Diagnoses Not on filedocumented in this encounter Care Teams Broach Setter Relationship Specialty Start Date End Date Jose Hillman MD PCP - General 04/02/09 07/06/19 Georgie Stewart, [address] [place] [phone] PCP - General 07/07/19 documented as of this encounter
--- OUTSIDE RECORDS SUMMARY | 2024-10-17 19:52 | XMS_ITS | Encounter Summary ---
Author Organization [facility] Address [address] [place] [address] Care Team Providers Care Confectionery Drops Machine Operator Name Role Phone Jose Hillman MD Primary Care Provider Unav Aric Chow MD Primary Care Provider Un available Encounter Details Date Type Department Care Team (Late st Contact Info) Description 03/12/2007 Results Only [facility] - Maple conversion [address] [place] [address] Unknown, Provider, Social History Tobacco Use Types [...] Final Result Performing Organization Address [facility]/State/ZIP Co de Phone Number [facility] [address] [place] [address] * SYPHILIS SERO (RPR) (03/12/2007 9:55 EDT) Syphilis Sero (RPR) NONREACT. NR Dils [facility] 03/12/2007 9:55 EDT 03/12/2007 22:19 EDT us Provider Unknown IMMUNOLOGY AND SEROLOGY ORDE RABLES Final Result Performing Organization Address [facility] Co de Phone Number [facility] [address] [place] [address] * HIV ANTIBODY (NATHANAEL) (03/12/2007 9:55 EDT) HIV 1/2 Antibody NONREACT. NR [facility] 03/12/2007 9:55 EDT 03/12/2007 22:19 EDT us Provider Unknown IMMUNOLOGY AND SEROLOGY ORDE RABLES Final Result Performing Organization Address [facility] Co de Phone Number [facility] [address] [place] [address] * HEPATITIS B SURFACE ANTIGEN (03/12/2007 9:55 EDT) Hepatitis B Surface Ag Neg [facility] 03/12/2007 9:55 EDT 03/12/2007 22:19 EDT us Provider Unknown CHEMISTRY & BLOOD GAS ORDERA BLES Final Result Performing Organization Address [facility] Co de Phone Number [facility] [address] [place] [address] documented in this encounter Visit Diagnoses Not on filedocumented in this encounter Care Teams Confectionery Drops Machine Operator Relationship Specialty Start Date End Date Jose Hillman MD PCP - General 04/02/09 07/06/19 Aric Hurley MD PCP - General 01/13/09 04/01/09 documented as of this encounter
--- OUTSIDE RECORDS SUMMARY | 2024-10-17 19:52 | XMS_ITS | Encounter Summary ---
Author Organization [facility] Address [address] [place] [address] Care Team Providers Care Contract Associate Manager Name Role Phone Aric Hurley MD Primary Care Provider Un available Encounter Details Date Type Department Care Team (Latest Contact Info) Description 02/01/2009 17:00 EDT - 02/01/2009 17:01 EDT Hospital Encounter [facility] - Other [address] [place] [address] Abner Anand MD Discharge Disposition: Home or [...] on filedocumented in this encounter Care Teams Contract Associate Manager Relationship Specialty Start Date End Date Aric Hurley MD PCP - General 01/13/09 04/01/09 documented as of this encounter
--- OUTSIDE RECORDS SUMMARY | 2024-10-17 19:52 | XMS_ITS | Encounter Summary ---
Author Organization [facility] Address [address] [place] [address] Care Team Providers Care Card Cleaner Name Role Phone Jose Hillman MD Primary Care Provider Unav ailable Encounter Details Date Type Department Care Team (Latest Contact Info) Description 09/30/2018 11:44 EST - 09/30/2018 23:59 EST Hospital Encounter [facility] [address] [place] [address] Unknown, Provider, MD Discharge Disposition: Home or [...] Code Departure Means Destination Home or Self [facility] documented in this encounter Plan of Treatment Not on file documented as of this encounter Visit Diagnoses Not on filedocumented in this encounter Care Teams Card Cleaner Relationship Specialty Start Date End Date Jose Hillman MD PCP - General 04/02/09 07/06/19 documented as of this encounter
--- OUTSIDE RECORDS SUMMARY | 2024-10-17 19:52 | XMS_ITS | Encounter Summary ---
Author Organization [facility] Address [address] [place] [address] Care Team Providers Care Special Delivery Worker Name Role Phone Aric Hurley MD Primary Care Provider Un available Encounter Details Date Type Department Care Team (Late st Contact Info) Description 02/01/2009 Orders Only [facility] Adult Primary Care - [address] [id number] Unknown, Provider, Social History Tobacco Use Types [...] Final Result Performing Organization Address [facility] Co de Phone Number [facility] [address] [place] [address] * SYPHILIS SERO (RPR) (02/01/2009 7:42 EDT) Pathologist [facility] Syphilis Sero (RPR) NONREACT. NR Dils [facility] Blood specimen (specimen) 02/01/2009 7:42 EDT 02/01/2009 22:23 EDT us Provider Unknown IMMUNOLOGY AND SEROLOGY ORDE CHICA Final Result Performing Organization Address [facility] Co de Phone Number [facility] [address] [place] [address] * RUBELLA IGG ANTIBODY (02/01/2009 7:42 EDT) Pathologist [facility] Rubella IgG Ab Antibody detected Assayed utilizing the [facility] Immulite 2500. Values may vary with other methods. [facility] Blood specimen (specimen) 02/01/2009 7:42 EDT 02/01/2009 22:23 EDT us Provider Unknown CHEMISTRY & BLOOD GAS ORDERA BLES Final Result Performing Organization Address [facility] Co de Phone Number [facility] [address] [place] [address] * HEPATITS B SURFACE ANTIGEN (02/01/2009 7:42 EDT) Pathologist [facility] Hepatitis B Surface Ag Negative Reference Range: ??Negative [facility] Blood specimen (specimen) 02/01/2009 7:42 EDT 02/01/2009 22:23 EDT us Provider Unknown CHEMISTRY & BLOOD GAS ORDERA BLES Final Result Performing Organization Address [facility] Co de Phone Number [facility] [address] [place] [address] documented in this encounter Visit Diagnoses Not on filedocumented in this encounter Care Teams Special Delivery Worker Relationship Specialty Start Date End Date Aric Hurley MD PCP - General 01/13/09 04/01/09 documented as of this encounter
--- OUTSIDE RECORDS SUMMARY | 2024-10-17 19:52 | XMS_ITS | Encounter Summary ---
Author Organization [facility] Address [address] [place] [address] Care Team Providers Care Export Sales Manager Name Role Phone Jose Hillman MD Primary Care Provider Unav ailable Encounter Details Date Type Department Care Team (Late st Contact Info) Description 04/06/2009 Orders Only [facility] [phone] Abner Anand MD Social History Tobacco Use [...] Procedure Name Priority Date/Time Associated Diagnosis Comments [facility] ROUTINE 04/06/2009 14:46 EDT documented in this encounter Results * [facility] ROUTINE (04/06/2009 14:46 EDT) Anatomical Region Laterality Modality Other 04/06/2009 14:4 6 EDT 04/13/2009 5:40 EDT Narrative 04/13/2009 5:40 EDT Please refer to the separate [facility] report. ??Contact Maternal Medicine. Procedure Note 04/13/2009 Please refer to the separate [facility] report. Contact Maternal Medicine. Abner Anand MD [facility] ORDERABLES Final Re sult documented in this encounter Visit Diagnoses Not on filedocumented in this encounter Care Teams Export Sales Manager Relationship Specialty Start Date End Date Jose Hillman MD PCP - General 04/02/09 07/06/19 documented as of this encounter
--- OUTSIDE RECORDS SUMMARY | 2024-10-17 19:52 | XMS_ITS | Encounter Summary ---
Author Organization [facility] Address [address] [place] [address] Care Team Providers Care Internal Grinder Set Up Operator Name Role Phone Jose Hillman MD Primary Care Provider Georgie Brennan APRN Primary Care Provider + Encounter Details Date Type Department Care Team (Late st Contact Info) Description 06/30/2019 Results Only [facility] - Main [place] [address] [place] [address] MD [address] [place] [address], [address] [place] [address] Social History Tobacco Use Types [...] Procedure Name Priority Date/Time Associated Diagnosis Comments [facility] [place] [facility] Routine 06/30/2019 11 :22 EDT COMPLETE BLOOD COUNT WITH DIFFERENTIAL (AUTO) Routine 06/30/2019 11:22 EDT TYPE AND SCREEN Routine 06/30/2019 11:22 EDT documented in this encounter Results * TYPE AND SCREEN (06/30/2019 11:22 EDT) [facility] O Positive [facility] Antibody Screen NEGATIVE [facility] Specimen Expires: 07-21-19 [id number] [facility] 06/30/2019 11:2 2 EDT 06/30/2019 11:22 EDT Narrative [facility] - 06/30/2019 11:12 EDT Does PT Have a Latex Allergy? YES IS THIS A PREOPERATIVE PATIENT? N us Swati Lane MD BLOOD BANK TESTS Final Result Performing Organization Address City/[facility]/ZIP Co de Phone Number [facility] * [facility] SCREEN - CV (06/30/2019 11:22 EDT) [facility] NEG 06/30/2019 11:43 EDT [facility] 06/30/2019 11:2 2 EDT 06/30/2019 11:22 EDT Narrative [facility] - 06/30/2019 11:43 EDT Does PT Have a Latex Allergy? YES Enter/Edit CPT and ICD codes? N us Swati Lane MD HEMATOLOGY & PF4 ORDERABLES F inal Result [facility] * COMPLETE BLOOD COUNT WITH DIFFERENTIAL (AUTO) (06/30/2019 11:22 EDT) Pathologist [facility] ABSOLUTE NEUTROPHIL COUN - [facility] 4.3 2.2 - 8.85 10e3/uL 06/30/2019 11:32 EDT [facility] BASO # - [facility] 0.05 0.01 - 0.11 10e/uL 06/30/2019 11:32 EDT [facility] BASO % - [facility] 1 0 - 2 % 06/30/2019 11:32 EDT [facility] EOS # - [facility] 0.16 0.03 - 0.61 10e3/ul 06/30/2019 11:32 EDT [facility] EOS % - [facility] 2 0 - 5 % 06/30/2019 11:32 [facility] GRAN % - [facility] 58.7 40 - 80 % 06/30/2019 11:32 [facility] HEMATOCRIT - [facility] 38.3 34.9 - 44.4 % 06/30/2019 11:32 [facility] HEMOGLOBIN - CV 12.6 11.6 - 15.2 g/dl 06/30/2019 11:32 [facility] IG# - [facility] 0.02 0 - 0.7 10e3/uL 06/30/2019 11:32 [facility] IG% - [facility] 0.3 0 - 0.9 % 06/30/2019 11:32 [facility] LYMPH # - [facility] 2.3 1.09 - 3.3 10e3/ul 06/30/2019 11:32 [facility] LYMPH% - [facility] 31.7 20 - 40 % 06/30/2019 11:32 [facility] MEAN CORPUSCULAR HGB - CV 30.6 26.7 - 33.3 pg 06/30/2019 11:32 [facility] MEAN CORPUSCULAR HGB CONC - [facility] 32.9 32.1 - 35.9 g/dL 06/30/2019 11:32 [facility] MEAN CELL VOLUME - CV 93.0 81 - 98 fl 06/30/2019 11:32 [facility] MONO # - [facility] 0.5 0.1 - 0.8 10e3/uL 06/30/2019 11:32 [facility] MONO% - [facility] 6.4 0 - 12 % 06/30/2019 11:32 [facility] PLATELET COUNT 331 141 - 377 10e3/ul 06/30/2019 11:32 [facility] RED BLOOD COUNT - CV 4.12 3.86 - 5.04 10e3/ul 06/30/2019 11:32 [facility] RED CELL DISTRI WIDTH - [facility] 12.1 <14.7 % 06/30/2019 11:32 [facility] WHITE BLOOD COUNT - [facility] 7.4 4.0 - 12.4 10e3/ul 06/30/2019 11:32 EDT [facility] 06/30/2019 11:2 2 EDT 06/30/2019 11:22 EDT Narrative [facility] - 06/30/2019 11:32 EDT Does PT Have a Latex Allergy? YES us Swati Lane MD HEMATOLOGY & PF4 ORDERABLES F inal Result [facility] documented in this encounter Visit Diagnoses Not on filedocumented in this encounter Care Teams Internal Grinder Set Up Operator Relationship Specialty Start Date End Date Jose Hillman MD PCP - General 04/02/09 07/06/19 Georgie Stewart, DYER HELPER [address] [facility] [place] [phone] PCP - General 07/07/19 documented as of this encounter
--- OUTSIDE RECORDS SUMMARY | 2024-10-17 19:52 | XMS_ITS | Encounter Summary ---
Author Organization [facility] Address [address] [place] [address] Care Team Providers Care Care Mgr Name Role Phone Jose Hillman MD Primary Care Provider Georgie Brennan APRN Primary Care Provider + Encounter Details Date Type Department Care Team (Late st Contact Info) Description 06/12/2019 Results Only [facility] Radiology Results [address] [place], [place] [address] Jossie Lema, CHRISSIE [address] [place] [address] [place] [address] Social History Tobacco Use Types Packs/Day Years [...] CC: ? Transcribed Date/Time: 06/12/2019 (1221) ? Supervisor Compressed Yeast: ? Printed Date/Time: 06/12/2019 (1221) ? PAGE [...] Bolivar MD CC: Transcribed Date/Time: 06/12/2019 (1221) Supervisor Compressed Yeast: Printed Date/Time: 06/12/2019 (1945) PAGE 1 Signed Report Jossie Lema FINAL BLOCK PRESS OPERATOR IMG DIAGNOSTIC IMAGING ORDERA BLES Final Result documented in this encounter Visit Diagnoses Not on filedocumented in this encounter Care Teams Care Mgr Relationship Specialty Start Date End Date Jose Hillman MD PCP - General 04/02/09 07/06/19 Georgie Stewart, SENIOR WATER/WASTEWATER ENGINEER [address] [place] [phone] PCP - General 07/07/19 documented as of this encounter
--- OUTSIDE RECORDS SUMMARY | 2024-10-17 19:52 | XMS_ITS | Encounter Summary ---
Author Organization [facility] Address [address] [place] [address] Care Team Providers Care Tv Production Assistant Name Role Phone Jose Hillman MD Primary Care Provider Unav Aric Chow MD Primary Care Provider Un available Encounter Details Date Type Department Care Team (Late st Contact Info) Description 11/29/2006 Results Only [facility] - Maple conversion [address] [place] [address] Abner Aannd MD Social History Tobacco Use Types Packs/Day [...] [facility] ? Accession #: ? [id number] : ? 1985 (Age: 21) ??F ?Collect Date: ? 11/29/2006 Location: ? [facility] ? Receive Date: ? 11/30/2006 Provider: ?ABNER ANAND MD Copy to: ? Specimen/Source: ?ThinPrep Pap Test, Cervix/Endocervix, processed on [employer] ThinPrep Imaging System, with manual evaluation Last [...] ult [facility] [address] [place] [address] documented in this encounter Visit Diagnoses Not on filedocumented in this encounter Care Teams Tv Production Assistant Relationship Specialty Start Date End Date Jose Hillman MD PCP - General 04/02/09 07/06/19 Aric Hurley MD PCP - General 01/13/09 04/01/09 documented as of this encounter
--- OUTSIDE RECORDS SUMMARY | 2024-10-17 19:52 | XMS_ITS | Encounter Summary ---
Author Organization [facility] Address [address] [place] [address] Care Team Providers Care Faculty Research Physician Name Role Phone Jose Hillman MD Primary Care Provider Unav ailable Encounter Details Date Type Department Care Team (Late st Contact Info) Description 09/30/2018 Historical Results Only [facility] Radiology Results [address] [place] [address] MD [address] [facility], [address] [place] [address] Social History Tobacco Use Types [...] CC: ? Transcribed Date/Time: 09/30/2018 (1155) ? Clay Grinder: ? Printed Date/Time: 02/23/2019 (1217) ? PAGE [...] David Nguyen MD CC: Transcribed Date/Time: 09/30/2018 (9293) Clay Grinder: Printed Date/Time: 02/23/2019 (4604) PAGE 2 Signed Report us Swati Lane MD [facility] ORDERABLES Final Resul t * MA BREAST [...] CC: ? Transcribed Date/Time: 09/30/2018 (1155) ? Clay Grinder: ? Printed Date/Time: 02/23/2019 (1217) ? PAGE [...] David Nguyen MD CC: Transcribed Date/Time: 09/30/2018 (3783) Clay Grinder: Printed Date/Time: 02/23/2019 (1253) PAGE [address] MD IMG MAMMOGRAPHY ORDERABLES Fi nal Result documented in this encounter Visit Diagnoses Not on filedocumented in this encounter Care Teams Faculty Research Physician Relationship Specialty Start Date End Date Jose Hillman MD PCP - General 04/02/09 07/06/19 documented as of this encounter
--- OUTSIDE RECORDS SUMMARY | 2024-10-17 19:52 | XMS_ITS | Encounter Summary ---
Author Organization [facility] Address [address] [place] [address] Care Team Providers Care Leasing Sales Consultant Name Role Phone Jose Hillman MD Primary Care Provider Unav Aric Chow MD Primary Care Provider Un available Encounter Details Date Type Department Care Team (Late st Contact Info) Description 02/05/2007 Results Only [facility] - Maple conversion [address] [place] [address] Unknown, Provider, MD Social History Tobacco Use [...] trachomatis or Neisseria gonorrhoeae DNA detected by concrete finisher mediated amplification. [facility] Report Status Final [id number] [facility] 02/05/2007 13:2 9 EDT 02/05/2007 22:42 EDT us Provider Unknown MD MICROBIOLOGY - GENERAL ORDER RAFAEL Final Result [facility] [address] [place] [address] documented in this encounter Visit Diagnoses Not on filedocumented in this encounter Care Teams Leasing Sales Consultant Relationship Specialty Start Date End Date Jose Hillman MD PCP - General 04/02/09 07/06/19 Aric Hurley MD PCP - General 01/13/09 04/01/09 documented as of this encounter
--- OUTSIDE RECORDS SUMMARY | 2024-10-17 19:52 | XMS_ITS | Encounter Summary ---
Author Organization [facility] Address [address] [place] [address] Care Team Providers Care Manager Regional Name Role Phone Jose Hillman MD Primary Care Provider Unav ailable Encounter Details Date Type Department Care Team (Late st Contact Info) Description 08/11/2010 Results Only [facility] Services - [facility] ([facility]) [address] [place] [address] [id number] Abner Royal MD Social History Tobacco Use [...] MAR[facility] ELENA FOR[facility] ? Accession #: ? [id number] ? : ? 1985 (Age: 25) ??F [...] Res ult [facility] [address] [place] [address] documented in this encounter Visit Diagnoses Not on filedocumented in this encounter Care Teams Manager Regional Relationship Specialty Start Date End Date Jose Hillman MD PCP - General 04/02/09 07/06/19 documented as of this encounter
--- OUTSIDE RECORDS SUMMARY | 2024-10-17 19:52 | XMS_ITS | Encounter Summary ---
Author Organization [facility] Address [address] [place] [address] Care Team Providers Care Machine Stoppage Frequency Checker Name Role Phone Jose Hillman MD Primary Care Provider Unav Aric Chow MD Primary Care Provider Un available Encounter Details Date Type Department Care Team (Late st Contact Info) Description 10/11/2007 Results Only [facility] - Maple conversion [address] [place] [address] Abner Anand MD Social History Tobacco Use [...] [facility] ELENA FOR[facility] ? Accession #: ? [id number] : ? 1985 (Age: 22) ??F ?Collect Date: ? 10/11/2007 Location: ? [facility] ? Receive Date: ? 10/14/2007 Provider: ?ABNER ANAND MD Copy to: ? Specimen/Source: ?ThinPrep Pap Test, Cervix/Endocervix, processed on [employer] ThinPrep Imaging System, with manual evaluation Last [...] Res ult [facility] [address] [place] [address] documented in this encounter Visit Diagnoses Not on filedocumented in this encounter Care Teams Machine Stoppage Frequency Checker Relationship Specialty Start Date End Date Jose Hillman MD PCP - General 04/02/09 07/06/19 Aric Hurley MD PCP - General 01/13/09 04/01/09 documented as of this encounter
--- OUTSIDE RECORDS SUMMARY | 2024-10-17 19:52 | XMS_ITS | Encounter Summary ---
Author Organization [facility] Address [address] [place] [address] Care Team Providers Care Science Technicians Name Role Phone Jose Hillman MD Primary Care Provider Georgie Brennan APRN Primary Care Provider + Encounter Details Date Type Department Care Team (Late st Contact Info) Description 06/13/[address] [facility] - Main [address] [address] Flynn Smith MD [address] [place] [phone] Social History Tobacco Use Types Packs/Day [...] Procedure Name Priority Date/Time Associated Diagnosis Comments [facility] [place] Routine 06/13/2019 13:46 EDT COMPLETE BLOOD COUNT WITH DIFFERENTIAL (AUTO) Routine 06/13/2019 13:46 EDT URINE MICROSCOPIC Routine 06/13/2019 13: 30 EDT URINE CHEMICAL (DIP) & SEDIMENT (MICRO) WITHOUT REFLEX TO CULTURE Routine 06/13/2019 13:30 EDT documented in this encounter Results * (ABNORMAL) COMPLETE BLOOD COUNT WITH DIFFERENTIAL (AUTO) (06/13/2019 13:46 EDT) ABSOLUTE NEUTROPHIL COUN - [facility] 3.0 2.2 - 8.85 10e3/uL 06/13/2019 14:33 [facility] BASO # - [facility] 0.04 0.01 - 0.11 10e/uL 06/13/2019 14:33 [facility] BASO % - [facility] 1 0 - 2 % 06/13/2019 14:33 [facility] EOS # - [facility] 0.12 0.03 - 0.61 10e3/ul 06/13/2019 14:33 [facility] EOS % - [facility] 2 0 - 5 % 06/13/2019 14:33 [facility] GRAN % - [facility] 54.9 40 - 80 % 06/13/2019 14:33 [facility] HEMATOCRIT - [facility] 40.7 34.9 - 44.4 % 06/13/2019 14:33 [facility] HEMOGLOBIN - [facility] 13.7 11.6 - 15.2 g/dl 06/13/2019 14:33 [facility] IG# - [facility] 0.03 0 - 0.7 10e3/uL 06/13/2019 14:33 [facility] IG% - [facility] 0.5 0 - 0.9 % 06/13/2019 14:33 [facility] LYMPH # - [facility] 1.6 1.09 - 3.3 10e3/ul 06/13/2019 14:33 [facility] LYMPH% - [facility] 29.2 20 - 40 % 06/13/2019 14:33 [facility] MEAN CORPUSCULAR HGB - [facility] 30.6 26.7 - 33.3 pg 06/13/2019 14:33 [facility] MEAN CORPUSCULAR HGB CONC - [facility] 33.7 32.1 - 35.9 g/dL 06/13/2019 14:33 [facility] MEAN CELL VOLUME - [facility] 90.8 81 - 98 fl 06/13/2019 14:33 [facility] MONO # - [facility] [place] 0.7 0.1 - 0.8 10e3/uL 06/13/2019 14:33 [facility] MONO% - [facility] 12.5(H) 0 - 12 % 06/13/2019 14:33 [facility] PLATELET COUNT 243 141 - 377 10e3/ul 06/13/2019 14[facility]33 [facility] - [facility] 4.48 3.86 - 5.04 10e3/ul 06/13/2019 14:33 [facility] RED CELL DISTRI WIDTH - [facility] 12.0 <14.7 % 06/13/2019 14:33 [facility] WHITE BLOOD COUNT - [facility] 5.5 4.0 - 12.4 10e3/ul 06/13/2019 14:33 EDT [facility] 06/13/2019 13:4 6 EDT 06/13/2019 13:49 EDT us Flynn Smith MD HEMATOLOGY & PF4 ORDERABLES Nicolasa l Result Performing Organization Address City/[facility]/ZIP Co de Phone Number [facility] * [facility] (06/13/2019 13:46 EDT) [facility] 93 <251 U/L 06/13/2019 14:06 EDT [facility] 06/13/2019 13:4 6 EDT 06/13/2019 13:49 EDT us Flynn Smith MD CHEMISTRY & BLOOD GAS ORDERABLES Final Result Performing Organization Address [facility]/ZIP Co de Phone Number [facility] * URINE MICROSCOPIC (06/13/2019 13:30 EDT) URINE APPEARANCE - [facility] Cloudy CLEAR 06/13/2019 13:54 EDT [facility] URINE BACTERIA - [facility] FEW 06/13/2019 13:57 EDT [facility] URINE COLOR - [facility] Red YELLOW 2018 13:54 EDT [facility] Comment: Abnormal urine color may interfere with interpretation of the urinalysis reagent test strips. Urinalysis order has been reflexed to Urine Microscopic due to color interference. URINE RBC - [facility] TNTC rbc/hpf 06/13/20 19 13:57 EDT [facility] URCULTIF+? - [facility] Culture Ordered 06/13/2019 13:57 EDT [facility] URINE SQUAMOUS CELLS - [facility] FEW NEG #/hpf 06/13/2019 13:57 EDT [facility] URINE WBC - [facility] 5-10 NEG wbc/hpf 06/13/2019 13:57 EDT [facility] 06/13/2019 13:3 0 EDT 06/13/2019 13:42 EDT us Flynn Smith MD URINALYSIS ORDERABLES Final Resu lt [facility] documented in this encounter Visit Diagnoses Not on filedocumented in this encounter Care Teams Science Technicians Relationship Specialty Start Date End Date Jose Hillman MD PCP - General 04/02/09 07/06/19 Georgie Stewart, PAYROLL AND BENEFITS ANALYST [address] [place] [phone] PCP - General 07/07/19 documented as of this encounter
--- OUTSIDE RECORDS SUMMARY | 2024-10-17 19:52 | XMS_ITS | Encounter Summary ---
Author Organization [facility] Address [address] [place] [address] Care Team Providers Care Manager Clinical Name Role Phone Aric Hurley MD Primary Care Provider Un available Encounter Details Date Type Department Care Team (Late st Contact Info) Description 09/08/2008 Before PRISM Converted Visit (Maple) [facility] Adult Primary Care - [address] [address] Unknown, Provider, Social History Tobacco Use Types [...] ORDERA BLES Final Result Performing Organization Address [facility] Co de Phone Number [facility] [address] [place] [address] * FSH (09/08/2008 13:46 EST) [facility] 8.8 mIU/ml [facility] Comment: Follicular: 2-11 Mid-Cycle Peak: 3.4-35 Luteal: 1-9 Postmenopausal: 25-120 09/08/2008 13:4 6 EST 09/08/2008 22:23 EST us Provider Unknown CHEMISTRY & BLOOD GAS ORDERA BLES Final Result Performing Organization Address [facility] de Phone Number [facility] [address] [place] [address] * LH (09/08/2008 13:46 EST) Pathologist [facility] LH 15.8 mIU/ml [facility] Comment: Follicular: 1-18 Mid-Cycle Peak: 15-80 Luteal: 0.5-18 Postmenopausal: 12-55 09/08/2008 13:4 6 EST 09/08/2008 22:23 EST us Provider Unknown CHEMISTRY & BLOOD GAS ORDERA BLES Final Result Performing Organization Address [facility] de Phone Number [facility] [address] [place] [address] documented in this encounter Visit Diagnoses Not on filedocumented in this encounter Care Teams Manager Clinical Relationship Specialty Start Date End Date Aric Hurley MD PCP - General 01/13/09 04/01/09 documented as of this encounter
--- OUTSIDE RECORDS SUMMARY | 2024-10-17 19:52 | XMS_ITS | Encounter Summary ---
Author Organization [facility] Address [address] [place] [address] Care Team Providers Care Underwriting Technician Name Role Phone Georgie Stewart RUBEN Primary Care Provider + Reason for Visit * Reason Onset Date Comments Prior Auth, Other (i.e. radi ology, etc.) 08/11/2019 PER MAILED MEDICAID [place] APPRO DASHAWN [id number] Encounter Details Date Type Department Care Team (Late st Contact Info) Description 08/11/2019 Telephone [facility] OBGYN [address] [place] [address] MD [address] [place] [facility], [address] [place] [address] Prior Auth, Other (i.e. radiology, etc.) (PER [place]PR[place] [id number]) Social History Tobacco Use Types Packs/Day Years [...] - 08/11/2019 1047 EST PER MAILED [place]ICAID [place] APPROVED [id number] documented in this encounter Plan of Treatment Not on file documented as of this encounter Visit Diagnoses Not on filedocumented in this encounter Care Teams Underwriting Technician Relationship Specialty Start Date End Date Georgie Stewart, BUSINESS OBJECTS ARCHITECT [address] [place] [phone] PCP - General 07/07/19 documented as of this encounter
--- OUTSIDE RECORDS SUMMARY | 2024-10-17 19:52 | XMS_ITS | Encounter Summary ---
Author Organization [facility] Address [address] [place] [address] Care Team Providers Care [employer] Director Name Role Phone StewartGeorgie banda Pritesh MIRANDA Primary Care Provider + Encounter Details Date Type Department Care Team (Late st Contact Info) Description 08/15/2019 Results Only [facility] [phone] MD [address] [place] [address], [address] [place] [address] Social History Tobacco Use Types [...] Procedure Name Priority Date/Time Associated Diagnosis Comments [facility] Routine 08/15/2019 7: 32 EST COMPLETE BLOOD COUNT WITH DIFFERENTIAL (AUTO) Routine 08/15/2019 7:32 EST TYPE AND SCREEN Routine 08/15/2019 7:32 EST documented in this encounter Results * TYPE AND SCREEN (08/15/2019 7:32 EST) [facility] O Positive [facility] Antibody Screen NEGATIVE [facility] Specimen Expires: 08/18/19 AT 23:59 [facility] Comment: PATIENT'S RESPONSES INDICATE A HISTORY OF SURGERY, TRANSFUSION OR WITHIN THE LAST 3 MONTHS. FOR BLOOD PRODUCTS, THIS SPECIMEN WILL OUTDATE 72 HOURS FROM THE TIME IT WAS COLLECTED. ??ANY BLOOD PRODUCTS ORDERED AFTER 72 HOURS MUST BE WORKED UP ON A NEW SPECIMEN. 08/15/2019 7:32 EST 08/15/2019 7:32 EST Narrative [facility] - 08/15/2019 7:26 EST Does PT Have a Latex Allergy? YES IS THIS A PREOPERATIVE PATIENT? N Swati Lane MD BLOOD BANK TESTS Final Result [facility] * [facility] (08/15/2019 7:32 EST) [facility] NEG 08/15/2019 9:28 [facility] 08/15/2019 7:32 EST 08/15/2019 7:32 EST Narrative [facility] - 08/15/2019 9:28 EST Does PT Have a Latex Allergy? YES Enter/Edit CPT and ICD codes? N us Swati Lane MD HEMATOLOGY & PF4 ORDERABLES F inal Result [facility] * (ABNORMAL) COMPLETE BLOOD COUNT WITH DIFFERENTIAL (AUTO) (08/15/2019 7:32 EST) ABSOLUTE NEUTROPHIL COUN - [facility] 2.7 2.2 - 8.85 10e3/uL 08/15/2019 8:48 [facility] BASO # - [facility] 0.04 0.01 - 0.11 10e/uL 08/15/2019 8:48 [facility] BASO % - [facility] 1 0 - 2 % 08/15/2019 8:48 [facility] EOS # - [facility] 0.08 0.03 - 0.61 10e3/ul 08/15/2019 8:48 [facility] EOS % - [facility] 2 0 - 5 % 08/15/2019 8:48 [facility] GRAN % - [facility] 56.7 40 - 80 % 08/15/2019 8:48 [facility] HEMATOCRIT - [facility] 40.7 34.9 - 44.4 % 08/15/2019 8:48 [facility] HEMOGLOBIN - [facility] 13.0 11.6 - 15.2 g/dl 08/15/2019 8:48 [facility] IG# - [facility] 0.02 0 - 0.7 10e3/uL 08/15/2019 8:48 [facility] IG% - [facility] 0.4 0 - 0.9 % 08/15/2019 8:48 [facility] LYMPH # - [facility] 1.4 1.09 - 3.3 10e3/ul 08/15/2019 8:48 [facility] LYMPH% - [facility] 29.4 20 - 40 % 08/15/2019 8:48 [facility] MEAN CORPUSCULAR HGB - [facility] 27.8 26.7 - 33.3 pg 08/15/2019 8:48 [facility] MEAN CORPUSCULAR HGB CONC - [facility] 31.9(L) 32.1 - 35.9 g/dL 08/15/2019 8:48 [facility] MEAN CELL VOLUME - [facility] 87.0 81 - 98 fl 08/15/2019 8:48 [facility] MONO # - [facility] 0.5 0.1 - 0.8 10e3/uL 08/15/2019 8:48 [facility] MONO% - [facility] 11.0 0 - 12 % 08/15/2019 8:48 [facility] PLATELET COUNT 297 141 - 377 10e3/ul 08/15/2019 8:48 [facility] RED BLOOD COUNT - [facility] 4.68 3.86 - 5.04 10e3/ul 08/15/2019 8:48 [facility] RED CELL DISTRI WIDTH - [facility] 12.3 <14.7 % 08/15/2019 8:48 [facility] WHITE BLOOD COUNT - [facility] 4.8 4.0 - 12.4 10e3/ul 08/15/2019 8:48 [facility] 08/15/2019 7:32 EST 08/15/2019 7:32 EST Narrative [facility] - 08/15/2019 8:48 EST Does PT Have a Latex Allergy? YES us Swati Lane MD HEMATOLOGY & PF4 ORDERABLES F inal Result [facility] documented in this encounter Visit Diagnoses Not on filedocumented in this encounter Care Teams [employer] Director Relationship Specialty Start Date End Date Georgie Stewart, BOOKKEEPING MACHINE OPERATOR [address] [place] [address] PCP - General 07/07/19 documented as of this encounter
--- OUTSIDE RECORDS SUMMARY | 2024-10-17 19:52 | XMS_ITS | Encounter Summary ---
Author Organization [facility] Address [address] [place] [address] Care Team Providers Care Foreign Law Consultant Name Role Phone Jose Hillman MD Primary Care Provider Unav ailable Encounter Details Date Type Department Care Team (Late st Contact Info) Description 03/10/2019 Historical Results Only [facility] - Main [place] [address] [place] [address] MD [address] [place] [address], [address] [place] [address] Social History Tobacco Use Types [...] Procedure Name Priority Date/Time Associated Diagnosis Comments [facility] Routine 03/10/2019 10 :24 EDT COMPLETE BLOOD COUNT WITH DIFFERENTIAL (AUTO) Routine 03/10/2019 10:24 EDT TYPE AND SCREEN Routine 03/10/2019 10:24 EDT documented in this encounter Results * [facility] (03/10/2019 10:24 EDT) [facility] NEG 03/10/2019 12:06 EDT [facility] 03/10/2019 10:2 4 EDT 03/10/2019 10:24 EDT Narrative [facility] - 03/10/2019 12:06 EDT Does PT Have a Latex Allergy? YES Enter/Edit CPT and ICD codes? N us Swati Lane MD HEMATOLOGY & PF4 ORDERABLES F inal Result [facility] * (ABNORMAL) COMPLETE BLOOD COUNT WITH DIFFERENTIAL (AUTO) (03/10/2019 10:24 EDT) ABSOLUTE NEUTROPHIL COUN - [facility] 4.5 2.2 - 8.85 10e3/uL 03/10/2019 11:41 [facility] BASO # - [facility] 0.06 0.01 - 0.11 10e/uL 03/10/2019 11:41 [facility] BASO % - [facility] 1 0 - 2 % 03/10/2019 11:41 [facility] EOS # - [facility] 0.14 0.03 - 0.61 10e3/ul 03/10/2019 11:41 [facility] EOS % - [facility] 2 0 - 5 % 03/10/2019 11:41 [facility] GRAN % - [facility] 60.7 40 - 80 % 03/10/2019 11:41 [facility] HEMATOCRIT - [facility] 44.9(H) 34.9 - 44.4 % 03/10/2019 11:41 [facility] HEMOGLOBIN - [facility] 14.6 11.6 - 15.2 g/dl 03/10/2019 11:41 [facility] IG# - [facility] 0.04 0 - 0.7 10e3/uL 03/10/2019 11:41 [facility] IG% - [facility] 0.5 0 - 0.9 % 03/10/2019 11:41 [facility] LYMPH # - [facility] 2.2 1.09 - 3.3 10e3/ul 03/10/2019 11[facility] 29.5 20 - 40 % 03/10/2019 11:41 [facility] MEAN CORPUSCULAR HGB - [facility] 30.6 26.7 - 33.3 pg 03/10/2019 11:41 [facility] MEAN CORPUSCULAR HGB CONC - [facility] 32.5 32.1 - 35.9 g/dL 03/10/2019 11:41 [facility] MEAN CELL VOLUME - [facility] 94.1 81 - 98 fl 03/10/2019 11:41 [facility] MONO # - [facility] 0.5 0.1 - 0.8 10e3/uL 03/10/2019 11:41 [facility] MONO% - [facility] 6.6 0 - 12 % 03/10/2019 11:41 [facility] PLATELET COUNT 295 141 - 377 10e3/ul 03/10/2019 11:41 [facility] RED BLOOD COUNT - [facility] 4.77 3.86 - 5.04 10e3/ul 03/10/2019 11:41 [facility] RED CELL DISTRI WIDTH - [facility] 12.3 <14.7 % 03/10/2019 11:41 [facility] WHITE BLOOD COUNT - [facility] 7.4 4.0 - 12.4 10e3/ul 03/10/2019 11:41 [facility] 03/10/2019 10:2 4 EDT 03/10/2019 10:24 EDT Narrative [facility] - 03/10/2019 11:41 EDT Does PT Have a Latex Allergy? YES us Swati Lane MD HEMATOLOGY & PF4 ORDERABLES F inal Result [facility] * TYPE AND SCREEN (03/10/2019 10:24 EDT) Pathologist [facility] BLOOD TYPE - [facility] O Positive [facility] Antibody Screen NEGATIVE [facility] Specimen Expires: 03/31/19 [id number] [facility] 03/10/2019 10:2 4 EDT 03/10/2019 10:24 EDT Narrative [facility] - 03/10/2019 10:18 EDT Does PT Have a Latex Allergy? YES IS THIS A PREOPERATIVE PATIENT? Y IF YES, DATE OF SURGERY: 03/19/[address] MD BLOOD BANK TESTS Final Result [facility] documented in this encounter Visit Diagnoses Not on filedocumented in this encounter Care Teams Foreign Law Consultant Relationship Specialty Start Date End Date Jose Hillman MD PCP - General 04/02/09 07/06/19 documented as of this encounter
--- OUTSIDE RECORDS SUMMARY | 2024-10-17 19:52 | XMS_ITS | Encounter Summary ---
Author Organization [facility] Address [address] [place] [address] Care Team Providers Care Tube Machine Operator Helper Name Role Phone Jose Hillman MD Primary Care Provider Georgie Brennan APRN Primary Care Provider + Encounter Details Date Type Department Care Team (Late st Contact Info) Description 06/19/2019 Results Only Imaging [facility] [place] Results [address] [place] [address] Niranjan Oliver MD [address] [place] [address] Social History Tobacco Use Types [...] 06/19/2019 9:32 EDT ? EXAM: ULTRASOUND/TRANSVAGINAL - COMMUNICATION STUDIES PROFESSOR ? EX. D/ (0855) ? CLINICAL INFORMATION: ? Persitent VB ? TRANSVAGINAL - COMMUNICATION STUDIES PROFESSOR ? Signs and Symptoms/Comments: ??Persitent VB ? [...] MD ? Transcribed Date/Time: 06/19/2019 (09) ? Supervisor Cabinetmaker: R ? Printed Date/Time: 06/19/2019 (931) ? PAGE 2 ? Signed Report ? Procedure Note David Nguyen E - 07/12/2019 EXAM: ULTRASOUND/TRANSVAGINAL - COMMUNICATION STUDIES PROFESSOR EX. D/ (0855) CLINICAL INFORMATION: Persitent VB TRANSVAGINAL - COMMUNICATION STUDIES PROFESSOR Signs and Symptoms/Comments: Persitent VB Comparison: None [...] CC: Niranjan Oliver MD Transcribed Date/Time: 06/19/2019 (0111) Supervisor Cabinetmaker: Printed Date/Time: 06/19/2019 (7576) PAGE 2 Signed Report Niranjan Oliver MD [facility] OB ORDERABLES Fin al Result documented in this encounter Visit Diagnoses Not on filedocumented in this encounter Care Teams Tube Machine Operator Helper Relationship Specialty Start Date End Date Jose Hillman MD PCP - General 04/02/09 07/06/19 Georgie Stewart, TACTICAL INTELLIGENCE OFFICER [address] [place] [phone] PCP - General 07/07/19 documented as of this encounter
--- OUTSIDE RECORDS SUMMARY | 2024-10-17 19:52 | XMS_ITS | Encounter Summary ---
Author Organization [facility] Address [address] [place] [address] Care Team Providers Care Dive Superintendent Name Role Phone Jose Hillman MD Primary Care Provider Unav ailable Encounter Details Date Type Department Care Team (Late st Contact Info) Description 09/24/2018 Historical Results Only [facility] - Main [place] [address] [place] [address] MD [address] [place] [address]-, [address] [place] [address] Social History Tobacco Use Types [...] 2.06 0.46 - 4.68 uIU/mL 09/24/2018 12:28 [facility] 09/24/2018 11:0 0 EST 09/24/2018 11:00 EST Narrative [facility] - 09/24/2018 12:28 EST Does PT Have a Latex Allergy? YES us Swati Lane MD CHEMISTRY & BLOOD GAS ORDERAB LES Final Result [facility] * COMPLETE BLOOD COUNT WITH DIFFERENTIAL (AUTO) (09/24/2018 11:00 EST) ABSOLUTE NEUTROPHIL COUN - [facility] 5.1 2.2 - 8.85 10e3/uL 09/24/2018 11:40 [facility] BASO # - [facility] 0.05 0.01 - 0.11 10e/uL 09/24/2018 11:40 [facility] BASO % - [facility] 1 0 - 2 % 09/24/2018 11:40 [facility] EOS # - [facility] 0.12 0.03 - 0.61 10e3/ul 09/24/2018 11:40 [facility] EOS % - [facility] 1 0 - 5 % 09/24/2018 11:40 [facility] GRAN % - [facility] 59.6 40 - 80 % 09/24/2018 11:40 [facility] HEMATOCRIT - [facility] 42.7 34.9 - 44.4 % 09/24/2018 11:40 [facility] HEMOGLOBIN - [facility] 13.9 11.6 - 15.2 g/dl 09/24/2018 11:40 [facility] IG# - [facility] 0.03 0 - 0.7 10e3/uL 09/24/2018 11:40 [facility] IG% - [facility] 0.4 0 - 0.9 % 09/24/2018 11:40 [facility] LYMPH # - [facility] 2.6 1.09 - 3.3 10e3/ul 09/24/2018 11:40 [facility] LYMPH% - [facility] 30.3 20 - 40 % 09/24/2018 11:40 [facility] MEAN CORPUSCULAR HGB - [facility] 29.1 26.7 - 33.3 pg 09/24/2018 11:40 [facility] MEAN CORPUSCULAR HGB CONC - [facility] 32.6 32.1 - 35.9 g/dL 09/24/2018 11:40 [facility] MEAN CELL VOLUME - [facility] 89.3 81 - 98 fl 09/24/2018 11:40 [facility] MONO # - [facility] 0.7 0.1 - 0.8 10e3/uL 09/24/2018 11:40 [facility] MONO% - [facility] 7.7 0 - 12 % 09/24/2018 11:40 [facility] PLATELET COUNT 349 141 - 377 10e3/ul 09/24/2018 11:40 [facility] RED BLOOD COUNT - [facility] 4.78 3.86 - 5.04 10e3/ul 09/24/2018 11:40 [facility] RED CELL DISTRI WIDTH - [facility] 13.3 <14.7 % 09/24/2018 11:40 [facility] WHITE BLOOD COUNT - [facility] 8.6 4.0 - 12.4 10e3/ul 09/24/2018 11:40 [facility] 09/24/2018 11:0 0 EST 09/24/2018 11:00 EST Narrative [facility] - 09/24/2018 11:40 EST Does PT Have a Latex Allergy? YES us Swati Lane MD HEMATOLOGY & PF4 ORDERABLES F inal Result [facility] * HUMAN PAPILLOMAVIRUS (HPV) DETECTION-HIGH RISK TYPES (09/24/2018 9:38 EST) HPV other High Risk types, PCR NEG 09/30/2018 15:10 [facility] Comment: Negative for HPV types 16, 18, 31, 33, 35, 39, 45, 51, 52, 56, 58, 59, 66, 68. Method: Cervista HPV HR (High Risk) DNA test. 09/24/2018 9:38 EST 09/25/2018 9:[address] MD MICROBIOLOGY - GENERAL OSCARA MOUSTAPHARodolfo Final Result [facility] * PAP TEST (09/24/2018) 09/24/2018 09/25/2018 9:3 7 EST Narrative [facility] - 09/30/2018 15:53 EST ----- ------- Name: MARÍA ELENA FORD ? : 81 ?Age/Sex: 33/F ?Unit#: [id number] ? Loc: AGO ? Status: REG POV ?? Reg Date: 09/24/18 ? Pt.Phone Number: ? ----- ------- Specimen: [id number] ? STATUS: SOUT ?Spec Date:09/24/18 ? Physician Copies: ?Swati Lane MD ?? Tissues: ? Cervical/Endo Pap ?Georgie Stewart CPT: 73455 ?? Units: ??1 ----- ------- ? CYTOLOGY [...] diagnosis. Test Performed by [facility], [address] [place] [address] Design Director: Yee Hines MD PHD ----- ------- us Swati Lane MD PATHOLOGY ORDERABLES Final Re sult [facility] documented in this encounter Visit Diagnoses Not on filedocumented in this encounter Care Teams Dive Superintendent Relationship Specialty Start Date End Date Joes Hillman MD PCP - General 04/02/09 07/06/19 documented as of this encounter
--- OUTSIDE RECORDS SUMMARY | 2024-10-17 19:52 | XMS_ITS | Encounter Summary ---
Author Organization [facility] Address [address] [place] [address] Care Team Providers Care Pipe Organ Technician Name Role Phone Jose Hillman MD Primary Care Provider Georgie Brennan APRN Primary Care Provider + Encounter Details Date Type Department Care Team (Late st Contact Info) Description 06/19/2019 Results Only [facility] - Main [address] [address] Zoran Lubin MD [address] [place] [phone] Social History Tobacco Use Types Packs/Day [...] Procedure Name Priority Date/Time Associated Diagnosis Comments [facility] SCREEN - [facility] Routine 06/19/2019 6: 50 EDT COMPLETE BLOOD COUNT WITH DIFFERENTIAL (AUTO) Routine 06/19/2019 6:50 EDT C REACTIVE PROTEIN Routine 06/19/2019 6: 50 EDT COMPREHENSIVE METABOLIC PANEL (CMP) Routine 06/19/2019 6:50 EDT documented in this encounter Results * C REACTIVE PROTEIN (06/19/2019 6:50 EDT) [facility] C-Reactive Protein 7.7 <10.0 mg/L 06/19/2019 7:15 [facility] 06/19/2019 6:50 EDT 06/19/2019 6:59 EDT Zoran Lubin MD CHEMISTRY & BLOOD GAS ORDER RAFAEL Final Result [facility] * (ABNORMAL) COMPREHENSIVE METABOLIC PANEL (CMP) (06/19/2019 6:50 EDT) [facility] Albumin % 4.2 3.4 - 4.9 g/dL 06/19/2019 7:15 [facility] ALKALINE PHOSPHATASE - [facility] 62 38 - 126 U/L 06/19/2019 7:15 [facility] BILIRUBIN TOTAL 0.5 0.2 - 1.3 mg/dL 06/19/2019 7:15 [facility] BUN - [facility] 12 10 - 26 mg/dL 06/19/2019 7:15 [facility] CALCIUM - [facility] 9.4 8.5 - 10.5 mg/dL 06/19/2019 7:15 [...] [facility] GLUCOSE - [facility] 114(H) 70 - 100 mg/dL 06/19/2019 7:15 EDT [facility] Potassium 4.0 3.5 - 5.0 mEq/L 06/19/2019 7:15 EDT [facility] Sodium 141 136 - 145 mEq/L 06/19/2019 7:15 EDT [facility] TOTAL PROTEIN - [facility] 7.4 6.2 - 8.2 gm/dL 06/19/2019 7:15 EDT [facility] SGOT/AST - [facility] 23 14 - 36 U/L 06/19/2019 7:15 EDT [facility] SGPT/ALT - [facility] 38 9 - 52 U/L 9 7:15 EDT [facility] 06/19/2019 6:50 EDT 06/19/2019 6:59 EDT us Zoran Lubin MD CHEMISTRY & BLOOD GAS ORDER RAFAEL Final Result Performing Organization Address City/[facility]/ZIP Co de Phone Number [facility] * [facility] (06/19/2019 6:50 EDT) [facility] SCREEN [facility] NEG 06/19/2019 7:13 EDT [facility] 06/19/2019 6:50 EDT 06/19/2019 6:59 EDT Zoran Lubin MD HEMATOLOGY & PF4 ORDERABLES Final Result [facility] * COMPLETE BLOOD COUNT WITH DIFFERENTIAL (AUTO) (06/19/2019 6:50 EDT) ABSOLUTE NEUTROPHIL COUN - [facility] 4.7 2.2 - 8.85 10e3/uL 06/19/2019 7:02 EDT [facility] BASO # - [facility] 0.05 0.01 - 0.11 10e/uL 06/19/2019 7:02 EDT [facility] BASO % - [facility] [...] 3.86 - 5.04 10e3/ul 06/19/2019 7:02 EDT [facility] RED CELL DISTRI WIDTH - [facility] 12.1 <14.7 % 06/19/2019 7:02 EDT [facility] WHITE BLOOD COUNT - [facility] 8.0 4.0 - 12.4 e3/ul 06/19/2019 7:02 EDT [facility] 06/19/2019 6:50 EDT 06/19/2019 6:59 EDT us Zoran Lubin MD HEMATOLOGY & PF4 ORDERABLES Final Result [facility] documented in this encounter Visit Diagnoses Not on filedocumented in this encounter Care Teams Pipe Organ Technician Relationship Specialty Start Date End Date Jose Hillman MD PCP - General 04/02/09 07/06/19 Georgie Stewart, ENGINEERING PSYCHOLOGIST [address] [place] [address] PCP - General 07/07/19 documented as of this encounter
--- OUTSIDE RECORDS SUMMARY | 2024-10-17 19:52 | XMS_ITS | Encounter Summary ---
Author Organization [facility] Address [address] [place] [address] Care Team Providers Care Data Center Operator Name Role Phone Jose Hillman MD Primary Care Provider Georgie Brennan APRN Primary Care Provider + Encounter Details Date Type Department Care Team (Late st Contact Info) Description 06/13/[address] [facility] Rad[place] Results [address] [place] [address] Flynn Smith MD [address] [place] [address] Social History Tobacco Use Types [...] noncritical result requiring ? follow-up on the [employer] XIIS findings application, to be tracked by ? the [employer] tracking system. ? REPORT SIGNED IN OTHER VENDOR SYSTEM 06/13/2019 ?Reported By: Lexx Arias MD ? CC: ? Transcribed Date/Time: 06/13/2019 (1513) ? Energy Risk Management Analyst: ? Printed Date/Time: 06/13/2019 (435) ? PAGE 1 ? Signed Report ? Procedure Note Lexx Arias MD - 07/12/2019 EXAM: CAT SCAN/ABDOMEN PELVIS W/WO CONTRA EX. D/ (0600) CLINICAL INFORMATION: INDICATION: Question bladder infection.. COMPARISON: [...] a noncritical result requiring follow-up on the [employer] PACS findings application, to be tracked by the [facility] tracking system. REPORT SIGNED IN OTHER VENDOR SYSTEM 06/13/2019 Reported By: Lexx Arias MD CC: Transcribed Date/Time: 06/13/2019 (1513) Energy Risk Management Analyst: Printed Date/Time: 06/13/2019 (740) PAGE 1 Signed Report us Flynn Smith MD IMG CT ORDERABLES Final Result documented in this encounter Visit Diagnoses Not on filedocumented in this encounter Care Teams Data Center Operator Relationship Specialty Start Date End Date Jose Hillman MD PCP - General 04/02/09 07/06/19 Georgie Stewart APRN [address] [place] [phone] PCP - General 07/07/19 documented as of this encounter
--- OUTSIDE RECORDS SUMMARY | 2024-10-17 19:52 | XMS_ITS | Encounter Summary ---
Author Organization [facility] Address [address] [place] [address] Care Team Providers Care Firearms Expert Name Role Phone Georgei Stewart Pritesh [employer]CHO[employer] STANDARDS COACH Primary Care Provider + Reason for Visit * Reason Comments Pre-op Exam Encounter Details Date Type Department Care Team (Latest Contact Info) Description 07/23/2019 14:00 EST Office Visit [facility] [address] [place] [address] MD [address] [facility], [address] [place] [address] Dysfunctional uterine bleeding (Primary Dx); [...] Negative. Endo/Heme/Allergies: Negative. Psychiatric/Behavioral: Positive for depression. HUC History: Patient's last menstrual period was 06/05/2019 (approximate). Menses: irregular and heavy STI's: none Sexual activity: yes, with control manager male partner Contraception: female sterilization procedure Cervical [...] Allergies Allergen Reactions ??? Codeine Anaphylaxis ??? Noseszz-Icv-Bm-Acetaminophen Anaphylaxis ??? Sulfa (Sulfonamide Antibiotics) Anaphylaxis ??? Aspirin Other reaction(s): unsure of reaction ??? Greenup And Derivatives Other reaction(s): rash and hives [...] 08/18/2019 added in this encounter Care Teams Firearms Expert Relationship Specialty Start Date End Date Georgie Stewart, RUBEN [address] [place] [phone] PCP - General 07/07/19 documented as of this encounter
--- OUTSIDE RECORDS SUMMARY | 2024-10-17 19:52 | XMS_ITS | Encounter Summary ---
Author Organization [facility] Address [address] [place] [address] Care Team Providers Care Safety Analyst Name Role Phone Jose Hillman MD Primary Care Provider Unav ailable Encounter Details Date Type Department Care Team (Late st Contact Info) Description 06/19/2016 Results Only [facility] Clinical Genetics - [place] [address], [place] [id number] Opal Swift MD [address] [place] [address] Social History Tobacco Use Types [...] of Owen MantillaYI 08.30.2007 06/19/2016 19:42 EDT [facility] Comment Sent to [employer] for comparison purposes. 06/20/2016 11:39 EDT [facility] BLOOD SPECIMEN / Unknown 06/19/2016 19:41 EDT 06/19/2016 19:41 EDT us Opal Swift MD LAB INFO SERVICE AND SUPPO RT & PHONE RESULT Final Result [facility] [address] [place] [address] documented in this encounter Visit Diagnoses Not on filedocumented in this encounter Care Teams Safety Analyst Relationship Specialty Start Date End Date Jose Hillman MD PCP - General 04/02/09 07/06/19 documented as of this encounter
--- OUTSIDE RECORDS SUMMARY | 2024-10-17 19:52 | XMS_ITS | Encounter Summary ---
Author Organization [facility] Address [address] [place] [address] Care Team Providers Care Fire Alarm Repairer Name Role Phone Jose Hillman MD Primary Care Provider Georgie Brennan APRN Primary Care Provider + Encounter Details Date Type Department Care Team (Late st Contact Info) Description 07/01/2019 Results Only [facility] - Main [place] [address] [place] [address] MD [address] [place] [address], [address] [place] [address] Social History Tobacco Use Types [...] (07/01/2019) 07/01/2019 07/01/2019 9:2 1 EDT Narrative [facility] - 07/04/2019 16:42 EDT ----- ------- Name: MARÍA ELENA FORD ? : [birth year] ?Age/Sex: 33/F ?Unit#: [id number] ? Loc: SDS ? Status: DEP SDC ?? Reg Date: 07/01/19 ? Pt.Phone Number: ? ----- ------- Specimen: [id number] ? STATUS: SOUT ?Spec Date:07/01/19 ? Physician Copies: ?Swati Lane MD ?? Tissues: A ?? Endometrial curettings ? Georgie Stewart CPT: 24591 ?? Units: ??1 ? 32168 ? 1 ?FINAL DIAGNOSIS ? ENDOMETRIUM, CURETTAGE; [...] performance characteristics have been determined by [facility] and/or by the referring laboratory. ??The positive and negative controls worked appropriately. If immunoperoxidase staining has been performed on alcohol fixed cytology specimens, which has not been fully validated, the assays should be interpreted with caution and correlated with clinical data. ??This laboratory is certified under the Clinical Laboratory Improvement Amendments of 1987 ----- ------- Patient: MARÍA ELENA FORD ? #[id number] ? (Continued) ----- ------- Specimen: [id number] ? Received: 07/01/19 ?(Continued) ?COMMENT ? (Continued) [...] confirmed the above diagnosis. Test Performed by [facility], [address] [place] [id number] Automotive Designer: Yee Hines MD PHD ----- ------- us Swati Lane MD PATHOLOGY ORDERABLES Final Re grant hospitalt [facility] Organization Address City/State/ZIP Co de Phone Number [facility] documented in this encounter Visit Diagnoses Not on filedocumented in this encounter Care Teams Fire Alarm Repairer Relationship Specialty Start Date End Date Jose Hillman MD PCP - General 04/02/09 07/06/19 Georgie Stewart, [address] [place] [phone] PCP - General 07/07/19 documented as of this encounter
--- OUTSIDE RECORDS SUMMARY | 2024-10-17 19:52 | XMS_ITS | Encounter Summary ---
Author Organization [facility] Address [address] [place] [address] Care Team Providers Care Display Maker Name Role Phone Georgie Stewart APRN Primary Care Provider + Reason for Referral * Laboratory Services (Routine) - New Request Specialty Diagnoses / Procedures Referred By Contac t Referred To Contact Diagnoses DUB (dysfunctional uterine bleeding) Procedures MISCELLANEOUS TEST, NON MARCOS Swati Lane MD Phone: tel: fax: Referral ID Status Reason Start Date Expiration Date V isits Requested Visits Authorized [id number] New Request 2019 1 1 * Laboratory Services (Routine) - New Request Specialty Diagnoses / Procedures Referred By Contac t Referred To Contact Diagnoses DUB (dysfunctional uterine bleeding) Procedures HEMOGLOBIN A1C Swati Lane MD Phone: tel: fax: Referral ID Status Reason Start Date Expiration Date V isits Requested Visits Authorized [id number] New Request 2019 1 1 * Laboratory Services (Routine) - New Request Specialty Diagnoses / Procedures Referred By Contac t Referred To Contact Diagnoses DUB (dysfunctional uterine bleeding) Procedures PRE-OP BLOOD BANK DRAW Rani Reyes RN Referral ID Status Reason Start Date Expiration Date V isits Requested Visits Authorized [id number] New Request 2019 1 1 * Laboratory Services (Routine) - New Request Specialty Diagnoses / Procedures Referred By Contac t Referred To Contact Diagnoses DUB (dysfunctional uterine bleeding) Procedures CREATININE Swati Lane MD Phone: tel: fax: Referral ID Status Reason Start Date Expiration Date V isits Requested Visits Authorized [id number] New Request 2019 1 1 * Laboratory Services (Routine) - New Request Specialty Diagnoses / Procedures Referred By Contac t Referred To Contact Diagnoses DUB (dysfunctional uterine bleeding) Procedures GLUCOSE, SERUM Swati Lane MD Phone: tel: fax: Referral ID Status Reason Start Date Expiration Date V isits Requested Visits Authorized [id number] New Request 2019 1 1 * Laboratory Services (Routine) - New Request Specialty Diagnoses / Procedures Referred By Contac t Referred To Contact Diagnoses DUB (dysfunctional uterine bleeding) Procedures COMPLETE BLOOD COUNT AND DIFFERENTIAL Swati Lane MD Phone: tel: fax: Referral ID Status Reason Start Date Expiration Date V isits Requested Visits Authorized [id number] New Request 2019 1 1 Reason for Visit * Reason Onset Date Comments Orders (Non Pre-visit) 2019 preop lab orders Encounter Details Date Type Department Care Team (Late st Contact Info) Description [address] [facility] [address] [place] [address] Rani Reyes RN Orders (Non Pre-visit) (preop [...] uterine bleeding) Ordered: 2019 MISCELLANEOUS TEST, NON LA CROSSE Lab Routine DUB (dysfunctional uterine bleeding) Ordered: [...] 4.0 - 6.0 % 08/15/2019 13:00 EST [facility] Comment: > or =18 years: ??Increased [...] Avg Glucose 103 mg/dL 9 13:00 EST [facility] Blood VENOUS BLOOD / Unknown 08/15/2019 7:31 EST 08/15/2019 7:32 EST Narrative [facility] - 08/15/2019 13:00 EST Does PT Have a Latex Allergy? YES us Swati Lane MD CHEMISTRY & BLOOD GAS ORDERAB LES Final Result Performing Organization Address [facility]/ZIP Co de Phone Number [facility] * CREATININE (08/15/2019 7:31 EST) Pathologist [facility] [place] CREATININE 0.80 0.52 - 1.04 mg/dL 08/15/2019 9:23 [facility] eGFR >60 08/15/2019 9:23 [facility] Comment: Chronic renal impairment is defined as GFR <60 Multiply result by 1.210 for patients. eGFR calculated using the IDMS-traceable MDRD Study Equation. ??(effective 07/06/2014) Blood VENOUS BLOOD / Unknown 08/15/2019 7:31 EST 08/15/2019 7:31 EST Narrative [facility] - 08/15/2019 9:23 EST Does PT Have a Latex Allergy? YES us Swati Lane MD CHEMISTRY & BLOOD GAS ORDERAB LES Final Result [facility] * GLUCOSE, SERUM (08/15/2019 7:31 EST) Pathologist [facility] GLUCOSE - [facility] 99 70 - 100 mg/dL 08/15/2019 9:23 EST [facility] Blood VENOUS BLOOD / Unknown 08/15/2019 7:31 EST 08/15/2019 7:31 EST Narrative [facility] - 08/15/2019 9:23 EST Does PT Have a Latex Allergy? YES us Swati Lane MD CHEMISTRY & BLOOD GAS ORDERAB LES Final Result [facility] documented in this encounter Visit Diagnoses Diagnosis DUB (dysfunctional uterine bleeding)- Primary Other disorder of menstruation and other abnormal bleeding from female genital tract documented in this encounter Care Teams Display Maker Relationship Specialty Start Date End Date Georgie Stewart, [employer] [address] [place] [phone] PCP - General 07/07/19 documented as of this encounter
--- OUTSIDE RECORDS SUMMARY | 2024-10-17 19:52 | XMS_ITS | Encounter Summary ---
Author Organization [facility] Address [address] [place] [address] Care Team Providers Care Battery Loader Name Role Phone Jose Hillman MD Primary Care Provider Unav ailable Encounter Details Date Type Department Care Team (Late st Contact Info) Description 08/09/[address] [facility] OBGYN Services - Main [place] [address] [place] [address] Jose Hillman MD Spotting in Social History [...] applicable documented in this encounter Care Teams Battery Loader Relationship Specialty Start Date End Date Jose Hillman MD PCP - General 04/02/09 07/06/19 documented as of this encounter
--- OUTSIDE RECORDS SUMMARY | 2024-10-17 19:52 | XMS_ITS | Encounter Summary ---
Author Organization [facility] Address [address] [place] [address] Care Team Providers Care Dip Lube Operator Name Role Phone Jose Hillman MD Primary Care Provider Unav ailable Encounter Details Date Type Department Care Team (Latest Contact Info) Description 04/06/2009 12:54 EDT - 04/06/2009 23:59 EDT Hospital Encounter [facility] [place], [place] [address] [place] [address] Theo Mchugh MD Discharge Disposition: Home or [...] Code Departure Means Destination Home or Self Senior Living documented in this encounter Plan of Treatment [...] MARÍA ELENA FORD ? Accession #: ? [id number] ? : ? 1985 (Age: 24) ??F [...] Res ult [facility] [address] [place] [address] documented in this encounter Visit Diagnoses Not on filedocumented in this encounter Care Teams Dip Lube Operator Relationship Specialty Start Date End Date Jose Hillman MD PCP - General 04/02/09 07/06/19 documented as of this encounter
--- OUTSIDE RECORDS SUMMARY | 2024-10-17 19:52 | XMS_ITS | Encounter Summary ---
Author Organization [facility] Address [address] [place] [address] Care Team Providers Care Watch Supervisor Name Role Phone Aric Hurley MD Primary Care Provider Un available Encounter Details Date Type Department Care Team (Late st Contact Info) Description 11/02/2008 Before PRISM Converted Visit (Maple) [facility] Adult Primary Care - [address] [phone] Unknown, Provider, Social History Tobacco Use Types [...] Result No Chlamydia trachomatis DNA detected by religious leader mediated amplification. [facility] Result No Neisseria gonorrhoeae DNA detected by religious leader mediated amplification. [facility] 11/02/2008 17:2 0 EST 11/02/2008 23:10 EST us Provider Unknown MICROBIOLOGY - GENERAL ORDER RAFAEL Final Result [facility] [address] [address] * CYTOPATHOLOGY (11/02/2008 0:00 EST) Pathology Report: CYTOPATHOLOGY REPORT ? Reports generated via electronic interface contain original data; ? however they are lacking the format of the original report. ? Caution should be taken when reading/interpreti ng unformatted reports. ? Name: ? MARÍA ELENA FORD ? Accession #: ? [id number] ? : ? 1985 (Age: 23) ??F [...] Res ult [facility] [address] [place] [address] documented in this encounter Visit Diagnoses Not on filedocumented in this encounter Care Teams Watch Supervisor Relationship Specialty Start Date End Date Aric Hurley MD PCP - General 01/13/09 04/01/09 documented as of this encounter
[2024-10-17 20:00] LABS: Anion Gap 8.1 mmol/L (3-11); BUN 8 mg/dL (7-18); CO2 25.9 mmol/L (21.0-32.0); CREATININE 0.9 mg/dL (0.55-1.02); Chloride 105 mmol/L (98-107); Estimated GFR 82.37 (mL/min/1.73m2); Glucose 102 mg/dL (74-106); Potassium 3.4 mmol/L (3.5-5.1); Sodium 139 mmol/L (136-145)
[2024-10-17 20:01] LABS: Troponin I < 4 ng/L (<or=51)
--- NOTE | 2024-10-17 20:08 | DI.RAD_ITS ---
Exam(s) XR CHEST 2V PA LATERAL EXAM: XR CHEST 2V PA LATERAL CLINICAL HISTORY: cough. TECHNIQUE: 2D digital imaging was performed. COMPARISON: Prior chest x-ray 03/01/2022 FINDINGS: 2 views: Heart size is normal. The mediastinum is not widened. Left lung is clear. There is platelike atelectasis in the mid right lung field adjacent to the minor fissure. Mild increased markings are noted in the right lower lobe. No pleural effusions. No pulm onary edema. No pneumothorax. IMPRESSION: There is platelike atelectasis in the right middle lobe. Possible mild developing infiltrate. There are no pleural effusions. DATA REPOSITORY: RADIATION DOSE DELIVERED:
[2024-10-17] MEDS: Azithromycin 250 MG TAB 500 MG PO (20:24)
--- NOTE | 2024-10-17 20:34 | DI.VRAD_ITS ---
PROCEDURE INFORMATION: Exam: XR Chest Exam date and time: 10/17/2024 8:05 PM Age: 39 years old Clinical indication: Cough TECHNIQUE: Imaging protocol: Radiologic exam of the chest. Views: 2 views. COMPARISON: CR XR PORTABLE CHEST AP 03/01/2022 7:51 PM FINDINGS: Lungs: There is mild linear scarring and/or atelectasis in the anterior segment of the right upper lobe and the left lower lobe. There is no consolidation. Pleural spaces: No effusions or pneumothoraces. Heart/Mediastinum: The heart is normal in size. The superior mediastinum is unremarkable. Bones/joints: No acute bony changes of the ribs. IMPRESSION: 1. Mild linear atelectasis and/or scarring in the right upper lobe and left lower lobe. Early developing infiltrate of course can not be excluded. There is no consolidation. If clinically indicated recommend a chest CT scan. Dictated and Authenticated by: Marck Herrera MD. Orderin Lavern Alegre MD
== END 2024-10-17 20:31 | disposition home or self-care (01) ==
PROVIDERS: Emergency Provider Emergency Medicine; PCP Nurse Practitioner Family
DX: J18.9 Pneumonia, unspecified organism (principal); R07.9 Chest pain, unspecified; R06.02 Shortness of breath
CPT/HCPCS: 36415; 80048; 93005; 96374; 99284; 71046; 84484; 85025; 93010; J2919

== ENCOUNTER 2024-10-20 19:01 | Emergency (ER) | payer MEDICAID, SELFPAY ==
[2024-10-20] VITALS (21 sets, daily range): BP systolic 128–191; BP diastolic 90–134; PULSE 68–92; RESP 12–28; TEMP 36.4; O2SAT 92–98
--- NOTE | 2024-10-20 19:00 | RT.EKG_ITS ---
APPROVED REPORT Exam: Resting ECG Reason for Exam: chest pain Patient Location: E HR:87 bpm ECG Measurements Heart Rate 87 AXIS NH 137 P 53 QRSd 98 QRS -27 QT 365 T 57 QTc 441 Conclusion Sinus rhythm...normal P axis, V-rate 60- 99 Probable left ventricular hypertrophy...(RaVL+SV3)xQRSd >300
[2024-10-20 19:46] LABS: Bilirubin Negative (Negative); Blood Trace-intact (Negative); Clarity Clear (Clear); Glucose Negative (Negative); Ketones Negative (Negative); Leukocyte Esterase Negative (Negative); Nitrite Negative (Negative); Specific Gravity 1.025 (1.005-1.025); Urobilinogen 0.2 mg/dL (Up to 0.2); pH 6.5 (5-8)
[2024-10-20 19:51] LABS: Abs Immature Grans 0.26 10^3/uL (0.0-0.06); Absolute Basophil Count 0.06 10^3/uL (0.0-0.2); Absolute Eosinophil Count 0.01 10^3/uL (0.0-0.7); Absolute Lymphocyte Count 2.47 10^3/uL (1.2-3.4); Absolute Monocyte Count 0.97 10^3/uL (0.1-0.8); Basophils % 0.4 %; Eosinophils % 0.1 %; HGB 14.6 g/dL (11.2-15.7); Immature Grans % 1.8 %; Lymphocytes % 16.8 %; MCH 30.3 pg (27.0-33.0); MCHC 33.2 % (32.0-36.0); MCV 91 fL (80-95); MPV 9.7 fL (8.0-11.0); Monocytes % 6.6 %; Neutrophils % 74.3 %; Platelet Count 424 10^3/uL (130-400); RBC 4.82 10^6/uL (3.93-5.22); RDW 11.9 % (11.7-14.6); RDW-SD 39.8 fL; WBC 14.73 10^3/uL (4.4-10.8)
[2024-10-20 19:53] LABS: Absolute Neutrophil Count 10.94 10^3/uL (1.2-6.7)
[2024-10-20 19:53] LABS: Epithelial Cells Many HPF (Negative); RBC 0-2 HPF (0-2); WBC Negative HPF (0-5)
[2024-10-20 19:54] LABS: Bacteria Few HPF (Negative); C & S Indicated? No; Crystals Negative HPF (Negative); Mucus Negative (Negative)
[2024-10-20 20:13] LABS: ALT 27 U/L (14-59); AST 11 U/L (15-37); Albumin 3.5 g/dL (3.4-5.0); Alkaline Phosphatase 92 U/L (46-116); Anion Gap 7.3 mmol/L (3-11); BUN 11 mg/dL (7-18); Bilirubin, Total 0.23 mg/dL (0.2-1.0); CO2 26.7 mmol/L (21.0-32.0); Calcium 9.5 mg/dL (8.5-10.1); Chloride 105 mmol/L (98-107); Estimated GFR 72.58 (mL/min/1.73m2); Glucose 165 mg/dL (74-106); Lipase 35 U/L (<78); Potassium 3.6 mmol/L (3.5-5.1); Sodium 139 mmol/L (136-145); Total Protein 7.4 g/dL (6.4-8.2)
[2024-10-20 20:18] LABS: D-Dimer 194 ng/mlFEU (<500); Troponin I < 4 ng/L (<or=51)
[2024-10-20] MEDS: Ketorolac 15 MG/ML VIAL 7.5 MG IVP (20:31)
[2024-10-20] MEDS: Albuterol/Ipratropium 3 ML UPD VIAL UPD (20:32)
--- NOTE | 2024-10-20 20:53 | DI.RAD_ITS ---
Exam(s) XR CHEST 2V PA LATERAL EXAM: XR CHEST 2V PA LATERAL CLINICAL HISTORY: cough, fever, recent pna TECHNIQUE: 2D digital imaging was performed of the chest. Two images were obtained. PA and lateral views were obtained. COMPARISON: CR,XR XR CHEST 2V PA LATERAL from 10/17/2024 FINDINGS: MEDIASTINUM: Normal. HEART: Normal. PULMONARY VASCULATURE: Normal. LUNGS: There is linear atelectasis in the lungs bilaterally. No focal consolidating infiltrates are seen. PLEURAL SPACE: No pleural effusion or pneumothorax. BONE:Within normal limits for the patient's age. OTHER FINDINGS:Normal. IMPRESSION: There again seen findings of atelectasis. No focal consolidating infiltrates. DATA REPOSITORY: RADIATION DOSE DELIVERED:
--- NOTE | 2024-10-20 21:51 | DI.VRAD_ITS ---
PROCEDURE INFORMATION: Exam: XR Chest Exam date and time: 10/20/2024 8:52 PM Age: 39 years old Clinical indication: Cough and fever; Cough, fever, recent pna TECHNIQUE: Imaging protocol: Radiologic exam of the chest. Views: 2 views. COMPARISON: CR XR CHEST 2V PA LATERAL 10/17/2024 8:05 PM FINDINGS: Lungs: Bilateral lower lobe subsegmental atelectatic changes identified. Pleural spaces: Unremarkable. No pleural effusion. No pneumothorax. Heart/Mediastinum: Unremarkable. No cardiomegaly. Bones/joints: Unremarkable. IMPRESSION: Bilateral lower lobe subsegmental atelectatic changes. Dictated and Authenticated by: Saúl Singh MD. Orderin Jesus Long MD
[2024-10-20] MEDS: Cyclobenzaprine 10 MG TAB, 3 TABS/BTL PO (22:32)
--- NOTE | 2024-10-20 22:41 | W.ED.GENAD ---
Discharge Plan Disposition Patient Disposition: Home Condition: Stable Discharge Details Clinical Impression: Acute chest wall pain, Bronchitis Primary Care Provider: Rosangela Stiles ED Provider: Mercedes Lee Home Meds and New Rx's Prescriptions: Continued Arnuity Ellipta 200 mcg/actuation blister with device 1 inh inhalation DAILY topiramate [Topamax] 25 mg tablet 25 mg PO QHS Qty: 90 3RF Rx Instructions: Take in addition to 50 mg tablet for a total of 75 mg at bedtime. topiramate [Topamax] 50 mg tablet 50 mg PO QHS Qty: 90 3RF Rx Instructions: In addition to 25 mg tablet for total of 75 mg at bedtime magnesium oxide 500 mg capsule 500 mg PO QHS Qty: 90 3RF cyclobenzaprine 5 mg tablet 5 mg PO HS Qty: 90 3RF montelukast 10 mg Tablet 10 mg PO DAILY albuterol sulfate [ProAir HFA] 90 mcg/actuation Hfa Aerosol Inhaler 2 puff INHALATION 6XD PRN buspirone 10 mg tablet 30 mg PO BID Rx Instructions: 30mgs in am. 20 mgs in pm azithromycin 250 mg tablet 250 mg PO DAILY 4 Days Qty: 4 0RF Rx Instructions: start on day 2 of therapy promethazine 6.25 mg/5 mL syrup 12.5 mg PO Q6H PRN (Reason: cough) Qty: 120 0RF prednisone 20 mg tablet 40 mg PO DAILY 4 Days Qty: 8 0RF Discharge Instructions Instructions: Acute bronchitis, Bronchitis, Adult ED Additional Instructions: take motrin 600 mg every 8 hours with food take flexeril as needed for musculoskeletal pain afrin nasal spray as instructed on bottle humidifier in room please return with fever, chills, worsening pain, or should any new cocners arise complete your steroid and antibiotic take otc cough medication Referrals: Rosangela Stiles [Primary Care Provider] - 2 days HPI General Date/Time Provider Initiated Documentation: 10/20/24 19:13. HPI Narrative: The patient is a 39-year-old female with a history of pneumonia and migraine headaches who presents with chest pain and a persistent cough since being diagnosed with pneumonia several days prior to arrival. She reports that her pain has been worsening and constant since its onset. The pain intensifies with palpation, deep breathing, and coughing. She does not report any significant change in shortness of breath, calf pain or swelling, recent falls, surgeries, or long drives. She has been taking prednisone and albuterol. Related Data Home Medications ?Medication ?Instructions ?Recorded ?Confirmed albuterol sulfate 90 mcg/actuation 2 puff inhalation 6XD PRN 03/24/20 10/20/24 aerosol inhaler (ProAir HFA) montelukast 10 mg tablet 10 mg PO DAILY 03/24/20 10/20/24 cyclobenzaprine 5 mg tablet 5 mg PO HS #90 tabs 05/09/23 10/20/24 magnesium oxide 500 mg capsule 500 mg PO QHS #90 caps 05/09/23 10/20/24 buspirone 10 mg tablet 30 mg PO BID 10/18/23 10/20/24 fluticasone furoate 200 1 inh inhalation DAILY 04/09/24 10/20/24 mcg/actuation blister powder for inhalation (Arnuity Ellipta) topiramate 25 mg tablet (Topamax) 25 mg PO QHS #90 tabs 04/09/24 10/20/24 topiramate 50 mg tablet (Topamax) 50 mg PO QHS #90 tabs 09/10/24 10/20/24 azithromycin 250 mg tablet 250 mg PO DAILY 4 days #4 tabs 10/17/24 10/20/24 prednisone 20 mg tablet 40 mg (2 x 20 mg) PO DAILY 4 days 10/17/24 10/20/24 #8 tabs promethazine 6.25 mg/5 mL oral 12.5 mg (10 mL) PO Q6H PRN cough 10/17/24 10/20/24 syrup #120 mL Previous Rx's ?Medication ?Instructions ?Recorded cyclobenzaprine 5 mg tablet 5 mg PO HS #90 tabs 05/09/23 magnesium oxide 500 mg capsule 500 mg PO QHS #90 caps 05/09/23 topiramate 25 mg tablet (Topamax) 25 mg PO QHS #90 tabs 04/09/24 topiramate 50 mg tablet (Topamax) 50 mg PO QHS #90 tabs 09/10/24 azithromycin 250 mg tablet 250 mg PO DAILY 4 days #4 tabs 10/17/24 prednisone 20 mg tablet 40 mg (2 x 20 mg) PO DAILY 4 days 10/17/24 #8 tabs promethazine 6.25 mg/5 mL oral 12.5 mg (10 mL) PO Q6H PRN cough 10/17/24 syrup #120 mL Allergies Allergy/AdvReac Type Severity Reaction Status Date / Time amlodipine Allergy Unknown Other (See Verified 10/20/24 19:06 Comment) aspirin Allergy Unknown Other (See Verified 10/20/24 19:06 Comment) benzonatate (From Tessalon Allergy Unknown Other (See Verified 10/20/24 19:06 Jose) Comment) ciprofloxacin Allergy Unknown Other (See Verified 10/20/24 19:06 Comment) codeine Allergy Unknown Other (See Verified 10/20/24 19:06 Comment) grape Allergy Unknown Other (See Verified 10/20/24 19:06 Comment) losartan Allergy Unknown Other (See Verified 10/20/24 19:06 Comment) nickel Allergy Unknown Other (See Verified 10/20/24 19:06 Comment) orange Allergy Unknown Other (See Verified 10/20/24 19:06 Comment) oxycodone (From Tylox) Allergy Unknown Other (See Verified 10/20/24 19:06 Comment) Penicillins Allergy Unknown Other (See Verified 10/20/24 19:06 Comment) potassium Allergy Unknown Other (See Verified 10/20/24 19:06 Comment) Sulfa (Sulfonamide Allergy Unknown Other (See Verified 10/20/24 19:06 Antibiotics) Comment) acetaminophen (From Tylox) Allergy Other (See Verified 10/20/24 19:06 Comment) latex Allergy Other (See Verified 10/20/24 19:06 Comment) lysol Allergy Unknown Other (See Uncoded 10/20/24 19:06 Comment) turnips Allergy Unknown Other (See Uncoded 10/20/24 19:06 Comment) wool Allergy Other (See Uncoded 10/20/24 19:06 Comment) General Stated Complaint: Chest Pain MICHA: 3 Exam Narrative Exam Narrative: General Appearance: Patient is alert and oriented, no acute distress. Vital signs: Within normal limits. HEENT: Within normal limits. Respiratory: Lungs are clear to auscultation, no respiratory distress. Cardiovascular: Cardiac rate and rhythm are regular. Back, Musculoskeletal: There is reproducible chest wall tenderness. Extremities: No calf swelling or tenderness. Skin: Warm and dry, no rash. Neurological: Normal. Course Vital Signs Vital signs: Vital Signs Temperature 36.4 C L 10/20/24 19:02 Pulse 92 H 10/20/24 19:02 Respiratory Rate 22 10/20/24 19:02 Blood Pressure 188/127 H 10/20/24 19:02 Pulse Oximetry 94 10/20/24 19:02 Temperature 36.4 C L 10/20/24 19:02 Temperature Source Oral 10/20/24 19:02 Pulse 78 10/20/24 22:31 Pulse 86 10/20/24 20:46 Respiratory Rate 16 10/20/24 22:31 Respiratory Effort Normal, Non-Labored 10/20/24 19:42 Respiratory Depth Normal 10/20/24 19:42 Respiratory Pattern Normal 10/20/24 19:42 Blood Pressure 165/102 H 10/20/24 22:31 Blood Pressure Mean 120 10/20/24 22:15 Blood Pressure Position Sitting 10/20/24 19:02 Pulse Oximetry 94 10/20/24 22:31 Oxygen Delivery Method Room Air 10/20/24 19:02 Oxygen Flow Rate 0 10/20/24 19:02 Pain Level 10 10/20/24 19:42 Lab/Test Results Lab/Test Results: Laboratory Tests Range/Units 10/20/24 10/20/24 10/20/24 19:35 19:44 20:15 WBC (4.4-10.8) 10^3/uL 14.73 H RBC (3.93-5.22) 10^6/uL 4.82 Hgb (11.2-15.7) g/dL 14.6 Hct (36.0-46.0) % 44.0 MCV (80-95) fL 91 MCH (27.0-33.0) pg 30.3 MCHC (32.0-36.0) % 33.2 RDW (11.7-14.6) % 11.9 Plt Count (130-400) 10^3/uL 424 H MPV (8.0-11.0) fL 9.7 Immature Gran % % 1.8 Neutrophils % % 74.3 Lymphocytes % % 16.8 Monocytes % % 6.6 Eosinophils % % 0.1 Basophils % % 0.4 Nucleated RBC % (0.0-0.3) % 0.0 Absolute Neutrophils (1.2-6.7) 10^3/uL 10.94 H Absolute Lymphocytes (1.2-3.4) 10^3/uL 2.47 Absolute Monocytes (0.1-0.8) 10^3/uL 0.97 H Absolute Eosinophils (0.0-0.7) 10^3/uL 0.01 Absolute Basophils (0.0-0.2) 10^3/uL 0.06 D-Dimer (<500) ng/mlFEU 194 Sodium (136-145) mmol/L 139 Potassium (3.5-5.1) mmol/L 3.6 Chloride (98-107) mmol/L 105 Carbon Dioxide (21.0-32.0) mmol/L 26.7 Anion Gap (3-11) mmol/L 7.3 BUN (7-18) mg/dL 11 Creatinine (0.55-1.02) mg/dL 1.0 Est GFR (CKD-EPI 2020) (mL/min/1.73m2) 72.58 Glucose (74-106) mg/dL 165 H Calcium (8.5-10.1) mg/dL 9.5 Total Bilirubin (0.2-1.0) mg/dL 0.23 AST (15-37) U/L 11 L ALT (14-59) U/L 27 Alkaline Phosphatase (46-116) U/L 92 Troponin I (<or=51) ng/L < 4 Cancelled Total Protein (6.4-8.2) g/dL 7.4 Albumin (3.4-5.0) g/dL 3.5 Lipase (<78) U/L 35 Urine Color (Yellow) Yellow Urine Clarity (Clear) Clear Urine pH (5-8) 6.5 Ur Specific [place] (1.005-1.025) 1.025 Urine Protein (Neg-Trace) mg/dL Negative Urine Ketones (Negative) mg/dL Negative Urine Blood (Negative) Trace-intact H Urine Nitrite (Negative) Negative Urine Bilirubin (Negative) Negative Urine Urobilinogen (Up to 0.2) mg/dL 0.2 Ur Leukocyte Esterase (Negative) Negative Urine RBC (0-2) HPF 0-2 Urine WBC (0-5) HPF Negative Ur Epithelial Cells (Negative) HPF Many Urine Crystals (Negative) HPF Negative Urine Bacteria (Negative) HPF Few Urine Mucus (Negative) Negative Ur Culture Indicated? No Urine Glucose (Negative) mg/dL Negative Range/Units 10/20/24 22:15 WBC (4.4-10.8) 10^3/uL RBC (3.93-5.22) 10^6/uL Hgb (11.2-15.7) g/dL Hct (36.0-46.0) % MCV (80-95) fL MCH (27.0-33.0) pg MCHC (32.0-36.0) % RDW (11.7-14.6) % Plt Count (130-400) 10^3/uL MPV (8.0-11.0) fL Immature Gran % % Neutrophils % % Lymphocytes % % Monocytes % % Eosinophils % % Basophils % % Nucleated RBC % (0.0-0.3) % Absolute Neutrophils (1.2-6.7) 10^3/uL Absolute Lymphocytes (1.2-3.4) 10^3/uL Absolute Monocytes (0.1-0.8) 10^3/uL Absolute Eosinophils (0.0-0.7) 10^3/uL Absolute Basophils (0.0-0.2) 10^3/uL D-Dimer (<500) ng/mlFEU Sodium (136-145) mmol/L Potassium (3.5-5.1) mmol/L Chloride (98-107) mmol/L Carbon Dioxide (21.0-32.0) mmol/L Anion Gap (3-11) mmol/L BUN (7-18) mg/dL Creatinine (0.55-1.02) mg/dL Est GFR (CKD-EPI 2020) (mL/min/1.73m2) Glucose (74-106) mg/dL Calcium (8.5-10.1) mg/dL Total Bilirubin (0.2-1.0) mg/dL AST (15-37) U/L ALT (14-59) U/L Alkaline Phosphatase (46-116) U/L Troponin I (<or=51) ng/L Cancelled Total Protein (6.4-8.2) g/dL Albumin (3.4-5.0) g/dL Lipase (<78) U/L Urine Color (Yellow) Urine Clarity (Clear) Urine pH (5-8) Ur Specific [place] (1.005-1.025) Urine Protein (Neg-Trace) mg/dL Urine Ketones (Negative) mg/dL Urine Blood (Negative) Urine Nitrite (Negative) Urine Bilirubin (Negative) Urine Urobilinogen (Up to 0.2) mg/dL Ur Leukocyte Esterase (Negative) Urine RBC (0-2) HPF Urine WBC (0-5) HPF Ur Epithelial Cells (Negative) HPF Urine Crystals (Negative) HPF Urine Bacteria (Negative) HPF Urine Mucus (Negative) Ur Culture Indicated? Urine Glucose (Negative) mg/dL Medical Decision Making Laboratory Studies Mild leukocytosis at 14,000. D-dimer 194. ALT within normal limits. Two troponins are negative. Urinalysis does not show evidence of acute abnormality. Imaging Chest x-ray per radiology interpretation by review does not show evidence of acute abnormality. Initial Assessment: 39-year-old female with history of pneumonia and migraine headaches presents with chest pain and persistent cough. Pain worsened with palpation and deep breathing, no significant change in shortness of breath, no calf pain or swelling. Differential Diagnosis: - Muscular pain: Reproducible chest wall tenderness, likely from coughing. Plan: Prescribe Flexeril, encourage Motrin use at home. - Cardiac etiology: Clinical suspicion, but two negative troponins and negative D-dimer. Plan: No CAT scan ordered. ED Course: - Mild leukocytosis at 14,000, likely prednisone-induced. - D-dimer 194. - ALT within normal limits. - Two negative troponins. - Urinalysis: No acute abnormality. - Chest x-ray: No acute abnormality, read by radiology. - Prescription for Flexeril provided. - Encouraged Motrin use at home. - Patient to complete courses of ibuprofen, prednisone, and azithromycin. - Reevaluation scheduled for 1 to 2 days. Final Assessment: Patient presents with chest pain likely of muscular origin due to coughing, with no evidence of cardiac etiology. Treatment includes Flexeril and Motrin, with follow-up in 1 to 2 days. Clinical Impression: - Chest pain - Muscular pain Disposition: - Follow-Up: Reevaluation in 1 to 2 days. MDM Components Evaluation: - Number of Differential Diagnoses or Management Options: Muscular pain, Cardiac etiology - Amount and Complexity of Data Reviewed: Leukocytosis, D-dimer, ALT, troponins, urinalysis, chest x-ray - Risk of Complication and Morbidity or Mortality: Low risk given negative cardiac markers and reproducible chest wall tenderness. Quality:[facility] Health Related Social Needs: No Data to Display PFSH All Active Problems (Updated 10/20/24 @ 22:27 by ROSI Elaine) Bronchitis (Acute) Acute chest wall pain (Acute) Pneumonia (Acute) Migraine headache without aura (Acute) Left carpal tunnel syndrome (Acute) Frequent headaches (Acute) Medical History Chronic back pain Fibromyalgia Anxiety Depression PTSD (post-traumatic stress disorder) Vertigo Asthma Hypertension Hx of migraines Social History Smoking/Tobacco Use Status: Never Smoking risk assessment performed?: Yes Alcohol Intake: never Drug use: Never Substance use type: does not use Do you feel safe at home: Yes Do you feel safe in your relationship?: Yes
== END 2024-10-20 22:34 | disposition home or self-care (01) ==
PROVIDERS: Emergency Provider Physician Assistant; PCP Nurse Practitioner Family
DX: J20.9 Acute bronchitis, unspecified (principal); R07.89 Other chest pain
CPT/HCPCS: 80053; 83690; 93005; 96374; 99285; 71046; 81003; 81015; 84484; 85025; 85379; 93010; 99284; J1885; J7620

== ENCOUNTER 2024-11-03 21:35 | Outpatient (REF) | payer MEDICAID, SELFPAY ==
[2024-11-03 22:10] LABS: ALT 29 U/L (14-59); AST 17 U/L (15-37); Albumin 3.9 g/dL (3.4-5.0); Alkaline Phosphatase 86 U/L (46-116); Anion Gap 12.4 mmol/L (3-11); BUN 17 mg/dL (7-18); Bilirubin, Total 0.36 mg/dL (0.2-1.0); CO2 23.6 mmol/L (21.0-32.0); CREATININE 0.7 mg/dL (0.55-1.02); Calcium 9.7 mg/dL (8.5-10.1); Chloride 106 mmol/L (98-107); Estimated GFR 111.36 (mL/min/1.73m2); Glucose 97 mg/dL (74-106); Potassium 4.5 mmol/L (3.5-5.1); Sodium 142 mmol/L (136-145); Total Protein 7.6 g/dL (6.4-8.2)
[2024-11-06 14:19] LABS: Bartonella Henselae IgG <1:128 titer (<1:128); Bartonella Henselae IgM <1:20 titer (<1:20); Bartonella Quintana IgG <1:128 titer (<1:128); Bartonella Quintana IgM <1:20 titer (<1:20)
== END 2024-11-03 21:36 | disposition home or self-care (01) ==
LOC: LBN 21:35
PROVIDERS: PCP Nurse Practitioner Family; Visit Provider Nurse Practitioner Family
DX: W55.03XA Scratched by cat, initial encounter (principal)
CPT/HCPCS: 80053; 86611

== ENCOUNTER 2024-11-12 19:31 | Emergency (ER) | payer MEDICAID, SELFPAY ==
[2024-11-12 19:36] VITALS: BP 162/105; PULSE 94; RESP 15; TEMP 36.5; O2SAT 96
[2024-11-12 19:39] VITALS: BP 162/105; PULSE 94; RESP 15; TEMP 36.5; O2SAT 96
[2024-11-12] MEDS: Balanced Salt Solution 15 ML BTL OP (19:54)
[2024-11-12] MEDS: Fluorescein STRIPS 100/BOX 1 MG OP (19:55)
--- NOTE | 2024-11-12 20:06 | W.ED.GENAD ---
Discharge Plan Disposition Patient Disposition: Home Condition: Stable Discharge Details Clinical Impression: Corneal irritation of left eye Primary Care Provider: Rosangela Stiles ED Provider: Una Singh Home Meds and New Rx's Prescriptions: No Action Arnuity Ellipta 200 mcg/actuation blister with device 1 inh inhalation DAILY topiramate [Topamax] 25 mg tablet 25 mg PO QHS Qty: 90 3RF Rx Instructions: Take in addition to 50 mg tablet for a total of 75 mg at bedtime. topiramate [Topamax] 50 mg tablet 50 mg PO QHS Qty: 90 3RF Rx Instructions: In addition to 25 mg tablet for total of 75 mg at bedtime magnesium oxide 500 mg capsule 500 mg PO QHS Qty: 90 3RF cyclobenzaprine 5 mg tablet 5 mg PO HS Qty: 90 3RF montelukast 10 mg Tablet 10 mg PO DAILY albuterol sulfate [ProAir HFA] 90 mcg/actuation Hfa Aerosol Inhaler 2 puff INHALATION 6XD PRN buspirone 10 mg tablet 30 mg PO BID Rx Instructions: 30mgs in am. 20 mgs in pm promethazine 6.25 mg/5 mL syrup 12.5 mg PO Q6H PRN (Reason: cough) Qty: 120 0RF Discharge Instructions Instructions: How to Care for Your Eyes Additional Instructions: At this time no foreign body visualized or corneal abrasion of your left eye. Please stop the eyedrops and follow-up with your PCP or towel hemmer if any continued symptoms. Please continue taking the oral antibiotics as previously prescribed. You may use the saline drops as needed once a day. Follow up with primary care provider in 3-5 days. Return to ED sooner if any worsening or concerns. Please take Tylenol or Ibuprofen with food every 4-6 hours as needed for pain and swelling. Thank you for allowing us to care for you today. Referrals: [facility] [Outside] - Return if symptoms worsen Rosangela Stiles [Primary Care Provider] - Return if symptoms worsen HPI General Mode of arrival: ambulatory. Date/Time Provider Initiated Documentation: 11/12/24 19:32. Limitations to Documentation: no limitations. Information obtained by: patient, RN notes reviewed and old records reviewed. HPI Narrative: 39-year-old female presents to the ER with a chief complaint of left eye irritation after being on polymyxin eyedrops for the last 7 days. Patient reports that she is also taking doxycycline for a cat scratch to her left outer eyelid. The cat scratch is getting better. She reports the last 2 days she has had some increased irritation and foreign body sensation to her left eye. Her cornea is injected, she does have some increased tearing. Other past medical history include fibromyalgia anxiety depression PTSD asthma hypertension history of migraines, she does have multiple allergies including Cipro penicillin and sulfa and latex. Related Data Home Medications ?Medication ?Instructions ?Recorded ?Confirmed albuterol sulfate 90 mcg/actuation 2 puff inhalation 6XD PRN 03/24/20 11/12/24 aerosol inhaler (ProAir HFA) montelukast 10 mg tablet 10 mg PO DAILY 03/24/20 11/12/24 cyclobenzaprine 5 mg tablet 5 mg PO HS #90 tabs 05/09/23 11/12/24 magnesium oxide 500 mg capsule 500 mg PO QHS #90 caps 05/09/23 11/12/24 buspirone 10 mg tablet 30 mg PO BID 10/18/23 11/12/24 fluticasone furoate 200 1 inh inhalation DAILY 04/09/24 11/12/24 mcg/actuation blister powder for inhalation (Arnuity Ellipta) topiramate 25 mg tablet (Topamax) 25 mg PO QHS #90 tabs 04/09/24 11/12/24 topiramate 50 mg tablet (Topamax) 50 mg PO QHS #90 tabs 09/10/24 11/12/24 promethazine 6.25 mg/5 mL oral 12.5 mg (10 mL) PO Q6H PRN cough 10/17/24 11/12/24 syrup #120 mL Previous Rx's ?Medication ?Instructions ?Recorded cyclobenzaprine 5 mg tablet 5 mg PO HS #90 tabs 05/09/23 magnesium oxide 500 mg capsule 500 mg PO QHS #90 caps 05/09/23 topiramate 25 mg tablet (Topamax) 25 mg PO QHS #90 tabs 04/09/24 topiramate 50 mg tablet (Topamax) 50 mg PO QHS #90 tabs 09/10/24 promethazine 6.25 mg/5 mL oral 12.5 mg (10 mL) PO Q6H PRN cough 10/17/24 syrup #120 mL Allergies Allergy/AdvReac Type Severity Reaction Status Date / Time amlodipine Allergy Unknown Other (See Verified 11/12/24 19:40 Comment) aspirin Allergy Unknown Other (See Verified 11/12/24 19:40 Comment) benzonatate (From Tessalon Allergy Unknown Other (See Verified 11/12/24 19:40 Perles) Comment) ciprofloxacin Allergy Unknown Other (See Verified 11/12/24 19:40 Comment) codeine Allergy Unknown Other (See Verified 11/12/24 19:40 Comment) grape Allergy Unknown Other (See Verified 11/12/24 19:40 Comment) losartan Allergy Unknown Other (See Verified 11/12/24 19:40 Comment) nickel Allergy Unknown Other (See Verified 11/12/24 19:40 Comment) orange Allergy Unknown Other (See Verified 11/12/24 19:40 Comment) oxycodone (From Tylox) Allergy Unknown Other (See Verified 11/12/24 19:40 Comment) Penicillins Allergy Unknown Other (See Verified 11/12/24 19:40 Comment) potassium Allergy Unknown Other (See Verified 11/12/24 19:40 Comment) Sulfa (Sulfonamide Allergy Unknown Other (See Verified 11/12/24 19:40 Antibiotics) Comment) acetaminophen (From Tylox) Allergy Other (See Verified 11/12/24 19:40 Comment) latex Allergy Other (See Verified 11/12/24 19:40 Comment) lysol Allergy Unknown Other (See Uncoded 11/12/24 19:40 Comment) turnips Allergy Unknown Other (See Uncoded 11/12/24 19:40 Comment) wool Allergy Other (See Uncoded 11/12/24 19:40 Comment) General Stated Complaint: EyeProblem MICHA: 4 Review of Systems All systems reviewed & are unremarkable except as noted in HPI and below Eyes Eyes: Reports as per HPI, Reports irritation and Reports itchy eyes Allergic/Immunologic Allergic/Immunologic: Reports itchy eyes Exam Eyes General: appearance normal, both eyes and all related structures Alignment and Position: alignment normal Periorbital: periorbital findings normal Eyelids: eyelid abnormality left upper eyelid (Healing abrasion) Conjunctivae: conjunctival abnormality left conjunctival injection diffuse Cornea: corneas normal and fluorescein used (No foreign body visualized no uptake and dye) Pupils: PERRL EOM: EOM intact bilaterally Direct ophthalmoscopy: normal light reflex Course Vital Signs Vital signs: Vital Signs Temperature 36.5 C 11/12/24 19:36 Pulse 94 H 11/12/24 19:36 Respiratory Rate 15 11/12/24 19:36 Blood Pressure 162/105 H 11/12/24 19:36 Pulse Oximetry 96 11/12/24 19:36 Temperature 36.5 C 11/12/24 19:39 Pulse 94 H 11/12/24 19:39 Respiratory Rate 15 11/12/24 19:39 Blood Pressure 162/105 H 11/12/24 19:39 Blood Pressure Position Sitting 11/12/24 19:39 Pulse Oximetry 96 11/12/24 19:39 Oxygen Delivery Method Room Air 11/12/24 19:39 Oxygen Flow Rate 0 11/12/24 19:39 Medical Decision Making 39-year-old female presents to the ER with a chief complaint of left eye irritation after being on polymyxin eyedrops for the last 7 days. Patient reports that she is also taking doxycycline for a cat scratch to her left outer eyelid. The cat scratch is getting better. She reports the last 2 days she has had some increased irritation and foreign body sensation to her left eye. Her cornea is injected, she does have some increased tearing. Other past medical history include fibromyalgia anxiety depression PTSD asthma hypertension history of migraines, she does have multiple allergies including Cipro penicillin and sulfa and latex. At this time no foreign body visualized, no corneal abrasion or uptake and dye. I did instruct patient to stop the eyedrops as she only has a couple of days left. Did encourage her to continue taking the oral antibiotics and to follow-up with her PCP if any worsening or her towel hemmer. She verbalized understanding. This text was generated using [employer] system, please disregard any oddities of phrase or misspellings. Quality:SDOH Health Related Social Needs: No Data to Display PFSH All Active Problems (Updated 11/12/24 @ 20:11 by Una Singh NP) Corneal irritation of left eye (Acute) Bronchitis (Acute) Acute chest wall pain (Acute) Pneumonia (Acute) Migraine headache without aura (Acute) Left carpal tunnel syndrome (Acute) Frequent headaches (Acute) Medical History Chronic back pain Fibromyalgia Anxiety Depression PTSD (post-traumatic stress disorder) Vertigo Asthma Hypertension Hx of migraines Social History Smoking/Tobacco Use Status: Never Smoking risk assessment performed?: Yes Alcohol Intake: never Drug use: Never Substance use type: does not use Do you feel safe at home: Yes Do you feel safe in your relationship?: Yes
[2024-11-12 20:34] VITALS: BP 162/105; PULSE 94; RESP 15; TEMP 36.5; O2SAT 96
== END 2024-11-12 20:35 | disposition home or self-care (01) ==
PROVIDERS: Emergency Provider Registered Nurse Emergency; PCP Nurse Practitioner Family
DX: S05.02XA Injury of conjunctiva and corneal abrasion without foreign body, left eye, initial encounter (principal); X58.XXXA Exposure to other specified factors, initial encounter
CPT/HCPCS: 99283

== ENCOUNTER 2024-12-19 00:11 | Outpatient (CLI) | payer MEDICAID, SELFPAY ==
--- NOTE | 2024-12-19 | DI.MAMMO_ITS ---
Exam(s) MAMMO SCREENING EXAM: MAMMO SCREENING CLINICAL HISTORY: Z12.31 Screening. TECHNIQUE: Bilateral full field digital CC and MLO mammographic images were obtained with 3D tomosyn thesis and utilizing computer aided detection (CAD). COMPARISON: None. This is a baseline mammogram on this 39-year-old. FINDINGS: There benign calcified oil cysts in both breasts. The largest of these is in the lateral aspect of t he right breast and measures 8 mm. There are no spiculated masses nor malignant appearing microcalcification groups. There is no significant architectural distortion nor skin thickening-retraction. IMPRESSION: No radiographic evidence of malignancy. BI-RADS Category 2 - Benign Findings Breast Density - Category B - Scattered areas of fibroglandular density Breast density Category C or D implies that the patient has dense breast tissue. Dense breast tissue can make it harder to find cancer on a mammogram. Dense breast tissue is also associated with an incr eased risk of breast cancer. This information about the result of the mammogram report was provided to the patient to raise their awareness. Use this report when you speak with the patient about their risks for breast cancer, which includes their family history. At that time, you may recommend additional screening tests (Ultrasoun d or MRI) as these tests may add significant information. A negative radiographic report should not delay biopsy if a dominant or clinically suspicious mass is present. Up to ten percent of cancers are not identified on mammography. A negative report may reinforce clinical impression. Adenosis and dense breasts may obscure an underlying neoplasm. False positive reports average 6 to 10%. Patient will receive a letter notifying them of these results.
== END 2024-12-19 00:31 ==
LOC: DI 00:11
PROVIDERS: PCP Nurse Practitioner Family; Visit Provider Nurse Practitioner Family
DX: Z12.31 Encounter for screening mammogram for malignant neoplasm of breast (principal); R92.323 Mammographic fibroglandular density, bilateral breasts; D24.1 Benign neoplasm of right breast; D24.2 Benign neoplasm of left breast
CPT/HCPCS: 77063; 77067

== ENCOUNTER 2025-02-27 14:04 | Outpatient (REF) | payer MEDICAID, SELFPAY ==
[2025-02-27 22:22] LABS: Vitamin B12 396 pg/mL (193-986); Vitamin D 25 Total 34 ng/mL (30-100)
[2025-03-02 10:28] LABS: Folate 8.6 ng/mL (See Note)
== END 2025-02-27 14:05 | disposition home or self-care (01) ==
LOC: NCHCN 14:04
PROVIDERS: PCP Nurse Practitioner Family; Visit Provider Family Medicine
DX: R20.0 Anesthesia of skin (principal)
CPT/HCPCS: 82306; 82607; 82746

== ENCOUNTER 2025-05-17 19:40 | Emergency (ER) | payer MEDICAID, SELFPAY ==
[2025-05-17] VITALS (13 sets, daily range): BP systolic 148–171; BP diastolic 90–110; PULSE 65–105; RESP 16–30; TEMP 36.9; O2SAT 91–99
--- NOTE | 2025-05-17 19:30 | RT.EKG_ITS ---
APPROVED REPORT Exam: Resting ECG Reason for Exam: stroke like sx Patient Location: E HR:86 bpm ECG Measurements Heart Rate 86 AXIS VT 151 P 48 QRSd 106 QRS -19 QT 399 T 40 QTc 478 Conclusion Sinus rhythm...normal P axis, V-rate 60- 99 Consider anterior infarct...Q >30mS in V2-V5
--- NOTE | 2025-05-17 19:45 | DI.CT_ITS ---
Exam(s) CT BRAIN NECK CTA EXAM: CT BRAIN NECK CTA CLINICAL HISTORY: left face and arm nubmness. TECHNIQUE: Imaging Protocol: Axial CT angiography was performed with multi- slice acquisition and multi-planar and/or 3D reconstructions. CONTRAST MATERIAL: Intravenous: Omnipaque 350 contrast volume:70 mL COMPARISON: CT CT BRAIN NECK CTA from 12/01/2021 FINDINGS: CT Head W/O and W: Ventricles and Extra axial spaces: Normal in size and morphology for the patient's age. Hemorrhage: None. Cerebral parenchyma: There is no evidence of an acute territorial infarct or mass effect. Midline shift: None. Brainstem/Cerebellum: Normal. Calvarium: Normal. Visualized Paranasal sinuses/Mastoids: Clear. Soft Tissues: Unremarkable. Enhancement: Unremarkable. CTA Neck W: Common Carotid: Right: No dissection, occlusion or significant stenosis. Left: No dissection, occlusion or significant stenosis. External Carotid: Right: No occlusion or significant stenosis. Left: No occlusion or significant stenosis. Internal Carotid: Right: No dissection, occlusion or significant stenosis. Left: No dissection, occlusion or significant stenosis. Vertebral Artery: Right: No dissection, occlusion or significant stenosis. Left: No dissection, occlusion or significant stenosis. Lung Apices: Normal. Bones: Within normal limits for the patient's age. Soft Tissues: Normal. Thyroid gland: Unremarkable. CTA Brain W: Internal Carotid Arteries: Normal. Anterior Cerebral Arteries: Right: No aneurysm, occlusion or significant stenosis. Left: No aneurysm, occlusion or significant stenosis. Middle Cerebral Arteries: Right: No aneurysm, occlusion or significant stenosis. Left: No aneurysm, occlusion or significant stenosis. Posterior Cerebral Arteries: Right: No aneurysm, occlusion or significant stenosis. Left: No aneurysm, occlusion or significant stenosis. Vertebral Arteries: Right: No aneurysm, occlusion or significant stenosis. Left: No aneurysm, occlusion or significant stenosis. Basilar Artery: No aneurysm, occlusion or significant stenosis. IMPRESSION: 1. No large vessel occlusion or significant stenosis on the CT angiography of the head. 2. No acute intracranial process. 3. No occlusion or significant stenosis on the CT angiography of the neck. 4. The preliminary [facility] report was reviewed. RADIATION DOSE DELIVERED: 2,208.54mGy.cm Total DLP DATA REPOSITORY: All CT scans at this facility are submitted to the National Radiology Data Registry (NRDR) Dose Index Registry (DIR) with the [employer] ([employer]). RADIATION OPTIMIZATION: All CT scans at this facility use at least one of these dose optimization techniques: automated exposure control; mA and/or kV adjustment per patient size (includes targeted exams where dose is matched to clinical indication); or iterative reconstruction.
--- NOTE | 2025-05-17 19:53 | W.ED.GENAD ---
Discharge Plan Disposition Patient Disposition: Home Condition: Stable Discharge Details Clinical Impression: Headache, migraine, Facial numbness Primary Care Provider: Rosangela Stiles ED Provider: Dariusz Fung Home Meds and New Rx's Prescriptions: Continued Arnuity Ellipta 200 mcg/actuation blister with device 1 inh inhalation DAILY cyclobenzaprine 5 mg tablet 5 mg PO HS Qty: 90 3RF magnesium oxide 500 mg capsule 500 mg PO QHS Qty: 90 3RF topiramate [Topamax] 50 mg tablet 50 mg PO QHS Qty: 90 3RF Rx Instructions: In addition to 25 mg tablet for total of 75 mg at bedtime topiramate 25 mg tablet See Rx Instructions .ROUTE .COMPLEX Qty: 90 0RF Dose Instruction: TAKE ONE TABLET BY MOUTH AT BEDTIME Rx Instructions: TAKE ONE TABLET BY MOUTH AT BEDTIME montelukast 10 mg Tablet 10 mg PO DAILY albuterol sulfate [ProAir HFA] 90 mcg/actuation Hfa Aerosol Inhaler 2 puff INHALATION 6XD PRN buspirone 10 mg tablet 30 mg PO BID Rx Instructions: 30mgs in am. 20 mgs in pm promethazine 6.25 mg/5 mL syrup 12.5 mg PO Q6H PRN (Reason: cough) Qty: 120 0RF Discharge Instructions Additional Instructions: Your imaging and CAT scan did not show any concerning findings at this time. I suspect this was a complex migraine. Follow-up with your primary care provider within 1 to 2 weeks. If you feel significantly more ill or have new symptoms such as chest pain, difficulty breathing or fevers return to emergency department for reevaluation. HPI General Mode of arrival: ambulatory. Date/Time Provider Initiated Documentation: 05/17/25 19:42. Limitations to Documentation: no limitations. Information obtained by: patient. History of Present Illness 39 year old F presents to the emergency department with the chief complaint of dmitriy, face and left arm numbness, described as moderate, Quality is described as constant, and is localized to the face, left and upper extremity. and it has been constant. No relieving factors improve symptom(s), No exacerbating factors reported . Patient notes denies chest pain and fever/chills. Patient did receive the following treatments prior to arrival, none Related Data Home Medications ?Medication ?Instructions ?Recorded ?Confirmed albuterol sulfate 90 mcg/actuation 2 puff inhalation 6XD PRN 03/24/20 05/17/25 aerosol inhaler (ProAir HFA) montelukast 10 mg tablet 10 mg PO DAILY 03/24/20 05/17/25 buspirone 10 mg tablet 30 mg PO BID 10/18/23 05/17/25 fluticasone furoate 200 1 inh inhalation DAILY 04/09/24 05/17/25 mcg/actuation blister powder for inhalation (Arnuity Ellipta) promethazine 6.25 mg/5 mL oral 12.5 mg (10 mL) PO Q6H PRN cough 10/17/24 05/17/25 syrup #120 mL topiramate 25 mg tablet See Rx Instructions .Route 03/09/25 05/17/25 .COMPLEX #90 tabs cyclobenzaprine 5 mg tablet 5 mg PO HS #90 tabs 05/13/25 05/17/25 magnesium oxide 500 mg capsule 500 mg PO QHS #90 caps 05/13/25 05/17/25 topiramate 50 mg tablet (Topamax) 50 mg PO QHS #90 tabs 05/13/25 05/17/25 Previous Rx's ?Medication ?Instructions ?Recorded promethazine 6.25 mg/5 mL oral 12.5 mg (10 mL) PO Q6H PRN cough 10/17/24 syrup #120 mL topiramate 25 mg tablet See Rx Instructions .Route 03/09/25 .COMPLEX #90 tabs cyclobenzaprine 5 mg tablet 5 mg PO HS #90 tabs 05/13/25 magnesium oxide 500 mg capsule 500 mg PO QHS #90 caps 05/13/25 topiramate 50 mg tablet (Topamax) 50 mg PO QHS #90 tabs 05/13/25 Allergies Allergy/AdvReac Type Severity Reaction Status Date / Time amlodipine Allergy Unknown Other (See Verified 05/17/25 19:46 Comment) aspirin Allergy Unknown Other (See Verified 05/17/25 19:46 Comment) benzonatate (From Tessalon Allergy Unknown Other (See Verified 05/17/25 19:46 Jose) Comment) ciprofloxacin Allergy Unknown Other (See Verified 05/17/25 19:46 Comment) codeine Allergy Unknown Other (See Verified 05/17/25 19:46 Comment) grape Allergy Unknown Other (See Verified 05/17/25 19:46 Comment) losartan Allergy Unknown Other (See Verified 05/17/25 19:46 Comment) nickel Allergy Unknown Other (See Verified 05/17/25 19:46 Comment) orange Allergy Unknown Other (See Verified 05/17/25 19:46 Comment) oxycodone (From Tylox) Allergy Unknown Other (See Verified 05/17/25 19:46 Comment) Penicillins Allergy Unknown Other (See Verified 05/17/25 19:46 Comment) potassium Allergy Unknown Other (See Verified 05/17/25 19:46 Comment) Sulfa (Sulfonamide Allergy Unknown Other (See Verified 05/17/25 19:46 Antibiotics) Comment) acetaminophen (From Tylox) Allergy Other (See Verified 05/17/25 19:46 Comment) latex Allergy Other (See Verified 05/17/25 19:46 Comment) lysol Allergy Unknown Other (See Uncoded 05/17/25 19:46 Comment) turnips Allergy Unknown Other (See Uncoded 05/17/25 19:46 Comment) wool Allergy Other (See Uncoded 05/17/25 19:46 Comment) General Stated Complaint: CVA/TIA MICHA: 3 Review of Systems All systems reviewed & are unremarkable except as noted in HPI and below Constitutional Constitutional: Denies chills, Denies fever(s) and Denies weakness Eyes Eyes: Denies loss of vision Cardiovascular Cardiovascular: Denies chest pain and Denies dyspnea Respiratory Respiratory: Denies cough and Denies dyspnea Gastrointestinal Gastrointestinal: Denies abdominal pain, Denies nausea and Denies vomiting Musculoskeletal Musculoskeletal: Reports numbness Integumentary/Breasts Skin/Breast: Denies rash Neurologic Neurologic: Reports abnormal speech, Denies loss of vision, Reports numbness and Denies weakness Psychiatric Psychiatric: Denies depression Exam Const General: no acute distress Orientation: alert [facility] Head: normal to inspection Ears: external ears normal General nose exam: external nose normal Mouth: moist mucous membranes Eyes General: appearance normal, both eyes and all related structures Neck Neck: normal visual inspection Resp Effort & Inspection: normal respiratory effort and able to speak in complete sentences Cardio Rate: regular rate Skin General skin exam: no rashes or lesions noted Neuro General: patient alert, patient oriented x3 and no focal motor deficits Extrem General: normal to inspection Psych Mental Status: mental status grossly normal Course Vital Signs Vital signs: Vital Signs Temperature 36.9 C 05/17/25 19:43 Pulse 103 H 05/17/25 19:43 Respiratory Rate 20 05/17/25 19:43 Blood Pressure 165/96 H 05/17/25 19:43 Pulse Oximetry 99 05/17/25 19:43 Temperature 36.9 C 05/17/25 19:43 Pulse 103 H 05/17/25 19:43 Respiratory Rate 20 05/17/25 19:43 Blood Pressure 165/96 H 05/17/25 19:43 Pulse Oximetry 99 05/17/25 19:43 Pain Level 0 05/17/25 19:43 Medical Decision Making 39-year-old female with a history of migraines, fibromyalgia, PTSD who comes in with her left arm, face feeling numb and also her tongue feeling numb and point to the left. She is unsure what time it started but thinks it started this afternoon. She denies any fevers, chills. She does have a headache she feels is similar to her prior migraines. She is moving all extremities equally, no drift, oriented x 4. Left tongue is pointed to the left. She has no cranial nerve deficits. She is able to move her tongue all the way to the right when I ask her to. NIH on my exam is 0. Given her complaints of numbness I will proceed with CBC CMP and CTA that my suspicion for CVA is low. I suspect this could be a complex migraine, will treat with Compazine and Benadryl and reassess. Labs and imaging unremarkable and her symptoms resolved with Compazine and Benadryl show I suspect this could have been a complex migraine. She still has an NIH of 0. I feel she is stable for discharge and can follow-up with her PCP, return precautions given. Differential Diagnosis Differential Diagnosis: Complex migraine, TIA, CVA, electrolyte abnormality Medical Records Medical records reviewed: Yes I reviewed the patient's medical records. Lab Data Lab results reviewed: Yes I reviewed the patient's lab results. ECG Data Attestation: I personally reviewed and interpreted this ECG (s) as follows: Prior ECG tracings: available for review Interpretation: Sinus rhythm, rate of 86, no STEMI PFSH All Active Problems (Updated 05/17/25 @ 21:20 by Dariusz Fung MD) Facial numbness (Acute) Headache, migraine (Chronic) Migraine headache without aura (Acute) Left carpal tunnel syndrome (Acute) Frequent headaches (Acute) Medical History Chronic back pain Fibromyalgia Anxiety Depression PTSD (post-traumatic stress disorder) Vertigo Asthma Hypertension Hx of migraines Social History Smoking/Tobacco Use Status: Never Smoking risk assessment performed?: Yes Alcohol Intake: never Drug use: Never Substance use type: does not use Do you feel safe at home: Yes Do you feel safe in your relationship?: Yes
[2025-05-17] MEDS: diphenhydrAMINE 50 MG/ML VIAL 25 MG IVP (19:57)
[2025-05-17] MEDS: Prochlorperazine 10 MG/2 ML VIAL IVP (19:57)
[2025-05-17] MEDS: Omnipaque 350 MG/ML 100 ML BTL IJ (19:58)
[2025-05-17 19:59] LABS: Abs Immature Grans 0.04 10^3/uL (0.0-0.06); HCT 43.5 % (36.0-46.0); HGB 15.0 g/dL (11.2-15.7); Immature Grans % 0.4 %; MCH 30.5 pg (27.0-33.0); MCHC 34.5 % (32.0-36.0); MCV 89 fL (80-95); MPV 10.1 fL (8.0-11.0); Platelet Count 294 10^3/uL (130-400); RBC 4.91 10^6/uL (3.93-5.22); RDW 11.8 % (11.7-14.6); RDW-SD 38.0 fL; WBC 9.42 10^3/uL (4.4-10.8)
[2025-05-17] MEDS: Normal Saline Flush 10 ML SYR IVP (19:59)
[2025-05-17] MEDS: Normal Saline - Diluent 50 ML VIAL IJ (19:59)
[2025-05-17 20:17] LABS: ALT 34 U/L (14-59); AST 21 U/L (15-37); Albumin 3.8 g/dL (3.4-5.0); Alkaline Phosphatase 100 U/L (46-116); Anion Gap 11.9 mmol/L (3-11); BUN 9 mg/dL (7-18); Bilirubin, Total 0.3 mg/dL (0.2-1.0); CO2 24.1 mmol/L (21.0-32.0); Calcium 9.0 mg/dL (8.5-10.1); Chloride 102 mmol/L (98-107); Estimated GFR 82.37 (mL/min/1.73m2); Glucose 126 mg/dL (74-106); Magnesium 1.9 mg/dL (1.8-2.4); Potassium 3.3 mmol/L (3.5-5.1); Sodium 138 mmol/L (136-145); Total Protein 7.7 g/dL (6.4-8.2)
--- NOTE | 2025-05-17 21:00 | DI.[facility]_ITS ---
PROCEDURE INFORMATION: Exam: CTA Head Without And With Contrast, Arteriography Exam date and time: 05/17/2025 8:05 PM Age: 39 years old Clinical indication: Stroke-like symptoms; Left upper extremity numbness/paresthesia; Additional info: Left face and arm nubmness TECHNIQUE: Imaging protocol: Computed tomographic angiography of the head without and with contrast. Exam focused on the arteries. 3D rendering (Not supervised by radiologist): MIP and/or 3D reconstructed images were created by the technologist. Radiation optimization: All CT scans at this facility use at least one of these dose optimization techniques: automated exposure control; mA and/or kV adjustment per patient size (includes targeted exams where dose is matched to clinical indication); or iterative reconstruction. Contrast material: OMNIPAQUE 350; Contrast volume: 70 ml; Contrast route: INTRAVENOUS (IV); Other technique: STROKE PROTOCOL was implemented. COMPARISON: CT BRAIN NECK CTA 12/01/2021 8:42 AM FINDINGS: ANTERIOR CIRCULATION: Right internal carotid artery: Intracranial segment is patent with no significant stenosis or occlusion. No aneurysm. Right middle cerebral artery: No occlusion or significant stenosis. No aneurysm. Right anterior cerebral artery: No occlusion or significant stenosis. No aneurysm. Left internal carotid artery: Intracranial segment is patent with no significant stenosis. No aneurysm. Left middle cerebral artery: No occlusion or significant stenosis. No aneurysm. Left anterior cerebral artery: No occlusion or significant stenosis. No aneurysm. POSTERIOR CIRCULATION: Right vertebral artery: No occlusion or significant stenosis. No aneurysm. Left vertebral artery: No occlusion or significant stenosis. No aneurysm. Basilar artery: No occlusion or significant stenosis. No aneurysm. Right posterior cerebral artery: No occlusion or significant stenosis. No aneurysm. Left posterior cerebral artery: No occlusion or significant stenosis. No aneurysm. HEAD: Brain: Normal. No hemorrhage. Unremarkable white matter. No mass effect. Cerebral ventricles: Normal. No ventriculomegaly. Bones: Unremarkable. No acute fracture. Paranasal sinuses: Visualized sinuses are normal. No fluid levels. Mastoid air cells: Visualized mastoids are normal. No mastoid effusion. Soft tissues: Unremarkable. IMPRESSION: 1. No large vessel occlusion. 2. Unremarkable CT head. ASSESSMENT: ASPECTS ([place] Stroke Program Early CT Score) is 10. PROCEDURE INFORMATION: Exam: CTA Neck Without And With Contrast Exam date and time: 05/17/2025 8:05 PM Age: 39 years old Clinical indication: Stroke-like symptoms; Left upper extremity numbness/paresthesia; Additional info: Left face and arm nubmness TECHNIQUE: Imaging protocol: Computed tomographic angiography of the neck without and with contrast. Exam focused on the cervical segments of the vasculature. 3D rendering (Not supervised by radiologist): MIP and/or 3D reconstructed images were created by the technologist. Radiation optimization: All CT scans at this facility use at least one of these dose optimization techniques: automated exposure control; mA and/or kV adjustment per patient size (includes targeted exams where dose is matched to clinical indication); or iterative reconstruction. Contrast material: OMNIPAQUE 350; Contrast volume: 70 ml; Contrast route: INTRAVENOUS (IV); COMPARISON: CT BRAIN NECK CTA 12/01/2021 8:42 AM FINDINGS: Right common carotid artery: No stenosis. No dissection or occlusion. Right internal carotid artery: No stenosis of the extracranial segment. No dissection or occlusion. Right external carotid artery: No occlusion or stenosis of the origin. Left common carotid artery: No stenosis. No dissection or occlusion. Left internal carotid artery: No stenosis of the extracranial segment. No dissection or occlusion. Left external carotid artery: No occlusion or stenosis of the origin. Right vertebral artery: No stenosis. No dissection or occlusion. Left vertebral artery: No stenosis. No dissection or occlusion. Soft tissues: Normal. No significant soft tissue swelling. Bones/joints: No acute fracture. IMPRESSION: No stenosis or occlusion. REFERENCES: NASCET CRITERIA. The degree of stenosis in the cervical segment of the internal carotid artery is based on NASCET criteria. Normal is no stenosis. Mild is less than 50% stenosis. Moderate is 50-69% stenosis. Severe is 70% to 99% stenosis. Total occlusion is no detectable patent lumen. Dictated and Authenticated by: Melvin Irby MD. Orderin Kenton Arzola MD
== END 2025-05-17 21:25 | disposition home or self-care (01) ==
PROVIDERS: Emergency Provider Emergency Medicine; PCP Nurse Practitioner Family
DX: G43.909 Migraine, unspecified, not intractable, without status migrainosus; R20.0 Anesthesia of skin; I10 Essential (primary) hypertension
CPT/HCPCS: 36415; 36416; 70496; 70498; 80053; 82962; 93005; 96374; 96375; 99285; 83735; 85025; 93010; 99284; J0780; J1200; J3490

== ENCOUNTER 2025-05-25 09:35 | Outpatient (CLI) | payer MEDICAID, SELFPAY ==
--- NOTE | 2025-05-25 09:30 | DI.RAD_ITS ---
Exam(s) XR FOOT LT COMPLETE XR FOOT RT COMPLETE EXAM: XR FOOT LT COMPLETE CLINICAL HISTORY: M79.672 Left foot pain. TECHNIQUE: 2D digital imaging was performed. Three views of both feet. COMPARISON: CR XR FOOT RT COMPLETE from 05/25/2025 FINDINGS: BONES: No acute fracture is present. No bony destructive lesion is seen. Small calcaneal enthesophytes bilaterally. Tiny plantar calcaneal spur on the left. JOINTS: No dislocation present. Joint spaces are maintained. No periarticular erosions. The plantar arches are maintained. SOFT TISSUE: Normal. IMPRESSION: Small heel spurs. DATA REPOSITORY: RADIATION DOSE DELIVERED:
== END 2025-05-25 09:55 ==
LOC: DI 09:35
PROVIDERS: PCP Family Medicine; Visit Provider Podiatrist
DX: M79.671 Pain in right foot (principal); M79.672 Pain in left foot
CPT/HCPCS: 73630

== ENCOUNTER 2025-06-22 15:59 | Outpatient (REF) | payer MEDICAID, SELFPAY ==
[2025-06-22 16:57] LABS: Anion Gap 11.5 mmol/L (3-11); BUN 12 mg/dL (7-18); CO2 27.5 mmol/L (21.0-32.0); Calcium 9.0 mg/dL (8.5-10.1); Chloride 101 mmol/L (98-107); Estimated GFR 94.87 (mL/min/1.73m2); Glucose 74 mg/dL (74-106); Potassium 3.8 mmol/L (3.5-5.1); Sodium 140 mmol/L (136-145)
== END 2025-06-22 16:00 | disposition home or self-care (01) ==
LOC: NCHCN 15:59
PROVIDERS: PCP Family Medicine; Visit Provider Family Medicine
DX: I10 Essential (primary) hypertension (principal)
CPT/HCPCS: 80048